=== PATIENT | female | born 1970 | race Caucasian/White ===

== ENCOUNTER 2016-11-13 19:21 | Emergency (ER) | payer BC ==
[~2016-11-13] VITALS: Ht 162.6 cm; Wt 108.9 kg
[~2016-11-13 19:21] MED LIST: ALPR0.25 PO; ALPR1TAB PO; AMIT10TA PO; DICY20TA30 PO; DULO20CA PO; DULO60CA6 PO; HYDR-2666 PO; HYDR-2678 PO; HYDR-971 PO; LANS15CA PO; LIDO30CR6 TP; MIRT15TA PO; NITR100C62 PO; OMEP20CA9 PO; ONDA4TAB10 SL; OXYC-323 PO; PANT40TA3 PO; PROM25TA10 PO; SIMV5TAB PO; TRAM50TA PO
[2016-11-13 21:56] LABS: BASO % 1 % (0-3); EOS % 3 % (0-3); HEMATOCRIT 33.9 % (36.0-47.0); HEMOGLOBIN 10.4 g/dL (12.0-15.5); LYMPH # 1.2 x10^3/uL (1.0-4.8); LYMPH % 19 % (24-48); MEAN CORPUSCULAR HEMOGLOBIN 25 pg (25-35); MEAN CORPUSCULAR HGB CONC 31 g/dL (31-37); MEAN CORPUSCULAR VOLUME 80 fL (79-100); MONO % 8 % (0-9); NEUT % 70 % (31-73); PLATELET COUNT 253 x10^3/uL (140-400); RED BLOOD COUNT 4.22 x10^6/uL (3.50-5.40); RED CELL DISTRIBUTION WIDTH 15.1 % (11.5-14.5); WHITE BLOOD COUNT 6.4 x10^3/uL (4.0-11.0)
[2016-11-13] MEDS ORDERED: HYDROMORPHONE 2 MG/ML VIAL. IV ONE (22:00)
[2016-11-13] MEDS ORDERED: IV NORMAL SALINE 1000ML BAG 1,000 ML IV ONE (22:00)
[2016-11-13] MEDS ORDERED: ONDANSETRON PF 4 MG/2 ML VIAL. IV ONE (22:00)
[2016-11-13 22:10] LABS: CALCIUM 9.2 mg/dL (8.5-10.1); CREATININE 0.8 mg/dL (0.6-1.0); GFR 76.9
[2016-11-13 22:12] LABS: ALBUMIN 3.8 g/dL (3.4-5.0); ALBUMIN/GLOBULIN RATIO 1.1 (1.0-1.7); TOTAL BILIRUBIN 0.2 mg/dL (0.2-1.0); TOTAL PROTEIN 7.3 g/dL (6.4-8.2)
--- NOTE | 2016-11-13 22:41 | PHYS DOC ---
Past Medical History Past Medical History: Anxiety, Constipation, Depression, GERD, High Cholesterol Additional Past Medical Histor: rectal ulcers endometrosis c.diff insomnia Past Surgical History: Appendectomy, Cholecystectomy, Hysterectomy Additional Past Surgical Histo: rectal sx Alcohol Use: Rarely Drug Use: None Adult General Chief Complaint Chief Complaint: RECTAL BLEED HPI HPI Patient is a 46 year old female who presents here today complaining of rectal pain and suprapubic discomfort as well as rectal bleeding that has been going on for approximately 1 day. Patient reports that she had similar symptoms in the past. Patient reports she has no history of hypertension diabetes liver longer kidney problems. Patient has had her appendix gallbladder and uterus removed in the past. Patient smokes about half a pack per day. Patient denied any alcohol or do any drugs. Patient is allergic to Keflex. Patient denies any fevers chills nausea vomiting. Patient reports she been having watery diarrhea approximately 2-3 bowel movement today. Patient has any constipation. Patient has a dysuria frequency or urgency. Patient reports that she had a colonoscopy approximately 6 months ago and was reported to have had a ulcer in her rectum. While in the ER, patient had a workup done with labs and a rectal exam. Patient' s labs are unremarkable. Patient's hemoglobin has remained stable. Patient was given medication to assist with the pain. Patient is currently clinically and hemodynamically stable for discharge to home. Patient likely has an exacerbation of her rectal ulcer versus lower GI bleed type symptoms. I discussed the patient that she will need to follow-up with her GI specialist for a repeat colonoscopy/sigmoidoscopy. Patient's vital signs remained stable. Patient denies any chest pain shortness of breath fevers shaking chills cough cold runny nose. Patient denies any dizziness syncope or presyncopal episodes. Review of Systems Review of Systems Constitutional: Denies fever or chills [] Eyes: Denies change in visual acuity, redness, or eye pain [] All other review systems are negative except as documented in the history of present illness portion Current Medications Current Medications Current Medications Medications (Trade) Dose Ordered Sig/Ga Start Time Stop Time Status Last Admin Dose Admin Hydromorphone HCl (Dilaudid) 1 mg 1X ONCE 11/13/16 22:00 11/13/16 22:01 DC Ondansetron HCl (Zofran) 4 mg 1X ONCE 11/13/16 22:00 11/13/16 22:01 DC Sodium Chloride (Iv Sodium Chloride 0.9% 1000ml Bag) 1,000 ml @ 999 mls/hr 1X ONCE 11/13/16 22:00 11/13/16 23:00 Allergies Allergies Allergies Coded Allergies Type Severity Reaction Last Updated Verified cephalexin Allergy Intermediate rash, red ears 08/14/16 No Physical Exam Physical Exam Constitutional: Well developed, well nourished, no acute distress, non-toxic appearance. [] HENT: Normocephalic, atraumatic, bilateral external ears normal, oropharynx moist, no oral exudates, nose normal. [] Eyes: PERRLA, EOMI, conjunctiva normal, no discharge. [] Neck: Normal range of motion, no tenderness, supple, no stridor. [] Cardiovascular:Heart rate regular rhythm, no murmur [] Lungs & Thorax: Bilateral breath sounds clear to auscultation [] Abdomen: Bowel sounds normal, soft, no tenderness, no masses, no pulsatile masses. [] Skin: Warm, dry, no erythema, no rash. [] Back: No tenderness, no CVA tenderness. [] Extremities: No tenderness, no cyanosis, no clubbing, ROM intact, no edema. [] Neurologic: Alert and oriented X 3, normal motor function, normal sensory function, no focal deficits noted. [] Psychologic: Affect normal, judgement normal, mood normal. [] Current Patient Data Vital Signs Vital Signs Date Time Temp Pulse Resp B/P Pulse Ox O2 Delivery O2 Flow Rate FiO2 11/13/16 20:20 98.2 92 14 151/102 98 Room Air 98.2 Lab Values Laboratory Tests Test 11/13/16 20:25 White Blood Count 6.4x10^3/uL (4.0-11.0) Red Blood Count 4.22x10^6/uL (3.50-5.40) Hemoglobin 10.4g/dL (12.0-15.5) L Hematocrit 33.9% (36.0-47.0) L Mean Corpuscular Volume 80fL (79-100) Mean Corpuscular Hemoglobin 25pg (25-35) Mean Corpuscular Hemoglobin Concent 31g/dL (31-37) Red Cell Distribution Width 15.1% (11.5-14.5) H Platelet Count 253x10^3/uL (140-400) Neutrophils (%) (Auto) 70% (31-73) Lymphocytes (%) (Auto) 19% (24-48) L Monocytes (%) (Auto) 8% (0-9) Eosinophils (%) (Auto) 3% (0-3) Basophils (%) (Auto) 1% (0-3) Neutrophils # (Auto) 4.5x10^3uL (1.8-7.7) Lymphocytes # (Auto) 1.2x10^3/uL (1.0-4.8) Monocytes # (Auto) 0.5x10^3/uL (0.0-1.1) Eosinophils # (Auto) 0.2x10^3/uL (0.0-0.7) Basophils # (Auto) 0.0x10^3/uL (0.0-0.2) Sodium Level 143mmol/L (136-145) Potassium Level 4.0mmol/L (3.5-5.1) Chloride Level 106mmol/L (98-107) Carbon Dioxide Level 26mmol/L (21-32) Anion Gap 11 (6-14) Blood Urea Nitrogen 16mg/dL (7-20) Creatinine 0.8mg/dL (0.6-1.0) Estimated GFR (Cockcroft-Gault) 76.9 BUN/Creatinine Ratio 20 (6-20) Glucose Level 108mg/dL (70-99) H Calcium Level 9.2mg/dL (8.5-10.1) Total Bilirubin 0.2mg/dL (0.2-1.0) Aspartate Amino Transferase (AST) 16U/L (15-37) Alanine Aminotransferase (ALT) 41U/L (14-59) Alkaline Phosphatase 113U/L (46-116) Total Protein 7.3g/dL (6.4-8.2) Albumin 3.8g/dL (3.4-5.0) Albumin/Globulin Ratio 1.1 (1.0-1.7) Laboratory Tests 11/13/16 20:25 Laboratory Tests 11/13/16 20:25 EKG EKG [] Radiology/Procedures Radiology/Procedures [] Impressions: A/P this is a 46-year-old female who presents here today with recurrence of her rectal bleeding. Patient reports she's had similar symptoms in the past has been diagnosed with a ulceration on the wall of her rectum. Patient presents here today secondary to discomfort in her rectal area and she reports some bloody stools. Patient denies any hemodynamic instability. Patient's workup here is unremarkable. Patient will be stable for discharge home with close outpatient follow-up. Patient was instructed to return to the ER if she has any dizziness or increasing rectal bleeding. Course & Med Decision Making Course & Med Decision Making Pertinent Labs and Imaging studies reviewed. (See chart for details) [] Dragon Disclaimer Dragon Disclaimer This electronic medical record was generated, in whole or in part, using a voice recognition dictation system. Departure Departure Impression: Primary Impression: Abdominal pain Additional Impressions: Nausea & vomiting Rectal pain, chronic Rectal bleeding Disposition: 01 HOME, SELF-CARE Condition: STABLE Referrals: NO PCP (PCP) Patient Instructions: Rectal Bleeding Additional Instructions: Please follow up with her primary care physician for referral to see her GI specialist for repeat colonoscopy. Problem Qualifiers HASMUKH REBOLLEDO MD Nov 13, 2016 22:41
[2016-11-13 23:49] VITALS: BP 138/81
== END 2016-11-13 23:55 | disposition home or self-care (01) ==
LOC: ER 19:21
DX: K62.5 Hemorrhage of anus and rectum (principal); R10.9 Unspecified abdominal pain; R19.7 Diarrhea, unspecified; R11.2 Nausea with vomiting, unspecified; G89.29 Other chronic pain; E78.00 Pure hypercholesterolemia, unspecified; F17.210 Nicotine dependence, cigarettes, uncomplicated; K21.9 Gastro-esophageal reflux disease without esophagitis; Z90.49 Acquired absence of other specified parts of digestive tract; Z90.710 Acquired absence of both cervix and uterus; Z98.890 Other specified postprocedural states; Z88.1 Allergy status to other antibiotic agents
CPT/HCPCS: 36415; 80053; 85027; 96361; 96374; 96375; 99284; J1170; J2405; J7030

== ENCOUNTER 2016-11-24 18:46 | Emergency (ER) | payer BC ==
[~2016-11-24] VITALS: Ht 162.6 cm; Wt 108.9 kg
--- NOTE | 2016-11-24 20:43 | PHYS DOC ---
Past Medical History Past Medical History: Anxiety, Constipation, Depression, GERD, High Cholesterol Additional Past Medical Histor: rectal ulcers endometrosis c.diff insomnia Past Surgical History: Appendectomy, Cholecystectomy, Hysterectomy Additional Past Surgical Histo: rectal sx Alcohol Use: Occasionally Drug Use: None Adult General Chief Complaint Chief Complaint: VAGINAL BLEEDING HPI HPI Patient is a 46 year old female well known to the emergency department who presents with pelvic pain. Patient reports she had sexual intercourse this afternoon. During intercourse and after, she has been having lower pelvic pain she describes a sharp pain without clear mitigating factors. She also reports small amount of vaginal bleeding, which is concerning to her as she has had a hysterectomy. She tried some ibuprofen at home with insufficient relief. No other acute complaints. Review of Systems Review of Systems Constitutional: Denies fever or chills Respiratory: Denies cough or shortness of breath Cardiovascular: Denies chest pain GI: Denies abdominal pain, nausea, vomiting, or diarrhea : Pelvic pain, vaginal bleeding Musculoskeletal: Denies back pain or joint pain Neurologic: Denies headache, focal weakness or sensory changes Current Medications Current Medications Current Medications Medications (Trade) Dose Ordered Sig/Ga Start Time Stop Time Status Last Admin Dose Admin Acetaminophen/ Hydrocodone Bitart (Lortab 5/325) 2 tab 1X ONCE 11/24/16 21:45 11/24/16 21:46 DC Tramadol HCl (Ultram) 50 mg 1X ONCE 11/24/16 20:45 11/24/16 21:01 DC 11/24/16 21:13 50 MG Allergies Allergies Allergies Coded Allergies Type Severity Reaction Last Updated Verified cephalexin Allergy Intermediate rash, red ears 08/14/16 No prochlorperazine Allergy Intermediate 11/24/16 Yes Physical Exam Physical Exam Constitutional: Well developed, well nourished, no acute distress, non-toxic appearance HENT: Normocephalic, atraumatic, bilateral external ears normal Eyes: EOMI, conjunctiva normal, no discharge Neck: Normal range of motion, no stridor Cardiovascular: Heart rate normal, regular rhythm, no murmur Lungs & Thorax: Bilateral breath sounds clear to auscultation Abdomen: Bowel sounds normal, soft, non-distended, suprapubic TTP Pelvic: Scant amount dark red blood in vault, no laceration or other source of bleeding identified, no CMT, R adnexal tenderness Skin: Warm, dry, no erythema, no rash Extremities: No obvious deformity, no edema Neurologic: Alert and oriented X 3, no gross deficits noted Current Patient Data Vital Signs Vital Signs Date Time Temp Pulse Resp B/P Pulse Ox O2 Delivery O2 Flow Rate FiO2 11/24/16 22:00 76 133/80 98 Room Air 11/24/16 21:13 18 11/24/16 19:22 99.3 99.3 Lab Values Laboratory Tests Test 11/24/16 20:58 Urine Collection Type Void Urine Color Yellow Urine Clarity Clear Urine pH 7.0 Urine Specific [place] 1.015 Urine Protein Negativemg/dL (NEG-TRACE) Urine Glucose (UA) Negativemg/dL (NEG) Urine Ketones (Stick) Negativemg/dL (NEG) Urine Blood Large (NEG) Urine Nitrite Negative (NEG) Urine Bilirubin Negative (NEG) Urine Urobilinogen Dipstick 0.2mg/dL (0.2 mg/dL) Urine Leukocyte Esterase Small (NEG) Urine RBC >40/HPF (0-2) Urine WBC 1-4/HPF (0-4) Urine Squamous Epithelial Cells Many/LPF Urine Bacteria Moderate/HPF (0-FEW) Microbiology 11/24/16 Wet Prep - Final, Complete Microbiology 11/24/16 Wet Prep - Final, Complete EKG EKG [] Radiology/Procedures Radiology/Procedures Pelvic US: Impression: Status post hysterectomy and bilateral oophorectomy. No abnormality is detected. Course & Med Decision Making Course & Med Decision Making Pertinent Labs and Imaging studies reviewed. (See chart for details) Patient is 46-year-old female who presents with pelvic pain and vaginal bleeding after intercourse this afternoon. No source of bleeding identified, only very small amount of blood in vault. Pelvic ultrasound ordered given right adnexal tenderness. Imaging results as above. Pelvic swabs notable for clue cells indicating bacterial vaginosis. Tramadol initially ordered for pain control; patient reports continued pain after this, so dose of [place] ordered. Patient then became argumentative asking for IV pain medication; I discussed with her that I did not believe this was an appropriate treatment for her pain, especially as she has been flagged for drug-seeking behavior in the past. I discussed results with patient. I instructed her to follow-up with [facility]. Patient discharged home with prescription for Flagyl and return precautions. Dragon Disclaimer Dragon Disclaimer This electronic medical record was generated, in whole or in part, using a voice recognition dictation system. Departure Departure Impression: Primary Impression: Painful sexual intercourse Additional Impressions: Vaginal bleeding Bacterial vaginosis Disposition: 01 HOME, SELF-CARE Condition: STABLE Referrals: UNKNOWN PCP NAME (PCP) Patient Instructions: Bacterial Vaginosis, Pelvic Pain, Female Additional Instructions: Thank you for allowing us to provide care today in the Emergency Department. Take the provided medication as directed. Schedule a follow up appointment with your ObGyn. Return promptly to the Emergency Department if you develop any new or concerning symptoms. Scripts Metronidazole (Flagyl)500 Mg Tablet1 Tab PO BID #14 TAB Prov:COREY BURNHAM MD 11/24/16 Problem Qualifiers COREY BURNHAM MD Nov 24, 2016 20:43
[2016-11-24] MEDS ORDERED: TRAMADOL 50 MG TABLET. PO ONE (20:45)
[2016-11-24 21:05] LABS: BILIRUBIN,URINE NEGATIVE (NEG); GLUCOSE,URINE NEGATIVE (NEG); NITRITE,URINE NEGATIVE (NEG); PROTEIN,URINE NEGATIVE (NEG-TRACE); UROBILINOGEN,URINE 0.2 mg/dL (0.2 mg/dL)
[2016-11-24 21:19] LABS: BACTERIA,URINE MODERATE /HPF (0-FEW); RBC,URINE >40 /HPF (0-2); SQUAMOUS EPITHELIAL CELL,UR MANY /LPF
[2016-11-24] MEDS ORDERED: HYDROCODONE/APAP 5/325MG TABLET. PO ONE (21:45)
[2016-11-24 22:00] VITALS: BP 133/80
--- NOTE | 2016-11-24 22:29 | RAD ---
Pelvis with transvaginal ultrasound Indication: Pelvic pain and vaginal bleeding. Patient has had prior complete hysterectomy in 2008. Transabdominal and transvaginal pelvic sonography was performed. The uterus is surgically absent. The right and left ovaries are surgically absent. The bladder is unremarkable. No pelvic mass or fluid collection is seen. Impression: Status post hysterectomy and bilateral oophorectomy. No abnormality is detected. Electronically signed by: Yo Fritz MD (Nov 24, 2016 22:28:22)
[2016-11-24] MEDS ORDERED: METR500T PO (22:56)
== END 2016-11-24 23:07 | disposition home or self-care (01) ==
LOC: ER 18:52
DX: N93.8 Other specified abnormal uterine and vaginal bleeding (principal); N76.0 Acute vaginitis; F41.9 Anxiety disorder, unspecified; F32.9 Major depressive disorder, single episode, unspecified; E78.00 Pure hypercholesterolemia, unspecified; G47.00 Insomnia, unspecified; Z90.710 Acquired absence of both cervix and uterus; Z90.49 Acquired absence of other specified parts of digestive tract; Z88.1 Allergy status to other antibiotic agents; Z88.8 Allergy status to other drugs, medicaments and biological substances
CPT/HCPCS: 76830; 76856; 81001; 99285; Q0111; 87086; 87491; 87591

== ENCOUNTER 2016-12-01 18:34 | Emergency (ER) | payer BC ==
[~2016-12-01] VITALS: Ht 162.6 cm; Wt 108.9 kg
[~2016-12-01 18:34] MED LIST changes: +METR500T PO
[2016-12-01 21:18] VITALS: BP 118/56
[2016-12-01] MEDS ORDERED: HYDROMORPHONE 2 MG/ML VIAL. IM ONE (21:30)
[2016-12-01] MEDS ORDERED: ONDANSETRON ODT 4 MG TAB.RAPDIS PO ONE (21:30)
[2016-12-01 21:39] LABS: BASO # 0.1 x10^3/uL (0.0-0.2); BASO % 1 % (0-3); EOS % 2 % (0-3); HEMATOCRIT 32.2 % (36.0-47.0); HEMOGLOBIN 10.3 g/dL (12.0-15.5); LYMPH # 1.1 x10^3/uL (1.0-4.8); LYMPH % 15 % (24-48); MEAN CORPUSCULAR HEMOGLOBIN 25 pg (25-35); MEAN CORPUSCULAR HGB CONC 32 g/dL (31-37); MEAN CORPUSCULAR VOLUME 79 fL (79-100); MONO % 6 % (0-9); NEUT % 76 % (31-73); PLATELET COUNT 269 x10^3/uL (140-400); RED BLOOD COUNT 4.06 x10^6/uL (3.50-5.40); WHITE BLOOD COUNT 7.3 x10^3/uL (4.0-11.0)
[2016-12-01 21:56] LABS: CREATININE 0.8 mg/dL (0.6-1.0); GFR 76.9; POTASSIUM 3.8 mmol/L (3.5-5.1)
[2016-12-01 21:57] LABS: MAGNESIUM 1.9 mg/dL (1.8-2.4)
--- NOTE | 2016-12-01 22:09 | PHYS DOC ---
Past Medical History Past Medical History: Anemia, Anxiety, Constipation, Depression, GERD, High Cholesterol Additional Past Medical Histor: rectal ulcers endometrosis c.diff insomnia Past Surgical History: Appendectomy, Cholecystectomy, Hysterectomy Additional Past Surgical Histo: rectal sx Alcohol Use: Occasionally Drug Use: None Adult General Chief Complaint Chief Complaint: RECTAL BLEED HPI HPI Patient is a 46 year old female who presents with complaint of lower abdominal pain and rectal bleeding. The patient states that her symptoms started within the last 2-3 hours. The patient has a well-documented history of recurrent rectal bleeding secondary to rectal ulcers. The patient has had multiple visits to the emergency department for recurrent symptoms. Patient states that she is currently taking sulfasalazine and hydrocortisone suppositories. Patient rates her pain currently as 9 out of 10. Patient follows Dr. Jauregui for primary care. Patient denies any fevers. The patient states that earlier she passed what appeared to be clots. Patient has not had any continued bleeding at this time. Review of Systems Review of Systems Constitutional: Denies fever or chills [] Eyes: Denies change in visual acuity, redness, or eye pain [] HENT: Denies nasal congestion or sore throat [] Respiratory: Denies cough or shortness of breath [] Cardiovascular: Denies chest pain or edema [] GI: Abdominal pain, rectal bleeding, denies nausea or vomiting [] : Denies dysuria or hematuria [] Musculoskeletal: Denies back pain or joint pain [] Integument: Denies rash or skin lesions [] Neurologic: Denies headache, focal weakness or sensory changes [] Current Medications Current Medications Current Medications Medications (Trade) Dose Ordered Sig/Ga Start Time Stop Time Status Last Admin Dose Admin Hydromorphone HCl (Dilaudid) 1 mg 1X ONCE 12/01/16 21:30 12/01/16 21:31 DC 12/01/16 21:27 1 MG Ondansetron HCl (Zofran Odt) 4 mg 1X ONCE 12/01/16 21:30 12/01/16 21:31 DC 12/01/16 21:27 4 MG Allergies Allergies Allergies Coded Allergies Type Severity Reaction Last Updated Verified cephalexin Allergy Intermediate rash, red ears 08/14/16 No prochlorperazine Allergy Intermediate 11/24/16 Yes Physical Exam Physical Exam Constitutional: Alert, afebrile, appears in [id number] discomfort. [] HENT: Normocephalic, atraumatic, bilateral external ears normal, oropharynx moist, no oral exudates, nose normal. [] Eyes: PERRLA, EOMI, conjunctiva normal, no discharge. [] Neck: Normal range of motion, no tenderness, supple, no stridor. [] Cardiovascular:Heart rate regular rhythm, no murmur [] Lungs & Thorax: Bilateral breath sounds clear to auscultation [] Abdomen: Bowel sounds normal, soft, suprapubic tenderness to palpation, no guarding or rebound tenderness, no masses, no pulsatile masses. Rectal: No external fissures, scant amount of bright red blood mixed with normal colored stool on rectal exam, nontender on exam [] Skin: Warm, dry, no erythema, no rash. [] Back: No tenderness, no CVA tenderness. [] Extremities: No tenderness, no cyanosis, no clubbing, ROM intact, no edema. [] Neurologic: Alert and oriented X 3, normal motor function, normal sensory function, no focal deficits noted. [] Current Patient Data Vital Signs Vital Signs Date Time Temp Pulse Resp B/P Pulse Ox O2 Delivery O2 Flow Rate FiO2 12/01/16 21:27 18 12/01/16 21:18 84 118/56 94 Room Air 12/01/16 19:26 98.4 98.4 Lab Values Laboratory Tests Test 12/01/16 21:20 White Blood Count 7.3x10^3/uL (4.0-11.0) Red Blood Count 4.06x10^6/uL (3.50-5.40) Hemoglobin 10.3g/dL (12.0-15.5) L Hematocrit 32.2% (36.0-47.0) L Mean Corpuscular Volume 79fL (79-100) Mean Corpuscular Hemoglobin 25pg (25-35) Mean Corpuscular Hemoglobin Concent 32g/dL (31-37) Red Cell Distribution Width 15.0% (11.5-14.5) H Platelet Count 269x10^3/uL (140-400) Neutrophils (%) (Auto) 76% (31-73) H Lymphocytes (%) (Auto) 15% (24-48) L Monocytes (%) (Auto) 6% (0-9) Eosinophils (%) (Auto) 2% (0-3) Basophils (%) (Auto) 1% (0-3) Neutrophils # (Auto) 5.5x10^3uL (1.8-7.7) Lymphocytes # (Auto) 1.1x10^3/uL (1.0-4.8) Monocytes # (Auto) 0.5x10^3/uL (0.0-1.1) Eosinophils # (Auto) 0.1x10^3/uL (0.0-0.7) Basophils # (Auto) 0.1x10^3/uL (0.0-0.2) Sodium Level 140mmol/L (136-145) Potassium Level 3.8mmol/L (3.5-5.1) Chloride Level 103mmol/L (98-107) Carbon Dioxide Level 27mmol/L (21-32) Anion Gap 10 (6-14) Blood Urea Nitrogen 12mg/dL (7-20) Creatinine 0.8mg/dL (0.6-1.0) Estimated GFR (Cockcroft-Gault) 76.9 Glucose Level 99mg/dL (70-99) Calcium Level 9.0mg/dL (8.5-10.1) Magnesium Level 1.9mg/dL (1.8-2.4) Laboratory Tests 12/01/16 21:20 Laboratory Tests 12/01/16 21:20 EKG EKG Not performed [] Radiology/Procedures Radiology/Procedures Not performed [] Course & Med Decision Making Course & Med Decision Making Pertinent Labs and Imaging studies reviewed. (See chart for details) The patient does not have continued signs of heavy rectal bleeding. The patient' s vital signs are stable and patient's hemoglobin is stable compared to previous results. The patient is likely experiencing intermittent bleeding from her rectal ulcers. Patient was provided with pain control in the emergency department. Advised to continue on home medications and follow up with Dr. Jauregui in the next 3 days. Advised return emergency department for any worsening symptoms. Patient was understanding and in agreement with treatment plan. Dragon Disclaimer Dragon Disclaimer This electronic medical record was generated, in whole or in part, using a voice recognition dictation system. Departure Departure Impression: Primary Impression: Abdominal pain Additional Impression: Rectal bleeding Disposition: HOME, SELF-CARE Condition: STABLE Referrals: UNKNOWN PCP NAME (PCP) Patient Instructions: Abdominal Pain (Nonspecific), Rectal Bleeding Additional Instructions: Follow-up with your primary doctor in the next 3 days. Return to the emergency department for any worsening symptoms. Problem Qualifiers Primary Impression: Abdominal pain Abdominal location: lower abdomen, unspecified Qualified Code: R10.30 - Lower abdominal pain, unspecified GALE CABALLERO MD Dec 01, 2016 22:09
== END 2016-12-01 22:17 | disposition home or self-care (01) ==
LOC: ER 18:34
DX: K62.5 Hemorrhage of anus and rectum (principal); R10.30 Lower abdominal pain, unspecified; E78.00 Pure hypercholesterolemia, unspecified; F32.9 Major depressive disorder, single episode, unspecified; K21.9 Gastro-esophageal reflux disease without esophagitis; Z90.49 Acquired absence of other specified parts of digestive tract; Z88.8 Allergy status to other drugs, medicaments and biological substances
CPT/HCPCS: 36415; 80048; 83735; 85027; 96372; 99284; J1170; Q0162

== ENCOUNTER 2016-12-12 11:40 | Emergency (ER) | payer BC ==
[~2016-12-12] VITALS: Ht 162.6 cm; Wt 108.9 kg
[2016-12-12] MEDS ORDERED: MORPHINE SULFATE 4 MG/ML DISP.SYRIN. IV ONE ×2 (12:15→13:45)
[2016-12-12] MEDS ORDERED: ONDANSETRON PF 4 MG/2 ML VIAL. IV ONE (12:15)
--- NOTE | 2016-12-12 12:40 | PHYS DOC ---
Past Medical History Past Medical History: Anemia, Anxiety, Constipation, Depression, GERD, High Cholesterol Additional Past Medical Histor: rectal ulcers endometrosis c.diff insomnia Past Surgical History: Appendectomy, Cholecystectomy, Hysterectomy Additional Past Surgical Histo: rectal sx Alcohol Use: Occasionally Drug Use: None Adult General Chief Complaint Chief Complaint: MULTIPLE TRAUMA/FALL HPI HPI 46-year-old female who had a fall from a 3-4 foot height off a ladder after she states she was trying to change a light bulb and the dog ran into a ladder and knocked the ladder and her onto the floor. She does not states she hit her head or had any loss of consciousness. She states she fell on her right and has significant left upper quadrant and left lateral abdominal pain. Patient was able to bear weight and ambulate with mild difficulty. She does also complain of some mild pain in her wrist and forearm but has full range of motion and has no swelling or bruising seen. Patient denies taking any blood thinning medications. She rates her pain a 8 out of 10 localized all to the left lateral abdominal wall and is made worse when she sits forward but has mild pain at rest. She denies any blood in her stool or urine. Review of Systems Review of Systems Constitutional: Denies fever or chills [] Eyes: Denies change in visual acuity, redness, or eye pain [] HENT: Denies nasal congestion or sore throat [] Respiratory: Denies cough or shortness of breath [] Cardiovascular: No additional information not addressed in HPI [] GI: Has abdominal pain, has nausea, denies vomiting, denies bloody stools or diarrhea [] : Denies dysuria or hematuria [] Musculoskeletal: Denies back pain or joint pain [] Integument: Denies rash or skin lesions [] Neurologic: Denies headache, focal weakness or sensory changes [] Endocrine: Denies polyuria or polydipsia [] Current Medications Current Medications Current Medications Medications (Trade) Dose Ordered Sig/Ga Start Time Stop Time Status Last Admin Dose Admin Iohexol (Omnipaque 300 Mg/ml) 75 ml 1X ONCE 12/12/16 12:45 12/12/16 12:49 DC 12/12/16 13:17 75 ML Morphine Sulfate 4 mg 1X ONCE 12/12/16 13:45 12/12/16 13:46 DC 12/12/16 13:50 4 MG Ondansetron HCl (Zofran) 4 mg 1X ONCE 12/12/16 12:15 12/12/16 12:16 DC 12/12/16 12:33 4 MG Allergies Allergies Allergies Coded Allergies Type Severity Reaction Last Updated Verified cephalexin Allergy Intermediate rash, red ears 08/14/16 No prochlorperazine Allergy Intermediate 11/24/16 Yes Physical Exam Physical Exam Constitutional: Well developed, well nourished, no acute distress, non-toxic appearance. [] HENT: Normocephalic, atraumatic, bilateral external ears normal, oropharynx moist, no oral exudates, nose normal. [] Eyes: PERRLA, EOMI, conjunctiva normal, no discharge. [] Neck: Normal range of motion, no tenderness, supple, no stridor. [] Cardiovascular:Heart rate regular rhythm, no murmur [] Lungs & Thorax: Bilateral breath sounds clear to auscultation [] Abdomen: Bowel sounds normal, soft, moderate LUQ and left lateral abdominal wall tenderness, no masses, no pulsatile masses. [] Skin: Warm, dry, no erythema, no rash. [] Back: No tenderness, no CVA tenderness. [] Extremities: No significant tenderness in any extremity, no cyanosis, no clubbing, ROM intact, no edema, there is no swelling or bruising. [] Neurologic: Alert and oriented X 3, normal motor function, normal sensory function, no focal deficits noted. [] Psychologic: Affect normal, judgement normal, mood normal. [] Current Patient Data Vital Signs Vital Signs Date Time Temp Pulse Resp B/P Pulse Ox O2 Delivery O2 Flow Rate FiO2 12/12/16 13:50 16 97 Room Air 12/12/16 12:03 98.2 112 151/90 98.2 Lab Values Laboratory Tests Test 12/12/16 12:30 12/12/16 12:40 White Blood Count 6.2x10^3/uL (4.0-11.0) Red Blood Count 4.01x10^6/uL (3.50-5.40) Hemoglobin 9.9g/dL (12.0-15.5) L Hematocrit 31.5% (36.0-47.0) L Mean Corpuscular Volume 79fL (79-100) Mean Corpuscular Hemoglobin 25pg (25-35) Mean Corpuscular Hemoglobin Concent 31g/dL (31-37) Red Cell Distribution Width 15.2% (11.5-14.5) H Platelet Count 254x10^3/uL (140-400) Neutrophils (%) (Auto) 79% (31-73) H Lymphocytes (%) (Auto) 13% (24-48) L Monocytes (%) (Auto) 5% (0-9) Eosinophils (%) (Auto) 3% (0-3) Basophils (%) (Auto) 1% (0-3) Neutrophils # (Auto) 4.9x10^3uL (1.8-7.7) Lymphocytes # (Auto) 0.8x10^3/uL (1.0-4.8) L Monocytes # (Auto) 0.3x10^3/uL (0.0-1.1) Eosinophils # (Auto) 0.2x10^3/uL (0.0-0.7) Basophils # (Auto) 0.0x10^3/uL (0.0-0.2) Sodium Level 142mmol/L (136-145) Potassium Level 3.8mmol/L (3.5-5.1) Chloride Level 103mmol/L (98-107) Carbon Dioxide Level 27mmol/L (21-32) Anion Gap 12 (6-14) Blood Urea Nitrogen 17mg/dL (7-20) Creatinine 0.9mg/dL (0.6-1.0) Estimated GFR (Cockcroft-Gault) 67.1 Glucose Level 155mg/dL (70-99) H Calcium Level 9.1mg/dL (8.5-10.1) Urine Collection Type Void Urine Color Yellow Urine Clarity Clear Urine pH 6.0 Urine Specific [place] 1.025 Urine Protein Negativemg/dL (NEG-TRACE) Urine Glucose (UA) Negativemg/dL (NEG) Urine Ketones (Stick) Negativemg/dL (NEG) Urine Blood Negative (NEG) Urine Nitrite Negative (NEG) Urine Bilirubin Negative (NEG) Urine Urobilinogen Dipstick 0.2mg/dL (0.2 mg/dL) Urine Leukocyte Esterase Negative (NEG) Urine RBC 0/HPF (0-2) Urine WBC 1-4/HPF (0-4) Urine Squamous Epithelial Cells Few/LPF Urine Bacteria 0/HPF (0-FEW) Urine Mucus Mod/LPF Laboratory Tests 12/12/16 12:30 Laboratory Tests 12/12/16 12:30 EKG EKG [] Radiology/Procedures Radiology/Procedures CT of the abdomen/pelvis with IV contrast demonstrates the following: Indication left-sided pain associated with a fall off a ladder today. Axial images through the chest were obtained. 75 cc of Omnipaque 300 was administered intravenously. No oral contrast was administered. Note is made of a previous examination 09/30/2016. A significant finding in the abdominal wall is not seen. There is a small periumbilical hernia which appears uncomplicated. The lung bases are clear. A definite bony abnormality is not seen. The liver and spleen appear unremarkable. Clips are seen in the gallbladder fossa. The adrenal glands and kidneys appear normal. No pancreatic abnormality is seen. Acute finding in the abdomen is not apparent. In the pelvis no mass or acute finding or significant finding is seen. Occasional diverticula are seen associated with the sigmoid colon. Course & Med Decision Making Course & Med Decision Making Pertinent Labs and Imaging studies reviewed. (See chart for details) This 46-year-old female who's having significant left upper quadrant pain after having a fall will have a CT of her abdomen and pelvis to rule out any acute organ injury. I will also obtain blood work and urinalysis. IV will be placed for pain and nausea control. Ultimately if her imaging is negative, she'll be discharged home with a short course of pain control. Upon my reassessment, the patient feels improved after several doses of morphine. Her laboratory work was unremarkable. A CT of her abdomen and pelvis was also negative for any acute abnormalities. I will be discharging her home with a short course of pain control and told her to avoid any strenuous activities and to follow closely with her primary care doctor in the next several days for symptom resolution. She is very agreeable with this plan and will be discharged without incident. Charbel Disclaimer Charbel Disclaimer This electronic medical record was generated, in whole or in part, using a voice recognition dictation system. Departure Departure Impression: Primary Impression: Abdominal pain Additional Impression: Fall Disposition: HOME, SELF-CARE Admitting Physician: Other Condition: IMPROVED Referrals: UNKNOWN PCP NAME (PCP) Patient Instructions: Abdominal Pain (Nonspecific) Additional Instructions: Please take your pain medications as needed and avoid any strenuous activities. Follow up closely with your primary doctor in the next 2-3 days. Return to the ER if you develop any worsening of your symptoms. Scripts Hydrocodone/Apap 5-325 ([place] 5-325 Tablet)1 Each Tablet1 Tab PO PRN Q6HRS PRN PAIN #10 TAB Prov:DAKSHA BURTON DO 12/12/16 Problem Qualifiers DAKSHA BURTON DO Dec 12, 2016 12:40
[2016-12-12] MEDS ORDERED: IOHEXOL 300 MG/ML 75 ML VIAL IV ONE (12:45)
[2016-12-12 12:54] LABS: BILIRUBIN,URINE NEGATIVE (NEG); GLUCOSE,URINE NEGATIVE (NEG); NITRITE,URINE NEGATIVE (NEG); PROTEIN,URINE NEGATIVE (NEG-TRACE); UROBILINOGEN,URINE 0.2 mg/dL (0.2 mg/dL)
[2016-12-12 12:54] LABS: BASO % 1 % (0-3); EOS % 3 % (0-3); HEMATOCRIT 31.5 % (36.0-47.0); HEMOGLOBIN 9.9 g/dL (12.0-15.5); LYMPH # 0.8 x10^3/uL (1.0-4.8); LYMPH % 13 % (24-48); MEAN CORPUSCULAR HEMOGLOBIN 25 pg (25-35); MEAN CORPUSCULAR HGB CONC 31 g/dL (31-37); MEAN CORPUSCULAR VOLUME 79 fL (79-100); MONO % 5 % (0-9); NEUT % 79 % (31-73); PLATELET COUNT 254 x10^3/uL (140-400); RED BLOOD COUNT 4.01 x10^6/uL (3.50-5.40); RED CELL DISTRIBUTION WIDTH 15.2 % (11.5-14.5); WHITE BLOOD COUNT 6.2 x10^3/uL (4.0-11.0)
[2016-12-12 13:01] LABS: CALCIUM 9.1 mg/dL (8.5-10.1); CREATININE 0.9 mg/dL (0.6-1.0); GFR 67.1; POTASSIUM 3.8 mmol/L (3.5-5.1)
[2016-12-12 13:12] LABS: BACTERIA,URINE 0 /HPF (0-FEW); RBC,URINE 0 /HPF (0-2); SQUAMOUS EPITHELIAL CELL,UR FEW /LPF
--- NOTE | 2016-12-12 13:53 | RAD ---
Indication left-sided pain associated with a fall off a ladder today. Axial images through the chest were obtained. 75 cc of Omnipaque 300 was administered intravenously. No oral contrast was administered. Note is made of a previous examination 09/30/2016. A significant finding in the abdominal wall is not seen. There is a small periumbilical hernia which appears uncomplicated. The lung bases are clear. A definite bony abnormality is not seen. The liver and spleen appear unremarkable. Clips are seen in the gallbladder fossa. The adrenal glands and kidneys appear normal. No pancreatic abnormality is seen. Acute finding in the abdomen is not apparent. In the pelvis no mass or acute finding or significant finding is seen. Occasional diverticula are seen associated with the sigmoid colon. IMPRESSION: No acute finding seen in the abdomen or pelvis
[2016-12-12] MEDS ORDERED: HYDR-971 PO (13:58)
[2016-12-12 14:00] VITALS: BP 129/74
== END 2016-12-12 14:10 | disposition home or self-care (01) ==
LOC: ER 11:40
DX: R10.12 Left upper quadrant pain (principal); M25.539 Pain in unspecified wrist; M79.639 Pain in unspecified forearm; E78.00 Pure hypercholesterolemia, unspecified; K21.9 Gastro-esophageal reflux disease without esophagitis; G47.00 Insomnia, unspecified; Z90.710 Acquired absence of both cervix and uterus; Z90.49 Acquired absence of other specified parts of digestive tract; Z88.1 Allergy status to other antibiotic agents; Z88.8 Allergy status to other drugs, medicaments and biological substances; W11.XXXA Fall on and from ladder, initial encounter; Y93.89 Activity, other specified; Y99.8 Other external cause status; Y92.89 Other specified places as the place of occurrence of the external cause
CPT/HCPCS: 36415; 74177; 80048; 81001; 85027; 96374; 96375; 96376; 99285; J2270; J2405; Q9967

== ENCOUNTER 2016-12-14 17:21 | Emergency (ER) | payer BC ==
[~2016-12-14] VITALS: Ht 162.6 cm; Wt 108.9 kg
[2016-12-14 19:15] VITALS: BP 138/90
[2016-12-14] MEDS ORDERED: ONDANSETRON PF 4 MG/2 ML VIAL. IV ONE (21:00)
[2016-12-14] MEDS ORDERED: HYDROMORPHONE 2 MG/ML VIAL. IV ONE (21:00)
[2016-12-14 21:43] LABS: BASO # 0.1 x10^3/uL (0.0-0.2); BASO % 1 % (0-3); EOS % 4 % (0-3); HEMOGLOBIN 9.3 g/dL (12.0-15.5); LYMPH # 0.8 x10^3/uL (1.0-4.8); LYMPH % 15 % (24-48); MEAN CORPUSCULAR HEMOGLOBIN 25 pg (25-35); MEAN CORPUSCULAR HGB CONC 32 g/dL (31-37); MEAN CORPUSCULAR VOLUME 79 fL (79-100); MONO % 8 % (0-9); NEUT % 73 % (31-73); PLATELET COUNT 253 x10^3/uL (140-400); RED BLOOD COUNT 3.69 x10^6/uL (3.50-5.40); RED CELL DISTRIBUTION WIDTH 15.2 % (11.5-14.5); WHITE BLOOD COUNT 5.6 x10^3/uL (4.0-11.0)
[2016-12-14 21:53] LABS: CALCIUM 9.1 mg/dL (8.5-10.1); CREATININE 0.8 mg/dL (0.6-1.0); GFR 76.9
[2016-12-14 21:59] LABS: ALBUMIN 3.5 g/dL (3.4-5.0); ALBUMIN/GLOBULIN RATIO 0.9 (1.0-1.7); TOTAL BILIRUBIN 0.2 mg/dL (0.2-1.0); TOTAL PROTEIN 7.3 g/dL (6.4-8.2)
[2016-12-14] MEDS ORDERED: TRAM-29 PO (22:07)
--- NOTE | 2016-12-14 22:07 | PHYS DOC ---
Past Medical History Past Medical History: Anemia, Anxiety, Constipation, Depression, GERD, High Cholesterol Additional Past Medical Histor: rectal ulcers endometrosis c.diff insomnia Past Surgical History: Appendectomy, Cholecystectomy, Hysterectomy Additional Past Surgical Histo: rectal sx Alcohol Use: Occasionally Drug Use: None Adult General Chief Complaint Chief Complaint: ABDOMINAL PAIN HPI HPI Patient is a 46 year old female who presents to the ER today complaining of abdominal pain in the left upper area. Patient reports that she was seen in the ER here on Wednesday after falling from a chair that she was standing on and injured her abdomen up against the corner of a table. Patient came to the ER and had a full workup done at that time including blood tests and a CT scan of her abdomen to rule out bleeding. Patient reports that everything was normal and she was sent home with pain medicines. Patient reports she was doing better however the pain started getting worse today so she came to the ER. Patient denies any hypertension diabetes liver lung or kidney problems. Patient reports she smokes. No alcohol or drugs. Patient is allergic to Keflex. Patient denies any fevers shaking chills diarrhea cough URI symptoms dysuria frequency urgency hematuria nausea or vomiting. Patient's physical exam the ER reveals a small bruise to her left upper abdomen. Patient's vital signs are otherwise normal. Patient has no rebound or guarding. Patient does not present with signs or symptoms of be consistent with acute surgical abdomen. Patient's ER workup consisted of normal labs. Her hemoglobin is not significantly changed. My suspicion for intra-abdominal bleeding is extremely low in this patient. She is not on any anticoagulants. I feel very comfortable sending this patient home at this time for further outpatient evaluation. Patient has had multiple ER visits for pain management issues. I do not feel comfortable giving this patient any further narcotics. I will give her a days worth of Ultram until she is able see her primary care physician to reassess her pain and her need for pain medicines. Review of Systems Review of Systems Constitutional: Denies fever or chills [] Eyes: Denies change in visual acuity, redness, or eye pain [] All other review systems are negative except as documented in the history of present illness portion. Current Medications Current Medications Current Medications Medications (Trade) Dose Ordered Sig/Ga Start Time Stop Time Status Last Admin Dose Admin Hydromorphone HCl (Dilaudid) 0.5 mg 1X ONCE 12/14/16 21:00 12/14/16 21:01 DC 12/14/16 21:46 0.5 MG Ondansetron HCl (Zofran) 4 mg 1X ONCE 12/14/16 21:00 12/14/16 21:01 DC 12/14/16 21:46 4 MG Allergies Allergies Allergies Coded Allergies Type Severity Reaction Last Updated Verified cephalexin Allergy Intermediate rash, red ears 08/14/16 No prochlorperazine Allergy Intermediate 11/24/16 Yes Physical Exam Physical Exam Constitutional: Well developed, well nourished, no acute distress, non-toxic appearance. [] HENT: Normocephalic, atraumatic, bilateral external ears normal, oropharynx moist, no oral exudates, nose normal. [] Eyes: PERRLA, EOMI, conjunctiva normal, no discharge. [] Neck: Normal range of motion, no tenderness, supple, no stridor. [] Cardiovascular:Heart rate regular rhythm, no murmur [] Lungs & Thorax: Bilateral breath sounds clear to auscultation [] Abdomen: See above. Skin: Warm, dry, no erythema, no rash. [] Back: No tenderness, no CVA tenderness. [] Extremities: No tenderness, no cyanosis, no clubbing, ROM intact, no edema. [] Neurologic: Alert and oriented X 3, normal motor function, normal sensory function, no focal deficits noted. [] Psychologic: Affect normal, judgement normal, mood normal. [] Current Patient Data Vital Signs Vital Signs Date Time Temp Pulse Resp B/P Pulse Ox O2 Delivery O2 Flow Rate FiO2 12/14/16 21:46 Room Air 12/14/16 19:15 98.4 96 18 138/90 97 98.4 Lab Values Laboratory Tests Test 12/14/16 21:30 White Blood Count 5.6x10^3/uL (4.0-11.0) Red Blood Count 3.69x10^6/uL (3.50-5.40) Hemoglobin 9.3g/dL (12.0-15.5) L Hematocrit 29.0% (36.0-47.0) L Mean Corpuscular Volume 79fL (79-100) Mean Corpuscular Hemoglobin 25pg (25-35) Mean Corpuscular Hemoglobin Concent 32g/dL (31-37) Red Cell Distribution Width 15.2% (11.5-14.5) H Platelet Count 253x10^3/uL (140-400) Neutrophils (%) (Auto) 73% (31-73) Lymphocytes (%) (Auto) 15% (24-48) L Monocytes (%) (Auto) 8% (0-9) Eosinophils (%) (Auto) 4% (0-3) H Basophils (%) (Auto) 1% (0-3) Neutrophils # (Auto) 4.1x10^3uL (1.8-7.7) Lymphocytes # (Auto) 0.8x10^3/uL (1.0-4.8) L Monocytes # (Auto) 0.4x10^3/uL (0.0-1.1) Eosinophils # (Auto) 0.2x10^3/uL (0.0-0.7) Basophils # (Auto) 0.1x10^3/uL (0.0-0.2) Sodium Level 140mmol/L (136-145) Potassium Level 4.0mmol/L (3.5-5.1) Chloride Level 104mmol/L (98-107) Carbon Dioxide Level 27mmol/L (21-32) Anion Gap 9 (6-14) Blood Urea Nitrogen 11mg/dL (7-20) Creatinine 0.8mg/dL (0.6-1.0) Estimated GFR (Cockcroft-Gault) 76.9 BUN/Creatinine Ratio 14 (6-20) Glucose Level 113mg/dL (70-99) H Calcium Level 9.1mg/dL (8.5-10.1) Total Bilirubin 0.2mg/dL (0.2-1.0) Aspartate Amino Transferase (AST) 19U/L (15-37) Alanine Aminotransferase (ALT) 33U/L (14-59) Alkaline Phosphatase 115U/L (46-116) Total Protein 7.3g/dL (6.4-8.2) Albumin 3.5g/dL (3.4-5.0) Albumin/Globulin Ratio 0.9 (1.0-1.7) L Lipase 214U/L (73-393) Laboratory Tests 12/14/16 21:30 Laboratory Tests 12/14/16 21:30 EKG EKG [] Radiology/Procedures Radiology/Procedures [] Course & Med Decision Making Course & Med Decision Making Pertinent Labs and Imaging studies reviewed. (See chart for details) [] Dragon Disclaimer Dragon Disclaimer This electronic medical record was generated, in whole or in part, using a voice recognition dictation system. Departure Departure Impression: Primary Impression: Abdominal pain Additional Impression: Abdominal wall contusion Disposition: HOME, SELF-CARE Condition: STABLE Referrals: UNKNOWN PCP NAME (PCP) Patient Instructions: Abdominal Pain (Nonspecific), Contusion Scripts Tramadol Hcl (Ultram)50 Mg Tablet1 Tab PO Q6HRS #8 TAB Prov:HASMUKH REBOLLEDO MD 12/14/16 Problem Qualifiers HASMUKH REBOLLEDO MD Dec 14, 2016 22:07
== END 2016-12-14 22:43 | disposition home or self-care (01) ==
LOC: ER 17:21
DX: S30.1XXD Contusion of abdominal wall, subsequent encounter (principal); F17.200 Nicotine dependence, unspecified, uncomplicated; F41.9 Anxiety disorder, unspecified; F32.9 Major depressive disorder, single episode, unspecified; K21.9 Gastro-esophageal reflux disease without esophagitis; E78.00 Pure hypercholesterolemia, unspecified; G47.00 Insomnia, unspecified; Z90.710 Acquired absence of both cervix and uterus; Z90.49 Acquired absence of other specified parts of digestive tract; Z88.8 Allergy status to other drugs, medicaments and biological substances; Z88.1 Allergy status to other antibiotic agents; W07.XXXD Fall from chair, subsequent encounter
CPT/HCPCS: 36415; 80053; 83690; 85027; 96374; 96375; 99284; J1170; J2405

== ENCOUNTER 2016-12-20 14:42 | Emergency (ER) | payer BC ==
[~2016-12-20] VITALS: Ht 162.6 cm; Wt 108.9 kg
[~2016-12-20 14:42] MED LIST changes: +TRAM-29 PO
[2016-12-20] MEDS ORDERED: IV NORMAL SALINE 1000ML BAG 1,000 ML IV ONE (15:30)
[2016-12-20] MEDS ORDERED: ONDANSETRON PF 4 MG/2 ML VIAL. IV ONE (15:30)
[2016-12-20 15:57] LABS: BASO % 1 % (0-3); EOS % 3 % (0-3); HEMATOCRIT 31.2 % (36.0-47.0); LYMPH # 0.8 x10^3/uL (1.0-4.8); LYMPH % 14 % (24-48); MEAN CORPUSCULAR HEMOGLOBIN 25 pg (25-35); MEAN CORPUSCULAR HGB CONC 32 g/dL (31-37); MEAN CORPUSCULAR VOLUME 76 fL (79-100); MONO % 6 % (0-9); NEUT % 76 % (31-73); PLATELET COUNT 293 x10^3/uL (140-400); RED BLOOD COUNT 4.08 x10^6/uL (3.50-5.40); RED CELL DISTRIBUTION WIDTH 15.2 % (11.5-14.5)
[2016-12-20 16:00] VITALS: BP 146/109
--- NOTE | 2016-12-20 16:07 | RAD ---
PQRS Compliance Statement: One or more of the following individualized dose reduction techniques were utilized for this examination: 1. Automated exposure control 2. Adjustment of the mA and/or kV according to patient size 3. Use of iterative reconstruction technique CT of the abdomen and pelvis without contrast, 12/20/2016: History: Left-sided pain, nausea and vomiting Multidetector CT imaging was performed without oral or IV contrast as requested. The gallbladder is surgically absent. The unopacified liver shows no abnormality. No pancreatic abnormality is detected. The spleen is of normal size. The kidneys show no evidence of obstruction or mass. No urinary tract calculi are identified. The partially filled urinary bladder is unremarkable. There is mild aortoiliac calcific plaquing. No abdominal or pelvic adenopathy is seen. The uterus is surgically absent. The bowel loops are not dilated. There are sutures along the base of the cecum suggesting a previous appendectomy. No free fluid or free air is evident in the abdomen or pelvis. IMPRESSION: No acute abdominal or pelvic abnormality is detected.
[2016-12-20 16:09] LABS: CALCIUM 9.3 mg/dL (8.5-10.1); CREATININE 0.8 mg/dL (0.6-1.0); GFR 76.9; POTASSIUM 3.8 mmol/L (3.5-5.1)
[2016-12-20 16:15] LABS: ALBUMIN 3.8 g/dL (3.4-5.0); TOTAL BILIRUBIN 0.3 mg/dL (0.2-1.0); TOTAL PROTEIN 7.8 g/dL (6.4-8.2)
[2016-12-20] MEDS ORDERED: ONDA4TAB7 PO (16:36)
--- NOTE | 2016-12-20 16:37 | PHYS DOC ---
Past Medical History Past Medical History: Anemia, Anxiety, Constipation, Depression, GERD, High Cholesterol Additional Past Medical Histor: rectal ulcers endometrosis c.diff insomnia Past Surgical History: Appendectomy, Cholecystectomy, Hysterectomy Additional Past Surgical Histo: rectal sx Alcohol Use: Occasionally Drug Use: None Adult General Chief Complaint Chief Complaint: ABDOMINAL PAIN HPI HPI 46-year-old female presents with 24 hour history of nausea vomiting and epigastric pain. She states she's been unable to keep anything down now for 24 hours. She denies any fever chills sweats or hemoptysis. [] Review of Systems Review of Systems Constitutional: Denies fever or chills [] Eyes: Denies change in visual acuity, redness, or eye pain [] HENT: Denies nasal congestion or sore throat [] Respiratory: Denies cough or shortness of breath [] Cardiovascular: No additional information not addressed in HPI [] GI: Per history of present illness [] : Denies dysuria or hematuria [] Musculoskeletal: Denies back pain or joint pain [] Integument: Denies rash or skin lesions [] Neurologic: Denies headache, focal weakness or sensory changes [] Endocrine: Denies polyuria or polydipsia [] Current Medications Current Medications Current Medications Medications (Trade) Dose Ordered Sig/Ga Start Time Stop Time Status Last Admin Dose Admin Ondansetron HCl (Zofran) 8 mg 1X ONCE 12/20/16 15:30 12/20/16 15:31 DC 12/20/16 15:49 8 MG Sodium Chloride (Iv Sodium Chloride 0.9% 1000ml Bag) 1,000 ml @ 1,000 mls/hr 1X ONCE 12/20/16 15:30 12/20/16 16:29 DC 12/20/16 15:47 1,000 MLS/HR Allergies Allergies Allergies Coded Allergies Type Severity Reaction Last Updated Verified cephalexin Allergy Intermediate rash, red ears 08/14/16 No prochlorperazine Allergy Intermediate 11/24/16 Yes Physical Exam Physical Exam Constitutional: Well developed, well nourished, no acute distress, non-toxic appearance. [] HENT: Normocephalic, atraumatic, bilateral external ears normal, oropharynx moist, no oral exudates, nose normal. [] Eyes: PERRLA, EOMI, conjunctiva normal, no discharge. [] Neck: Normal range of motion, no tenderness, supple, no stridor. [] Cardiovascular:Heart rate regular rhythm, no murmur [] Lungs & Thorax: Bilateral breath sounds clear to auscultation [] Abdomen: Bowel sounds normal, soft, no tenderness, no masses, no pulsatile masses. [] Skin: Warm, dry, no erythema, no rash. [] Back: No tenderness, no CVA tenderness. [] Extremities: No tenderness, no cyanosis, no clubbing, ROM intact, no edema. [] Neurologic: Alert and oriented X 3, normal motor function, normal sensory function, no focal deficits noted. [] Psychologic: Anxious. [] Current Patient Data Vital Signs Vital Signs Date Time Temp Pulse Resp B/P Pulse Ox O2 Delivery O2 Flow Rate FiO2 12/20/16 15:00 101 18 148/111 96 Room Air 12/20/16 14:51 98.1 98.1 Lab Values Laboratory Tests Test 12/20/16 15:40 White Blood Count 6.0x10^3/uL (4.0-11.0) Red Blood Count 4.08x10^6/uL (3.50-5.40) Hemoglobin 10.0g/dL (12.0-15.5) L Hematocrit 31.2% (36.0-47.0) L Mean Corpuscular Volume 76fL (79-100) L Mean Corpuscular Hemoglobin 25pg (25-35) Mean Corpuscular Hemoglobin Concent 32g/dL (31-37) Red Cell Distribution Width 15.2% (11.5-14.5) H Platelet Count 293x10^3/uL (140-400) Neutrophils (%) (Auto) 76% (31-73) H Lymphocytes (%) (Auto) 14% (24-48) L Monocytes (%) (Auto) 6% (0-9) Eosinophils (%) (Auto) 3% (0-3) Basophils (%) (Auto) 1% (0-3) Neutrophils # (Auto) 4.6x10^3uL (1.8-7.7) Lymphocytes # (Auto) 0.8x10^3/uL (1.0-4.8) L Monocytes # (Auto) 0.4x10^3/uL (0.0-1.1) Eosinophils # (Auto) 0.2x10^3/uL (0.0-0.7) Basophils # (Auto) 0.0x10^3/uL (0.0-0.2) Sodium Level 142mmol/L (136-145) Potassium Level 3.8mmol/L (3.5-5.1) Chloride Level 104mmol/L (98-107) Carbon Dioxide Level 26mmol/L (21-32) Anion Gap 12 (6-14) Blood Urea Nitrogen 9mg/dL (7-20) Creatinine 0.8mg/dL (0.6-1.0) Estimated GFR (Cockcroft-Gault) 76.9 BUN/Creatinine Ratio 11 (6-20) Glucose Level 103mg/dL (70-99) H Calcium Level 9.3mg/dL (8.5-10.1) Total Bilirubin 0.3mg/dL (0.2-1.0) Aspartate Amino Transferase (AST) 23U/L (15-37) Alanine Aminotransferase (ALT) 25U/L (14-59) Alkaline Phosphatase 133U/L (46-116) H Total Protein 7.8g/dL (6.4-8.2) Albumin 3.8g/dL (3.4-5.0) Albumin/Globulin Ratio 1.0 (1.0-1.7) Lipase 107U/L (73-393) Laboratory Tests 12/20/16 15:40 Laboratory Tests 12/20/16 15:40 EKG EKG [] Radiology/Procedures Radiology/Procedures [] Impressions: PROCEDURE: ABDOMEN PELVIS WO CONTRAST PQRS Compliance Statement: One or more of the following individualized dose reduction techniques were utilized for this examination: 1. Automated exposure control 2. Adjustment of the mA and/or kV according to patient size 3. Use of iterative reconstruction technique CT of the abdomen and pelvis without contrast, 12/20/2016: History: Left-sided pain, nausea and vomiting Multidetector CT imaging was performed without oral or IV contrast as requested. The gallbladder is surgically absent. The unopacified liver shows no abnormality. No pancreatic abnormality is detected. The spleen is of normal size. The kidneys show no evidence of obstruction or mass. No urinary tract calculi are identified. The partially filled urinary bladder is unremarkable. There is mild aortoiliac calcific plaquing. No abdominal or pelvic adenopathy is seen. The uterus is surgically absent. The bowel loops are not dilated. There are sutures along the base of the cecum suggesting a previous appendectomy. No free fluid or free air is evident in the abdomen or pelvis. IMPRESSION: No acute abdominal or pelvic abnormality is detected. Course & Med Decision Making Course & Med Decision Making Pertinent Labs and Imaging studies reviewed. (See chart for details) [ED course: Evaluation reveals a 46-year-old female who is well-known to our department. She initially complained only of nausea and vomiting however she is now telling the nurse that she is in a lot of pain and wants something for the pain. Only told her nothing was ordered for pain she said she was not playing these games and wanted to go home.] Dragon Disclaimer Dragon Disclaimer This electronic medical record was generated, in whole or in part, using a voice recognition dictation system. Departure Departure Impression: Primary Impression: Nausea & vomiting Disposition: 01 HOME, SELF-CARE Condition: STABLE Referrals: UNKNOWN PCP NAME (PCP) Patient Instructions: Nausea and Vomiting Additional Instructions: Follow-up family doctor this week for recheck. Return him or department with any new or concerning symptoms Scripts Ondansetron Hcl (Zofran)4 Mg Tablet1 Tab PO Q8HRS PRN NAUSEA #20 TAB Prov:FLORIDALMA DESAI DO 12/20/16 Problem Qualifiers Primary Impression: Nausea & vomiting Vomiting type: unspecified Vomiting Intractability: unspecified Qualified Code: R11.2 - Nausea with vomiting, unspecified FLORIDALMA DESAI DO Dec 20, 2016 16:37
== END 2016-12-20 16:50 | disposition home or self-care (01) ==
LOC: ER 14:42
DX: R11.2 Nausea with vomiting, unspecified (principal); K21.9 Gastro-esophageal reflux disease without esophagitis; E78.00 Pure hypercholesterolemia, unspecified; Z90.49 Acquired absence of other specified parts of digestive tract; Z90.710 Acquired absence of both cervix and uterus; Z88.1 Allergy status to other antibiotic agents; Z88.8 Allergy status to other drugs, medicaments and biological substances
CPT/HCPCS: 36415; 74176; 80053; 83690; 85027; 96361; 96374; 99285; J2405; J7030

== ENCOUNTER 2016-12-30 09:33 | Emergency (ER) | payer OTHER, BC ==
[~2016-12-30 09:33] MED LIST changes: +ONDA4TAB7 PO
[2016-12-30] MEDS ORDERED: IV NORMAL SALINE 1000ML BAG 1,000 ML IV SCH (10:06)
[2016-12-30] MEDS ORDERED: MORPHINE SULFATE 4 MG/ML DISP.SYRIN. IV ONE (10:15)
[2016-12-30] MEDS ORDERED: ONDANSETRON PF 4 MG/2 ML VIAL. IV ONE (10:15)
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
[2016-12-30] MEDS ORDERED: IOHEXOL 300 MG/ML 75 ML VIAL IV ONE ×2 (10:30)
[2016-12-30] MEDS ORDERED: CONTRAST GIVEN MC PRN (10:30)
[2016-12-30 10:44] LABS: BASO # 0.1 x10^3/uL (0.0-0.2); BASO % 1 % (0-3); EOS % 3 % (0-3); HEMATOCRIT 30.5 % (36.0-47.0); HEMOGLOBIN 9.7 g/dL (12.0-15.5); LYMPH # 0.8 x10^3/uL (1.0-4.8); LYMPH % 14 % (24-48); MEAN CORPUSCULAR HEMOGLOBIN 24 pg (25-35); MEAN CORPUSCULAR HGB CONC 32 g/dL (31-37); MEAN CORPUSCULAR VOLUME 76 fL (79-100); MONO % 6 % (0-9); NEUT % 76 % (31-73); PLATELET COUNT 313 x10^3/uL (140-400); RED BLOOD COUNT 3.99 x10^6/uL (3.50-5.40); RED CELL DISTRIBUTION WIDTH 15.2 % (11.5-14.5); WHITE BLOOD COUNT 5.9 x10^3/uL (4.0-11.0)
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
[2016-12-30 10:57] LABS: CALCIUM 9.1 mg/dL (8.5-10.1); CREATININE 0.8 mg/dL (0.6-1.0); GFR 76.9
[2016-12-30 11:03] LABS: ALBUMIN 3.7 g/dL (3.4-5.0); ALBUMIN/GLOBULIN RATIO 0.9 (1.0-1.7); TOTAL BILIRUBIN 0.3 mg/dL (0.2-1.0); TOTAL PROTEIN 7.8 g/dL (6.4-8.2)
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
[2016-12-30 11:58] LABS: % EOS 3 % (0-5); PLT ESTIMATE ADEQUATE (ADEQUATE)
[2016-12-30 11:59] LABS: ANISOCYTOSIS SLIGHT; OVALOCYTES FEW; POLYCHROMASIA SLIGHT; TEAR DROP CELLS FEW
[2016-12-30 12:00] VITALS: BP 133/81
[2016-12-30] MEDS ORDERED: NAPR375T3 PO (12:01)
[2016-12-30] MEDS ORDERED: CYCL10TA2 PO (12:01)
[2016-12-30] MEDS ORDERED: NAPROXEN 500 MG TABLET PO ONE (12:15)
--- NOTE | 2016-12-30 19:37 | EKG ---
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
== END 2016-12-30 12:11 | disposition home or self-care (01) ==
LOC: ER 09:43
DX: M25.512 Pain in left shoulder (principal); R10.32 Left lower quadrant pain; E78.00 Pure hypercholesterolemia, unspecified; Z86.2 Personal history of diseases of the blood and blood-forming organs and certain disorders involving the immune mechanism; Z88.1 Allergy status to other antibiotic agents; Z88.8 Allergy status to other drugs, medicaments and biological substances; V49.9XXA Car occupant (driver) (passenger) injured in unspecified traffic accident, initial encounter; Y93.89 Activity, other specified; Y99.8 Other external cause status; Y92.89 Other specified places as the place of occurrence of the external cause
CPT/HCPCS: 36415; 73030; 74177; 80053; 85007; 85027; 93005; 96361; 96374; 96375; 99285; J2270; J2405; J7030; Q9967

== ENCOUNTER 2017-01-04 09:53 | Emergency (ER) | payer BC, OTHER ==
[~2017-01-04] VITALS: Ht 162.6 cm; Wt 113.4 kg
[~2017-01-04 09:53] MED LIST changes: +CYCL10TA2 PO; +NAPR375T3 PO
[2017-01-04 10:07] VITALS: BP 158/74
--- NOTE | 2017-01-04 10:39 | PHYS DOC ---
Past Medical History Past Medical History: Anemia, Anxiety, Constipation, Depression, GERD, High Cholesterol Additional Past Medical Histor: rectal ulcers endometrosis c.diff insomnia Past Surgical History: Appendectomy, Cholecystectomy, Hysterectomy Additional Past Surgical Histo: rectal sx Alcohol Use: Occasionally Drug Use: None Adult General Chief Complaint Chief Complaint: EARACHE/EAR PAIN [facility] HPI Patient is a 46 year old female presents emergency department stating that she developed headache and nasal area of her right side on . She states that it's a pressure type feeling. She states that it comes up to the right side of her head. She does state that she is having pain in her right ear area. She has been taken Tylenol and ibuprofen without relief. Patient denies any upper respiratory congestion. She denies any inner ear pain or discomfort on the right. She denies any light sensitivity. She denies any difficulty turning her head or moving her head. She denies any visual difficulty. Patient states that she has had no nausea or vomiting. Review of Systems Review of Systems Constitutional: Denies fever or chills [] Eyes: Denies change in visual acuity, redness, or eye pain [] HENT: Denies nasal congestion or sore throat [] Respiratory: Denies cough or shortness of breath [] Cardiovascular: No additional information not addressed in HPI [] GI: Denies abdominal pain, nausea, vomiting, bloody stools or diarrhea [] : Denies dysuria or hematuria [] Musculoskeletal: Denies back pain or joint pain [] Integument: Denies rash or skin lesions [] Neurologic: headache, denies focal weakness or sensory changes [] Current Medications Current Medications Current Medications Medications (Trade) Dose Ordered Sig/Ga Start Time Stop Time Status Last Admin Dose Admin Acetaminophen (Tylenol) 650 mg 1X ONCE 01/04/17 10:45 01/04/17 10:46 DC Pseudoephedrine HCl (Sudafed 12-Hour) 120 mg 1X ONCE 01/04/17 10:45 01/04/17 10:46 DC Allergies Allergies Allergies Coded Allergies Type Severity Reaction Last Updated Verified cephalexin Allergy Intermediate rash, red ears 08/14/16 No prochlorperazine Allergy Intermediate 11/24/16 Yes Physical Exam Physical Exam Constitutional: Well developed, well nourished, no acute distress, non-toxic appearance. [] HENT: Normocephalic, atraumatic, bilateral external ears normal, oropharynx moist, no oral exudates, nose normal. Bilateral tympanic membranes appear to be normal. Patient does have redness noted on the outer ear as well as at the temporal area on the right. Patient has no nuchal rigidity and noted. Throat with no erythematous no drainage noted. Eyes: PERRLA, EOMI, conjunctiva normal, no discharge. [] Neck: Normal range of motion, no tenderness, supple, no stridor. [] Cardiovascular:Heart rate regular rhythm, no murmur [] Lungs & Thorax: Bilateral breath sounds clear to auscultation [] Skin: Warm, dry, no erythema, no rash. [] Back: No tenderness Extremities: No tenderness, no cyanosis, no clubbing, ROM intact, no edema. [] Neurologic: Alert and oriented X 3, normal motor function, normal sensory function, no focal deficits noted. [] Psychologic: Affect normal, judgement normal, mood normal. [] Current Patient Data Vital Signs Vital Signs Date Time Temp Pulse Resp B/P Pulse Ox O2 Delivery O2 Flow Rate FiO2 01/04/17 10:07 97.9 94 18 98 Room Air 97.9 EKG EKG [] Radiology/Procedures Radiology/Procedures [] Course & Med Decision Making Course & Med Decision Making Pertinent Labs and Imaging studies reviewed. (See chart for details) Patient was provided with treatment regimen at this time in which she would be provided with Tylenol and Sudafed with a CT scan pending. 1115 CT here to take patient had a CAT scan. Patient is nowhere in the department. Patient has eloped. [] Dragon Disclaimer Dragon Disclaimer This electronic medical record was generated, in whole or in part, using a voice recognition dictation system. Departure Departure Impression: Primary Impression: Headache Additional Impression: Left against medical advice Disposition: AGAINST MEDICAL ADVICE Condition: STABLE Referrals: UNKNOWN PCP NAME (PCP) Problem Qualifiers CARLI CONTRERAS NP Jan 04, 2017 10:39
[2017-01-04] MEDS ORDERED: ACETAMINOPHEN 325 MG TABLET. PO ONE (10:45)
[2017-01-04] MEDS ORDERED: PSEUDOEPHEDRINE ER 120 MG TABLET.ER. PO ONE (10:45)
== END 2017-01-04 11:15 | disposition left against medical advice (07) ==
LOC: ER 09:53
DX: R51 Headache (principal); F41.9 Anxiety disorder, unspecified; E78.00 Pure hypercholesterolemia, unspecified; F32.9 Major depressive disorder, single episode, unspecified; G47.00 Insomnia, unspecified; Z88.1 Allergy status to other antibiotic agents; Z88.8 Allergy status to other drugs, medicaments and biological substances
CPT/HCPCS: 99281

== ENCOUNTER 2017-01-09 10:13 | Emergency (ER) | payer BC ==
[~2017-01-09] VITALS: Ht 162.6 cm; Wt 113.4 kg
[2017-01-09 10:15] VITALS: BP 145/101
--- NOTE | 2017-01-09 11:17 | PHYS DOC ---
Past Medical History Past Medical History: Anemia, Anxiety, Constipation, Depression, GERD, High Cholesterol, Other Additional Past Medical Histor: rectal ulcers,endometrosis,c.diff,insomnia Past Surgical History: Appendectomy, Cholecystectomy, Hysterectomy Additional Past Surgical Histo: rectal sx Additional Information: 0.5 PPD Alcohol Use: Occasionally Drug Use: None Adult General Chief Complaint Chief Complaint: RECTAL BLEED HPI HPI Patient is a 46 year old female who presents with complaint of rectal bleeding and lower abdominal pain. The patient has had multiple visits to the emergency department for similar complaints. Patient confirms that her symptoms are consistent with previous episodes. Patient has history of rectal ulcers and recurrent rectal bleeding and pain. Patient states her symptoms started earlier this morning. Patient rates pain as 10 out of 10. Patient states that she has sulfasalazine and hydrocortisone suppositories at home which she uses for acute episodes but has not taken these today. Patient denies severe blood loss. Patient has not had any associated fevers, lightheadedness, dizziness, shortness of breath, or chest pain. Patient states that she came to the emergency department because she wanted to be treated with injection pain medication. Review of Systems Review of Systems Constitutional: Denies fever or chills [] Eyes: Denies change in visual acuity, redness, or eye pain [] HENT: Denies nasal congestion or sore throat [] Respiratory: Denies cough or shortness of breath [] Cardiovascular: Denies chest pain or edema [] GI: Abdominal pain, rectal bleeding, denies nausea or vomiting [] : Denies dysuria or hematuria [] Musculoskeletal: Denies back pain or joint pain [] Integument: Denies rash or skin lesions [] Neurologic: Denies headache, focal weakness or sensory changes [] Allergies Allergies Allergies Coded Allergies Type Severity Reaction Last Updated Verified cephalexin Allergy Intermediate rash, red ears 08/14/16 No prochlorperazine Allergy Intermediate 11/24/16 Yes Physical Exam Physical Exam Constitutional: Alert, afebrile, no acute distress. [] HENT: Normocephalic, atraumatic, bilateral external ears normal, oropharynx moist, no oral exudates, nose normal. [] Eyes: PERRLA, EOMI, conjunctiva normal, no discharge. [] Neck: Normal range of motion, no tenderness, supple, no stridor. [] Cardiovascular:Heart rate regular rhythm, no murmur [] Lungs & Thorax: Bilateral breath sounds clear to auscultation [] Abdomen: Bowel sounds normal, soft, no tenderness, no masses, no pulsatile masses, patient refused rectal exam. [] Skin: Warm, dry, no erythema, no rash. [] Back: No tenderness, no CVA tenderness. [] Extremities: No tenderness, no cyanosis, no clubbing, ROM intact, no edema. [] Neurologic: Alert and oriented X 3, normal motor function, normal sensory function, no focal deficits noted. [] Current Patient Data Vital Signs Vital Signs Date Time Temp Pulse Resp B/P Pulse Ox O2 Delivery O2 Flow Rate FiO2 01/09/17 10:15 98.2 106 18 145/101 98 98.2 EKG EKG Not performed [] Radiology/Procedures Radiology/Procedures Not performed [] Course & Med Decision Making Course & Med Decision Making Pertinent Labs and Imaging studies reviewed. (See chart for details) Patient's vital signs are stable and patient does not appear toxic. I explained to the patient that injection pain medication is not first-line treatment for recurrent abdominal pain and rectal bleeding. I did offer the patient oral pain medication, however the patient states that she refused stating that she had this at home. I offered to do a rectal exam to check the extent of bleeding, however the patient refused stating that she did not have any more bleeding "than usual." I also offered to draw blood work to ensure that patient's hemoglobin was stable compared to baseline however she refused. She stated that she did not want any further treatment in the emergency department if we were not going to give any IV or IM narcotic pain medication. Despite offers for other modes of treatment these were declined. The patient was deemed stable for discharge and her paperwork was finished, however the patient left her room before she could get her discharge paperwork. Dragon Disclaimer Dragon Disclaimer This electronic medical record was generated, in whole or in part, using a voice recognition dictation system. Departure Departure Impression: Primary Impression: Rectal bleeding Disposition: HOME, SELF-CARE Condition: STABLE Referrals: UNKNOWN PCP NAME (PCP) Patient Instructions: Rectal Bleeding Additional Instructions: Follow-up with your primary doctor in the next 2-3 days. Return to emergency department for any worsening symptoms. GALE CABALLERO MD Jan 09, 2017 11:17
== END 2017-01-09 11:24 | disposition home or self-care (01) ==
LOC: ER 10:13
DX: K62.5 Hemorrhage of anus and rectum (principal); K21.9 Gastro-esophageal reflux disease without esophagitis; E78.00 Pure hypercholesterolemia, unspecified; G47.00 Insomnia, unspecified; F17.200 Nicotine dependence, unspecified, uncomplicated; Z90.49 Acquired absence of other specified parts of digestive tract; Z90.710 Acquired absence of both cervix and uterus; Z88.1 Allergy status to other antibiotic agents; Z88.8 Allergy status to other drugs, medicaments and biological substances
CPT/HCPCS: 99281

== ENCOUNTER 2017-01-28 17:57 | Emergency (ER) | payer BC ==
[~2017-01-28] VITALS: Ht 162.6 cm; Wt 104.3 kg
[2017-01-28] MEDS ORDERED: ONDANSETRON PF 4 MG/2 ML VIAL. ONE (19:42)
[2017-01-28] MEDS ORDERED: ONDANSETRON PF 4 MG/2 ML VIAL. IV STA (19:43)
[2017-01-28] MEDS ORDERED: IV NORMAL SALINE 1000ML BAG 1,000 ML IV ONE (19:45)
--- NOTE | 2017-01-28 19:58 | PHYS DOC ---
Past Medical History Past Medical History: Anemia, Anxiety, Constipation, Depression, GERD, High Cholesterol, Other Additional Past Medical Histor: rectal ulcers,endometrosis,c.diff,insomnia Past Surgical History: Appendectomy, Cholecystectomy, Hysterectomy Additional Past Surgical Histo: rectal sx Alcohol Use: Occasionally Drug Use: None Adult General Chief Complaint Chief Complaint: ABDOMINAL PAIN HPI HPI 46 Y.O F with chronic abd pain and rectal ulcerations that presents to the ED with similiar symptoms today. She has LLQ abd pain and it is moderate nonradiating. She denies having large amounts of bloody stools. She has tried her pain meds at home without any relief. duration intermittent. She also has been having watery stools. 6 times today. onset 1000. Review of systems is negative for vomiting fevers chills chest pain or shortness of breath. All other review of systems is negative unless otherwise noted in history of present illness. Review of Systems Review of Systems SEE ABOVE. Current Medications Current Medications Current Medications Medications (Trade) Dose Ordered Sig/Ga Start Time Stop Time Status Last Admin Dose Admin Morphine Sulfate (Morphine Ir) 15 mg 1X ONCE 01/28/17 20:30 01/28/17 20:31 DC 01/28/17 20:22 15 MG Ondansetron HCl (Zofran) 4 mg STK-MED ONCE 01/28/17 19:42 01/28/17 19:43 DC Ondansetron HCl 4 mg 4 mg 1X STAT 01/28/17 19:43 01/28/17 19:45 DC 01/28/17 19:50 4 MG Sodium Chloride (Iv Sodium Chloride 0.9% 1000ml Bag) 1,000 ml @ 1,000 mls/hr 1X ONCE 01/28/17 19:45 01/28/17 20:44 DC 01/28/17 19:49 1,000 MLS/HR Allergies Allergies Allergies Coded Allergies Type Severity Reaction Last Updated Verified cephalexin Allergy Intermediate rash, red ears 08/14/16 No prochlorperazine Allergy Intermediate 11/24/16 Yes Physical Exam Physical Exam Constitutional: Well developed, well nourished, no acute distress, non-toxic appearance. HENT: Normocephalic, atraumatic, bilateral external ears normal, oropharynx moist, no oral exudates, nose normal. Eyes: PERRLA, EOMI, conjunctiva normal, no discharge. Neck: Normal range of motion, no tenderness, supple, no stridor. Cardiovascular:Heart rate regular rhythm, no murmur Lungs & Thorax: Bilateral breath sounds clear to auscultation [] Abdomen: Soft nontender abdomen without rebound tenderness or guarding present. Negative McBurneys point. Negative Pappas sign. No ecchymosis present. Skin: Warm, dry, no erythema, no rash. [] Back: No tenderness, no CVA tenderness. Extremities: No tenderness, no cyanosis, no clubbing, ROM intact, no edema. Neurologic: Alert and oriented X 3, normal motor function, normal sensory function, no focal deficits noted. Psychologic: Affect normal, judgement normal, mood normal. [] Current Patient Data Vital Signs Vital Signs Date Time Temp Pulse Resp B/P Pulse Ox O2 Delivery O2 Flow Rate FiO2 01/28/17 20:22 18 96 Room Air 01/28/17 19:52 94 124/73 Lab Values Laboratory Tests Test 01/28/17 19:35 White Blood Count 5.2x10^3/uL (4.0-11.0) Red Blood Count 4.20x10^6/uL (3.50-5.40) Hemoglobin 10.9g/dL (12.0-15.5) L Hematocrit 34.3% (36.0-47.0) L Mean Corpuscular Volume 82fL (79-100) Mean Corpuscular Hemoglobin 26pg (25-35) Mean Corpuscular Hemoglobin Concent 32g/dL (31-37) Red Cell Distribution Width 21.9% (11.5-14.5) H Platelet Count 250x10^3/uL (140-400) Neutrophils (%) (Auto) 69% (31-73) Lymphocytes (%) (Auto) 16% (24-48) L Monocytes (%) (Auto) 8% (0-9) Eosinophils (%) (Auto) 6% (0-3) H Basophils (%) (Auto) 1% (0-3) Neutrophils # (Auto) 3.6x10^3uL (1.8-7.7) Lymphocytes # (Auto) 0.8x10^3/uL (1.0-4.8) L Monocytes # (Auto) 0.4x10^3/uL (0.0-1.1) Eosinophils # (Auto) 0.3x10^3/uL (0.0-0.7) Basophils # (Auto) 0.0x10^3/uL (0.0-0.2) Platelet Estimate Adequate (ADEQUATE) Anisocytosis Mod Tear Drop Cells Few Ovalocytes Few Urine Collection Type Unknown Urine Color Yellow Urine Clarity Clear Urine pH 5.5 Urine Specific [place] >=1.030 Urine Protein Negativemg/dL (NEG-TRACE) Urine Glucose (UA) Negativemg/dL (NEG) Urine Ketones (Stick) Negativemg/dL (NEG) Urine Blood Negative (NEG) Urine Nitrite Negative (NEG) Urine Bilirubin Negative (NEG) Urine Urobilinogen Dipstick 0.2mg/dL (0.2 mg/dL) Urine Leukocyte Esterase Negative (NEG) Urine RBC 0/HPF (0-2) Urine WBC 1-4/HPF (0-4) Urine Squamous Epithelial Cells Few/LPF Urine Bacteria 0/HPF (0-FEW) Urine Mucus Slight/LPF Sodium Level 141mmol/L (136-145) Potassium Level 3.6mmol/L (3.5-5.1) Chloride Level 102mmol/L (98-107) Carbon Dioxide Level 30mmol/L (21-32) Anion Gap 9 (6-14) Blood Urea Nitrogen 8mg/dL (7-20) Creatinine 0.9mg/dL (0.6-1.0) Estimated GFR (Cockcroft-Gault) 67.1 Glucose Level 108mg/dL (70-99) H Calcium Level 9.2mg/dL (8.5-10.1) Total Bilirubin 0.3mg/dL (0.2-1.0) Direct Bilirubin 0.1mg/dL (0.0-0.2) Aspartate Amino Transferase (AST) 28U/L (15-37) Alanine Aminotransferase (ALT) 48U/L (14-59) Alkaline Phosphatase 126U/L (46-116) H Total Protein 7.9g/dL (6.4-8.2) Albumin 3.9g/dL (3.4-5.0) Lipase 90U/L (73-393) Laboratory Tests 01/28/17 19:35 Laboratory Tests 01/28/17 19:35 EKG EKG [] Radiology/Procedures Radiology/Procedures [] Course & Med Decision Making Course & Med Decision Making Pertinent Labs and Imaging studies reviewed. (See chart for details) [] 46-year-old female presenting to the emergency department today with left lower quadrant abdominal pain similar to her many previous episodes for which she is seen here approximately every 2 weeks. She has shown evidence of opioid abuse syndrome. Vital signs showed normal heart rate and were unremarkable. Pertinent physical exam findings showed a nontender abdomen. After the patient ondansetron and saline was administered in the emergency department she was feeling better. Blood work was ordered, unremarkable. She was in discharged home to follow up with her PCP over the next 2-3 days if her symptoms continued. Dragon Disclaimer Dragon Disclaimer This electronic medical record was generated, in whole or in part, using a voice recognition dictation system. Departure Departure Impression: Primary Impression: Abdominal pain Additional Impression: Drug-seeking behavior Disposition: HOME, SELF-CARE Condition: STABLE Referrals: NO PCP (PCP) SHUKRI PLASCENCIA MD Patient Instructions: Abdominal Pain Additional Instructions: Thank you for allowing us to participate in your care today. Followup with your primary care physician in 3 days if your symptoms do not improve. If you do not have a primary care provider you can ask for a list of our primary care providers. Return to the emergency department you have any new or concerning findings. This should be evaluated by the primary care physician and any necessary consulting services for continued management within a few days after discharge. Return to emergency room if you have any new or concerning symptoms including but not limited to fever, chills, nausea, vomiting, intractable pain, any new rashes, chest pain, shortness of air, uncontrolled bleeding, difficulty breathing, and/or vision loss. You may have been prescribed medication that can change in your level of thinking and ability to operate machinery. These medications include hydrocodone and Ativan. Also, Benadryl has been known to do this as well. Be sure to check with your pharmacist and ask if the medications you've prescribed can affect your level of consciousness. I recommend not operating heavy machinery or driving while on medication such as these. Scripts Morphine Sulfate 15 Mg Tablet1 Tab PO PRN Q6-8HRS PRN SEVERE PAIN #8 TAB Prov:KIARA PEREZ MD 01/28/17 Problem Qualifiers Primary Impression: Abdominal pain Abdominal location: left lower quadrant Qualified Code: R10.32 - Left lower quadrant pain KIRAA PEREZ MD Jan 28, 2017 19:58
[2017-01-28 20:08] LABS: BASO % 1 % (0-3); EOS % 6 % (0-3); HEMATOCRIT 34.3 % (36.0-47.0); HEMOGLOBIN 10.9 g/dL (12.0-15.5); LYMPH # 0.8 x10^3/uL (1.0-4.8); LYMPH % 16 % (24-48); MEAN CORPUSCULAR HEMOGLOBIN 26 pg (25-35); MEAN CORPUSCULAR HGB CONC 32 g/dL (31-37); MEAN CORPUSCULAR VOLUME 82 fL (79-100); MONO % 8 % (0-9); NEUT % 69 % (31-73); PLATELET COUNT 250 x10^3/uL (140-400); RED CELL DISTRIBUTION WIDTH 21.9 % (11.5-14.5); WHITE BLOOD COUNT 5.2 x10^3/uL (4.0-11.0)
[2017-01-28 20:12] LABS: BILIRUBIN,URINE NEGATIVE (NEG); GLUCOSE,URINE NEGATIVE (NEG); NITRITE,URINE NEGATIVE (NEG); PH,URINE 5.5; PROTEIN,URINE NEGATIVE (NEG-TRACE); UROBILINOGEN,URINE 0.2 mg/dL (0.2 mg/dL)
[2017-01-28 20:22] LABS: CALCIUM 9.2 mg/dL (8.5-10.1); CREATININE 0.9 mg/dL (0.6-1.0); GFR 67.1; POTASSIUM 3.6 mmol/L (3.5-5.1)
[2017-01-28 20:24] LABS: BACTERIA,URINE 0 /HPF (0-FEW); RBC,URINE 0 /HPF (0-2); SQUAMOUS EPITHELIAL CELL,UR FEW /LPF
[2017-01-28 20:27] LABS: ALBUMIN 3.9 g/dL (3.4-5.0); DIRECT BILIRUBIN 0.1 mg/dL (0.0-0.2); TOTAL BILIRUBIN 0.3 mg/dL (0.2-1.0); TOTAL PROTEIN 7.9 g/dL (6.4-8.2)
[2017-01-28] MEDS ORDERED: MORPHINE IR 15 MG TABLET PO ONE (20:30)
[2017-01-28 21:02] LABS: ANISOCYTOSIS MOD; OVALOCYTES FEW; PLT ESTIMATE ADEQUATE (ADEQUATE); TEAR DROP CELLS FEW
[2017-01-28] MEDS ORDERED: MORP15TA PO (21:14)
[2017-01-28 21:30] VITALS: BP 116/81
== END 2017-01-28 22:38 | disposition home or self-care (01) ==
LOC: ER 17:57
DX: R10.32 Left lower quadrant pain (principal); G89.29 Other chronic pain; F41.9 Anxiety disorder, unspecified; F32.9 Major depressive disorder, single episode, unspecified; K21.9 Gastro-esophageal reflux disease without esophagitis; E78.00 Pure hypercholesterolemia, unspecified; G47.00 Insomnia, unspecified; Z90.49 Acquired absence of other specified parts of digestive tract; Z90.710 Acquired absence of both cervix and uterus; Z88.8 Allergy status to other drugs, medicaments and biological substances; Z88.1 Allergy status to other antibiotic agents; Z76.5 Malingerer [conscious simulation]
CPT/HCPCS: 36415; 80048; 80076; 81001; 83690; 85007; 85027; 96361; 96374; 99284; J2405; J7030

== ENCOUNTER 2017-01-30 16:43 | Emergency (ER) | payer BC ==
[~2017-01-30] VITALS: Ht 162.6 cm; Wt 99.8 kg
[~2017-01-30 16:43] MED LIST changes: +MORP15TA PO
[2017-01-30 16:59] VITALS: BP 161/95
--- NOTE | 2017-01-30 18:00 | ED.ADGEN ---
Past Medical History Past Medical History: Anemia, Anxiety, Constipation, Depression, GERD, High Cholesterol, Other Additional Past Medical Histor: rectal ulcers,endometrosis,c.diff,insomnia Past Surgical History: Appendectomy, Cholecystectomy, Hysterectomy, Other Additional Past Surgical Histo: rectal sx Additional Information: 0.5 PPD OR LESS Alcohol Use: Occasionally Drug Use: None Adult General Chief Complaint Chief Complaint: PAIN CONTROL HPI HPI Patient is a 46 year old female presents emergency department complaining of left-sided abdominal pain. Patient is a long history of chronic abdominal pain and rectal bleeding. She reports that she has had some nausea with her pain today. Patient was seen here and evaluated for the exact same thing 2 days ago. She states is been no change. She was prescribed by mouth morphine at that time. She did not follow with her primary care doctor but tells me she has an appointment next week. She denies any fever or chills. Denies any diarrhea or dysuria along with any vaginal bleeding or discharge. Review of Systems Review of Systems Constitutional: Denies fever or chills. [] Eyes: Denies change in visual acuity. [] HENT: Denies nasal congestion or sore throat. [] Respiratory: Denies cough or shortness of breath. [] Cardiovascular: Denies chest pain or edema. [] GI: Denies abdominal pain, nausea, vomiting, bloody stools or diarrhea. [] : Denies dysuria. [] Musculoskeletal: Denies back pain or joint pain. [] Integument: Denies rash. [] Neurologic: Denies headache, focal weakness or sensory changes. [] Endocrine: Denies polyuria or polydipsia. [] Lymphatic: Denies swollen glands. [] Psychiatric: Denies depression or anxiety. [] Allergies Allergies Allergies Coded Allergies Type Severity Reaction Last Updated Verified cephalexin Allergy Intermediate rash, red ears 08/14/16 No prochlorperazine Allergy Intermediate 11/24/16 Yes Physical Exam Physical Exam Constitutional: Well developed, well nourished, no acute distress, non-toxic appearance. [] HENT: Normocephalic, atraumatic, bilateral external ears normal, oropharynx moist, no oral exudates, nose normal. [] Eyes: PERRLA, EOMI, conjunctiva normal, no discharge. [] Neck: Normal range of motion, no tenderness, supple, no stridor. [] Cardiovascular:Heart rate regular rhythm, no murmur [] Lungs & Thorax: Bilateral breath sounds clear to auscultation [] Abdomen: Bowel sounds normal, soft, no tenderness, no masses, no pulsatile masses. [] Skin: Warm, dry, no erythema, no rash. [] Back: No tenderness, no CVA tenderness. [] Extremities: No tenderness, no cyanosis, no clubbing, ROM intact, no edema. [] Neurologic: Alert and oriented X 3, normal motor function, normal sensory function, no focal deficits noted. [] Psychologic: Affect normal, judgement normal, mood normal. [] Current Patient Data Vital Signs Vital Signs Date Time Temp Pulse Resp B/P Pulse Ox O2 Delivery O2 Flow Rate FiO2 01/30/17 16:59 99.3 119 22 161/95 96 Room Air 99.3 EKG EKG [] Radiology/Procedures Radiology/Procedures [] Course & Med Decision Making Course & Med Decision Making Pertinent Labs and Imaging studies reviewed. (See chart for details) When I informed the patient that I would offer her some by mouth Zofran, x-ray, and lab work but would not be prescribing her any narcotic pain medications the patient became upset and demanded to leave AGAINST MEDICAL ADVICE. I did encourage her to come back to emergency department if she develops any new or worsening symptoms. [] Dragon Disclaimer Dragon Disclaimer This electronic medical record was generated, in whole or in part, using a voice recognition dictation system. MEHREEN PETERSON MD Jan 30, 2017 18:00
== END 2017-01-30 17:59 | disposition left against medical advice (07) ==
LOC: ER 16:43
DX: G89.29 Other chronic pain (principal); R10.9 Unspecified abdominal pain; K62.5 Hemorrhage of anus and rectum; E78.00 Pure hypercholesterolemia, unspecified; K21.9 Gastro-esophageal reflux disease without esophagitis; G47.00 Insomnia, unspecified; F17.200 Nicotine dependence, unspecified, uncomplicated; Z90.49 Acquired absence of other specified parts of digestive tract; Z90.710 Acquired absence of both cervix and uterus; Z88.1 Allergy status to other antibiotic agents; Z88.8 Allergy status to other drugs, medicaments and biological substances
CPT/HCPCS: 99281

== ENCOUNTER 2017-02-05 23:09 | Emergency (ER) | payer BC ==
[~2017-02-05] VITALS: Ht 162.6 cm; Wt 99.8 kg
[2017-02-06 01:01] LABS: BILIRUBIN,URINE NEGATIVE (NEG); GLUCOSE,URINE NEGATIVE (NEG); NITRITE,URINE NEGATIVE (NEG); PROTEIN,URINE NEGATIVE (NEG-TRACE); UROBILINOGEN,URINE 0.2 mg/dL (0.2 mg/dL)
[2017-02-06 01:06] LABS: BACTERIA,URINE 0 /HPF (0-FEW); RBC,URINE OCC /HPF (0-2); SQUAMOUS EPITHELIAL CELL,UR MOD /LPF
[2017-02-06] MEDS ORDERED: IV NORMAL SALINE 1000ML BAG 1,000 ML IV SCH (01:15)
[2017-02-06] MEDS ORDERED: ONDANSETRON PF 4 MG/2 ML VIAL. IV ONE (01:15)
[2017-02-06] MEDS ORDERED: PANTOPRAZOLE IV PUSH 40 MG VIAL. IVP ONE (01:15)
[2017-02-06] MEDS ORDERED: LIDO:MAALOX:DONNATAL 1:1:1 15 ML SINGLE DOSE SWSW ONE (01:15)
[2017-02-06] MEDS ORDERED: HYDROMORPHONE 2 MG/ML VIAL. IV ONE (01:15)
[2017-02-06 01:23] LABS: BASO % 1 % (0-3); EOS % 6 % (0-3); HEMATOCRIT 32.3 % (36.0-47.0); HEMOGLOBIN 10.3 g/dL (12.0-15.5); LYMPH # 0.7 x10^3/uL (1.0-4.8); LYMPH % 14 % (24-48); MEAN CORPUSCULAR HEMOGLOBIN 26 pg (25-35); MEAN CORPUSCULAR HGB CONC 32 g/dL (31-37); MEAN CORPUSCULAR VOLUME 82 fL (79-100); MONO % 8 % (0-9); NEUT % 72 % (31-73); PLATELET COUNT 240 x10^3/uL (140-400); RED BLOOD COUNT 3.95 x10^6/uL (3.50-5.40); RED CELL DISTRIBUTION WIDTH 21.2 % (11.5-14.5); WHITE BLOOD COUNT 4.9 x10^3/uL (4.0-11.0)
[2017-02-06 01:35] LABS: CALCIUM 8.6 mg/dL (8.5-10.1); CREATININE 0.7 mg/dL (0.6-1.0); GFR 89.7; POTASSIUM 3.7 mmol/L (3.5-5.1)
[2017-02-06 01:40] LABS: ALBUMIN 3.5 g/dL (3.4-5.0); ALBUMIN/GLOBULIN RATIO 1.1 (1.0-1.7); TOTAL BILIRUBIN 0.2 mg/dL (0.2-1.0); TOTAL PROTEIN 6.7 g/dL (6.4-8.2)
--- NOTE | 2017-02-06 01:59 | PHYS DOC ---
Past Medical History Past Medical History: Anemia, Anxiety, Constipation, Depression, GERD, High Cholesterol, Other Additional Past Medical Histor: rectal ulcers,endometrosis,c.diff,insomnia Past Surgical History: Appendectomy, Cholecystectomy, Hysterectomy, Other Additional Past Surgical Histo: rectal sx Alcohol Use: Occasionally Drug Use: None Adult General Chief Complaint Chief Complaint: ABDOMINAL PAIN HPI HPI Patient is a 46 year old female with history significant for chronic abdominal pain presents here today complaining of left upper quadrant pain that started this afternoon. Patient reports that she was with her daughter when the pain started. Patient denies any fevers shakes chills. Patient reports she been nauseous with no vomiting or diarrhea. Patient has any chest pain or shortness of breath. Patient has any melena or bright red blood per rectum. Patient has any dysuria frequency or urgency. Patient has hematemesis. Patient reports the pain is sharp in nature and waning to her left upper quadrant and back. Patient reports she's had her gallbladder taken out hysterectomy and appendectomy. Patient has any history of hypertension diabetes liver longer kidney problems. Patient portion to have an ulcer as a child. Patient is allergic to Keflex and Compazine. Patient's physical exam is relatively unremarkable except for some tenderness to palpation to her left upper quadrant. Patient is normal active bowel sounds. Patient no rebound or guarding. Patient has no psoas or obturator signs. Patient present with any signs or symptoms of be consistent with acute surgical abdomen. A/P #1 Calvin pain patient's hospital course without significant. Patient's workup is unremarkable. Patient has normal labs. Patient has a normal instructed series. Patient's abdominal exam is not consistent with an acute surgical abdomen and does not require any further inpatient or ER evaluation. Patient was instructed to follow-up with her primary care physician to follow- up with a GI specialist for further evaluation of her discomfort. Review of Systems Review of Systems Constitutional: Denies fever or chills [] Eyes: Denies change in visual acuity, redness, or eye pain [] HENT: Denies nasal congestion or sore throat [] All other review systems are negative except as documented in the history of present illness portion. Current Medications Current Medications Current Medications Medications (Trade) Dose Ordered Sig/Ga Start Time Stop Time Status Last Admin Dose Admin Hydromorphone HCl (Dilaudid) 0.5 mg 1X ONCE 02/06/17 01:15 02/06/17 01:16 DC 02/06/17 01:07 0.5 MG Multi-Ingredient Mouthwash/Gargle 15 ml 15 ml 1X ONCE 02/06/17 01:15 02/06/17 01:16 DC 02/06/17 01:09 15 ML Ondansetron HCl (Zofran) 4 mg 1X ONCE 02/06/17 01:15 02/06/17 01:16 DC 02/06/17 01:04 4 MG Pantoprazole Sodium (Protonix Vial) 40 mg 1X ONCE 02/06/17 01:15 02/06/17 01:16 DC 02/06/17 01:11 40 MG Sodium Chloride (Iv Sodium Chloride 0.9% 1000ml Bag) 1,000 ml @ 1,000 mls/hr Q1H 02/06/17 01:15 02/06/17 02:14 02/06/17 01:01 1,000 MLS/HR Allergies Allergies Allergies Coded Allergies Type Severity Reaction Last Updated Verified cephalexin Allergy Intermediate rash, red ears 08/14/16 No prochlorperazine Allergy Intermediate 11/24/16 Yes Physical Exam Physical Exam Constitutional: Well developed, well nourished, no acute distress, non-toxic appearance. [] HENT: Normocephalic, atraumatic, bilateral external ears normal, oropharynx moist, no oral exudates, nose normal. [] Eyes: PERRLA, EOMI, conjunctiva normal, no discharge. [] Neck: Normal range of motion, no tenderness, supple, no stridor. [] Cardiovascular:Heart rate regular rhythm, no murmur [] Lungs & Thorax: Bilateral breath sounds clear to auscultation [] Abdomen: Bowel sounds normal, soft, , no masses, no pulsatile masses. [] Skin: Warm, dry, no erythema, no rash. [] Back: No tenderness, no CVA tenderness. [] Extremities: No tenderness, no cyanosis, no clubbing, ROM intact, no edema. [] Neurologic: Alert and oriented X 3, normal motor function, normal sensory function, no focal deficits noted. [] Psychologic: Affect normal, judgement normal, mood normal. [] Current Patient Data Vital Signs Vital Signs Date Time Temp Pulse Resp B/P Pulse Ox O2 Delivery O2 Flow Rate FiO2 02/06/17 01:07 18 02/05/17 23:17 98.9 88 154/98 98 Room Air 98.9 Lab Values Laboratory Tests Test 02/05/17 22:59 02/06/17 00:01 02/06/17 01:10 POC Urine HCG, Qualitative Hcg negative (Negative) Urine Collection Type Unknown Urine Color Yellow Urine Clarity Clear Urine pH 6.0 Urine Specific [place] 1.020 Urine Protein Negativemg/dL (NEG-TRACE) Urine Glucose (UA) Negativemg/dL (NEG) Urine Ketones (Stick) Negativemg/dL (NEG) Urine Blood Negative (NEG) Urine Nitrite Negative (NEG) Urine Bilirubin Negative (NEG) Urine Urobilinogen Dipstick 0.2mg/dL (0.2 mg/dL) Urine Leukocyte Esterase Negative (NEG) Urine RBC Occ/HPF (0-2) Urine WBC 1-4/HPF (0-4) Urine Squamous Epithelial Cells Mod/LPF Urine Bacteria 0/HPF (0-FEW) Urine Mucus Mod/LPF White Blood Count 4.9x10^3/uL (4.0-11.0) Red Blood Count 3.95x10^6/uL (3.50-5.40) Hemoglobin 10.3g/dL (12.0-15.5) L Hematocrit 32.3% (36.0-47.0) L Mean Corpuscular Volume 82fL (79-100) Mean Corpuscular Hemoglobin 26pg (25-35) Mean Corpuscular Hemoglobin Concent 32g/dL (31-37) Red Cell Distribution Width 21.2% (11.5-14.5) H Platelet Count 240x10^3/uL (140-400) Neutrophils (%) (Auto) 72% (31-73) Lymphocytes (%) (Auto) 14% (24-48) L Monocytes (%) (Auto) 8% (0-9) Eosinophils (%) (Auto) 6% (0-3) H Basophils (%) (Auto) 1% (0-3) Neutrophils # (Auto) 3.5x10^3uL (1.8-7.7) Lymphocytes # (Auto) 0.7x10^3/uL (1.0-4.8) L Monocytes # (Auto) 0.4x10^3/uL (0.0-1.1) Eosinophils # (Auto) 0.3x10^3/uL (0.0-0.7) Basophils # (Auto) 0.0x10^3/uL (0.0-0.2) Platelet Estimate Pending Sodium Level 143mmol/L (136-145) Potassium Level 3.7mmol/L (3.5-5.1) Chloride Level 104mmol/L (98-107) Carbon Dioxide Level 28mmol/L (21-32) Anion Gap 11 (6-14) Blood Urea Nitrogen 14mg/dL (7-20) Creatinine 0.7mg/dL (0.6-1.0) Estimated GFR (Cockcroft-Gault) 89.7 BUN/Creatinine Ratio 20 (6-20) Glucose Level 108mg/dL (70-99) H Calcium Level 8.6mg/dL (8.5-10.1) Total Bilirubin 0.2mg/dL (0.2-1.0) Aspartate Amino Transferase (AST) 20U/L (15-37) Alanine Aminotransferase (ALT) 36U/L (14-59) Alkaline Phosphatase 105U/L (46-116) Troponin I Quantitative < 0.017ng/mL (0.000-0.055) Total Protein 6.7g/dL (6.4-8.2) Albumin 3.5g/dL (3.4-5.0) Albumin/Globulin Ratio 1.1 (1.0-1.7) Lipase 120U/L (73-393) Laboratory Tests 02/06/17 01:10 Laboratory Tests 02/06/17 01:10 EKG EKG [] Radiology/Procedures Radiology/Procedures [] Course & Med Decision Making Course & Med Decision Making Pertinent Labs and Imaging studies reviewed. (See chart for details) [] Dragon Disclaimer Dragon Disclaimer This electronic medical record was generated, in whole or in part, using a voice recognition dictation system. Departure Departure Impression: Primary Impression: Chronic abdominal pain Additional Impression: Abdominal pain Disposition: HOME, SELF-CARE Condition: IMPROVED Referrals: UNKNOWN PCP NAME (PCP) Patient Instructions: Abdominal Pain (Nonspecific) Problem Qualifiers HASMUKH REBOLLEDO MD Feb 06, 2017 01:59
[2017-02-06 02:11] VITALS: BP 155/99
--- NOTE | 2017-02-06 02:28 | EKG ---
[facility] [address] [place] [address] Test Date: 2017-02-06 Test Time: 01:03:53 Pat Name: HIPOLITO NELSON Department: Room: Gender: F Special Officer: : 1970 Requested By: HASMUKH REBOLLEDO Order Number: [id number] Reading MD: Measurements Intervals [place] Rate: 76 P: 40 [place]: 172 QRS: -9 QRSD: 94 T: 8 QT: 388 QTc: 441 Interpretive Statements SINUS RHYTHM LEFTWARD AXIS QRS(T) CONTOUR ABNORMALITY CONSIDER ANTEROSEPTAL MYOCARDIAL DAMAGE CONSISTENT WITH INFERIOR INFARCT AGE UNDETERMINED ABNORMAL ECG RI6.01 No previous ECG available for comparison
[2017-02-06 05:26] LABS: PLT ESTIMATE ADEQUATE (ADEQUATE)
[2017-02-06 05:27] LABS: ANISOCYTOSIS MOD; POLYCHROMASIA SLIGHT
--- NOTE | 2017-02-06 08:12 | RAD ---
ACUTE ABDOMEN SERIES Clinical Indication: abd pain Comparison: October 24, 2016 Technique: Upright and supine views of the abdomen and an upright frontal view of the chest is obtained. Findings: No focal consolidation, pleural effusion or pneumothorax is seen. Cardiomediastinal silhouette remains within normal limits of size. No intra-abdominal free air is seen on the upright view. A a few nonspecific air-fluid levels are present. No dilated bowel loops are seen to suggest obstruction. Formed fecal material is seen within the proximal colon. No significant small bowel gas is present. Postcholecystectomy clips redemonstrated. Visualized osseous structures and surrounding soft tissues demonstrate no acute finding. IMPRESSION: 1. No radiographic evidence of an acute cardiopulmonary process. 2. Nonobstructive appearing bowel gas pattern.
== END 2017-02-06 02:48 | disposition home or self-care (01) ==
LOC: ER 23:09
DX: R10.12 Left upper quadrant pain (principal); G89.29 Other chronic pain; R11.0 Nausea; K92.0 Hematemesis; E78.00 Pure hypercholesterolemia, unspecified; E11.9 Type 2 diabetes mellitus without complications; F32.9 Major depressive disorder, single episode, unspecified; F41.9 Anxiety disorder, unspecified; I10 Essential (primary) hypertension; K21.9 Gastro-esophageal reflux disease without esophagitis; Z90.49 Acquired absence of other specified parts of digestive tract; Z90.710 Acquired absence of both cervix and uterus; Z88.8 Allergy status to other drugs, medicaments and biological substances
CPT/HCPCS: 36415; 74022; 80053; 81001; 81025; 83690; 84484; 85007; 85027; 93005; 96361; 96374; 96375; 99285; C9113; J1170; J2405; J7030

== ENCOUNTER 2017-02-07 21:53 | Emergency (ER) | payer BC ==
[~2017-02-07] VITALS: Ht 162.6 cm; Wt 99.8 kg
--- NOTE | 2017-02-07 23:04 | PHYS DOC ---
Past Medical History Past Medical History: Anemia, Anxiety, Constipation, Depression, GERD, High Cholesterol, Other Additional Past Medical Histor: rectal ulcers,endometrosis,c.diff,insomnia Past Surgical History: Appendectomy, Cholecystectomy, Hysterectomy, Other Additional Past Surgical Histo: rectal sx Alcohol Use: Occasionally Drug Use: None Adult General Chief Complaint Chief Complaint: ABDOMINAL PAIN HPI HPI Patient is a 46 year old female who presents with complaint of left upper quadrant abdominal pain. The patient has history of chronic abdominal pain. Patient was seen 2 days ago in the emergency department. Patient was treated for symptoms and recommended follow-up. Patient states that she started having worsening symptoms again today and started having nausea and vomiting. Patient states she has not been able to keep any food down due to her symptoms. Patient denies any fevers. Patient states pain is located along her left upper quadrant. Patient states that she has pain that radiates towards left side of her back. Patient has not been able to take her home pain medications due to her nausea. Patient denies any rectal bleeding or bloody stools. Review of Systems Review of Systems Constitutional: Denies fever or chills [] Eyes: Denies change in visual acuity, redness, or eye pain [] HENT: Denies nasal congestion or sore throat [] Respiratory: Denies cough or shortness of breath [] Cardiovascular: Denies chest pain or edema [] GI: Abdominal pain, nausea, vomiting, denies bloody stools or diarrhea [] : Denies dysuria or hematuria [] Musculoskeletal: Denies back pain or joint pain [] Integument: Denies rash or skin lesions [] Neurologic: Denies headache, focal weakness or sensory changes [] Current Medications Current Medications Current Medications Medications (Trade) Dose Ordered Sig/Ga Start Time Stop Time Status Last Admin Dose Admin Acetaminophen/ Hydrocodone Bitart (Lortab 10/325) 1 tab 1X ONCE 02/08/17 01:15 02/08/17 01:16 DC 02/08/17 01:13 1 TAB Famotidine (Pepcid) 20 mg 1X ONCE 02/07/17 23:30 02/07/17 23:31 DC 02/07/17 23:19 20 MG Hydromorphone HCl (Dilaudid) 1 mg 1X ONCE 02/07/17 23:30 02/07/17 23:31 DC 02/07/17 23:18 1 MG Ondansetron HCl (Zofran) 4 mg 1X ONCE 02/07/17 23:30 02/07/17 23:31 DC 02/07/17 23:19 4 MG Sodium Chloride (Iv Sodium Chloride 0.9% 1000ml Bag) 1,000 ml @ 1,000 mls/hr Q1H 02/07/17 23:30 02/08/17 00:29 DC 02/07/17 23:15 1,000 MLS/HR Allergies Allergies Allergies Coded Allergies Type Severity Reaction Last Updated Verified cephalexin Allergy Intermediate rash, red ears 08/14/16 No prochlorperazine Allergy Intermediate 11/24/16 Yes Physical Exam Physical Exam Constitutional: Alert, afebrile, appears in moderate discomfort. [] HENT: Normocephalic, atraumatic, bilateral external ears normal, oropharynx moist, no oral exudates, nose normal. [] Eyes: PERRLA, EOMI, conjunctiva normal, no discharge. [] Neck: Normal range of motion, no tenderness, supple, no stridor. [] Cardiovascular:Heart rate regular rhythm, no murmur [] Lungs & Thorax: Bilateral breath sounds clear to auscultation [] Abdomen: Bowel sounds normal, soft, left upper quadrant tenderness to palpation , no guarding or rebound tenderness present, no masses, no pulsatile masses. [] Skin: Warm, dry, no erythema, no rash. [] Back: No tenderness, no CVA tenderness. [] Extremities: No tenderness, no cyanosis, no clubbing, ROM intact, no edema. [] Neurologic: Alert and oriented X 3, normal motor function, normal sensory function, no focal deficits noted. [] Current Patient Data Vital Signs Vital Signs Date Time Temp Pulse Resp B/P Pulse Ox O2 Delivery O2 Flow Rate FiO2 02/08/17 01:13 16 Room Air 02/08/17 00:26 82 127/69 96 02/07/17 22:36 98.7 98.7 Lab Values Laboratory Tests Test 02/07/17 22:30 White Blood Count 6.3x10^3/uL (4.0-11.0) Red Blood Count 3.90x10^6/uL (3.50-5.40) Hemoglobin 10.3g/dL (12.0-15.5) L Hematocrit 32.3% (36.0-47.0) L Mean Corpuscular Volume 83fL (79-100) Mean Corpuscular Hemoglobin 26pg (25-35) Mean Corpuscular Hemoglobin Concent 32g/dL (31-37) Red Cell Distribution Width 20.9% (11.5-14.5) H Platelet Count 248x10^3/uL (140-400) Neutrophils (%) (Auto) 73% (31-73) Lymphocytes (%) (Auto) 14% (24-48) L Monocytes (%) (Auto) 8% (0-9) Eosinophils (%) (Auto) 5% (0-3) H Basophils (%) (Auto) 0% (0-3) Neutrophils # (Auto) 4.6x10^3uL (1.8-7.7) Lymphocytes # (Auto) 0.9x10^3/uL (1.0-4.8) L Monocytes # (Auto) 0.5x10^3/uL (0.0-1.1) Eosinophils # (Auto) 0.3x10^3/uL (0.0-0.7) Basophils # (Auto) 0.0x10^3/uL (0.0-0.2) Platelet Estimate Adequate (ADEQUATE) Anisocytosis Mod Sodium Level 142mmol/L (136-145) Potassium Level 3.9mmol/L (3.5-5.1) Chloride Level 104mmol/L (98-107) Carbon Dioxide Level 29mmol/L (21-32) Anion Gap 9 (6-14) Blood Urea Nitrogen 12mg/dL (7-20) Creatinine 0.7mg/dL (0.6-1.0) Estimated GFR (Cockcroft-Gault) 89.7 BUN/Creatinine Ratio 17 (6-20) Glucose Level 133mg/dL (70-99) H Calcium Level 8.8mg/dL (8.5-10.1) Total Bilirubin 0.2mg/dL (0.2-1.0) Aspartate Amino Transferase (AST) 16U/L (15-37) Alanine Aminotransferase (ALT) 35U/L (14-59) Alkaline Phosphatase 107U/L (46-116) Total Protein 7.2g/dL (6.4-8.2) Albumin 3.5g/dL (3.4-5.0) Albumin/Globulin Ratio 0.9 (1.0-1.7) L Lipase 189U/L (73-393) Laboratory Tests 02/07/17 22:30 Laboratory Tests 02/07/17 22:30 EKG EKG Not performed [] Radiology/Procedures Radiology/Procedures Not performed [] Course & Med Decision Making Course & Med Decision Making Pertinent Labs and Imaging studies reviewed. (See chart for details) Patient was given IV Dilaudid and Zofran in the emergency department with improvement in symptoms. Patient's lab work appears stable. The patient was discharged with recommended follow-up with patient's primary doctor in the next 1-2 days for reevaluation and to discuss refill of patient's chronic pain medications. Advised return emergency department for any worsening symptoms. Patient voiced understanding and in agreement with treatment plan. Dragon Disclaimer Dragon Disclaimer This electronic medical record was generated, in whole or in part, using a voice recognition dictation system. Departure Departure Impression: Primary Impression: Chronic abdominal pain Disposition: HOME, SELF-CARE Condition: IMPROVED Referrals: UNKNOWN PCP NAME (PCP) Patient Instructions: Abdominal Pain (Nonspecific) Additional Instructions: Follow-up with your primary doctor tomorrow as scheduled. Return to the emergency department for any worsening symptoms. GALE CABALLERO MD Feb 07, 2017 23:04
[2017-02-07 23:10] LABS: BASO % 0 % (0-3); EOS % 5 % (0-3); HEMATOCRIT 32.3 % (36.0-47.0); HEMOGLOBIN 10.3 g/dL (12.0-15.5); LYMPH # 0.9 x10^3/uL (1.0-4.8); LYMPH % 14 % (24-48); MEAN CORPUSCULAR HEMOGLOBIN 26 pg (25-35); MEAN CORPUSCULAR HGB CONC 32 g/dL (31-37); MEAN CORPUSCULAR VOLUME 83 fL (79-100); MONO % 8 % (0-9); NEUT % 73 % (31-73); PLATELET COUNT 248 x10^3/uL (140-400); RED CELL DISTRIBUTION WIDTH 20.9 % (11.5-14.5); WHITE BLOOD COUNT 6.3 x10^3/uL (4.0-11.0)
[2017-02-07 23:22] LABS: CALCIUM 8.8 mg/dL (8.5-10.1); CREATININE 0.7 mg/dL (0.6-1.0); GFR 89.7; POTASSIUM 3.9 mmol/L (3.5-5.1)
[2017-02-07 23:27] LABS: ALBUMIN 3.5 g/dL (3.4-5.0); ALBUMIN/GLOBULIN RATIO 0.9 (1.0-1.7); TOTAL BILIRUBIN 0.2 mg/dL (0.2-1.0); TOTAL PROTEIN 7.2 g/dL (6.4-8.2)
[2017-02-07] MEDS ORDERED: IV NORMAL SALINE 1000ML BAG 1,000 ML IV SCH (23:30)
[2017-02-07] MEDS ORDERED: ONDANSETRON PF 4 MG/2 ML VIAL. IV ONE (23:30)
[2017-02-07] MEDS ORDERED: HYDROMORPHONE 2 MG/ML VIAL. IV ONE (23:30)
[2017-02-07] MEDS ORDERED: FAMOTIDINE 20 MG/2 ML VIAL IVP ONE (23:30)
[2017-02-08 00:26] VITALS: BP 127/69
[2017-02-08] MEDS ORDERED: HYDROCODONE/APAP 10/325 TABLET. PO ONE (01:15)
[2017-02-08 05:06] LABS: ANISOCYTOSIS MOD; PLT ESTIMATE ADEQUATE (ADEQUATE)
== END 2017-02-08 01:16 | disposition home or self-care (01) ==
LOC: ER 21:54
DX: G89.29 Other chronic pain (principal); R10.12 Left upper quadrant pain; F41.9 Anxiety disorder, unspecified; E78.00 Pure hypercholesterolemia, unspecified; K21.9 Gastro-esophageal reflux disease without esophagitis; G47.00 Insomnia, unspecified; Z90.49 Acquired absence of other specified parts of digestive tract; Z90.710 Acquired absence of both cervix and uterus; Z88.1 Allergy status to other antibiotic agents; Z88.8 Allergy status to other drugs, medicaments and biological substances
CPT/HCPCS: 36415; 80053; 83690; 85007; 85027; 96361; 96374; 96375; 99285; J1170; J2405; J7030; S0028

== ENCOUNTER 2017-02-18 11:24 | Emergency (ER) | payer BC ==
[~2017-02-18] VITALS: Ht 162.6 cm; Wt 113.4 kg
[2017-02-18 12:15] LABS: BASO % 1 % (0-3); EOS % 3 % (0-3); HEMOGLOBIN 11.4 g/dL (12.0-15.5); LYMPH # 0.9 x10^3/uL (1.0-4.8); LYMPH % 16 % (24-48); MEAN CORPUSCULAR HEMOGLOBIN 27 pg (25-35); MEAN CORPUSCULAR HGB CONC 33 g/dL (31-37); MEAN CORPUSCULAR VOLUME 83 fL (79-100); MONO % 7 % (0-9); NEUT % 72 % (31-73); PLATELET COUNT 260 x10^3/uL (140-400); RED BLOOD COUNT 4.22 x10^6/uL (3.50-5.40); RED CELL DISTRIBUTION WIDTH 20.3 % (11.5-14.5); WHITE BLOOD COUNT 5.4 x10^3/uL (4.0-11.0)
[2017-02-18] MEDS ORDERED: HYDROmorphone 2 MG/ML VIAL IV ONE (12:15)
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
[2017-02-18 12:57] VITALS: BP 133/95
[2017-02-18 13:41] LABS: ANISOCYTOSIS MOD; PLT ESTIMATE ADEQUATE (ADEQUATE)
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
== END 2017-02-18 13:22 | disposition home or self-care (01) ==
LOC: ER 11:24
DX: R10.9 Unspecified abdominal pain (principal); M25.561 Pain in right knee; F11.10 Opioid abuse, uncomplicated; F41.9 Anxiety disorder, unspecified; K21.9 Gastro-esophageal reflux disease without esophagitis; E78.00 Pure hypercholesterolemia, unspecified; F17.200 Nicotine dependence, unspecified, uncomplicated; F32.9 Major depressive disorder, single episode, unspecified; Z90.49 Acquired absence of other specified parts of digestive tract; Z90.710 Acquired absence of both cervix and uterus; Z88.8 Allergy status to other drugs, medicaments and biological substances; V98.8XXA Other specified transport accidents, initial encounter; Y93.89 Activity, other specified; Y92.481 Parking lot as the place of occurrence of the external cause; Y99.8 Other external cause status
CPT/HCPCS: 36415; 73562; 85007; 85027; 99285-25

== ENCOUNTER 2017-03-05 15:26 | Emergency (ER) | payer BC ==
[~2017-03-05] VITALS: Ht 162.6 cm; Wt 113.4 kg
[2017-03-05 16:34] VITALS: BP 130/84
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
== END 2017-03-05 17:18 | disposition left against medical advice (07) ==
LOC: ER 16:42
DX: R10.32 Left lower quadrant pain (principal); F41.9 Anxiety disorder, unspecified; F32.9 Major depressive disorder, single episode, unspecified; K21.9 Gastro-esophageal reflux disease without esophagitis; E78.00 Pure hypercholesterolemia, unspecified; G47.00 Insomnia, unspecified; Z90.49 Acquired absence of other specified parts of digestive tract; Z90.710 Acquired absence of both cervix and uterus; Z88.1 Allergy status to other antibiotic agents; Z88.8 Allergy status to other drugs, medicaments and biological substances
CPT/HCPCS: 99281

== ENCOUNTER 2017-03-12 20:16 | Emergency (ER) | payer BC ==
[~2017-03-12] VITALS: Ht 162.6 cm; Wt 113.4 kg
--- NOTE | 2017-03-12 20:58 | PHYS DOC ---
Past Medical History Past Medical History: Anemia, Anxiety, Constipation, Depression, GERD, High Cholesterol, Other Additional Past Medical Histor: rectal ulcers,endometrosis,c.diff,insomnia Past Surgical History: Appendectomy, Cholecystectomy, Hysterectomy, Other Additional Past Surgical Histo: rectal sx Alcohol Use: Occasionally Drug Use: None Adult General Chief Complaint Chief Complaint: ABDOMINAL PAIN HPI HPI Patient is a 46 year old female with chronic abdominal pain and bleeding rectal ulcers who presents with LLQ abdominal pain today associated with blood on toilet paper when wiping. Notes this after BM and urination. She thinks it is vaginal bleeding, but has had hysterectomy prior. She had a nonbloody bowel movement this a.m. with no straining or constipation. She denies f/c, n/v, dysuria, hematuria. Denies vaginal trauma or sexual activity or discharge otherwise. Review of Systems Review of Systems Constitutional: Denies fever or chills [] Eyes: Denies change in visual acuity, redness, or eye pain [] HENT: Denies nasal congestion or sore throat [] Respiratory: Denies cough or shortness of breath [] Cardiovascular: No additional information not addressed in HPI [] GI: Denies nausea, vomiting, bloody stools or diarrhea [] : Denies dysuria or hematuria [] Musculoskeletal: Denies back pain or joint pain [] Integument: Denies rash or skin lesions [] Neurologic: Denies headache, focal weakness or sensory changes [] Endocrine: Denies polyuria or polydipsia [] Allergies Allergies Allergies Coded Allergies Type Severity Reaction Last Updated Verified cephalexin Allergy Intermediate rash, red ears 08/14/16 No prochlorperazine Allergy Intermediate 11/24/16 Yes Physical Exam Physical Exam Constitutional: Well developed, well nourished, no acute distress, non-toxic appearance. [] HENT: Normocephalic, atraumatic, bilateral external ears normal, oropharynx moist, nose normal. [] Eyes: PERRLA, EOMI. [] Neck: Normal range of motion, supple. [] Cardiovascular:Heart rate regular rhythm [] Lungs & Thorax: Bilateral breath sounds clear to auscultation [] Abdomen: Bowel sounds normal, soft, no tenderness. No obvious external rectal source of bleeding. Digital rectal exam declined [] Genitourinary: Has small red ulcerations to R>L labia minora and clitoral area that roxanne and are nontender; has slight blood clotting locally; no obvious blood from vagina otherwise; speculum exam declined Skin: Warm, dry, no erythema, no rash. [] Back: Normal ROM. [] Extremities: ROM intact, no edema. [] Neurologic: Alert and oriented X 3, normal motor function, normal sensory function, no focal deficits noted. [] Psychologic: Affect normal, judgement normal, mood normal. [] Current Patient Data Vital Signs Vital Signs Date Time Temp Pulse Resp B/P (MAP) Pulse Ox O2 Delivery O2 Flow Rate FiO2 03/12/17 20:44 98.8 98 16 152/92 (112) 97 Room Air 98.8 Course & Med Decision Making Course & Med Decision Making Pertinent Labs and Imaging studies reviewed. (See chart for details) Discussed has abnormal external vaginal exam and needs to see DIRECTOR AND PROFESSOR. Also discussed bleeding source could be internal rectal with h/o rectal ulcerations. Return precautions given. She understands and agrees with plan. Dragon Disclaimer Dragon Disclaimer This electronic medical record was generated, in whole or in part, using a voice recognition dictation system. Departure Departure Impression: Primary Impression: Vaginal bleeding Disposition: HOME, SELF-CARE Condition: STABLE Referrals: UNKNOWN PCP NAME (PCP) Patient Instructions: Abdominal Pain, [id number] Additional Instructions: Follow up with your primary care doctor and [facility]. Return for any concerns. Desmond BECKFORD MD March 12, 2017 20:58
[2017-03-12 21:22] VITALS: BP 131/69
== END 2017-03-12 21:24 | disposition home or self-care (01) ==
LOC: ER 20:16
DX: N93.9 Abnormal uterine and vaginal bleeding, unspecified (principal); G89.29 Other chronic pain; K21.9 Gastro-esophageal reflux disease without esophagitis; E78.00 Pure hypercholesterolemia, unspecified; Z87.19 Personal history of other diseases of the digestive system; Z90.49 Acquired absence of other specified parts of digestive tract; Z90.710 Acquired absence of both cervix and uterus; Z98.890 Other specified postprocedural states; Z88.1 Allergy status to other antibiotic agents; Z88.8 Allergy status to other drugs, medicaments and biological substances
CPT/HCPCS: 99284

== ENCOUNTER 2017-03-21 20:53 | Emergency (ER) | payer BC ==
[~2017-03-21] VITALS: Ht 162.6 cm; Wt 113.4 kg
[2017-03-21 21:23] VITALS: BP 151/116
[2017-03-21 21:57] LABS: NEG OBC FOB NEG; POS OBC FOB POS
--- NOTE | 2017-03-21 22:21 | PHYS DOC ---
Past Medical History Past Medical History: Anemia, Anxiety, Constipation, Depression, GERD, High Cholesterol, Other Additional Past Medical Histor: rectal ulcers,endometrosis,c.diff,insomnia, CHRONIC RECTAL BLEEDING Past Surgical History: Appendectomy, Cholecystectomy, Hysterectomy, Other Additional Past Surgical Histo: rectal sx Alcohol Use: Occasionally Drug Use: None Adult General Chief Complaint Chief Complaint: RECTAL BLEED HPI HPI Patient is a 46 year old female who presents with complaint of rectal pain and bleeding. Patient states that she is having similar symptoms with previous episodes. Patient has history of chronic rectal ulcers and has had numerous episodes of aye-ptcc-vxjydbstylh bleeding associated with them. Patient states that her symptoms are similar to previous exacerbations. Patient states that these episodes are very painful and patient is on hydrocodone therapy at home for treatment of chronic pain. Patient also takes mesalamine and Anusol suppositories for treatment of her exacerbations. Patient came to the emergency department due to worsening pain and patient also wanted to make sure that she did not have any drop in her blood counts. Patient rates her pain currently as 8 out of 10. Patient states that the pain is localized to her rectum and denies radiation of pain. Review of Systems Review of Systems Constitutional: Denies fever or chills [] Eyes: Denies change in visual acuity, redness, or eye pain [] HENT: Denies nasal congestion or sore throat [] Respiratory: Denies cough or shortness of breath [] Cardiovascular: Denies chest pain or edema [] GI: Rectal pain, bloody stools [] : Denies dysuria or hematuria [] Musculoskeletal: Denies back pain or joint pain [] Integument: Denies rash or skin lesions [] Neurologic: Denies headache, focal weakness or sensory changes [] Current Medications Current Medications Current Medications Medications (Trade) Dose Ordered Sig/Ga Start Time Stop Time Status Last Admin Dose Admin Hydromorphone HCl (Dilaudid) 1 mg 1X ONCE 03/21/17 23:00 03/21/17 23:01 DC 03/21/17 22:51 1 MG Ondansetron HCl (Zofran Odt) 4 mg 1X ONCE 03/21/17 23:00 03/21/17 23:01 DC 03/21/17 22:50 4 MG Allergies Allergies Allergies Coded Allergies Type Severity Reaction Last Updated Verified cephalexin Allergy Intermediate rash, red ears 08/14/16 No prochlorperazine Allergy Intermediate 11/24/16 Yes Physical Exam Physical Exam Constitutional: Alert, afebrile, appears in moderate discomfort. [] HENT: Normocephalic, atraumatic, bilateral external ears normal, oropharynx moist, no oral exudates, nose normal. [] Eyes: PERRLA, EOMI, conjunctiva normal, no discharge. [] Neck: Normal range of motion, no tenderness, supple, no stridor. [] Cardiovascular: Tachycardia, regular rhythm, no murmur [] Lungs & Thorax: Bilateral breath sounds clear to auscultation [] Abdomen: Bowel sounds normal, soft, no tenderness, no masses, no pulsatile masses, mild to moderate gross blood on rectal exam. [] Skin: Warm, dry, no erythema, no rash. [] Back: No tenderness, no CVA tenderness. [] Extremities: No tenderness, no cyanosis, no clubbing, ROM intact, no edema. [] Neurologic: Alert and oriented X 3, normal motor function, normal sensory function, no focal deficits noted. [] Current Patient Data Vital Signs Vital Signs Date Time Temp Pulse Resp B/P (MAP) Pulse Ox O2 Delivery O2 Flow Rate FiO2 03/21/17 22:51 18 97 Room Air 03/21/17 21:23 99.0 113 151/116 (128) 99.0 Lab Values Laboratory Tests Test 03/21/17 21:42 03/21/17 22:38 Stool Occult Blood Positive (NEG) White Blood Count 4.3 x10^3/uL (4.0-11.0) Red Blood Count 4.07 x10^6/uL (3.50-5.40) Hemoglobin 11.3 g/dL (12.0-15.5) L Hematocrit 33.9 % (36.0-47.0) L Mean Corpuscular Volume 83 fL (79-100) Mean Corpuscular Hemoglobin 28 pg (25-35) Mean Corpuscular Hemoglobin Concent 33 g/dL (31-37) Red Cell Distribution Width 17.6 % (11.5-14.5) H Platelet Count 245 x10^3/uL (140-400) Neutrophils (%) (Auto) 71 % (31-73) Lymphocytes (%) (Auto) 18 % (24-48) L Monocytes (%) (Auto) 7 % (0-9) Eosinophils (%) (Auto) 4 % (0-3) H Basophils (%) (Auto) 1 % (0-3) Neutrophils # (Auto) 3.0 x10^3uL (1.8-7.7) Lymphocytes # (Auto) 0.8 x10^3/uL (1.0-4.8) L Monocytes # (Auto) 0.3 x10^3/uL (0.0-1.1) Eosinophils # (Auto) 0.2 x10^3/uL (0.0-0.7) Basophils # (Auto) 0.0 x10^3/uL (0.0-0.2) Sodium Level 142 mmol/L (136-145) Potassium Level 3.5 mmol/L (3.5-5.1) Chloride Level 103 mmol/L (98-107) Carbon Dioxide Level 24 mmol/L (21-32) Anion Gap 15 (6-14) H Blood Urea Nitrogen 10 mg/dL (7-20) Creatinine 0.9 mg/dL (0.6-1.0) Estimated GFR (Cockcroft-Gault) 67.1 BUN/Creatinine Ratio 11 (6-20) Glucose Level 172 mg/dL (70-99) H Calcium Level 9.3 mg/dL (8.5-10.1) Total Bilirubin 0.2 mg/dL (0.2-1.0) Aspartate Amino Transferase (AST) 19 U/L (15-37) Alanine Aminotransferase (ALT) 44 U/L (14-59) Alkaline Phosphatase 125 U/L (46-116) H Total Protein 7.5 g/dL (6.4-8.2) Albumin 3.7 g/dL (3.4-5.0) Albumin/Globulin Ratio 1.0 (1.0-1.7) Lipase 147 U/L (73-393) Laboratory Tests 03/21/17 22:38 Laboratory Tests 03/21/17 22:38 EKG EKG Not performed [] Radiology/Procedures Radiology/Procedures Not performed [] Course & Med Decision Making Course & Med Decision Making Pertinent Labs and Imaging studies reviewed. (See chart for details) Patient's blood work is stable. The patient has had multiple visits to the emergency department for Pain complaints related to her rectal ulcers. I spoke with the patient regarding need for further evaluation as the emergency department is unable to adequately control the patient's pain related to this chronic condition. We discussed need for colorectal surgeon evaluation to see if she is a candidate for colon resection for treatment of her ulcers. The patient also will be referred to Dr. Kan Suarez of the pain management clinic for further evaluation and assistance with pain control. The patient was given a dose of IM Dilaudid in the emergency department to help with acute treatment of her pain. The patient was instructed to continue on her home medications for further pain management at home. Advised return to emergency department for any worsening symptoms. Patient voiced understanding and in agreement with treatment plan. Dragon Disclaimer Dragon Disclaimer This electronic medical record was generated, in whole or in part, using a voice recognition dictation system. Departure Departure Impression: Primary Impression: Rectal pain, chronic Additional Impression: Rectal bleeding Disposition: HOME, SELF-CARE Condition: IMPROVED Referrals: UNKNOWN PCP NAME (PCP) KAN SUAREZ MD Patient Instructions: Chronic Pain Additional Instructions: Your lab work today showed stable findings compared to previous labs. There does not appear to be any evidence of life-threatening bleeding associated with your rectal ulcers at this time. 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 You were also being referred to Dr. Kan Suarez, painter helper, for further assistance with outpatient pain management. Return to the emergency department for any worsening symptoms. Problem Qualifiers GALE CABALLERO MD March 21, 2017 22:21
[2017-03-21 22:46] LABS: BASO % 1 % (0-3); EOS % 4 % (0-3); HEMATOCRIT 33.9 % (36.0-47.0); HEMOGLOBIN 11.3 g/dL (12.0-15.5); LYMPH # 0.8 x10^3/uL (1.0-4.8); LYMPH % 18 % (24-48); MEAN CORPUSCULAR HEMOGLOBIN 28 pg (25-35); MEAN CORPUSCULAR HGB CONC 33 g/dL (31-37); MEAN CORPUSCULAR VOLUME 83 fL (79-100); MONO % 7 % (0-9); NEUT % 71 % (31-73); PLATELET COUNT 245 x10^3/uL (140-400); RED BLOOD COUNT 4.07 x10^6/uL (3.50-5.40); RED CELL DISTRIBUTION WIDTH 17.6 % (11.5-14.5); WHITE BLOOD COUNT 4.3 x10^3/uL (4.0-11.0)
[2017-03-21 22:54] LABS: CALCIUM 9.3 mg/dL (8.5-10.1); CREATININE 0.9 mg/dL (0.6-1.0); GFR 67.1; POTASSIUM 3.5 mmol/L (3.5-5.1)
[2017-03-21 22:59] LABS: ALBUMIN 3.7 g/dL (3.4-5.0); TOTAL BILIRUBIN 0.2 mg/dL (0.2-1.0); TOTAL PROTEIN 7.5 g/dL (6.4-8.2)
[2017-03-21] MEDS ORDERED: HYDROmorphone 2 MG/ML VIAL IM ONE (23:00)
[2017-03-21] MEDS ORDERED: ONDANSETRON ODT 4 MG TAB.RAPDIS. PO ONE (23:00)
== END 2017-03-21 23:41 | disposition home or self-care (01) ==
LOC: ER 20:57
DX: G89.29 Other chronic pain (principal); K62.89 Other specified diseases of anus and rectum; K62.5 Hemorrhage of anus and rectum; F41.9 Anxiety disorder, unspecified; F32.9 Major depressive disorder, single episode, unspecified; K21.9 Gastro-esophageal reflux disease without esophagitis; E78.00 Pure hypercholesterolemia, unspecified; G47.00 Insomnia, unspecified; Z90.49 Acquired absence of other specified parts of digestive tract; Z90.710 Acquired absence of both cervix and uterus; Z88.1 Allergy status to other antibiotic agents; Z88.8 Allergy status to other drugs, medicaments and biological substances
CPT/HCPCS: 36415; 80053; 82274; 83690; 85027; 96372; 99284; J1170; Q0162

== ENCOUNTER 2017-04-03 14:07 | Emergency (ER) | payer BC ==
[~2017-04-03] VITALS: Ht 162.6 cm; Wt 113.4 kg
[~2017-04-03 14:07] MED LIST changes: -HYDR-2666 PO; +HYDR-2758 PO; -TRAM-29 PO; +TRAM-48 PO
[2017-04-03] MEDS ORDERED: IV NORMAL SALINE 1000ML BAG 1,000 ML IV ONE (14:30)
[2017-04-03 15:09] LABS: BASO % 1 % (0-3); EOS % 5 % (0-3); HEMATOCRIT 32.5 % (36.0-47.0); HEMOGLOBIN 10.7 g/dL (12.0-15.5); LYMPH # 0.8 x10^3/uL (1.0-4.8); LYMPH % 16 % (24-48); MEAN CORPUSCULAR HEMOGLOBIN 28 pg (25-35); MEAN CORPUSCULAR HGB CONC 33 g/dL (31-37); MEAN CORPUSCULAR VOLUME 84 fL (79-100); MONO % 7 % (0-9); NEUT % 71 % (31-73); PLATELET COUNT 244 x10^3/uL (140-400); RED BLOOD COUNT 3.86 x10^6/uL (3.50-5.40); RED CELL DISTRIBUTION WIDTH 16.2 % (11.5-14.5); WHITE BLOOD COUNT 4.8 x10^3/uL (4.0-11.0)
[2017-04-03 15:09] LABS: BILIRUBIN,URINE SMALL (NEG); GLUCOSE,URINE NEGATIVE (NEG); NITRITE,URINE NEGATIVE (NEG); PH,URINE 5.5; PROTEIN,URINE 30 mg/dL (NEG-TRACE); UROBILINOGEN,URINE 0.2 mg/dL (0.2 mg/dL)
[2017-04-03 15:14] LABS: BARBITURATES NEG (NEG); BENZODIAZEPINES POS (NEG); CANNABINOIDS NEG (NEG); COCAINE NEG (NEG); METHADONE NEG (NEG); OPIATES POS (NEG); PHENCYCLIDINE NEG (NEG)
[2017-04-03 15:18] LABS: BACTERIA,URINE MODERATE /HPF (0-FEW); RBC,URINE 0 /HPF (0-2); SQUAMOUS EPITHELIAL CELL,UR MOD /LPF
[2017-04-03 15:21] LABS: CALCIUM 9.1 mg/dL (8.5-10.1); CREATININE 0.9 mg/dL (0.6-1.0); GFR 67.1; POTASSIUM 3.7 mmol/L (3.5-5.1)
[2017-04-03 15:29] LABS: ALBUMIN 3.5 g/dL (3.4-5.0); ALBUMIN/GLOBULIN RATIO 0.9 (1.0-1.7); TOTAL BILIRUBIN 0.2 mg/dL (0.2-1.0); TOTAL PROTEIN 7.5 g/dL (6.4-8.2)
[2017-04-03] MEDS ORDERED: HALOPERIDOL LACTATE 5 MG/ML VIAL. IVP ONE (15:30)
[2017-04-03 15:52] VITALS: BP 115/78
[2017-04-03] MEDS ORDERED: ONDANSETRON PF 4 MG/2 ML VIAL. IV ONE (16:00)
--- NOTE | 2017-04-03 16:07 | ED.ADGEN ---
Past Medical History Past Medical History: Anemia, Anxiety, Constipation, Depression, GERD, High Cholesterol, Other Additional Past Medical Histor: rectal ulcers,endometrosis,c.diff, CHRONIC RECTAL BLEEDING, NARCOTIC ABUSE Past Surgical History: Appendectomy, Cholecystectomy, Hysterectomy, Other Additional Past Surgical Histo: rectal sx Alcohol Use: Occasionally Drug Use: None Adult General Chief Complaint Chief Complaint: ABDOMINAL PAIN HPI HPI Patient is a 46 year old male with history of chronic constipation, anemia, chronic abdominal pain, presents with sharp migratory abdominal pain for the past several hours. Patient denies nausea vomiting diarrhea. Last was yesterday. Reports flatus. No bloody stools or dark tarry stools. No urinary frequency urgency. Denies flank pain, fever chills or sweats. Prior abdominal surgeries including hysterectomy appendectomy and cholecystectomy. Of note, patient's been evaluated multiple times in this ED for this and other similar abdominal complaints. Review of Systems Review of Systems Review of symptoms as per history of present illness. All other review symptoms are negative. Current Medications Current Medications Current Medications Medications (Trade) Dose Ordered Sig/Ga Start Time Stop Time Status Last Admin Dose Admin Haloperidol Lactate (Haldol) 2.5 mg 1X ONCE 04/03/17 15:30 04/03/17 15:57 DC Ondansetron HCl (Zofran) 4 mg 1X ONCE 04/03/17 16:00 04/03/17 16:01 DC 04/03/17 16:01 4 MG Sodium Chloride 1,000 ml @ 1,000 mls/hr 1X ONCE 04/03/17 14:30 04/03/17 15:29 DC 04/03/17 15:17 1,000 MLS/HR Allergies Allergies Allergies Coded Allergies Type Severity Reaction Last Updated Verified cephalexin Allergy Intermediate rash, red ears 08/14/16 No prochlorperazine Allergy Intermediate 11/24/16 Yes Physical Exam Physical Exam Constitutional: Well developed, well nourished, no acute distress, non-toxic appearance. HENT: Normocephalic, atraumatic, bilateral external ears normal, oropharynx moist, no oral exudates, nose normal. Eyes: PERRLA, EOMI, conjunctiva normal, no discharge. Neck: Normal range of motion, no tenderness, supple, no stridor. Cardiovascular:Heart rate regular rhythm, no murmur. Lungs & Thorax: Bilateral breath sounds clear to auscultation. Abdomen: Bowel sounds normal, soft, nondistended, normal bowel sounds, nondescript tenderness, no rebound rigidity or guarding. Skin: Warm, dry, no erythema, no rash. Back: No tenderness, no CVA tenderness. Extremities: No tenderness, no cyanosis, no clubbing, ROM intact, no edema. Neurologic: Alert and oriented X 3, normal motor function, normal sensory function, no focal deficits noted. Psychologic: Affect normal, judgement normal, mood normal. Current Patient Data Vital Signs Vital Signs Date Time Temp Pulse Resp B/P (MAP) Pulse Ox O2 Delivery O2 Flow Rate FiO2 04/03/17 14:15 99.0 103 20 144/87 (106) 94 Room Air 99.0 Lab Values Laboratory Tests Test 04/03/17 14:30 04/03/17 14:35 Urine Collection Type Unknown Urine Color Yellow Urine Clarity Clear Urine pH 5.5 Urine Specific [place] 1.025 Urine Protein 30 mg/dL (NEG-TRACE) Urine Glucose (UA) Negative mg/dL (NEG) Urine Ketones (Stick) Negative mg/dL (NEG) Urine Blood Negative (NEG) Urine Nitrite Negative (NEG) Urine Bilirubin Small (NEG) Urine Urobilinogen Dipstick 0.2 mg/dL (0.2 mg/dL) Urine Leukocyte Esterase Negative (NEG) Urine RBC 0 /HPF (0-2) Urine WBC 5-10 /HPF (0-4) Urine Squamous Epithelial Cells Mod /LPF Urine Transitional Epithelial Cells Few /LPF Urine Bacteria Moderate /HPF (0-FEW) Urine Cellular Casts Occ /HPF Urine Hyaline Casts Few /HPF Urine Granular Casts Few /HPF Urine Mucus Mod /LPF Sodium Level 141 mmol/L (136-145) Potassium Level 3.7 mmol/L (3.5-5.1) Chloride Level 105 mmol/L (98-107) Carbon Dioxide Level 28 mmol/L (21-32) Anion Gap 8 (6-14) Blood Urea Nitrogen 12 mg/dL (7-20) Creatinine 0.9 mg/dL (0.6-1.0) Estimated GFR (Cockcroft-Gault) 67.1 BUN/Creatinine Ratio 13 (6-20) Glucose Level 135 mg/dL (70-99) H Calcium Level 9.1 mg/dL (8.5-10.1) Total Bilirubin 0.2 mg/dL (0.2-1.0) Aspartate Amino Transferase (AST) 26 U/L (15-37) Alanine Aminotransferase (ALT) 39 U/L (14-59) Alkaline Phosphatase 148 U/L (46-116) H Total Protein 7.5 g/dL (6.4-8.2) Albumin 3.5 g/dL (3.4-5.0) Albumin/Globulin Ratio 0.9 (1.0-1.7) L Lipase 108 U/L (73-393) Urine Opiates Screen Pos (NEG) Urine Methadone Screen Neg (NEG) Urine Barbiturates Neg (NEG) Urine Phencyclidine Screen Neg (NEG) Urine Amphetamine/Methamphetamine Neg (NEG) Urine Benzodiazepines Screen Pos (NEG) Urine Cocaine Screen Neg (NEG) Urine Cannabinoids Screen Neg (NEG) Urine Ethyl Alcohol Neg (NEG) White Blood Count 4.8 x10^3/uL (4.0-11.0) Red Blood Count 3.86 x10^6/uL (3.50-5.40) Hemoglobin 10.7 g/dL (12.0-15.5) L Hematocrit 32.5 % (36.0-47.0) L Mean Corpuscular Volume 84 fL (79-100) Mean Corpuscular Hemoglobin 28 pg (25-35) Mean Corpuscular Hemoglobin Concent 33 g/dL (31-37) Red Cell Distribution Width 16.2 % (11.5-14.5) H Platelet Count 244 x10^3/uL (140-400) Neutrophils (%) (Auto) 71 % (31-73) Lymphocytes (%) (Auto) 16 % (24-48) L Monocytes (%) (Auto) 7 % (0-9) Eosinophils (%) (Auto) 5 % (0-3) H Basophils (%) (Auto) 1 % (0-3) Neutrophils # (Auto) 3.5 x10^3uL (1.8-7.7) Lymphocytes # (Auto) 0.8 x10^3/uL (1.0-4.8) L Monocytes # (Auto) 0.4 x10^3/uL (0.0-1.1) Eosinophils # (Auto) 0.2 x10^3/uL (0.0-0.7) Basophils # (Auto) 0.0 x10^3/uL (0.0-0.2) Laboratory Tests 04/03/17 14:35 Laboratory Tests 04/03/17 14:30 EKG EKG [] Radiology/Procedures Radiology/Procedures [] Course & Med Decision Making Course & Med Decision Making Pertinent Labs and Imaging studies reviewed. (See chart for details) [Patient's abdomen remains soft nonsurgical. Lab work essentially unchanged from prior labs. Zofran given for nausea. Recommend continued supportive care with PCP and GI follow-up for management of chronic abdominal pain and constipation. Return precautions reviewed.] Dragon Disclaimer Dragon Disclaimer This electronic medical record was generated, in whole or in part, using a voice recognition dictation system. ENMA PARRY DO Apr 03, 2017 16:07
== END 2017-04-03 16:11 | disposition home or self-care (01) ==
LOC: ER 14:07
DX: K59.00 Constipation, unspecified (principal); G89.29 Other chronic pain; F41.9 Anxiety disorder, unspecified; F32.9 Major depressive disorder, single episode, unspecified; K21.9 Gastro-esophageal reflux disease without esophagitis; F11.10 Opioid abuse, uncomplicated; E78.00 Pure hypercholesterolemia, unspecified; Z90.49 Acquired absence of other specified parts of digestive tract; Z90.710 Acquired absence of both cervix and uterus; Z88.1 Allergy status to other antibiotic agents; Z88.8 Allergy status to other drugs, medicaments and biological substances
CPT/HCPCS: 36415; 80053; 80305; 80320; 81001; 83690; 85027; 87086; 96361; 96374; 99284; J2405; J7030; G0481

== ENCOUNTER 2017-04-11 18:58 | Emergency (ER) | payer BC ==
[~2017-04-11] VITALS: Ht 162.6 cm; Wt 113.4 kg
[2017-04-11 19:28] LABS: BASO % 1 % (0-3); EOS % 6 % (0-3); HEMATOCRIT 31.5 % (36.0-47.0); HEMOGLOBIN 10.4 g/dL (12.0-15.5); LYMPH # 0.9 x10^3/uL (1.0-4.8); LYMPH % 16 % (24-48); MEAN CORPUSCULAR HEMOGLOBIN 28 pg (25-35); MEAN CORPUSCULAR HGB CONC 33 g/dL (31-37); MEAN CORPUSCULAR VOLUME 85 fL (79-100); MONO % 7 % (0-9); NEUT % 70 % (31-73); PLATELET COUNT 262 x10^3/uL (140-400); RED BLOOD COUNT 3.71 x10^6/uL (3.50-5.40); RED CELL DISTRIBUTION WIDTH 15.1 % (11.5-14.5); WHITE BLOOD COUNT 5.4 x10^3/uL (4.0-11.0)
[2017-04-11] MEDS ORDERED: IV NORMAL SALINE 1000ML BAG 1,000 ML IV SCH (19:30)
--- NOTE | 2017-04-11 19:34 | PHYS DOC ---
Past Medical History Past Medical History: Anemia, Anxiety, Constipation, Depression, GERD, High Cholesterol, Other Additional Past Medical Histor: rectal ulcers,endometrosis,c.diff, CHRONIC RECTAL BLEEDING, NARCOTIC ABUSE Past Surgical History: Appendectomy, Cholecystectomy, Hysterectomy, Other Additional Past Surgical Histo: rectal sx Alcohol Use: Occasionally Drug Use: None Adult General Chief Complaint Chief Complaint: ABDOMINAL PAIN HPI HPI Patient is a 46 year old female who presents to the ED with the complaint of abdominal pain that began about 2:00 today. Patient states about 2:00 she developed a "sharp" pain around her umbilicus. It has been worsening since it began. She's had some nausea but no vomiting. She did have a bowel movement after the pain started that did not change her pain. The patient has been seen multiple times for abdominal pain but states that this pain is different. Her usual pain is in the left lower quadrant and she does have a history of a "rectal ulcer". She states she takes MiraLAX about 3 times a week and she takes stool softeners, she has been having normal bowel movements and does not believe that she is constipated. Patient has had cholecystectomy, appendectomy, complete hysterectomy. Review of Systems Review of Systems Constitutional: Denies fever or chills [] Eyes: Denies change in visual acuity, redness, or eye pain [] HENT: Denies nasal congestion or sore throat [] Respiratory: Denies cough or shortness of breath [] Cardiovascular: Denies chest pain GI: As in history of present illness : Denies dysuria or hematuria [] Musculoskeletal: Denies back pain or joint pain [] Integument: Denies rash or skin lesions [] Neurologic: Denies headache, focal weakness or sensory changes [] Current Medications Current Medications Current Medications Medications (Trade) Dose Ordered Sig/Ga Start Time Stop Time Status Last Admin Dose Admin Ondansetron HCl (Zofran) 4 mg 1X ONCE 04/11/17 19:45 04/11/17 19:46 DC 04/11/17 19:31 4 MG Sodium Chloride 1,000 ml @ 1,000 mls/hr Q1H 04/11/17 19:30 04/11/17 20:29 DC 04/11/17 19:31 1,000 MLS/HR Allergies Allergies Allergies Coded Allergies Type Severity Reaction Last Updated Verified cephalexin Allergy Intermediate rash, red ears 08/14/16 No prochlorperazine Allergy Intermediate 11/24/16 Yes Physical Exam Physical Exam Constitutional: Well developed, well nourished, alert, mentating normally, appears uncomfortable but no acute distress. HENT: Normocephalic, atraumatic, bilateral external ears normal, nose normal. [] Eyes: conjunctiva normal, no discharge. [] Neck: Normal range of motion, no stridor. [] Cardiovascular:Heart rate regular rhythm, no murmur [] Lungs & Thorax: Bilateral breath sounds clear to auscultation [] Abdomen: Bowel sounds normal, soft, nondistended, no masses, no pulsatile masses. Tenderness to palpation across the mid abdomen, not localized, no rebound or guarding. Skin: Warm, dry, no erythema, no rash. [] Extremities: No tenderness, no cyanosis, no clubbing, ROM intact, no edema. [] Neurologic: Alert and oriented X 3, normal motor function, normal sensory function, no focal deficits noted. [] Current Patient Data Vital Signs Vital Signs Date Time Temp Pulse Resp B/P (MAP) Pulse Ox O2 Delivery O2 Flow Rate FiO2 04/11/17 19:56 97 17 155/99 (117) 96 Room Air 04/11/17 19:05 99.1 99.1 Lab Values Laboratory Tests Test 04/11/17 19:15 White Blood Count 5.4 x10^3/uL (4.0-11.0) Red Blood Count 3.71 x10^6/uL (3.50-5.40) Hemoglobin 10.4 g/dL (12.0-15.5) L Hematocrit 31.5 % (36.0-47.0) L Mean Corpuscular Volume 85 fL (79-100) Mean Corpuscular Hemoglobin 28 pg (25-35) Mean Corpuscular Hemoglobin Concent 33 g/dL (31-37) Red Cell Distribution Width 15.1 % (11.5-14.5) H Platelet Count 262 x10^3/uL (140-400) Neutrophils (%) (Auto) 70 % (31-73) Lymphocytes (%) (Auto) 16 % (24-48) L Monocytes (%) (Auto) 7 % (0-9) Eosinophils (%) (Auto) 6 % (0-3) H Basophils (%) (Auto) 1 % (0-3) Neutrophils # (Auto) 3.8 x10^3uL (1.8-7.7) Lymphocytes # (Auto) 0.9 x10^3/uL (1.0-4.8) L Monocytes # (Auto) 0.4 x10^3/uL (0.0-1.1) Eosinophils # (Auto) 0.3 x10^3/uL (0.0-0.7) Basophils # (Auto) 0.0 x10^3/uL (0.0-0.2) Sodium Level 143 mmol/L (136-145) Potassium Level 3.7 mmol/L (3.5-5.1) Chloride Level 106 mmol/L (98-107) Carbon Dioxide Level 27 mmol/L (21-32) Anion Gap 10 (6-14) Blood Urea Nitrogen 9 mg/dL (7-20) Creatinine 0.8 mg/dL (0.6-1.0) Estimated GFR (Cockcroft-Gault) 76.9 BUN/Creatinine Ratio 11 (6-20) Glucose Level 150 mg/dL (70-99) H Calcium Level 8.8 mg/dL (8.5-10.1) Total Bilirubin 0.1 mg/dL (0.2-1.0) L Aspartate Amino Transferase (AST) 28 U/L (15-37) Alanine Aminotransferase (ALT) 38 U/L (14-59) Alkaline Phosphatase 126 U/L (46-116) H Total Protein 7.3 g/dL (6.4-8.2) Albumin 3.5 g/dL (3.4-5.0) Albumin/Globulin Ratio 0.9 (1.0-1.7) L Lipase 141 U/L (73-393) Laboratory Tests 04/11/17 19:15 Laboratory Tests 04/11/17 19:15 EKG EKG [] Radiology/Procedures Radiology/Procedures Abdomen flat and upright read by me. Nonspecific bowel gas pattern. No free air. There is a moderate amount of stool in the colon. [] Course & Med Decision Making Course & Med Decision Making Pertinent Labs and Imaging studies reviewed. (See chart for details) 46-year-old female with a history of frequent episodes of abdominal pain, presents with about 4-5 hours of sharp periumbilical abdominal pain. She also has a history of constipation. I discussed with the patient that I prefer to not perform CT scan since she has had quite a bit of radiation in the past and she understands that. We will start with plain films. She is mildly tachycardic , we will give her a dose of IV Zofran and IV fluids. I reviewed the patient's charts with prior visits with prior abdominal pain workups to help with history. Labs unremarkable. The patient is anemic but this is stable for her. Abdomen series does appear consistent with constipation. See instructions for plan. [] Dragon Disclaimer Dragon Disclaimer This electronic medical record was generated, in whole or in part, using a voice recognition dictation system. Departure Departure Impression: Primary Impression: Constipation Disposition: 01 HOME, SELF-CARE Condition: STABLE Referrals: UNKNOWN PCP NAME (PCP) Patient Instructions: Constipation, Adult, [id number] Additional Instructions: I believe your pain is caused by constipation and "gas pains". I recommend the following. Take one dose of MiraLAX every 1-2 hours until you have good "results ". This may be 2 or 3 doses or may be several doses. Be sure you're drinking plenty of fluids along with dosing MiraLAX. VENUS TEJADA MD Apr 11, 2017 19:34
[2017-04-11 19:41] LABS: CALCIUM 8.8 mg/dL (8.5-10.1); CREATININE 0.8 mg/dL (0.6-1.0); GFR 76.9; POTASSIUM 3.7 mmol/L (3.5-5.1)
[2017-04-11] MEDS ORDERED: ONDANSETRON PF 4 MG/2 ML VIAL. IV ONE (19:45)
[2017-04-11 19:47] LABS: ALBUMIN 3.5 g/dL (3.4-5.0); ALBUMIN/GLOBULIN RATIO 0.9 (1.0-1.7); TOTAL BILIRUBIN 0.1 mg/dL (0.2-1.0); TOTAL PROTEIN 7.3 g/dL (6.4-8.2)
[2017-04-11 20:35] VITALS: BP 159/94
--- NOTE | 2017-04-12 06:10 | EKG ---
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 RI6.01 Unconfirmed report Compared to ECG 02/06/2017 01:03:53 Left-axis deviation now present Electronically Signed On 04-12-2017 11:07:31 CDT by Doyle Noonan
--- NOTE | 2017-04-12 08:13 | RAD ---
Indication abdominal pain. Supine and upright films of the abdomen were obtained. Note is made of a previous examination 2 months earlier. The visualized lung bases appear clear. There are clips in the gallbladder fossa. The abdominal gas pattern is normal. No free air is seen. No organomegaly or abnormal calculi are seen. IMPRESSION: No acute or significant finding seen on plain films of the abdomen
== END 2017-04-11 21:03 | disposition home or self-care (01) ==
LOC: ER 18:58
DX: K59.00 Constipation, unspecified (principal); K21.9 Gastro-esophageal reflux disease without esophagitis; F41.9 Anxiety disorder, unspecified; F32.9 Major depressive disorder, single episode, unspecified; E78.00 Pure hypercholesterolemia, unspecified; F11.10 Opioid abuse, uncomplicated; Z90.49 Acquired absence of other specified parts of digestive tract; Z90.710 Acquired absence of both cervix and uterus; Z88.1 Allergy status to other antibiotic agents; Z88.8 Allergy status to other drugs, medicaments and biological substances
CPT/HCPCS: 36415; 74020; 80053; 83690; 85027; 93005; 96361; 96374; 99285; J2405; J7030

== ENCOUNTER 2017-04-15 19:52 | Emergency (ER) | payer BC ==
[~2017-04-15] VITALS: Ht 162.6 cm; Wt 113.4 kg
[2017-04-15] MEDS ORDERED: IV NORMAL SALINE 1000ML BAG 1,000 ML IV SCH (21:01)
[2017-04-15] MEDS ORDERED: fentaNYL PF VIAL 100 MCG/2 ML VIAL IV PRN (21:15)
[2017-04-15 22:23] LABS: BASO % 0 % (0-3); EOS % 5 % (0-3); HEMATOCRIT 31.7 % (36.0-47.0); HEMOGLOBIN 10.5 g/dL (12.0-15.5); LYMPH % 17 % (24-48); MEAN CORPUSCULAR HEMOGLOBIN 28 pg (25-35); MEAN CORPUSCULAR HGB CONC 33 g/dL (31-37); MEAN CORPUSCULAR VOLUME 84 fL (79-100); MONO % 8 % (0-9); NEUT % 70 % (31-73); PLATELET COUNT 260 x10^3/uL (140-400); RED BLOOD COUNT 3.76 x10^6/uL (3.50-5.40); RED CELL DISTRIBUTION WIDTH 14.6 % (11.5-14.5); WHITE BLOOD COUNT 5.9 x10^3/uL (4.0-11.0)
[2017-04-15 22:28] LABS: CALCIUM 8.7 mg/dL (8.5-10.1); CREATININE 1.1 mg/dL (0.6-1.0); GFR 53.2; POTASSIUM 3.7 mmol/L (3.5-5.1)
[2017-04-15 22:34] LABS: ALBUMIN 3.6 g/dL (3.4-5.0); TOTAL BILIRUBIN 0.1 mg/dL (0.2-1.0); TOTAL PROTEIN 7.3 g/dL (6.4-8.2)
[2017-04-15] MEDS ORDERED: IOHEXOL 300 MG/ML 75 ML VIAL IV ONE (22:45)
[2017-04-15] MEDS ORDERED: CONTRAST GIVEN MC PRN (22:45)
--- NOTE | 2017-04-15 22:46 | PHYS DOC ---
Past Medical History Past Medical History: Anemia, Anxiety, Constipation, Depression, GERD, High Cholesterol, Other Additional Past Medical Histor: rectal ulcers,endometrosis,c.diff, CHRONIC RECTAL BLEEDING, NARCOTIC ABUSE Past Surgical History: Appendectomy, Cholecystectomy, Hysterectomy, Other Additional Past Surgical Histo: rectal sx Alcohol Use: Occasionally Drug Use: None Adult General Chief Complaint Chief Complaint: ABDOMINAL PAIN HPI HPI Patient is a 46 year old female brought to the ED by her father with the complaint of abdominal pain. The patient has been seen multiple times for abdominal pain in the ED. She states that this pain is different, it is more in the middle of her abdomen and goes through to her back. She's had nausea but no vomiting, no diarrhea. I saw her about a week ago for this same pain, and because of her frequent visits for pain and several CT scans I at that time elected to not CT scan on that visit. I had diagnosed the patient with possible constipation, advised her to use MiraLAX. The patient told me that she took a lot of MiraLAX and had "lots of stool" but that did not change her pain at all. She's had nausea but no vomiting. Denies fever. PCP [facility] Review of Systems Review of Systems Constitutional: Denies fever or chills [] HENT: Denies nasal congestion or sore throat [] Respiratory: Denies cough or shortness of breath GI: As in history of present illness : Denies dysuria or hematuria [] Musculoskeletal: Denies back pain or joint pain [] Integument: Denies rash or skin lesions [] Neurologic: Denies headache, focal weakness or sensory changes [] Current Medications Current Medications Current Medications Medications (Trade) Dose Ordered Sig/Ga Start Time Stop Time Status Last Admin Dose Admin Fentanyl Citrate (Fentanyl 2ml Vial) 50 mcg PRN Q15MIN PRN 04/15/17 21:15 04/16/17 21:14 04/15/17 22:19 50 MCG Info (Do NOT chart on this entry -- for MONITORING) 1 each PRN DAILY PRN 04/15/17 22:45 04/17/17 22:44 Iohexol (Omnipaque 300 Mg/ml) 75 ml 1X ONCE 04/15/17 22:45 04/15/17 22:46 DC 04/15/17 22:44 75 ML Sodium Chloride 1,000 ml @ 1,000 mls/hr Q1H 04/15/17 21:01 04/15/17 22:00 DC 04/15/17 22:17 1,000 MLS/HR Allergies Allergies Allergies Coded Allergies Type Severity Reaction Last Updated Verified cephalexin Allergy Intermediate rash, red ears 08/14/16 No prochlorperazine Allergy Intermediate 11/24/16 Yes Physical Exam Physical Exam Constitutional: Obese female, appears uncomfortable, slightly tearful, alert and mentating normally HENT: Normocephalic, atraumatic, bilateral external ears normal, nose normal. [] Eyes: conjunctiva normal, no discharge. [] Neck: Normal range of motion, no stridor. [] Cardiovascular:Heart rate regular rhythm, no murmur [] Lungs & Thorax: Bilateral breath sounds clear to auscultation [] Abdomen: Mildly distended, bowel sounds quiet and not obstructive sounding, no significant increase in tympany, tenderness to palpation generalized, worse to the left and above the umbilicus, no rebound or guarding Skin: Warm, dry, no erythema, no rash. [] Extremities: No tenderness, no cyanosis, no clubbing, ROM intact, no edema. [] Neurologic: Alert and oriented X 3, normal motor function, normal sensory function, no focal deficits noted. [] Current Patient Data Vital Signs Vital Signs Date Time Temp Pulse Resp B/P (MAP) Pulse Ox O2 Delivery O2 Flow Rate FiO2 04/15/17 22:19 16 04/15/17 20:00 98.5 105 143/86 (105) 98 Room Air 98.5 Lab Values Laboratory Tests Test 04/15/17 22:13 04/15/17 22:50 White Blood Count 5.9 x10^3/uL (4.0-11.0) Red Blood Count 3.76 x10^6/uL (3.50-5.40) Hemoglobin 10.5 g/dL (12.0-15.5) L Hematocrit 31.7 % (36.0-47.0) L Mean Corpuscular Volume 84 fL (79-100) Mean Corpuscular Hemoglobin 28 pg (25-35) Mean Corpuscular Hemoglobin Concent 33 g/dL (31-37) Red Cell Distribution Width 14.6 % (11.5-14.5) H Platelet Count 260 x10^3/uL (140-400) Neutrophils (%) (Auto) 70 % (31-73) Lymphocytes (%) (Auto) 17 % (24-48) L Monocytes (%) (Auto) 8 % (0-9) Eosinophils (%) (Auto) 5 % (0-3) H Basophils (%) (Auto) 0 % (0-3) Neutrophils # (Auto) 4.1 x10^3uL (1.8-7.7) Lymphocytes # (Auto) 1.0 x10^3/uL (1.0-4.8) Monocytes # (Auto) 0.4 x10^3/uL (0.0-1.1) Eosinophils # (Auto) 0.3 x10^3/uL (0.0-0.7) Basophils # (Auto) 0.0 x10^3/uL (0.0-0.2) Sodium Level 143 mmol/L (136-145) Potassium Level 3.7 mmol/L (3.5-5.1) Chloride Level 105 mmol/L (98-107) Carbon Dioxide Level 26 mmol/L (21-32) Anion Gap 12 (6-14) Blood Urea Nitrogen 12 mg/dL (7-20) Creatinine 1.1 mg/dL (0.6-1.0) H Estimated GFR (Cockcroft-Gault) 53.2 BUN/Creatinine Ratio 11 (6-20) Glucose Level 146 mg/dL (70-99) H Calcium Level 8.7 mg/dL (8.5-10.1) Total Bilirubin 0.1 mg/dL (0.2-1.0) L Aspartate Amino Transferase (AST) 18 U/L (15-37) Alanine Aminotransferase (ALT) 34 U/L (14-59) Alkaline Phosphatase 131 U/L (46-116) H Total Protein 7.3 g/dL (6.4-8.2) Albumin 3.6 g/dL (3.4-5.0) Albumin/Globulin Ratio 1.0 (1.0-1.7) Lipase 127 U/L (73-393) Urine Collection Type Unknown Urine Color Yellow Urine Clarity Clear Urine pH 6.5 Urine Specific [place] >=1.030 Urine Protein 30 mg/dL (NEG-TRACE) Urine Glucose (UA) Negative mg/dL (NEG) Urine Ketones (Stick) Trace mg/dL (NEG) Urine Blood Negative (NEG) Urine Nitrite Negative (NEG) Urine Bilirubin Negative (NEG) Urine Urobilinogen Dipstick 0.2 mg/dL (0.2 mg/dL) Urine Leukocyte Esterase Small (NEG) Urine RBC Occ /HPF (0-2) Urine WBC 11-20 /HPF (0-4) Urine Squamous Epithelial Cells Occ /LPF Urine Bacteria Moderate /HPF (0-FEW) Urine Mucus Marked /LPF Laboratory Tests 04/15/17 22:13 Laboratory Tests 04/15/17 22:13 EKG EKG [] Radiology/Procedures Radiology/Procedures CT scan of the abdomen and pelvis read by the radiologist. No acute abnormality. [] Course & Med Decision Making Course & Med Decision Making Pertinent Labs and Imaging studies reviewed. (See chart for details) 46-year-old female presents to the ED with abdominal pain. She has had multiple abdominal pain visits. [employer] informed me that she has had 10 CT scans this year. I discussed with the patient that I'm concerned that she has had a lot of CT scans and that is a lot of radiation. The patient insists that this abdominal pain is different than her usual pains, usually it is left lower quadrant but this pain is more of a. Umbilical to left upper quadrant pain. She insists that the pain is different and more severe in that it goes through to her back. I did just see her for this a few days ago and gave my best guess of constipation with "gas pains" and had her take MiraLAX which she has this she did take without any relief of the pain but with a large amount of stool output. I feel there is really no choice today but to perform a CT scan with the patient complaining of severe pain. I did discuss the risks of radiation exposure with the patient. The patient was given pain and nausea medications and CT scan was obtained. CT showed no acute abnormality. I discussed with the patient my concerns that she has had 11 CT scans in the past year. I strongly recommended that she seek some type of pain management or other care and avoid continuing to return to the emergency department with the complaint of abdominal pain when she has been thoroughly evaluated multiple times. I discussed with her my concerns about frequent opiate use exacerbating abdominal pain and exacerbating related symptoms such as constipation. [] Dragon Disclaimer Dragon Disclaimer This electronic medical record was generated, in whole or in part, using a voice recognition dictation system. Departure Departure Impression: Primary Impression: Abdominal pain Disposition: HOME, SELF-CARE Condition: STABLE Referrals: UNKNOWN PCP NAME (PCP) Patient Instructions: Abdominal Pain (Nonspecific) Additional Instructions: As we discussed, labs and CT scan did not reveal a cause for your abdominal pain. I am concerned that you have had 11 CT scans this year. That is a lot of radiation to your abdominal organs. As we discussed, since we have not been able to demonstrate a cause for your abdominal pain, at this point, I recommend treating your pain as a chronic pain that may need to be managed rather than abdominal pain that needs to be treated. We have not been able to demonstrate any lab or CT abnormality that could be treated by a specialist. I recommend discussing with your doctor whether or not pain management referral might help. As we discussed, I don't believe that opiate medications are indicated in this case, and in fact, can make the situation worse. VENUS TEJADA MD Apr 15, 2017 22:46
[2017-04-15 22:50] VITALS: BP 138/80
[2017-04-15 22:58] LABS: BILIRUBIN,URINE NEGATIVE (NEG); GLUCOSE,URINE NEGATIVE (NEG); NITRITE,URINE NEGATIVE (NEG); PH,URINE 6.5; PROTEIN,URINE 30 mg/dL (NEG-TRACE); UROBILINOGEN,URINE 0.2 mg/dL (0.2 mg/dL)
--- NOTE | 2017-04-15 23:02 | RAD ---
CT ABD PELV W/ IV CONTRST ONLY dated 04/15/2017 9:01 PM Indication: Severe abdominal pain radiating to back Comparison: 12/30/2016 Technique: Contiguous axial imaging of the abdomen and pelvis performed after the administration of 60 cc Isovue-370. One or more of the following individualized dose reduction techniques were utilized for this examination: 1. Automated exposure control 2. Adjustment of the mA and/or kV according to patient size 3. Use of iterative reconstruction technique Findings: Limited images of lung bases are clear. Heart size within normal limits. No pleural or pericardial effusion. Liver is of diffuse low density compatible with fatty infiltration. No focal hepatic mass. Biliary tree normal in caliber. The gallbladder is surgically absent. Spleen, pancreas, adrenal glands and kidneys are unremarkable. No hydronephrosis. Unopacified GI tract normal in caliber and contour. No focal bowel wall thickening. No inflammatory stranding in the mesentery. The appendix is surgically absent. No free fluid or lymphadenopathy. Abdominal aorta normal in caliber. Small supraumbilical ventral hernia containing only fat. Images of pelvis a nondistended urinary bladder. Uterus is surgically absent. No free pelvic fluid or pelvic lymphadenopathy. Bone windows show no acute findings. Mild lower lumbar spondylosis. IMPRESSION: 1. No acute abnormality of abdomen or pelvis. 2. Mild hepatic steatosis. 3. Status post cholecystectomy, appendectomy and hysterectomy. Electronically signed by: South Thompson MD (04/15/2017 10:58 PM)
[2017-04-15 23:15] LABS: BACTERIA,URINE MODERATE /HPF (0-FEW); RBC,URINE OCC /HPF (0-2); SQUAMOUS EPITHELIAL CELL,UR OCC /LPF
== END 2017-04-15 23:19 | disposition home or self-care (01) ==
LOC: ER 19:52
DX: R10.84 Generalized abdominal pain (principal); R11.0 Nausea; F41.9 Anxiety disorder, unspecified; F32.9 Major depressive disorder, single episode, unspecified; K21.9 Gastro-esophageal reflux disease without esophagitis; E78.00 Pure hypercholesterolemia, unspecified; Z90.49 Acquired absence of other specified parts of digestive tract; Z90.710 Acquired absence of both cervix and uterus; Z88.1 Allergy status to other antibiotic agents; Z88.8 Allergy status to other drugs, medicaments and biological substances
CPT/HCPCS: 36415; 74177; 80053; 81001; 83690; 85027; 87086; 96361; 96374; 99285; J3010; J7030; Q9967

== ENCOUNTER 2017-04-29 19:29 | Emergency (ER) | payer BC ==
[~2017-04-29] VITALS: Ht 165.1 cm; Wt 113.4 kg
[2017-04-29 19:44] VITALS: BP 178/97
[2017-04-29] MEDS ORDERED: HYDROcodone/APAP 5/325MG 1 TAB TABLET PO ONE (21:00)
[2017-04-29] MEDS ORDERED: IV NORMAL SALINE 1000ML BAG 1,000 ML IV ONE (21:00)
--- NOTE | 2017-04-30 00:39 | PHYS DOC ---
Past Medical History Past Medical History: Anemia, Anxiety, Constipation, Depression, GERD, High Cholesterol, Other Additional Past Medical Histor: rectal ulcers,endometrosis,c.diff, CHRONIC RECTAL BLEEDING, NARCOTIC ABUSE Past Surgical History: Appendectomy, Cholecystectomy, Hysterectomy, Other Additional Past Surgical Histo: rectal sx Alcohol Use: Occasionally Drug Use: None Adult General Chief Complaint Chief Complaint: ABDOMINAL PAIN HPI HPI 46-year-old female well known to our emergency medicine service for frequent visits for chronic rectal pain now presents to the emergency department complaining of chronic rectal pain. She states she has ulcers in her rectum which sometimes cause some bleeding in her stool. Tonight she does not have any pain medicine and is requesting pain control. These symptoms are typical for her she is not having any active bleeding. She has no abdominal or pelvic pain. Patient denies fevers chills sweats or shaking chills. She has normal bowel and bladder habits except a small amount of blood in her stool. She states she takes ibuprofen at home but does not have any narcotics. Pain is not worse with movement Review of Systems Review of Systems Constitutional: Denies fever or chills [] Eyes: Denies change in visual acuity, redness, or eye pain [] HENT: Denies nasal congestion or sore throat [] Respiratory: Denies cough or shortness of breath [] Cardiovascular: No additional information not addressed in HPI [] GI: Denies abdominal pain, nausea, vomiting, bloody stools or diarrhea [] : Denies dysuria or hematuria [] Musculoskeletal: Denies back pain or joint pain [] Integument: Denies rash or skin lesions [] Neurologic: Denies headache, focal weakness or sensory changes [] Endocrine: Denies polyuria or polydipsia [] Current Medications Current Medications Current Medications Medications (Trade) Dose Ordered Sig/Ga Start Time Stop Time Status Last Admin Dose Admin Acetaminophen/ Hydrocodone Bitart (Lortab 5/325) 1 tab 1X ONCE 04/29/17 21:00 04/29/17 21:01 DC Sodium Chloride 1,000 ml @ 1,000 mls/hr 1X ONCE 04/29/17 21:00 04/29/17 21:59 DC 04/29/17 21:10 1,000 MLS/HR Allergies Allergies Allergies Coded Allergies Type Severity Reaction Last Updated Verified cephalexin Allergy Intermediate rash, red ears 08/14/16 No prochlorperazine Allergy Intermediate 11/24/16 Yes Physical Exam Physical Exam Well appearing female no acute distress nontender abdomen and pelvis. Benign exam. Constitutional: Well developed, well nourished, no acute distress, non-toxic appearance. [] HENT: Normocephalic, atraumatic, bilateral external ears normal, oropharynx moist, no oral exudates, nose normal. [] Eyes: PERRLA, EOMI, conjunctiva normal, no discharge. [] Neck: Normal range of motion, no tenderness, supple, no stridor. [] Cardiovascular:Heart rate regular rhythm, no murmur [] Lungs & Thorax: Bilateral breath sounds clear to auscultation [] Abdomen: Bowel sounds normal, soft, no tenderness, no masses, no pulsatile masses. [] Skin: Warm, dry, no erythema, no rash. [] Back: No tenderness, no CVA tenderness. [] Extremities: No tenderness, no cyanosis, no clubbing, ROM intact, no edema. [] Neurologic: Alert and oriented X 3, normal motor function, normal sensory function, no focal deficits noted. [] Psychologic: Affect normal, judgement normal, mood normal. [] Current Patient Data Vital Signs Vital Signs Date Time Temp Pulse Resp B/P (MAP) Pulse Ox O2 Delivery O2 Flow Rate FiO2 04/29/17 19:44 98.7 101 20 178/97 (124) 98 Room Air 98.7 EKG EKG [] Radiology/Procedures Radiology/Procedures [] Course & Med Decision Making Course & Med Decision Making Pertinent Labs and Imaging studies reviewed. (See chart for details) Patient with chronic rectal pain with no change in symptoms or presentation today by her description. Vital signs unremarkable. She is well-appearing. Offered patient [place] she refused eating she wanted Dilaudid. Patient then eloped from the emergency department [] Dragon Disclaimer Dragon Disclaimer This electronic medical record was generated, in whole or in part, using a voice recognition dictation system. Departure Departure Impression: Primary Impression: Rectal pain Additional Impression: Drug-seeking behavior Disposition: AGAINST MEDICAL ADVICE Condition: STABLE Problem Qualifiers MAGUE SANCHEZ MD Apr 30, 2017 00:39
== END 2017-04-29 22:15 | disposition left against medical advice (07) ==
LOC: ER 19:29
DX: G89.29 Other chronic pain (principal); K62.89 Other specified diseases of anus and rectum; K64.9 Unspecified hemorrhoids; K62.6 Ulcer of anus and rectum; K21.9 Gastro-esophageal reflux disease without esophagitis; E78.00 Pure hypercholesterolemia, unspecified; Z98.890 Other specified postprocedural states; Z90.49 Acquired absence of other specified parts of digestive tract; Z90.710 Acquired absence of both cervix and uterus; Z88.1 Allergy status to other antibiotic agents; Z88.8 Allergy status to other drugs, medicaments and biological substances
CPT/HCPCS: 96360; 99284; J7030

== ENCOUNTER 2017-05-17 19:10 | Emergency (ER) | payer BC ==
[~2017-05-17] VITALS: Ht 162.6 cm; Wt 113.4 kg
[2017-05-17 19:16] VITALS: BP 151/94
--- NOTE | 2017-05-17 23:32 | PHYS DOC ---
Past Medical History Past Medical History: Anemia, Anxiety, Constipation, Depression, GERD, High Cholesterol, Other Additional Past Medical Histor: rectal ulcers,endometrosis,c.diff, CHRONIC RECTAL BLEEDING, NARCOTIC ABUSE Past Surgical History: Appendectomy, Cholecystectomy, Hysterectomy, Other Additional Past Surgical Histo: rectal sx Alcohol Use: Occasionally Drug Use: None Adult General Chief Complaint Chief Complaint: ABDOMINAL PAIN HPI HPI Patient is a 46 year old female who presents with rectal pain. She has history of chronic rectal pain & bleeding with numerous ED visits this year. She states she started having rectal pains again yesterday with small amount of blood on toilet paper with wiping. She denies fevers/chills, abdominal pain, diarrhea, constipation, melena. She has not followed up with a physician since her last visit to the ED on 04/29. Denies use of blood thinners. Review of Systems Review of Systems Constitutional: Denies fever or chills HENT: Denies nasal congestion or sore throat Respiratory: Denies cough or shortness of breath Cardiovascular: Denies chest pain GI: Denies abdominal pain, nausea, vomiting, or diarrhea, reports rectal pain : Denies dysuria or hematuria Musculoskeletal: Denies back pain or joint pain Integument: Denies rash Neurologic: Denies headache Allergies Allergies Allergies Coded Allergies Type Severity Reaction Last Updated Verified cephalexin Allergy Intermediate rash, red ears 08/14/16 No prochlorperazine Allergy Intermediate 11/24/16 Yes Physical Exam Physical Exam Constitutional: obese, no acute distress, non-toxic appearance. HENT: Normocephalic, atraumatic, bilateral external ears normal, oropharynx moist, nose normal. Eyes: conjunctiva normal, no discharge. Cardiovascular: RRR, no murmurs, no edema. Lungs & Thorax: LCTAB, no wheezing, no respiratory distress. Abdomen: soft, nontender, nondistended. Skin: Warm, dry, no erythema, no rash. Back: No tenderness. Extremities: No tenderness, no edema. Neurologic: Alert and oriented X 3, no focal deficits noted. Psychologic: Affect normal, judgement normal, mood normal. Current Patient Data Vital Signs Vital Signs Date Time Temp Pulse Resp B/P (MAP) Pulse Ox O2 Delivery O2 Flow Rate FiO2 05/17/17 19:16 98.3 111 18 151/94 (113) 96 Room Air 98.3 EKG EKG [] Radiology/Procedures Radiology/Procedures [] Course & Med Decision Making Course & Med Decision Making Pertinent Labs and Imaging studies reviewed. (See chart for details) The patient presents with rectal pain. She denies active rectal bleeding. Discussed management of chronic pain; encouraged her to see a colorectal surgeon or primary care. Offered rectal lidocaine & anusol. She states she already takes stool softeners. She eloped from the department after I completed my exam. [] Dragon Disclaimer Dragon Disclaimer This electronic medical record was generated, in whole or in part, using a voice recognition dictation system. Departure Departure Impression: Primary Impression: Rectal pain Disposition: 07 AGAINST MEDICAL ADVICE Condition: STABLE LETA LIRA MD May 17, 2017 23:32
== END 2017-05-17 19:30 | disposition left against medical advice (07) ==
LOC: ER 19:10
DX: K62.89 Other specified diseases of anus and rectum (principal); E78.00 Pure hypercholesterolemia, unspecified; K21.9 Gastro-esophageal reflux disease without esophagitis; F11.10 Opioid abuse, uncomplicated; Z90.49 Acquired absence of other specified parts of digestive tract; Z90.710 Acquired absence of both cervix and uterus; Z88.8 Allergy status to other drugs, medicaments and biological substances; Z88.1 Allergy status to other antibiotic agents
CPT/HCPCS: 99281

== ENCOUNTER 2017-05-31 19:34 | Emergency (ER) | payer BC ==
[~2017-05-31] VITALS: Ht 162.6 cm; Wt 113.4 kg
[2017-05-31 20:30] VITALS: BP 151/89
--- NOTE | 2017-05-31 20:45 | PHYS DOC ---
Past Medical History Past Medical History: Anemia, Anxiety, Constipation, Depression, GERD, High Cholesterol, Other Additional Past Medical Histor: rectal ulcers,endometrosis,c.diff, CHRONIC RECTAL BLEEDING, NARCOTIC ABUSE Past Surgical History: Appendectomy, Cholecystectomy, Hysterectomy, Other Additional Past Surgical Histo: rectal sx Alcohol Use: Occasionally Drug Use: None Adult General Chief Complaint Chief Complaint: ABDOMINAL PAIN HPI HPI Patient is a 46 year old female who presents to the ED with the complaint of abdominal pain, brought to the ED by her son. Patient describes the pain on the left side of her abdomen as "twisting, stabbing, and shooting through to her back". It started at about 2:00 today. When it started it wasn't this bad. She' s had nausea but no vomiting. Since it started she did eat a peanut butter and jelly sandwich. She had a bowel movement about 4:00 which was normal, also had had a bowel movement this morning. She had no worsening or improvement of her pain after the bowel movement. She took some Tylenol without relief. The patient has been seen many, many times in the emergency department for abdominal pain. She states that this pain is "not really similar" to previous episodes of abdominal pain. She does take MiraLAX about 3 times a week for constipation. She doesn't like to take MiraLAX because sometimes it makes her stools too loose. [place] [facility] [place], she has also seen a GI doctor there but cannot remember the name. Review of Systems Review of Systems Constitutional: Denies fever or chills [] Respiratory: Denies cough or shortness of breath [] Cardiovascular: Denies chest pain GI: As in history of present illness : Denies dysuria Musculoskeletal: Denies back pain or joint pain [] Integument: Denies rash or skin lesions [] Allergies Allergies Allergies Coded Allergies Type Severity Reaction Last Updated Verified cephalexin Allergy Intermediate rash, red ears 08/14/16 No prochlorperazine Allergy Intermediate 11/24/16 Yes Physical Exam Physical Exam Constitutional: Obese female, alert, mentating normally, no acute distress HENT: Normocephalic, atraumatic, bilateral external ears normal, nose normal. [ ] Eyes: conjunctiva normal, no discharge. [] Neck: Normal range of motion, no stridor. [] Cardiovascular:Heart rate regular rhythm, no murmur [] Lungs & Thorax: Bilateral breath sounds clear to auscultation [] Abdomen: Obese, soft, no mass, no pulsatile mass. Bowel sounds normal. Tender to palpation over the left abdomen, no guarding or rebound. Skin: Warm, dry, no erythema, no rash. [] Extremities: No tenderness, no cyanosis, no clubbing, ROM intact, no edema. [] Neurologic: Alert and oriented X 3, normal motor function, normal sensory function, no focal deficits noted. [] Current Patient Data Vital Signs Vital Signs Date Time Temp Pulse Resp B/P (MAP) Pulse Ox O2 Delivery O2 Flow Rate FiO2 05/31/17 20:30 98 14 151/89 (109) 95 Room Air 05/31/17 19:44 99.3 99.3 EKG EKG [] Radiology/Procedures Radiology/Procedures [] Course & Med Decision Making Course & Med Decision Making Pertinent Labs and Imaging studies reviewed. (See chart for details) 46-year-old female presents to the ED for abdominal pain. I have seen the patient in the past and her description and location are identical to a previous evaluation, however the patient states that today's pain is different. I reviewed the patient's medical record. The patient has had 9 CT scans of the abdomen and pelvis in the past year here at [facility]. I talked with the patient about my concern for radiation. The patient understands and she doesn't really want another CT scan, she just wants IV opiates for pain. I discussed at length with the patient that IV opiates for abdominal pain are not indicated and also could do more harm than good. I explained the reasoning for this. The patient was unhappy and would like for her pain to be treated with an opiate. Again, I explained my reasoning and encouraged her to treat her abdominal pain with a laxative, see instructions for plan. [] Dragon Disclaimer Dragon Disclaimer This electronic medical record was generated, in whole or in part, using a voice recognition dictation system. Departure Departure Impression: Primary Impression: Chronic abdominal pain Additional Impression: Constipation Disposition: 01 HOME, SELF-CARE Condition: STABLE Referrals: UNKNOWN PCP NAME (PCP) Patient Instructions: Abdominal Pain, [id number], Constipation, Adult, Easy- to-Read Additional Instructions: As we discussed, you have had 9 CT scans of your abdomen and pelvis in the past year. I'm concerned that you have had a lot of radiation exposure and whenever possible we should avoid doing more x-rays or especially CT scans because this can damage your organs and cause cancer. I recommend that you take a dose of MiraLAX every 6 hours until you have good "results". The type of pain that you are experiencing can be caused by constipation and "gas pains". Problem Qualifiers VENUS TEJADA MD May 31, 2017 20:45
== END 2017-05-31 20:41 | disposition home or self-care (01) ==
LOC: ER 19:34
DX: G89.29 Other chronic pain (principal); R10.9 Unspecified abdominal pain; R11.0 Nausea; E78.00 Pure hypercholesterolemia, unspecified; K21.9 Gastro-esophageal reflux disease without esophagitis; Z90.49 Acquired absence of other specified parts of digestive tract; Z90.710 Acquired absence of both cervix and uterus; Z98.890 Other specified postprocedural states; Z87.19 Personal history of other diseases of the digestive system; F19.10 Other psychoactive substance abuse, uncomplicated; Z88.1 Allergy status to other antibiotic agents; Z88.8 Allergy status to other drugs, medicaments and biological substances
CPT/HCPCS: 99284

== ENCOUNTER 2017-06-03 21:00 | Emergency (ER) | payer BC ==
[~2017-06-03] VITALS: Ht 162.6 cm; Wt 113.4 kg
[2017-06-03 21:06] VITALS: BP 172/106
[2017-06-03] MEDS ORDERED: LIDO:MAALOX:DONNATAL 1:1:1 15 ML SINGLE DOSE SWSW ONE (21:45)
[2017-06-03 22:14] LABS: BILIRUBIN,URINE NEGATIVE (NEG); GLUCOSE,URINE NEGATIVE (NEG); NITRITE,URINE NEGATIVE (NEG); PH,URINE 6.5; PROTEIN,URINE NEGATIVE (NEG-TRACE); UROBILINOGEN,URINE 0.2 mg/dL (0.2 mg/dL)
[2017-06-03 22:19] LABS: BACTERIA,URINE FEW /HPF (0-FEW); RBC,URINE OCC /HPF (0-2); SQUAMOUS EPITHELIAL CELL,UR FEW /LPF
[2017-06-03] MEDS ORDERED: KETOROLAC TROMETHAMINE 30 MG/ML INJ. IV ONE (22:30)
[2017-06-03] MEDS ORDERED: ONDANSETRON PF 4 MG/2 ML VIAL. IV ONE (22:30)
[2017-06-03 22:44] LABS: BASO % 1 % (0-3); EOS % 3 % (0-3); HEMATOCRIT 34.8 % (36.0-47.0); HEMOGLOBIN 11.5 g/dL (12.0-15.5); LYMPH # 0.8 x10^3/uL (1.0-4.8); LYMPH % 14 % (24-48); MEAN CORPUSCULAR HEMOGLOBIN 30 pg (25-35); MEAN CORPUSCULAR HGB CONC 33 g/dL (31-37); MEAN CORPUSCULAR VOLUME 89 fL (79-100); MONO % 7 % (0-9); NEUT % 76 % (31-73); PLATELET COUNT 243 x10^3/uL (140-400); RED CELL DISTRIBUTION WIDTH 15.9 % (11.5-14.5); WHITE BLOOD COUNT 6.1 x10^3/uL (4.0-11.0)
[2017-06-03 22:58] LABS: CALCIUM 9.1 mg/dL (8.5-10.1); CREATININE 0.8 mg/dL (0.6-1.0); GFR 76.9; POTASSIUM 3.9 mmol/L (3.5-5.1)
[2017-06-03 23:05] LABS: ALBUMIN 3.7 g/dL (3.4-5.0); TOTAL BILIRUBIN 0.2 mg/dL (0.2-1.0); TOTAL PROTEIN 7.4 g/dL (6.4-8.2)
--- NOTE | 2017-06-04 01:59 | ED.ADGEN ---
Past Medical History Past Medical History: Anemia, Anxiety, Constipation, Depression, GERD, High Cholesterol, Other Additional Past Medical Histor: rectal ulcers,endometrosis,c.diff, CHRONIC RECTAL BLEEDING, NARCOTIC ABUSE Past Surgical History: Appendectomy, Cholecystectomy, Hysterectomy, Other Additional Past Surgical Histo: rectal sx Alcohol Use: Occasionally Drug Use: None Adult General Chief Complaint Chief Complaint: ABDOMINAL PAIN HPI HPI Patient is a 46 year old woman, history of chronic abdominal pain, C. difficile , narcotic abuse, anxiety, constipation, who presents the emergency department with a complaint of abdominal pain. Patient states that is located in her upper abdomen, a sharp and stabbing in nature, associated with nausea, no vomiting or diarrhea, states her last bowel was yesterday and was normal. No fevers or chills, no chest pain or shortness of breath. Patient was evaluated in the emergency department 4 days ago for the same complaint, at that time after IV was placed, patient left AGAINST MEDICAL ADVICE, without waiting for laboratory studies or imaging to be obtained. Patient denies any injuries, any recent travel or surgery, states she has not taken any medications for the symptoms prior to coming to the ED. Review of Systems Review of Systems Constitutional: Denies fever or chills. [] Eyes: Denies change in visual acuity. [] HENT: Denies nasal congestion or sore throat. [] Respiratory: Denies cough or shortness of breath. [] Cardiovascular: Denies chest pain or edema. [] GI: Sharp and cramping upper abdominal pain, nausea, no vomiting, bloody stools or diarrhea. : Denies dysuria. [] Musculoskeletal: Denies back pain or joint pain. [] Integument: Denies rash. [] Neurologic: Denies headache, focal weakness or sensory changes. [] Endocrine: Denies polyuria or polydipsia. [] Lymphatic: Denies swollen glands. [] Psychiatric: Denies depression or anxiety. [] Current Medications Current Medications Current Medications Medications (Trade) Dose Ordered Sig/Ga Start Time Stop Time Status Last Admin Dose Admin Ketorolac Tromethamine (Toradol) 10 mg 1X ONCE 06/03/17 22:30 06/03/17 22:31 DC Multi-Ingredient Mouthwash/Gargle (Gi Cocktail Single Dose) 15 ml 1X ONCE 06/03/17 21:45 06/03/17 21:46 DC 06/03/17 22:06 15 ML Ondansetron HCl (Zofran) 4 mg 1X ONCE 06/03/17 22:30 06/03/17 22:31 DC Allergies Allergies Allergies Coded Allergies Type Severity Reaction Last Updated Verified cephalexin Allergy Intermediate rash, red ears 08/14/16 No prochlorperazine Allergy Intermediate 11/24/16 Yes Physical Exam Physical Exam Constitutional: Well developed, well nourished, no acute distress, non-toxic appearance. [] HENT: Normocephalic, atraumatic, bilateral external ears normal, oropharynx moist, no oral exudates, nose normal. [] Eyes: PERRLA, EOMI, conjunctiva normal, no discharge. [] Neck: Normal range of motion, no tenderness, supple, no stridor. [] Cardiovascular:Heart rate regular rhythm, no murmur, S1, S2, no rubs or gallops. [] Lungs & Thorax: Bilateral breath sounds clear to auscultation [] Abdomen: Bowel sounds normal, soft, mild initial patient in the upper abdomen epigastric region and left upper quadrant, negative Pappas sign, no rebound, rigidity, no guarding, no masses, no pulsatile masses. [] Skin: Warm, dry, no erythema, no rash. [] Back: No tenderness, no CVA tenderness. [] Extremities: No tenderness, no cyanosis, no clubbing, ROM intact, no edema. [] Neurologic: Alert and oriented X 3, normal motor function, normal sensory function, no focal deficits noted. [] Psychologic: Affect normal, judgement normal, mood normal. [] Current Patient Data Vital Signs Vital Signs Date Time Temp Pulse Resp B/P (MAP) Pulse Ox O2 Delivery O2 Flow Rate FiO2 06/03/17 21:06 98.0 113 20 172/106 (128) 96 Room Air 98.0 Lab Values Laboratory Tests Test 06/03/17 22:04 06/03/17 22:35 Urine Collection Type Unknown Urine Color Yellow Urine Clarity Clear Urine pH 6.5 Urine Specific [place] 1.015 Urine Protein Negative mg/dL (NEG-TRACE) Urine Glucose (UA) Negative mg/dL (NEG) Urine Ketones (Stick) Negative mg/dL (NEG) Urine Blood Negative (NEG) Urine Nitrite Negative (NEG) Urine Bilirubin Negative (NEG) Urine Urobilinogen Dipstick 0.2 mg/dL (0.2 mg/dL) Urine Leukocyte Esterase Small (NEG) Urine RBC Occ /HPF (0-2) Urine WBC 1-4 /HPF (0-4) Urine Squamous Epithelial Cells Few /LPF Urine Bacteria Few /HPF (0-FEW) Urine Mucus Slight /LPF White Blood Count 6.1 x10^3/uL (4.0-11.0) Red Blood Count 3.90 x10^6/uL (3.50-5.40) Hemoglobin 11.5 g/dL (12.0-15.5) L Hematocrit 34.8 % (36.0-47.0) L Mean Corpuscular Volume 89 fL (79-100) Mean Corpuscular Hemoglobin 30 pg (25-35) Mean Corpuscular Hemoglobin Concent 33 g/dL (31-37) Red Cell Distribution Width 15.9 % (11.5-14.5) H Platelet Count 243 x10^3/uL (140-400) Neutrophils (%) (Auto) 76 % (31-73) H Lymphocytes (%) (Auto) 14 % (24-48) L Monocytes (%) (Auto) 7 % (0-9) Eosinophils (%) (Auto) 3 % (0-3) Basophils (%) (Auto) 1 % (0-3) Neutrophils # (Auto) 4.6 x10^3uL (1.8-7.7) Lymphocytes # (Auto) 0.8 x10^3/uL (1.0-4.8) L Monocytes # (Auto) 0.4 x10^3/uL (0.0-1.1) Eosinophils # (Auto) 0.2 x10^3/uL (0.0-0.7) Basophils # (Auto) 0.0 x10^3/uL (0.0-0.2) Sodium Level 142 mmol/L (136-145) Potassium Level 3.9 mmol/L (3.5-5.1) Chloride Level 105 mmol/L (98-107) Carbon Dioxide Level 27 mmol/L (21-32) Anion Gap 10 (6-14) Blood Urea Nitrogen 12 mg/dL (7-20) Creatinine 0.8 mg/dL (0.6-1.0) Estimated GFR (Cockcroft-Gault) 76.9 BUN/Creatinine Ratio 15 (6-20) Glucose Level 118 mg/dL (70-99) H Calcium Level 9.1 mg/dL (8.5-10.1) Total Bilirubin 0.2 mg/dL (0.2-1.0) Aspartate Amino Transferase (AST) 15 U/L (15-37) Alanine Aminotransferase (ALT) 33 U/L (14-59) Alkaline Phosphatase 125 U/L (46-116) H Total Protein 7.4 g/dL (6.4-8.2) Albumin 3.7 g/dL (3.4-5.0) Albumin/Globulin Ratio 1.0 (1.0-1.7) Lipase 121 U/L (73-393) Laboratory Tests 06/03/17 22:35 Laboratory Tests 06/03/17 22:35 EKG EKG Not indicated. [] Radiology/Procedures Radiology/Procedures Declined. [] Course & Med Decision Making Course & Med Decision Making Pertinent Labs and Imaging studies reviewed. (See chart for details) Patient received a GI cocktail in the ED, she states did not help. Vital signs within normal limits, patient with no emesis in the ED. Discussion at bedside with patient regarding evaluation, discuss appropriateness of obtaining laboratory studies, and acute abdominal series for evaluation with the patient describes "new pain", also discussed with patient that she may receive antiemetics and pain medication, but narcotic medications are not appropriate part of care at this point, patient does have history of narcotic abuse, and concern for drug-seeking behavior. During our discussion, patient voiced agreement with plan as stated, however after I left the room, and placed orders as discussed, patient did elope from the emergency department before any additional evaluation was obtained. Dragon Disclaimer Dragon Disclaimer This electronic medical record was generated, in whole or in part, using a voice recognition dictation system. Departure Impression: Primary Impression: Drug-seeking behavior Additional Impressions: Patient left before treatment completed Left against medical advice Disposition: 07 AGAINST MEDICAL ADVICE Condition: STABLE Problem Qualifiers NAI CORREIA DO Jun 04, 2017 01:59
== END 2017-06-03 22:56 | disposition left against medical advice (07) ==
LOC: ER 21:00
DX: Z76.5 Malingerer [conscious simulation] (principal); R11.0 Nausea; R10.12 Left upper quadrant pain; R10.13 Epigastric pain; F41.9 Anxiety disorder, unspecified; F32.9 Major depressive disorder, single episode, unspecified; K21.9 Gastro-esophageal reflux disease without esophagitis; E78.00 Pure hypercholesterolemia, unspecified; G89.29 Other chronic pain; F11.10 Opioid abuse, uncomplicated; Z90.49 Acquired absence of other specified parts of digestive tract; Z90.710 Acquired absence of both cervix and uterus; Z88.1 Allergy status to other antibiotic agents; Z88.8 Allergy status to other drugs, medicaments and biological substances
CPT/HCPCS: 36415; 80053; 81001; 83690; 85027; 99284-25

== ENCOUNTER 2017-07-17 19:52 | Emergency (ER) | payer BC ==
[~2017-07-17] VITALS: Ht 162.6 cm; Wt 113.4 kg
[~2017-07-17 19:52] MED LIST changes: +NAPR-695 PO; -NAPR375T3 PO
--- NOTE | 2017-07-17 20:56 | PHYS DOC ---
Past Medical History Past Medical History: Anemia, Anxiety, Depression, GERD, High Cholesterol Additional Past Medical Histor: rectal ulcers,endometrosis,c.diff, CHRONIC RECTAL BLEEDING, NARCOTIC ABUSE Past Surgical History: Appendectomy, Cholecystectomy, Hysterectomy Additional Past Surgical Histo: umbilical hernia repair Alcohol Use: Occasionally Drug Use: None Adult General Chief Complaint Chief Complaint: ABDOMINAL PAIN HPI HPI Patient is a 47 year old F who presents with left lower quadrant abdominal pain. Patient states about 4 PM she started developing left lower quadrant pain that was sharp in nature and radiates to her back. Patient is nauseous with no vomiting. Patient denies any diarrhea or dysuria. Patient has had multiple abdominal surgeries. Patient denies any fevers. Patient has no other complaints. Review of Systems Review of Systems GEN: Denies fevers, chills, sweats HEENT: Denies blurred vision, sore throat CV: Denies chest pain RESP: Denies shortness of air, cough GI: Left lower quadrant abdominal pain with nausea NEURO: Denies confusion, dizziness MSK: Denies weakness, joint pain/swelling Current Medications Current Medications Current Medications Medications (Trade) Dose Ordered Sig/Ga Start Time Stop Time Status Last Admin Dose Admin Fentanyl Citrate (Fentanyl 2ml Vial) 50 mcg 1X ONCE 07/17/17 21:00 07/17/17 21:01 DC 07/17/17 21:33 50 MCG Info (Do NOT chart on this entry -- for MONITORING) 1 each PRN DAILY PRN 07/17/17 21:15 07/19/17 21:14 Iohexol (Omnipaque 300 Mg/ml) 75 ml 1X ONCE 07/17/17 21:00 07/17/17 21:02 DC 07/17/17 21:45 75 ML Ondansetron HCl (Zofran) 4 mg 1X ONCE 07/17/17 21:00 07/17/17 21:01 DC 07/17/17 21:32 4 MG Sodium Chloride 1,000 ml @ 1,000 mls/hr 1X ONCE 07/17/17 21:00 07/17/17 21:59 DC 07/17/17 21:18 1,000 MLS/HR Allergies Allergies Allergies Coded Allergies Type Severity Reaction Last Updated Verified cephalexin Allergy Intermediate rash, red ears 08/14/16 No prochlorperazine Allergy Intermediate 11/24/16 Yes Physical Exam Physical Exam GEN.: No apparent distress. Alert and oriented. HEENT: Head is normocephalic, atraumatic NECK: Supple. LUNGS: CTAB. HEART: Tachycardia, S1, S2 present. Peripheral pulses intact ABDOMEN: Soft, tenderness to palpation left lower quadrant with rebound and guarding, no abdominal distention. Positive bowel sounds. EXTREMITIES: Without any cyanosis. NEUROLOGIC: Normal speech, normal tone PSYCHIATRIC: Normal affect, normal mood. SKIN: No ulcerations Current Patient Data Vital Signs Vital Signs Date Time Temp Pulse Resp B/P (MAP) Pulse Ox O2 Delivery O2 Flow Rate FiO2 07/17/17 21:42 15 134/91 (105) 93 Room Air 07/17/17 20:38 98 07/17/17 20:24 99.3 99.3 Lab Values Laboratory Tests Test 07/17/17 20:54 White Blood Count 6.7 x10^3/uL (4.0-11.0) Red Blood Count 3.88 x10^6/uL (3.50-5.40) Hemoglobin 11.6 g/dL (12.0-15.5) L Hematocrit 33.9 % (36.0-47.0) L Mean Corpuscular Volume 88 fL (79-100) Mean Corpuscular Hemoglobin 30 pg (25-35) Mean Corpuscular Hemoglobin Concent 34 g/dL (31-37) Red Cell Distribution Width 13.9 % (11.5-14.5) Platelet Count 284 x10^3/uL (140-400) Neutrophils (%) (Auto) 74 % (31-73) H Lymphocytes (%) (Auto) 16 % (24-48) L Monocytes (%) (Auto) 6 % (0-9) Eosinophils (%) (Auto) 3 % (0-3) Basophils (%) (Auto) 1 % (0-3) Neutrophils # (Auto) 4.9 x10^3uL (1.8-7.7) Lymphocytes # (Auto) 1.1 x10^3/uL (1.0-4.8) Monocytes # (Auto) 0.4 x10^3/uL (0.0-1.1) Eosinophils # (Auto) 0.2 x10^3/uL (0.0-0.7) Basophils # (Auto) 0.1 x10^3/uL (0.0-0.2) Urine Collection Type Unknown Urine Color Yellow Urine Clarity Clear Urine pH 6.0 Urine Specific [place] 1.020 Urine Protein Negative mg/dL (NEG-TRACE) Urine Glucose (UA) Negative mg/dL (NEG) Urine Ketones (Stick) Negative mg/dL (NEG) Urine Blood Negative (NEG) Urine Nitrite Negative (NEG) Urine Bilirubin Negative (NEG) Urine Urobilinogen Dipstick 0.2 mg/dL (0.2 mg/dL) Urine Leukocyte Esterase Negative (NEG) Urine RBC 0 /HPF (0-2) Urine WBC Occ /HPF (0-4) Urine Squamous Epithelial Cells Mod /LPF Urine Bacteria Few /HPF (0-FEW) Sodium Level 142 mmol/L (136-145) Potassium Level 3.5 mmol/L (3.5-5.1) Chloride Level 105 mmol/L (98-107) Carbon Dioxide Level 27 mmol/L (21-32) Anion Gap 10 (6-14) Blood Urea Nitrogen 11 mg/dL (7-20) Creatinine 0.7 mg/dL (0.6-1.0) Estimated GFR (Cockcroft-Gault) 89.3 BUN/Creatinine Ratio 16 (6-20) Glucose Level 121 mg/dL (70-99) H Calcium Level 9.1 mg/dL (8.5-10.1) Total Bilirubin 0.2 mg/dL (0.2-1.0) Aspartate Amino Transferase (AST) 22 U/L (15-37) Alanine Aminotransferase (ALT) 38 U/L (14-59) Alkaline Phosphatase 132 U/L (46-116) H Total Protein 7.2 g/dL (6.4-8.2) Albumin 3.5 g/dL (3.4-5.0) Albumin/Globulin Ratio 0.9 (1.0-1.7) L Lipase 188 U/L (73-393) Laboratory Tests 07/17/17 20:54 Laboratory Tests 07/17/17 20:54 EKG EKG [] Radiology/Procedures Radiology/Procedures CT scan abdomen and pelvis NAD[] Course & Med Decision Making Course & Med Decision Making Pertinent Labs and Imaging studies reviewed. (See chart for details) ED course: Patient was seen and examined emergency room abdominal workup was ordered on the CT scan abdomen pelvis 2244: Patient was updated on lab results and CT findings. Explained to the patient that radiologist had noted that she's had multiple CT scans for similar symptoms and talked about radiation exposure. I recommended patient follow-up with PCP to have a colonoscopy done to further evaluate her abdominal pain. MDM: After reviewing the chart, CC/HPI/PMH, physical exam, [lab results], [ radiological results], I do not believe the patient has emergent medical condition warranting further workup and/or admission at this time. Patient is stable for discharge. Recommended patient follow-up with PCP to have a colostomy done. Additional verbal discharge instructions were provided to the patient and that if symptoms get worse or any new symptoms arise that are worrisome to the patient she is to return to the emergency room immediately [] Dragon Disclaimer Dragon Disclaimer This electronic medical record was generated, in whole or in part, using a voice recognition dictation system. Departure Departure Impression: Primary Impression: Left lower quadrant abdominal pain of unknown etiology Disposition: 01 HOME, SELF-CARE Condition: IMPROVED Referrals: UNKNOWN PCP NAME (PCP) Patient Instructions: Abdominal Pain (Nonspecific) Additional Instructions: Please follow up with your family physician in the next one to 2 days and return if symptoms increase ESTEPHANIA FREDERICK DO Jul 17, 2017 20:56
[2017-07-17] MEDS ORDERED: IOHEXOL 300 MG/ML 75 ML VIAL IV ONE (21:00)
[2017-07-17] MEDS ORDERED: ONDANSETRON PF 4 MG/2 ML VIAL. IV ONE (21:00)
[2017-07-17] MEDS ORDERED: fentaNYL PF VIAL 100 MCG/2 ML VIAL IV ONE (21:00)
[2017-07-17] MEDS ORDERED: IV NORMAL SALINE 1000ML BAG 1,000 ML IV ONE (21:00)
[2017-07-17 21:05] LABS: BASO # 0.1 x10^3/uL (0.0-0.2); BASO % 1 % (0-3); EOS % 3 % (0-3); HEMATOCRIT 33.9 % (36.0-47.0); HEMOGLOBIN 11.6 g/dL (12.0-15.5); LYMPH # 1.1 x10^3/uL (1.0-4.8); LYMPH % 16 % (24-48); MEAN CORPUSCULAR HEMOGLOBIN 30 pg (25-35); MEAN CORPUSCULAR HGB CONC 34 g/dL (31-37); MEAN CORPUSCULAR VOLUME 88 fL (79-100); MONO % 6 % (0-9); NEUT % 74 % (31-73); PLATELET COUNT 284 x10^3/uL (140-400); RED BLOOD COUNT 3.88 x10^6/uL (3.50-5.40); RED CELL DISTRIBUTION WIDTH 13.9 % (11.5-14.5); WHITE BLOOD COUNT 6.7 x10^3/uL (4.0-11.0)
[2017-07-17 21:06] LABS: BILIRUBIN,URINE NEGATIVE (NEG); GLUCOSE,URINE NEGATIVE (NEG); NITRITE,URINE NEGATIVE (NEG); PROTEIN,URINE NEGATIVE (NEG-TRACE); UROBILINOGEN,URINE 0.2 mg/dL (0.2 mg/dL)
[2017-07-17 21:15] LABS: BACTERIA,URINE FEW /HPF (0-FEW); RBC,URINE 0 /HPF (0-2); SQUAMOUS EPITHELIAL CELL,UR MOD /LPF; WBC,URINE OCC /HPF (0-4)
[2017-07-17] MEDS ORDERED: CONTRAST GIVEN MC PRN (21:15)
[2017-07-17 21:19] LABS: CALCIUM 9.1 mg/dL (8.5-10.1); CREATININE 0.7 mg/dL (0.6-1.0); GFR 89.3; POTASSIUM 3.5 mmol/L (3.5-5.1)
[2017-07-17 21:25] LABS: ALBUMIN 3.5 g/dL (3.4-5.0); ALBUMIN/GLOBULIN RATIO 0.9 (1.0-1.7); TOTAL BILIRUBIN 0.2 mg/dL (0.2-1.0); TOTAL PROTEIN 7.2 g/dL (6.4-8.2)
[2017-07-17 21:42] VITALS: BP 134/91
--- NOTE | 2017-07-17 22:28 | RAD ---
CT Abdomen and Pelvis With Intravenous Contrast: History: Abdominal pain. Comparison: CT abdomen pelvis April 15, 2017. Technique: After administration of intravenous contrast administration, 75 mL Omnipaque-300, CT of the abdomen and pelvis was performed. Exposure: One or more of the following individualized dose reduction techniques were utilized for this examination: 1. Automated exposure control 2. Adjustment of the mA and/or kV according to patient size 3. Use of iterative reconstruction technique Findings: Fatty liver disease is seen. Spleen, pancreas, and bilateral adrenal glands unremarkable. Gallbladder is absent. Bilateral kidneys enhance symmetrically. Aortic atherosclerosis is seen. No bowel obstruction or inflammation is identified. The gallbladder is absent. The uterus is absent. 2 small fat-containing ventral hernias are seen. Urinary bladder is unremarkable. Impression: 1. No acute abnormality identified in the abdomen or pelvis. 2. Please note that patient has had numerous CTs of the abdomen and pelvis at many hospital facilities. Extreme care in the future should be taken regarding indications for CT imaging. Electronically signed by: South Angulo MD (07/17/2017 10:25 PM) [id number]
== END 2017-07-17 22:50 | disposition home or self-care (01) ==
LOC: ER 19:52
DX: R10.32 Left lower quadrant pain (principal); R11.0 Nausea; F41.9 Anxiety disorder, unspecified; F32.9 Major depressive disorder, single episode, unspecified; K21.9 Gastro-esophageal reflux disease without esophagitis; E78.00 Pure hypercholesterolemia, unspecified; Z90.49 Acquired absence of other specified parts of digestive tract; Z90.710 Acquired absence of both cervix and uterus; Z88.1 Allergy status to other antibiotic agents; Z88.8 Allergy status to other drugs, medicaments and biological substances
CPT/HCPCS: 36415; 74177; 80053; 81001; 83690; 85025; 96361; 96374; 96375; 99285; J2405; J3010; J7030; Q9967

== ENCOUNTER 2017-09-29 13:26 | Emergency (ER) | payer SELFPAY ==
[2017-09-29 13:35] VITALS: BP 144/95
--- NOTE | 2017-09-29 13:57 | PHYS DOC ---
Past Medical History Past Medical History: Anemia, Anxiety, Depression, GERD, High Cholesterol Additional Past Medical Histor: rectal ulcers,endometrosis,c.diff, CHRONIC RECTAL BLEEDING, NARCOTIC ABUSE Past Surgical History: Appendectomy, Cholecystectomy, Hysterectomy Additional Past Surgical Histo: umbilical hernia repair Alcohol Use: Rarely Drug Use: None Adult General Chief Complaint Chief Complaint: ABDOMINAL PAIN HPI HPI Patient is a 47 year old female who presents with left lower abdominal pain. Patient states the pain started within 2 hours upon arrival, she describes it as a twisting pain, she reports nausea and vomiting with loose stools. Patient reports she was shopping at the local [employer]. Patient states she has not had symptoms like this before. Patient's had multiple abdominal surgeries in the past. She states she has not attempted any symptom controlling medications. No known fevers and she was brought in by EMS. She reports her primary care doctor is at [facility]. Review of Systems Review of Systems Constitutional: Denies fever or chills Eyes: Denies eye pain or discharge HENT: Denies nasal congestion or sore throat Respiratory: Denies cough or shortness of breath [] Cardiovascular: Denies chest pain or edema GI: per hpi : Denies dysuria Musculoskeletal: Denies back pain Extremities: denies joint pain [] Integument: Denies rash Neurologic: Denies headache, denies focal weakness , denies sensory changes [] Allergies Allergies Allergies Coded Allergies Type Severity Reaction Last Updated Verified cephalexin Allergy Intermediate rash, red ears 08/14/16 No prochlorperazine Allergy Intermediate 11/24/16 Yes Physical Exam Physical Exam Constitutional: Well developed, well nourished, no acute distress, non-toxic appearance. Morbid obesity HENT: Normocephalic, atraumatic, bilateral external ears normal, oropharynx moist, no oral exudates, nose normal. [] Eyes: PERRLA, EOMI, conjunctiva normal, no discharge. [] Neck: Normal range of motion, no tenderness, supple, no stridor. [] Cardiovascular:Heart rate tachycardia with regular rhythm, no murmur [] Lungs & Thorax: Bilateral breath sounds clear to auscultation, no wheeze or crackles Abdomen: Bowel sounds normal, soft, nondistended, tender to palpation of the left lower quadrant with voluntary guarding, no peritoneal signs, negative McBurney's, negative Pappas's Skin: Warm, dry, no erythema, no rash. [] Back: No tenderness, no CVA tenderness. [] Extremities: No tenderness, no cyanosis, no clubbing, ROM intact, no edema. [] Neurologic: Alert and oriented X 3, normal motor function, normal sensory function, no focal deficits noted. [] Current Patient Data Vital Signs Vital Signs Date Time Temp Pulse Resp B/P (MAP) Pulse Ox O2 Delivery O2 Flow Rate FiO2 09/29/17 13:35 98.0 110 22 144/95 (111) 98 Room Air 98.0 EKG EKG [] Radiology/Procedures Radiology/Procedures [] Course & Med Decision Making Course & Med Decision Making Pertinent Labs and Imaging studies reviewed. (See chart for details) [] I am familiar with this patient has had treated her in previous ER visits at this and other hospitals. I explained to the patient we be happy to evaluate her for acute onset abdominal pain. She or he has a IV by EMS. I explained we would draw lab work, performing urinalysis, I would order her IV Toradol. As soon as I mentioned giving her Toradol, the patient yelled "you have my record that you aren't willing to help me?". Explained that I wasn't sure what she meant but that I was offering to help her by giving her pain medication while we evaluate her for any significant abnormalities or surgical abdomen. Patient then stated that Toradol does not work for her. I offered her Tylenol and patient then stated that she was "just can ago". I explained to patient at length that I could not tell that her symptoms were not serious and that she could have a serious complication in her abdomen that we should evaluate. This could be serious enough to injure or kill her. The patient still declared that she would not stay for the evaluation if we were not going to give her something stronger at this time. Patient then easily got herself out of bed and started to get herself ready to leave. Unfortunately this patient has exhibited serious drug-seeking behavior in the past, repeatedly leaving AGAINST MEDICAL ADVICE after she does not receive IV pain medications. She was seen late last month and had a CT scan that did not show any significant abnormalities. The patient voice understanding of these possible complications and she signed out. Pt was not willing to discuss other ways to cope with pain. Dragon Disclaimer Dragon Disclaimer This electronic medical record was generated, in whole or in part, using a voice recognition dictation system. Departure Departure Impression: Primary Impression: Left against medical advice Additional Impression: Abdominal pain Disposition: 07 AGAINST MEDICAL ADVICE Condition: STABLE Referrals: NO PCP (PCP) Problem Qualifiers DIANA RIVERA MD Sep 29, 2017 13:56
== END 2017-09-29 13:46 | disposition left against medical advice (07) ==
LOC: ER 13:26
DX: R10.32 Left lower quadrant pain (principal); R11.2 Nausea with vomiting, unspecified; R19.7 Diarrhea, unspecified; E78.00 Pure hypercholesterolemia, unspecified; K21.9 Gastro-esophageal reflux disease without esophagitis; F41.9 Anxiety disorder, unspecified; F32.9 Major depressive disorder, single episode, unspecified; Z86.2 Personal history of diseases of the blood and blood-forming organs and certain disorders involving the immune mechanism; Z90.49 Acquired absence of other specified parts of digestive tract; Z90.710 Acquired absence of both cervix and uterus; Z88.1 Allergy status to other antibiotic agents; Z88.8 Allergy status to other drugs, medicaments and biological substances
CPT/HCPCS: 99281; 99283

== ENCOUNTER 2017-10-18 19:19 | Emergency (ER) | payer SELFPAY ==
[2017-10-18 19:53] LABS: BILIRUBIN,URINE NEGATIVE (NEG); GLUCOSE,URINE NEGATIVE (NEG); NITRITE,URINE NEGATIVE (NEG); PH,URINE 5.5; PROTEIN,URINE NEGATIVE (NEG-TRACE); UROBILINOGEN,URINE 0.2 mg/dL (0.2 mg/dL)
[2017-10-18 19:59] LABS: ADD MAN DIFF? NO
[2017-10-18] MEDS: IV NORMAL SALINE 1000ML BAG 1,000 ML IV (20:00)
[2017-10-18 20:01] LABS: BASO % 1 % (0-3); EOS % 5 % (0-3); HEMATOCRIT 36.2 % (36.0-47.0); HEMOGLOBIN 11.9 g/dL (12.0-15.5); LYMPH # 0.9 x10^3/uL (1.0-4.8); LYMPH % 12 % (24-48); MEAN CORPUSCULAR HEMOGLOBIN 29 pg (25-35); MEAN CORPUSCULAR HGB CONC 33 g/dL (31-37); MEAN CORPUSCULAR VOLUME 87 fL (79-100); MONO % 6 % (0-9); NEUT % 76 % (31-73); PLATELET COUNT 260 x10^3/uL (140-400); RED BLOOD COUNT 4.19 x10^6/uL (3.50-5.40); RED CELL DISTRIBUTION WIDTH 12.9 % (11.5-14.5)
[2017-10-18] MEDS: ONDANSETRON PF 4 MG/2 ML VIAL. IV (20:01)
[2017-10-18] MEDS: KETOROLAC 30 MG/ML INJ. IV (20:01)
[2017-10-18 20:03] LABS: BACTERIA,URINE 0 /HPF (0-FEW); RBC,URINE 0 /HPF (0-2); SQUAMOUS EPITHELIAL CELL,UR FEW /LPF; WBC,URINE 0 /HPF (0-4)
[2017-10-18 20:09] LABS: ANION GAP 12 (6-14); BLOOD UREA NITROGEN 11 mg/dL (7-20); BUN/CREATININE RATIO 12 (6-20); CALCIUM 8.8 mg/dL (8.5-10.1); CARBON DIOXIDE 27 mmol/L (21-32); CHLORIDE 106 mmol/L (98-107); CREATININE 0.9 mg/dL (0.6-1.0); GFR 66.8; GLUCOSE 153 mg/dL (70-99); POTASSIUM 3.9 mmol/L (3.5-5.1); SODIUM 145 mmol/L (136-145)
[2017-10-18 20:15] LABS: ALBUMIN 3.7 g/dL (3.4-5.0); ALBUMIN/GLOBULIN RATIO 1.1 (1.0-1.7); ALK PHOS 133 U/L (46-116); ALT (SGPT) 27 U/L (14-59); AST (SGOT) 16 U/L (15-37); TOTAL BILIRUBIN 0.2 mg/dL (0.2-1.0)
[2017-10-18 20:17] LABS: TROPONINI < 0.017 ng/mL (0.000-0.055)
[2017-10-18] MEDS: HYDROcodone/APAP 5/325MG 1 TAB TABLET PO (22:07)
== END 2017-10-18 22:10 | disposition home or self-care (01) ==
LOC: ER 19:19
DX: R10.9 Unspecified abdominal pain (principal); R11.0 Nausea; F41.9 Anxiety disorder, unspecified; F32.9 Major depressive disorder, single episode, unspecified; K21.9 Gastro-esophageal reflux disease without esophagitis; E78.00 Pure hypercholesterolemia, unspecified; F11.10 Opioid abuse, uncomplicated; E66.9 Obesity, unspecified; Z88.1 Allergy status to other antibiotic agents; Z90.49 Acquired absence of other specified parts of digestive tract; Z90.710 Acquired absence of both cervix and uterus; Z88.8 Allergy status to other drugs, medicaments and biological substances; Z68.41 Body mass index [BMI] 40.0-44.9, adult
CPT/HCPCS: 36415; 74022; 80053; 81001; 83690; 84484; 85025; 93005; 96361; 96374; 96375; 99285-25; J1885; J2405; J7030

== ENCOUNTER 2017-11-04 16:16 | Emergency (ER) | payer SELFPAY ==
[2017-11-04] MEDS ORDERED: FAMOTIDINE 20 MG/2 ML VIAL IVP (17:00)
[2017-11-04] MEDS ORDERED: KETOROLAC 30 MG/ML INJ. IV (17:00)
[2017-11-04] MEDS ORDERED: IV NORMAL SALINE 1000ML BAG 1,000 ML IV (17:00)
[2017-11-04] MEDS ORDERED: ONDANSETRON PF 4 MG/2 ML VIAL. IV (17:00)
[2017-11-04] MEDS ORDERED: IOHEXOL 300 MG/ML 100ML VIAL. (17:41)
== END 2017-11-04 17:02 | disposition left against medical advice (07) ==
LOC: ER 17:02
DX: R10.32 Left lower quadrant pain (principal); R11.2 Nausea with vomiting, unspecified; R19.7 Diarrhea, unspecified; K92.1 Melena; F41.9 Anxiety disorder, unspecified; F32.9 Major depressive disorder, single episode, unspecified; K21.9 Gastro-esophageal reflux disease without esophagitis; E78.00 Pure hypercholesterolemia, unspecified; Z90.49 Acquired absence of other specified parts of digestive tract; Z90.710 Acquired absence of both cervix and uterus; Z88.1 Allergy status to other antibiotic agents; Z88.8 Allergy status to other drugs, medicaments and biological substances
CPT/HCPCS: 99281

== ENCOUNTER 2018-01-05 14:38 | Emergency (ER) | payer SELFPAY | END 2018-01-05 14:57 | disposition left against medical advice (07) | LOC: ER 14:57 | DX: R10.32 Left lower quadrant pain (principal); R11.0 Nausea; F41.9 Anxiety disorder, unspecified; F32.9 Major depressive disorder, single episode, unspecified; E78.00 Pure hypercholesterolemia, unspecified; K21.9 Gastro-esophageal reflux disease without esophagitis; F11.10 Opioid abuse, uncomplicated; Z90.49 Acquired absence of other specified parts of digestive tract; Z76.5 Malingerer [conscious simulation]; Z90.710 Acquired absence of both cervix and uterus; Z88.1 Allergy status to other antibiotic agents; Z88.8 Allergy status to other drugs, medicaments and biological substances | CPT/HCPCS: 93005; 99283-25 ==

== ENCOUNTER 2018-03-17 18:06 | Emergency (ER) | payer OTHER ==
[2018-03-17 18:46] LABS: BILIRUBIN,URINE NEGATIVE (NEG); CLARITY,URINE CLEAR; COLOR,URINE YELLOW; GLUCOSE,URINE NEGATIVE (NEG); NITRITE,URINE NEGATIVE (NEG); PROTEIN,URINE NEGATIVE (NEG-TRACE); UROBILINOGEN,URINE 0.2 mg/dL (0.2 mg/dL)
[2018-03-17 18:56] LABS: ADD MAN DIFF? NO
[2018-03-17 18:57] LABS: BASO # 0.1 x10^3/uL (0.0-0.2); BASO % 1 % (0-3); EOS # 0.2 x10^3/uL (0.0-0.7); EOS % 4 % (0-3); HEMATOCRIT 32.9 % (36.0-47.0); LYMPH # 0.8 x10^3/uL (1.0-4.8); LYMPH % 13 % (24-48); MEAN CORPUSCULAR HEMOGLOBIN 27 pg (25-35); MEAN CORPUSCULAR HGB CONC 33 g/dL (31-37); MEAN CORPUSCULAR VOLUME 80 fL (79-100); MONO # 0.4 x10^3/uL (0.0-1.1); MONO % 6 % (0-9); NEUT # 4.5 x10^3uL (1.8-7.7); NEUT % 76 % (31-73); PLATELET COUNT 281 x10^3/uL (140-400); RED BLOOD COUNT 4.09 x10^6/uL (3.50-5.40); RED CELL DISTRIBUTION WIDTH 17.6 % (11.5-14.5); WHITE BLOOD COUNT 5.9 x10^3/uL (4.0-11.0)
[2018-03-17 19:00] LABS: BACTERIA,URINE 0 /HPF (0-FEW); RBC,URINE 0 /HPF (0-2); SQUAMOUS EPITHELIAL CELL,UR OCC /LPF; WBC,URINE OCC /HPF (0-4)
[2018-03-17] MEDS: IV NORMAL SALINE 1000ML BAG 1,000 ML IV (19:02)
[2018-03-17 19:10] LABS: ANION GAP 11 (6-14); BLOOD UREA NITROGEN 16 mg/dL (7-20); BUN/CREATININE RATIO 23 (6-20); CALCIUM 9.2 mg/dL (8.5-10.1); CARBON DIOXIDE 25 mmol/L (21-32); CHLORIDE 104 mmol/L (98-107); CREATININE 0.7 mg/dL (0.6-1.0); GFR 89.3; GLUCOSE 126 mg/dL (70-99); SODIUM 140 mmol/L (136-145)
[2018-03-17 19:14] LABS: ALBUMIN 3.9 g/dL (3.4-5.0); ALBUMIN/GLOBULIN RATIO 1.1 (1.0-1.7); ALK PHOS 133 U/L (46-116); ALT (SGPT) 28 U/L (14-59); AST (SGOT) 15 U/L (15-37); LIPASE 155 U/L (73-393); TOTAL BILIRUBIN 0.2 mg/dL (0.2-1.0); TOTAL PROTEIN 7.6 g/dL (6.4-8.2)
[2018-03-17] MEDS ORDERED: CONTRAST GIVEN MC (19:30)
[2018-03-17] MEDS: IOHEXOL 300 MG/ML 100ML VIAL. IV (19:34)
[2018-03-17] MEDS ORDERED: IV NORMAL SALINE 1000ML BAG 1,000 ML IV (19:58)
[2018-03-17] MEDS: ONDANSETRON PF 4 MG/2 ML VIAL. IV (20:16)
[2018-03-17] MEDS: fentaNYL PF VIAL 100 MCG/2 ML VIAL IV (20:17)
== END 2018-03-17 21:33 | disposition home or self-care (01) ==
LOC: ER 18:06
DX: R10.32 Left lower quadrant pain (principal); R11.2 Nausea with vomiting, unspecified; Z88.1 Allergy status to other antibiotic agents; E78.00 Pure hypercholesterolemia, unspecified; F32.9 Major depressive disorder, single episode, unspecified; F41.9 Anxiety disorder, unspecified; K21.9 Gastro-esophageal reflux disease without esophagitis; Z88.8 Allergy status to other drugs, medicaments and biological substances; Z90.49 Acquired absence of other specified parts of digestive tract; Z90.710 Acquired absence of both cervix and uterus
CPT/HCPCS: 36415; 74177; 80053; 81001; 83690; 85025; 87086; 93005; 96361; 96374; 96375; 99285-25; J2405; J3010; J7030; Q9967

== ENCOUNTER 2018-04-12 19:37 | Emergency (ER) | payer OTHER | END 2018-04-12 20:30 | disposition home or self-care (01) | LOC: ER 20:30 | DX: G89.29 Other chronic pain (principal); R10.32 Left lower quadrant pain; K21.9 Gastro-esophageal reflux disease without esophagitis; E78.00 Pure hypercholesterolemia, unspecified; Z90.710 Acquired absence of both cervix and uterus; Z90.49 Acquired absence of other specified parts of digestive tract; Z88.8 Allergy status to other drugs, medicaments and biological substances | CPT/HCPCS: 99281 ==

== ENCOUNTER 2018-06-07 20:30 | Emergency (ER) | payer OTHER ==
[~2018-06-07] VITALS: Ht 162.6 cm; Wt 113.4 kg
[~2018-06-07 20:30] MED LIST changes: +FAMO40TA57 PO
[2018-06-07] MEDS ORDERED: MORPHINE SULFATE 10 MG/ML VIAL. IV ONE (22:00)
[2018-06-07] MEDS ORDERED: ONDANSETRON PF 4 MG/2 ML VIAL. IV ONE (22:00)
[2018-06-07 22:15] VITALS: BP 152/100
[2018-06-07 22:39] LABS: BASO % 0 % (0-3); EOS # 0.3 x10^3/uL (0.0-0.7); EOS % 5 % (0-3); HEMATOCRIT 25.5 % (36.0-47.0); HEMOGLOBIN 8.4 g/dL (12.0-15.5); LYMPH # 0.8 x10^3/uL (1.0-4.8); LYMPH % 13 % (24-48); MEAN CORPUSCULAR HEMOGLOBIN 25 pg (25-35); MEAN CORPUSCULAR HGB CONC 33 g/dL (31-37); MEAN CORPUSCULAR VOLUME 77 fL (79-100); MONO # 0.5 x10^3/uL (0.0-1.1); MONO % 9 % (0-9); NEUT # 4.2 x10^3uL (1.8-7.7); NEUT % 73 % (31-73); PLATELET COUNT 258 x10^3/uL (140-400); RED BLOOD COUNT 3.32 x10^6/uL (3.50-5.40); WHITE BLOOD COUNT 5.8 x10^3/uL (4.0-11.0)
[2018-06-07 22:42] LABS: FECAL OB PT POSITIVE (NEG)
--- NOTE | 2018-06-08 02:23 | PHYS DOC ---
Past Medical History Past Medical History: Anemia, Anxiety, GERD, High Cholesterol, Other Additional Past Medical Histor: COLITIS Past Surgical History: Appendectomy, Cholecystectomy, Hysterectomy, Other Additional Past Surgical Histo: HERNIA REPAIR, FISTUAL REPAIR, RECTAL PROLAPSE REPAIR Alcohol Use: Occasionally Drug Use: None Adult General Chief Complaint Chief Complaint: RECTAL BLEED [facility] HPI Patient is a 47 year old female who presents with abdominal pain and rectal bleeding. The patient states she has a history of ulcerative colitis. She was recently started on sulfasalazine by her primary care doctor one week earlier. This evening, she presents complaining of symptoms that are typical of her normal flare. She has pain of the lower portions of her abdomen that is worse on the left compared to the right. She also states she has had some bleeding today from her rectum both with stools and without. She estimates a fourth of a cup total of blood loss. She did not complain of dizziness or lightheadedness or palpitations. She has no vomiting but does complain of nausea. Review of Systems Review of Systems Constitutional: + chills HENT: Denies nasal congestion Respiratory: Denies cough or shortness of breath Cardiovascular: No additional information GI: as documented in HPI : Denies dysuria Musculoskeletal: Denies back pain Integument: Denies rash or skin lesions All other systems were reviewed and found to be within normal limits, except as documented in this note. Current Medications Current Medications Current Medications Medications (Trade) Dose Ordered Sig/[facility] Start Time Stop Time Status Last Admin Dose Admin Morphine Sulfate (Morphine Sulfate) 6 mg 1X ONCE 06/07/18 22:00 06/07/18 22:15 DC Ondansetron HCl (Zofran) 4 mg 1X ONCE 06/07/18 22:00 06/07/18 22:01 DC Allergies Allergies Allergies Coded Allergies Type Severity Reaction Last Updated Verified cephalexin Allergy Intermediate rash, red ears 08/14/16 No prochlorperazine Allergy Intermediate 11/24/16 Yes Physical Exam Physical Exam Constitutional: Well developed, well nourished, no acute distress, non-toxic appearance HENT: Normocephalic, atraumatic, oropharynx moist nose normal Eyes: EOMI Neck: Normal range of motion Cardiovascular:Heart rate regular rhythm, no murmur Lungs & Thorax: Bilateral breath sounds clear to auscultation Abdomen: Bowel sounds normal, soft, mild TTP over lower quadrants but no guarding or rebound Skin: no rash Extremities: No edema Neurologic: Alert and oriented X 3 Psychologic: Affect normal Current Patient Data Vital Signs Vital Signs Date Time Temp Pulse Resp B/P (MAP) Pulse Ox O2 Delivery O2 Flow Rate FiO2 06/07/18 22:15 90 16 152/100 (117) 95 Room Air 06/07/18 21:37 98.6 98.6 Lab Values Laboratory Tests Test 06/07/18 22:28 White Blood Count 5.8 x10^3/uL (4.0-11.0) Red Blood Count 3.32 x10^6/uL (3.50-5.40) L Hemoglobin 8.4 g/dL (12.0-15.5) L Hematocrit 25.5 % (36.0-47.0) L Mean Corpuscular Volume 77 fL (79-100) L Mean Corpuscular Hemoglobin 25 pg (25-35) Mean Corpuscular Hemoglobin Concent 33 g/dL (31-37) Red Cell Distribution Width 15.0 % (11.5-14.5) H Platelet Count 258 x10^3/uL (140-400) Neutrophils (%) (Auto) 73 % (31-73) Lymphocytes (%) (Auto) 13 % (24-48) L Monocytes (%) (Auto) 9 % (0-9) Eosinophils (%) (Auto) 5 % (0-3) H Basophils (%) (Auto) 0 % (0-3) Neutrophils # (Auto) 4.2 x10^3uL (1.8-7.7) Lymphocytes # (Auto) 0.8 x10^3/uL (1.0-4.8) L Monocytes # (Auto) 0.5 x10^3/uL (0.0-1.1) Eosinophils # (Auto) 0.3 x10^3/uL (0.0-0.7) Basophils # (Auto) 0.0 x10^3/uL (0.0-0.2) Stool Occult Blood Positive (NEG) Laboratory Tests 06/07/18 22:28 EKG EKG [] Radiology/Procedures Radiology/Procedures [] Course & Med Decision Making Course & Med Decision Making Pertinent Labs and Imaging studies reviewed. (See chart for details) Tony williamson is seen and evaluated shortly after arrival to her room. She complains primarily of lower abdominal pain with some bleeding today. The symptoms are typical for her colitis flare. Orders were initially placed for medication for pain and nausea. CT scan. I was notified by radiology department, however, the patient had had 14 CT scans in the last 12 months. Additionally, there was mention made by a interpreting radiologist that the patient had multiple CT scans from multiple facilities. I did check the patient's [facility]'s record and found her last opiate prescription to be from March from a hospital in [place]. I made contact with the provider at that hospital who confirmed that the patient had had negative CT scans of her abdomen both in March and April when she had presented with abdominal pain. I reviewed the CT scans in this facility which have all been normal. His stress the risk of so many CT scans and radiation exposure with the patient. Decision is made to check blood work prior to pursuing CT scan this visit. CBC is ordered and stool for guaiac. CBC did ultimately return with a hemoglobin that was lower when compared to the patient' s most recent. Her guaiac her stool was positive. I did not, however, give the chance to discuss these findings with the patient because she eloped from the department prior to completing evaluation. At last contact, the patient was awake and alert and oriented. She was clinically sober and had capacity to leave the department at her will. Charbel Disclaimer Charbel Disclaimer This electronic medical record was generated, in whole or in part, using a voice recognition dictation system. Departure Departure Referrals: UNKNOWN PCP NAME (PCP) KAN STEVENS DO Jun 08, 2018 02:23
== END 2018-06-07 22:57 | disposition home or self-care (01) ==
LOC: ER 20:30
DX: K62.5 Hemorrhage of anus and rectum (principal); R10.30 Lower abdominal pain, unspecified; R11.0 Nausea; F41.9 Anxiety disorder, unspecified; K21.9 Gastro-esophageal reflux disease without esophagitis; E78.00 Pure hypercholesterolemia, unspecified; Z90.49 Acquired absence of other specified parts of digestive tract; Z90.710 Acquired absence of both cervix and uterus; Z90.89 Acquired absence of other organs; Z88.1 Allergy status to other antibiotic agents; Z88.8 Allergy status to other drugs, medicaments and biological substances
CPT/HCPCS: 36415; 82274; 85025; 99284

== ENCOUNTER 2018-08-25 20:15 | Emergency (ER) | payer OTHER ==
[~2018-08-25] VITALS: Ht 162.6 cm; Wt 113.4 kg
[2018-08-25] MEDS ORDERED: IV NORMAL SALINE 1000ML BAG 1,000 ML IV ONE (20:45)
[2018-08-25] MEDS ORDERED: ONDANSETRON PF 4 MG/2 ML VIAL. IV ONE (20:45)
[2018-08-25] MEDS ORDERED: fentaNYL PF VIAL 100 MCG/2 ML VIAL IV ONE ×3 (20:45→22:55)
--- NOTE | 2018-08-25 20:54 | PHYS DOC ---
Past Medical History Past Medical History: Anemia, Anxiety, GERD, High Cholesterol, Other Additional Past Medical Histor: COLITIS Past Surgical History: Appendectomy, Cholecystectomy, Hysterectomy, Other Additional Past Surgical Histo: HERNIA REPAIR, FISTUAL REPAIR, RECTAL PROLAPSE REPAIR Alcohol Use: Occasionally Drug Use: None Adult General Chief Complaint Chief Complaint: ABDOMINAL PAIN HPI HPI Patient is a 48 year old female who presents with abdominal pain. Patient has an extensive history of colitis. She is followed by gastroenterology and does take multiple medications daily to limit her bowel inflammation. Today, she complains of left lower quadrant pain. The pain started earlier today and is described to be severe. Pain is over the left lower quadrant. She has not had a fever but has had some chills. No vomiting but she has had nausea. Past surgeries include surgical reduction of rectal prolapse, hysterectomy, appendectomy. Patient also is known to have diverticula. She did have 3 episodes of bloody diarrhea today. It was not amari blood but was stool streaked with red blood. Review of Systems Review of Systems Constitutional: Denies fever or chills Eyes: Denies change in visual acuity HENT: Denies nasal congestion Respiratory: Denies cough or shortness of breath Cardiovascular: No additional information not addressed in HPI GI: as documented above : Denies dysuria Musculoskeletal: Denies back pain Integument: Denies rash or skin lesions Neurologic: Denies headache All other systems were reviewed and found to be within normal limits, except as documented in this note. Current Medications Current Medications Current Medications Medications (Trade) Dose Ordered Sig/[facility] Start Time Stop Time Status Last Admin Dose Admin Fentanyl Citrate (Fentanyl 2ml Vial) 100 mcg 1X ONCE 08/25/18 22:55 08/25/18 22:56 DC 08/25/18 23:12 100 MCG Info (CONTRAST GIVEN -- Rx MONITORING) 1 each PRN DAILY PRN 08/25/18 21:15 08/25/18 23:40 DC Iohexol (Omnipaque 300 Mg/ml) 75 ml 1X ONCE 08/25/18 21:15 08/25/18 21:16 DC 08/25/18 21:29 75 ML Ondansetron HCl (Zofran) 4 mg 1X ONCE 08/25/18 20:45 08/25/18 20:48 DC 08/25/18 21:38 4 MG Sodium Chloride 1,000 ml @ 1,000 mls/hr 1X ONCE 08/25/18 20:45 08/25/18 21:44 DC 08/25/18 21:39 1,000 MLS/HR Allergies Allergies Allergies Coded Allergies Type Severity Reaction Last Updated Verified cephalexin Allergy Intermediate rash, red ears 08/14/16 No prochlorperazine Allergy Intermediate 11/24/16 Yes Physical Exam Physical Exam Constitutional: Well developed, well nourished, no acute distress, non-toxic appearance HENT: Normocephalic, atraumatic, bilateral external ears normal, oropharynx moist Eyes: PERRLA, EOMI, conjunctiva normal Neck: Normal range of motion, no tenderness Cardiovascular:Heart rate regular rhythm, no murmur Lungs & Thorax: Bilateral breath sounds clear to auscultation Abdomen: obese, soft, TTP over LLQ Skin: Warm, dry, no erythema, no rash Extremities: No edema Neurologic: Alert and oriented X 3 Psychologic: Affect normal Current Patient Data Vital Signs Vital Signs Date Time Temp Pulse Resp B/P (MAP) Pulse Ox O2 Delivery O2 Flow Rate FiO2 08/25/18 23:15 90 16 124/70 (88) 98 08/25/18 23:12 Room Air 08/25/18 20:29 98.3 98.3 Lab Values Laboratory Tests Test 08/25/18 20:33 08/25/18 20:38 Urine Collection Type Unknown Urine Color Yellow Urine Clarity Clear Urine pH 6.0 Urine Specific [place] 1.010 Urine Protein Negative mg/dL (NEG-TRACE) Urine Glucose (UA) Negative mg/dL (NEG) Urine Ketones (Stick) Negative mg/dL (NEG) Urine Blood Trace (NEG) Urine Nitrite Negative (NEG) Urine Bilirubin Negative (NEG) Urine Urobilinogen Dipstick 0.2 mg/dL (0.2 mg/dL) Urine Leukocyte Esterase Negative (NEG) Urine RBC Occ /HPF (0-2) Urine WBC Occ /HPF (0-4) Urine Squamous Epithelial Cells Occ /LPF Urine Bacteria Few /HPF (0-FEW) White Blood Count 6.3 x10^3/uL (4.0-11.0) Red Blood Count 4.04 x10^6/uL (3.50-5.40) Hemoglobin 10.6 g/dL (12.0-15.5) L Hematocrit 31.6 % (36.0-47.0) L Mean Corpuscular Volume 78 fL (79-100) L Mean Corpuscular Hemoglobin 26 pg (25-35) Mean Corpuscular Hemoglobin Concent 34 g/dL (31-37) Red Cell Distribution Width 18.0 % (11.5-14.5) H Platelet Count 270 x10^3/uL (140-400) Neutrophils (%) (Auto) 81 % (31-73) H Lymphocytes (%) (Auto) 13 % (24-48) L Monocytes (%) (Auto) 5 % (0-9) Eosinophils (%) (Auto) 1 % (0-3) Basophils (%) (Auto) 1 % (0-3) Neutrophils # (Auto) 5.1 x10^3uL (1.8-7.7) Lymphocytes # (Auto) 0.8 x10^3/uL (1.0-4.8) L Monocytes # (Auto) 0.3 x10^3/uL (0.0-1.1) Eosinophils # (Auto) 0.1 x10^3/uL (0.0-0.7) Basophils # (Auto) 0.1 x10^3/uL (0.0-0.2) Sodium Level 140 mmol/L (136-145) Potassium Level 3.6 mmol/L (3.5-5.1) Chloride Level 101 mmol/L (98-107) Carbon Dioxide Level 28 mmol/L (21-32) Anion Gap 11 (6-14) Blood Urea Nitrogen 14 mg/dL (7-20) Creatinine 0.7 mg/dL (0.6-1.0) Estimated GFR (Cockcroft-Gault) 88.9 Glucose Level 163 mg/dL (70-99) H Calcium Level 9.3 mg/dL (8.5-10.1) Total Bilirubin 0.2 mg/dL (0.2-1.0) Direct Bilirubin 0.1 mg/dL (0.0-0.2) Aspartate Amino Transferase (AST) 14 U/L (15-37) L Alanine Aminotransferase (ALT) 25 U/L (14-59) Alkaline Phosphatase 111 U/L (46-116) Total Protein 7.4 g/dL (6.4-8.2) Albumin 3.5 g/dL (3.4-5.0) Lipase 177 U/L (73-393) Laboratory Tests 08/25/18 20:38 Laboratory Tests 08/25/18 20:38 EKG EKG [] Radiology/Procedures Radiology/Procedures Findings: Axial images of the abdomen and pelvis were obtained following 75 cc Omnipaque 300 IV. Sagittal and coronal reformatted images were provided. Visualized lung bases are clear. Very minimal emphysematous involvement of the left lung base. Liver, spleen, pancreas, adrenal glands, and kidneys are normal. No ascites or pelvic free fluid. No enlarged abdominal or pelvic lymph nodes. Moderate quantity of stool in the colon is present. Cholecystectomy evident. There is no bowel obstruction. Submucosal fat is noted involving the colon. Suture material about the cecum noted. No appendix identified. Circumferential thickening of left upper quadrant jejunal loops of bowel may represent contraction or spasm. Supraumbilical ventral hernia defect measuring 0.9 cm transverse with minimal herniated omental fat evident. Impression: Minimal ventral hernia in the supraumbilical region containing omental fat. No suspicious acute inflammatory processes. Submucosal fat involving the colon. Correlate with previous history of colitis. Course & Med Decision Making Course & Med Decision Making Pertinent Labs and Imaging studies reviewed. (See chart for details) 20:50: Patient is seen and examined. IV orders are placed for pain medication. Standard abdominal pain workup. 22:30: Patient is improved after 2 doses of fentanyl in the ER. Her CT scan is suspicious for colitis but no additional acute findings. Her nausea is improved. She is not having emesis. No significant leukocytosis. No additional lab derangements. Hgb is stable. Plan is for discharge home. She is placed on Cipro and Flagyl. The patient already has a GI doctor but she is requesting a "second opinion." She is provided the information to the on-call GI physician today, Dr. Pena. She is agreeable to the plan of care including discharge home. Charbel Disclaimer Teresaon Disclaimer This electronic medical record was generated, in whole or in part, using a voice recognition dictation system. Departure Departure Referrals: UNKNOWN PCP NAME (PCP) Scripts Ondansetron (ONDANSETRON ODT) 4 Mg Tab.rapdis 4 MG PO TID PRN for NAUSEA/VOMITING, #20 TAB Prov: KAN STEVENS DO 08/25/18 Oxycodone Hcl (OXYCODONE HCL) 5 Mg Capsule 2 CAP PO TID PRN for severe pain, #20 CAP Prov: KAN STEVENS DO 08/25/18 Metronidazole (FLAGYL) 500 Mg Tablet 500 MG PO TID, #21 TAB Prov: KAN STEVENS DO 08/25/18 Ciprofloxacin Hcl (CIPROFLOXACIN HCL) 500 Mg Tablet 1 TAB PO BID, #14 TAB Prov: KAN STEVENS DO 08/25/18 KAN STEVENS DO Aug 25, 2018 20:54
[2018-08-25 20:57] LABS: BASO # 0.1 x10^3/uL (0.0-0.2); BASO % 1 % (0-3); EOS # 0.1 x10^3/uL (0.0-0.7); EOS % 1 % (0-3); HEMATOCRIT 31.6 % (36.0-47.0); HEMOGLOBIN 10.6 g/dL (12.0-15.5); LYMPH # 0.8 x10^3/uL (1.0-4.8); LYMPH % 13 % (24-48); MEAN CORPUSCULAR HEMOGLOBIN 26 pg (25-35); MEAN CORPUSCULAR HGB CONC 34 g/dL (31-37); MEAN CORPUSCULAR VOLUME 78 fL (79-100); MONO # 0.3 x10^3/uL (0.0-1.1); MONO % 5 % (0-9); NEUT # 5.1 x10^3uL (1.8-7.7); NEUT % 81 % (31-73); PLATELET COUNT 270 x10^3/uL (140-400); RED BLOOD COUNT 4.04 x10^6/uL (3.50-5.40); WHITE BLOOD COUNT 6.3 x10^3/uL (4.0-11.0)
[2018-08-25 20:59] LABS: BILIRUBIN,URINE NEGATIVE (NEG); CLARITY,URINE CLEAR; COLOR,URINE YELLOW; NITRITE,URINE NEGATIVE (NEG); PROTEIN,URINE NEGATIVE (NEG-TRACE); UROBILINOGEN,URINE 0.2 mg/dL (0.2 mg/dL)
[2018-08-25 21:05] LABS: CALCIUM 9.3 mg/dL (8.5-10.1); CREATININE 0.7 mg/dL (0.6-1.0); GFR 88.9; POTASSIUM 3.6 mmol/L (3.5-5.1)
[2018-08-25 21:11] LABS: ALBUMIN 3.5 g/dL (3.4-5.0); DIRECT BILIRUBIN 0.1 mg/dL (0.0-0.2); TOTAL BILIRUBIN 0.2 mg/dL (0.2-1.0); TOTAL PROTEIN 7.4 g/dL (6.4-8.2)
[2018-08-25 21:11] LABS: BACTERIA,URINE FEW /HPF (0-FEW); RBC,URINE OCC /HPF (0-2); SQUAMOUS EPITHELIAL CELL,UR OCC /LPF; WBC,URINE OCC /HPF (0-4)
[2018-08-25] MEDS ORDERED: IOHEXOL 300 MG/ML 100ML VIAL. IV ONE (21:15)
[2018-08-25] MEDS ORDERED: CONTRAST GIVEN. MC PRN (21:15)
--- NOTE | 2018-08-25 22:31 | RAD ---
Examination: CT ABD PELV W/ IV CONTRST ONLY History: LLQ PAIN; OMNI 300, 75ML Comparison/Correlation: 03/17/2018 CT abdomen and pelvis with IV contrast Findings: Axial images of the abdomen and pelvis were obtained following 75 cc Omnipaque 300 IV. Sagittal and coronal reformatted images were provided. Visualized lung bases are clear. Very minimal emphysematous involvement of the left lung base. Liver, spleen, pancreas, adrenal glands, and kidneys are normal. No ascites or pelvic free fluid. No enlarged abdominal or pelvic lymph nodes. Moderate quantity of stool in the colon is present. Cholecystectomy evident. There is no bowel obstruction. Submucosal fat is noted involving the colon. Suture material about the cecum noted. No appendix identified. Circumferential thickening of left upper quadrant jejunal loops of bowel may represent contraction or spasm. Supraumbilical ventral hernia defect measuring 0.9 cm transverse with minimal herniated omental fat evident. Impression: Minimal ventral hernia in the supraumbilical region containing omental fat. No suspicious acute inflammatory processes. Submucosal fat involving the colon. Correlate with previous history of colitis. Electronically signed by: Eduardo Miner MD (08/25/2018 10:28 PM) [facility]
[2018-08-25] MEDS ORDERED: CIPR500T PO (22:48)
[2018-08-25] MEDS ORDERED: METR500T PO (22:50)
[2018-08-25] MEDS ORDERED: ONDA4TAB12 PO (22:50)
[2018-08-25] MEDS ORDERED: OXYC5CAP PO (22:50)
[2018-08-25 23:15] VITALS: BP 124/70
[2018-08-27] MEDS ORDERED: ALPR1TAB PO (11:58)
== END 2018-08-25 23:39 | disposition home or self-care (01) ==
LOC: ER 20:15
DX: R10.32 Left lower quadrant pain (principal); R11.0 Nausea; R19.7 Diarrhea, unspecified; F41.9 Anxiety disorder, unspecified; K21.9 Gastro-esophageal reflux disease without esophagitis; E78.00 Pure hypercholesterolemia, unspecified; Z86.2 Personal history of diseases of the blood and blood-forming organs and certain disorders involving the immune mechanism; Z90.89 Acquired absence of other organs; Z90.49 Acquired absence of other specified parts of digestive tract; Z90.710 Acquired absence of both cervix and uterus; Z88.1 Allergy status to other antibiotic agents; Z88.8 Allergy status to other drugs, medicaments and biological substances
CPT/HCPCS: 36415; 74177; 80048; 80076; 81001; 83690; 85025; 96361; 96374; 96375; 96376; 99285; J2405; J3010; J7030; Q9967

== ENCOUNTER 2018-09-06 16:00 | Emergency (ER) | payer OTHER ==
[~2018-09-06] VITALS: Ht 162.6 cm; Wt 115.7 kg
[~2018-09-06 16:00] MED LIST changes: +CIPR500T PO; +ONDA4TAB12 PO; +OXYC5CAP PO
[2018-09-06] MEDS ORDERED: ONDANSETRON PF 4 MG/2 ML VIAL. IV ONE (16:45)
[2018-09-06] MEDS ORDERED: MORPHINE SULFATE 10 MG/ML VIAL. IV ONE (16:45)
--- NOTE | 2018-09-06 16:45 | PHYS DOC ---
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 Patient had a CT angiogram of her abdomen and pelvis which showed a mesenteric arteries. Patient was initially treated for possible colitis and completed brief course of antibiotics. Most recently she was discharged home with pain medication and steroids with instructions to follow-up with GI. However, the patient states her pain and bloody diarrhea return this afternoon. Denies fever chills, and sweats. Patient's, shortness of breath. Appears to be very anxious upon entering the room with status during history. Patient is not on blood thinners. No other acute symptoms or complaints.[] Review of Systems Review of Systems Review symptoms as per history of present illness. [] All other systems were reviewed and found to be within normal limits, except as documented in this note. Current Medications Current Medications Current Medications Medications (Trade) Dose Ordered Sig/Ga Start Time Stop Time Status Last Admin Dose Admin Morphine Sulfate (Morphine Sulfate) 5 mg 1X ONCE 09/06/18 16:45 09/06/18 16:46 DC 09/06/18 16:53 5 MG Ondansetron HCl (Zofran) 4 mg 1X ONCE 09/06/18 16:45 09/06/18 16:46 DC 09/06/18 16:52 4 MG Allergies Allergies Allergies Coded Allergies Type Severity Reaction Last Updated Verified cephalexin Allergy Intermediate rash, red ears 08/29/18 Yes prochlorperazine Allergy Intermediate 11/24/16 Yes Physical Exam Physical Exam Constitutional: Well developed, well nourished, anxious, tearful. [] HENT: Normocephalic, atraumatic, bilateral external ears normal, oropharynx moist, nose normal. [] Eyes: PERRL. [] Neck: Normal range of motion. [] Cardiovascular:Heart rate regular rhythm, no murmur. [] Lungs & Thorax: Bilateral breath sounds clear to auscultation [] Abdomen: Bowel sounds normal, soft, diffuse lower quadrant/suprapubic abdominal pain. [] Skin: Warm, dry, no erythema. [] Back: No tenderness. [] Extremities: No tenderness, no edema. [] Neurologic: Alert and oriented X 3, normal motor function, normal sensory function, no focal deficits noted. [] Psychologic: Affect normal, judgement normal, mood normal. [] Current Patient Data Vital Signs Vital Signs Date Time Temp Pulse Resp B/P (MAP) Pulse Ox O2 Delivery O2 Flow Rate FiO2 09/06/18 16:53 16 96 09/06/18 16:15 98.7 95 154/92 (112) Room Air 98.7 Lab Values Laboratory Tests Test 09/06/18 16:44 White Blood Count 4.3 x10^3/uL (4.0-11.0) Red Blood Count 3.56 x10^6/uL (3.50-5.40) Hemoglobin 9.0 g/dL (12.0-15.5) L Hematocrit 27.4 % (36.0-47.0) L Mean Corpuscular Volume 77 fL (79-100) L Mean Corpuscular Hemoglobin 25 pg (25-35) Mean Corpuscular Hemoglobin Concent 33 g/dL (31-37) Red Cell Distribution Width 17.5 % (11.5-14.5) H Platelet Count 228 x10^3/uL (140-400) Neutrophils (%) (Auto) 75 % (31-73) H Lymphocytes (%) (Auto) 16 % (24-48) L Monocytes (%) (Auto) 8 % (0-9) Eosinophils (%) (Auto) 2 % (0-3) Basophils (%) (Auto) 0 % (0-3) Neutrophils # (Auto) 3.2 x10^3uL (1.8-7.7) Lymphocytes # (Auto) 0.7 x10^3/uL (1.0-4.8) L Monocytes # (Auto) 0.3 x10^3/uL (0.0-1.1) Eosinophils # (Auto) 0.1 x10^3/uL (0.0-0.7) Basophils # (Auto) 0.0 x10^3/uL (0.0-0.2) Sodium Level 141 mmol/L (136-145) Potassium Level 3.2 mmol/L (3.5-5.1) L Chloride Level 103 mmol/L (98-107) Carbon Dioxide Level 28 mmol/L (21-32) Anion Gap 10 (6-14) Blood Urea Nitrogen 11 mg/dL (7-20) Creatinine 0.8 mg/dL (0.6-1.0) Estimated GFR (Cockcroft-Gault) 76.2 Glucose Level 224 mg/dL (70-99) H Lactic Acid Level 1.6 mmol/L (0.4-2.0) Calcium Level 8.5 mg/dL (8.5-10.1) Laboratory Tests 09/06/18 16:44 Laboratory Tests 09/06/18 16:44 EKG EKG [] Radiology/Procedures Radiology/Procedures [] Course & Med Decision Making Course & Med Decision Making Pertinent Labs and Imaging studies reviewed. (See chart for details) [Chronic rectal pain with intermittent rectal bleeding with history of rectal ulcers, inflammatory bowel disease with recent hospital admission and diagnosis of proctitis. Patient's white blood cell count normal hemoglobin stable. Lactic acid is negative. Case discussed and reviewed in detail with Dr. Arambula who recently saw the patient in the hospital. Recommendations are for outpatient prednisone 20 mg for the next 2 to weeks with office follow-up. Patient does have pain medication at home. Return precautions reviewed.] Dragon Disclaimer Dragon Disclaimer This electronic medical record was generated, in whole or in part, using a voice recognition dictation system. Departure Departure Impression: Primary Impression: Lower abdominal pain Additional Impression: Bloody diarrhea Disposition: 01 HOME, SELF-CARE Condition: GOOD Referrals: UNKNOWN PCP NAME (PCP) Patient Instructions: Proctitis Additional Instructions: Please continue home pain medication and mesalamine. Take prednisone 20 mg daily for the next [address] Arambula's office confirm outpatient appointment time. Return to the ED if new or worsening symptoms Problem Qualifiers ENMA PARRY DO Sep 06, 2018 16:45
[2018-09-06 16:53] LABS: BASO % 0 % (0-3); EOS # 0.1 x10^3/uL (0.0-0.7); EOS % 2 % (0-3); HEMATOCRIT 27.4 % (36.0-47.0); LYMPH # 0.7 x10^3/uL (1.0-4.8); LYMPH % 16 % (24-48); MEAN CORPUSCULAR HEMOGLOBIN 25 pg (25-35); MEAN CORPUSCULAR HGB CONC 33 g/dL (31-37); MEAN CORPUSCULAR VOLUME 77 fL (79-100); MONO # 0.3 x10^3/uL (0.0-1.1); MONO % 8 % (0-9); NEUT # 3.2 x10^3uL (1.8-7.7); NEUT % 75 % (31-73); PLATELET COUNT 228 x10^3/uL (140-400); RED BLOOD COUNT 3.56 x10^6/uL (3.50-5.40); RED CELL DISTRIBUTION WIDTH 17.5 % (11.5-14.5); WHITE BLOOD COUNT 4.3 x10^3/uL (4.0-11.0)
[2018-09-06 17:02] LABS: CALCIUM 8.5 mg/dL (8.5-10.1); CREATININE 0.8 mg/dL (0.6-1.0); GFR 76.2; POTASSIUM 3.2 mmol/L (3.5-5.1)
[2018-09-06 17:20] VITALS: BP 137/74
[2018-09-06] MEDS ORDERED: predniSONE 20 MG TABLET PO ONE (17:45)
[2018-09-06] MEDS ORDERED: oxyCODONE/APAP 10/325 1 TAB TABLET PO ONE (17:45)
== END 2018-09-06 18:00 | disposition home or self-care (01) ==
LOC: ER 16:00
DX: R10.30 Lower abdominal pain, unspecified (principal); R10.84 Generalized abdominal pain; R19.7 Diarrhea, unspecified; K92.1 Melena; K21.9 Gastro-esophageal reflux disease without esophagitis; E78.00 Pure hypercholesterolemia, unspecified; Z90.49 Acquired absence of other specified parts of digestive tract; Z90.89 Acquired absence of other organs; Z90.710 Acquired absence of both cervix and uterus; Z98.890 Other specified postprocedural states; Z86.010 Personal history of colon polyps; Z88.1 Allergy status to other antibiotic agents; Z88.8 Allergy status to other drugs, medicaments and biological substances
CPT/HCPCS: 36415; 80048; 83605; 85025; 96374; 96375; 99284; J2270; J2405; J7512

== ENCOUNTER 2018-09-13 15:52 | Emergency (ER) | payer OTHER ==
[~2018-09-13] VITALS: Ht 162.6 cm; Wt 115.7 kg
[~2018-09-13 15:52] MED LIST changes: +HYDR-3164 PO; -HYDR-971 PO
[2018-09-13] MEDS ORDERED: IV NORMAL SALINE 1000ML BAG 1,000 ML IV SCH (16:45)
[2018-09-13] MEDS ORDERED: MORPHINE SULFATE 4 MG/ML VIAL. IV ONE ×2 (16:45→19:00)
--- NOTE | 2018-09-13 16:56 | PHYS DOC ---
Past Medical History Past Medical History: Anemia, Anxiety, GERD, High Cholesterol, Other Additional Past Medical Histor: COLITIS; ulcer on rectal wall Past Surgical History: Appendectomy, Cholecystectomy, Hysterectomy, Other Additional Past Surgical Histo: HERNIA REPAIR, FISTUAL REPAIR, RECTAL PROLAPSE REPAIR Alcohol Use: Occasionally Drug Use: None Adult General Chief Complaint Chief Complaint: RECTAL BLEED [facility] HPI Patient is a 48-year-old female who presents to the emergency department for evaluation. She states that this morning she began having some loose stools and bloody stools. She has had similar symptoms several times in the past and was evaluated in this emergency department several times for this over the past few weeks. She was seen with elevated lactic acid on a prior visit, and there was some concern about the possibility of ischemic bowel, and a CT angiogram was then performed. The patient has been seen by gastroenterology and she has a history of inflammatory bowel disease, according to reports. She states she last had a colonoscopy done at [facility] a few months ago and was told there were ulcerative lesions which were bleeding in her rectum. She did finish a course of prednisone prescribed during her last hospitalization and has continued to take it. She does report some generalized lower abdominal pain similar pain that she has had when she has had prior flareups of her symptoms. She does take pain medication at home, hydrocodone, and does have some tablets at home. She is scheduled to see a colorectal surgeon for a "second opinion" on 10/03. There are no alleviating or exacerbating factors to the patient's symptoms. She does not take any blood thinners.Her recent hospital stays as well as recent imaging reports have been reviewed. Review of Systems Review of Systems Constitutional: Denies fever or chills [] Eyes: Denies change in visual acuity, redness, or eye pain [] HENT: Denies nasal congestion or sore throat [] Respiratory: Denies cough or shortness of breath [] Cardiovascular: The patient denies any shortness of breath, chest pain, palpitations, or orthopnea[] GI: No additional information not addressed in HPI [] : Denies dysuria or hematuria [] Musculoskeletal: Denies back pain or joint pain [] Integument: Denies rash or skin lesions [] Neurologic: Denies headache, focal weakness or sensory changes [] Endocrine: Denies polyuria or polydipsia [] All other systems were reviewed and found to be within normal limits, except as documented in this note. Current Medications Current Medications Current Medications Medications (Trade) Dose Ordered Sig/Ga Start Time Stop Time Status Last Admin Dose Admin Morphine Sulfate (Morphine Sulfate) 4 mg 1X ONCE 09/13/18 19:00 09/13/18 19:02 DC Sodium Chloride 1,000 ml @ 1,000 mls/hr Q1H 09/13/18 16:45 09/13/18 17:44 DC 09/13/18 17:03 1,000 MLS/HR Allergies Allergies Allergies Coded Allergies Type Severity Reaction Last Updated Verified cephalexin Allergy Intermediate rash, red ears 08/29/18 Yes prochlorperazine Allergy Intermediate 11/24/16 Yes Physical Exam Physical Exam PHYSICAL EXAM: CONSTITUTIONAL: Well developed, well nourished HEAD: normocephalic, atraumatic EENT: PERRL, EOMI. Conjunctivae normal color, sclerae non-icteric; moist mucous membranes. NECK: Supple, non-tender; no meningismus. LUNGS: Lungs CTA, breathing even and unlabored. Normal air movement. HEART: Regular rate and rhythm, no murmur CHEST: No deformity; non-tender ABDOMEN: The abdomen is soft, is diffuse tenderness to palpation of the lower abdomen, without rebound or guarding. no masses or bruits. EXTREM: Normal ROM; no deformity, no calf tenderness. Normal pulses palpable in all extremities. There is no pedal edema. SKIN: No rash; no diaphoresis NEURO: Alert; normal speech and cognition; CN's grossly intact; strength grossly intact without focal deficit. BACK: No CVA TTP. RECTAL EXAM: There are no perianal lesions noted. There is a small amount of brown mucus which was sent to lab for Hemoccult analysis. No palpable masses were noted. Exam was performed in the presence of the patient's nurse, [place] Current Patient Data Vital Signs Vital Signs Date Time Temp Pulse Resp B/P (MAP) Pulse Ox O2 Delivery O2 Flow Rate FiO2 09/13/18 16:18 99.4 110 16 147/100 (116) 99 Room Air 99.4 Lab Values Laboratory Tests Test 09/13/18 16:38 09/13/18 16:54 Stool Occult Blood Positive (NEG) White Blood Count 7.3 x10^3/uL (4.0-11.0) Red Blood Count 3.58 x10^6/uL (3.50-5.40) Hemoglobin 9.1 g/dL (12.0-15.5) L Hematocrit 27.8 % (36.0-47.0) L Mean Corpuscular Volume 78 fL (79-100) L Mean Corpuscular Hemoglobin 25 pg (25-35) Mean Corpuscular Hemoglobin Concent 33 g/dL (31-37) Red Cell Distribution Width 17.0 % (11.5-14.5) H Platelet Count 231 x10^3/uL (140-400) Neutrophils (%) (Auto) 83 % (31-73) H Lymphocytes (%) (Auto) 10 % (24-48) L Monocytes (%) (Auto) 6 % (0-9) Eosinophils (%) (Auto) 1 % (0-3) Basophils (%) (Auto) 1 % (0-3) Neutrophils # (Auto) 6.0 x10^3uL (1.8-7.7) Lymphocytes # (Auto) 0.7 x10^3/uL (1.0-4.8) L Monocytes # (Auto) 0.4 x10^3/uL (0.0-1.1) Eosinophils # (Auto) 0.0 x10^3/uL (0.0-0.7) Basophils # (Auto) 0.0 x10^3/uL (0.0-0.2) Segmented Neutrophils % 80 % (35-66) H Lymphocytes % 14 % (24-48) L Monocytes % 6 % (0-10) Platelet Estimate Adequate (ADEQUATE) Prothrombin Time 11.7 SEC (11.7-14.0) Prothrombin Time INR 0.9 (0.8-1.1) PTT 23 SEC (24-38) L Sodium Level 139 mmol/L (136-145) Potassium Level 3.3 mmol/L (3.5-5.1) L Chloride Level 101 mmol/L (98-107) Carbon Dioxide Level 29 mmol/L (21-32) Anion Gap 9 (6-14) Blood Urea Nitrogen 12 mg/dL (7-20) Creatinine 0.8 mg/dL (0.6-1.0) Estimated GFR (Cockcroft-Gault) 76.2 BUN/Creatinine Ratio 15 (6-20) Glucose Level 229 mg/dL (70-99) H Lactic Acid Level 2.5 mmol/L (0.4-2.0) H Calcium Level 8.7 mg/dL (8.5-10.1) Total Bilirubin 0.1 mg/dL (0.2-1.0) L Aspartate Amino Transferase (AST) 11 U/L (15-37) L Alanine Aminotransferase (ALT) 22 U/L (14-59) Alkaline Phosphatase 90 U/L (46-116) Total Protein 6.6 g/dL (6.4-8.2) Albumin 3.1 g/dL (3.4-5.0) L Albumin/Globulin Ratio 0.9 (1.0-1.7) L Lipase 251 U/L (73-393) Laboratory Tests 09/13/18 16:54 Laboratory Tests 09/13/18 16:54 EKG EKG [] Radiology/Procedures Radiology/Procedures [] Course & Med Decision Making Course & Med Decision Making 5:05 PM: I was able to obtain a colonoscopy report from [facility], dated 06/29/18, which did show 6 the patient had some scattered colon polyps removed, and a 5 cm ulcer, solitary, in the rectum with an exposed vessel which was thought to be the cause of the patient's bleeding at that time. Report has been reviewed and will be made part of the patient's medical record. 7:00 PM: The patient's condition remained stable, and her hemoglobin is a same as her baseline. I discussed the case with Dr. Talamantes, who is familiar with the patient. He states that despite the patient's long-standing history of multiple visits to the ER at this facility, the patient does not follow up in the office. He had no recommendations at this time, other than arranging outpatient follow-up. The patient's condition remained stable. She does seem to be focused on her pain, which is likely chronic, as it appears that this is been a recurrent problem with the patient with multiple visits to this facility for the same. I discussed test results with the patient, the importance of close follow-up, and return precautions in detail. Pertinent Labs and Imaging studies reviewed. (See chart for details) [] Dragon Disclaimer Dragon Disclaimer This electronic medical record was generated, in whole or in part, using a voice recognition dictation system. Departure Departure Impression: Primary Impression: Chronic abdominal pain Additional Impression: Rectal bleeding Disposition: 01 HOME, SELF-CARE Condition: STABLE Referrals: UNKNOWN PCP NAME (PCP) DAKSHA LEA MD Patient Instructions: Abdominal Pain, Chronic Pain, Rectal Bleeding Problem Qualifiers MEHREEN PECK MD Sep 13, 2018 16:56
[2018-09-13 17:01] LABS: FECAL OB PT POSITIVE (NEG)
[2018-09-13 17:11] LABS: BASO % 1 % (0-3); EOS % 1 % (0-3); HEMATOCRIT 27.8 % (36.0-47.0); HEMOGLOBIN 9.1 g/dL (12.0-15.5); LYMPH # 0.7 x10^3/uL (1.0-4.8); LYMPH % 10 % (24-48); MEAN CORPUSCULAR HEMOGLOBIN 25 pg (25-35); MEAN CORPUSCULAR HGB CONC 33 g/dL (31-37); MEAN CORPUSCULAR VOLUME 78 fL (79-100); MONO # 0.4 x10^3/uL (0.0-1.1); MONO % 6 % (0-9); NEUT % 83 % (31-73); PLATELET COUNT 231 x10^3/uL (140-400); RED BLOOD COUNT 3.58 x10^6/uL (3.50-5.40); WHITE BLOOD COUNT 7.3 x10^3/uL (4.0-11.0)
[2018-09-13 17:14] LABS: PROTHROMBIN TIME PATIENT 11.7 SEC (11.7-14.0)
[2018-09-13 17:32] LABS: CALCIUM 8.7 mg/dL (8.5-10.1); CREATININE 0.8 mg/dL (0.6-1.0); GFR 76.2; POTASSIUM 3.3 mmol/L (3.5-5.1)
[2018-09-13 17:38] LABS: ALBUMIN 3.1 g/dL (3.4-5.0); ALBUMIN/GLOBULIN RATIO 0.9 (1.0-1.7); TOTAL BILIRUBIN 0.1 mg/dL (0.2-1.0); TOTAL PROTEIN 6.6 g/dL (6.4-8.2)
[2018-09-13 17:41] LABS: % LYMPHS 14 % (24-48); % MONOS 6 % (0-10); % SEGS 80 % (35-66); PLT ESTIMATE ADEQUATE (ADEQUATE)
[2018-09-13 19:22] VITALS: BP 151/95
== END 2018-09-13 19:24 | disposition home or self-care (01) ==
LOC: ER 15:52
DX: K62.5 Hemorrhage of anus and rectum (principal); G89.29 Other chronic pain; R10.84 Generalized abdominal pain; R19.7 Diarrhea, unspecified; K21.9 Gastro-esophageal reflux disease without esophagitis; E78.00 Pure hypercholesterolemia, unspecified; Z90.89 Acquired absence of other organs; Z90.710 Acquired absence of both cervix and uterus; Z90.49 Acquired absence of other specified parts of digestive tract; Z98.890 Other specified postprocedural states; Z88.1 Allergy status to other antibiotic agents; Z88.8 Allergy status to other drugs, medicaments and biological substances
CPT/HCPCS: 36415; 80053; 82274; 83605; 83690; 85007; 85025; 85610; 85730; 86850; 86900; 86901; 96361; 96374; 96376; 99283; J2270; J7030

== ENCOUNTER 2018-09-16 14:58 | Emergency (ER) | payer OTHER ==
[~2018-09-16] VITALS: Ht 165.1 cm; Wt 115.7 kg
[2018-09-16 16:11] VITALS: BP 161/104
--- NOTE | 2018-09-17 15:49 | PHYS DOC ---
Past Medical History Past Medical History: Anemia, Anxiety, GERD, High Cholesterol, Other Additional Past Medical Histor: COLITIS; ulcer on rectal wall Past Surgical History: Appendectomy, Cholecystectomy, Hysterectomy, Other Additional Past Surgical Histo: HERNIA REPAIR, FISTUAL REPAIR, RECTAL PROLAPSE REPAIR Alcohol Use: Occasionally Drug Use: None Adult General Chief Complaint Chief Complaint: RECTAL BLEED HPI HPI Patient is a 48 year old female who presents with complaints of rectal bleeding. The patient is well-known to this facility has been here multiple times for the same complaint. Upon entering her room I did ask her she had followed up with a GI specialist. She was seen at this facility 3 days prior for the exact same complaint and told to follow-up with Dr. Talamantes. She got very defensive and stated that she tried to call the office today but they were closed for black Wednesday. She then immediately started talking about how much pain she was in. I did let her know while I was happy to treat her pain and would not be with narcotic pain medication. She immediately jumped out of the bed cursing and stated that she was not staying and she was not going to remain in this emergency department. I offered to draw labs and a workup. The patient refused. She was getting dressed the entire time and immediately left her room to department. No exam was performed as she left before we could start an exam. Review of Systems Review of Systems Unable to obtain. Allergies Allergies Allergies Coded Allergies Type Severity Reaction Last Updated Verified cephalexin Allergy Intermediate rash, red ears 08/29/18 Yes prochlorperazine Allergy Intermediate 11/24/16 Yes Physical Exam Physical Exam No exam performed. Current Patient Data Vital Signs Vital Signs Date Time Temp Pulse Resp B/P (MAP) Pulse Ox O2 Delivery O2 Flow Rate FiO2 09/16/18 16:11 98.5 94 16 161/104 (123) 98 Room Air 98.5 EKG EKG [] Radiology/Procedures Radiology/Procedures [] Course & Med Decision Making Course & Med Decision Making Pertinent Labs and Imaging studies reviewed. (See chart for details) [] Dragon Disclaimer Dragon Disclaimer This electronic medical record was generated, in whole or in part, using a voice recognition dictation system. Departure Departure Impression: Primary Impression: Left against medical advice Disposition: 07 AGAINST MEDICAL ADVICE Referrals: UNKNOWN PCP NAME (PCP) MIRIAM RESTREPO [employer] Sep 17, 2018 15:49
== END 2018-09-16 16:15 | disposition left against medical advice (07) ==
LOC: ER 14:58
DX: K62.5 Hemorrhage of anus and rectum (principal); K21.9 Gastro-esophageal reflux disease without esophagitis; E78.00 Pure hypercholesterolemia, unspecified; Z90.710 Acquired absence of both cervix and uterus; Z90.89 Acquired absence of other organs; Z90.49 Acquired absence of other specified parts of digestive tract; Z98.890 Other specified postprocedural states; Z88.1 Allergy status to other antibiotic agents; Z88.8 Allergy status to other drugs, medicaments and biological substances
CPT/HCPCS: 99283

== ENCOUNTER 2018-10-09 19:47 | Emergency (ER) | payer OTHER ==
[~2018-10-09] VITALS: Ht 165.1 cm; Wt 115.7 kg
[~2018-10-09 19:47] MED LIST changes: -HYDR-2758 PO; +HYDR-2761 PO; -OXYC-323 PO; +OXYC1TAB15 PO
[2018-10-09] MEDS ORDERED: IV NORMAL SALINE 1000ML BAG 1,000 ML IV ONE (20:15)
[2018-10-09 20:22] LABS: BILIRUBIN,URINE NEGATIVE (NEG); CLARITY,URINE CLEAR; COLOR,URINE YELLOW; NITRITE,URINE NEGATIVE (NEG); PROTEIN,URINE NEGATIVE (NEG-TRACE); UROBILINOGEN,URINE 0.2 mg/dL (0.2 mg/dL)
--- NOTE | 2018-10-09 20:25 | PHYS DOC ---
Past Medical History Past Medical History: Anemia, Anxiety, GERD, High Cholesterol, Other Additional Past Medical Histor: COLITIS; ulcer on rectal wall Past Surgical History: Appendectomy, Cholecystectomy, Hysterectomy, Other Additional Past Surgical Histo: HERNIA REPAIR, FISTUAL REPAIR, RECTAL PROLAPSE REPAIR Alcohol Use: Occasionally Drug Use: None Adult General Chief Complaint Chief Complaint: ABDOMINAL PAIN [facility] HPI Patient is a 48 year old female who presents with abdominal pain. Patient presents the ER complaining of acute on chronic lower abdominal pain. The patient has been having pain for years. She states the pain became worse today. She has some nausea but no vomiting. No fever or chills. Denies urinary symptoms. The patient is very well-known to this emergency department. She frequently presents with abdominal pain. She is documented not to follow-up with GI as directed. 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 She could not tell me the name of the physician. Her presentation this evening is no different from the many prior presentations documented. There haven't been no positive findings on her workups in the past. She does have some CT findings suspicious for proctitis but these have been stable over the last year and not worsening. Review of Systems Review of Systems Constitutional: Denies fever or chills Eyes: Denies change in visual acuity HENT: Denies nasal congestion Respiratory: Denies cough or shortness of breath Cardiovascular: No additional information not addressed in HPI GI: as documented above : Denies dysuria Musculoskeletal: Denies back pain Integument: Denies rash Neurologic: Denies headache Endocrine: Denies polyuria All other systems were reviewed and found to be within normal limits, except as documented in this note. Current Medications Current Medications Current Medications Medications (Trade) Dose Ordered Sig/Ga Start Time Stop Time Status Last Admin Dose Admin Ondansetron HCl (Zofran) 4 mg 1X ONCE 10/09/18 20:45 10/09/18 20:46 DC 10/09/18 20:44 4 MG Sodium Chloride 1,000 ml @ 1,000 mls/hr 1X ONCE 10/09/18 20:15 10/09/18 21:14 DC 10/09/18 20:20 1,000 MLS/HR Allergies Allergies Allergies Coded Allergies Type Severity Reaction Last Updated Verified cephalexin Allergy Intermediate rash, red ears 08/29/18 Yes prochlorperazine Allergy Intermediate 11/24/16 Yes Physical Exam Physical Exam Constitutional: Well developed, well nourished, no acute distress, non-toxic appearance HENT: Normocephalic, atraumatic, bilateral external ears normal, oropharynx moist Eyes: PERRLA, EOMI Neck: Normal range of motion Cardiovascular:Heart rate regular rhythm, no murmur Lungs & Thorax: Bilateral breath sounds clear to auscultation Abdomen: Bowel sounds normal, soft, no tenderness Skin: Warm, dry, no erythema, no rash Extremities: No edema Neurologic: Alert and oriented X 3 Psychologic: Affect normal Current Patient Data Vital Signs Vital Signs Date Time Temp Pulse Resp B/P (MAP) Pulse Ox O2 Delivery O2 Flow Rate FiO2 10/09/18 19:49 98.3 120 18 167/90 (115) 97 Room Air 98.3 Lab Values Laboratory Tests Test 10/09/18 19:55 10/09/18 20:03 10/09/18 20:20 10/09/18 20:35 Urine Collection Type Unknown Urine Color Yellow Urine Clarity Clear Urine pH 6.0 Urine Specific [place] 1.015 Urine Protein Negative mg/dL (NEG-TRACE) Urine Glucose (UA) Negative mg/dL (NEG) Urine Ketones (Stick) Negative mg/dL (NEG) Urine Blood Trace (NEG) Urine Nitrite Negative (NEG) Urine Bilirubin Negative (NEG) Urine Urobilinogen Dipstick 0.2 mg/dL (0.2 mg/dL) Urine Leukocyte Esterase Trace (NEG) Urine RBC 0 /HPF (0-2) Urine WBC 1-4 /HPF (0-4) Urine Squamous Epithelial Cells Few /LPF Urine Transitional Epithelial Cells Occ /LPF Urine Renal Epithelial Cells Occ /LPF Urine Bacteria Few /HPF (0-FEW) Urine Mucus Mod /LPF POC Urine HCG, Qualitative Hcg negative (Negative) White Blood Count 4.9 x10^3/uL (4.0-11.0) Red Blood Count 3.28 x10^6/uL (3.50-5.40) L Hemoglobin 8.2 g/dL (12.0-15.5) L Hematocrit 25.0 % (36.0-47.0) L Mean Corpuscular Volume 76 fL (79-100) L Mean Corpuscular Hemoglobin 25 pg (25-35) Mean Corpuscular Hemoglobin Concent 33 g/dL (31-37) Red Cell Distribution Width 16.2 % (11.5-14.5) H Platelet Count 320 x10^3/uL (140-400) Neutrophils (%) (Auto) 73 % (31-73) Lymphocytes (%) (Auto) 15 % (24-48) L Monocytes (%) (Auto) 9 % (0-9) Eosinophils (%) (Auto) 3 % (0-3) Basophils (%) (Auto) 1 % (0-3) Neutrophils # (Auto) 3.5 x10^3uL (1.8-7.7) Lymphocytes # (Auto) 0.8 x10^3/uL (1.0-4.8) L Monocytes # (Auto) 0.4 x10^3/uL (0.0-1.1) Eosinophils # (Auto) 0.1 x10^3/uL (0.0-0.7) Basophils # (Auto) 0.0 x10^3/uL (0.0-0.2) Sodium Level 140 mmol/L (136-145) Potassium Level 3.4 mmol/L (3.5-5.1) L Chloride Level 102 mmol/L (98-107) Carbon Dioxide Level 27 mmol/L (21-32) Anion Gap 11 (6-14) Blood Urea Nitrogen 10 mg/dL (7-20) Creatinine 0.7 mg/dL (0.6-1.0) Estimated GFR (Cockcroft-Gault) 88.9 Glucose Level 175 mg/dL (70-99) H Calcium Level 9.3 mg/dL (8.5-10.1) Total Bilirubin 0.2 mg/dL (0.2-1.0) Direct Bilirubin 0.1 mg/dL (0.0-0.2) Aspartate Amino Transferase (AST) 17 U/L (15-37) Alanine Aminotransferase (ALT) 36 U/L (14-59) Alkaline Phosphatase 134 U/L (46-116) H Total Protein 7.3 g/dL (6.4-8.2) Albumin 3.2 g/dL (3.4-5.0) L Lipase 179 U/L (73-393) Lactic Acid Level 1.7 mmol/L (0.4-2.0) Laboratory Tests 10/09/18 20:20 Laboratory Tests 18 20:20 EKG EKG [] Radiology/Procedures Radiology/Procedures [] Course & Med Decision Making Course & Med Decision Making Pertinent Labs and Imaging studies reviewed. (See chart for details) 20:10: Patient is seen and examined. Her abdominal exam is benign. She is noted to be mildly tachycardic. IV fluids are ordered along with abdominal pain workup. 21:20: All labs are reviewed. There are no acute findings. The patient's hemoglobin is 8.2 which is baseline for her. Her abdominal exam is benign. The patient did not receive opiate pain medications in the emergency department. She is requesting fentanyl prior to discharge. The patient is upset that she did not receive pain medication. She is tearful in the room and insistent that she should be given some medications. By my assessment this evening, the patient is at baseline. She has multiple workups for abdominal pain which are primarily all negative for any acute findings. Based on her physical examination this evening, imaging is not warranted. As a compromise, I offered her a few hydrocodone to take at home but she declined stating these would not help her. I recommended that the patient follow up with her GI doctor and her primary care doctor for her chronic pain control and that she not come to the emergency department for chronic pain related symptoms in the future. Rather, come back for any acute changes only. Dragon Disclaimer Dragon Disclaimer This electronic medical record was generated, in whole or in part, using a voice recognition dictation system. Departure Departure Disposition: HOME, SELF-CARE Condition: STABLE Referrals: UNKNOWN PCP NAME (PCP) KAN STEVENS DO Oct 09, 2018 20:25
[2018-10-09 20:29] LABS: BACTERIA,URINE FEW /HPF (0-FEW); RBC,URINE 0 /HPF (0-2); SQUAMOUS EPITHELIAL CELL,UR FEW /LPF
[2018-10-09 20:31] LABS: BASO % 1 % (0-3); EOS # 0.1 x10^3/uL (0.0-0.7); EOS % 3 % (0-3); HEMOGLOBIN 8.2 g/dL (12.0-15.5); LYMPH # 0.8 x10^3/uL (1.0-4.8); LYMPH % 15 % (24-48); MEAN CORPUSCULAR HEMOGLOBIN 25 pg (25-35); MEAN CORPUSCULAR HGB CONC 33 g/dL (31-37); MEAN CORPUSCULAR VOLUME 76 fL (79-100); MONO # 0.4 x10^3/uL (0.0-1.1); MONO % 9 % (0-9); NEUT # 3.5 x10^3uL (1.8-7.7); NEUT % 73 % (31-73); PLATELET COUNT 320 x10^3/uL (140-400); RED BLOOD COUNT 3.28 x10^6/uL (3.50-5.40); RED CELL DISTRIBUTION WIDTH 16.2 % (11.5-14.5); WHITE BLOOD COUNT 4.9 x10^3/uL (4.0-11.0)
[2018-10-09 20:36] LABS: CALCIUM 9.3 mg/dL (8.5-10.1); CREATININE 0.7 mg/dL (0.6-1.0); GFR 88.9; POTASSIUM 3.4 mmol/L (3.5-5.1)
[2018-10-09 20:42] LABS: ALBUMIN 3.2 g/dL (3.4-5.0); DIRECT BILIRUBIN 0.1 mg/dL (0.0-0.2); TOTAL BILIRUBIN 0.2 mg/dL (0.2-1.0); TOTAL PROTEIN 7.3 g/dL (6.4-8.2)
[2018-10-09] MEDS ORDERED: ONDANSETRON PF 4 MG/2 ML VIAL. IV ONE (20:45)
[2018-10-09 21:00] VITALS: BP 149/82
== END 2018-10-09 21:25 | disposition home or self-care (01) ==
LOC: ER 19:47
DX: G89.29 Other chronic pain (principal); R10.30 Lower abdominal pain, unspecified; K21.9 Gastro-esophageal reflux disease without esophagitis; E78.00 Pure hypercholesterolemia, unspecified; Z90.89 Acquired absence of other organs; Z90.710 Acquired absence of both cervix and uterus; Z90.49 Acquired absence of other specified parts of digestive tract; Z98.890 Other specified postprocedural states; Z88.1 Allergy status to other antibiotic agents; Z88.8 Allergy status to other drugs, medicaments and biological substances
CPT/HCPCS: 36415; 80048; 80076; 81001; 81025; 83605; 83690; 85025; 96374; 99284; J2405; J7030

== ENCOUNTER 2018-11-22 22:51 | Emergency (ER) | payer OTHER ==
[~2018-11-22] VITALS: Ht 162.6 cm; Wt 113.4 kg
[~2018-11-22 22:51] MED LIST changes: +OMEP20CA10 PO; -OMEP20CA9 PO; -PANT40TA3 PO; +PANT40TA77 PO
[2018-11-22] MEDS ORDERED: fentaNYL PF VIAL 100 MCG/2 ML VIAL IV PRN (23:00)
[2018-11-22] MEDS ORDERED: IV NORMAL SALINE 1000ML BAG 1,000 ML IV SCH (23:00)
[2018-11-22] MEDS ORDERED: ONDANSETRON PF 4 MG/2 ML VIAL. IV ONE (23:15)
[2018-11-22 23:18] LABS: BASO % 1 % (0-3); EOS # 0.4 x10^3/uL (0.0-0.7); EOS % 6 % (0-3); HEMATOCRIT 26.3 % (36.0-47.0); HEMOGLOBIN 8.3 g/dL (12.0-15.5); LYMPH # 0.9 x10^3/uL (1.0-4.8); LYMPH % 14 % (24-48); MEAN CORPUSCULAR HEMOGLOBIN 23 pg (25-35); MEAN CORPUSCULAR HGB CONC 31 g/dL (31-37); MEAN CORPUSCULAR VOLUME 73 fL (79-100); MONO # 0.5 x10^3/uL (0.0-1.1); MONO % 9 % (0-9); NEUT # 4.4 x10^3uL (1.8-7.7); NEUT % 71 % (31-73); PLATELET COUNT 320 x10^3/uL (140-400); RED BLOOD COUNT 3.63 x10^6/uL (3.50-5.40); RED CELL DISTRIBUTION WIDTH 16.9 % (11.5-14.5); WHITE BLOOD COUNT 6.2 x10^3/uL (4.0-11.0)
[2018-11-22 23:26] LABS: CALCIUM 9.5 mg/dL (8.5-10.1); CREATININE 0.9 mg/dL (0.6-1.0); GFR 66.5; POTASSIUM 3.6 mmol/L (3.5-5.1)
[2018-11-22 23:26] LABS: BILIRUBIN,URINE NEGATIVE (NEG); CLARITY,URINE CLEAR; COLOR,URINE YELLOW; NITRITE,URINE NEGATIVE (NEG); PROTEIN,URINE NEGATIVE (NEG-TRACE); UROBILINOGEN,URINE 0.2 mg/dL (0.2 mg/dL)
[2018-11-22 23:30] LABS: BACTERIA,URINE FEW /HPF (0-FEW); RBC,URINE 0 /HPF (0-2); SQUAMOUS EPITHELIAL CELL,UR FEW /LPF
[2018-11-22 23:31] LABS: ALBUMIN 3.4 g/dL (3.4-5.0); ALBUMIN/GLOBULIN RATIO 0.8 (1.0-1.7); TOTAL BILIRUBIN 0.2 mg/dL (0.2-1.0); TOTAL PROTEIN 7.5 g/dL (6.4-8.2)
[2018-11-22 23:32] LABS: BARBITURATES NEG (NEG); BENZODIAZEPINES POS (NEG); CANNABINOIDS NEG (NEG); COCAINE NEG (NEG); METHADONE NEG (NEG); OPIATES NEG (NEG); PHENCYCLIDINE NEG (NEG)
[2018-11-22 23:36] LABS: PLT ESTIMATE ADEQUATE (ADEQUATE)
[2018-11-22 23:36] LABS: AMPHETAMINE/METHAMPHETAMINE NEG (NEG)
[2018-11-22 23:39] LABS: ANISOCYTOSIS SLIGHT; HYPOCHROMIA MOD; MICROCYTOSIS SLIGHT; POIKILOCYTOSIS SLIGHT
[2018-11-22 23:40] LABS: OVALOCYTES FEW
[2018-11-22 23:57] VITALS: BP 133/82
--- NOTE | 2018-11-23 00:21 | PHYS DOC ---
Past Medical History Past Medical History: Anemia, Anxiety, GERD, High Cholesterol, Other Additional Past Medical Histor: COLITIS; ulcer on rectal wall Past Surgical History: Appendectomy, Cholecystectomy, Hysterectomy, Other Additional Past Surgical Histo: HERNIA REPAIR, FISTUAL REPAIR, RECTAL PROLAPSE REPAIR Alcohol Use: Occasionally Drug Use: None Adult General Chief Complaint Chief Complaint: ABDOMINAL PAIN [facility] HPI is a 48-year-old female who presents with complaint of left lower quadrant abdominal pain that started this morning. She rates pain at an 8 out of 10. She states that she has been nauseated but has had no vomiting. She states that her last bowel movement was this morning and states that was normal. She denies any fever. She states the pain is worsened with movement and with palpation. Patient does have a long history of chronic abdominal pain. Review of Systems Review of Systems Constitutional: Denies fever or chills [] Respiratory: Denies cough or shortness of breath [] Cardiovascular: No additional information not addressed in HPI [] GI: Complains of left lower abdominal pain with nausea. Denies vomiting or diarrhea [] : Denies dysuria or hematuria [] Neurologic: Denies headache, focal weakness or sensory changes [] All other systems were reviewed and found to be within normal limits, except as documented in this note. Current Medications Current Medications Current Medications Medications (Trade) Dose Ordered Sig/[facility] Start Time Stop Time Status Last Admin Dose Admin Fentanyl Citrate (Fentanyl 2ml Vial) 50 mcg PRN Q15MIN PRN 11/22/18 23:00 11/23/18 00:52 DC 11/22/18 23:18 50 MCG Ondansetron HCl (Zofran) 4 mg 1X ONCE 11/22/18 23:15 11/22/18 23:16 DC 11/22/18 23:18 4 MG Sodium Chloride 1,000 ml @ 100 mls/hr Q10H 11/22/18 23:00 11/23/18 00:52 DC 11/22/18 23:19 100 MLS/HR Allergies Allergies Allergies Coded Allergies Type Severity Reaction Last Updated Verified cephalexin Allergy Intermediate rash, red ears 08/29/18 Yes ketorolac Allergy Intermediate HIVES 11/22/18 Yes prochlorperazine Allergy Intermediate 11/24/16 Yes Physical Exam Physical Exam Constitutional: Well developed, well nourished, no acute distress, non-toxic appearance. [] HENT: Normocephalic, atraumatic, bilateral external ears normal, oropharynx moist, no oral exudates, nose normal. [] Eyes: PERRLA, EOMI, conjunctiva normal, no discharge. [] Neck: Normal range of motion, no tenderness, supple, no stridor. [] Cardiovascular:Heart rate regular rhythm, no murmur [] Lungs & Thorax: Bilateral breath sounds clear to auscultation [] Abdomen: Bowel sounds normal, soft, with moderate reported tenderness in left lower abdomen. [] Skin: Warm, dry, no erythema, no rash. [] Extremities: No tenderness, no cyanosis, no clubbing, ROM intact, with 1+ pedal edema. [] Neurologic: Alert and oriented X 3, no focal deficits noted. [] Current Patient Data Vital Signs Vital Signs Date Time Temp Pulse Resp B/P (MAP) Pulse Ox O2 Delivery O2 Flow Rate FiO2 11/22/18 23:57 94 18 133/82 (99) 98 Room Air 11/22/18 22:52 98.6 98.6 Lab Values Laboratory Tests Test 11/22/18 23:07 11/22/18 23:15 White Blood Count 6.2 x10^3/uL (4.0-11.0) Red Blood Count 3.63 x10^6/uL (3.50-5.40) Hemoglobin 8.3 g/dL (12.0-15.5) L Hematocrit 26.3 % (36.0-47.0) L Mean Corpuscular Volume 73 fL (79-100) L Mean Corpuscular Hemoglobin 23 pg (25-35) L Mean Corpuscular Hemoglobin Concent 31 g/dL (31-37) Red Cell Distribution Width 16.9 % (11.5-14.5) H Platelet Count 320 x10^3/uL (140-400) Neutrophils (%) (Auto) 71 % (31-73) Lymphocytes (%) (Auto) 14 % (24-48) L Monocytes (%) (Auto) 9 % (0-9) Eosinophils (%) (Auto) 6 % (0-3) H Basophils (%) (Auto) 1 % (0-3) Neutrophils # (Auto) 4.4 x10^3uL (1.8-7.7) Lymphocytes # (Auto) 0.9 x10^3/uL (1.0-4.8) L Monocytes # (Auto) 0.5 x10^3/uL (0.0-1.1) Eosinophils # (Auto) 0.4 x10^3/uL (0.0-0.7) Basophils # (Auto) 0.0 x10^3/uL (0.0-0.2) Platelet Estimate Adequate (ADEQUATE) Hypochromasia Mod Poikilocytosis Slight Anisocytosis Slight Microcytosis Slight Ovalocytes Few Sodium Level 141 mmol/L (136-145) Potassium Level 3.6 mmol/L (3.5-5.1) Chloride Level 103 mmol/L (98-107) Carbon Dioxide Level 28 mmol/L (21-32) Anion Gap 10 (6-14) Blood Urea Nitrogen 16 mg/dL (7-20) Creatinine 0.9 mg/dL (0.6-1.0) Estimated GFR (Cockcroft-Gault) 66.5 BUN/Creatinine Ratio 18 (6-20) Glucose Level 132 mg/dL (70-99) H Calcium Level 9.5 mg/dL (8.5-10.1) Total Bilirubin 0.2 mg/dL (0.2-1.0) Aspartate Amino Transferase (AST) 14 U/L (15-37) L Alanine Aminotransferase (ALT) 22 U/L (14-59) Alkaline Phosphatase 121 U/L (46-116) H Total Protein 7.5 g/dL (6.4-8.2) Albumin 3.4 g/dL (3.4-5.0) Albumin/Globulin Ratio 0.8 (1.0-1.7) L Lipase 159 U/L (73-393) Urine Color Yellow Urine Clarity Clear Urine pH 6.0 Urine Specific [place] 1.025 Urine Protein Negative mg/dL (NEG-TRACE) Urine Glucose (UA) Negative mg/dL (NEG) Urine Ketones (Stick) Negative mg/dL (NEG) Urine Blood Negative (NEG) Urine Nitrite Negative (NEG) Urine Bilirubin Negative (NEG) Urine Urobilinogen Dipstick 0.2 mg/dL (0.2 mg/dL) Urine Leukocyte Esterase Small (NEG) Urine RBC 0 /HPF (0-2) Urine WBC 5-10 /HPF (0-4) Urine Squamous Epithelial Cells Few /LPF Urine Bacteria Few /HPF (0-FEW) Urine Mucus Slight /LPF Urine Opiates Screen Neg (NEG) Urine Methadone Screen Neg (NEG) Urine Barbiturates Neg (NEG) Urine Phencyclidine Screen Neg (NEG) Urine Amphetamine/Methamphetamine Neg (NEG) Urine Benzodiazepines Screen Pos (NEG) Urine Cocaine Screen Neg (NEG) Urine Cannabinoids Screen Neg (NEG) Urine Ethyl Alcohol Neg (NEG) Laboratory Tests 11/22/18 23:07 Laboratory Tests 11/22/18 23:07 EKG EKG [] Radiology/Procedures Radiology/Procedures [] Impressions: Patient moved to room upon arrival was evaluated by your medical staff after which an IV was established and blood work drawn. A CT of the abdomen and pelvis had originally been ordered however radiology contacted me and informed me that patient has had a total of 23 CTs in the past 2 years. Patient's blood work has returned unremarkable and findings reviewed with patient. I have confronted patient regarding her numerous CTs and she agrees to not having further CT this evening. Patient informed that she needs to schedule appointment with her primary care doctor to manage her ongoing chronic pain. Prior to providing instructions, patient eloped from department. Course & Med Decision Making Course & Med Decision Making Pertinent Labs and Imaging studies reviewed. (See chart for details) [] Dragon Disclaimer Dragon Disclaimer This electronic medical record was generated, in whole or in part, using a voice recognition dictation system. Departure Departure Impression: Primary Impression: Chronic abdominal pain Disposition: HOME, SELF-CARE Condition: STABLE Referrals: UNKNOWN PCP NAME (PCP) ZAKIYA CHUNG Jr. DO Nov 23, 2018 00:21
== END 2018-11-23 00:10 | disposition home or self-care (01) ==
LOC: ER 22:51
DX: G89.29 Other chronic pain (principal); R10.32 Left lower quadrant pain; R11.0 Nausea; E78.00 Pure hypercholesterolemia, unspecified; K21.9 Gastro-esophageal reflux disease without esophagitis; F41.9 Anxiety disorder, unspecified; Z90.89 Acquired absence of other organs; Z90.49 Acquired absence of other specified parts of digestive tract; Z98.890 Other specified postprocedural states; Z90.710 Acquired absence of both cervix and uterus; Z88.1 Allergy status to other antibiotic agents; Z88.6 Allergy status to analgesic agent; Z88.8 Allergy status to other drugs, medicaments and biological substances
CPT/HCPCS: 36415; 80053; 80307; 81001; 83690; 85025; 87086; 96374; 96375; 99283; J2405; J3010; J7030; 99284-25

== ENCOUNTER 2019-01-09 15:42 | Inpatient (IN) | payer OTHER ==
[~2019-01-09] VITALS: Ht 162.6 cm; Wt 117.7 kg
[~2019-01-09 15:42] MED LIST changes: +PANT40TA3 PO; -PANT40TA77 PO
[2019-01-09] MEDS ORDERED: IV NORMAL SALINE 1000ML BAG 1,000 ML IV ONE (17:45)
[2019-01-09] MEDS ORDERED: MORPHINE SULFATE 4 MG/ML VIAL. IV ONE ×2 (17:45→20:45)
--- NOTE | 2019-01-09 17:52 | PHYS DOC ---
Past Medical History Past Medical History: Anemia, Anxiety, Diverticulosis, GERD, High Cholesterol, Other Additional Past Medical Histor: COLITIS; ulcer on rectal wall Past Surgical History: Appendectomy, Cholecystectomy, Hysterectomy, Other Additional Past Surgical Histo: HERNIA REPAIR, FISTUAL REPAIR, RECTAL PROLAPSE REPAIR Alcohol Use: Occasionally Drug Use: None Adult General Chief Complaint Chief Complaint: NAUSEA/VOMITING/DIARRHA HPI HPI Patient is a 48 year old female who presents to the ER with complaints of nausea, bloody diarrhea x10 today, and lower left abdominal pain that started today. Pt denies any fever, vomiting, shortness of breath, cough, dysuria, hematuria, or back pain. She reports a history of having anemia with similar episodes of rectal bleeding. Currently, her pain is 8/10 on the pain scale, there are no alleviating factors. She reports that she has been unable to be seen by her PCP due to a lapse in insurance but states that she has continued to take all of her medications as prescribed. Review of Systems Review of Systems Constitutional: Denies fever or chills [] Eyes: Denies changes HENT: Denies nasal congestion or sore throat [] Respiratory: Denies cough or shortness of breath [] Cardiovascular: No additional information not addressed in HPI [] GI: See HPI : Denies dysuria or hematuria [] Musculoskeletal: Denies back pain Integument: Denies rash or skin lesions [] Neurologic: Denies headache Complete systems were reviewed and found to be within normal limits, except as documented in this note. Current Medications Current Medications Current Medications Medications (Trade) Dose Ordered Sig/Ga Start Time Stop Time Status Last Admin Dose Admin Acetaminophen (Tylenol) 650 mg PRN Q6HRS PRN 01/09/19 21:45 Info (CONTRAST GIVEN -- Rx MONITORING) 1 each PRN DAILY PRN 01/09/19 19:45 01/11/19 19:44 Info (Non-Icu Electrolyte Protocol) 1 ea PRN DAILY PRN 01/09/19 21:45 Iohexol (Omnipaque 300 Mg/ml) 75 ml 1X ONCE 01/09/19 19:30 01/09/19 19:33 DC 01/09/19 20:00 75 ML Lactulose (Lactulose) 20 gm PRN Q12HR PRN 01/09/19 21:45 Morphine Sulfate (Morphine Sulfate) 2 mg PRN Q1HR PRN 01/09/19 21:45 Ondansetron HCl (Zofran) 4 mg PRN Q6HRS PRN 01/09/19 21:45 Oxycodone/ Acetaminophen (Percocet 5/325) 1 tab PRN Q4HRS PRN 01/09/19 21:45 Sodium Chloride 1,000 ml @ 1,000 mls/hr 1X ONCE 01/09/19 17:45 01/09/19 18:44 DC 01/09/19 19:05 1,000 MLS/HR Zolpidem Tartrate (Ambien) 5 mg PRN QHS PRN 01/09/19 21:45 Allergies Allergies Allergies Coded Allergies Type Severity Reaction Last Updated Verified cephalexin Allergy Intermediate rash, red ears 08/29/18 Yes ketorolac Allergy Intermediate HIVES 11/22/18 Yes prochlorperazine Allergy Intermediate 11/24/16 Yes Physical Exam Physical Exam Constitutional: Well developed, well nourished, no acute distress, non-toxic appearance, obese. [] HENT: Normocephalic, atraumatic, bilateral external ears normal, oropharynx moist, nose normal. [] Eyes: PERRLA, EOMI, conjunctiva normal, no discharge. [] Neck: Normal range of motion, no stridor. [] Cardiovascular:Heart rate regular rhythm, no murmur [] Lungs & Thorax: Bilateral breath sounds clear to auscultation [] Abdomen: Bowel sounds normal, soft, LLQ tenderness, no guarding, no masses, no pulsatile masses. Rectal Exam: Normal tone, No mass, Positive control Stool: bloody liquid Guaiac: Positive Skin: Warm, dry, no erythema, no rash, pallor of lips noted [] Extremities: No cyanosis, ROM intact Neurologic: Alert and oriented X 3, no focal deficits noted. [] Psychologic: Affect normal, judgement normal, mood normal. [] Current Patient Data Vital Signs Vital Signs Date Time Temp Pulse Resp B/P (MAP) Pulse Ox O2 Delivery O2 Flow Rate FiO2 01/09/19 21:03 16 98 Room Air 01/09/19 19:30 155/105 (122) 01/09/19 17:15 98.7 94 98.7 Lab Values Laboratory Tests Test 01/09/19 17:40 01/09/19 19:05 Stool Occult Blood Positive (NEG) White Blood Count 5.7 x10^3/uL (4.0-11.0) Red Blood Count 3.54 x10^6/uL (3.50-5.40) Hemoglobin 7.2 g/dL (12.0-15.5) L Hematocrit 23.9 % (36.0-47.0) L Mean Corpuscular Volume 68 fL (79-100) L Mean Corpuscular Hemoglobin 20 pg (25-35) L Mean Corpuscular Hemoglobin Concent 30 g/dL (31-37) L Red Cell Distribution Width 17.1 % (11.5-14.5) H Platelet Count 278 x10^3/uL (140-400) Neutrophils (%) (Auto) 79 % (31-73) H Lymphocytes (%) (Auto) 12 % (24-48) L Monocytes (%) (Auto) 6 % (0-9) Eosinophils (%) (Auto) 2 % (0-3) Basophils (%) (Auto) 1 % (0-3) Neutrophils # (Auto) 4.5 x10^3uL (1.8-7.7) Lymphocytes # (Auto) 0.7 x10^3/uL (1.0-4.8) L Monocytes # (Auto) 0.4 x10^3/uL (0.0-1.1) Eosinophils # (Auto) 0.1 x10^3/uL (0.0-0.7) Basophils # (Auto) 0.0 x10^3/uL (0.0-0.2) Platelet Estimate Pending Sodium Level 139 mmol/L (136-145) Potassium Level 4.0 mmol/L (3.5-5.1) Chloride Level 102 mmol/L (98-107) Carbon Dioxide Level 27 mmol/L (21-32) Anion Gap 10 (6-14) Blood Urea Nitrogen 9 mg/dL (7-20) Creatinine 0.7 mg/dL (0.6-1.0) Estimated GFR (Cockcroft-Gault) 88.9 BUN/Creatinine Ratio 13 (6-20) Glucose Level 117 mg/dL (70-99) H Calcium Level 8.7 mg/dL (8.5-10.1) Magnesium Level 1.9 mg/dL (1.8-2.4) Total Bilirubin 0.2 mg/dL (0.2-1.0) Aspartate Amino Transferase (AST) 11 U/L (15-37) L Alanine Aminotransferase (ALT) 21 U/L (14-59) Alkaline Phosphatase 131 U/L (46-116) H Total Protein 7.4 g/dL (6.4-8.2) Albumin 3.4 g/dL (3.4-5.0) Albumin/Globulin Ratio 0.9 (1.0-1.7) L Lipase 168 U/L (73-393) Laboratory Tests 01/09/19 19:05 Laboratory Tests 01/09/19 19:05 EKG EKG [] Radiology/Procedures Radiology/Procedures PROCEDURE: CT ABD PELV W/ IV CONTRST ONLY CT ABD PELV W/ IV CONTRST ONLY Indication: Left lower abdominal pain, bloody diarrhea Technique: Postcontrast CT imaging was performed of the abdomen and pelvis, multiplanar reconstruction images submitted. No oral contrast was given. One or more of the following individualized dose reduction techniques were utilized for this examination: 1. Automated exposure control 2. Adjustment of the mA and/or kV according to patient size 3. Use of iterative reconstruction technique. Comparison: August 27, 2018 Findings: 0.2 cm noncalcified right lower lobe lung nodule is stable. There is probable hepatic steatosis. There has been cholecystectomy. No adrenal nodularity is identified. Both kidneys enhance, no hydronephrosis. There is no new abnormality identified of the pancreas or spleen. Evaluation of bowel is somewhat limited without oral contrast, no bowel dilatation, free air, free fluid. There has likely been appendectomy. There could be some wall thickening of the left aspect of the rectum, no significant inflammatory type change identified of the fat. There is scattered mild plaque of the abdominal aorta and iliac arteries. There is again small right paracentral ventral fat-containing abdominal hernia axial image 52, neck about 0.7 cm, no bowel. IMPRESSION: 1. There could be some wall thickening of the left aspect of the rectum as can be seen with proctitis although mass not excluded by imaging, no significant inflammatory type change otherwise identified. 2. There is likely hepatic steatosis. 3. There is a small ventral fat-containing hernia.[] Course & Med Decision Making Course & Med Decision Making Pertinent Labs and Imaging studies reviewed. (See chart for details) Dx: Proctitis, rectal bleeding, anemia VSS Pt was given 2 doses of 4 mg of morphine for pain control and 1L of NS in the ER. Rectal exam positive for blood. CT revealed proctitis. 2103- Spoke with Dr. Hill who will admit patient for proctitis, rectal bleeding, and anemia. Will order transfusion of 1u PRBCs per his request and consult GI. Charbel Disclaimer Dragsandy Disclaimer This electronic medical record was generated, in whole or in part, using a voice recognition dictation system. Departure Departure Impression: Primary Impression: Proctitis Additional Impressions: Rectal bleeding Anemia Disposition: ADMITTED INPATIENT Admitting Physician: Other (ELVI) Condition: STABLE Referrals: UNKNOWN PCP NAME (PCP) Problem Qualifiers Additional Impressions: Anemia Anemia type: unspecified type Qualified Codes: D64.9 - Anemia, unspecified MARLY BANUELOS APRN Jan 09, 2019 17:52
[2019-01-09 18:29] LABS: FECAL OB PT POSITIVE (NEG)
[2019-01-09 19:09] LABS: BASO % 1 % (0-3); EOS # 0.1 x10^3/uL (0.0-0.7); EOS % 2 % (0-3); HEMATOCRIT 23.9 % (36.0-47.0); HEMOGLOBIN 7.2 g/dL (12.0-15.5); LYMPH # 0.7 x10^3/uL (1.0-4.8); LYMPH % 12 % (24-48); MEAN CORPUSCULAR HEMOGLOBIN 20 pg (25-35); MEAN CORPUSCULAR HGB CONC 30 g/dL (31-37); MEAN CORPUSCULAR VOLUME 68 fL (79-100); MONO # 0.4 x10^3/uL (0.0-1.1); MONO % 6 % (0-9); NEUT # 4.5 x10^3uL (1.8-7.7); NEUT % 79 % (31-73); PLATELET COUNT 278 x10^3/uL (140-400); RED BLOOD COUNT 3.54 x10^6/uL (3.50-5.40); RED CELL DISTRIBUTION WIDTH 17.1 % (11.5-14.5); WHITE BLOOD COUNT 5.7 x10^3/uL (4.0-11.0)
[2019-01-09 19:16] LABS: CALCIUM 8.7 mg/dL (8.5-10.1); CREATININE 0.7 mg/dL (0.6-1.0); GFR 88.9
[2019-01-09 19:24] LABS: ALBUMIN 3.4 g/dL (3.4-5.0); ALBUMIN/GLOBULIN RATIO 0.9 (1.0-1.7); MAGNESIUM 1.9 mg/dL (1.8-2.4); TOTAL BILIRUBIN 0.2 mg/dL (0.2-1.0); TOTAL PROTEIN 7.4 g/dL (6.4-8.2)
[2019-01-09] MEDS ORDERED: IOHEXOL 300 MG/ML 100ML VIAL. IV ONE (19:30)
[2019-01-09] MEDS ORDERED: CONTRAST GIVEN. MC PRN (19:45)
--- NOTE | 2019-01-09 20:24 | RAD ---
CT ABD PELV W/ IV CONTRST ONLY Indication: Left lower abdominal pain, bloody diarrhea Technique: Postcontrast CT imaging was performed of the abdomen and pelvis, multiplanar reconstruction images submitted. No oral contrast was given. One or more of the following individualized dose reduction techniques were utilized for this examination: 1. Automated exposure control 2. Adjustment of the mA and/or kV according to patient size 3. Use of iterative reconstruction technique. Comparison: August 27, 2018 Findings: 0.2 cm noncalcified right lower lobe lung nodule is stable. There is probable hepatic steatosis. There has been cholecystectomy. No adrenal nodularity is identified. Both kidneys enhance, no hydronephrosis. There is no new abnormality identified of the pancreas or spleen. Evaluation of bowel is somewhat limited without oral contrast, no bowel dilatation, free air, free fluid. There has likely been appendectomy. There could be some wall thickening of the left aspect of the rectum, no significant inflammatory type change identified of the fat. There is scattered mild plaque of the abdominal aorta and iliac arteries. There is again small right paracentral ventral fat-containing abdominal hernia axial image 52, neck about 0.7 cm, no bowel. IMPRESSION: 1. There could be some wall thickening of the left aspect of the rectum as can be seen with proctitis although mass not excluded by imaging, no significant inflammatory type change otherwise identified. 2. There is likely hepatic steatosis. 3. There is a small ventral fat-containing hernia. Electronically signed by: Jose Alberto Miller MD (01/09/2019 8:21 PM) [facility]
[2019-01-09] MEDS ORDERED: MORPHINE SULFATE 2 MG/ML VIAL. IV PRN (21:45)
[2019-01-09] MEDS ORDERED: ZOLPIDEM 5 MG TABLET. PO PRN (21:45)
[2019-01-09] MEDS ORDERED: oxyCODONE/APAP 5/325 1 TAB TABLET PO PRN (21:45)
[2019-01-09] MEDS ORDERED: ACETAMINOPHEN 325 MG TABLET. PO PRN (21:45)
[2019-01-09] MEDS ORDERED: LACTULOSE 20 GM/30 ML SOLUTION. PO PRN (21:45)
[2019-01-09] MEDS ORDERED: ELECTROLYTE (NON-ICU) PROTOCOL MC PRN (21:45)
--- NOTE | 2019-01-09 21:57 | PDOC1 ---
History and Physical Date of Admission Date of Admission 01/09/19 Identification/Chief Complaint Problems: (1) Rectal bleeding (2) Rectal pain, chronic (3) Hematochezia History of Present Illness History of Present Illness Patient is a 48-year-old female with past medical history of hematochezia who has been in her usual state of health until today when she presented at least 13 episodes of bowel movements with blood. The patient denies copious amounts on every bowel movement some of them were streaked with blood but certainly concerning for the patient since she also had left lower quadrant pain and rectal pain associated. The patient develop as well nausea with this pain that she describes as sharp sensation 9 out of 10 intensity which brought her to the emergency department. No alleviating factors were reported by the patient she has not self medicated. Patient has been seen by GI in the outpatient in the past but due to her losing her insurance was unable to continue following in the outpatient setting. She has regained insurance and she was in the process of establishing care with a GI doctor but this episode happened and she decided to come to the emergency department for further evaluation of this intractable pain. The time my evaluation patient seems to be much more comparable but nevertheless she still experiencing discomfort. CAT scan of the abdomen was performed no significant findings except in the rectal vault there seems to be thickening and a mass cannot be ruled out. Certainly concerning findings which will require further investigation. The patient does not percent a surgical abdomen she does not have guarding or rebound tenderness. The patient denies headache no blurred vision no chest pain palpitations or shortness of breath has been associated she does have an anemia which is quite significant at the present time given that she is actively bleeding she will require a blood transfusion. Plan of care has been explained detail to the patient and I have addressed all her concerns to the best of my abilities. She is being admitted for further elevation and treatment Past Medical History Cardiovascular: No pertinent hx Pulmonary: No pertinent hx GI: GERD, Hemorrhoids, Irritable bowel disease Heme/Onc: No pertinent hx Hepatobiliary: No pertinent hx Psych: Anxiety Rheumatologic: No pertinent hx Infectious disease: No pertinent hx Renal/: No pertinent hx Endocrine: No pertinent hx Past Surgical History Past Surgical History: Appendectomy, Cholecystectomy, , Hysterectomy, Other Family History Family History: Depression, High Cholestrol Family History: Parent Current Medications Current Medications Current Medications Medications (Trade) Dose Ordered Sig/Ga Start Time Stop Time Status Last Admin Dose Admin Info (CONTRAST GIVEN -- Rx MONITORING) 1 each PRN DAILY PRN 01/09/19 19:45 01/11/19 19:44 Info (Non-Icu Electrolyte Protocol) 1 ea PRN DAILY PRN 01/09/19 21:45 UNV Iohexol (Omnipaque 300 Mg/ml) 75 ml 1X ONCE 01/09/19 19:30 01/09/19 19:33 DC 01/09/19 20:00 75 ML Morphine Sulfate (Morphine Sulfate) 4 mg 1X ONCE 01/09/19 20:45 01/09/19 20:46 DC 01/09/19 21:03 4 MG Ondansetron HCl (Zofran) 4 mg PRN Q6HRS PRN 01/09/19 21:45 UNV Sodium Chloride 1,000 ml @ 1,000 mls/hr 1X ONCE 01/09/19 17:45 01/09/19 18:44 DC 01/09/19 19:05 1,000 MLS/HR Zolpidem Tartrate (Ambien) 5 mg PRN QHS PRN 01/09/19 21:45 UNV Allergies Allergies Allergies Coded Allergies Type Severity Reaction Last Updated Verified cephalexin Allergy Intermediate rash, red ears 08/29/18 Yes ketorolac Allergy Intermediate HIVES 11/22/18 Yes prochlorperazine Allergy Intermediate 11/24/16 Yes ROS Review of System CONSTITUTIONAL: No fever or chills EYES: No recent changes SKIN: No rash or itching CARDIOVASCULAR: No chest pain, syncope, palpitations, or edema RESPIRATORY: No SOB or cough GASTROINTESTINAL: Pertinent as per history of present illness NEUROLOGICAL: No headaches or weakness ENDOCRINE: No cold or heat intolerance GENITOURINARY: No urgency or frequency of urination MUSCULOSKELETAL: No back pain or joint pain LYMPHATICS: No enlarged lymph nodes PSYCHIATRIC: No anxiety or depression Physical Exam Physical Exam Gen.: Morbidly obese in no apparent distress Head: Normal shape atraumatic Eyes: Pupils equal reactive to light and accommodation, normal conjunctivae and lids Ears: Normal shape Nose: Normal shape no trauma Mouth: No exudates of the back of throat no thrush no lesions Neck: Supple no JVD no carotid bruit or lymphadenopathy no thyromegaly Chest: Lungs clear to auscultation with good inspiratory effort no crackles rales or rhonchi Cardiovascular: S1-S2 regular rhythm no murmurs gallops or rubs Abdomen: Bowel sounds present soft nontender no hepatosplenomegaly appreciated sign Extremities: No clubbing no cyanosis no edema peripheral pulses palpated bilaterally Neurological: Alert awake oriented in person time place and situation, cranial nerves II through XII intact, no motor or sensory deficits appreciated Psych: Flat affect, cooperative Vitals Vitals Vital Signs Date Time Temp Pulse Resp B/P (MAP) Pulse Ox O2 Delivery O2 Flow Rate FiO2 01/09/19 21:03 16 98 Room Air 01/09/19 19:30 155/105 (122) 01/09/19 17:15 98.7 94 98.7 Labs Labs Laboratory Tests Test 01/09/19 17:40 01/09/19 19:05 Stool Occult Blood Positive (NEG) White Blood Count 5.7 x10^3/uL (4.0-11.0) Red Blood Count 3.54 x10^6/uL (3.50-5.40) Hemoglobin 7.2 g/dL (12.0-15.5) Hematocrit 23.9 % (36.0-47.0) Mean Corpuscular Volume 68 fL (79-100) Mean Corpuscular Hemoglobin 20 pg (25-35) Mean Corpuscular Hemoglobin Concent 30 g/dL (31-37) Red Cell Distribution Width 17.1 % (11.5-14.5) Platelet Count 278 x10^3/uL (140-400) Neutrophils (%) (Auto) 79 % (31-73) Lymphocytes (%) (Auto) 12 % (24-48) Monocytes (%) (Auto) 6 % (0-9) Eosinophils (%) (Auto) 2 % (0-3) Basophils (%) (Auto) 1 % (0-3) Neutrophils # (Auto) 4.5 x10^3uL (1.8-7.7) Lymphocytes # (Auto) 0.7 x10^3/uL (1.0-4.8) Monocytes # (Auto) 0.4 x10^3/uL (0.0-1.1) Eosinophils # (Auto) 0.1 x10^3/uL (0.0-0.7) Basophils # (Auto) 0.0 x10^3/uL (0.0-0.2) Sodium Level 139 mmol/L (136-145) Potassium Level 4.0 mmol/L (3.5-5.1) Chloride Level 102 mmol/L (98-107) Carbon Dioxide Level 27 mmol/L (21-32) Anion Gap 10 (6-14) Blood Urea Nitrogen 9 mg/dL (7-20) Creatinine 0.7 mg/dL (0.6-1.0) Estimated GFR (Cockcroft-Gault) 88.9 BUN/Creatinine Ratio 13 (6-20) Glucose Level 117 mg/dL (70-99) Calcium Level 8.7 mg/dL (8.5-10.1) Magnesium Level 1.9 mg/dL (1.8-2.4) Total Bilirubin 0.2 mg/dL (0.2-1.0) Aspartate Amino Transf (AST/SGOT) 11 U/L (15-37) Alanine Aminotransferase (ALT/SGPT) 21 U/L (14-59) Alkaline Phosphatase 131 U/L (46-116) Total Protein 7.4 g/dL (6.4-8.2) Albumin 3.4 g/dL (3.4-5.0) Albumin/Globulin Ratio 0.9 (1.0-1.7) Lipase 168 U/L (73-393) Laboratory Tests Test 01/09/19 17:40 01/09/19 19:05 Stool Occult Blood Positive (NEG) White Blood Count 5.7 x10^3/uL (4.0-11.0) Red Blood Count 3.54 x10^6/uL (3.50-5.40) Hemoglobin 7.2 g/dL (12.0-15.5) Hematocrit 23.9 % (36.0-47.0) Mean Corpuscular Volume 68 fL (79-100) Mean Corpuscular Hemoglobin 20 pg (25-35) Mean Corpuscular Hemoglobin Concent 30 g/dL (31-37) Red Cell Distribution Width 17.1 % (11.5-14.5) Platelet Count 278 x10^3/uL (140-400) Neutrophils (%) (Auto) 79 % (31-73) Lymphocytes (%) (Auto) 12 % (24-48) Monocytes (%) (Auto) 6 % (0-9) Eosinophils (%) (Auto) 2 % (0-3) Basophils (%) (Auto) 1 % (0-3) Neutrophils # (Auto) 4.5 x10^3uL (1.8-7.7) Lymphocytes # (Auto) 0.7 x10^3/uL (1.0-4.8) Monocytes # (Auto) 0.4 x10^3/uL (0.0-1.1) Eosinophils # (Auto) 0.1 x10^3/uL (0.0-0.7) Basophils # (Auto) 0.0 x10^3/uL (0.0-0.2) Sodium Level 139 mmol/L (136-145) Potassium Level 4.0 mmol/L (3.5-5.1) Chloride Level 102 mmol/L (98-107) Carbon Dioxide Level 27 mmol/L (21-32) Anion Gap 10 (6-14) Blood Urea Nitrogen 9 mg/dL (7-20) Creatinine 0.7 mg/dL (0.6-1.0) Estimated GFR (Cockcroft-Gault) 88.9 BUN/Creatinine Ratio 13 (6-20) Glucose Level 117 mg/dL (70-99) Calcium Level 8.7 mg/dL (8.5-10.1) Magnesium Level 1.9 mg/dL (1.8-2.4) Total Bilirubin 0.2 mg/dL (0.2-1.0) Aspartate Amino Transf (AST/SGOT) 11 U/L (15-37) Alanine Aminotransferase (ALT/SGPT) 21 U/L (14-59) Alkaline Phosphatase 131 U/L (46-116) Total Protein 7.4 g/dL (6.4-8.2) Albumin 3.4 g/dL (3.4-5.0) Albumin/Globulin Ratio 0.9 (1.0-1.7) Lipase 168 U/L (73-393) VTE Prophylaxis Ordered VTE Prophylaxis Devices: Yes VTE Pharmacological Prophylaxi: No Assessment/Plan Assessment/Plan Hematochezia Acute blood loss anemia wall thickening of the left aspect of the rectum as can be seen with proctitis although mass not excluded by imaging History of GERD Dyslipidemia Morbid obesity with bmi of 44 history of generalized anxiety disorder and depression Hepato steatosis secondary to morbid obesity Plan; transfuse 1 unit of PRBCs follow hemodynamics supportive measures pain management. consult GI since the imaging study is concerning for a possible rectal mass no evidence of mass on rectal exam as related by ED amari blood upon exam furhter recommendations based on clinical course. DIPESH BOLES MD Jan 09, 2019 21:57
[2019-01-09 22:02] LABS: BILIRUBIN,URINE NEGATIVE (NEG); CLARITY,URINE CLEAR; COLOR,URINE YELLOW; NITRITE,URINE NEGATIVE (NEG); PH,URINE 5.5; PROTEIN,URINE NEGATIVE (NEG-TRACE); UROBILINOGEN,URINE 0.2 mg/dL (0.2 mg/dL)
[2019-01-09 22:18] LABS: BACTERIA,URINE 0 /HPF (0-FEW); RBC,URINE 0 /HPF (0-2); SQUAMOUS EPITHELIAL CELL,UR OCC /LPF; WBC,URINE OCC /HPF (0-4)
[2019-01-09 22:48] VITALS: BP 141/92
[2019-01-09] MEDS: ONDANSETRON PF 4 MG/2 ML VIAL. IV PRN (23:00)
[2019-01-09 23:13] LABS: PLT ESTIMATE INCREASED (ADEQUATE)
[2019-01-09 23:14] LABS: HYPOCHROMIA SLIGHT; OVALOCYTES OCC; POLYCHROMASIA SLIGHT; SCHISTOCYTES OCC
[2019-01-09 23:18] VITALS: BP 141/92
[2019-01-09 23:42] VITALS: BP 142/84
[2019-01-10] VITALS (8 sets, daily range): BP systolic 126–156; BP diastolic 73–94
[2019-01-10] MEDS: MORPHINE SULFATE 4 MG/ML VIAL. IV PRN ×7 (00:23→17:00)
[2019-01-10] MEDS ORDERED: OPIUM/BELLADONNA 30/16.2MG SUPP.RECT. PR PRN (02:00)
--- NOTE | 2019-01-10 02:18 | NUR ---
The patient, HIPOLITO NELSON, 48 y/o, F was admitted by DIPESH BOLES MD. Pt. arrived on unit at 2248 via wheelchair. VSS. Pt. requests Dilaudid for pain. Explained to pt. she only has morphine and nodded. Pt. refused to wear SCDs. Explained to pt. the purpose of SCDs. Pt. was given written information regarding hospital policies, unit procedures and contact persons. Belongings were left with pt. in room.
--- NOTE | 2019-01-10 02:35 | NUR ---
Pt. got angry this morning because MD will not give her dilaudid. This nurse explained to pt. why dilaudid is not automatically "given." Pt.'s pain level is not being alleviated with morphine. Will continue to monitor.
--- NOTE | 2019-01-10 02:50 | NUR ---
Spoke to Dr. Hill this morning about pt.'s pain. He did not want to give patient any more pain medication for tonight.
[2019-01-10 04:04] LABS: BASO % 1 % (0-3); EOS # 0.2 x10^3/uL (0.0-0.7); EOS % 3 % (0-3); HEMATOCRIT 26.4 % (36.0-47.0); HEMOGLOBIN 8.1 g/dL (12.0-15.5); LYMPH # 0.8 x10^3/uL (1.0-4.8); LYMPH % 13 % (24-48); MEAN CORPUSCULAR HEMOGLOBIN 21 pg (25-35); MEAN CORPUSCULAR HGB CONC 31 g/dL (31-37); MEAN CORPUSCULAR VOLUME 69 fL (79-100); MONO # 0.4 x10^3/uL (0.0-1.1); MONO % 6 % (0-9); NEUT # 4.5 x10^3uL (1.8-7.7); NEUT % 77 % (31-73); PLATELET COUNT 272 x10^3/uL (140-400); RED BLOOD COUNT 3.81 x10^6/uL (3.50-5.40); RED CELL DISTRIBUTION WIDTH 17.8 % (11.5-14.5); WHITE BLOOD COUNT 5.8 x10^3/uL (4.0-11.0)
--- NOTE | 2019-01-10 06:19 | NUR ---
Dr. Pena consulted this morning.
[2019-01-10 07:34] LABS: CALCIUM 8.7 mg/dL (8.5-10.1); CREATININE 0.6 mg/dL (0.6-1.0); GFR 106.3; POTASSIUM 3.9 mmol/L (3.5-5.1)
[2019-01-10] MEDS: ONDANSETRON PF 4 MG/2 ML VIAL. IV PRN ×2 (08:32→13:52)
--- NOTE | 2019-01-10 10:11 | PDOC ---
PROGRESS NOTES Chief Complaint Chief Complaint Hematochezia Anemia- 1 transfusion Rectal pain Proctitis vs ?Rectal mass Hx Hemorrhoids Hx IBS Hx GERD HLD Morbid obesity Hepatic steatosis 2/2 morbid obesity Hx ADELFO, MDD History of Present Illness History of Present Illness Pt was seen and examined She was resting in bed with mild distress Expressed excessive pain and repeatedly asked for Dilaudid Pt currently has morphine, states that this medication does not work, only Dilaudid works Discussed pain management at length and concluded to continue morphine only No new complaints besides continued report of pain Vitals Vitals Vital Signs Date Time Temp Pulse Resp B/P (MAP) Pulse Ox O2 Delivery O2 Flow Rate FiO2 01/10/19 08:34 95 Room Air 01/10/19 07:00 98.1 87 16 133/92 (106) 98.1 Physical Exam General: Alert, Oriented X3, mild distress Heart: Normal S1, Normal S2, No murmurs, Other (tachycardic) Lungs: Clear Abdomen: Normal bowel sounds, Soft Extremities: No clubbing, No cyanosis Skin: No rashes, No breakdown Labs LABS Laboratory Tests Test 01/09/19 17:40 01/09/19 19:05 01/09/19 21:40 01/10/19 03:00 Stool Occult Blood Positive (NEG) White Blood Count 5.7 x10^3/uL (4.0-11.0) 5.8 x10^3/uL (4.0-11.0) Red Blood Count 3.54 x10^6/uL (3.50-5.40) 3.81 x10^6/uL (3.50-5.40) Hemoglobin 7.2 g/dL (12.0-15.5) 8.1 g/dL (12.0-15.5) Hematocrit 23.9 % (36.0-47.0) 26.4 % (36.0-47.0) Mean Corpuscular Volume 68 fL (79-100) 69 fL (79-100) Mean Corpuscular Hemoglobin 20 pg (25-35) 21 pg (25-35) Mean Corpuscular Hemoglobin Concent 30 g/dL (31-37) 31 g/dL (31-37) Red Cell Distribution Width 17.1 % (11.5-14.5) 17.8 % (11.5-14.5) Platelet Count 278 x10^3/uL (140-400) 272 x10^3/uL (140-400) Neutrophils (%) (Auto) 79 % (31-73) 77 % (31-73) Lymphocytes (%) (Auto) 12 % (24-48) 13 % (24-48) Monocytes (%) (Auto) 6 % (0-9) 6 % (0-9) Eosinophils (%) (Auto) 2 % (0-3) 3 % (0-3) Basophils (%) (Auto) 1 % (0-3) 1 % (0-3) Neutrophils # (Auto) 4.5 x10^3uL (1.8-7.7) 4.5 x10^3uL (1.8-7.7) Lymphocytes # (Auto) 0.7 x10^3/uL (1.0-4.8) 0.8 x10^3/uL (1.0-4.8) Monocytes # (Auto) 0.4 x10^3/uL (0.0-1.1) 0.4 x10^3/uL (0.0-1.1) Eosinophils # (Auto) 0.1 x10^3/uL (0.0-0.7) 0.2 x10^3/uL (0.0-0.7) Basophils # (Auto) 0.0 x10^3/uL (0.0-0.2) 0.0 x10^3/uL (0.0-0.2) Platelet Estimate Increased (ADEQUATE) Polychromasia Slight Hypochromasia Slight Ovalocytes Occ Schistocytes Occ Sodium Level 139 mmol/L (136-145) 142 mmol/L (136-145) Potassium Level 4.0 mmol/L (3.5-5.1) 3.9 mmol/L (3.5-5.1) Chloride Level 102 mmol/L (98-107) 103 mmol/L (98-107) Carbon Dioxide Level 27 mmol/L (21-32) 28 mmol/L (21-32) Anion Gap 10 (6-14) 11 (6-14) Blood Urea Nitrogen 9 mg/dL (7-20) 10 mg/dL (7-20) Creatinine 0.7 mg/dL (0.6-1.0) 0.6 mg/dL (0.6-1.0) Estimated GFR (Cockcroft-Gault) 88.9 106.3 BUN/Creatinine Ratio 13 (6-20) Glucose Level 117 mg/dL (70-99) 110 mg/dL (70-99) Calcium Level 8.7 mg/dL (8.5-10.1) 8.7 mg/dL (8.5-10.1) Magnesium Level 1.9 mg/dL (1.8-2.4) Total Bilirubin 0.2 mg/dL (0.2-1.0) Aspartate Amino Transf (AST/SGOT) 11 U/L (15-37) Alanine Aminotransferase (ALT/SGPT) 21 U/L (14-59) Alkaline Phosphatase 131 U/L (46-116) Total Protein 7.4 g/dL (6.4-8.2) Albumin 3.4 g/dL (3.4-5.0) Albumin/Globulin Ratio 0.9 (1.0-1.7) Lipase 168 U/L (73-393) Urine Color Yellow Urine Clarity Clear Urine pH 5.5 Urine Specific [place] >=1.030 Urine Protein Negative mg/dL (NEG-TRACE) Urine Glucose (UA) Negative mg/dL (NEG) Urine Ketones (Stick) Negative mg/dL (NEG) Urine Blood Negative (NEG) Urine Nitrite Negative (NEG) Urine Bilirubin Negative (NEG) Urine Urobilinogen Dipstick 0.2 mg/dL (0.2 mg/dL) Urine Leukocyte Esterase Negative (NEG) Urine RBC 0 /HPF (0-2) Urine WBC Occ /HPF (0-4) Urine Squamous Epithelial Cells Occ /LPF Urine Bacteria 0 /HPF (0-FEW) Prothrombin Time 13.0 SEC (11.7-14.0) Prothromb Time International Ratio 1.0 (0.8-1.1) Review of Systems Review of Systems Pt reports rectal pain Pt denies CP, SOB, PRATHER Assessment and Plan Assessmemt and Plan Problems Medical Problems: (1) Anemia Status: Acute (2) Proctitis Status: Acute (3) Rectal bleeding Status: Acute Assessment Hematochezia Anemia- 1 transfusion Rectal pain Proctitis vs ?Rectal mass Hx Hemorrhoids Hx IBS Hx GERD HLD Morbid obesity Hepatic steatosis 2/2 morbid obesity Hx ADELFO, MDD Plan Continue to monitor CBC to assess anemia No blood transfusion today (Hbg 8.1) GI has been consulted, await recs (CT pelvis showing proctitis vs rectal mass) Continue morphine for pain management PT/OT Home meds Frequent labs DVT prophylaxis Appreciate GI recs Comment Review of Relevant I have reviewed the following items agnieszka (where applicable) has been applied. Labs Laboratory Tests Test 01/09/19 17:40 01/09/19 19:05 01/09/19 21:40 01/10/19 03:00 Stool Occult Blood Positive (NEG) White Blood Count 5.7 x10^3/uL (4.0-11.0) 5.8 x10^3/uL (4.0-11.0) Red Blood Count 3.54 x10^6/uL (3.50-5.40) 3.81 x10^6/uL (3.50-5.40) Hemoglobin 7.2 g/dL (12.0-15.5) 8.1 g/dL (12.0-15.5) Hematocrit 23.9 % (36.0-47.0) 26.4 % (36.0-47.0) Mean Corpuscular Volume 68 fL (79-100) 69 fL (79-100) Mean Corpuscular Hemoglobin 20 pg (25-35) 21 pg (25-35) Mean Corpuscular Hemoglobin Concent 30 g/dL (31-37) 31 g/dL (31-37) Red Cell Distribution Width 17.1 % (11.5-14.5) 17.8 % (11.5-14.5) Platelet Count 278 x10^3/uL (140-400) 272 x10^3/uL (140-400) Neutrophils (%) (Auto) 79 % (31-73) 77 % (31-73) Lymphocytes (%) (Auto) 12 % (24-48) 13 % (24-48) Monocytes (%) (Auto) 6 % (0-9) 6 % (0-9) Eosinophils (%) (Auto) 2 % (0-3) 3 % (0-3) Basophils (%) (Auto) 1 % (0-3) 1 % (0-3) Neutrophils # (Auto) 4.5 x10^3uL (1.8-7.7) 4.5 x10^3uL (1.8-7.7) Lymphocytes # (Auto) 0.7 x10^3/uL (1.0-4.8) 0.8 x10^3/uL (1.0-4.8) Monocytes # (Auto) 0.4 x10^3/uL (0.0-1.1) 0.4 x10^3/uL (0.0-1.1) Eosinophils # (Auto) 0.1 x10^3/uL (0.0-0.7) 0.2 x10^3/uL (0.0-0.7) Basophils # (Auto) 0.0 x10^3/uL (0.0-0.2) 0.0 x10^3/uL (0.0-0.2) Platelet Estimate Increased (ADEQUATE) Polychromasia Slight Hypochromasia Slight Ovalocytes Occ Schistocytes Occ Sodium Level 139 mmol/L (136-145) 142 mmol/L (136-145) Potassium Level 4.0 mmol/L (3.5-5.1) 3.9 mmol/L (3.5-5.1) Chloride Level 102 mmol/L (98-107) 103 mmol/L (98-107) Carbon Dioxide Level 27 mmol/L (21-32) 28 mmol/L (21-32) Anion Gap 10 (6-14) 11 (6-14) Blood Urea Nitrogen 9 mg/dL (7-20) 10 mg/dL (7-20) Creatinine 0.7 mg/dL (0.6-1.0) 0.6 mg/dL (0.6-1.0) Estimated GFR (Cockcroft-Gault) 88.9 106.3 BUN/Creatinine Ratio 13 (6-20) Glucose Level 117 mg/dL (70-99) 110 mg/dL (70-99) Calcium Level 8.7 mg/dL (8.5-10.1) 8.7 mg/dL (8.5-10.1) Magnesium Level 1.9 mg/dL (1.8-2.4) Total Bilirubin 0.2 mg/dL (0.2-1.0) Aspartate Amino Transf (AST/SGOT) 11 U/L (15-37) Alanine Aminotransferase (ALT/SGPT) 21 U/L (14-59) Alkaline Phosphatase 131 U/L (46-116) Total Protein 7.4 g/dL (6.4-8.2) Albumin 3.4 g/dL (3.4-5.0) Albumin/Globulin Ratio 0.9 (1.0-1.7) Lipase 168 U/L (73-393) Urine Color Yellow Urine Clarity Clear Urine pH 5.5 Urine Specific [place] >=1.030 Urine Protein Negative mg/dL (NEG-TRACE) Urine Glucose (UA) Negative mg/dL (NEG) Urine Ketones (Stick) Negative mg/dL (NEG) Urine Blood Negative (NEG) Urine Nitrite Negative (NEG) Urine Bilirubin Negative (NEG) Urine Urobilinogen Dipstick 0.2 mg/dL (0.2 mg/dL) Urine Leukocyte Esterase Negative (NEG) Urine RBC 0 /HPF (0-2) Urine WBC Occ /HPF (0-4) Urine Squamous Epithelial Cells Occ /LPF Urine Bacteria 0 /HPF (0-FEW) Prothrombin Time 13.0 SEC (11.7-14.0) Prothromb Time International Ratio 1.0 (0.8-1.1) Laboratory Tests Test 01/09/19 17:40 01/09/19 19:05 01/09/19 21:40 01/10/19 03:00 Stool Occult Blood Positive (NEG) White Blood Count 5.7 x10^3/uL (4.0-11.0) 5.8 x10^3/uL (4.0-11.0) Red Blood Count 3.54 x10^6/uL (3.50-5.40) 3.81 x10^6/uL (3.50-5.40) Hemoglobin 7.2 g/dL (12.0-15.5) 8.1 g/dL (12.0-15.5) Hematocrit 23.9 % (36.0-47.0) 26.4 % (36.0-47.0) Mean Corpuscular Volume 68 fL (79-100) 69 fL (79-100) Mean Corpuscular Hemoglobin 20 pg (25-35) 21 pg (25-35) Mean Corpuscular Hemoglobin Concent 30 g/dL (31-37) 31 g/dL (31-37) Red Cell Distribution Width 17.1 % (11.5-14.5) 17.8 % (11.5-14.5) Platelet Count 278 x10^3/uL (140-400) 272 x10^3/uL (140-400) Neutrophils (%) (Auto) 79 % (31-73) 77 % (31-73) Lymphocytes (%) (Auto) 12 % (24-48) 13 % (24-48) Monocytes (%) (Auto) 6 % (0-9) 6 % (0-9) Eosinophils (%) (Auto) 2 % (0-3) 3 % (0-3) Basophils (%) (Auto) 1 % (0-3) 1 % (0-3) Neutrophils # (Auto) 4.5 x10^3uL (1.8-7.7) 4.5 x10^3uL (1.8-7.7) Lymphocytes # (Auto) 0.7 x10^3/uL (1.0-4.8) 0.8 x10^3/uL (1.0-4.8) Monocytes # (Auto) 0.4 x10^3/uL (0.0-1.1) 0.4 x10^3/uL (0.0-1.1) Eosinophils # (Auto) 0.1 x10^3/uL (0.0-0.7) 0.2 x10^3/uL (0.0-0.7) Basophils # (Auto) 0.0 x10^3/uL (0.0-0.2) 0.0 x10^3/uL (0.0-0.2) Platelet Estimate Increased (ADEQUATE) Polychromasia Slight Hypochromasia Slight Ovalocytes Occ Schistocytes Occ Sodium Level 139 mmol/L (136-145) 142 mmol/L (136-145) Potassium Level 4.0 mmol/L (3.5-5.1) 3.9 mmol/L (3.5-5.1) Chloride Level 102 mmol/L (98-107) 103 mmol/L (98-107) Carbon Dioxide Level 27 mmol/L (21-32) 28 mmol/L (21-32) Anion Gap 10 (6-14) 11 (6-14) Blood Urea Nitrogen 9 mg/dL (7-20) 10 mg/dL (7-20) Creatinine 0.7 mg/dL (0.6-1.0) 0.6 mg/dL (0.6-1.0) Estimated GFR (Cockcroft-Gault) 88.9 106.3 BUN/Creatinine Ratio 13 (6-20) Glucose Level 117 mg/dL (70-99) 110 mg/dL (70-99) Calcium Level 8.7 mg/dL (8.5-10.1) 8.7 mg/dL (8.5-10.1) Magnesium Level 1.9 mg/dL (1.8-2.4) Total Bilirubin 0.2 mg/dL (0.2-1.0) Aspartate Amino Transf (AST/SGOT) 11 U/L (15-37) Alanine Aminotransferase (ALT/SGPT) 21 U/L (14-59) Alkaline Phosphatase 131 U/L (46-116) Total Protein 7.4 g/dL (6.4-8.2) Albumin 3.4 g/dL (3.4-5.0) Albumin/Globulin Ratio 0.9 (1.0-1.7) Lipase 168 U/L (73-393) Urine Color Yellow Urine Clarity Clear Urine pH 5.5 Urine Specific [place] >=1.030 Urine Protein Negative mg/dL (NEG-TRACE) Urine Glucose (UA) Negative mg/dL (NEG) Urine Ketones (Stick) Negative mg/dL (NEG) Urine Blood Negative (NEG) Urine Nitrite Negative (NEG) Urine Bilirubin Negative (NEG) Urine Urobilinogen Dipstick 0.2 mg/dL (0.2 mg/dL) Urine Leukocyte Esterase Negative (NEG) Urine RBC 0 /HPF (0-2) Urine WBC Occ /HPF (0-4) Urine Squamous Epithelial Cells Occ /LPF Urine Bacteria 0 /HPF (0-FEW) Prothrombin Time 13.0 SEC (11.7-14.0) Prothromb Time International Ratio 1.0 (0.8-1.1) Medications Current Medications Morphine Sulfate (Morphine Sulfate) 4 mg 1X ONCE IV Last administered on at 19:08; Start 01/09/19 at 17:45; Stop 01/09/19 at 17:46; Status DC Sodium Chloride 1,000 ml @ 1,000 mls/hr 1X ONCE IV Last administered on at 19:05; Start 01/09/19 at 17:45; Stop 01/09/19 at 18:44; Status DC Iohexol (Omnipaque 300 Mg/ml) 75 ml 1X ONCE IV Last administered on 01/09/19at 20:00; Start 01/09/19 at 19:30; Stop 01/09/19 at 19:33; Status DC Info (CONTRAST GIVEN -- Rx MONITORING) 1 each PRN DAILY PRN MC SEE COMMENTS; Start 01/09/19 at 19:45; Stop 01/11/19 at 19:44 Morphine Sulfate (Morphine Sulfate) 4 mg 1X ONCE IV Last administered on at 21:03; Start 01/09/19 at 20:45; Stop 01/09/19 at 20:46; Status DC Ondansetron HCl (Zofran) 4 mg PRN Q6HRS PRN IV NAUSEA/VOMITING 1ST CHOICE Last administered on 01/10/19at 08:32; Start 01/09/19 at 21:45 Zolpidem Tartrate (Ambien) 5 mg PRN QHS PRN PO INSOMNIA, MAY REPEAT IN 1HR; Start 01/09/19 at 21:45 Info (Non-Icu Electrolyte Protocol) 1 ea PRN DAILY PRN MC SEE COMMENTS; Start 01/09/19 at 21:45 Morphine Sulfate (Morphine Sulfate) 2 mg PRN Q1HR PRN IV SEVERE PAIN Last administered on 01/09/19at 23:01; Start 01/09/19 at 21:45; Stop 01/10/19 at 00:08 ; Status DC Oxycodone/ Acetaminophen (Percocet 5/325) 1 tab PRN Q4HRS PRN PO MILD PAIN, 2ND CHOICE; Start 01/09/19 at 21:45 Acetaminophen (Tylenol) 650 mg PRN Q6HRS PRN PO Headaches, Temp > 101.5F; Start 01/09/19 at 21:45 Lactulose (Lactulose) 20 gm PRN Q12HR PRN PO CONSTIPATION 1ST CHOICE; Start at 21:45 Morphine Sulfate (Morphine Sulfate) 4 mg PRN Q2HR PRN IV SEVERE PAIN Last administered on 01/10/19at 08:34; Start 01/10/19 at 00:15 Belladonna Alkaloids/Opium (B & O) 1 supp PRN Q12HR PRN ND rectal pain Last administered on 01/10/19at 02:08; Start 01/10/19 at 02:00 Active Scripts Active Zofran (Ondansetron Hcl) 4 Mg Tablet 1 Tab PO Q8HRS PRN Reported Xanax Xr (Alprazolam) 1 Mg Tab.er.24h 2 Mg PO DAILY Cymbalta (Duloxetine Hcl) 60 Mg Capsule.dr 120 Mg PO DAILY Remeron (Mirtazapine) 15 Mg Tablet 1 Tab PO QHS Zocor (Simvastatin) 5 Mg Tablet 40 Mg PO DAILY Prevacid 24HR (Lansoprazole) 15 Mg Capsule.dr 30 Mg PO DAILY Vitals/I & O Vital Sign - Last 24 Hours 01/09/19 01/09/19 01/09/19 01/09/19 17:15 19:00 19:08 19:30 Temp 98.7 98.7 Pulse 94 Resp 20 20 B/P (MAP) 137/98 (111) 150/90 (110) 155/105 (122) Pulse Ox 95 98 O2 Delivery Room Air Room Air 01/09/19 01/09/19 01/09/19 01/09/19 20:52 21:03 21:52 22:22 Pulse 78 81 83 Resp 20 16 20 20 B/P (MAP) 148/72 (97) 133/90 (104) 150/77 (101) Pulse Ox 95 98 96 95 O2 Delivery Room Air Room Air Room Air Room Air 01/09/19 01/09/19 01/09/19 01/09/19 22:48 22:48 23:01 23:18 Temp 98.8 98.8 98.8 98.8 Pulse 78 78 Resp 18 18 18 B/P (MAP) 141/92 (108) 141/92 Pulse Ox 97 O2 Delivery Room Air Room Air Room Air 01/09/19 01/09/19 01/10/19 01/10/19 23:42 23:45 00:23 00:40 Temp 98.5 98.5 98.5 98.5 Pulse 96 95 Resp 20 20 20 20 B/P (MAP) 142/84 139/85 O2 Delivery Room Air Room Air 01/10/19 01/10/19 01/10/19 01/10/19 01:40 02:08 02:25 03:00 Temp 98.6 97.8 97.8 98.6 97.8 97.8 Pulse 85 80 78 Resp 18 B/P (MAP) 156/94 133/89 126/73 (90) Pulse Ox 96 O2 Delivery Room Air Room Air 01/10/19 01/10/19 01/10/19 01/10/19 03:08 03:16 05:45 06:15 Resp Pulse Ox 95 O2 Delivery Room Air Room Air Room Air Room Air 01/10/19 01/10/19 07:00 08:34 Temp 98.1 98.1 Pulse 87 Resp 16 B/P (MAP) 133/92 (106) Pulse Ox 90 95 O2 Delivery Room Air Room Air Intake and Output 01/09/19 01/09/19 01/10/19 14:59 22:59 06:59 Intake Total 700 ml Balance 700 ml CIERRA QUINTERO III DO Jan 10, 2019 10:11
--- NOTE | 2019-01-10 11:12 | NUR ---
SW following for discharge planning. Discussed with RN, ot is from home - has children. RN advised no SW needs at this time. SW will continue to follow.
[2019-01-10] MEDS ORDERED: HYDROmorphone 2 MG/ML VIAL IV ONE (12:30)
[2019-01-10] MEDS ORDERED: HYDROmorphone 2 MG/ML VIAL IV PRN (18:45)
--- NOTE | 2019-01-10 19:30 | PDOC2 ---
GI CONSULT Reason For Consult: Proctitis HPI: HPI: Lela Olivares is a 48 years old female patient with past medical history of obesity,gastroesophageal reflux disease, chronic rectal ulcers, anemia, anxiety and report of narcotic abuses in the past. She is currently admitted to the hospital after she presented with abdominal pain and rectal bleeding. Patient reports she has recurrent rectal bleeding in the past that required multiple hospitalizations and colonoscopic exams. Colonoscopic exam done for hematochezia in 05/2014 was notable for superficial rectal ulcers ranging from 5 -20mm in size. Patient reports she had multiple colonoscopic exams since then at [facility]. The latest upper and lower endoscopic exam was done in 05/2018 at [facility]. Patient reports she was told to have solitary rectal ulcer and was started with 5-ASA derivatives and hydrocortisone suppositories. She reports she had continued to take the enema for couple of months with some improvement of her symptoms. Patient currently complains of sharp stabbing pain in the left lower abdomen. The pain is as severe as 8/10. She reports she has not had rectal bleeding since her admission. She indicates that she has regular bowel movement with no diarrhea or constipation. She has nausea but denies vomiting. She reports she is taking 30mg Prevacid twice daily with well controlled reflux symptoms. She denies dysphagia or odynophagia.She denies fever, chills or sweating. No loss of appetite or weight loss.No chest pain, sob or PND. FH: Family History: No pertinent hx, Other Social History: Drugs: Other (She denies using illicit drugs.) ROS: GEN: Denies fevers, chills, sweats HEENT: Denies blurred vision, sore throat CV: Denies chest pain RESP: Denies shortness of air, cough GI: Per HPI : Denies hematuria, dysuria ENDO: Denies weight changes NEURO: Denies confusion, dizziness MSK: Denies weakness, joint pain/swelling SKIN: Denies jaundice, pruritus Vitals: Vitals: Vital Signs Date Time Temp Pulse Resp B/P (MAP) Pulse Ox O2 Delivery O2 Flow Rate FiO2 01/10/19 17:00 95 Room Air 01/10/19 15:00 98.1 78 16 126/87 (100) 98.1 Labs: Labs: Laboratory Tests Test 01/09/19 19:05 01/09/19 21:40 01/10/19 03:00 White Blood Count 5.7 x10^3/uL (4.0-11.0) 5.8 x10^3/uL (4.0-11.0) Red Blood Count 3.54 x10^6/uL (3.50-5.40) 3.81 x10^6/uL (3.50-5.40) Hemoglobin 7.2 g/dL (12.0-15.5) 8.1 g/dL (12.0-15.5) Hematocrit 23.9 % (36.0-47.0) 26.4 % (36.0-47.0) Mean Corpuscular Volume 68 fL (79-100) 69 fL (79-100) Mean Corpuscular Hemoglobin 20 pg (25-35) 21 pg (25-35) Mean Corpuscular Hemoglobin Concent 30 g/dL (31-37) 31 g/dL (31-37) Red Cell Distribution Width 17.1 % (11.5-14.5) 17.8 % (11.5-14.5) Platelet Count 278 x10^3/uL (140-400) 272 x10^3/uL (140-400) Neutrophils (%) (Auto) 79 % (31-73) 77 % (31-73) Lymphocytes (%) (Auto) 12 % (24-48) 13 % (24-48) Monocytes (%) (Auto) 6 % (0-9) 6 % (0-9) Eosinophils (%) (Auto) 2 % (0-3) 3 % (0-3) Basophils (%) (Auto) 1 % (0-3) 1 % (0-3) Neutrophils # (Auto) 4.5 x10^3uL (1.8-7.7) 4.5 x10^3uL (1.8-7.7) Lymphocytes # (Auto) 0.7 x10^3/uL (1.0-4.8) 0.8 x10^3/uL (1.0-4.8) Monocytes # (Auto) 0.4 x10^3/uL (0.0-1.1) 0.4 x10^3/uL (0.0-1.1) Eosinophils # (Auto) 0.1 x10^3/uL (0.0-0.7) 0.2 x10^3/uL (0.0-0.7) Basophils # (Auto) 0.0 x10^3/uL (0.0-0.2) 0.0 x10^3/uL (0.0-0.2) Platelet Estimate Increased (ADEQUATE) Polychromasia Slight Hypochromasia Slight Ovalocytes Occ Schistocytes Occ Sodium Level 139 mmol/L (136-145) 142 mmol/L (136-145) Potassium Level 4.0 mmol/L (3.5-5.1) 3.9 mmol/L (3.5-5.1) Chloride Level 102 mmol/L (98-107) 103 mmol/L (98-107) Carbon Dioxide Level 27 mmol/L (21-32) 28 mmol/L (21-32) Anion Gap 10 (6-14) 11 (6-14) Blood Urea Nitrogen 9 mg/dL (7-20) 10 mg/dL (7-20) Creatinine 0.7 mg/dL (0.6-1.0) 0.6 mg/dL (0.6-1.0) Estimated GFR (Cockcroft-Gault) 88.9 106.3 BUN/Creatinine Ratio 13 (6-20) Glucose Level 117 mg/dL (70-99) 110 mg/dL (70-99) Calcium Level 8.7 mg/dL (8.5-10.1) 8.7 mg/dL (8.5-10.1) Magnesium Level 1.9 mg/dL (1.8-2.4) Total Bilirubin 0.2 mg/dL (0.2-1.0) Aspartate Amino Transf (AST/SGOT) 11 U/L (15-37) Alanine Aminotransferase (ALT/SGPT) 21 U/L (14-59) Alkaline Phosphatase 131 U/L (46-116) Total Protein 7.4 g/dL (6.4-8.2) Albumin 3.4 g/dL (3.4-5.0) Albumin/Globulin Ratio 0.9 (1.0-1.7) Lipase 168 U/L (73-393) Urine Color Yellow Urine Clarity Clear Urine pH 5.5 Urine Specific [place] >=1.030 Urine Protein Negative mg/dL (NEG-TRACE) Urine Glucose (UA) Negative mg/dL (NEG) Urine Ketones (Stick) Negative mg/dL (NEG) Urine Blood Negative (NEG) Urine Nitrite Negative (NEG) Urine Bilirubin Negative (NEG) Urine Urobilinogen Dipstick 0.2 mg/dL (0.2 mg/dL) Urine Leukocyte Esterase Negative (NEG) Urine RBC 0 /HPF (0-2) Urine WBC Occ /HPF (0-4) Urine Squamous Epithelial Cells Occ /LPF Urine Bacteria 0 /HPF (0-FEW) Prothrombin Time 13.0 SEC (11.7-14.0) Prothromb Time International Ratio 1.0 (0.8-1.1) Allergies: Coded Allergies: cephalexin (Verified Allergy, Intermediate, rash, red ears, 08/29/18) ketorolac (Verified Allergy, Intermediate, HIVES, 11/22/18) prochlorperazine (Verified Allergy, Intermediate, 11/24/16) Medications: Current Medications Medications (Trade) Dose Ordered Sig/Ga Route PRN Reason Start Time Stop Time Status Last Admin Dose Admin Iohexol (Omnipaque 300 Mg/ml) 75 ml 1X ONCE IV 01/09/19 19:30 01/09/19 19:33 DC 01/09/19 20:00 Morphine Sulfate (Morphine Sulfate) 4 mg 1X ONCE IV 01/09/19 20:45 01/09/19 20:46 DC 01/09/19 21:03 Ondansetron HCl (Zofran) 4 mg PRN Q6HRS PRN IV NAUSEA/VOMITING 1ST CHOICE 01/09/19 21:45 01/10/19 13:52 Morphine Sulfate (Morphine Sulfate) 2 mg PRN Q1HR PRN IV SEVERE PAIN 01/09/19 21:45 01/10/19 00:08 DC 01/09/19 23:01 Morphine Sulfate (Morphine Sulfate) 4 mg PRN Q2HR PRN IV SEVERE PAIN 01/10/19 00:15 01/10/19 16:15 Belladonna Alkaloids/Opium (B & O) 1 supp PRN Q12HR PRN [place] rectal pain 01/10/19 02:00 01/10/19 02:08 Hydromorphone HCl (Dilaudid) 1 mg 1X ONCE IV 01/10/19 12:30 01/10/19 12:34 DC 01/10/19 13:53 Imaging: Imaging: [facility] [address] [place], [place] [id number] IMAGING REPORT Signed PATIENT: LELA OLIVARES ACCOUNT: [id number] : 1970 LOCATION: ER AGE: 48 SEX: F EXAM STATUS: REG ER ORD. PHYSICIAN: MARLY BANUELOS APRN REASON: lower left abd pain, bloody diarrhea PROCEDURE: CT ABD PELV W/ IV CONTRST ONLY CT ABD PELV W/ IV CONTRST ONLY Indication: Left lower abdominal pain, bloody diarrhea Technique: Postcontrast CT imaging was performed of the abdomen and pelvis, multiplanar reconstruction images submitted. No oral contrast was given. One or more of the following individualized dose reduction techniques were utilized for this examination: 1. Automated exposure control 2. Adjustment of the mA and/or kV according to patient size 3. Use of iterative reconstruction technique. Comparison: August 27, 2018 Findings: 0.2 cm noncalcified right lower lobe lung nodule is stable. There is probable hepatic steatosis. There has been cholecystectomy. No adrenal nodularity is identified. Both kidneys enhance, no hydronephrosis. There is no new abnormality identified of the pancreas or spleen. Evaluation of bowel is somewhat limited without oral contrast, no bowel dilatation, free air, free fluid. There has likely been appendectomy. There could be some wall thickening of the left aspect of the rectum, no significant inflammatory type change identified of the fat. There is scattered mild plaque of the abdominal aorta and iliac arteries. There is again small right paracentral ventral fat-containing abdominal hernia axial image 52, neck about 0.7 cm, no bowel. IMPRESSION: 1. There could be some wall thickening of the left aspect of the rectum as can be seen with proctitis although mass not excluded by imaging, no significant inflammatory type change otherwise identified. 2. There is likely hepatic steatosis. 3. There is a small ventral fat-containing hernia. Electronically signed by: Jonathan Olivas MD (01/09/2019 8:21 PM) [facility] DICTATED and SIGNED BY: JONATHAN OLIVAS MD DATE: 01/09/192020 PE: GEN: NAD HEENT: Atraumatic, PERRLA LUNGS: CTAB HEART: RRR, no murmurs ABD: NABS, S/ND/NT, no masses. Rectal exam notable for normal perianal area. The rectal vault was empty. There was normal colored stool on examining finger. EXTREMITY: No edema SKIN: No rashes, no jaundice NEURO/PSYCH: A & O 3 A/P: A/P: Lela Olivares is a 48 years old female patient with past medical history of obesity,gastroesophageal reflux disease, chronic rectal ulcers, anemia, anxiety and report of narcotic abuses in the past. She is currently admitted to the hospital after she presented with abdominal pain and rectal bleeding. Patient reports she has recurrent rectal bleeding in the past that required multiple hospitalizations and colonoscopic exams. Colonoscopic exam done for hematochezia in 05/2014 was notable for superficial rectal ulcers ranging from 5 -20mm in size. Patient reports she had multiple colonoscopic exams since then at [facility]. The latest upper and lower endoscopic exam was done in 05/2018 at [facility]. The exam was notable for solitary rectal ulcer and was started with mesalamine and hydrocortisone suppositories. Patient was examined at bed side. She was hemodynamically stable. The abdomen was soft with no guarding or rebound tenderness. Rectal exam ruled out active overt GI bleeding with no melena or hematochezia. Labs notable for microcytic anemia with Hgb 7.2 at presentation. Hgb improved to 8.1 this morning after one unit of packed red blood cell transfusion. Electrolytes stable with normal renal and hepatic function. BUN not elevated. Imaging of the abdomen and pelvis with CT notable for wall thickening of the rectum. * Chronic rectal ulcers. * Microcytic anemia ( rectal exam with no evidence of melena or hematochezia). * Gastroesophageal reflux disease. Recommendations * Advance diet as tolerated. * Iron studies. * Monitor CBC and transfuse to keep Hgb above 7. * PPI BID. * Bowel regimen: Miralax 17 gram daily as needed. * Please obtain medical records from [facility] and [facility] to review colonoscopic and pathologic reports. * No urgent indication for endoscopic intervention at this time. * GI available for any Q's. Thank you for involving us in the care of this interesting patient. CINDY LEWIS MD Jan 10, 2019 19:30
--- NOTE | 2019-01-10 20:00 | NUR ---
1999-- This nurse saw pt. walk fast across [address] with civilian clothing on. Pt. grabbed tele pack and threw it on the ground. this nurse caught up to pt. and told her she still had her tele lines on then i asked why she was leaving and pt. stated "because i can't get what i asked for." (Pt. had asked for a sandwich before day shift left and floor had ran out so JONAHTAN Cadena had paged nursing supervisor pre wave for more.) Pt. proceeded to walk off. Per CM Sood, she (FIGURE MODEL) ran up to the elevators and told pt. she still had her IV on her so pt. grabbed IV and pulled it off then applied pressure and stated "not anymore" and left. Security was called while this nurse had run after patient.
== END 2019-01-10 19:30 | disposition left against medical advice (07) | DRG 378 ==
LOC: ER 15:42 → 4 NORTH 21:04
PROVIDERS: ADMIT Internal Medicine; ATTEND Internal Medicine
PROC: 30233N1 Transfusion of Nonautologous Red Blood Cells into Peripheral Vein, Percutaneous Approach (ICD-10-PCS; principal; 2019-01-09)
DX: K62.5 Hemorrhage of anus and rectum (principal); K62.6 Ulcer of anus and rectum; D62 Acute posthemorrhagic anemia; Z68.41 Body mass index [BMI] 40.0-44.9, adult; E78.00 Pure hypercholesterolemia, unspecified; K57.90 Diverticulosis of intestine, part unspecified, without perforation or abscess without bleeding; K21.9 Gastro-esophageal reflux disease without esophagitis; K58.9 Irritable bowel syndrome, unspecified; E66.01 Morbid (severe) obesity due to excess calories; E78.5 Hyperlipidemia, unspecified; F41.1 Generalized anxiety disorder; K76.0 Fatty (change of) liver, not elsewhere classified; F32.9 Major depressive disorder, single episode, unspecified; Z90.710 Acquired absence of both cervix and uterus; Z90.49 Acquired absence of other specified parts of digestive tract; Z88.6 Allergy status to analgesic agent; Z88.1 Allergy status to other antibiotic agents; Z88.8 Allergy status to other drugs, medicaments and biological substances; Z81.8 Family history of other mental and behavioral disorders; K46.9 Unspecified abdominal hernia without obstruction or gangrene
CPT/HCPCS: 36415; 74177; 80048; 80053; 81001; 82274; 83690; 83735; 85025; 85610; 86850; 86900; 86901; 86920; J1170; J2270; J2405; J7030; P9016; Q9967; 99285-25

== ENCOUNTER 2019-01-26 19:02 | Emergency (ER) | payer OTHER ==
[~2019-01-26] VITALS: Ht 165.1 cm; Wt 117.5 kg
[2019-01-26 19:20] VITALS: BP 160/89
== END 2019-01-26 20:16 | disposition left against medical advice (07) ==
LOC: ER 19:02
DX: G89.29 Other chronic pain (principal); R10.9 Unspecified abdominal pain; Z53.21 Procedure and treatment not carried out due to patient leaving prior to being seen by health care provider

== ENCOUNTER 2019-02-16 11:58 | Emergency (ER) | payer OTHER ==
[~2019-02-16] VITALS: Ht 162.6 cm; Wt 117.5 kg
[2019-02-16 12:05] VITALS: BP 206/110
[2019-02-16] MEDS ORDERED: HYDROcodone/APAP 7.5/325MG 1 TAB TABLET PO ONE (12:30)
[2019-02-16] MEDS ORDERED: ONDANSETRON ODT 4 MG TAB.RAPDIS. PO ONE (12:30)
--- NOTE | 2019-02-16 12:32 | PHYS DOC ---
Past Medical History Past Medical History: Anemia, Anxiety, Diverticulosis, GERD, High Cholesterol, Other Additional Past Medical Histor: COLITIS; ulcer on rectal wall Past Surgical History: Appendectomy, Cholecystectomy, Hysterectomy, Other Additional Past Surgical Histo: HERNIA REPAIR, FISTUAL REPAIR, RECTAL PROLAPSE REPAIR Alcohol Use: Occasionally Drug Use: None Adult General Chief Complaint Chief Complaint: FLANK PAIN [facility] HPI Patient is a 48 year old female who presents with complaining of right flank pain. Patient complaining of sudden onset of right flank sharp pain with radiation to right lower quadrant for the last 3 hours t as an intermittent pain that getting constant. Patient complaining of nausea without vomiting. Patient rated her pain 9/10 and denies history of the same pain. Patient denies urinary symptoms, fever and chills, vomiting and diarrhea. Patient has had history of frequent emergency room visits and chronic abdominal pain. Review of Systems Review of Systems Constitutional: Denies fever or chills [] Eyes: Denies change in visual acuity, redness, or eye pain [] HENT: Denies nasal congestion or sore throat [] Respiratory: Denies cough or shortness of breath [] Cardiovascular: No additional information not addressed in HPI [] GI: Reports abdominal pain, nausea, denies vomiting, bloody stools or diarrhea [] : Denies dysuria or hematuria, reports flank pain [] Musculoskeletal: Denies back pain or joint pain [] Integument: Denies rash or skin lesions [] Neurologic: Denies headache, focal weakness or sensory changes [] Endocrine: Denies polyuria or polydipsia [] All other systems were reviewed and found to be within normal limits, except as documented in this note. Current Medications Current Medications Current Medications Medications (Trade) Dose Ordered Sig/Ga Start Time Stop Time Status Last Admin Dose Admin Acetaminophen/ Hydrocodone Bitart (Lortab 7.5/325) 1 tab 1X ONCE 02/16/19 12:30 02/16/19 12:31 DC Ondansetron HCl (Zofran Odt) 4 mg 1X ONCE 02/16/19 12:30 02/16/19 12:31 DC Allergies Allergies Allergies Coded Allergies Type Severity Reaction Last Updated Verified cephalexin Allergy Intermediate rash, red ears 08/29/18 Yes ketorolac Allergy Intermediate HIVES 11/22/18 Yes prochlorperazine Allergy Intermediate 11/24/16 Yes Physical Exam Physical Exam Constitutional: Well nourished, mild distress, non-toxic appearance, morbidly obese. [] HENT: Normocephalic, atraumatic, oropharynx moist. Eyes: PERRLA, EOMI, conjunctiva normal, no discharge. [] Neck: Normal range of motion, no tenderness, supple, no stridor. [] Cardiovascular:Heart rate regular rhythm, no murmur [] Lungs & Thorax: Bilateral breath sounds clear to auscultation [] Abdomen: Bowel sounds normal, soft, no tenderness, no masses, no pulsatile masses. [] Skin: Warm, dry, no erythema, no rash. [] Back: No tenderness, no CVA tenderness, right lower quadrant guarding. [] Extremities: No tenderness, no cyanosis, no clubbing, ROM intact, no edema. [] Neurologic: Alert and oriented X 3, normal motor function, normal sensory function, no focal deficits noted. [] Psychologic: Affect anxious, judgement normal, mood normal. [] Current Patient Data Vital Signs Vital Signs Date Time Temp Pulse Resp B/P (MAP) Pulse Ox O2 Delivery O2 Flow Rate FiO2 02/16/19 12:05 98.9 98 16 206/110 (142) 99 Room Air 98.9 EKG EKG [] Radiology/Procedures Radiology/Procedures [facility] [address] [place] [address] IMAGING REPORT Signed PATIENT: HIPOLITO NELSON ACCOUNT: [id number] : 1970 LOCATION: ER AGE: 48 SEX: F EXAM STATUS: REG ER ORD. PHYSICIAN: CHELLE BERGERON MD REASON: right flank pain PROCEDURE: CT ABDOMEN PELVIS WO CONTRAST PQRS Compliance Statement: One or more of the following individualized dose reduction techniques were utilized for this examination: 1. Automated exposure control 2. Adjustment of the mA and/or kV according to patient size 3. Use of iterative reconstruction technique CT ABDOMEN PELVIS WO CONTRAST Clinical Indication: R FLANK PAIN Comparison: CT abdomen and pelvis with contrast, January 09, 2019. Technique: Helical CT imaging of the abdomen and pelvis is performed without IV or oral contrast. Findings: Evaluation of solid organs and bowel is limited without oral and IV contrast, decreasing sensitivity for detection of pathology. There is 4 mm nodule in the left lower lobe, image 10. Nodule is stable compared to December 2016, therefore considered benign. There is minimal groundglass opacity in the anterior lateral left lower lobe. No lung consolidation. The cardiac size is normal. Cholecystectomy. Small fat-containing supraumbilical hernia. There is minimal fatty infiltration of the liver. Spleen, pancreas, adrenal glands, and abdominal aorta caliber are normal. The common bile duct is prominent but unchanged. The kidneys are normal. No ureteral calculus. Stomach unremarkable. There is no dilated small bowel. Appendectomy. Similar to prior study, there is wall thickening of the distal rectosigmoid colon. Wall thickening is greater on the left. There is no surrounding inflammation. No abdominal adenopathy or free fluid. Urinary bladder is normal. Hysterectomy. No pelvic free fluid. Bilateral inguinal lymph nodes may be reactive. No acute bone abnormality. IMPRESSION: 1. Similar to prior study there is wall thickening of the rectum, most apparent of the left wall. Considerations include infectious or inflammatory proctitis versus malignancy. Recommend correlation with sigmoidoscopy if not recently performed. 2. Minimal fatty infiltration of the liver. Electronically signed by: Brett Brown MD (02/16/2019 12:54 PM) [id number] DICTATED and SIGNED BY: BRETT BROWN MD DATE: 02/16/19 1254 Course & Med Decision Making Course & Med Decision Making Pertinent Labs and Imaging studies reviewed. (See chart for details) Patient refuses to take hydrocodone for her pain and left AMA. Dragon Disclaimer Dragon Disclaimer This electronic medical record was generated, in whole or in part, using a voice recognition dictation system. Departure Departure Impression: Primary Impression: Acute right flank pain Additional Impression: Eloped from emergency department Disposition: 07 AGAINST MEDICAL ADVICE (at 1246) Condition: STABLE Referrals: UNKNOWN PCP NAME (PCP) Problem Qualifiers CHELLE BERGERON MD Feb 16, 2019 12:31
--- NOTE | 2019-02-16 12:57 | RAD ---
PQRS Compliance Statement: One or more of the following individualized dose reduction techniques were utilized for this examination: 1. Automated exposure control 2. Adjustment of the mA and/or kV according to patient size 3. Use of iterative reconstruction technique CT ABDOMEN PELVIS WO CONTRAST Clinical Indication: R FLANK PAIN Comparison: CT abdomen and pelvis with contrast, January 09, 2019. Technique: Helical CT imaging of the abdomen and pelvis is performed without IV or oral contrast. Findings: Evaluation of solid organs and bowel is limited without oral and IV contrast, decreasing sensitivity for detection of pathology. There is 4 mm nodule in the left lower lobe, image 10. Nodule is stable compared to December 2016, therefore considered benign. There is minimal groundglass opacity in the anterior lateral left lower lobe. No lung consolidation. The cardiac size is normal. Cholecystectomy. Small fat-containing supraumbilical hernia. There is minimal fatty infiltration of the liver. Spleen, pancreas, adrenal glands, and abdominal aorta caliber are normal. The common bile duct is prominent but unchanged. The kidneys are normal. No ureteral calculus. Stomach unremarkable. There is no dilated small bowel. Appendectomy. Similar to prior study, there is wall thickening of the distal rectosigmoid colon. Wall thickening is greater on the left. There is no surrounding inflammation. No abdominal adenopathy or free fluid. Urinary bladder is normal. Hysterectomy. No pelvic free fluid. Bilateral inguinal lymph nodes may be reactive. No acute bone abnormality. IMPRESSION: 1. Similar to prior study there is wall thickening of the rectum, most apparent of the left wall. Considerations include infectious or inflammatory proctitis versus malignancy. Recommend correlation with sigmoidoscopy if not recently performed. 2. Minimal fatty infiltration of the liver. Electronically signed by: Brett Brown MD (02/16/2019 12:54 PM) [id number]
== END 2019-02-16 12:40 | disposition left against medical advice (07) ==
LOC: ER 11:58
DX: R10.31 Right lower quadrant pain (principal); G89.29 Other chronic pain; R11.0 Nausea; K21.9 Gastro-esophageal reflux disease without esophagitis; E78.00 Pure hypercholesterolemia, unspecified; Z90.89 Acquired absence of other organs; Z90.49 Acquired absence of other specified parts of digestive tract; Z90.710 Acquired absence of both cervix and uterus; Z98.890 Other specified postprocedural states; Z88.1 Allergy status to other antibiotic agents; Z88.6 Allergy status to analgesic agent; Z88.8 Allergy status to other drugs, medicaments and biological substances
CPT/HCPCS: 74176; 99284-25

== ENCOUNTER 2019-02-23 05:03 | Emergency (ER) | payer OTHER ==
[~2019-02-23] VITALS: Ht 162.6 cm; Wt 117.9 kg
[2019-02-23 06:05] LABS: BARBITURATES NEG (NEG); BENZODIAZEPINES POS (NEG); CANNABINOIDS POS (NEG); COCAINE NEG (NEG); METHADONE NEG (NEG); OPIATES POS (NEG); PHENCYCLIDINE NEG (NEG)
[2019-02-23 06:06] LABS: BILIRUBIN,URINE NEGATIVE (NEG); CLARITY,URINE CLEAR; COLOR,URINE YELLOW; NITRITE,URINE NEGATIVE (NEG); PH,URINE 5.5; PROTEIN,URINE NEGATIVE (NEG-TRACE); UROBILINOGEN,URINE 0.2 mg/dL (0.2 mg/dL)
[2019-02-23 06:08] LABS: AMPHETAMINE/METHAMPHETAMINE NEG (NEG)
[2019-02-23 06:12] VITALS: BP 156/76
[2019-02-23 06:20] LABS: BACTERIA,URINE 0 /HPF (0-FEW); RBC,URINE >40 /HPF (0-2); SQUAMOUS EPITHELIAL CELL,UR FEW /LPF; WBC,URINE OCC /HPF (0-4)
--- NOTE | 2019-02-23 06:24 | PHYS DOC ---
Past Medical History Past Medical History: Anemia, Anxiety, Depression, Diverticulosis, GERD, High Cholesterol, Other Additional Past Medical Histor: COLITIS; ulcer on rectal wall Past Surgical History: Appendectomy, Cholecystectomy, Hysterectomy, Other Additional Past Surgical Histo: HERNIA REPAIR, FISTUAL REPAIR, RECTAL PROLAPSE REPAIR Alcohol Use: Occasionally Drug Use: None Adult General Chief Complaint Chief Complaint: RECTAL BLEED HPI HPI Patient is a 48-year-old female who presents to the emergency department for evaluation. She is familiar to me from prior ER visits. She states that overnight, she developed some lower abdominal discomfort, as well as some rectal bleeding, primarily when wiping, but also she states had some blood leaking out of her perineal area. She has had similar symptoms in the past. She states she is under the care of a boring machine operator from [facility], near [facility]. She states she was last seen about a month ago, and is currently on mesalamine. She has not been on steroids in quite a while. She denies any fevers or chills. She has not had any nausea or vomiting. She has not had any urinary symptoms. There are no alleviating or exacerbating factors to the patient's symptoms. She was seen in the emergency department here a week ago, and did have a CT scan of her abdomen and pelvis, report of which has been reviewed. Review of Systems Review of Systems Constitutional: Denies fever or chills [] Eyes: Denies change in visual acuity, redness, or eye pain [] HENT: Denies nasal congestion or sore throat [] Respiratory: Denies cough or shortness of breath [] Cardiovascular: The patient denies any shortness of breath, chest pain, palpitations, or orthopnea [] GI: Denies nausea, vomiting, diarrhea [] : Denies dysuria or hematuria [] Musculoskeletal: Denies back pain or joint pain [] Integument: Denies rash. Patient has several scabbed Skin lesions , on face, as well as on her hands, which she states is from picking her skin.[] Neurologic: Denies headache, focal weakness or sensory changes [] Endocrine: Denies polyuria or polydipsia [] All other systems were reviewed and found to be within normal limits, except as documented in this note. Current Medications Current Medications Current Medications Medications (Trade) Dose Ordered Sig/Ga Start Time Stop Time Status Last Admin Dose Admin Acetaminophen (Tylenol) 1,000 mg 1X ONCE 02/23/19 07:00 02/23/19 07:01 DC Allergies Allergies Allergies Coded Allergies Type Severity Reaction Last Updated Verified cephalexin Allergy Intermediate rash, red ears 08/29/18 Yes ketorolac Allergy Intermediate HIVES 11/22/18 Yes prochlorperazine Allergy Intermediate 11/24/16 Yes Physical Exam Physical Exam PHYSICAL EXAM: CONSTITUTIONAL: Well developed, well nourished HEAD: normocephalic, atraumatic EENT: PERRL, EOMI. Conjunctivae normal color, sclerae non-icteric; moist mucous membranes. NECK: Supple, non-tender; no meningismus. LUNGS: Lungs CTA, breathing even and unlabored. Normal air movement. HEART: Regular rate and rhythm, no murmur CHEST: No deformity; non-tender ABDOMEN: The abdomen is soft, there is mild diffuse tenderness to palpation of the abdomen, without significant focal tenderness, rebound, or guarding, normal bowel sounds are present, no masses or bruits. EXTREM: Normal ROM; no deformity, no calf tenderness. Normal pulses palpable in all extremities. There is no pedal edema. SKIN: No rash; no diaphoresis and scattered scabbed lesions on the face and hands, without evidence of secondary infection. NEURO: Alert; normal speech and cognition; CN's grossly intact; strength grossly intact without focal deficit. BACK: No CVA TTP. RECTAL EXAM: Perianal inspection is normal, there are no fissures, small amount of brown stool is obtained and sent for Hemoccult testing. Exam was performed in the presence of the patient's nurse. Current Patient Data Vital Signs Vital Signs Date Time Temp Pulse Resp B/P (MAP) Pulse Ox O2 Delivery O2 Flow Rate FiO2 02/23/19 06:12 88 20 156/76 (102) 97 Room Air 02/23/19 05:05 97.5 97.5 Lab Values Laboratory Tests Test 02/23/19 05:10 02/23/19 06:15 02/23/19 06:24 Urine Collection Type Unknown Urine Color Yellow Urine Clarity Clear Urine pH 5.5 Urine Specific [place] 1.015 Urine Protein Negative mg/dL (NEG-TRACE) Urine Glucose (UA) Negative mg/dL (NEG) Urine Ketones (Stick) Negative mg/dL (NEG) Urine Blood Large (NEG) Urine Nitrite Negative (NEG) Urine Bilirubin Negative (NEG) Urine Urobilinogen Dipstick 0.2 mg/dL (0.2 mg/dL) Urine Leukocyte Esterase Negative (NEG) Urine RBC >40 /HPF (0-2) Urine WBC Occ /HPF (0-4) Urine Squamous Epithelial Cells Few /LPF Urine Bacteria 0 /HPF (0-FEW) Urine Opiates Screen Pos (NEG) Urine Methadone Screen Neg (NEG) Urine Barbiturates Neg (NEG) Urine Phencyclidine Screen Neg (NEG) Urine Amphetamine/Methamphetamine Neg (NEG) Urine Benzodiazepines Screen Pos (NEG) Urine Cocaine Screen Neg (NEG) Urine Cannabinoids Screen Pos (NEG) Urine Ethyl Alcohol Neg (NEG) Stool Occult Blood Positive (NEG) White Blood Count 4.8 x10^3/uL (4.0-11.0) Red Blood Count 3.50 x10^6/uL (3.50-5.40) Hemoglobin 7.6 g/dL (12.0-15.5) L Hematocrit 24.4 % (36.0-47.0) L Mean Corpuscular Volume 70 fL (79-100) L Mean Corpuscular Hemoglobin 22 pg (25-35) L Mean Corpuscular Hemoglobin Concent 31 g/dL (31-37) Red Cell Distribution Width 18.5 % (11.5-14.5) H Platelet Count 266 x10^3/uL (140-400) Neutrophils (%) (Auto) 76 % (31-73) H Lymphocytes (%) (Auto) 11 % (24-48) L Monocytes (%) (Auto) 10 % (0-9) H Eosinophils (%) (Auto) 3 % (0-3) Basophils (%) (Auto) 1 % (0-3) Neutrophils # (Auto) 3.6 x10^3uL (1.8-7.7) Lymphocytes # (Auto) 0.5 x10^3/uL (1.0-4.8) L Monocytes # (Auto) 0.5 x10^3/uL (0.0-1.1) Eosinophils # (Auto) 0.1 x10^3/uL (0.0-0.7) Basophils # (Auto) 0.0 x10^3/uL (0.0-0.2) Platelet Estimate Adequate (ADEQUATE) Large Platelets Occ Poikilocytosis Mod Anisocytosis Present Microcytosis Mod Prothrombin Time 12.9 SEC (11.7-14.0) Prothrombin Time INR 1.0 (0.8-1.1) Sodium Level 139 mmol/L (136-145) Potassium Level 3.8 mmol/L (3.5-5.1) Chloride Level 104 mmol/L (98-107) Carbon Dioxide Level 28 mmol/L (21-32) Anion Gap 7 (6-14) Blood Urea Nitrogen 10 mg/dL (7-20) Creatinine 0.7 mg/dL (0.6-1.0) Estimated GFR (Cockcroft-Gault) 88.9 BUN/Creatinine Ratio 14 (6-20) Glucose Level 125 mg/dL (70-99) H Calcium Level 8.6 mg/dL (8.5-10.1) Total Bilirubin 0.2 mg/dL (0.2-1.0) Aspartate Amino Transferase (AST) 18 U/L (15-37) Alanine Aminotransferase (ALT) 24 U/L (14-59) Alkaline Phosphatase 129 U/L (46-116) H Total Protein 7.0 g/dL (6.4-8.2) Albumin 3.2 g/dL (3.4-5.0) L Albumin/Globulin Ratio 0.8 (1.0-1.7) L Lipase 115 U/L (73-393) Laboratory Tests 02/23/19 06:24 Laboratory Tests 02/23/19 06:24 EKG EKG [] Radiology/Procedures Radiology/Procedures [] Course & Med Decision Making Course & Med Decision Making Pertinent Labs and recent Imaging studies reviewed. (See chart for details) []8:00 AM: The patient's condition remained stable in the emergency department. I had an extensive discussion with the patient about her condition. Her hemoglobin is similar to her recent values at this facility, although slightly lower. One of the nurses in the emergency department recognized the patient, having seen her 3 days ago at [facility], in [place]. The patient states she was there, and went because she was having blood in her urine. She does have microscopic hematuria at this time. I had an extensive discussion with the patient we discussed possible hospitalization, for further evaluation both of her abdominal pain, rectal bleeding, anemia, and hematuria. I discussed and recommended hospitalization for medical evaluation but the patient remained hesitant to hospitalization, because she was focused on pain management and felt that her pain is not adequately managed during her hospitalizations. I discussed that while physicians do, in general, want to manage pain effectively, we have to be judicious about the use of potent and potentially addicting pain medication, and I also discussed that the fragmented nature of the patient's care, having care at numerous facilities around the city, creates both a delay and difficulty in obtaining appropriate care for her, as well as the optical impression that she is seeking something other than medical care and treatment for her condition. The patient stated that she would like to think about what she would like to do, either come in the hospital or follow-up as an outpatient, and soon after I left the room, nursing staff informed me that the patient eloped from the emergency department. I would have liked to give the patient a course of steroids for her bleeding and history of proctitis, but she left the emergency department. She does have a [facility] from she sees, and discussions I did discuss the importance of follow-up if she decided not to be hospitalized at this time. Dragon Disclaimer Dragon Disclaimer This electronic medical record was generated, in whole or in part, using a voice recognition dictation system. Departure Departure Impression: Primary Impression: Chronic abdominal pain Additional Impressions: Proctitis Anemia Rectal pain, chronic Rectal bleeding Microscopic hematuria Disposition: 07 AGAINST MEDICAL ADVICE Condition: STABLE Referrals: UNKNOWN PCP NAME (PCP) Problem Qualifiers MEHREEN PECK MD February 23, 2019 06:24
[2019-02-23 06:32] LABS: BASO % 1 % (0-3); EOS # 0.1 x10^3/uL (0.0-0.7); EOS % 3 % (0-3); HEMATOCRIT 24.4 % (36.0-47.0); HEMOGLOBIN 7.6 g/dL (12.0-15.5); LYMPH # 0.5 x10^3/uL (1.0-4.8); LYMPH % 11 % (24-48); MEAN CORPUSCULAR HEMOGLOBIN 22 pg (25-35); MEAN CORPUSCULAR HGB CONC 31 g/dL (31-37); MEAN CORPUSCULAR VOLUME 70 fL (79-100); MONO # 0.5 x10^3/uL (0.0-1.1); MONO % 10 % (0-9); NEUT # 3.6 x10^3uL (1.8-7.7); NEUT % 76 % (31-73); PLATELET COUNT 266 x10^3/uL (140-400); RED CELL DISTRIBUTION WIDTH 18.5 % (11.5-14.5); WHITE BLOOD COUNT 4.8 x10^3/uL (4.0-11.0)
[2019-02-23 06:35] LABS: FECAL OB PT POSITIVE (NEG)
[2019-02-23 06:40] LABS: CALCIUM 8.6 mg/dL (8.5-10.1); CREATININE 0.7 mg/dL (0.6-1.0); GFR 88.9; POTASSIUM 3.8 mmol/L (3.5-5.1)
[2019-02-23 06:46] LABS: ALBUMIN 3.2 g/dL (3.4-5.0); ALBUMIN/GLOBULIN RATIO 0.8 (1.0-1.7); PROTHROMBIN TIME PATIENT 12.9 SEC (11.7-14.0); TOTAL BILIRUBIN 0.2 mg/dL (0.2-1.0)
[2019-02-23] MEDS ORDERED: ACETAMINOPHEN 500 MG TABLET PO ONE (07:00)
[2019-02-23 07:37] LABS: PLT ESTIMATE ADEQUATE (ADEQUATE)
[2019-02-23 07:38] LABS: ANISOCYTOSIS PRESENT; MICROCYTOSIS MOD; POIKILOCYTOSIS MOD
== END 2019-02-23 08:11 | disposition left against medical advice (07) ==
LOC: ER 05:03
DX: K62.5 Hemorrhage of anus and rectum (principal); G89.29 Other chronic pain; R31.29 Other microscopic hematuria; D64.89 Other specified anemias; R10.84 Generalized abdominal pain; K62.89 Other specified diseases of anus and rectum; F41.9 Anxiety disorder, unspecified; F32.9 Major depressive disorder, single episode, unspecified; K21.9 Gastro-esophageal reflux disease without esophagitis; E78.00 Pure hypercholesterolemia, unspecified; Z90.89 Acquired absence of other organs; Z90.49 Acquired absence of other specified parts of digestive tract; Z90.710 Acquired absence of both cervix and uterus; Z88.1 Allergy status to other antibiotic agents; Z88.8 Allergy status to other drugs, medicaments and biological substances
CPT/HCPCS: 36415; 80053; 80307; 81001; 82274; 83690; 85025; 85610; 99284

== ENCOUNTER 2019-02-24 18:17 | Emergency (ER) | payer OTHER ==
[~2019-02-24] VITALS: Ht 162.6 cm; Wt 117.9 kg
[2019-02-24] MEDS ORDERED: HYDROcodone/APAP 5/325MG 1 TAB TABLET PO ONE (19:00)
[2019-02-24 19:11] LABS: BASO # 0.1 x10^3/uL (0.0-0.2); BASO % 1 % (0-3); EOS # 0.1 x10^3/uL (0.0-0.7); EOS % 2 % (0-3); HEMOGLOBIN 8.1 g/dL (12.0-15.5); LYMPH # 0.6 x10^3/uL (1.0-4.8); LYMPH % 10 % (24-48); MEAN CORPUSCULAR HEMOGLOBIN 22 pg (25-35); MEAN CORPUSCULAR HGB CONC 31 g/dL (31-37); MEAN CORPUSCULAR VOLUME 70 fL (79-100); MONO # 0.4 x10^3/uL (0.0-1.1); MONO % 8 % (0-9); NEUT # 4.2 x10^3uL (1.8-7.7); NEUT % 78 % (31-73); PLATELET COUNT 283 x10^3/uL (140-400); RED BLOOD COUNT 3.75 x10^6/uL (3.50-5.40); RED CELL DISTRIBUTION WIDTH 18.4 % (11.5-14.5); WHITE BLOOD COUNT 5.4 x10^3/uL (4.0-11.0)
[2019-02-24 19:22] LABS: CREATININE 0.7 mg/dL (0.6-1.0); GFR 88.9; POTASSIUM 3.6 mmol/L (3.5-5.1); PROTHROMBIN TIME PATIENT 12.1 SEC (11.7-14.0)
[2019-02-24 19:28] LABS: ALBUMIN 3.3 g/dL (3.4-5.0); ALBUMIN/GLOBULIN RATIO 0.8 (1.0-1.7); TOTAL BILIRUBIN 0.2 mg/dL (0.2-1.0); TOTAL PROTEIN 7.3 g/dL (6.4-8.2)
[2019-02-24 19:48] VITALS: BP 156/89
[2019-02-24 20:07] LABS: HYPOCHROMIA SLIGHT; MICROCYTOSIS MOD; PLT ESTIMATE ADEQUATE (ADEQUATE); POIKILOCYTOSIS SLIGHT; POLYCHROMASIA SLIGHT
--- NOTE | 2019-02-25 02:41 | PHYS DOC ---
Past Medical History Past Medical History: Anemia, Anxiety, Depression, Diverticulosis, GERD, High Cholesterol, Other Additional Past Medical Histor: COLITIS;ulcer on rectal wall,RECTAL BLEEDING Past Surgical History: Appendectomy, Cholecystectomy, Hysterectomy, Other Additional Past Surgical Histo: HERNIA REPAIR, FISTUAL REPAIR, RECTAL PROLAPSE REPAIR Alcohol Use: Occasionally Drug Use: None Adult General Chief Complaint Chief Complaint: RECTAL BLEED HPI HPI Patient is a 48 year old female who is presenting with rectal bleeding and rectal pain. Apparently she says she's had several episodes of large red stool. She says it is all over her underwear. Nursing staff does note to me that it is, just brown-colored material in her's underwear when she Dressed She was here yesterday she had labs it was discussed that she had been in a recent hospital a few days earlier and was not very forthcoming about that. She does have issues in the past with significant narcotic overuse according to extensive chart review by me on this visit. Patient says that she's having a lot of rectal pain it's constant it's been getting worse over the last week she says she feels weak she's using tramadol with minimal relief she plans to see her GI doctors next week Review of Systems Review of Systems Constitutional: Denies fever or chills [] Eyes: Denies change in visual acuity, redness, or eye pain [] Musculoskeletal: Denies back pain or joint pain [] Integument: Denies rash or skin lesions [] Neurologic: Denies headache, focal weakness or sensory changes [] All other systems were reviewed and found to be within normal limits, except as documented in this note. Current Medications Current Medications Current Medications Medications (Trade) Dose Ordered Sig/Ga Start Time Stop Time Status Last Admin Dose Admin Acetaminophen/ Hydrocodone Bitart (Lortab 5/325) 2 tab 1X ONCE 02/24/19 19:00 02/24/19 19:01 DC 02/24/19 19:25 2 TAB Allergies Allergies Allergies Coded Allergies Type Severity Reaction Last Updated Verified cephalexin Allergy Intermediate rash, red ears 08/29/18 Yes ketorolac Allergy Intermediate HIVES 11/22/18 Yes prochlorperazine Allergy Intermediate 11/24/16 Yes Physical Exam Physical Exam Constitutional: Well developed, well nourished, no acute distress, non-toxic appearance. [] HENT: Normocephalic, atraumatic, bilateral external ears normal, oropharynx moist, no oral exudates, nose normal. [] Eyes: PERRLA, EOMI, conjunctiva normal, no discharge. [] Neck: Normal range of motion, no tenderness, supple, no stridor. [] Cardiovascular:Heart rate regular rhythm, no murmur [] Lungs & Thorax: Bilateral breath sounds clear to auscultation [] Abdomen: Bowel sounds normal, soft, no tenderness, no masses, no pulsatile masses. [] Rectal exam there is trace brown stool no signs of active bleeding, tenderness noted on rectal palpation performed with nurse Karen in the room Skin: Warm, dry, no erythema, no rash. [] Extremities: No tenderness, no cyanosis, no clubbing, ROM intact, no edema. [] Neurologic: Alert and oriented X 3, normal motor function, normal sensory function, no focal deficits noted. [] Psychologic: Affect normal, judgement normal, mood normal. [] Current Patient Data Vital Signs Vital Signs Date Time Temp Pulse Resp B/P (MAP) Pulse Ox O2 Delivery O2 Flow Rate FiO2 02/24/19 19:48 92 15 156/89 (111) 97 Room Air 02/24/19 18:34 98.4 98.4 Lab Values Laboratory Tests Test 02/24/19 19:00 White Blood Count 5.4 x10^3/uL (4.0-11.0) Red Blood Count 3.75 x10^6/uL (3.50-5.40) Hemoglobin 8.1 g/dL (12.0-15.5) L Hematocrit 26.0 % (36.0-47.0) L Mean Corpuscular Volume 70 fL (79-100) L Mean Corpuscular Hemoglobin 22 pg (25-35) L Mean Corpuscular Hemoglobin Concent 31 g/dL (31-37) Red Cell Distribution Width 18.4 % (11.5-14.5) H Platelet Count 283 x10^3/uL (140-400) Neutrophils (%) (Auto) 78 % (31-73) H Lymphocytes (%) (Auto) 10 % (24-48) L Monocytes (%) (Auto) 8 % (0-9) Eosinophils (%) (Auto) 2 % (0-3) Basophils (%) (Auto) 1 % (0-3) Neutrophils # (Auto) 4.2 x10^3uL (1.8-7.7) Lymphocytes # (Auto) 0.6 x10^3/uL (1.0-4.8) L Monocytes # (Auto) 0.4 x10^3/uL (0.0-1.1) Eosinophils # (Auto) 0.1 x10^3/uL (0.0-0.7) Basophils # (Auto) 0.1 x10^3/uL (0.0-0.2) Platelet Estimate Adequate (ADEQUATE) Polychromasia Slight Hypochromasia Slight Poikilocytosis Slight Microcytosis Mod Macrocytosis Slight Prothrombin Time 12.1 SEC (11.7-14.0) Prothrombin Time INR 0.9 (0.8-1.1) Sodium Level 141 mmol/L (136-145) Potassium Level 3.6 mmol/L (3.5-5.1) Chloride Level 102 mmol/L (98-107) Carbon Dioxide Level 28 mmol/L (21-32) Anion Gap 11 (6-14) Blood Urea Nitrogen 10 mg/dL (7-20) Creatinine 0.7 mg/dL (0.6-1.0) Estimated GFR (Cockcroft-Gault) 88.9 BUN/Creatinine Ratio 14 (6-20) Glucose Level 151 mg/dL (70-99) H Calcium Level 9.0 mg/dL (8.5-10.1) Total Bilirubin 0.2 mg/dL (0.2-1.0) Aspartate Amino Transferase (AST) 17 U/L (15-37) Alanine Aminotransferase (ALT) 26 U/L (14-59) Alkaline Phosphatase 134 U/L (46-116) H Total Protein 7.3 g/dL (6.4-8.2) Albumin 3.3 g/dL (3.4-5.0) L Albumin/Globulin Ratio 0.8 (1.0-1.7) L Laboratory Tests 02/24/19 19:00 Laboratory Tests 02/24/19 19:00 EKG EKG [] Radiology/Procedures Radiology/Procedures [] Course & Med Decision Making Course & Med Decision Making Pertinent Labs and Imaging studies reviewed. (See chart for details) []48-year-old female with history of chronic pain as well as narcotic overuse and known proctitis known rectal ulcers who is presenting with continued rectal bleeding and pain. Hemoglobin is actually better there is no evidence of acute active GI bleeding in the emergency room. Patient is on multiple medications including mesalamine and hydrocortisone suppositories etc. I recommended that she continue her current regimen and follow up with her GI doctors next week for further evaluation. She did express significant concern about her pain control I offered [place] in the emergency room she was frustrated by that. At this point time I do not think that she requires admission to the hospital I did review this with her in detail I reviewed specifically the rising hemoglobin and the lack of obvious signs of acute bleeding in addition we did talk about the fact that she just recently had a CAT scan last week as well so we will defer any further acute intervention or diagnostics at this time recommended continue cur rent regimen and follow up with specialist that no her very well Charbel Disclaimer Charbel Disclaimer This electronic medical record was generated, in whole or in part, using a voice recognition dictation system. Departure Departure Impression: Primary Impression: Rectal pain, chronic Disposition: 01 HOME, SELF-CARE Condition: STABLE Referrals: UNKNOWN PCP NAME (PCP) Patient Instructions: Proctitis JAY ROSE MD February 25, 2019 02:41
== END 2019-02-24 20:00 | disposition home or self-care (01) ==
LOC: ER 18:17
DX: K62.89 Other specified diseases of anus and rectum (principal); G89.29 Other chronic pain; K92.1 Melena; K21.9 Gastro-esophageal reflux disease without esophagitis; E78.00 Pure hypercholesterolemia, unspecified; Z90.89 Acquired absence of other organs; Z90.49 Acquired absence of other specified parts of digestive tract; Z90.710 Acquired absence of both cervix and uterus; Z98.890 Other specified postprocedural states; Z88.1 Allergy status to other antibiotic agents; Z88.6 Allergy status to analgesic agent; Z88.8 Allergy status to other drugs, medicaments and biological substances
CPT/HCPCS: 36415; 80053; 85025; 85610; 86850; 86900; 86901; 99284

== ENCOUNTER 2019-03-08 20:58 | Emergency (ER) | payer OTHER ==
[~2019-03-08] VITALS: Ht 162.6 cm; Wt 117.9 kg
[2019-03-08 21:00] VITALS: BP 167/113
--- NOTE | 2019-03-08 21:59 | PHYS DOC ---
Past Medical History Past Medical History: Anemia, Anxiety, Depression, Diverticulosis, GERD, High Cholesterol, Other Additional Past Medical Histor: COLITIS;ulcer on rectal wall,RECTAL BLEEDING Past Surgical History: Appendectomy, Cholecystectomy, Hysterectomy, Other Additional Past Surgical Histo: HERNIA REPAIR, FISTUAL REPAIR, RECTAL PROLAPSE REPAIR Alcohol Use: Occasionally Drug Use: None Adult General Chief Complaint Chief Complaint: ABDOMINAL PAIN [facility] HPI 48-year-old female presents to ER for complaints of ongoing chronic rectal ble eding and pain. Patient states she has had several episodes of large bloody stools. Patient was evaluated in the ER on 02/25/19 and she reports symptoms are the same as that ER visit. Reports she came to the ER for pain relief. Patient denies fever, nausea or vomiting, or urinary symptoms. Patient reports she did her hydrocortisone suppository and prescribed medications earlier and states she is due for her night medications and suppository stating she did not take or uses medications prior to coming to the ER. Patient denies scheduling a follow- up appointment since her last ER visit. Patient provides multiple reasons why she hasn't been able to schedule a follow-up appointment and why she didn't take her night doses of prescribed medications. Review of Systems Review of Systems Constitutional: Denies fever or chills [] Eyes: Denies change in visual acuity, redness, or eye pain [] HENT: Denies nasal congestion or sore throat [] Respiratory: Denies cough or shortness of breath [] Cardiovascular: No additional information not addressed in HPI [] GI: Denies abdominal pain, nausea, vomiting, or diarrhea. Pt reports rectal bleeding/rectal pain : Denies dysuria or hematuria [] Musculoskeletal: Denies back pain or joint pain [] Integument: Denies rash or skin lesions [] Neurologic: Denies headache, focal weakness or sensory changes. Denies dizziness Endocrine: Denies polyuria or polydipsia [] All other systems were reviewed and found to be within normal limits, except as documented in this note. Allergies Allergies Allergies Coded Allergies Type Severity Reaction Last Updated Verified cephalexin Allergy Intermediate rash, red ears 08/29/18 Yes ketorolac Allergy Intermediate HIVES 11/22/18 Yes prochlorperazine Allergy Intermediate 11/24/16 Yes Physical Exam Physical Exam Constitutional: Well developed, well nourished, no acute distress, non-toxic appearance. [] HENT: Normocephalic, atraumatic, oropharynx moist, no oral exudates, nose normal. [] Eyes: Pupils equal, conjunctiva normal, no discharge. [] Neck: Normal range of motion, no tenderness, supple, no stridor. [] Cardiovascular: Heart rate regular rhythm, no murmur [] Lungs & Thorax: Bilateral breath sounds clear to auscultation- resp. equal/nonlabored Abdomen: Bowel sounds normal, soft/obese- no distention/rigidity, no tenderness, no masses, no pulsatile masses. [] Skin: Warm, dry, no erythema, no rash. [] Back: No tenderness, no CVA tenderness. [] Extremities: No tenderness, no cyanosis, no clubbing, ROM intact, no edema. [] Neurologic: Alert and oriented X 3, normal motor function, normal sensory function, no focal deficits noted. [] Psychologic: Affect normal, judgement normal, mood normal. [] Current Patient Data Vital Signs Vital Signs Date Time Temp Pulse Resp B/P (MAP) Pulse Ox O2 Delivery O2 Flow Rate FiO2 03/08/19 21:00 98.6 95 17 167/113 (131) 97 Room Air 98.6 EKG EKG [] Radiology/Procedures Radiology/Procedures [] Course & Med Decision Making Course & Med Decision Making During initial discussion patient stated symptoms were similar to prior ER visits with the last ER visit on 02/25/19. During initial discussion and exam to discuss plan of care with plans for and patient offered dose of tramadol she hadn't taken her night dose. When offered tramadol patient sat up in bed asking if that's all she would be given as she had come to ER for pain relief. Discussed chronic ongoing sxs. Pt became louder and questioned why she wouldn't be provided with pain medication- again offered dose of Tramadol for pain. Pt took rest of monitor leads off and said she could take that home. Plan of care was discussed further with needs for lab to check her H&H with her c/o rectal bleeding. Pt interrupted this provider during discussion and said she didn't want tests and she was leaving- pt was getting dressed and attempts to discuss tests were again interrupted with pt telling this provider to get out of her room. RN was at bedside during conversation. Pt eloped was department without tests/further discussion. Dragon Disclaimer Dragon Disclaimer This electronic medical record was generated, in whole or in part, using a voice recognition dictation system. Departure Departure Impression: Primary Impression: Rectal bleeding Additional Impression: Drug-seeking behavior Disposition: 07 AGAINST MEDICAL ADVICE Referrals: UNKNOWN PCP NAME (PCP) Problem Qualifiers LISSET ZAPATA APRN March 08, 2019 21:59
== END 2019-03-08 21:25 | disposition left against medical advice (07) ==
LOC: ER 20:58
DX: K62.5 Hemorrhage of anus and rectum (principal); Z76.5 Malingerer [conscious simulation]; K21.9 Gastro-esophageal reflux disease without esophagitis; E78.00 Pure hypercholesterolemia, unspecified; Z90.89 Acquired absence of other organs; Z90.49 Acquired absence of other specified parts of digestive tract; Z90.710 Acquired absence of both cervix and uterus; Z98.890 Other specified postprocedural states; Z88.1 Allergy status to other antibiotic agents; Z88.6 Allergy status to analgesic agent; Z88.8 Allergy status to other drugs, medicaments and biological substances
CPT/HCPCS: 99283

== ENCOUNTER 2019-06-18 17:52 | Emergency (ER) | payer OTHER ==
[~2019-06-18] VITALS: Ht 162.6 cm; Wt 117.9 kg
[~2019-06-18 17:52] MED LIST changes: -PANT40TA3 PO; +PANT40TA77 PO
[2019-06-18] MEDS ORDERED: IV NORMAL SALINE 1000ML BAG 1,000 ML IV ONE (19:15)
[2019-06-18] MEDS ORDERED: ONDANSETRON PF 4 MG/2 ML VIAL. IV ONE (19:15)
[2019-06-18] MEDS ORDERED: fentaNYL PF VIAL 100 MCG/2 ML VIAL IV ONE ×2 (19:15→22:00)
[2019-06-18 19:18] LABS: BILIRUBIN,URINE NEGATIVE (NEG); CLARITY,URINE CLEAR; COLOR,URINE YELLOW; NITRITE,URINE NEGATIVE (NEG); PROTEIN,URINE NEGATIVE (NEG-TRACE); UROBILINOGEN,URINE 0.2 mg/dL (0.2 mg/dL)
[2019-06-18 19:23] LABS: BACTERIA,URINE 0 /HPF (0-FEW); RBC,URINE >40 /HPF (0-2); SQUAMOUS EPITHELIAL CELL,UR FEW /LPF
[2019-06-18 19:44] LABS: BASO % 1 % (0-3); EOS # 0.1 x10^3/uL (0.0-0.7); EOS % 2 % (0-3); HEMATOCRIT 26.8 % (36.0-47.0); HEMOGLOBIN 8.7 g/dL (12.0-15.5); LYMPH # 0.6 x10^3/uL (1.0-4.8); LYMPH % 9 % (24-48); MEAN CORPUSCULAR HEMOGLOBIN 24 pg (25-35); MEAN CORPUSCULAR HGB CONC 33 g/dL (31-37); MEAN CORPUSCULAR VOLUME 72 fL (79-100); MONO # 0.4 x10^3/uL (0.0-1.1); MONO % 7 % (0-9); NEUT # 5.3 x10^3/uL (1.8-7.7); NEUT % 82 % (31-73); PLATELET COUNT 255 x10^3/uL (140-400); RED BLOOD COUNT 3.72 x10^6/uL (3.50-5.40); RED CELL DISTRIBUTION WIDTH 21.2 % (11.5-14.5); WHITE BLOOD COUNT 6.5 x10^3/uL (4.0-11.0)
--- NOTE | 2019-06-18 19:45 | PHYS DOC ---
Past Medical History Past Medical History: Anemia, Anxiety, Depression, Diverticulosis, GERD, High Cholesterol, Other Additional Past Medical Histor: COLITIS;ulcer on rectal wall,RECTAL BLEEDING Past Surgical History: Appendectomy, Cholecystectomy, Hysterectomy, Other Additional Past Surgical Histo: HERNIA REPAIR, FISTUAL REPAIR, RECTAL PROLAPSE REPAIR Smoking: Quit Greater Than 1 Year Alcohol Use: Occasionally Drug Use: None Adult General Chief Complaint Chief Complaint: ABDOMINAL PAIN HPI HPI 48-year-old female presents with report of right sided flank pain with radiation to abdomen which is been ongoing since 1600 today. Patient does report some associated nausea without vomiting. Denies fever or chills. Denies hematuria or dysuria. Patient does have a mode history of kidney stones. Patient does report pain waxes and wanes in intensity. Denies known trauma. Denies rash. Patient does also have a history of chronic colitis/proctitis with rectal bleeding. Patient reports symptoms aren't not similar to these episodes and has not had any flares since she started new medications. Review of Systems Review of Systems Constitutional: Denies fever or chills Eyes: Denies redness or eye pain HENT: Denies nasal congestion or sore throat Respiratory: Denies cough or shortness of breath Cardiovascular: Denies chest pain or palpitations GI: Reports abdominal pain and nausea; denies diarrhea, melena, hematochezia, or vomiting : Denies dysuria or hematuria Musculoskeletal: Denies joint pain; reports right flank pain Integument: Denies rash or skin lesions Neurologic: Denies headache, focal weakness or sensory changes Complete systems were reviewed and found to be within normal limits, except as documented in this note. Current Medications Current Medications Current Medications Medications (Trade) Dose Ordered Sig/Ga Start Time Stop Time Status Last Admin Dose Admin Fentanyl Citrate (Fentanyl 2ml Vial) 50 mcg 1X ONCE 06/18/19 19:15 06/18/19 19:16 DC 06/18/19 19:44 50 MCG Magnesium Chloride (Mag Delay) 64 mg 1X ONCE 06/18/19 21:45 06/18/19 21:46 UNV Ondansetron HCl (Zofran) 4 mg 1X ONCE 06/18/19 19:15 06/18/19 19:16 DC 06/18/19 19:44 4 MG Sodium Chloride 1,000 ml @ 1,000 mls/hr 1X ONCE 06/18/19 19:15 06/18/19 20:14 DC 06/18/19 19:44 1,000 MLS/HR Allergies Allergies Allergies Coded Allergies Type Severity Reaction Last Updated Verified cephalexin Allergy Intermediate rash, red ears 08/29/18 Yes ketorolac Allergy Intermediate HIVES 11/22/18 Yes prochlorperazine Allergy Intermediate 11/24/16 Yes Physical Exam Physical Exam Constitutional: Well developed, well nourished, uncomfortable, non-toxic appearance HENT: Normocephalic, atraumatic, oropharynx moist Eyes: Conjunctiva normal, no discharge Neck: Normal range of motion, no tenderness, supple Cardiovascular: Heart rate normal, regular rhythm Lungs & Thorax: Bilateral breath sounds clear to auscultation, no wheezing Abdomen: Soft, RLQ pain on palpation Skin: Warm, dry, no erythema, no rash Back: No tenderness, right CVA tenderness Extremities: No tenderness, ROM intact, no edema Neurologic: Alert and oriented X 3, no focal deficits noted Psychologic: Affect normal, judgement normal Current Patient Data Vital Signs Vital Signs Date Time Temp Pulse Resp B/P (MAP) Pulse Ox O2 Delivery O2 Flow Rate FiO2 06/18/19 20:00 106 165/97 (119) 99 Room Air 06/18/19 19:44 18 06/18/19 19:10 98.8 98.8 Lab Values Laboratory Tests Test 06/18/19 18:55 06/18/19 19:40 06/18/19 20:48 Urine Collection Type Unknown Urine Color Yellow Urine Clarity Clear Urine pH 6.0 Urine Specific [place] 1.010 Urine Protein Negative mg/dL (NEG-TRACE) Urine Glucose (UA) 100 mg/dL (NEG) Urine Ketones (Stick) Negative mg/dL (NEG) Urine Blood Large (NEG) Urine Nitrite Negative (NEG) Urine Bilirubin Negative (NEG) Urine Urobilinogen Dipstick 0.2 mg/dL (0.2 mg/dL) Urine Leukocyte Esterase Negative (NEG) Urine RBC >40 /HPF (0-2) Urine WBC 1-4 /HPF (0-4) Urine Squamous Epithelial Cells Few /LPF Urine Bacteria 0 /HPF (0-FEW) Urine Mucus Slight /LPF White Blood Count 6.5 x10^3/uL (4.0-11.0) Red Blood Count 3.72 x10^6/uL (3.50-5.40) Hemoglobin 8.7 g/dL (12.0-15.5) L Hematocrit 26.8 % (36.0-47.0) L Mean Corpuscular Volume 72 fL (79-100) L Mean Corpuscular Hemoglobin 24 pg (25-35) L Mean Corpuscular Hemoglobin Concent 33 g/dL (31-37) Red Cell Distribution Width 21.2 % (11.5-14.5) H Platelet Count 255 x10^3/uL (140-400) Neutrophils (%) (Auto) 82 % (31-73) H Lymphocytes (%) (Auto) 9 % (24-48) L Monocytes (%) (Auto) 7 % (0-9) Eosinophils (%) (Auto) 2 % (0-3) Basophils (%) (Auto) 1 % (0-3) Neutrophils # (Auto) 5.3 x10^3/uL (1.8-7.7) Lymphocytes # (Auto) 0.6 x10^3/uL (1.0-4.8) L Monocytes # (Auto) 0.4 x10^3/uL (0.0-1.1) Eosinophils # (Auto) 0.1 x10^3/uL (0.0-0.7) Basophils # (Auto) 0.0 x10^3/uL (0.0-0.2) Platelet Estimate Adequate (ADEQUATE) Polychromasia Slight Hypochromasia Slight Anisocytosis Mod Microcytosis Slight Sodium Level 143 mmol/L (136-145) Potassium Level 3.7 mmol/L (3.5-5.1) Chloride Level 106 mmol/L (98-107) Carbon Dioxide Level 27 mmol/L (21-32) Anion Gap 10 (6-14) Blood Urea Nitrogen 8 mg/dL (7-20) Creatinine 1.1 mg/dL (0.6-1.0) H Estimated GFR (Cockcroft-Gault) 52.8 BUN/Creatinine Ratio 7 (6-20) Glucose Level 127 mg/dL (70-99) H Calcium Level 8.2 mg/dL (8.5-10.1) L Magnesium Level 1.6 mg/dL (1.8-2.4) L Total Bilirubin 0.1 mg/dL (0.2-1.0) L Aspartate Amino Transferase (AST) 6 U/L (15-37) L Alanine Aminotransferase (ALT) 20 U/L (14-59) Alkaline Phosphatase 113 U/L (46-116) Total Protein 6.6 g/dL (6.4-8.2) Albumin 3.1 g/dL (3.4-5.0) L Albumin/Globulin Ratio 0.9 (1.0-1.7) L Lipase 155 U/L (73-393) Laboratory Tests 06/18/19 19:40 Laboratory Tests 06/18/19 20:48 EKG EKG [] Radiology/Procedures Radiology/Procedures PROCEDURE: CT ABDOMEN PELVIS WO CONTRAST Exam: CT abdomen and pelvis without contrast INDICATION: Right flank pain TECHNIQUE: Sequential axial images through the abdomen and pelvis obtained without contrast IV contrast. Sagittal and coronal reformatted images were reconstructed from the axial data and reviewed. Comparisons: 02/16/2019 FINDINGS: Heart size is normal. No pericardial effusion. Visualized lung bases are clear. No pleural effusion. Evaluation of solid organs is limited secondary to noncontrast technique. Liver, spleen, pancreas and adrenals are unremarkable. Gallbladder surgically absent. No perinephric inflammation or hydronephrosis. No renal or ureteral calculi are identified. Bladder is distended and appears thin walled. Prostate is not enlarged. Some mucosal fat deposition noted within the colon, likely sequela of prior inflammation. Large and small bowel are unremarkable. Appendix is not identified. No obstruction. No free intra-abdominal air or fluid. Abdominal aorta has a normal course and caliber. Abdominal vasculature is patent. No enlarged intra-abdominal lymph nodes are identified. No suspicious osseous lesions or acute fractures. IMPRESSION: 1. No renal or ureteral calculi. No evidence for obstructive uropathy. 2. No acute process identified within the abdomen or pelvis. Exposure: One or more of the following in the visualized dose reduction techniques were utilized for this examination: 1. Automated exposure control 2. Adjustment of the MA and/or KV according to patient size 3. Use of iterative of reconstructive technique Electronically signed by: Laura Maloney MD (06/18/2019 7:50 PM) [facility] Course & Med Decision Making Course & Med Decision Making Pertinent Labs and Imaging studies reviewed. (See chart for details) Patient presents with right-sided abdominal/flank pain which started suddenly today. Reports some associated nausea. Patient does have remote history of kidney stones. Labs obtained and posted to chart. Anemia at baseline per [employer] review. UA with microscopic hematuria. BUN/Creat stable. Hypomagnesemia addressed. CT abdomen/pelvis without acute process. Possible that patient passed a kidney stone. Symptomatic treatment provided with interval improvement of symptoms. IV fluid hydration given. Patient stable for discharge with outpatient follow-up with PCP. Discussed findings and plan with patient, who acknowledges understanding and agreement. Dragon Disclaimer Dragon Disclaimer This electronic medical record was generated, in whole or in part, using a voice recognition dictation system. Departure Departure Impression: Primary Impression: Flank pain Additional Impressions: Hematuria Hypomagnesemia Disposition: HOME, SELF-CARE Condition: STABLE Referrals: MAGUE PARRY (PCP) CAM CARTER MD Patient Instructions: Flank Pain, [id number], Hematuria, Adult, Hypomagnesemia Scripts Hydrocodone/Apap 5-325 (NORCO 5-325 TABLET) 1 Each Tablet 0.5-1 TAB PO PRN Q6HRS PRN for PAIN, #10 TAB 0 Refills Prov: MAGUE HICKS DO 06/18/19 Ondansetron (ONDANSETRON ODT) 4 Mg Tab.rapdis 1 TAB PO PRN Q6-8HRS PRN for NAUSEA, #16 TAB Prov: MAGUE HICKS DO 06/18/19 Problem Qualifiers Additional Impressions: Hematuria Hematuria type: other microscopic Qualified Codes: R31.29 - Other microscopic hematuria MAGUE HICKS DO Jun 18, 2019 19:45
--- NOTE | 2019-06-18 19:54 | RAD ---
Exam: CT abdomen and pelvis without contrast INDICATION: Right flank pain TECHNIQUE: Sequential axial images through the abdomen and pelvis obtained without contrast IV contrast. Sagittal and coronal reformatted images were reconstructed from the axial data and reviewed. Comparisons: 02/16/2019 FINDINGS: Heart size is normal. No pericardial effusion. Visualized lung bases are clear. No pleural effusion. Evaluation of solid organs is limited secondary to noncontrast technique. Liver, spleen, pancreas and adrenals are unremarkable. Gallbladder surgically absent. No perinephric inflammation or hydronephrosis. No renal or ureteral calculi are identified. Bladder is distended and appears thin walled. Prostate is not enlarged. Some mucosal fat deposition noted within the colon, likely sequela of prior inflammation. Large and small bowel are unremarkable. Appendix is not identified. No obstruction. No free intra-abdominal air or fluid. Abdominal aorta has a normal course and caliber. Abdominal vasculature is patent. No enlarged intra-abdominal lymph nodes are identified. No suspicious osseous lesions or acute fractures. IMPRESSION: 1. No renal or ureteral calculi. No evidence for obstructive uropathy. 2. No acute process identified within the abdomen or pelvis. Exposure: One or more of the following in the visualized dose reduction techniques were utilized for this examination: 1. Automated exposure control 2. Adjustment of the MA and/or KV according to patient size 3. Use of iterative of reconstructive technique Electronically signed by: Laura Maloney MD (06/18/2019 7:50 PM) [facility]
[2019-06-18] MEDS ORDERED: ONDA4TAB12 PO (20:09)
[2019-06-18] MEDS ORDERED: HYDR-3164 PO (20:09)
[2019-06-18 20:33] LABS: ANISOCYTOSIS MOD; HYPOCHROMIA SLIGHT; MICROCYTOSIS SLIGHT; PLT ESTIMATE ADEQUATE (ADEQUATE); POLYCHROMASIA SLIGHT
[2019-06-18 21:16] LABS: CALCIUM 8.2 mg/dL (8.5-10.1); CREATININE 1.1 mg/dL (0.6-1.0); GFR 52.8; POTASSIUM 3.7 mmol/L (3.5-5.1)
[2019-06-18 21:20] LABS: ALBUMIN 3.1 g/dL (3.4-5.0); ALBUMIN/GLOBULIN RATIO 0.9 (1.0-1.7); MAGNESIUM 1.6 mg/dL (1.8-2.4); TOTAL BILIRUBIN 0.1 mg/dL (0.2-1.0); TOTAL PROTEIN 6.6 g/dL (6.4-8.2)
[2019-06-18 22:00] VITALS: BP 148/97
[2019-06-18] MEDS ORDERED: MAGNESIUM CHLORIDE ER 64 MG TABLET.ER PO ONE (22:00)
== END 2019-06-18 22:13 | disposition home or self-care (01) ==
LOC: ER 17:52
DX: R31.29 Other microscopic hematuria (principal); R10.31 Right lower quadrant pain; E83.42 Hypomagnesemia; K21.9 Gastro-esophageal reflux disease without esophagitis; E78.00 Pure hypercholesterolemia, unspecified; Z98.890 Other specified postprocedural states; Z90.710 Acquired absence of both cervix and uterus; Z90.49 Acquired absence of other specified parts of digestive tract; Z90.89 Acquired absence of other organs; Z87.19 Personal history of other diseases of the digestive system; Z87.891 Personal history of nicotine dependence; Z88.1 Allergy status to other antibiotic agents; Z88.6 Allergy status to analgesic agent; Z88.8 Allergy status to other drugs, medicaments and biological substances
CPT/HCPCS: 36415; 74176; 80053; 81001; 83690; 83735; 85025; 96374; 96375; 96376; 99285; J2405; J3010; J7030

== ENCOUNTER 2019-07-30 17:09 | Emergency (ER) | payer OTHER ==
[~2019-07-30] VITALS: Ht 162.6 cm; Wt 113.4 kg
[2019-07-30] MEDS ORDERED: fentaNYL PF VIAL 100 MCG/2 ML VIAL IV ONE ×2 (18:30→20:45)
[2019-07-30] MEDS ORDERED: DEXAMETHASONE SOD PHOS 4 MG/ML VIAL IVP ONE (18:30)
[2019-07-30] MEDS ORDERED: ONDANSETRON PF 4 MG/2 ML VIAL. IV ONE (18:30)
[2019-07-30] MEDS ORDERED: IV NORMAL SALINE 1000ML BAG 1,000 ML IV ONE (18:30)
[2019-07-30] MEDS ORDERED: FAMOTIDINE 20 MG/2 ML VIAL IVP ONE (18:30)
[2019-07-30 18:43] LABS: BILIRUBIN,URINE NEGATIVE (NEG); CLARITY,URINE CLEAR; COLOR,URINE YELLOW; NITRITE,URINE NEGATIVE (NEG); PROTEIN,URINE NEGATIVE (NEG-TRACE); UROBILINOGEN,URINE 0.2 mg/dL (0.2 mg/dL)
[2019-07-30] MEDS ORDERED: PRED20TA PO (18:44)
[2019-07-30] MEDS ORDERED: ONDA4TAB12 PO (18:44)
--- NOTE | 2019-07-30 18:44 | PHYS DOC ---
Past Medical History Past Medical History: Anxiety, GERD, High Cholesterol Additional Past Medical Histor: COLITIS;ulcer on rectal wall,RECTAL BLEEDING Past Surgical History: Appendectomy, Cholecystectomy, Hysterectomy, Other Additional Past Surgical Histo: HERNIA REPAIR, FISTUAL REPAIR, RECTAL PROLAPSE REPAIR Smoking: Quit Greater Than 1 Year Alcohol Use: None Drug Use: None Adult General Chief Complaint Chief Complaint: ABDOMINAL PAIN HPI HPI 49-year-old female presents with report of right sided abdominal pain with radiation to back which is been ongoing since 2200 today. Patient does report some associated nausea without vomiting. Denies hematuria or dysuria. Denies rash. Patient does also have a history of chronic colitis/proctitis with rectal bleeding. Patient reports symptoms are similar to prior episodes of colitis. Denies recent travel. Denies trauma. Denies fever/chills. Review of Systems Review of Systems Constitutional: Denies fever or chills Eyes: Denies redness or eye pain HENT: Denies nasal congestion or sore throat Respiratory: Denies cough or shortness of breath Cardiovascular: Denies chest pain or palpitations GI: Reports left lower abdominal pain and nausea; denies vomiting : Denies dysuria or hematuria Musculoskeletal: Reports radiation to back; denies joint pain Integument: Denies rash or skin lesions Neurologic: Denies headache, focal weakness or sensory changes Complete systems were reviewed and found to be within normal limits, except as documented in this note. Current Medications Current Medications Current Medications Medications (Trade) Dose Ordered Sig/[facility] Start Time Stop Time Status Last Admin Dose Admin Dexamethasone Sodium Phosphate (Decadron) 10 mg 1X ONCE 07/30/19 18:30 07/30/19 18:56 DC 07/30/19 19:02 10 MG Famotidine (Pepcid Vial) 20 mg 1X ONCE 07/30/19 18:30 07/30/19 18:56 DC 07/30/19 19:02 20 MG Fentanyl Citrate (Fentanyl 2ml Vial) 50 mcg 1X ONCE 07/30/19 18:30 07/30/19 18:56 DC 07/30/19 19:03 50 MCG Ondansetron HCl (Zofran) 4 mg 1X ONCE 07/30/19 18:30 07/30/19 18:56 DC 07/30/19 19:02 4 MG Sodium Chloride 1,000 ml @ 1,000 mls/hr 1X ONCE 07/30/19 18:30 07/30/19 19:29 DC 07/30/19 19:04 1,000 MLS/HR Allergies Allergies Allergies Coded Allergies Type Severity Reaction Last Updated Verified cephalexin Allergy Intermediate rash, red ears 08/29/18 Yes ketorolac Allergy Intermediate HIVES 11/22/18 Yes prochlorperazine Allergy Intermediate 11/24/16 Yes Physical Exam Physical Exam Constitutional: Well developed, well nourished, no acute distress, non-toxic appearance HENT: Normocephalic, atraumatic, oropharynx moist Eyes: Conjunctiva normal, no discharge Neck: Normal range of motion, no tenderness, supple Cardiovascular: Heart rate normal, regular rhythm Lungs & Thorax: Bilateral breath sounds clear to auscultation, no wheezing Abdomen: Soft, left lower quadrant tenderness, no rebound tenderness, no distention Skin: Warm, dry, no erythema, no rash Back: No tenderness, no CVA tenderness Extremities: No tenderness, ROM intact, no edema Neurologic: Alert and oriented X 3, no focal deficits noted Psychologic: Affect normal, judgement normal Current Patient Data Vital Signs Vital Signs Date Time Temp Pulse Resp B/P (MAP) Pulse Ox O2 Delivery O2 Flow Rate FiO2 07/30/19 19:03 16 97 Room Air 07/30/19 18:30 98.7 113 167/103 (124) 98.7 Lab Values Laboratory Tests Test 07/30/19 18:14 07/30/19 19:55 Urine Collection Type Unknown Urine Color Yellow Urine Clarity Clear Urine pH 8.0 Urine Specific [place] 1.015 Urine Protein Negative mg/dL (NEG-TRACE) Urine Glucose (UA) Negative mg/dL (NEG) Urine Ketones (Stick) Negative mg/dL (NEG) Urine Blood Negative (NEG) Urine Nitrite Negative (NEG) Urine Bilirubin Negative (NEG) Urine Urobilinogen Dipstick 0.2 mg/dL (0.2 mg/dL) Urine Leukocyte Esterase Negative (NEG) Urine RBC 0 /HPF (0-2) Urine WBC Occ /HPF (0-4) Urine Squamous Epithelial Cells Few /LPF Urine Bacteria Few /HPF (0-FEW) Urine Mucus Slight /LPF White Blood Count 4.3 x10^3/uL (4.0-11.0) Red Blood Count 3.47 x10^6/uL (3.50-5.40) L Hemoglobin 7.8 g/dL (12.0-15.5) L Hematocrit 24.6 % (36.0-47.0) L Mean Corpuscular Volume 71 fL (79-100) L Mean Corpuscular Hemoglobin 22 pg (25-35) L Mean Corpuscular Hemoglobin Concent 32 g/dL (31-37) Red Cell Distribution Width 17.5 % (11.5-14.5) H Platelet Count 250 x10^3/uL (140-400) Neutrophils (%) (Auto) 74 % (31-73) H Lymphocytes (%) (Auto) 13 % (24-48) L Monocytes (%) (Auto) 8 % (0-9) Eosinophils (%) (Auto) 4 % (0-3) H Basophils (%) (Auto) 1 % (0-3) Neutrophils # (Auto) 3.2 x10^3/uL (1.8-7.7) Lymphocytes # (Auto) 0.6 x10^3/uL (1.0-4.8) L Monocytes # (Auto) 0.4 x10^3/uL (0.0-1.1) Eosinophils # (Auto) 0.2 x10^3/uL (0.0-0.7) Basophils # (Auto) 0.0 x10^3/uL (0.0-0.2) Platelet Estimate Adequate (ADEQUATE) Giant Platelets Occ Polychromasia Slight Hypochromasia Mod Anisocytosis Slight Microcytosis Mod Sodium Level 143 mmol/L (136-145) Potassium Level 3.7 mmol/L (3.5-5.1) Chloride Level 105 mmol/L (98-107) Carbon Dioxide Level 29 mmol/L (21-32) Anion Gap 9 (6-14) Blood Urea Nitrogen 12 mg/dL (7-20) Creatinine 0.7 mg/dL (0.6-1.0) Estimated GFR (Cockcroft-Gault) 88.6 BUN/Creatinine Ratio 17 (6-20) Glucose Level 123 mg/dL (70-99) H Calcium Level 8.8 mg/dL (8.5-10.1) Magnesium Level 1.8 mg/dL (1.8-2.4) Total Bilirubin 0.2 mg/dL (0.2-1.0) Aspartate Amino Transferase (AST) 9 U/L (15-37) L Alanine Aminotransferase (ALT) 22 U/L (14-59) Alkaline Phosphatase 100 U/L (46-116) Creatine Kinase 31 U/L (26-192) Creatine Kinase MB (Mass) < 0.5 ng/mL (0.0-3.6) Creatine Kinase MB Relative Index % (0-4) Total Protein 6.4 g/dL (6.4-8.2) Albumin 3.1 g/dL (3.4-5.0) L Albumin/Globulin Ratio 0.9 (1.0-1.7) L Lipase 194 U/L (73-393) Laboratory Tests 07/30/19 19:55 Laboratory Tests 07/30/19 19:55 EKG EKG [] Radiology/Procedures Radiology/Procedures [] Course & Med Decision Making Course & Med Decision Making Pertinent Labs studies reviewed. (See chart for details) Patient with past medical history of chronic colitis/proctitis presents with left lower quadrant abdominal pain that started at 2200. Reports associated nausea. Pain addressed. IV fluid hydration provided. Labs obtained and posted to chart. Chronic anemia noted. [employer] review notes patient with recent CT imaging on 06/18/2019 without acute finding. Given chronicity of complaints and lack of peritoneal signs will hold CT imaging at this time. Patient stable for discharge with outpatient follow-up with PCP/GI. Discussed findings and plan with patient, who acknowledges understanding and agreement. Dragon Disclaimer Dragon Disclaimer This electronic medical record was generated, in whole or in part, using a voice recognition dictation system. Departure Departure Impression: Primary Impression: Abdominal pain Additional Impression: Anemia Disposition: 01 HOME, SELF-CARE Condition: STABLE Referrals: MAGUE PARRY (PCP) DAKSHA LEA MD Patient Instructions: Abdominal Pain (Nonspecific), Anemia, FAQs, Colitis Scripts Prednisone (PREDNISONE) 20 Mg Tablet 2 TAB PO DAILY, #10 TAB Prov: MAGUE HICKS DO 07/30/19 Ondansetron (ONDANSETRON ODT) 4 Mg Tab.rapdis 1 TAB PO PRN Q6-8HRS for VOMITING, #16 TAB Prov: MAGUE HICKS DO 07/30/19 Problem Qualifiers Primary Impression: Abdominal pain Abdominal location: left lower quadrant Qualified Codes: R10.32 - Left lower quadrant pain Additional Impression: Anemia Anemia type: unspecified type Qualified Codes: D64.9 - Anemia, unspecified MAGUE HICKS DO Jul 30, 2019 18:44
[2019-07-30 18:46] LABS: BACTERIA,URINE FEW /HPF (0-FEW); RBC,URINE 0 /HPF (0-2); WBC,URINE OCC /HPF (0-4)
[2019-07-30 18:47] LABS: SQUAMOUS EPITHELIAL CELL,UR FEW /LPF
[2019-07-30 20:01] LABS: BASO % 1 % (0-3); EOS # 0.2 x10^3/uL (0.0-0.7); EOS % 4 % (0-3); HEMATOCRIT 24.6 % (36.0-47.0); HEMOGLOBIN 7.8 g/dL (12.0-15.5); LYMPH # 0.6 x10^3/uL (1.0-4.8); LYMPH % 13 % (24-48); MEAN CORPUSCULAR HEMOGLOBIN 22 pg (25-35); MEAN CORPUSCULAR HGB CONC 32 g/dL (31-37); MEAN CORPUSCULAR VOLUME 71 fL (79-100); MONO # 0.4 x10^3/uL (0.0-1.1); MONO % 8 % (0-9); NEUT # 3.2 x10^3/uL (1.8-7.7); NEUT % 74 % (31-73); PLATELET COUNT 250 x10^3/uL (140-400); RED BLOOD COUNT 3.47 x10^6/uL (3.50-5.40); RED CELL DISTRIBUTION WIDTH 17.5 % (11.5-14.5); WHITE BLOOD COUNT 4.3 x10^3/uL (4.0-11.0)
[2019-07-30 20:15] LABS: CALCIUM 8.8 mg/dL (8.5-10.1); CREATININE 0.7 mg/dL (0.6-1.0); GFR 88.6; POTASSIUM 3.7 mmol/L (3.5-5.1)
[2019-07-30 20:21] LABS: ALBUMIN 3.1 g/dL (3.4-5.0); ALBUMIN/GLOBULIN RATIO 0.9 (1.0-1.7); MAGNESIUM 1.8 mg/dL (1.8-2.4); TOTAL BILIRUBIN 0.2 mg/dL (0.2-1.0); TOTAL PROTEIN 6.4 g/dL (6.4-8.2)
[2019-07-30 20:25] LABS: ANISOCYTOSIS SLIGHT; HYPOCHROMIA MOD; MICROCYTOSIS MOD; PLT ESTIMATE ADEQUATE (ADEQUATE); POLYCHROMASIA SLIGHT
[2019-07-30 20:29] LABS: CREATINE KINASE 31 U/L (26-192)
[2019-07-30 20:30] VITALS: BP 161/93
== END 2019-07-30 20:56 | disposition home or self-care (01) ==
LOC: ER 17:09
DX: R10.32 Left lower quadrant pain (principal); D64.9 Anemia, unspecified; R11.0 Nausea; F41.9 Anxiety disorder, unspecified; K21.9 Gastro-esophageal reflux disease without esophagitis; E78.00 Pure hypercholesterolemia, unspecified; Z90.89 Acquired absence of other organs; Z90.49 Acquired absence of other specified parts of digestive tract; Z90.710 Acquired absence of both cervix and uterus; Z87.891 Personal history of nicotine dependence; Z88.1 Allergy status to other antibiotic agents; Z88.8 Allergy status to other drugs, medicaments and biological substances
CPT/HCPCS: 36415; 80053; 81001; 82553; 83690; 83735; 85025; 96374; 96375; 96376; 99284; J1100; J2405; J3010; J3490; J7030

== ENCOUNTER 2019-09-10 20:24 | Emergency (ER) | payer OTHER ==
[~2019-09-10] VITALS: Ht 162.6 cm; Wt 115.7 kg
[~2019-09-10 20:24] MED LIST changes: +PRED20TA PO
[2019-09-10 20:31] VITALS: BP 140/101
[2019-09-10] MEDS ORDERED: IV NORMAL SALINE 1000ML BAG 1,000 ML IV ONE (20:45)
[2019-09-10] MEDS ORDERED: HALOPERIDOL LACTATE 5 MG/ML VIAL. IVP ONE (20:45)
[2019-09-10] MEDS ORDERED: diphenhydrAMINE 50 MG/ML VIAL IVP ONE (20:45)
[2019-09-10 20:50] LABS: BILIRUBIN,URINE NEGATIVE (NEG); CLARITY,URINE CLEAR; COLOR,URINE YELLOW; NITRITE,URINE NEGATIVE (NEG); PH,URINE 7.5; PROTEIN,URINE NEGATIVE (NEG-TRACE); UROBILINOGEN,URINE 0.2 mg/dL (0.2 mg/dL)
[2019-09-10 20:55] LABS: BACTERIA,URINE 0 /HPF (0-FEW); RBC,URINE 0 /HPF (0-2); WBC,URINE 0 /HPF (0-4)
[2019-09-10 20:56] LABS: SQUAMOUS EPITHELIAL CELL,UR FEW /LPF
[2019-09-10 20:57] LABS: BARBITURATES NEG (NEG); BENZODIAZEPINES NEG (NEG); CANNABINOIDS POS (NEG); COCAINE NEG (NEG); METHADONE NEG (NEG); OPIATES NEG (NEG); PHENCYCLIDINE NEG (NEG)
[2019-09-10 20:59] LABS: AMPHETAMINE/METHAMPHETAMINE NEG (NEG)
--- NOTE | 2019-09-10 21:22 | PHYS DOC ---
Past Medical History Past Medical History: Anxiety, GERD, High Cholesterol Additional Past Medical Histor: COLITIS;ulcer on rectal wall,RECTAL BLEEDING Past Surgical History: Appendectomy, Cholecystectomy, Hysterectomy, Other Additional Past Surgical Histo: HERNIA REPAIR, FISTUAL REPAIR, RECTAL PROLAPSE REPAIR Alcohol Use: None Drug Use: None Adult General Chief Complaint Chief Complaint: ABDOMINAL PAIN HPI HPI Patient is a 49 year old female with history of chronic abdominal pain, colitis and proctitis resents with left lower quadrant pain, and mucousy stools with this morning. Abdominal pain is described as sharp. Is not associated with flank pain, nausea vomiting, or bloody stools. No fever chills or sweats. Patient's been evaluated multiple times in this ED for the same. 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 No other acute symptoms or complaints. [] Review of Systems Review of Systems ROS as per hpi All other systems were reviewed and found to be within normal limits, except as documented in this note. Current Medications Current Medications Current Medications Medications (Trade) Dose Ordered Sig/Ga Start Time Stop Time Status Last Admin Dose Admin Diphenhydramine HCl (Benadryl) 25 mg 1X ONCE 09/10/19 20:45 09/10/19 20:47 DC Haloperidol Lactate (Haldol Inj) 2.5 mg 1X ONCE 09/10/19 20:45 09/10/19 20:47 DC Sodium Chloride 1,000 ml @ 1,000 mls/hr 1X ONCE 09/10/19 20:45 09/10/19 21:44 Allergies Allergies Allergies Coded Allergies Type Severity Reaction Last Updated Verified cephalexin Allergy Intermediate rash, red ears 08/29/18 Yes ketorolac Allergy Intermediate HIVES 11/22/18 Yes prochlorperazine Allergy Intermediate 11/24/16 Yes Physical Exam Physical Exam Constitutional: Well developed, well nourished, no acute distress. [] HENT: Normocephalic, atraumatic, bilateral external ears normal, oropharynx moist, nose normal. [] Eyes: PERRLA, EOMI, conjunctiva normal, no discharge. [] Neck: Normal range of motion, no tenderness. [] Cardiovascular:Heart rate regular rhythm, no murmur [] Lungs & Thorax: Bilateral breath sounds clear to auscultation [] Abdomen: Bowel sounds normal, soft, left lower quadrant pain, mild tenderness. [] Skin: Warm, dry, no erythema, no rash. [] Back: No tenderness, no CVA tenderness. [] Extremities: No tenderness, no edema. [] Neurologic: Alert and oriented X 3, normal motor function, normal sensory function, no focal deficits noted. [] Psychologic: Affect normal, judgement normal, mood normal. [] Current Patient Data Vital Signs Vital Signs Date Time Temp Pulse Resp B/P (MAP) Pulse Ox O2 Delivery O2 Flow Rate FiO2 09/10/19 20:31 98.1 106 16 140/101 (114) 99 Room Air 98.1 Lab Values Laboratory Tests Test 09/10/19 20:40 Urine Collection Type Unknown Urine Color Yellow Urine Clarity Clear Urine pH 7.5 Urine Specific [place] <=1.005 Urine Protein Negative mg/dL (NEG-TRACE) Urine Glucose (UA) Negative mg/dL (NEG) Urine Ketones (Stick) Negative mg/dL (NEG) Urine Blood Negative (NEG) Urine Nitrite Negative (NEG) Urine Bilirubin Negative (NEG) Urine Urobilinogen Dipstick 0.2 mg/dL (0.2 mg/dL) Urine Leukocyte Esterase Negative (NEG) Urine RBC 0 /HPF (0-2) Urine WBC 0 /HPF (0-4) Urine Squamous Epithelial Cells Few /LPF Urine Bacteria 0 /HPF (0-FEW) Urine Opiates Screen Neg (NEG) Urine Methadone Screen Neg (NEG) Urine Barbiturates Neg (NEG) Urine Phencyclidine Screen Neg (NEG) Urine Amphetamine/Methamphetamine Neg (NEG) Urine Benzodiazepines Screen Neg (NEG) Urine Cocaine Screen Neg (NEG) Urine Cannabinoids Screen Pos (NEG) Urine Ethyl Alcohol Neg (NEG) EKG EKG [] Radiology/Procedures Radiology/Procedures [] Course & Med Decision Making Course & Med Decision Making Pertinent Labs and Imaging studies reviewed. (See chart for details) [Lab work pending, medications declined by patient. Patient abruptly left AGAINST MEDICAL ADVICE prior ] Dragon Disclaimer Dragon Disclaimer This electronic medical record was generated, in whole or in part, using a voice recognition dictation system. Departure Departure Impression: Primary Impression: Abdominal pain Disposition: 07 AGAINST MEDICAL ADVICE Condition: GUARDED Referrals: MAGUE PARRY (PCP) ENMA PARRY DO Sep 10, 2019 21:22
== END 2019-09-10 21:06 | disposition left against medical advice (07) ==
LOC: ER 20:24
DX: G89.29 Other chronic pain (principal); R10.32 Left lower quadrant pain; K21.9 Gastro-esophageal reflux disease without esophagitis; E78.00 Pure hypercholesterolemia, unspecified; Z90.89 Acquired absence of other organs; Z90.49 Acquired absence of other specified parts of digestive tract; Z90.710 Acquired absence of both cervix and uterus; Z88.1 Allergy status to other antibiotic agents; Z88.8 Allergy status to other drugs, medicaments and biological substances
CPT/HCPCS: 80307; 81001; 99284

== ENCOUNTER 2020-05-02 20:02 | Emergency (ER) | payer OTHER ==
[~2020-05-02] VITALS: Ht 162.6 cm; Wt 109.1 kg
[~2020-05-02 20:02] MED LIST changes: -OMEP20CA10 PO; +OMEP20CA16 PO
--- NOTE | 2020-05-02 20:53 | PHYS DOC ---
Past Medical History Past Medical History: Anemia, Anxiety, Depression, GERD, High Cholesterol Additional Past Medical Histor: COLITIS;ulcer on rectal wall,RECTAL BLEEDING Past Surgical History: Appendectomy, Cholecystectomy, Hysterectomy, Other Additional Past Surgical Histo: HERNIA REPAIR, FISTUAL REPAIR, RECTAL PROLAPSE REPAIR Smoking Status: Former Smoker Alcohol Use: None Drug Use: None General Adult EDM: Chief Complaint: ABDOMINAL PAIN HPI: HPI: Patient is a 49 year [id number] female past medical history ulcerative colitis presents with a chief complaint of abdominal pain rectal pain diarrhea vomiting and bloody stools. Patient states symptoms are consistent with a flareup of her ulcerative colitis. Symptoms ongoing for 1 day progressively becoming worse. Review of Systems: Review of Systems: Constitutional: Denies fever or chills. [] Eyes: Denies change in visual acuity. [] HENT: Denies nasal congestion or sore throat. [] Respiratory: Denies cough or shortness of breath. [] Cardiovascular: Denies chest pain or edema. [] GI: Has abdominal pain positive nausea positive diarrhea positive bloody stools : Denies dysuria. [] Musculoskeletal: Denies back pain or joint pain. [] Integument: Denies rash. [] Neurologic: Denies headache, focal weakness or sensory changes. [] Endocrine: Denies polyuria or polydipsia. [] Lymphatic: Denies swollen glands. [] Psychiatric: Denies depression or anxiety. [] Heart Score: Risk Factors: Risk Factors: DM, Current or recent (<one month) smoker, HTN, HLP, family history of CAD, obesity. Risk Scores: Score 0 - 3: 2.5% MACE over next 6 weeks - Discharge Home Score 4 - 6: 20.3% MACE over next 6 weeks - Admit for Clinical Observation Score 7 - 10: 72.7% MACE over next 6 weeks - Early Invasive Strategies Allergies: Allergies: Allergies Coded Allergies Type Severity Reaction Last Updated Verified cephalexin Allergy Intermediate rash, red ears 08/29/18 Yes ketorolac Allergy Intermediate HIVES 11/22/18 Yes prochlorperazine Allergy Intermediate 11/24/16 Yes Physical Exam: PE: Constitutional: Well developed, well nourished, no acute distress, non-toxic appearance. [] HENT: Normocephalic, atraumatic, bilateral external ears normal, oropharynx moist, no oral exudates, nose normal. [] Eyes: EOMI, conjunctiva normal, no discharge. [] Neck: Normal range of motion, no tenderness, supple, no stridor. [] Cardiovascular:Heart rate regular rhythm, no murmur [] Lungs & Thorax: No respiratory distress Abdomen: Tenderness to palpation diffuse no rebound no guarding Skin: Warm, dry, no erythema, no rash. [] Back: No tenderness, no CVA tenderness. [] Extremities: No tenderness, no cyanosis, no clubbing, ROM intact, no edema. [] Neurologic: Alert and oriented X 3, normal motor function, normal sensory function, no focal deficits noted. [] Psychologic: Affect normal, judgement normal, mood normal. [] Current Patient Data: Vital Signs: Vital Signs Date Time Temp Pulse Resp B/P (MAP) Pulse Ox O2 Delivery O2 Flow Rate FiO2 05/02/20 20:44 98.8 100 20 180/112 (134) Room Air 98.8 EKG: EKG: [] Radiology/Procedures: Radiology/Procedures: [] Course & Med Decision Making: Course & Med Decision Making Pertinent Labs and Imaging studies reviewed. (See chart for details) [] Patient evaluated for chief complaint. Work-up consisted of laboratory analysis. Results reviewed and discussed with patient. Patient requesting pain medications. She was treated with 4 mg of morphine. Patient was also treated with Solu-Medrol 125 mg. Patient discharged home with instructions to follow-up with her primary care physician. Patient was given a prescription of prednisone taper as well as [place]. Charbel Disclaimer: Charbel Disclaimer: This electronic medical record was generated, in whole or in part, using a voice recognition dictation system. Departure Departure Impression: Primary Impression: Abdominal pain Referrals: MAGUE PARRY (PCP) Patient Instructions: Abdominal Pain, Ulcerative Colitis Scripts Prednisone (PREDNISONE) 20 Mg Tablet 1 TAB PO UD for 12 Days, #15 TAB Take 2 tabs days 1,2,3 1.5 tabs days 3,4,5 1 tab days 6,7,8 0.5 tab days 9,10,11 Prov: BARB ROSALES DO 05/02/20 Hydrocodone/Apap 5-325 (NORCO 5-325 TABLET) 1 Each Tablet 1 TAB PO PRN Q6HRS PRN for PAIN for 10 Days, #14 TAB 0 Refills Prov: BARB ROSALES DO 05/02/20 Justicifation of Admission Dx: Justifications for Admission: Justification of Admission Dx: N/A BARB ROSALES I DO May 02, 2020 20:53
[2020-05-02] MEDS ORDERED: MORPHINE SULFATE 2 MG/ML VIAL. IV ONE (21:00)
[2020-05-02] MEDS ORDERED: methylPREDNISolone SOD SUCC PF 125 MG/2 ML VIAL. IV ONE (21:00)
[2020-05-02] MEDS ORDERED: ONDANSETRON PF 4 MG/2 ML VIAL. IVP ONE (21:00)
[2020-05-02 21:04] LABS: BASO # 0.1 x10^3/uL (0.0-0.2); BASO % 1 % (0-3); EOS % 1 % (0-3); HEMATOCRIT 28.5 % (36.0-47.0); HEMOGLOBIN 9.4 g/dL (12.0-15.5); LYMPH # 0.7 x10^3/uL (1.0-4.8); LYMPH % 8 % (24-48); MEAN CORPUSCULAR HEMOGLOBIN 25 pg (25-35); MEAN CORPUSCULAR HGB CONC 33 g/dL (31-37); MEAN CORPUSCULAR VOLUME 76 fL (79-100); MONO # 0.4 x10^3/uL (0.0-1.1); MONO % 5 % (0-9); NEUT % 85 % (31-73); PLATELET COUNT 270 x10^3/uL (140-400); RED BLOOD COUNT 3.73 x10^6/uL (3.50-5.40); WHITE BLOOD COUNT 8.2 x10^3/uL (4.0-11.0)
[2020-05-02 21:11] LABS: CALCIUM 8.8 mg/dL (8.5-10.1); GFR 58.7; POTASSIUM 3.3 mmol/L (3.5-5.1)
[2020-05-02 21:17] LABS: ALBUMIN 3.5 g/dL (3.4-5.0); ALBUMIN/GLOBULIN RATIO 1.1 (1.0-1.7); TOTAL BILIRUBIN 0.2 mg/dL (0.2-1.0); TOTAL PROTEIN 6.8 g/dL (6.4-8.2)
[2020-05-02] MEDS ORDERED: HYDR-3164 PO (21:45)
[2020-05-02] MEDS ORDERED: PRED20TA PO (21:45)
[2020-05-02] MEDS ORDERED: HYDROcodone/APAP 5/325MG 1 TAB TABLET PO ONE (22:00)
[2020-05-02 22:30] VITALS: BP 175/115
== END 2020-05-02 22:42 | disposition home or self-care (01) ==
LOC: ER 20:02
DX: R10.84 Generalized abdominal pain (principal); R19.7 Diarrhea, unspecified; K62.89 Other specified diseases of anus and rectum; R11.2 Nausea with vomiting, unspecified; K21.9 Gastro-esophageal reflux disease without esophagitis; E78.00 Pure hypercholesterolemia, unspecified; Z87.891 Personal history of nicotine dependence; Z90.49 Acquired absence of other specified parts of digestive tract; Z90.89 Acquired absence of other organs; Z90.710 Acquired absence of both cervix and uterus; Z88.1 Allergy status to other antibiotic agents; Z88.6 Allergy status to analgesic agent; Z88.8 Allergy status to other drugs, medicaments and biological substances
CPT/HCPCS: 36415; 80053; 83690; 85025; 96374; 96375; 99285; J2270; J2405; J2930

== ENCOUNTER 2020-05-18 09:34 | Emergency (ER) | payer OTHER ==
[~2020-05-18] VITALS: Ht 162.6 cm; Wt 111.4 kg
[2020-05-18] MEDS ORDERED: IV NORMAL SALINE 1000ML BAG 1,000 ML IV SCH (09:54)
--- NOTE | 2020-05-18 09:59 | PHYS DOC ---
Past Medical History Past Medical History: Anemia, Anxiety, Depression, GERD, High Cholesterol Additional Past Medical Histor: COLITIS;ulcer on rectal wall,RECTAL BLEEDING Past Surgical History: Appendectomy, Cholecystectomy, Hysterectomy, Other Additional Past Surgical Histo: HERNIA REPAIR, FISTUAL REPAIR, RECTAL PROLAPSE REPAIR Smoking Status: Former Smoker Alcohol Use: Occasionally Drug Use: None General Adult EDM: Chief Complaint: ABDOMINAL PAIN HPI: HPI: 49-year-old female with history of ulcerative colitis presents with 1 day of left lower quadrant pain. Onset was yesterday evening without any inciting events. Nothing known makes better or worse. Pain described as sharp, focal to left lower quadrant, and 9/10 severity. Timing of symptoms has been constant since onset. Patient has tried taking previously prescribed [place] use at home x2 5 mg without relief prompting her to seek care at [facility]. Associated symptoms include nausea, x3 episodes of nonbilious nonbloody vomit, and bloody diarrhea. She fears this feels like a previous ulcerative colitis flare Review of Systems: Review of Systems: Constitutional: Denies fever or chills. [] Eyes: Denies change in visual acuity. [] HENT: Denies nasal congestion or sore throat. [] Respiratory: Denies cough or shortness of breath. [] Cardiovascular: Denies chest pain or edema. [] GI: Denies bloody stools. Abdominal pain as reported in HPI [] : Denies dysuria. No vaginal discharge [] Musculoskeletal: Denies back pain or joint pain. [] Integument: Denies rash. [] Neurologic: Denies headache, focal weakness or sensory changes. [] Endocrine: Denies polyuria or polydipsia. [] Lymphatic: Denies swollen glands. [] Psychiatric: Admits history of anxiety and depression [] Heart Score: HEART Score for Chest Pain: HEART Score for Chest Pain Response (Comments) Value History Slighlty/Non-Suspicious 0 ECG Normal 0 Age >45 - < 65 1 Risk Factors >3 Risk Factors or Hx CAD 2 Total 3 Risk Factors: Risk Factors: DM, Current or recent (<one month) smoker, HTN, HLP, family history of CAD, obesity. Risk Scores: Score 0 - 3: 2.5% MACE over next 6 weeks - Discharge Home Score 4 - 6: 20.3% MACE over next 6 weeks - Admit for Clinical Observation Score 7 - 10: 72.7% MACE over next 6 weeks - Early Invasive Strategies Allergies: Allergies: Allergies Coded Allergies Type Severity Reaction Last Updated Verified cephalexin Allergy Intermediate rash, red ears 08/29/18 Yes ketorolac Allergy Intermediate HIVES 11/22/18 Yes prochlorperazine Allergy Intermediate 11/24/16 Yes Physical Exam: PE: Constitutional: Well developed, well nourished, mild distress, non-toxic appeara nce. Appears in pain [] HENT: Normocephalic, atraumatic, bilateral external ears normal, oropharynx moist, no oral exudates, nose normal. [] Eyes: PERRLA, EOMI, conjunctiva normal, no discharge. [] Neck: Normal range of motion, no tenderness, supple, no stridor. [] Cardiovascular:Heart rate regular rhythm, no murmur [] Lungs & Thorax: Bilateral breath sounds clear to auscultation [] Abdomen: Bowel sounds normal, soft, generalized tenderness, voluntary guarding, no rebound, no masses, no pulsatile masses. No peritoneal signs, nonsurgical abdomen [] Skin: Warm, dry, no erythema, no rash. [] Back: No tenderness, no CVA tenderness. [] Extremities: No tenderness, no cyanosis, no clubbing, ROM intact, no edema. [] Neurologic: Alert and oriented X 3, normal motor function, normal sensory function, no focal deficits noted. [] Psychologic: Judgement normal, mood normal. Tearful [] Current Patient Data: Labs: Laboratory Tests Test 05/18/20 10:18 05/18/20 12:48 White Blood Count 6.0 x10^3/uL Red Blood Count 4.00 x10^6/uL Hemoglobin 9.8 g/dL Hematocrit 30.1 % Mean Corpuscular Volume 75 fL Mean Corpuscular Hemoglobin 25 pg Mean Corpuscular Hemoglobin Concent 33 g/dL Red Cell Distribution Width 16.5 % Platelet Count 249 x10^3/uL Neutrophils (%) (Auto) 86 % Lymphocytes (%) (Auto) 7 % Monocytes (%) (Auto) 6 % Eosinophils (%) (Auto) 1 % Basophils (%) (Auto) 1 % Neutrophils # (Auto) 5.2 x10^3/uL Lymphocytes # (Auto) 0.4 x10^3/uL Monocytes # (Auto) 0.3 x10^3/uL Eosinophils # (Auto) 0.1 x10^3/uL Basophils # (Auto) 0.0 x10^3/uL Segmented Neutrophils % 87 % Band Neutrophils % 5 % Lymphocytes % 5 % Monocytes % 3 % Platelet Estimate Adequate Hypochromasia Slight Poikilocytosis Slight Anisocytosis Slight Sodium Level 140 mmol/L Potassium Level 3.8 mmol/L Chloride Level 104 mmol/L Carbon Dioxide Level 25 mmol/L Anion Gap 11 Blood Urea Nitrogen 12 mg/dL Creatinine 1.0 mg/dL Estimated GFR (Cockcroft-Gault) 58.7 BUN/Creatinine Ratio 12 Glucose Level 174 mg/dL Calcium Level 9.0 mg/dL Total Bilirubin 0.3 mg/dL Aspartate Amino Transf (AST/SGOT) 13 U/L Alanine Aminotransferase (ALT/SGPT) 31 U/L Alkaline Phosphatase 87 U/L Troponin I Quantitative < 0.017 ng/mL Total Protein 6.6 g/dL Albumin 3.3 g/dL Albumin/Globulin Ratio 1.0 Lipase 102 U/L Urine Collection Type Unknown Urine Color Yellow Urine Clarity Clear Urine pH 6.0 Urine Specific [place] >=1.030 Urine Protein Negative mg/dL Urine Glucose (UA) 100 mg/dL Urine Ketones (Stick) Negative mg/dL Urine Blood Negative Urine Nitrite Negative Urine Bilirubin Negative Urine Urobilinogen Dipstick 0.2 mg/dL Urine Leukocyte Esterase Negative Urine RBC 0 /HPF Urine WBC 1-4 /HPF Urine Squamous Epithelial Cells Few /LPF Urine Bacteria Few /HPF Urine Mucus Mod /LPF Current Medications Medications (Trade) Dose Ordered Sig/Ga Route PRN Reason Start Time Stop Time Status Last Admin Dose Admin Hydromorphone HCl (Dilaudid) 0.5 mg PRN Q15MIN PRN IV/SQ PAIN GREATER THAN 3/10 05/18/20 10:00 05/18/20 15:03 DC 05/18/20 14:54 Sodium Chloride 1,000 ml @ 1,000 mls/hr Q1H IV 05/18/20 09:54 05/18/20 10:53 DC 05/18/20 10:58 Methylprednisolone Sodium Succinate (SOLU-Medrol 125MG VIAL) 125 mg 1X ONCE IV 05/18/20 10:00 05/18/20 10:08 DC 05/18/20 10:58 Iohexol (Omnipaque 300 Mg/ml) 75 ml 1X ONCE IV 05/18/20 10:45 05/18/20 10:46 DC 05/18/20 11:10 Info (CONTRAST GIVEN -- Rx MONITORING) 1 each PRN DAILY PRN MC SEE COMMENTS 05/18/20 10:45 05/18/20 15:03 DC Sodium Chloride 1,000 ml @ 0 mls/hr 1X ONCE IV 05/18/20 13:15 05/18/20 13:16 DC 05/18/20 13:09 Hydromorphone HCl (Dilaudid) 1 mg 1X ONCE IV 05/18/20 13:15 05/18/20 13:16 DC 05/18/20 13:10 Hydromorphone HCl (Dilaudid) 1 mg 1X ONCE IV 05/18/20 14:45 05/18/20 14:46 DC 05/18/20 15:02 Vital Signs: Vital Signs Date Time Temp Pulse Resp B/P (MAP) Pulse Ox O2 Delivery O2 Flow Rate FiO2 05/18/20 09:51 98.4 140 24 179/109 (132) 100 Room Air 98.4 EKG: EKG: EKG obtained and interpreted by myself at 1006 hrs. as sinus tachycardia at 125 bpm, intervals within normal limits, left axis deviation, no ischemic findings, no STEMI Radiology/Procedures: Radiology/Procedures: PROCEDURE: PORTABLE CHEST 1V EXAM: CHEST 1 VIEW History: Shortness of breath COMPARISON: 10/20/2017 TECHNIQUE: Single portable radiograph of the chest FINDINGS: The cardiac silhouette is unremarkable. The lungs are clear bilaterally. The costophrenic sulci are clear and well demarcated. IMPRESSION: No radiographic evidence of an acute cardiopulmonary process. Electronically signed by: Yogesh Kaur MD (05/18/2020 10:39 AM) [id number] PROCEDURE: CT ABD PELV W/ IV CONTRST ONLY EXAM: Abdomen and pelvis CT with intravenous contrast. HISTORY: Left lower quadrant pain. TECHNIQUE: Computed tomographic images of the abdomen and pelvis were obtained following the administration of intravenous contrast. Multiplanar reformatting was performed. *One or more of the following individualized dose reduction techniques were utilized for this examination: 1. Automated exposure control. 2. Adjustment of the mA and/or kV according to patient size. 3. Use of iterative reconstruction technique. COMPARISON: 06/18/2019. FINDINGS: Evaluation of the lower thorax demonstrates slight atelectasis. There is no infiltrate or suspicious pulmonary nodule. There is no pleural effusion. There is no suspicious hepatic lesion. The gallbladder is surgically absent. The pancreas, spleen, adrenal glands and kidneys are unremarkable. The appendix is surgically absent. There is slight increased colonic wall fat, a finding which can be seen as a sequela of prior inflammation. There is no acute colitis. There are few distal colonic diverticula. There is no diverticulitis. There is no bowel obstruction. There is no lymphadenopathy. The aorta is normal in caliber. There is a tiny fat-containing umbilical hernia and small fat-containing supraumbilical hernia to the right of midline. The supraumbilical hernia sac measures approximately 2.3 cm and there is slight stranding within the herniated fat and ventral peritoneal fat at the level of the hernia, not clearly within limits to suggest fat incarceration. There is no suspicious osseous lesion. IMPRESSION: 1. Few distal colonic diverticula. There is no evidence of diverticulitis or acute colitis. 2. Tiny fat-containing umbilical hernia and small fat-containing supraumbilical hernia. These are fairly stable in appearance. Electronically signed by: Tara Pierce MD (05/18/2020 11:21 AM) [id number] Course & Med Decision Making: Course & Med Decision Making Patient seen and evaluated by myself on ED arrival Patient tachycardic on arrival, comprehensive history and physical exam non- concerning for any emergent need for surgical intervention Pertinent labs and imaging ordered and reviewed IV fluids, steroids and pain medication administered with improvement in patient's symptomology Patient reexamined several times throughout ED stay, remained nonsurgical in nature ED Case reviewed at length with patient. Reviewed findings. Discussed need for continued pain control with previously prescribed outpatient regiment and bowel rest Discussed need to follow-up with PCP and GI specialist in upcoming 2 to 7 days Joint decision to treat current episode as UC flare with 5-day prednisone burst Strict return precautions discussed at length with good understanding demonstrated by patient. Given patient was ambulatory, tolerating p.o., and hemodynamically stable, patient was discharged home Charbel Disclaimer: Charbel Disclaimer: This electronic medical record was generated, in whole or in part, using a voice recognition dictation system. Departure Departure Impression: Primary Impression: Abdominal pain Additional Impressions: Anxiety Sinus tachycardia Disposition: HOME, SELF-CARE Condition: STABLE Referrals: MAGUE PARRY (PCP) Patient Instructions: Abdominal Pain (Nonspecific) Additional Instructions: You have been evaluated in the Emergency Department today for abdominal pain. Your evaluation was not suggestive of any emergent condition requiring medical intervention at this time. However, some abdominal problems make take more time to appear. Therefore, it is important for you to watch for any new symptoms or worsening of your current condition. Please follow up with your primary care physician in upcoming 2 to 7 days. A repeat EKG and consideration for monitoring device should be discussed with primary care physician given your sinus tachycardia noted in the ED. I would also schedule a visit with your GI specialist for continuity of care. Return to the Emergency Department if you experience worsening pain, persistent fevers greater than 100.4, recurrent vomiting, blood in vomit, blood in stool, dark tarry stool, chest pain, difficulty breathing, or any other concerning symptoms. Scripts Prednisone (PREDNISONE) 50 Mg Tablet 1 TAB PO DAILY, #5 TAB Prov: CHETAN ARNOLD DO 05/18/20 Justicifation of Admission Dx: Justifications for Admission: Justification of Admission Dx: N/A CHETAN ARNOLD DO May 18, 2020 09:59
[2020-05-18] MEDS ORDERED: methylPREDNISolone SOD SUCC PF 125 MG/2 ML VIAL. IV ONE (10:00)
[2020-05-18 10:26] LABS: BASO % 1 % (0-3); EOS # 0.1 x10^3/uL (0.0-0.7); EOS % 1 % (0-3); HEMATOCRIT 30.1 % (36.0-47.0); HEMOGLOBIN 9.8 g/dL (12.0-15.5); LYMPH # 0.4 x10^3/uL (1.0-4.8); LYMPH % 7 % (24-48); MEAN CORPUSCULAR HEMOGLOBIN 25 pg (25-35); MEAN CORPUSCULAR HGB CONC 33 g/dL (31-37); MEAN CORPUSCULAR VOLUME 75 fL (79-100); MONO # 0.3 x10^3/uL (0.0-1.1); MONO % 6 % (0-9); NEUT # 5.2 x10^3/uL (1.8-7.7); NEUT % 86 % (31-73); PLATELET COUNT 249 x10^3/uL (140-400); RED CELL DISTRIBUTION WIDTH 16.5 % (11.5-14.5)
[2020-05-18 10:36] LABS: GFR 58.7; POTASSIUM 3.8 mmol/L (3.5-5.1)
[2020-05-18 10:41] LABS: ALBUMIN 3.3 g/dL (3.4-5.0); TOTAL BILIRUBIN 0.3 mg/dL (0.2-1.0); TOTAL PROTEIN 6.6 g/dL (6.4-8.2)
--- NOTE | 2020-05-18 10:42 | RAD ---
EXAM: CHEST 1 VIEW History: Shortness of breath COMPARISON: 10/20/2017 TECHNIQUE: Single portable radiograph of the chest FINDINGS: The cardiac silhouette is unremarkable. The lungs are clear bilaterally. The costophrenic sulci are clear and well demarcated. IMPRESSION: No radiographic evidence of an acute cardiopulmonary process. Electronically signed by: Yogesh Kaur MD (05/18/2020 10:39 AM) [id number]
[2020-05-18] MEDS ORDERED: CONTRAST GIVEN. MC PRN (10:45)
[2020-05-18] MEDS ORDERED: IOHEXOL 300 MG/ML 100ML VIAL. IV ONE (10:45)
[2020-05-18] MEDS: HYDROmorphone 2 MG/ML VIAL IV/SQ PRN ×3 (10:59→14:54)
--- NOTE | 2020-05-18 11:24 | RAD ---
EXAM: Abdomen and pelvis CT with intravenous contrast. HISTORY: Left lower quadrant pain. TECHNIQUE: Computed tomographic images of the abdomen and pelvis were obtained following the administration of intravenous contrast. Multiplanar reformatting was performed. *One or more of the following individualized dose reduction techniques were utilized for this examination: 1. Automated exposure control. 2. Adjustment of the mA and/or kV according to patient size. 3. Use of iterative reconstruction technique. COMPARISON: 06/18/2019. FINDINGS: Evaluation of the lower thorax demonstrates slight atelectasis. There is no infiltrate or suspicious pulmonary nodule. There is no pleural effusion. There is no suspicious hepatic lesion. The gallbladder is surgically absent. The pancreas, spleen, adrenal glands and kidneys are unremarkable. The appendix is surgically absent. There is slight increased colonic wall fat, a finding which can be seen as a sequela of prior inflammation. There is no acute colitis. There are few distal colonic diverticula. There is no diverticulitis. There is no bowel obstruction. There is no lymphadenopathy. The aorta is normal in caliber. There is a tiny fat-containing umbilical hernia and small fat-containing supraumbilical hernia to the right of midline. The supraumbilical hernia sac measures approximately 2.3 cm and there is slight stranding within the herniated fat and ventral peritoneal fat at the level of the hernia, not clearly within limits to suggest fat incarceration. There is no suspicious osseous lesion. IMPRESSION: 1. Few distal colonic diverticula. There is no evidence of diverticulitis or acute colitis. 2. Tiny fat-containing umbilical hernia and small fat-containing supraumbilical hernia. These are fairly stable in appearance. Electronically signed by: Tara Pierce MD (05/18/2020 11:21 AM) [id number]
[2020-05-18 11:53] LABS: % BANDS 5 % (0-9); % LYMPHS 5 % (24-48); % MONOS 3 % (0-10); % SEGS 87 % (35-66)
[2020-05-18 11:54] LABS: PLT ESTIMATE ADEQUATE (ADEQUATE)
[2020-05-18 11:56] LABS: HYPOCHROMIA SLIGHT
[2020-05-18 11:57] LABS: ANISOCYTOSIS SLIGHT; POIKILOCYTOSIS SLIGHT
[2020-05-18 13:04] LABS: BILIRUBIN,URINE NEGATIVE (NEG); CLARITY,URINE CLEAR; COLOR,URINE YELLOW; NITRITE,URINE NEGATIVE (NEG); PROTEIN,URINE NEGATIVE (NEG-TRACE); UROBILINOGEN,URINE 0.2 mg/dL (0.2 mg/dL)
[2020-05-18 13:11] LABS: SQUAMOUS EPITHELIAL CELL,UR FEW /LPF
[2020-05-18 13:13] LABS: BACTERIA,URINE FEW /HPF (0-FEW); RBC,URINE 0 /HPF (0-2)
[2020-05-18] MEDS ORDERED: IV NORMAL SALINE 1000ML BAG 1,000 ML IV ONE (13:15)
[2020-05-18] MEDS ORDERED: HYDROmorphone 2 MG/ML VIAL IV ONE ×2 (13:15→14:45)
[2020-05-18] MEDS ORDERED: PRED50TA PO (14:43)
[2020-05-18 14:44] VITALS: BP 158/87
--- NOTE | 2020-05-21 08:38 | EKG ---
[facility] [address] [place] [address] Test Date: 2020-05-18 Test Time: 09:54:19 Pat Name: HIPOLITO NELSON Department: Room: Gender: F Slinger Sequins: : 1970 Requested By: CHETAN ARNOLD Order Number: [id number] Reading MD: Measurements Intervals [place] Rate: 125 P: 41 TX: 162 QRS: -28 QRSD: 86 T: 26 QT: 296 QTc: 429 Interpretive Statements SINUS TACHYCARDIA LEFTWARD AXIS S1,S2,S3 PATTERN QRS(T) CONTOUR ABNORMALITY CONSIDER ANTEROSEPTAL MYOCARDIAL DAMAGE POSSIBLY ABNORMAL ECG RI6.01 No previous ECG available for comparison
== END 2020-05-18 15:03 | disposition home or self-care (01) ==
LOC: ER 09:34
DX: R10.32 Left lower quadrant pain (principal); F41.9 Anxiety disorder, unspecified; R00.0 Tachycardia, unspecified; R11.2 Nausea with vomiting, unspecified; R19.7 Diarrhea, unspecified; R06.02 Shortness of breath; K57.30 Diverticulosis of large intestine without perforation or abscess without bleeding; K42.9 Umbilical hernia without obstruction or gangrene; K21.9 Gastro-esophageal reflux disease without esophagitis; E78.00 Pure hypercholesterolemia, unspecified; F32.9 Major depressive disorder, single episode, unspecified; Z90.710 Acquired absence of both cervix and uterus; Z90.89 Acquired absence of other organs; Z90.49 Acquired absence of other specified parts of digestive tract; Z87.891 Personal history of nicotine dependence; Z88.1 Allergy status to other antibiotic agents; Z88.6 Allergy status to analgesic agent; Z88.8 Allergy status to other drugs, medicaments and biological substances
CPT/HCPCS: 36415; 71045; 74177; 80053; 81001; 83690; 84484; 85007; 85025; 93005; 96361; 96374; 96375; 96376; 99285; J1170; J2930; J7030; Q9967

== ENCOUNTER 2020-05-19 18:22 | Emergency (ER) | payer OTHER ==
[~2020-05-19] VITALS: Ht 167.6 cm; Wt 90.9 kg
[~2020-05-19 18:22] MED LIST changes: +PRED50TA PO
[2020-05-19 18:37] VITALS: BP 184/88
--- NOTE | 2020-05-19 18:46 | PHYS DOC ---
Past Medical History Past Medical History: Anemia, Anxiety, Depression, GERD, High Cholesterol Additional Past Medical Histor: COLITIS;ulcer on rectal wall,RECTAL BLEEDING Past Surgical History: Appendectomy, Cholecystectomy, Hysterectomy, Other Additional Past Surgical Histo: HERNIA REPAIR, FISTUAL REPAIR, RECTAL PROLAPSE REPAIR Smoking Status: Former Smoker Alcohol Use: Occasionally Drug Use: None General Adult EDM: Chief Complaint: ABDOMINAL PAIN HPI: HPI: Patient is a 49 year old who presents emergency department with abdominal pain diarrhea and vomiting. Patient states she had been seen here yesterday. She had a CT scan and labs and her work-up was negative. She was diagnosed with a possible ulcerative colitis flare and prescribed prednisone. She states is been taking the prednisone but her symptoms have persisted. She states she has been vomiting and having diarrhea today and has not been able to eat. She states she has severe pain in her left lower quadrant. She is well-known to this emergency department and has been seen multiple times in the past for pain medicine she states she had a low-grade fever of 100.0. Review of Systems: Review of Systems: Constitutional: Denies fever or chills. [] Eyes: Denies change in visual acuity. [] HENT: Denies nasal congestion or sore throat. [] Respiratory: Denies cough or shortness of breath. [] Cardiovascular: Denies chest pain or edema. [] GI: Denies abdominal pain, nausea, vomiting, bloody stools or diarrhea. [] : Denies dysuria. [] Musculoskeletal: Denies back pain or joint pain. [] Integument: Denies rash. [] Neurologic: Denies headache, focal weakness or sensory changes. [] Endocrine: Denies polyuria or polydipsia. [] Lymphatic: Denies swollen glands. [] Psychiatric: Denies depression or anxiety. [] Heart Score: Risk Factors: Risk Factors: DM, Current or recent (<one month) smoker, HTN, HLP, family history of CAD, obesity. Risk Scores: Score 0 - 3: 2.5% MACE over next 6 weeks - Discharge Home Score 4 - 6: 20.3% MACE over next 6 weeks - Admit for Clinical Observation Score 7 - 10: 72.7% MACE over next 6 weeks - Early Invasive Strategies Allergies: Allergies: Allergies Coded Allergies Type Severity Reaction Last Updated Verified cephalexin Allergy Intermediate rash, red ears 08/29/18 Yes ketorolac Allergy Intermediate HIVES 11/22/18 Yes prochlorperazine Allergy Intermediate 11/24/16 Yes Physical Exam: PE: Constitutional: Well developed, well nourished, no acute distress, non-toxic appearance. [] HENT: Normocephalic, atraumatic, bilateral external ears normal, oropharynx moist, no oral exudates, nose normal. [] Eyes: PERRLA, EOMI, conjunctiva normal, no discharge. [] Neck: Normal range of motion, no tenderness, supple, no stridor. [] Cardiovascular: Sinus tachycardia. Lungs & Thorax: Bilateral breath sounds clear to auscultation [] Abdomen: Diffuse abdominal tenderness in the abdomen. No rebound or guarding. Skin: Warm, dry, no erythema, no rash. [] Back: No tenderness, no CVA tenderness. [] Extremities: No tenderness, no cyanosis, no clubbing, ROM intact, no edema. [] Neurologic: Alert and oriented X 3, normal motor function, normal sensory function, no focal deficits noted. [] Psychologic: Affect normal, judgement normal, mood normal. [] EKG: EKG: [] Radiology/Procedures: Radiology/Procedures: [] Course & Med Decision Making: Course & Med Decision Making Pertinent Labs and Imaging studies reviewed. (See chart for details) Patient with a history of narcotic dependence so I will hold on any narcotics currently. However she is tachycardic and despite having full work-up yesterday we will need to recheck her labs based on her chief complaint of diarrhea and vomiting. I also would like to give her IV fluids. I offered her IM bentyl for the pain. 1842 I was alerted by the nurse that the patient got dressed and left the ER prior to being able to be worked up were discharged. Charbel Disclaimer: Charbel Disclaimer: This electronic medical record was generated, in whole or in part, using a voice recognition dictation system. Departure Departure Disposition: AGAINST MEDICAL ADVICE Condition: STABLE Referrals: MAGUE PARRY (PCP) Justicifation of Admission Dx: Justifications for Admission: Justification of Admission Dx: N/A CHETAN CONRAD DO May 19, 2020 18:46
== END 2020-05-19 18:52 | disposition left against medical advice (07) ==
LOC: ER 18:22
DX: R10.32 Left lower quadrant pain (principal); R11.2 Nausea with vomiting, unspecified; R19.7 Diarrhea, unspecified; F41.9 Anxiety disorder, unspecified; F32.9 Major depressive disorder, single episode, unspecified; K21.9 Gastro-esophageal reflux disease without esophagitis; E78.00 Pure hypercholesterolemia, unspecified; Z90.49 Acquired absence of other specified parts of digestive tract; Z90.710 Acquired absence of both cervix and uterus; Z90.89 Acquired absence of other organs; Z87.891 Personal history of nicotine dependence; Z88.1 Allergy status to other antibiotic agents; Z88.6 Allergy status to analgesic agent; Z88.8 Allergy status to other drugs, medicaments and biological substances
CPT/HCPCS: 99281

== ENCOUNTER 2020-06-05 19:12 | Emergency (ER) | payer OTHER ==
[~2020-06-05] VITALS: Ht 162.6 cm; Wt 120.0 kg
[2020-06-05] MEDS ORDERED: CIPR500T94 PO (20:52)
[2020-06-05] MEDS ORDERED: ONDA4TAB12 PO (20:52)
[2020-06-05] MEDS ORDERED: METR500T PO (20:52)
--- NOTE | 2020-06-05 20:52 | PHYS DOC ---
Past Medical History Past Medical History: Anemia, Anxiety, Depression, Diverticulitis, GERD, High Cholesterol Additional Past Medical Histor: COLITIS;ulcer on rectal wall,RECTAL BLEEDING Past Surgical History: Appendectomy, Cholecystectomy, Hysterectomy, Other Additional Past Surgical Histo: HERNIA REPAIR, FISTUAL REPAIR, RECTAL PROLAPSE REPAIR Smoking Status: Current Some Day Smoker Alcohol Use: Occasionally Drug Use: None General Adult EDM: Chief Complaint: ABDOMINAL PAIN HPI: HPI: 49-year-old female with past medical history of chronic abdominal pain presents with report of worsening left lower quadrant abdominal pain with associated naus ea, vomiting, and diarrhea since 0600 this morning. Patient denies any fever or chills. Denies known sick contact. Patient was recently seen in the emergency department on 05/18/[address] imaging that noted diverticulosis without signs of diverticulitis. Patient has had multiple CT images and has been seen multiple times for abdominal pain in the recent past. Patient reports she has a endoscopy set up for 06/13/2020 with her GI specialist. Patient reports she took hydrocodone at home without improvement. Also reports she took some Levsin prior to arrival. Review of Systems: Review of Systems: Constitutional: Denies fever or chills Eyes: Denies redness or eye pain HENT: Denies nasal congestion or sore throat Respiratory: Denies cough or shortness of breath Cardiovascular: Denies chest pain or palpitations GI: Reports abdominal pain, nausea, vomiting, and diarrhea : Denies dysuria or hematuria Musculoskeletal: Denies back pain or joint pain Integument: Denies rash or skin lesions Neurologic: Denies headache, focal weakness or sensory changes Complete systems were reviewed and found to be within normal limits, except as documented in this note. Allergies: Allergies: Allergies Coded Allergies Type Severity Reaction Last Updated Verified cephalexin Allergy Intermediate rash, red ears 08/29/18 Yes ketorolac Allergy Intermediate HIVES 11/22/18 Yes prochlorperazine Allergy Intermediate 11/24/16 Yes Physical Exam: PE: Constitutional: Well developed, well nourished, no acute distress, non-toxic appearance HENT: Normocephalic, atraumatic Eyes: Conjunctiva normal, no discharge Neck: Normal range of motion, supple Lungs & Thorax: No respiratory distress, equal chest rise and fall Abdomen: Soft, left lower quadrant tenderness, no guarding/rebound tenderness Skin: Warm, dry, no erythema, no rash Back: No tenderness, no CVA tenderness Extremities: No tenderness, ROM intact, no edema Neurologic: Alert and oriented X 3, no focal deficits noted Psychologic: Affect normal, judgment normal Current Patient Data: Vital Signs: Vital Signs Date Time Temp Pulse Resp B/P (MAP) Pulse Ox O2 Delivery O2 Flow Rate FiO2 06/05/20 20:07 98.5 104 17 132/101 (111) 100 Room Air 98.5 EKG: EKG: [] Radiology/Procedures: Radiology/Procedures: [] Course & Med Decision Making: Course & Med Decision Making Patient presents with acute on chronic left lower quadrant abdominal pain with associated nausea and vomiting. History of multiple work-ups in the past. Most recent evaluation was on 05/18/2020 at which time she underwent laboratory and radiological studies. Labs without acute process at that time. CT imaging noted diverticulosis without signs of diverticulitis. Patient without peritoneal signs however left lower quadrant tender to palpation. Discussed chronicity with patient who reports she has upcoming endoscopy. Decision to treat empirically for possible diverticulitis. Pain and nausea addressed. Empiric antibiotics initiated. Patient stable for discharge with outpatient follow-up with PCP/GI. Discussed findings and plan with patient, who acknowledges understanding and agreement. Charbel Disclaimer: Charbel Disclaimer: This electronic medical record was generated, in whole or in part, using a voice recognition dictation system. Departure Departure Impression: Primary Impression: Chronic abdominal pain Additional Impression: Hx of diverticulitis of colon Disposition: HOME, SELF-CARE Condition: STABLE Referrals: NO PCP (PCP) DAKSHA LEA MD Patient Instructions: Abdominal Pain (Nonspecific), Chronic Pain, Diverticulitis, [id number] Scripts Metronidazole (FLAGYL) 500 Mg Tablet 500 MG PO TID for 7 Days, #21 TAB Prov: MAUGE HICKS DO 06/05/20 Ciprofloxacin Hcl (CIPRO) 500 Mg Tablet 1 TAB PO BID for 7 Days, #14 TAB 0 Refills Prov: MAGUE HICKS DO 06/05/20 Ondansetron (ONDANSETRON ODT) 4 Mg Tab.rapdis 1 TAB PO PRN Q6-8HRS PRN for NAUSEA, #16 TAB Prov: MAGUE HICKS DO 06/05/20 Justicifation of Admission Dx: Justifications for Admission: Justification of Admission Dx: N/A MAGUE HICKS DO Jun 05, 2020 20:52
[2020-06-05 21:05] VITALS: BP 137/96
[2020-06-05] MEDS ORDERED: fentaNYL PF VIAL 100 MCG/2 ML VIAL IM ONE (21:30)
[2020-06-05] MEDS ORDERED: CIPROFLOXACIN HCL 250 MG TABLET. PO ONE (21:30)
[2020-06-05] MEDS ORDERED: metroNIDAZOLE 500 MG TABLET PO ONE (21:30)
[2020-06-05] MEDS ORDERED: ONDANSETRON ODT 4 MG TAB.RAPDIS. PO ONE (21:30)
== END 2020-06-05 21:10 | disposition home or self-care (01) ==
LOC: ER 19:12
DX: G89.29 Other chronic pain (principal); R10.32 Left lower quadrant pain; R11.2 Nausea with vomiting, unspecified; R19.7 Diarrhea, unspecified; K21.9 Gastro-esophageal reflux disease without esophagitis; E78.00 Pure hypercholesterolemia, unspecified; F32.9 Major depressive disorder, single episode, unspecified; F41.9 Anxiety disorder, unspecified; F17.200 Nicotine dependence, unspecified, uncomplicated; Z90.49 Acquired absence of other specified parts of digestive tract; Z90.89 Acquired absence of other organs; Z90.710 Acquired absence of both cervix and uterus; Z87.19 Personal history of other diseases of the digestive system; Z98.890 Other specified postprocedural states; Z88.1 Allergy status to other antibiotic agents; Z88.6 Allergy status to analgesic agent; Z88.8 Allergy status to other drugs, medicaments and biological substances
CPT/HCPCS: 96372; 99284; J3010

== ENCOUNTER 2020-06-13 19:11 | Emergency (ER) | payer OTHER ==
[~2020-06-13] VITALS: Ht 162.6 cm; Wt 111.3 kg
[~2020-06-13 19:11] MED LIST changes: +CIPR500T94 PO
[2020-06-13] MEDS ORDERED: IV NORMAL SALINE 1000ML BAG 1,000 ML IV ONE (20:30)
[2020-06-13] MEDS ORDERED: ONDANSETRON PF 4 MG/2 ML VIAL. IV ONE (21:00)
[2020-06-13] MEDS ORDERED: fentaNYL PF VIAL 100 MCG/2 ML VIAL IV ONE (21:15)
--- NOTE | 2020-06-13 21:43 | PHYS DOC ---
Past Medical History Past Medical History: Anemia, Anxiety, Depression, Diverticulitis, GERD, High Cholesterol Additional Past Medical Histor: COLITIS;ulcer on rectal wall,RECTAL BLEEDING Past Surgical History: Appendectomy, Cholecystectomy, Hysterectomy, Other Additional Past Surgical Histo: HERNIA REPAIR, FISTUAL REPAIR, RECTAL PROLAPSE REPAIR Smoking Status: Current Some Day Smoker Alcohol Use: Occasionally Drug Use: None General Adult EDM: Chief Complaint: NAUSEA/VOMITING/DIARRHA HPI: HPI: Patient is a 49 year old female who presents to the emergency department with complaints of lower left quadrant abdominal pain, nausea, vomiting, and diarrhea that began at 4:00 this morning. She states that her abdominal pain began 3 days ago. She has a colonoscopy scheduled for next Wednesday. Patient states she has had at least 13 or 14 episodes of diarrhea today and 5 or 6 episodes of vomiting. She denies any blood in her stool or vomit. Patient reports that started taking metformin for her diabetes 2 weeks ago. She denies any dysuria, hematuria, back pain, increased urinary frequency, fever, cough, shortness of breath, chest pain, or palpitations. She denies any excessive thirst or polyuria. She currently rates the discomfort in the lower left quadrant a 10 out of 10 on the pain scale, she denies any alleviating or exacerbating factors, the pain does not radiate. Patient reports history of colitis and diverticulitis. Review of Systems: Review of Systems: Constitutional: Denies fever or chills. [] HENT: Denies nasal congestion or sore throat. [] Respiratory: Denies cough or shortness of breath. [] Cardiovascular: Denies chest pain or edema. [] GI: See HPI : Denies dysuria. [] Musculoskeletal: Denies back pain or joint pain. [] Integument: Denies rash. [] Neurologic: Denies headache, focal weakness or sensory changes. [] Endocrine: Denies polyuria or polydipsia. [] Lymphatic: Denies swollen glands. [] Psychiatric: Denies depression or anxiety. [] Heart Score: Risk Factors: Risk Factors: DM, Current or recent (<one month) smoker, HTN, HLP, family history of CAD, obesity. Risk Scores: Score 0 - 3: 2.5% MACE over next 6 weeks - Discharge Home Score 4 - 6: 20.3% MACE over next 6 weeks - Admit for Clinical Observation Score 7 - 10: 72.7% MACE over next 6 weeks - Early Invasive Strategies Current Medications: Current Medications Medications (Trade) Dose Ordered Sig/[facility] Start Time Stop Time Status Last Admin Dose Admin Fentanyl Citrate (Fentanyl 2ml Vial) 50 mcg 1X ONCE 06/13/20 21:15 06/13/20 21:16 DC Ondansetron HCl (Zofran) 4 mg 1X ONCE 06/13/20 21:00 06/13/20 21:01 DC Sodium Chloride 1,000 ml @ 1,000 mls/hr 1X ONCE 06/13/20 20:30 06/13/20 21:29 DC Allergies: Allergies: Allergies Coded Allergies Type Severity Reaction Last Updated Verified cephalexin Allergy Intermediate rash, red ears 08/29/18 Yes ketorolac Allergy Intermediate HIVES 11/22/18 Yes prochlorperazine Allergy Intermediate 11/24/16 Yes Physical Exam: PE: Constitutional: Well developed, well nourished, no acute distress, non-toxic appearance. [] HENT: Normocephalic, atraumatic, bilateral external ears normal, dry mucous membranes noted, dry lips,, nose normal. [] Eyes: PERRLA, EOMI, conjunctiva normal, no discharge. [] Neck: Normal range of motion, no stridor. [] Cardiovascular:Heart rate regular tachycardic rhythm, no murmur [] Lungs & Thorax: Bilateral breath sounds clear to auscultation, Respirations even and unlabored, no retractions, no respiratory distress [] Abdomen: Bowel sounds normal, soft, lower left quadrant tenderness to palpation, no rebound tenderness, no guarding, no masses, no pulsatile masses. [] Skin: Warm, dry, no erythema, no rash. [] Back: No tenderness Extremities: No cyanosis, ROM intact, no edema. [] Neurologic: Alert and oriented X 3, no focal deficits noted. [] Psychologic: Affect normal, judgement normal, mood normal. [] EKG: EKG: [] Radiology/Procedures: Radiology/Procedures: PROCEDURE: CT ABD PELV W/ IV CONTRST ONLY CT scan of the abdomen and pelvis with contrast 06/13/2020 CLINICAL HISTORY: Left lower quadrant abdominal pain. Diarrhea. TECHNIQUE: After the intravenous administration of 75 cc of Omnipaque 300, contiguous, 5 mm axial sections were obtained through the abdomen and pelvis. One or more of the following individualized dose reduction techniques were utilized for this study: 1. Automated exposure control. 2. Adjustment of the mA and/or kV according to patient size. 3. Use of iterative reconstruction technique. FINDINGS: Comparison study is dated 05/18/2020 . Images through the lung bases demonstrate minimal dependent subsegmental atelectasis bilaterally. The liver parenchyma has a decreased attenuation consistent with fatty infiltration. The spleen, pancreas, adrenal glands and kidneys are within normal limits. Atherosclerotic calcification of the abdominal aorta is seen. The abdominal aorta tapers normally. Surgical clips are seen within the gallbladder fossa consistent with a cholecystectomy. Air and stool are seen throughout the colon. The patient appears to be post appendectomy. Images through the pelvis demonstrate the urinary bladder distended with urine. Scattered diverticula are seen involving the sigmoid colon. No inflammatory changes are seen in the adjacent fat. No free fluid is noted. The osseous structures are unchanged. IMPRESSION: No acute abnormality is seen.[] Course & Med Decision Making: Course & Med Decision Making Pertinent Labs and Imaging studies reviewed. (See chart for details) 49-year-old female well-known to the emergency department presents with lower left quadrant abdominal pain, nausea, vomiting, and diarrhea. CBC revealed a hemoglobin of 8.8, patient historically has problems with anemia, no other acute findings; CMP reveals elevated BUN/creatinine ratio 23, glucose 161, magnesium of 1.7 otherwise unremarkable; UA reveals 20-40 white blood cells however patient denies any urinary symptoms, [address] abdomen pelvis with IV contrast is negative for any acute findings. Patient was given 1 L of normal saline, 4 mg of Zofran, and 50 mcg of fentanyl in the emergency department. She reported feeling better after these medications however upon discharge when I advised the patient in no acute findings she requested 1 more dose of fentanyl. Advised patient that 1 more dose of fentanyl would be given in the emergency department she needs to continue taking her hydrocodone as prescribed for pain and follow-up with her primary care doctor. Prescription sent to her pharmacy for Zofran to take as needed for nausea. Recommended clear liquid diet for 24 hours then advance as tolerated starting with bland foods. Patient verbalized an understanding of home care, medications, follow-up, and return to ED instructions and was in agreement with the plan of care. [] Dragon Disclaimer: Dragon Disclaimer: This electronic medical record was generated, in whole or in part, using a voice recognition dictation system. Departure Departure Impression: Primary Impression: Abdominal pain Qualified Codes: R10.32 - Left lower quadrant pain Additional Impressions: Nausea & vomiting Qualified Codes: R11.2 - Nausea with vomiting, unspecified Diarrhea Qualified Codes: R19.7 - Diarrhea, unspecified Disposition: 01 HOME, SELF-CARE Condition: STABLE Referrals: UNKNOWN PCP NAME (PCP) Patient Instructions: Abdominal Pain (Nonspecific), Diarrhea, [id number], Nausea and Vomiting, [id number] Additional Instructions: Fill prescriptions and use them as directed. Recommend clear fluids for the next 24 hours. Then you may advance to bland foods such as bananas, rice, applesauce, and dry toast. Follow-up with your primary care doctor in the next 1-2 days. Return to the emergency room if your symptoms worsen. Scripts Ondansetron Hcl (ONDANSETRON HCL) 4 Mg Tablet 1 TAB PO PRN Q6HRS PRN for NAUSEA/VOMITING for 3 Days, #10 TAB 0 Refills Prov: MARLY BANUELOS APRN 06/13/20 Justicifation of Admission Dx: Justifications for Admission: Justification of Admission Dx: N/A MARLY BANUELOS APRN Jun 13, 2020 21:43
[2020-06-13 21:47] LABS: BASO # 0.1 x10^3/uL (0.0-0.2); BASO % 1 % (0-3); EOS % 0 % (0-3); HEMATOCRIT 27.7 % (36.0-47.0); HEMOGLOBIN 8.8 g/dL (12.0-15.5); LYMPH # 0.5 x10^3/uL (1.0-4.8); LYMPH % 7 % (24-48); MEAN CORPUSCULAR HEMOGLOBIN 24 pg (25-35); MEAN CORPUSCULAR HGB CONC 32 g/dL (31-37); MEAN CORPUSCULAR VOLUME 76 fL (79-100); MONO # 0.5 x10^3/uL (0.0-1.1); MONO % 6 % (0-9); NEUT # 6.7 x10^3/uL (1.8-7.7); NEUT % 86 % (31-73); PLATELET COUNT 316 x10^3/uL (140-400); RED BLOOD COUNT 3.64 x10^6/uL (3.50-5.40); RED CELL DISTRIBUTION WIDTH 18.4 % (11.5-14.5); WHITE BLOOD COUNT 7.8 x10^3/uL (4.0-11.0)
[2020-06-13 21:55] LABS: CALCIUM 9.5 mg/dL (8.5-10.1); CREATININE 0.8 mg/dL (0.6-1.0); GFR 75.9; POTASSIUM 3.7 mmol/L (3.5-5.1)
[2020-06-13 22:01] LABS: ALBUMIN 3.1 g/dL (3.4-5.0); ALBUMIN/GLOBULIN RATIO 0.9 (1.0-1.7); MAGNESIUM 1.7 mg/dL (1.8-2.4); TOTAL BILIRUBIN 0.2 mg/dL (0.2-1.0); TOTAL PROTEIN 6.7 g/dL (6.4-8.2)
[2020-06-13 22:10] LABS: BILIRUBIN,URINE NEGATIVE (NEG); CLARITY,URINE CLEAR; COLOR,URINE YELLOW; NITRITE,URINE NEGATIVE (NEG); PROTEIN,URINE NEGATIVE (NEG-TRACE); UROBILINOGEN,URINE 0.2 mg/dL (0.2 mg/dL)
[2020-06-13 22:11] LABS: % BANDS 2 % (0-9); % LYMPHS 6 % (24-48); % MONOS 2 % (0-10); % SEGS 90 % (35-66)
[2020-06-13 22:13] LABS: ANISOCYTOSIS SLIGHT; HYPOCHROMIA MOD; MICROCYTOSIS SLIGHT; OVALOCYTES FEW; PLT ESTIMATE ADEQUATE (ADEQUATE); POLYCHROMASIA SLIGHT; TEAR DROP CELLS FEW
[2020-06-13 22:24] LABS: HYALINE CASTS, URINE FEW /HPF; SQUAMOUS EPITHELIAL CELL,UR FEW /LPF
[2020-06-13 22:25] LABS: BACTERIA,URINE 0 /HPF (0-FEW); RBC,URINE OCC /HPF (0-2); WBC,URINE 20-40 /HPF (0-4)
[2020-06-13] MEDS ORDERED: CONTRAST GIVEN. MC PRN (22:30)
[2020-06-13] MEDS ORDERED: IOHEXOL 300 MG/ML 100ML VIAL. IV ONE (22:30)
--- NOTE | 2020-06-13 22:59 | RAD ---
CT scan of the abdomen and pelvis with contrast 06/13/2020 CLINICAL HISTORY: Left lower quadrant abdominal pain. Diarrhea. TECHNIQUE: After the intravenous administration of 75 cc of Omnipaque 300, contiguous, 5 mm axial sections were obtained through the abdomen and pelvis. One or more of the following individualized dose reduction techniques were utilized for this study: 1. Automated exposure control. 2. Adjustment of the mA and/or kV according to patient size. 3. Use of iterative reconstruction technique. FINDINGS: Comparison study is dated 05/18/2020 . Images through the lung bases demonstrate minimal dependent subsegmental atelectasis bilaterally. The liver parenchyma has a decreased attenuation consistent with fatty infiltration. The spleen, pancreas, adrenal glands and kidneys are within normal limits. Atherosclerotic calcification of the abdominal aorta is seen. The abdominal aorta tapers normally. Surgical clips are seen within the gallbladder fossa consistent with a cholecystectomy. Air and stool are seen throughout the colon. The patient appears to be post appendectomy. Images through the pelvis demonstrate the urinary bladder distended with urine. Scattered diverticula are seen involving the sigmoid colon. No inflammatory changes are seen in the adjacent fat. No free fluid is noted. The osseous structures are unchanged. IMPRESSION: No acute abnormality is seen. Electronically signed by: Mik Robert MD (06/13/2020 10:56 PM) [id number]
[2020-06-13] MEDS ORDERED: ONDA-84 PO (23:06)
[2020-06-14 00:12] VITALS: BP 195/100
[2020-06-14] MEDS ORDERED: fentaNYL PF VIAL 100 MCG/2 ML VIAL IV ONE (00:15)
== END 2020-06-14 00:15 | disposition home or self-care (01) ==
LOC: ER 19:11
DX: R10.32 Left lower quadrant pain (principal); R11.2 Nausea with vomiting, unspecified; R19.7 Diarrhea, unspecified; F41.9 Anxiety disorder, unspecified; F32.9 Major depressive disorder, single episode, unspecified; K21.9 Gastro-esophageal reflux disease without esophagitis; E78.00 Pure hypercholesterolemia, unspecified; Z90.49 Acquired absence of other specified parts of digestive tract; Z90.89 Acquired absence of other organs; Z90.710 Acquired absence of both cervix and uterus; Z87.891 Personal history of nicotine dependence; Z88.6 Allergy status to analgesic agent; Z88.8 Allergy status to other drugs, medicaments and biological substances
CPT/HCPCS: 36415; 74177; 80053; 81001; 83690; 83735; 85007; 85025; 87086; 96361; 96374; 96375; 96376; 99285; J2405; J3010; J7030; Q9967

== ENCOUNTER 2020-06-21 19:15 | Emergency (ER) | payer OTHER ==
[~2020-06-21] VITALS: Ht 162.6 cm; Wt 110.5 kg
[~2020-06-21 19:15] MED LIST changes: +ONDA-84 PO
[2020-06-21 20:36] VITALS: BP 169/110
--- NOTE | 2020-06-21 21:37 | PHYS DOC ---
Past Medical History Past Medical History: Anxiety, Diabetes-Type II Additional Past Medical Histor: ULCERATIVE COLITIS Past Surgical History: Hysterectomy Additional Past Surgical Histo: HERNIA REPAIR, FISTUAL REPAIR, RECTAL PROLAPSE REPAIR Smoking Status: Former Smoker Additional Information: quit December 2017 Alcohol Use: Rarely Drug Use: None General Adult EDM: Chief Complaint: ABDOMINAL PAIN HPI: HPI: The history was obtained from the patient. Patient is a 49-year-old female with PMH cholecystectomy, appendectomy, hysterectomy who presents with a chief complaint of left lower quadrant abdominal discomfort. Patient states she has had pain for the past several days. States was gradual in onset. States it is sharp and nonradiating. She states she has had loose stool with blood streaks in the stool. She states she is had this multiple times. She states she did have a colonoscopy scheduled this month but had to move it back until June 27. She is unsure of if she has had diverticulitis in the past. Denies urinary symptoms. Notes multiple episodes of nonbloody nonbilious emesis. Denies fevers. Denies syncope. Denies vaginal bleeding or discharge. States she has tried Zofran at home with minimal relief. No other complaints. Review of Systems: Review of Systems: Constitutional: Denies fever or chills. [] Eyes: Denies change in visual acuity. [] HENT: Denies nasal congestion or sore throat. [] Respiratory: Denies cough or shortness of breath. [] Cardiovascular: Denies chest pain or edema. [] GI: Positive for abdominal pain and nausea. : Denies dysuria. [] Musculoskeletal: Denies back pain or joint pain. [] Integument: Denies rash. [] Neurologic: Denies headache, focal weakness or sensory changes. [] Endocrine: Denies polyuria or polydipsia. [] Lymphatic: Denies swollen glands. [] Psychiatric: Denies depression or anxiety. [] Heart Score: Risk Factors: Risk Factors: DM, Current or recent (<one month) smoker, HTN, HLP, family history of CAD, obesity. Risk Scores: Score 0 - 3: 2.5% MACE over next 6 weeks - Discharge Home Score 4 - 6: 20.3% MACE over next 6 weeks - Admit for Clinical Observation Score 7 - 10: 72.7% MACE over next 6 weeks - Early Invasive Strategies Current Medications: Current Medications Medications (Trade) Dose Ordered Sig/Ga Start Time Stop Time Status Last Admin Dose Admin Metoclopramide HCl (Reglan Vial) 10 mg 1X ONCE 06/21/20 22:00 06/21/20 22:01 Ringer's Solution 1,000 ml @ 1,000 mls/hr 1X ONCE 06/21/20 22:00 06/21/20 22:59 Allergies: Allergies: Allergies Coded Allergies Type Severity Reaction Last Updated Verified cephalexin Allergy Intermediate rash, red ears 08/29/18 Yes ketorolac Allergy Intermediate HIVES 11/22/18 Yes prochlorperazine Allergy Intermediate 11/24/16 Yes Physical Exam: PE: Constitutional: Well developed, well nourished, no acute distress, non-toxic appearance. [] HENT: Normocephalic, atraumatic, bilateral external ears normal, oropharynx moist, no oral exudates, nose normal. [] Eyes: PERRLA, EOMI, conjunctiva normal, no discharge. [] Neck: Normal range of motion, no tenderness, supple, no stridor. [] Cardiovascular:Heart rate regular rhythm, no murmur [] Lungs & Thorax: Bilateral breath sounds clear to auscultation [] Abdomen: Soft, nontender, nonacute abdomen. No involuntary guarding or rigidity noted. No acute peritonitis. Skin: Warm, dry, no erythema, no rash. [] Back: No tenderness, no CVA tenderness. [] Extremities: No tenderness, no cyanosis, no clubbing, ROM intact, no edema. [] Neurologic: Alert and oriented X 3, normal motor function, normal sensory function, no focal deficits noted. [] Psychologic: Affect normal, judgement normal, mood normal. [] Current Patient Data: Vital Signs: Vital Signs Date Time Temp Pulse Resp B/P (MAP) Pulse Ox O2 Delivery O2 Flow Rate FiO2 06/21/20 20:36 98.5 95 18 169/110 (129) 98 Room Air 98.5 EKG: EKG: [] Radiology/Procedures: Radiology/Procedures: [] Course & Med Decision Making: Course & Med Decision Making Pertinent Labs and Imaging studies reviewed. (See chart for details) Patient is a well-appearing 49-year-old female presents with chief complaint of acute on chronic left lower quadrant abdominal pain. Initial vital signs unremarkable. Exam reassuring and noted above. Extensive chart review was performed. Patient has been seen multiple times for similar complaints. In fact patient was seen at outside ER 1 hour prior to arrival where she did receive medication. Labs at that time are reassuring. Given she has had mul tiple CAT scans recently I did feel it is reasonable to defer CAT scan imaging today. Her abdominal exam is benign. Prior to laboratory analysis returning the patient did elope from the emergency department. Dragon Disclaimer: Dragsandy Disclaimer: This electronic medical record was generated, in whole or in part, using a voice recognition dictation system. Departure Departure Impression: Primary Impression: Left lower quadrant pain Additional Impression: Nausea & vomiting Qualified Codes: R11.2 - Nausea with vomiting, unspecified Disposition: 07 AGAINST MEDICAL ADVICE Condition: STABLE Referrals: UNKNOWN PCP NAME (PCP) Justicifation of Admission Dx: Justifications for Admission: Justification of Admission Dx: N/A MARYBEL MARQUEZ DO Jun 21, 2020 21:37
[2020-06-21] MEDS ORDERED: METOCLOPRAMIDE HCL 10 MG/2 ML VIAL. IVP ONE (22:00)
[2020-06-21] MEDS ORDERED: IV RINGERS,LACTATED 1000ML 1,000 ML IV ONE (22:00)
== END 2020-06-21 21:57 ==
LOC: ER 19:15
DX: R10.32 Left lower quadrant pain (principal); R11.2 Nausea with vomiting, unspecified; R19.7 Diarrhea, unspecified; F41.9 Anxiety disorder, unspecified; E11.9 Type 2 diabetes mellitus without complications; Z90.710 Acquired absence of both cervix and uterus; Z98.890 Other specified postprocedural states; Z87.891 Personal history of nicotine dependence; Z88.6 Allergy status to analgesic agent; Z88.8 Allergy status to other drugs, medicaments and biological substances
CPT/HCPCS: 99281

== ENCOUNTER 2020-07-03 17:07 | Inpatient (IN) | payer OTHER ==
[~2020-07-03] VITALS: Ht 162.6 cm; Wt 118.9 kg
[2020-07-03] MEDS ORDERED: IV NORMAL SALINE 1000ML BAG 1,000 ML IV SCH (17:12)
[2020-07-03] MEDS ORDERED: ONDANSETRON PF 4 MG/2 ML VIAL. IVP ONE (17:15)
[2020-07-03] MEDS ORDERED: fentaNYL PF VIAL 100 MCG/2 ML VIAL IVP ONE ×2 (17:30→19:00)
[2020-07-03 17:37] LABS: FECAL OB PT NEGATIVE (NEG)
--- NOTE | 2020-07-03 17:38 | PHYS DOC ---
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 She states that this sharp cramping abdominal pain with diarrhea and vomiting started this morning at 02:00. She states that last week she saw her GI doctor who increased her sulfasalazine medication to 4000 mg a day. She states that she has not seen blood in her vomit but she has seen some blood in her diarrhea today once. She states she also gets iron infusions every 3 months. She has bruising all over her arms and on her abdomen. She rates her pain a 10 out of 10. Upon arrival to the emergency room she did have a diarrhea stool that is sent off for fecal occult stool. Patient denies chest pain, shortness of breath, cough, fever, dysuria symptoms, dizziness, headache, vision changes, numbness or tingling or focal weakness. Patient is here often for the same symptoms. She has been here 6 or 7 times since May 02 with the last time being June 21. Patient has a history of drug-seeking behavior, ulcerative colitis, hysterectomy, diverticulosis, colitis, rectal bleeding, UTI, bacterial vaginosis, diabetes. (CARLI HARTLEY SHIP ENGINES OPERATING ENGINEER) Review of Systems: Review of Systems: Constitutional: Denies fever or chills. [] Eyes: Denies change in visual acuity. [] HENT: Denies nasal congestion or sore throat. [] Respiratory: Denies cough or shortness of breath. [] Cardiovascular: Denies chest pain or edema. [] GI: Positive for abdominal pain, nausea, vomiting, bloody stools or diarrhea. [] : Denies dysuria. [] Musculoskeletal: Denies back pain or joint pain. [] Integument: Denies rash. [] Neurologic: Denies headache, focal weakness or sensory changes. [] Endocrine: Denies polyuria or polydipsia. [] Lymphatic: Denies swollen glands. [] Psychiatric: Denies depression or anxiety. [] (CARLI HARTLEY APRN) Heart Score: Risk Factors: Risk Factors: DM, Current or recent (<one month) smoker, HTN, HLP, family history of CAD, obesity. Risk Scores: Score 0 - 3: 2.5% MACE over next 6 weeks - Discharge Home Score 4 - 6: 20.3% MACE over next 6 weeks - Admit for Clinical Observation Score 7 - 10: 72.7% MACE over next 6 weeks - Early Invasive Strategies (CARLI HARTLEY APRN) Current Medications: Current Medications Medications (Trade) Dose Ordered Sig/Ga Start Time Stop Time Status Last Admin Dose Admin Fentanyl Citrate (Fentanyl 2ml Vial) 50 mcg 1X ONCE 07/03/20 17:30 07/03/20 17:31 Ondansetron HCl (Zofran) 4 mg 1X ONCE 07/03/20 17:15 07/03/20 17:17 DC Sodium Chloride 1,000 ml @ 1,000 mls/hr Q1H 07/03/20 17:12 07/03/20 18:11 (CARLI HARTLEY APRN) Allergies: Allergies: Allergies Coded Allergies Type Severity Reaction Last Updated Verified cephalexin Allergy Intermediate rash, red ears 08/29/18 Yes ketorolac Allergy Intermediate HIVES 11/22/18 Yes prochlorperazine Allergy Intermediate 11/24/16 Yes (CARLI HARTLEY APRN) Physical Exam: PE: Constitutional: Well developed, well nourished, no acute distress, non-toxic appearance. [] HENT: Normocephalic, atraumatic, bilateral external ears normal, oropharynx moist, no oral exudates, nose normal. [] Eyes: PERRLA, EOMI, conjunctiva normal, no discharge. [] Neck: Normal range of motion, no tenderness, supple, no stridor. [] Cardiovascular:Heart rate regular rhythm, no murmur [] Lungs & Thorax: Bilateral breath sounds clear to auscultation [] Abdomen: Bowel sounds normal, soft, generalized tenderness, no masses, no pulsatile masses. [] Skin: Warm, dry, no erythema, no rash. Bruising on her arms and on her abdomen. [] Back: No tenderness, no CVA tenderness. [] Extremities: No tenderness, no cyanosis, no clubbing, ROM intact, lower 2+ nonpitting edema. [] Neurologic: Alert and oriented X 3, normal motor function, normal sensory function, no focal deficits noted. [] Psychologic: Affect normal, judgement normal, mood normal. [] (CARLI HARTLEY APRN) EKG: EK and read by Dr. Pond as sinus rhythm and no STEMI. [] (CARLI HARTLEY APRN) Radiology/Procedures: Radiology/Procedures: [] Impression: [facility] [address] [place] [address] IMAGING REPORT Signed PATIENT: HIPOLITO NELSON ACCOUNT: [id number] : 1970 LOCATION: ER AGE: 50 SEX: F EXAM STATUS: REG ER ORD. PHYSICIAN: CARLI HARTLEY APRN REASON: RECTAL BLEEDING, DIARRHEA PROCEDURE: CT ABD PELV W/ IV CONTRST ONLY EXAM: CT Abdomen and Pelvis with IV contrast CLINICAL HISTORY: RECTAL BLEEDING, DIARRHEA COMPARISON: none TECHNIQUE: Helical CT of the abdomen and pelvis was performed following the administration of IV contrast. Axial, coronal and sagittal reformatted images were generated. ---PQRS compliance statement - One or more of the following individualized dose reduction techniques were utilized for this study: 1. Automated exposure control 2. Adjustment of the mA and/or kV according to patient size 3. Use of iterative reconstruction technique--- FINDINGS: Lower chest: Linear opacities lower lobes and lingula likely scarring/atelectasis. Groundglass opacities dependently represent atypical infectious/odontoid process or atelectasis. Aortic root calcifications are seen. Abdomen and pelvis: Liver and biliary system: Hepatic hypoattenuation likely fatty liver. Cholecystectomy clips are seen. No biliary duct dilatation. Spleen: Unremarkable Pancreas: Unremarkable Adrenal glands: Unremarkable Kidneys: Symmetric nephrograms. No focal renal lesion. No hydronephrosis. No hydroureter. Bladder is unremarkable. Lymph nodes/retroperitoneum: No abdominal or pelvic lymphadenopathy. Vessels: Aortic calcifications are seen. Bowel/Peritoneal cavity: Moderate colonic stool content is seen. Appendectomy changes are seen. No small or large bowel dilatation. No bowel obstruction. A few colonic diverticula are seen. Mild eccentric thickening of the rectum, less than clinical significance. No abdominal or pelvic ascites. Abdominal wall: Trace fat-containing periumbilical hernia. Bladder: Unremarkable Bones: Marked sclerosis and callus formation in the region of the right ischial tuberosity. IMPRESSION: 1. Mild thickening of the rectum can be correlated with clinical examination and colonoscopy for possible underlying infectious/inflammatory process or malignancy. 2. A few colonic diverticula are seen. No evidence for acute diverticulitis. No bowel obstruction. 3. Marked sclerosis and callus formation in the region of the right ischial tuberosity. This may represent healing insufficiency fracture although primary osseous lesion is not excluded. This can be correlated with patient's symptoms and if further imaging is clinically indicated, MRI may provide additional details. 4. Groundglass opacities dependently represent atypical infectious/odontoid process or atelectasis 5. Hepatic hypoattenuation, likely fatty liver. Electronically signed by: Damion Mendoza MD (07/03/2020 7:06 PM) SALLY DICTATED and SIGNED BY: DAMION MENDOZA MD DATE: 07/03/20 190 [facility] [address] [place] [address] IMAGING REPORT Signed PATIENT: HIPOLITO NELSON ACCOUNT: [id number] : 1970 LOCATION: ER AGE: 50 SEX: F EXAM STATUS: REG ER ORD. PHYSICIAN: CARLI HARTLEY APRN REASON: ground glass opacities on CT. PROCEDURE: PORTABLE CHEST 1V EXAM: AP View of the chest DATE: 07/03/2020 7:34 PM INDICATION: Reason: ground glass opacities on CT. COMPARISON: CT abdomen 07/03/2020 FINDINGS: The heart is not enlarged. Mediastinal and hilar contours are normal. Minimal patchy opacities right greater than left lung base. No pleural effusion or pneumothorax. IMPRESSION: Minimal patchy opacities right greater than left lung base, nonspecific but may represent atypical infectious or inflammatory process, better assessed on prior CT. Electronically signed by: Damion Mendoza MD (07/03/2020 8:11 PM) SALLY DICTATED and SIGNED BY: DAMION MENDOZA MD DATE: 07/03/202010 (CARLI HARTLEY APRN) Course & Med Decision Making: Course & Med Decision Making Pertinent Labs and Imaging studies reviewed. (See chart for details) COVID-19 CRITERIA: The patient was evaluated during the global COVID-19 pandemic, and that diagnosis was suspected/considered upon their initial presentation. Their evaluation, treatment and testing was consistent with current guidelines for patients who present with complaints or symptoms that may be related to COVID-19. Alert and oriented x4. Ambulatory with a steady gait. Skin pink warm and dry. Abdomen is soft but tender throughout. 2+ lower extremity edema bilaterally. She is hypertensive but she is also in pain and is asymptomatic. Patient is managed for intractable abdominal pain. CT findings also show groundglass opacity. I will go ahead and test her for COVID and do a stat COVID in case they wanted do a colonoscopy on her. I have spoken to Dr Neely about this patient for admission. I have spoken to Dr Montaño concerning this patient and the care plan and he states the patient does not need antibiotics at this time. [] (CARLI HARTLEY APRN) Course & Med Decision Making I have reviewed the PA/HARNESS INSPECTOR's note and Plan of Care. I was available for consultation as needed during the patient's visit in the emergency department. I agree with the clinical impression, plans and disposition. (DAKSHA POND MD) Charbel Disclaimer: Charbel Disclaimer: This electronic medical record was generated, in whole or in part, using a voice recognition dictation system. (CARLI HARTLEY APRN) COVID-19 Patient Risks: Age 65 or older: No Sign of co-morbidity: Yes Exp to person + for COVID: No Exp to PUI: No Travel from affected area: No Lower respiratory symptoms: No Fever: No Other: Yes (DIARRHEA) (CARLI HARTLEY APRN) Departure Departure Impression: Primary Impression: Person under investigation for COVID-19 Additional Impression: Intractable abdominal pain Disposition: ADMITTED INPATIENT Admitting Physician: DAVID (CARLI HARTLEY APRN) Condition: STABLE Referrals: UNKNOWN PCP NAME (PCP) Justicifation of Admission Dx: Justifications for Admission: Justification of Admission Dx: Yes Comments: INTRACTABLE ABDOMINAL PAIN (CARLI HARTLEY APRN) CARLI HARTLEY APRN Jul 03, 2020 17:38 DAKSHA POND MD Jul 04, 2020 06:36
[2020-07-03 18:08] LABS: BASO % 1 % (0-3); EOS # 0.1 x10^3/uL (0.0-0.7); EOS % 2 % (0-3); HEMATOCRIT 30.8 % (36.0-47.0); LYMPH # 0.5 x10^3/uL (1.0-4.8); LYMPH % 10 % (24-48); MEAN CORPUSCULAR HEMOGLOBIN 27 pg (25-35); MEAN CORPUSCULAR HGB CONC 33 g/dL (31-37); MEAN CORPUSCULAR VOLUME 82 fL (79-100); MONO # 0.4 x10^3/uL (0.0-1.1); MONO % 9 % (0-9); NEUT # 3.5 x10^3/uL (1.8-7.7); NEUT % 78 % (31-73); PLATELET COUNT 244 x10^3/uL (140-400); RED BLOOD COUNT 3.75 x10^6/uL (3.50-5.40); RED CELL DISTRIBUTION WIDTH 22.8 % (11.5-14.5); WHITE BLOOD COUNT 4.5 x10^3/uL (4.0-11.0)
[2020-07-03 18:15] LABS: PROTHROMBIN TIME PATIENT 12.1 SEC (11.7-14.0)
[2020-07-03 18:17] LABS: CALCIUM 8.9 mg/dL (8.5-10.1); CREATININE 0.6 mg/dL (0.6-1.0); GFR 105.4; POTASSIUM 3.4 mmol/L (3.5-5.1)
[2020-07-03 18:23] LABS: ALBUMIN 3.4 g/dL (3.4-5.0); ALBUMIN/GLOBULIN RATIO 1.1 (1.0-1.7); TOTAL BILIRUBIN 0.2 mg/dL (0.2-1.0); TOTAL PROTEIN 6.6 g/dL (6.4-8.2)
[2020-07-03] MEDS ORDERED: IOHEXOL 300 MG/ML 100ML VIAL. IV ONE (18:30)
[2020-07-03] MEDS ORDERED: CONTRAST GIVEN. MC PRN (18:45)
[2020-07-03 18:58] LABS: BILIRUBIN,URINE NEGATIVE (NEG); CLARITY,URINE CLEAR; COLOR,URINE YELLOW; NITRITE,URINE NEGATIVE (NEG); PH,URINE 6.5 (<5.0-8.0); PROTEIN,URINE NEGATIVE (NEG-TRACE); UROBILINOGEN,URINE 0.2 mg/dL (0.2 mg/dL)
[2020-07-03 19:03] LABS: BARBITURATES NEG (NEG); BENZODIAZEPINES POS (NEG); CANNABINOIDS POS (NEG); COCAINE NEG (NEG); METHADONE NEG (NEG); OPIATES NEG (NEG); PHENCYCLIDINE NEG (NEG)
[2020-07-03 19:05] LABS: AMPHETAMINE/METHAMPHETAMINE NEG (NEG)
[2020-07-03 19:09] LABS: BACTERIA,URINE FEW /HPF (0-FEW); RBC,URINE 0 /HPF (0-2); SQUAMOUS EPITHELIAL CELL,UR FEW /LPF; WBC,URINE RARE /HPF (0-4)
--- NOTE | 2020-07-03 19:09 | RAD ---
EXAM: CT Abdomen and Pelvis with IV contrast CLINICAL HISTORY: RECTAL BLEEDING, DIARRHEA COMPARISON: none TECHNIQUE: Helical CT of the abdomen and pelvis was performed following the administration of IV contrast. Axial, coronal and sagittal reformatted images were generated. ---PQRS compliance statement - One or more of the following individualized dose reduction techniques were utilized for this study: 1. Automated exposure control 2. Adjustment of the mA and/or kV according to patient size 3. Use of iterative reconstruction technique--- FINDINGS: Lower chest: Linear opacities lower lobes and lingula likely scarring/atelectasis. Groundglass opacities dependently represent atypical infectious/odontoid process or atelectasis. Aortic root calcifications are seen. Abdomen and pelvis: Liver and biliary system: Hepatic hypoattenuation likely fatty liver. Cholecystectomy clips are seen. No biliary duct dilatation. Spleen: Unremarkable Pancreas: Unremarkable Adrenal glands: Unremarkable Kidneys: Symmetric nephrograms. No focal renal lesion. No hydronephrosis. No hydroureter. Bladder is unremarkable. Lymph nodes/retroperitoneum: No abdominal or pelvic lymphadenopathy. Vessels: Aortic calcifications are seen. Bowel/Peritoneal cavity: Moderate colonic stool content is seen. Appendectomy changes are seen. No small or large bowel dilatation. No bowel obstruction. A few colonic diverticula are seen. Mild eccentric thickening of the rectum, less than clinical significance. No abdominal or pelvic ascites. Abdominal wall: Trace fat-containing periumbilical hernia. Bladder: Unremarkable Bones: Marked sclerosis and callus formation in the region of the right ischial tuberosity. IMPRESSION: 1. Mild thickening of the rectum can be correlated with clinical examination and colonoscopy for possible underlying infectious/inflammatory process or malignancy. 2. A few colonic diverticula are seen. No evidence for acute diverticulitis. No bowel obstruction. 3. Marked sclerosis and callus formation in the region of the right ischial tuberosity. This may represent healing insufficiency fracture although primary osseous lesion is not excluded. This can be correlated with patient's symptoms and if further imaging is clinically indicated, MRI may provide additional details. 4. Groundglass opacities dependently represent atypical infectious/odontoid process or atelectasis 5. Hepatic hypoattenuation, likely fatty liver. Electronically signed by: Damion Nowak MD (07/03/2020 7:06 PM) [facility]
[2020-07-03 19:18] LABS: PLT ESTIMATE ADEQUATE (ADEQUATE)
[2020-07-03 19:19] LABS: ANISOCYTOSIS MOD; POLYCHROMASIA SLIGHT
[2020-07-03] MEDS ORDERED: ONDANSETRON PF 4 MG/2 ML VIAL. IV PRN (19:45)
--- NOTE | 2020-07-03 20:14 | RAD ---
EXAM: AP View of the chest DATE: 07/03/2020 7:34 PM INDICATION: Reason: ground glass opacities on CT. COMPARISON: CT abdomen 07/03/2020 FINDINGS: The heart is not enlarged. Mediastinal and hilar contours are normal. Minimal patchy opacities right greater than left lung base. No pleural effusion or pneumothorax. IMPRESSION: Minimal patchy opacities right greater than left lung base, nonspecific but may represent atypical infectious or inflammatory process, better assessed on prior CT. Electronically signed by: Damion Nowak MD (07/03/2020 8:11 PM) SALLY
[2020-07-03] MEDS: IV NORMAL SALINE 1000ML BAG 1,000 ML IV SCH (20:22)
[2020-07-03] MEDS: fentaNYL PF VIAL 100 MCG/2 ML VIAL IV PRN ×2 (20:23→23:54)
[2020-07-03 22:45] VITALS: BP 187/117
--- NOTE | 2020-07-03 23:45 | NUR ---
Admit to [facility] room [address] [facility]. A/O x 4. Ambulate from rlaurys station to bed in room with steady gait. C/O abd pain rated 7/10 described as sharp on arrival. Orientated to room and call light. Reviewed POC to include isolation for pending covid testing, NPO for abd pain and possible pending procedures such as colonoscopy and pain management. Verbalized understanding. Resting in bed with call light at hand.
[2020-07-04] VITALS (7 sets, daily range): BP systolic 145–196; BP diastolic 88–119
[2020-07-04] MEDS ORDERED: HYDROcodone/APAP 5/325MG 1 TAB TABLET PO PRN (00:15)
[2020-07-04] MEDS ORDERED: TRAZ-123 PO (00:17)
[2020-07-04] MEDS ORDERED: ONDANSETRON ODT 4 MG TAB.RAPDIS. PO PRN (00:30)
--- NOTE | 2020-07-04 00:30 | NUR ---
Reviewed home medication list with patient. Informed patient Fentanyl was ordered PRN for abd pain. Patient explains "fentanyl never helps my pain, I need Dilaudid". Obtained orders from Dr Neely for home medications and Dilaudid PRN.
[2020-07-04] MEDS: HYDROmorphone 2 MG/ML VIAL IVP PRN ×6 (00:58→23:52)
[2020-07-04] MEDS: IV NORMAL SALINE 1000ML BAG 1,000 ML IV SCH ×2 (04:16→16:18)
[2020-07-04] MEDS: hydrALAZINE 20 MG/ML VIAL. IVP PRN ×3 (04:38→20:34)
--- NOTE | 2020-07-04 06:20 | NUR ---
BP was 187/107 with HR 80. Gave Hydralazine 10mg IVP as ordered prn for hypertension. BP now 145/88 with HR 107. Patient in bed sleeping. Call light at hand.
--- NOTE | 2020-07-04 07:19 | PDOC1 ---
History and Physical Date of Admission Date of Admission DATE: 07/04/20 TIME: 07:19 Identification/Chief Complaint Chief Complaint SEEN IN ER WITH Suspected acute colitis 50 year old female who presented with chronic abdominal pain. //sharp cramping abdominal pain with diarrhea and vomiting started at 02:00. llq abd pain , blood in stool last week saw her GI doctor who increased her sulfasalazine medication to 4000 mg a day. she has seen some blood in her diarrhea today once. notes bruising all over her arms and on her abdomen. In ER, diarrhea stool that is sent off for fecal occult stool. denies chest pain, shortness of breath, cough, fever, dysuria symptoms, dizzi ness, headache, vision changes, numbness or tingling or focal weakness. NEEDS dpoa covid neg 07/04 vo Past Medical History Past Medical History Past Medical History: Anxiety, Diabetes-Type II Additional Past Medical Histor: ULCERATIVE COLITIS Past Surgical History: Hysterectomy Additional Past Surgical Histo: HERNIA REPAIR, FISTUAL REPAIR, RECTAL PROLAPSE REPAIR Smoking Status: Former Smoker Alcohol Use: Rarely Drug Use: None past medical history of obesity,gastroesophageal reflux disease, chronic rectal ulcers, anemia, anxiety and report of narcotic abuses in the past. fhx obesity Cardiovascular: No pertinent hx Pulmonary: No pertinent hx GI: GERD, Hemorrhoids, Irritable bowel disease Heme/Onc: No pertinent hx Hepatobiliary: No pertinent hx Psych: Anxiety Rheumatologic: No pertinent hx Infectious disease: No pertinent hx Renal/: No pertinent hx Endocrine: No pertinent hx Past Surgical History Past Surgical History: Appendectomy, Cholecystectomy, , Hysterectomy, Other Family History Family History: Depression, High Cholestrol Family History: Parent Social History Smoke: No ALCOHOL: none Drugs: None, Other Current Problem List Problem List Problems Medical Problems: (1) Intractable abdominal pain Status: Acute (2) Person under investigation for COVID-19 Status: Acute Current Medications Current Medications Current Medications Sodium Chloride 1,000 ml @ 1,000 mls/hr Q1H IV Last administered on 07/03/20at 17:52; Start 07/03/20 at 17:12; Stop 07/03/20 at 18:11; Status DC Ondansetron HCl (Zofran) 4 mg 1X ONCE IVP Last administered on 07/03/20at 17:53; Start 07/03/20 at 17:15; Stop 07/03/20 at 17:17; Status DC Fentanyl Citrate (Fentanyl 2ml Vial) 50 mcg 1X ONCE IVP Last administered on 07/03/20at 17:53; Start 07/03/20 at 17:30; Stop 07/03/20 at 17:31; Status DC Iohexol (Omnipaque 300 Mg/ml) 75 ml 1X ONCE IV Last administered on 07/03/20at 18:34; Start 07/03/20 at 18:30; Stop 07/03/20 at 18:31; Status DC Info (CONTRAST GIVEN -- Rx MONITORING) 1 each PRN DAILY PRN MC SEE COMMENTS; Start 07/03/20 at 18:45; Stop 07/05/20 at 18:44 Fentanyl Citrate (Fentanyl 2ml Vial) 50 mcg 1X ONCE IVP Last administered on 07/03/20at 19:15; Start 07/03/20 at 19:00; Stop 07/03/20 at 19:01; Status DC Ondansetron HCl (Zofran) 4 mg PRN Q8HRS PRN IV NAUSEA/VOMITING; Start 07/03/20 at 19:45; Stop 07/04/20 at 19:44 Fentanyl Citrate (Fentanyl 2ml Vial) 50 mcg PRN Q1HR PRN IV PAIN Last administered on 07/03/20at 23:54; Start 07/03/20 at 19:45; Stop 07/04/20 at 19:44 Sodium Chloride 1,000 ml @ 100 mls/hr Q10H IV Last administered on 07/04/20at 04:16; Start 07/03/20 at 19:35; Stop 07/04/20 at 19:34 Acetaminophen/ Hydrocodone Bitart (Lortab 5/325) 1 tab PRN Q6HRS PRN PO MODERATE PAIN 4-6; Start 07/04/20 at 00:15 Simvastatin (Zocor) 40 mg QHS PO ; Start 07/04/20 at 21:00 Trazodone HCl (Desyrel) 100 mg HS PO ; Start 07/04/20 at 21:00 Duloxetine HCl (Cymbalta) 120 mg DAILY PO ; Start 07/04/20 at 09:00 Pantoprazole Sodium (Protonix) 40 mg DAILYAC PO ; Start 07/04/20 at 07:30 Ondansetron HCl (Zofran Odt) 4 mg PRN Q8HRS PRN PO NAUSEA/VOMITING 1ST CHOICE; Start 07/04/20 at 00:30 Alprazolam (Xanax) 0.25 mg PRN Q8HRS PRN PO ANXIETY / AGITATION; Start 07/04/20 at 00:30 Hydromorphone HCl (Dilaudid) 0.5 mg PRN Q3HRS PRN IVP SEVERE PAIN 7-10 Last administered on 07/04/20at 04:15; Start 07/04/20 at 00:30 Hydralazine HCl (Apresoline Inj) 10 mg PRN Q4HRS PRN IVP ELEVATED BP, SEE COMMENTS Last administered on 07/04/20at 04:38; Start 07/04/20 at 00:30 Active Scripts Active [place] 5-325 Tablet (Acetaminophen/Hydrocodone Bitart) 1 Each Tablet 1 Tab PO PRN Q6HRS PRN 10 Days Zofran (Ondansetron Hcl) 4 Mg Tablet 1 Tab PO Q8HRS PRN Reported Trazodone Hcl 100 Mg Tablet 100 Mg PO HS Xanax Xr (Alprazolam) 1 Mg Tab.er.24h 2 Mg PO DAILY Cymbalta (Duloxetine Hcl) 60 Mg Capsule.dr 120 Mg PO DAILY Zocor (Simvastatin) 5 Mg Tablet 40 Mg PO DAILY Prevacid 24HR (Lansoprazole) 15 Mg Capsule.dr 30 Mg PO DAILY Allergies Allergies: Coded Allergies: cephalexin (Verified Allergy, Intermediate, rash, red ears, 08/29/18) ketorolac (Verified Allergy, Intermediate, HIVES, 11/22/18) prochlorperazine (Verified Allergy, Intermediate, 11/24/16) ROS Review of System Review of Systems: Review of Systems: Constitutional: Denies fever or chills. [] Eyes: Denies change in visual acuity. [] HENT: Denies nasal congestion or sore throat. [] Respiratory: Denies cough or shortness of breath. [] Cardiovascular: Denies chest pain or edema. [] GI: Positive for abdominal pain, nausea, vomiting, bloody stools , diarrhea. [] : Denies dysuria. [] Musculoskeletal: Denies back pain or joint pain. [] Integument: Denies rash. [] Neurologic: Denies headache, focal weakness or sensory changes. [] Endocrine: Denies polyuria or polydipsia. [] Lymphatic: Denies swollen glands. [] Psychiatric: Denies depression or anxiety. [] 14 PT ROS OTHERWISE NEG Gastrointestinal: Yes Abdominal Pain, Yes Diarrhea Physical Exam Physical Exam Constitutional: Well developed, well nourished, no acute distress, non-toxic appearance. [] HENT: Normocephalic, atraumatic, bilateral external ears normal, oropharynx moist, no oral exudates, nose normal. [] Eyes: PERRLA, EOMI, conjunctiva normal, no discharge. [] Neck: Normal range of motion, no tenderness, supple, no stridor. [] Cardiovascular:Heart rate regular rhythm, no murmur [] Lungs & Thorax: Bilateral breath sounds clear to auscultation [] Abdomen: Bowel sounds normal, soft, generalized tenderness, no masses, no pulsatile masses. [] Skin: Warm, dry, no erythema, no rash. Bruising on her arms and on her abdomen. [] Back: No tenderness, no CVA tenderness. [] Extremities: No tenderness, no cyanosis, no clubbing, ROM intact, lower 2+ nonpitting edema. [] Neurologic: Alert and oriented X 3, normal motor function, normal sensory function, no focal deficits noted. [] Psychologic: Affect normal, judgement normal, mood normal. [] General: Alert, Oriented X3, Cooperative HEENT: Atraumatic, EOMI, Mucous membr. moist/pink Lungs: Clear to auscultation, Normal air movement Heart: RRR Breasts: Not examined Rectal Exam: not examined PELVIC: Examination not indicated Extremities: No cyanosis Neuro: Normal speech, Cranial nerves 3-12 NL Psych/Mental Status: Mental status NL, Mood NL Vitals Vitals Vital Signs Date Time Temp Pulse Resp B/P (MAP) Pulse Ox O2 Delivery O2 Flow Rate FiO2 07/04/20 06:19 107 18 145/88 (107) 96 Room Air 07/04/20 03:00 98.7 98.7 Labs Labs Laboratory Tests Test 07/03/20 17:20 07/03/20 17:45 07/03/20 18:40 07/03/20 20:17 Stool Occult Blood Negative (NEG) White Blood Count 4.5 x10^3/uL (4.0-11.0) Red Blood Count 3.75 x10^6/uL (3.50-5.40) Hemoglobin 10.0 g/dL (12.0-15.5) Hematocrit 30.8 % (36.0-47.0) Mean Corpuscular Volume 82 fL (79-100) Mean Corpuscular Hemoglobin 27 pg (25-35) Mean Corpuscular Hemoglobin Concent 33 g/dL (31-37) Red Cell Distribution Width 22.8 % (11.5-14.5) Platelet Count 244 x10^3/uL (140-400) Neutrophils (%) (Auto) 78 % (31-73) Lymphocytes (%) (Auto) 10 % (24-48) Monocytes (%) (Auto) 9 % (0-9) Eosinophils (%) (Auto) 2 % (0-3) Basophils (%) (Auto) 1 % (0-3) Neutrophils # (Auto) 3.5 x10^3/uL (1.8-7.7) Lymphocytes # (Auto) 0.5 x10^3/uL (1.0-4.8) Monocytes # (Auto) 0.4 x10^3/uL (0.0-1.1) Eosinophils # (Auto) 0.1 x10^3/uL (0.0-0.7) Basophils # (Auto) 0.0 x10^3/uL (0.0-0.2) Platelet Estimate Adequate (ADEQUATE) Polychromasia Slight Anisocytosis Mod Prothrombin Time 12.1 SEC (11.7-14.0) Prothromb Time International Ratio 0.9 (0.8-1.1) Sodium Level 143 mmol/L (136-145) Potassium Level 3.4 mmol/L (3.5-5.1) Chloride Level 105 mmol/L (98-107) Carbon Dioxide Level 29 mmol/L (21-32) Anion Gap 9 (6-14) Blood Urea Nitrogen 8 mg/dL (7-20) Creatinine 0.6 mg/dL (0.6-1.0) Estimated GFR (Cockcroft-Gault) 105.4 BUN/Creatinine Ratio 13 (6-20) Glucose Level 135 mg/dL (70-99) Calcium Level 8.9 mg/dL (8.5-10.1) Total Bilirubin 0.2 mg/dL (0.2-1.0) Aspartate Amino Transf (AST/SGOT) 14 U/L (15-37) Alanine Aminotransferase (ALT/SGPT) 31 U/L (14-59) Alkaline Phosphatase 90 U/L (46-116) Troponin I Quantitative < 0.017 ng/mL (0.000-0.055) Total Protein 6.6 g/dL (6.4-8.2) Albumin 3.4 g/dL (3.4-5.0) Albumin/Globulin Ratio 1.1 (1.0-1.7) Lipase 149 U/L (73-393) Urine Collection Type Void Urine Color Yellow Urine Clarity Clear Urine pH 6.5 (<5.0-8.0) Urine Specific Collison 1.020 (1.000-1.030) Urine Protein Negative mg/dL (NEG-TRACE) Urine Glucose (UA) Negative mg/dL (NEG) Urine Ketones (Stick) Negative mg/dL (NEG) Urine Blood Negative (NEG) Urine Nitrite Negative (NEG) Urine Bilirubin Negative (NEG) Urine Urobilinogen Dipstick 0.2 mg/dL (0.2 mg/dL) Urine Leukocyte Esterase Negative (NEG) Urine RBC 0 /HPF (0-2) Urine WBC Rare /HPF (0-4) Urine Squamous Epithelial Cells Few /LPF Urine Bacteria Few /HPF (0-FEW) Urine Opiates Screen Neg (NEG) Urine Methadone Screen Neg (NEG) Urine Barbiturates Neg (NEG) Urine Phencyclidine Screen Neg (NEG) Urine Amphetamine/Methamphetamine Neg (NEG) Urine Benzodiazepines Screen Pos (NEG) Urine Cocaine Screen Neg (NEG) Urine Cannabinoids Screen Pos (NEG) Urine Ethyl Alcohol Neg (NEG) SARS-CoV-2 Antigen (Rapid) Negative (NEGATIVE) Laboratory Tests Test 07/03/20 17:20 07/03/20 17:45 07/03/20 18:40 07/03/20 20:17 Stool Occult Blood Negative (NEG) White Blood Count 4.5 x10^3/uL (4.0-11.0) Red Blood Count 3.75 x10^6/uL (3.50-5.40) Hemoglobin 10.0 g/dL (12.0-15.5) Hematocrit 30.8 % (36.0-47.0) Mean Corpuscular Volume 82 fL (79-100) Mean Corpuscular Hemoglobin 27 pg (25-35) Mean Corpuscular Hemoglobin Concent 33 g/dL (31-37) Red Cell Distribution Width 22.8 % (11.5-14.5) Platelet Count 244 x10^3/uL (140-400) Neutrophils (%) (Auto) 78 % (31-73) Lymphocytes (%) (Auto) 10 % (24-48) Monocytes (%) (Auto) 9 % (0-9) Eosinophils (%) (Auto) 2 % (0-3) Basophils (%) (Auto) 1 % (0-3) Neutrophils # (Auto) 3.5 x10^3/uL (1.8-7.7) Lymphocytes # (Auto) 0.5 x10^3/uL (1.0-4.8) Monocytes # (Auto) 0.4 x10^3/uL (0.0-1.1) Eosinophils # (Auto) 0.1 x10^3/uL (0.0-0.7) Basophils # (Auto) 0.0 x10^3/uL (0.0-0.2) Platelet Estimate Adequate (ADEQUATE) Polychromasia Slight Anisocytosis Mod Prothrombin Time 12.1 SEC (11.7-14.0) Prothromb Time International Ratio 0.9 (0.8-1.1) Sodium Level 143 mmol/L (136-145) Potassium Level 3.4 mmol/L (3.5-5.1) Chloride Level 105 mmol/L (98-107) Carbon Dioxide Level 29 mmol/L (21-32) Anion Gap 9 (6-14) Blood Urea Nitrogen 8 mg/dL (7-20) Creatinine 0.6 mg/dL (0.6-1.0) Estimated GFR (Cockcroft-Gault) 105.4 BUN/Creatinine Ratio 13 (6-20) Glucose Level 135 mg/dL (70-99) Calcium Level 8.9 mg/dL (8.5-10.1) Total Bilirubin 0.2 mg/dL (0.2-1.0) Aspartate Amino Transf (AST/SGOT) 14 U/L (15-37) Alanine Aminotransferase (ALT/SGPT) 31 U/L (14-59) Alkaline Phosphatase 90 U/L (46-116) Troponin I Quantitative < 0.017 ng/mL (0.000-0.055) Total Protein 6.6 g/dL (6.4-8.2) Albumin 3.4 g/dL (3.4-5.0) Albumin/Globulin Ratio 1.1 (1.0-1.7) Lipase 149 U/L (73-393) Urine Collection Type Void Urine Color Yellow Urine Clarity Clear Urine pH 6.5 (<5.0-8.0) Urine Specific Collison 1.020 (1.000-1.030) Urine Protein Negative mg/dL (NEG-TRACE) Urine Glucose (UA) Negative mg/dL (NEG) Urine Ketones (Stick) Negative mg/dL (NEG) Urine Blood Negative (NEG) Urine Nitrite Negative (NEG) Urine Bilirubin Negative (NEG) Urine Urobilinogen Dipstick 0.2 mg/dL (0.2 mg/dL) Urine Leukocyte Esterase Negative (NEG) Urine RBC 0 /HPF (0-2) Urine WBC Rare /HPF (0-4) Urine Squamous Epithelial Cells Few /LPF Urine Bacteria Few /HPF (0-FEW) Urine Opiates Screen Neg (NEG) Urine Methadone Screen Neg (NEG) Urine Barbiturates Neg (NEG) Urine Phencyclidine Screen Neg (NEG) Urine Amphetamine/Methamphetamine Neg (NEG) Urine Benzodiazepines Screen Pos (NEG) Urine Cocaine Screen Neg (NEG) Urine Cannabinoids Screen Pos (NEG) Urine Ethyl Alcohol Neg (NEG) SARS-CoV-2 Antigen (Rapid) Negative (NEGATIVE) Images Images ---PQRS compliance statement - One or more of the following individualized dose reduction techniques were utilized for this study: 1. Automated exposure control 2. Adjustment of the mA and/or kV according to patient size 3. Use of iterative reconstruction technique--- FINDINGS: Lower chest: Linear opacities lower lobes and lingula likely scarring/atelectasis. Groundglass opacities dependently represent atypical infectious/odontoid process or atelectasis. Aortic root calcifications are seen. Abdomen and pelvis: Liver and biliary system: Hepatic hypoattenuation likely fatty liver. Cholecystectomy clips are seen. No biliary duct dilatation. Spleen: Unremarkable Pancreas: Unremarkable Adrenal glands: Unremarkable Kidneys: Symmetric nephrograms. No focal renal lesion. No hydronephrosis. No hydroureter. Bladder is unremarkable. Lymph nodes/retroperitoneum: No abdominal or pelvic lymphadenopathy. Vessels: Aortic calcifications are seen. Bowel/Peritoneal cavity: Moderate colonic stool content is seen. Appendectomy changes are seen. No small or large bowel dilatation. No bowel obstruction. A few colonic diverticula are seen. Mild eccentric thickening of the rectum, less than clinical significance. No abdominal or pelvic ascites. Abdominal wall: Trace fat-containing periumbilical hernia. Bladder: Unremarkable Bones: Marked sclerosis and callus formation in the region of the right ischial tuberosity. IMPRESSION: 1. Mild thickening of the rectum can be correlated with clinical examination and colonoscopy for possible underlying infectious/inflammatory process or malignancy. 2. A few colonic diverticula are seen. No evidence for acute diverticulitis. No bowel obstruction. 3. Marked sclerosis and callus formation in the region of the right ischial tuberosity. This may represent healing insufficiency fracture although primary osseous lesion is not excluded. This can be correlated with patient's symptoms and if further imaging is clinically indicated, MRI may provide additional details. 4. Groundglass opacities dependently represent atypical infectious/odontoid process or atelectasis 5. Hepatic hypoattenuation, likely fatty liver. Electronically signed by: Damion Mendoaz MD (07/03/2020 7:06 PM) [facility] DICTATED and SIGNED BY: DAMION MENDOZA MD DATE: 07/03/201905 VTE Prophylaxis Ordered VTE Prophylaxis Devices: No VTE Pharmacological Prophylaxi: No Assessment/Plan Assessment/Plan IMPRESSION: 1. Mild thickening of the rectum can be correlated with clinical examination and colonoscopy for possible underlying infectious/inflammatory process or malignancy. 2. few colonic diverticula are seen. No evidence for acute diverticulitis. 3. Marked sclerosis and callus formation in the region of the right ischial tuberosity. This may represent healing insufficiency fracture although primary osseous lesion is not excluded. if further imaging is clinically indicated, MRI may provide additional details. 4. Groundglass opacities dependently represent atypical infectious/ or atelectasis of lung 5. fatty liver. 6. morbid obesity 7. gastroesophageal reflux disease, 8. chronic rectal ulcers, 9. anemia, anxiety 10.report of narcotic abuse REMOTE 11. Hx ADELFO, MDD 12. normocytic anemia 13. diarrhea 14 PUI plan ADMIT GI Consult NPO IV FLUID SUPPORT ORTHO CONSULT covid neg screen 07/04 NEEDS DPOA DPOA DISCUSSION AND REVIEW, 17 MIN What Is a Power of Colon Therapist? A power of ip attorney (POA) is a legal document giving one person (the agent or [id number]) the power to act for another person (the principal). The agent can have broad legal authority or limited authority to make legal decisions about the principal's property, finances or medical care. The power of ip attorney is frequently used in the event of a principal's illness or disability, or when the principal can't be present to sign necessary legal documents for financial transactions. A power of ip attorney can end for a number of reasons, such as when the principal dies, the principal revokes it, a court invalidates it, the principal divorces their spouse, who happens to be the agent, or the agent can no longer carry out the outlined responsibilities. Conventional POAs lapse when the creator becomes incapacitated, but a durable POA remains in force to enable the agent to manage the creators affairs, and a springing POA comes into effect only if and when the creator of the POA becomes incapacitated. A medical or healthcare POA enables an agent to make medical decisions on behalf of an incapacitated person. [employer]ell Takeaways A power of ip attorney (POA) is a legal document giving one person, the agent or [id number] the power to act for another person, the principal. The agent can have broad legal authority or limited authority to make decisions about the principal's property, finances or medical care. The power of ip attorney is often used when a principal becomes ill or disabled, or when they can't be present to sign necessary legal documents for financial transactions. Understanding Power of Colon Therapist A power of ip attorney should be considered when planning for long-term care. There are different types of POAs that fall under either a general power of ip attorney or limited power of ip attorney. A general power of ip attorney acts on behalf of the principal in any and all matters, as allowed by the state. The agent under a general POA agreement may be authorized to take care of issues such as handling bank accounts, signing ch ecks, selling property and assets like stocks, f A limited power of ip attorney gives the agent the power to act on behalf of the principal in specific matters or events. For example, the limited POA may explicitly state that the agent is only allowed to manage the principal's assisted accounts. A limited POA may also be limited to a specific period of time (e.g., if the principal will be out of the country for, say, two years). Most bearden of ip attorney documents allow an agent to represent the principal in all property and financial matters as long as the principals mental state of mind is good. If a situation occurs where the principal becomes incapable of making decisions for him or herself, the POA agreement would automatically end. However, someone who wants the POA to remain in effect after the persons health deteriorates would need to sign a durable power of ip attorney (DPOA). Important:A person appointed as power of ip attorney is not necessarily an ip attorney. The person could just be a trusted family member, friend, or acquaintance. Understanding the Durable Power of Colon Therapist (DPOA) The durable power of ip attorney (DPOA) remains in control of certain legal, property or financial matters specifically spelled out in the agreement, even after the principal becomes mentally incapacitated. While a DPOA can pay medical bills on behalf of the principal, the durable agent cannot make decisions related to the principal's health (e.g., taking the principal off life support is not up to a DPOA). The principal can sign a durable power of ip attorney for health care, or healthcare power of ip attorney (HCPA), if he wants an agent to have the power to make health-related decisions. This document also called a healthcare proxy, outlines the principals consent to give the agent POA privileges in the event of an unfortunate medical condition. The durable POA for healthcare is legally bound to oversee medical care decisions on behalf of the principal. Another type of DPOA is the durable power of ip attorney for finances, or simply a financial power of ip attorney. This document allows an agent to manage the business and financial affairs of the principal, such as signing checks, filing tax returns, mailing and depositing Social Security checks and managing investment accounts, in the event, the latter becomes unable to understand or make decisions. To the extent of what the agreement spells out as the agents responsibility, the agent has to carry out the principals wishes to the best of his ability. When the agent acts on behalf of the principal by making investment decisions through the procedural nurse or medical decisions through the healthcare professional, both institutions would ask to see the DPOA. Although the DPOA for both medical and financial matters can be one document, it is good to have separate DPOA for healthcare and finances. Since the DPOA for healthcare will have the principal's personal medical information, it would be inappropriate for the procedural nurse to have it, and the medical receptionist biller dont need to know the financial status of the patient either. conditions for which a durable POA may become active are set up in a document called the springing power of ip attorney. The springing POA defines the kind of event or level of incapacitation that should occur before the DPOA springs into effect. A power of ip attorney can remain dormant until a negative health occurrence activates it to a DPOA. How Power of Colon Therapist Works You can buy or download a power of ip attorney template. If you do, be sure it is for your state, as requirements differ. However, this document may be too important to leave to the chance that you got the correct form and handled it properly. Justifications for Admission Other Justification DEISY VUONG MD Jul 04, 2020 07:19
--- NOTE | 2020-07-04 08:08 | EKG ---
[facility] [address] [place] [address] Test Date: 2020-07-03 Test Time: 17:25:21 Pat Name: HIPOLITO NELSON Department: Room: Gender: F Time Motion Analyst: : 1970 Requested By: CARLI HARTLEY Order Number: [id number] Reading MD: Measurements Intervals [place] Rate: P: NM: QRS: QRSD: T: QT: QTc: Interpretive Statements
[2020-07-04] MEDS: PANTOPRAZOLE 40 MG TABLET.DR. PO SCH (08:48)
[2020-07-04] MEDS: DULoxetine HCL 30 MG CAPSULE.DR PO SCH (08:48)
[2020-07-04] MEDS ORDERED: ONDANSETRON PF 4 MG/2 ML VIAL. IVP PRN (09:30)
--- NOTE | 2020-07-04 10:39 | PDOC2 ---
GI CONSULT Date of Service: DATE: 07/04/20 TIME: 10:39 Reason For Consult: rectal inflammation, intractable abd pain HPI: HPI: 50 y/o female who reports LLQ pain, diarrhea (watery - once with a little red blood), and vomiting that began without precipitating events yesterday - awoke from sleeping. Doesn't feel well right now - history limited - nauseated, also just got Dilaudid. H/o GERD on Prevacid QD. H/o rectal ulcer and rectal inflammation on past CTs on mesalamine suppository QD. EGD and colonoscopy in 06/[address] Waldron for GI bleeding showed gastritis, 5cm distal rectal ulcer w/ visible vessel (path w/ epithelial hyperplastic changes, underlying granulation tissue and associated mild acute/chronic inflammation), diverticulosis, two hyperplastic polyps, and one tubular adenoma. Has had 22 abd/pelv CTs here since 2013 including CTA in 2018 w/ patent celiac, SMA, and LETICIA. Rectal thickening/proctitis noted on 3 of these. Note from radiologist in 06/2017 - "Please note that patient has had numerous CTs of the abdomen and pelvis at many hospital facilities. Extreme care in the future should be taken regarding indications for CT imaging." Seen in ER here many many times for abd pain, sometimes leave AMA or without being seen. SBS negative in 2018. Hepatic steatosis on past imaging. Chronic pain on hydrocodone PRN at home. PMH: PMH: HTN, HLD, anxiety/depression/panic appendectomy, cholecystectomy, umbilical hernia repair, rectal prolapse repair, hysterectomy, BSO Social History: Smoke: Quit ALCOHOL: occassional Drugs: Marijuana ROS: GEN: Denies fevers, chills, sweats HEENT: Denies blurred vision, sore throat CV: Denies chest pain RESP: Denies shortness of air, cough GI: Per HPI : Denies hematuria, dysuria ENDO: Denies weight changes NEURO: Denies confusion, dizziness MSK: Denies weakness, joint pain/swelling SKIN: Denies jaundice, pruritus Vitals: Vitals: Vital Signs Date Time Temp Pulse Resp B/P (MAP) Pulse Ox O2 Delivery O2 Flow Rate FiO2 07/04/20 09:34 18 90 Room Air 07/04/20 09:03 112 165/102 07/04/20 07:30 98.4 98.4 Labs: Labs: Laboratory Tests Test 07/03/20 17:20 07/03/20 17:45 07/03/20 18:40 07/03/20 20:17 Stool Occult Blood Negative (NEG) White Blood Count 4.5 x10^3/uL (4.0-11.0) Red Blood Count 3.75 x10^6/uL (3.50-5.40) Hemoglobin 10.0 g/dL (12.0-15.5) Hematocrit 30.8 % (36.0-47.0) Mean Corpuscular Volume 82 fL (79-100) Mean Corpuscular Hemoglobin 27 pg (25-35) Mean Corpuscular Hemoglobin Concent 33 g/dL (31-37) Red Cell Distribution Width 22.8 % (11.5-14.5) Platelet Count 244 x10^3/uL (140-400) Neutrophils (%) (Auto) 78 % (31-73) Lymphocytes (%) (Auto) 10 % (24-48) Monocytes (%) (Auto) 9 % (0-9) Eosinophils (%) (Auto) 2 % (0-3) Basophils (%) (Auto) 1 % (0-3) Neutrophils # (Auto) 3.5 x10^3/uL (1.8-7.7) Lymphocytes # (Auto) 0.5 x10^3/uL (1.0-4.8) Monocytes # (Auto) 0.4 x10^3/uL (0.0-1.1) Eosinophils # (Auto) 0.1 x10^3/uL (0.0-0.7) Basophils # (Auto) 0.0 x10^3/uL (0.0-0.2) Platelet Estimate Adequate (ADEQUATE) Polychromasia Slight Anisocytosis Mod Prothrombin Time 12.1 SEC (11.7-14.0) Prothromb Time International Ratio 0.9 (0.8-1.1) Sodium Level 143 mmol/L (136-145) Potassium Level 3.4 mmol/L (3.5-5.1) Chloride Level 105 mmol/L (98-107) Carbon Dioxide Level 29 mmol/L (21-32) Anion Gap 9 (6-14) Blood Urea Nitrogen 8 mg/dL (7-20) Creatinine 0.6 mg/dL (0.6-1.0) Estimated GFR (Cockcroft-Gault) 105.4 BUN/Creatinine Ratio 13 (6-20) Glucose Level 135 mg/dL (70-99) Calcium Level 8.9 mg/dL (8.5-10.1) Total Bilirubin 0.2 mg/dL (0.2-1.0) Aspartate Amino Transf (AST/SGOT) 14 U/L (15-37) Alanine Aminotransferase (ALT/SGPT) 31 U/L (14-59) Alkaline Phosphatase 90 U/L (46-116) Troponin I Quantitative < 0.017 ng/mL (0.000-0.055) Total Protein 6.6 g/dL (6.4-8.2) Albumin 3.4 g/dL (3.4-5.0) Albumin/Globulin Ratio 1.1 (1.0-1.7) Lipase 149 U/L (73-393) Urine Collection Type Void Urine Color Yellow Urine Clarity Clear Urine pH 6.5 (<5.0-8.0) Urine Specific [place] 1.020 (1.000-1.030) Urine Protein Negative mg/dL (NEG-TRACE) Urine Glucose (UA) Negative mg/dL (NEG) Urine Ketones (Stick) Negative mg/dL (NEG) Urine Blood Negative (NEG) Urine Nitrite Negative (NEG) Urine Bilirubin Negative (NEG) Urine Urobilinogen Dipstick 0.2 mg/dL (0.2 mg/dL) Urine Leukocyte Esterase Negative (NEG) Urine RBC 0 /HPF (0-2) Urine WBC Rare /HPF (0-4) Urine Squamous Epithelial Cells Few /LPF Urine Bacteria Few /HPF (0-FEW) Urine Opiates Screen Neg (NEG) Urine Methadone Screen Neg (NEG) Urine Barbiturates Neg (NEG) Urine Phencyclidine Screen Neg (NEG) Urine Amphetamine/Methamphetamine Neg (NEG) Urine Benzodiazepines Screen Pos (NEG) Urine Cocaine Screen Neg (NEG) Urine Cannabinoids Screen Pos (NEG) Urine Ethyl Alcohol Neg (NEG) SARS-CoV-2 Antigen (Rapid) Negative (NEGATIVE) Allergies: Coded Allergies: cephalexin (Verified Allergy, Intermediate, rash, red ears, 08/29/18) ketorolac (Verified Allergy, Intermediate, HIVES, 11/22/18) prochlorperazine (Verified Allergy, Intermediate, 11/24/16) Medications: Current Medications Medications (Trade) Dose Ordered Sig/Ga Route PRN Reason Start Time Stop Time Status Last Admin Dose Admin Sodium Chloride 1,000 ml @ 1,000 mls/hr Q1H IV 07/03/20 17:12 07/03/20 18:11 DC 07/03/20 17:52 Ondansetron HCl (Zofran) 4 mg 1X ONCE IVP 07/03/20 17:15 07/03/20 17:17 DC 07/03/20 17:53 Fentanyl Citrate (Fentanyl 2ml Vial) 50 mcg 1X ONCE IVP 07/03/20 17:30 07/03/20 17:31 DC 07/03/20 17:53 Iohexol (Omnipaque 300 Mg/ml) 75 ml 1X ONCE IV 07/03/20 18:30 07/03/20 18:31 DC 07/03/20 18:34 Fentanyl Citrate (Fentanyl 2ml Vial) 50 mcg 1X ONCE IVP 07/03/20 19:00 07/03/20 19:01 DC 07/03/20 19:15 Fentanyl Citrate (Fentanyl 2ml Vial) 50 mcg PRN Q1HR PRN IV PAIN 07/03/20 19:45 07/04/20 19:44 07/03/20 23:54 Sodium Chloride 1,000 ml @ 100 mls/hr Q10H IV 07/03/20 19:35 07/04/20 19:34 07/04/20 04:16 Duloxetine HCl (Cymbalta) 120 mg DAILY PO 07/04/20 09:00 07/04/20 08:48 Pantoprazole Sodium (Protonix) 40 mg DAILYAC PO 07/04/20 07:30 07/04/20 08:48 Hydromorphone HCl (Dilaudid) 0.5 mg PRN Q3HRS PRN IVP SEVERE PAIN 7-10 07/04/20 00:30 07/04/20 09:04 Hydralazine HCl (Apresoline Inj) 10 mg PRN Q4HRS PRN IVP ELEVATED BP, SEE COMMENTS 07/04/20 00:30 07/04/20 09:03 Ondansetron HCl (Zofran) 4 mg PRN Q6HRS PRN IVP NAUSEA/VOMITING 07/04/20 09:30 07/04/20 09:40 Imaging: Imaging: CXR IMPRESSION: Minimal patchy opacities right greater than left lung base, nonspecific but may represent atypical infectious or inflammatory process, better assessed on prior CT. CT A/P IMPRESSION: 1. Mild thickening of the rectum can be correlated with clinical examination and colonoscopy for possible underlying infectious/inflammatory process or malignancy. 2. A few colonic diverticula are seen. No evidence for acute diverticulitis. No bowel obstruction. 3. Marked sclerosis and callus formation in the region of the right ischial tuberosity. This may represent healing insufficiency fracture although primary osseous lesion is not excluded. This can be correlated with patient's symptoms and if further imaging is clinically indicated, MRI may provide additional d etails. 4. Groundglass opacities dependently represent atypical infectious/odontoid process or atelectasis 5. Hepatic hypoattenuation, likely fatty liver. PE: GEN: appears uncomfortable HEENT: Atraumatic, PERRL LUNGS: diminished anteriorly HEART: tachycardic ABD: quiet BS, diffuse discomfort to light touch EXTREMITY: No edema SKIN: No rashes, no jaundice NEURO/PSYCH: A & O 3 A/P: A/P: Vomiting, diarrhea, abd pain Chronic anemia, Hemoccult negative GERD - on PPI CRC screen, h/o adenomatous colon polyps - UTD H/o rectal ulcer Diverticulosis S/p cholecystectomy Hepatic steatosis +cannabinoids Chronic pain - concern for drug-seeking in the past Rapid COVID test negative -- Seems chronic/recurrent/long history of similar issues. Clears, ADAT. Gave okay for Zofran. Agree w/ PPI - can change to IV if ongoing vomiting. Check stool tests and anemia parameters. ?on [place] at home - will review need for this w/ Dr. Pena Staff asking about discharge - would try diet and observe for diarrhea first. ILYA CONNOLLY Jul 04, 2020 10:39
--- NOTE | 2020-07-04 15:54 | PDOC2 ---
CONSULT Date of Consult Date of Consult DATE: 07/04/20 TIME: 15:50 Reason for Consult Reason for Consult: Abnormality noted on pelvis CT Referring Physician Referring Physician: Florinda Identification/Chief Complaint Chief Complaint Abdominal complaints Source Source: Chart review, Patient History of Present Illness Reason for Visit: Patient is a 50-year-old female who was admitted for suspected colitis, she has a longstanding history of of abdominal complaints and bowel issues. I was asked to see her in consultation as an abnormality was noted on a pelvis CT. She tells me that in addition her abdominal complaints, she has some buttock and groin pain from time to time. It is not regular. The pain does not radiate down her leg. She has not tried any treatments or seen any providers for this to the best of her memory. She cannot recall any accidents or injuries that triggered this pain. Past Medical History Cardiovascular: No pertinent hx Pulmonary: No pertinent hx GI: GERD, Hemorrhoids, Irritable bowel disease Heme/Onc: No pertinent hx Hepatobiliary: No pertinent hx Psych: Anxiety Rheumatologic: No pertinent hx Infectious disease: No pertinent hx Renal/: No pertinent hx Endocrine: No pertinent hx Past Surgical History Past Surgical History: Appendectomy, Cholecystectomy, , Hysterectomy, Other Family History Family History: Depression, High Cholestrol Social History Social History: Parent Quit ALCOHOL: occassional Drugs: Marijuana Current Problem List Problem List Problems Medical Problems: (1) Intractable abdominal pain Status: Acute (2) Person under investigation for COVID-19 Status: Acute Current Medications Current Medications Current Medications Sodium Chloride 1,000 ml @ 1,000 mls/hr Q1H IV Last administered on 07/03/20at 17:52; Start 07/03/20 at 17:12; Stop 07/03/20 at 18:11; Status DC Ondansetron HCl (Zofran) 4 mg 1X ONCE IVP Last administered on 07/03/20at 17:53; Start 07/03/20 at 17:15; Stop 07/03/20 at 17:17; Status DC Fentanyl Citrate (Fentanyl 2ml Vial) 50 mcg 1X ONCE IVP Last administered on 07/03/20at 17:53; Start 07/03/20 at 17:30; Stop 07/03/20 at 17:31; Status DC Iohexol (Omnipaque 300 Mg/ml) 75 ml 1X ONCE IV Last administered on 07/03/20at 18:34; Start 07/03/20 at 18:30; Stop 07/03/20 at 18:31; Status DC Info (CONTRAST GIVEN -- Rx MONITORING) 1 each PRN DAILY PRN MC SEE COMMENTS; Start 07/03/20 at 18:45; Stop 07/05/20 at 18:44 Fentanyl Citrate (Fentanyl 2ml Vial) 50 mcg 1X ONCE IVP Last administered on 07/03/20at 19:15; Start 07/03/20 at 19:00; Stop 07/03/20 at 19:01; Status DC Ondansetron HCl (Zofran) 4 mg PRN Q8HRS PRN IV NAUSEA/VOMITING; Start 07/03/20 at 19:45; Stop 07/04/20 at 19:44 Fentanyl Citrate (Fentanyl 2ml Vial) 50 mcg PRN Q1HR PRN IV PAIN Last administered on 07/03/20at 23:54; Start 07/03/20 at 19:45; Stop 07/04/20 at 19:44 Sodium Chloride 1,000 ml @ 100 mls/hr Q10H IV Last administered on 07/04/20at 04:16; Start 07/03/20 at 19:35; Stop 07/04/20 at 19:34 Acetaminophen/ Hydrocodone Bitart (Lortab 5/325) 1 tab PRN Q6HRS PRN PO MODERATE PAIN 4-6; Start 07/04/20 at 00:15 Simvastatin (Zocor) 40 mg QHS PO ; Start 07/04/20 at 21:00 Trazodone HCl (Desyrel) 100 mg HS PO ; Start 07/04/20 at 21:00 Duloxetine HCl (Cymbalta) 120 mg DAILY PO Last administered on 07/04/20at 08:48; Start 07/04/20 at 09:00 Pantoprazole Sodium (Protonix) 40 mg DAILYAC PO Last administered on 07/04/20at 08:48; Start 07/04/20 at 07:30 Ondansetron HCl (Zofran Odt) 4 mg PRN Q8HRS PRN PO NAUSEA/VOMITING 1ST CHOICE; Start 07/04/20 at 00:30 Alprazolam (Xanax) 0.25 mg PRN Q8HRS PRN PO ANXIETY / AGITATION; Start 07/04/20 at 00:30 Hydromorphone HCl (Dilaudid) 0.5 mg PRN Q3HRS PRN IVP SEVERE PAIN 7-10 Last administered on 07/04/20at 13:02; Start 07/04/20 at 00:30 Hydralazine HCl (Apresoline Inj) 10 mg PRN Q4HRS PRN IVP ELEVATED BP, SEE COMMENTS Last administered on 07/04/20at 09:03; Start 07/04/20 at 00:30 Ondansetron HCl (Zofran) 4 mg PRN Q6HRS PRN IVP NAUSEA/VOMITING Last administered on 07/04/20at 09:40; Start 07/04/20 at 09:30 Ciprofloxacin/ Dextrose 100 ml @ 100 mls/hr Q12HR IV ; Start 07/04/20 at 15:00 Metronidazole 100 ml @ 100 mls/hr Q12HR IV ; Start 07/04/20 at 15:00 Active Scripts Active [place] 5-325 Tablet (Acetaminophen/Hydrocodone Bitart) 1 Each Tablet 1 Tab PO PRN Q6HRS PRN 10 Days Zofran (Ondansetron Hcl) 4 Mg Tablet 1 Tab PO Q8HRS PRN Reported Trazodone Hcl 100 Mg Tablet 100 Mg PO HS Xanax Xr (Alprazolam) 1 Mg Tab.er.24h 2 Mg PO DAILY Cymbalta (Duloxetine Hcl) 60 Mg Capsule.dr 120 Mg PO DAILY Zocor (Simvastatin) 5 Mg Tablet 40 Mg PO DAILY Prevacid 24HR (Lansoprazole) 15 Mg Capsule.dr 30 Mg PO DAILY Allergies Allergies: Coded Allergies: cephalexin (Verified Allergy, Intermediate, rash, red ears, 08/29/18) ketorolac (Verified Allergy, Intermediate, HIVES, 11/22/18) prochlorperazine (Verified Allergy, Intermediate, 11/24/16) ROS General: No: Chills, Night Sweats, Fatigue, Malaise, Appetite, Other PSYCHOLOGICAL ROS: No: Anxiety, Behavioral Disorder, Concentration difficultie, Decreased libido, Depression, Disorientation, Hallucinations, Hostility, Irrita blity, Memory difficulties, Mood Swings, Obsessive thoughts, Physical abuse, Sexual abuse, Sleep disturbances, Suicidal ideation, Other Eyes: No Blurry vision, No Decreased vision, No Double vision, No Dry eyes, No Excessive tearing, No Eye Pain, No Itchy Eyes, No Loss of vision, No Photophobia, No Scotomata, No Uses contacts, No Uses glasses, No Other HEENT: No: Heacaches, Visual Changes, Hearing change, Nasal congestion, Nasal discharge, Oral lesions, Sinus pain, Sore Throat, Epistaxis, Sneezing, Snoring, Tinnitus, Vertigo, Vocal changes, Other ALLERGY AND IMMUNOLOGY: No: Hives, Insect Bite Sensitivity, Itchy/Watery Eyes, Nasal Congestion, Post Nasal Drip, Seasonal Allergies, Other Hematological and Lymphatic: No: Bleeding Problems, Blood Clots, Blood Transfusions, Brusing, Night Sweats, Pallor, Swollen Lymph Nodes, Other ENDOCRINE: No: Breast Changes, Galactorrhea, Hair Pattern Changes, Hot Flashes, Malaise/lethargy, Mood Swings, Palpitations, Polydipsia/polyuria, Skin Changes, Temperature Intolerance, Unexpected Weight Changes, Other Respiratory: No: Cough, Hemoptysis, Orthopnea, Pleuritic Pain, Shortness of breath, SOB with excertion, Sputum Changes, Stridor, Tachypnea, Wheezing, Other Cardiovascular: No Chest Pain, No Palpitations, No Orthopnea, No Paroxysmal Noc. Dyspnea, No Edema, No Lt Headedness, No Other Gastrointestinal: Yes Nausea, Yes Abdominal Pain, Yes Diarrhea Genitourinary: No Dysuria, No Frequency, No Incontinence, No Hematuria, No Retention, No Discharge, No Urgency, No Pain, No Flank Pain, No Other, No , No , No , No , No , No , No Musculoskeletal: Yes Joint Pain Neurological: No Behavorial Changes, No Bowel/Bladder ControlChng, No Confusion, No Dizziness, No Gait Disturbance, No Headaches, No Impaired Coord/balance, No Memory Loss, No Numbness/Tingling, No Seizures, No Speech Problems, No Tremors, No Visual Changes, No Weakness, No Other Skin: No Dry Skin, No Eczema, No Hair Changes, No Lumps, No Mole Changes, No Mottling, No Nail Changes, No Pruritus, No Rash, No Skin Lesion Changes, No Other, No Acne Physical Exam General: Alert, Oriented X3 HEENT: Atraumatic, EOMI Lungs: Other (Respirations are unlabored with symmetric chest rise) Heart: Regular rate Abdomen: Soft, No tenderness Extremities: Normal pulses, Other (Mild edema at her ankles.) Neuro: Normal speech, Strength at 5/5 X4 ext, Sensation intact Psych/Mental Status: Mental status NL, Mood NL MUSCULOSKELETAL: Other (Examination of her bilateral lower extremities reveals no gross deformity. She can wiggle her toes. She has symmetric range of motion in her hips. No pain with passive range of motion at her hips. No tenderness laterally) Vitals VITALS Vital Signs Date Time Temp Pulse Resp B/P (MAP) Pulse Ox O2 Delivery O2 Flow Rate FiO2 07/04/20 13:02 18 93 Room Air 07/04/20 11:34 98.2 74 163/92 (115) 98.2 Labs Labs Laboratory Tests Test 07/03/20 17:20 07/03/20 17:45 07/03/20 18:40 07/03/20 20:17 Stool Occult Blood Negative (NEG) White Blood Count 4.5 x10^3/uL (4.0-11.0) Red Blood Count 3.75 x10^6/uL (3.50-5.40) Hemoglobin 10.0 g/dL (12.0-15.5) Hematocrit 30.8 % (36.0-47.0) Mean Corpuscular Volume 82 fL (79-100) Mean Corpuscular Hemoglobin 27 pg (25-35) Mean Corpuscular Hemoglobin Concent 33 g/dL (31-37) Red Cell Distribution Width 22.8 % (11.5-14.5) Platelet Count 244 x10^3/uL (140-400) Neutrophils (%) (Auto) 78 % (31-73) Lymphocytes (%) (Auto) 10 % (24-48) Monocytes (%) (Auto) 9 % (0-9) Eosinophils (%) (Auto) 2 % (0-3) Basophils (%) (Auto) 1 % (0-3) Neutrophils # (Auto) 3.5 x10^3/uL (1.8-7.7) Lymphocytes # (Auto) 0.5 x10^3/uL (1.0-4.8) Monocytes # (Auto) 0.4 x10^3/uL (0.0-1.1) Eosinophils # (Auto) 0.1 x10^3/uL (0.0-0.7) Basophils # (Auto) 0.0 x10^3/uL (0.0-0.2) Platelet Estimate Adequate (ADEQUATE) Polychromasia Slight Anisocytosis Mod Prothrombin Time 12.1 SEC (11.7-14.0) Prothromb Time International Ratio 0.9 (0.8-1.1) Sodium Level 143 mmol/L (136-145) Potassium Level 3.4 mmol/L (3.5-5.1) Chloride Level 105 mmol/L (98-107) Carbon Dioxide Level 29 mmol/L (21-32) Anion Gap 9 (6-14) Blood Urea Nitrogen 8 mg/dL (7-20) Creatinine 0.6 mg/dL (0.6-1.0) Estimated GFR (Cockcroft-Gault) 105.4 BUN/Creatinine Ratio 13 (6-20) Glucose Level 135 mg/dL (70-99) Calcium Level 8.9 mg/dL (8.5-10.1) Total Bilirubin 0.2 mg/dL (0.2-1.0) Aspartate Amino Transf (AST/SGOT) 14 U/L (15-37) Alanine Aminotransferase (ALT/SGPT) 31 U/L (14-59) Alkaline Phosphatase 90 U/L (46-116) Troponin I Quantitative < 0.017 ng/mL (0.000-0.055) Total Protein 6.6 g/dL (6.4-8.2) Albumin 3.4 g/dL (3.4-5.0) Albumin/Globulin Ratio 1.1 (1.0-1.7) Lipase 149 U/L (73-393) Urine Collection Type Void Urine Color Yellow Urine Clarity Clear Urine pH 6.5 (<5.0-8.0) Urine Specific [place] 1.020 (1.000-1.030) Urine Protein Negative mg/dL (NEG-TRACE) Urine Glucose (UA) Negative mg/dL (NEG) Urine Ketones (Stick) Negative mg/dL (NEG) Urine Blood Negative (NEG) Urine Nitrite Negative (NEG) Urine Bilirubin Negative (NEG) Urine Urobilinogen Dipstick 0.2 mg/dL (0.2 mg/dL) Urine Leukocyte Esterase Negative (NEG) Urine RBC 0 /HPF (0-2) Urine WBC Rare /HPF (0-4) Urine Squamous Epithelial Cells Few /LPF Urine Bacteria Few /HPF (0-FEW) Urine Opiates Screen Neg (NEG) Urine Methadone Screen Neg (NEG) Urine Barbiturates Neg (NEG) Urine Phencyclidine Screen Neg (NEG) Urine Amphetamine/Methamphetamine Neg (NEG) Urine Benzodiazepines Screen Pos (NEG) Urine Cocaine Screen Neg (NEG) Urine Cannabinoids Screen Pos (NEG) Urine Ethyl Alcohol Neg (NEG) SARS-CoV-2 Antigen (Rapid) Negative (NEGATIVE) Test 07/04/20 12:00 Iron Level 32 ug/dL (50-170) Total Iron Binding Capacity 334 ug/dL (250-450) Iron Saturation 10 % (15-34) Vitamin B12 Level 391 pg/mL (247-911) Laboratory Tests Test 07/03/20 17:20 07/03/20 17:45 07/03/20 18:40 07/03/20 20:17 Stool Occult Blood Negative (NEG) White Blood Count 4.5 x10^3/uL (4.0-11.0) Red Blood Count 3.75 x10^6/uL (3.50-5.40) Hemoglobin 10.0 g/dL (12.0-15.5) Hematocrit 30.8 % (36.0-47.0) Mean Corpuscular Volume 82 fL (79-100) Mean Corpuscular Hemoglobin 27 pg (25-35) Mean Corpuscular Hemoglobin Concent 33 g/dL (31-37) Red Cell Distribution Width 22.8 % (11.5-14.5) Platelet Count 244 x10^3/uL (140-400) Neutrophils (%) (Auto) 78 % (31-73) Lymphocytes (%) (Auto) 10 % (24-48) Monocytes (%) (Auto) 9 % (0-9) Eosinophils (%) (Auto) 2 % (0-3) Basophils (%) (Auto) 1 % (0-3) Neutrophils # (Auto) 3.5 x10^3/uL (1.8-7.7) Lymphocytes # (Auto) 0.5 x10^3/uL (1.0-4.8) Monocytes # (Auto) 0.4 x10^3/uL (0.0-1.1) Eosinophils # (Auto) 0.1 x10^3/uL (0.0-0.7) Basophils # (Auto) 0.0 x10^3/uL (0.0-0.2) Platelet Estimate Adequate (ADEQUATE) Polychromasia Slight Anisocytosis Mod Prothrombin Time 12.1 SEC (11.7-14.0) Prothromb Time International Ratio 0.9 (0.8-1.1) Sodium Level 143 mmol/L (136-145) Potassium Level 3.4 mmol/L (3.5-5.1) Chloride Level 105 mmol/L (98-107) Carbon Dioxide Level 29 mmol/L (21-32) Anion Gap 9 (6-14) Blood Urea Nitrogen 8 mg/dL (7-20) Creatinine 0.6 mg/dL (0.6-1.0) Estimated GFR (Cockcroft-Gault) 105.4 BUN/Creatinine Ratio 13 (6-20) Glucose Level 135 mg/dL (70-99) Calcium Level 8.9 mg/dL (8.5-10.1) Total Bilirubin 0.2 mg/dL (0.2-1.0) Aspartate Amino Transf (AST/SGOT) 14 U/L (15-37) Alanine Aminotransferase (ALT/SGPT) 31 U/L (14-59) Alkaline Phosphatase 90 U/L (46-116) Troponin I Quantitative < 0.017 ng/mL (0.000-0.055) Total Protein 6.6 g/dL (6.4-8.2) Albumin 3.4 g/dL (3.4-5.0) Albumin/Globulin Ratio 1.1 (1.0-1.7) Lipase 149 U/L (73-393) Urine Collection Type Void Urine Color Yellow Urine Clarity Clear Urine pH 6.5 (<5.0-8.0) Urine Specific [place] 1.020 (1.000-1.030) Urine Protein Negative mg/dL (NEG-TRACE) Urine Glucose (UA) Negative mg/dL (NEG) Urine Ketones (Stick) Negative mg/dL (NEG) Urine Blood Negative (NEG) Urine Nitrite Negative (NEG) Urine Bilirubin Negative (NEG) Urine Urobilinogen Dipstick 0.2 mg/dL (0.2 mg/dL) Urine Leukocyte Esterase Negative (NEG) Urine RBC 0 /HPF (0-2) Urine WBC Rare /HPF (0-4) Urine Squamous Epithelial Cells Few /LPF Urine Bacteria Few /HPF (0-FEW) Urine Opiates Screen Neg (NEG) Urine Methadone Screen Neg (NEG) Urine Barbiturates Neg (NEG) Urine Phencyclidine Screen Neg (NEG) Urine Amphetamine/Methamphetamine Neg (NEG) Urine Benzodiazepines Screen Pos (NEG) Urine Cocaine Screen Neg (NEG) Urine Cannabinoids Screen Pos (NEG) Urine Ethyl Alcohol Neg (NEG) SARS-CoV-2 Antigen (Rapid) Negative (NEGATIVE) Test 07/04/20 12:00 Iron Level 32 ug/dL (50-170) Total Iron Binding Capacity 334 ug/dL (250-450) Iron Saturation 10 % (15-34) Vitamin B12 Level 391 pg/mL (247-911) Images Images She has had multiple abdominal and pelvis CAT scans. I reviewed these. It does look like this if she will fracture developed around March or April of this year. I do think there is new bone formation. Assessment/Plan Assessment/Plan Regarding her ischial fracture, I do think it is healing. She has had it for couple of months but cannot recall any accident or injury which triggered this. From my standpoint, she can weight-bear as tolerated, probably best if she uses a walker when up. No plans for any surgical intervention. She can follow-up in orthopedics in 4 to 6 weeks. MADDY JOHNSON II, MD Jul 04, 2020 15:54
[2020-07-04] MEDS: CIPROFLOXACIN 200MG PREMIX 100 ML IV SCH ×2 (16:17→23:52)
--- NOTE | 2020-07-04 16:57 | NUR ---
SW following. SW consulted for discharge planning. Spoke with RN and reviewed chart. Pt from home, room air, COVID pending. Pt has [employer] insurance. Consults to ortho and GI. Pt will not have surgery and will follow up with ortho out-patient per chart review. Pt NPO and working toward advancing diet. PT/OT to evaluate. SW to follow but there are no anticipated SW needs at discharge.
[2020-07-04] MEDS: traZODone 100 MG TABLET. PO SCH (20:48)
[2020-07-04] MEDS ORDERED: SIMVASTATIN 40 MG TABLET. PO SCH (21:00)
[2020-07-05 03:20] VITALS: BP 175/118
[2020-07-05] MEDS: HYDROmorphone 2 MG/ML VIAL IVP PRN ×6 (04:14→21:36)
--- NOTE | 2020-07-05 04:38 | NUR ---
Patient denies any nausea, vomiting, or loose stools this shift. Patient complains of right quadrant pain and when palpating left side of abdomen and not the right she complained of pain 8/10. No grimacing or guarding noted. While walking into patients room to administered patients requested diluadid patient sleeping and snoring. Patient currently resting and easily to arouse.
[2020-07-05 07:30] VITALS: BP 172/110
--- NOTE | 2020-07-05 08:22 | PDOC ---
PROGRESS NOTES Date of Service: DATE: 07/05/20 TIME: 08:22 Chief Complaint Chief Complaint VTE Prophylaxis Ordered VTE Prophylaxis Devices: No VTE Pharmacological Prophylaxi: No Assessment/Plan Assessment/Plan IMPRESSION: 1. Mild thickening of the rectum can be correlated with clinical examination and colonoscopy for possible underlying infectious/inflammatory process or malignancy., ACUTE DIVERTICULITIS 2. few colonic diverticula are seen. No evidence for acute diverticulitis. 3. Marked sclerosis and callus formation in the region of the right ischial tuberosity. This may represent healing insufficiency fracture although primary osseous lesion is not excluded. if further imaging is clinically indicated, MRI may provide additional details. 4. Groundglass opacities dependently represent atypical infectious/ or atelectasis of lung 5. fatty liver. 6. morbid obesity 7. gastroesophageal reflux disease, 8. chronic rectal ulcers, 9. anemia, anxiety 10.report of narcotic abuse REMOTE 11. Hx ADELFO, MDD 12. normocytic anemia 13. diarrhea 14 PUI 15. THC abuse 16. ischeal fracture 17. HYPERTENSION, [id number]. 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 //sharp cramping abdominal pain with diarrhea and vomiting started at 02:00. llq abd pain , blood in stool last week saw her GI doctor who increased her sulfasalazine medication to 4000 mg a day. she has seen some blood in her diarrhea today once. notes bruising all over her arms and on her abdomen. In ER, diarrhea stool that is sent off for fecal occult stool. denies chest pain, shortness of breath, cough, fever, dysuria symptoms, dizzi ness, headache, vision changes, numbness or tingling or focal weakness. NEEDS dpoa covid neg 07/04 vo Past Medical History Past Medical History Past Medical History: Anxiety, Diabetes-Type II Additional Past Medical Histor: ULCERATIVE COLITIS Past Surgical History: Hysterectomy Additional Past Surgical Histo: HERNIA REPAIR, FISTUAL REPAIR, RECTAL PROLAPSE REPAIR Smoking Status: Former Smoker Alcohol Use: Rarely Drug Use: None past medical history of obesity,gastroesophageal reflux disease, chronic rectal ulcers, anemia, anxiety and report of narcotic abuses in the past. fhx obesity Cardiovascular: No pertinent hx Pulmonary: No pertinent hx GI: GERD, Hemorrhoids, Irritable bowel disease Heme/Onc: No pertinent hx Hepatobiliary: No pertinent hx Psych: Anxiety Rheumatologic: No pertinent hx Infectious disease: No pertinent hx Renal/: No pertinent hx Endocrine: No pertinent hx Past Surgical History Past Surgical History: Appendectomy, Cholecystectomy, , Hysterectomy, Other Family History Family History: Depression, High Cholestrol Family History: Parent Social History Smoke: No ALCOHOL: none Drugs: None, Other Current Problem List Problem List Problems Vitals Vitals Vital Signs Date Time Temp Pulse Resp B/P (MAP) Pulse Ox O2 Delivery O2 Flow Rate FiO2 07/05/20 04:44 Room Air 07/05/20 03:20 98.6 93 16 175/118 (137) 95 98.6 Physical Exam General: Alert, Oriented X3, Cooperative, No acute distress Heart: Regular rate, Normal S1 Lungs: Clear Abdomen: Normal bowel sounds, Soft, No tenderness Extremities: No cyanosis, No edema, Normal pulses, Other (Mild edema at her ankles.) Labs LABS Laboratory Tests Test 07/04/20 12:00 Iron Level 32 ug/dL (50-170) Total Iron Binding Capacity 334 ug/dL (250-450) Iron Saturation 10 % (15-34) Vitamin B12 Level 391 pg/mL (247-911) Assessment and Plan Assessmemt and Plan Problems Medical Problems: (1) Intractable abdominal pain Status: Acute (2) Person under investigation for COVID-19 Status: Acute Comment Review of Relevant I have reviewed the following items [email or web address] (where applicable) has been applied. Labs Laboratory Tests Test 07/03/20 17:20 07/03/20 17:45 07/03/20 18:40 07/03/20 20:17 Stool Occult Blood Negative (NEG) White Blood Count 4.5 x10^3/uL (4.0-11.0) Red Blood Count 3.75 x10^6/uL (3.50-5.40) Hemoglobin 10.0 g/dL (12.0-15.5) Hematocrit 30.8 % (36.0-47.0) Mean Corpuscular Volume 82 fL (79-100) Mean Corpuscular Hemoglobin 27 pg (25-35) Mean Corpuscular Hemoglobin Concent 33 g/dL (31-37) Red Cell Distribution Width 22.8 % (11.5-14.5) Platelet Count 244 x10^3/uL (140-400) Neutrophils (%) (Auto) 78 % (31-73) Lymphocytes (%) (Auto) 10 % (24-48) Monocytes (%) (Auto) 9 % (0-9) Eosinophils (%) (Auto) 2 % (0-3) Basophils (%) (Auto) 1 % (0-3) Neutrophils # (Auto) 3.5 x10^3/uL (1.8-7.7) Lymphocytes # (Auto) 0.5 x10^3/uL (1.0-4.8) Monocytes # (Auto) 0.4 x10^3/uL (0.0-1.1) Eosinophils # (Auto) 0.1 x10^3/uL (0.0-0.7) Basophils # (Auto) 0.0 x10^3/uL (0.0-0.2) Platelet Estimate Adequate (ADEQUATE) Polychromasia Slight Anisocytosis Mod Prothrombin Time 12.1 SEC (11.7-14.0) Prothromb Time International Ratio 0.9 (0.8-1.1) Sodium Level 143 mmol/L (136-145) Potassium Level 3.4 mmol/L (3.5-5.1) Chloride Level 105 mmol/L (98-107) Carbon Dioxide Level 29 mmol/L (21-32) Anion Gap 9 (6-14) Blood Urea Nitrogen 8 mg/dL (7-20) Creatinine 0.6 mg/dL (0.6-1.0) Estimated GFR (Cockcroft-Gault) 105.4 BUN/Creatinine Ratio 13 (6-20) Glucose Level 135 mg/dL (70-99) Calcium Level 8.9 mg/dL (8.5-10.1) Total Bilirubin 0.2 mg/dL (0.2-1.0) Aspartate Amino Transf (AST/SGOT) 14 U/L (15-37) Alanine Aminotransferase (ALT/SGPT) 31 U/L (14-59) Alkaline Phosphatase 90 U/L (46-116) Troponin I Quantitative < 0.017 ng/mL (0.000-0.055) Total Protein 6.6 g/dL (6.4-8.2) Albumin 3.4 g/dL (3.4-5.0) Albumin/Globulin Ratio 1.1 (1.0-1.7) Lipase 149 U/L (73-393) Urine Collection Type Void Urine Color Yellow Urine Clarity Clear Urine pH 6.5 (<5.0-8.0) Urine Specific [place] 1.020 (1.000-1.030) Urine Protein Negative mg/dL (NEG-TRACE) Urine Glucose (UA) Negative mg/dL (NEG) Urine Ketones (Stick) Negative mg/dL (NEG) Urine Blood Negative (NEG) Urine Nitrite Negative (NEG) Urine Bilirubin Negative (NEG) Urine Urobilinogen Dipstick 0.2 mg/dL (0.2 mg/dL) Urine Leukocyte Esterase Negative (NEG) Urine RBC 0 /HPF (0-2) Urine WBC Rare /HPF (0-4) Urine Squamous Epithelial Cells Few /LPF Urine Bacteria Few /HPF (0-FEW) Urine Opiates Screen Neg (NEG) Urine Methadone Screen Neg (NEG) Urine Barbiturates Neg (NEG) Urine Phencyclidine Screen Neg (NEG) Urine Amphetamine/Methamphetamine Neg (NEG) Urine Benzodiazepines Screen Pos (NEG) Urine Cocaine Screen Neg (NEG) Urine Cannabinoids Screen Pos (NEG) Urine Ethyl Alcohol Neg (NEG) Coronavirus (PCR) Not detected (Not Detected) SARS-CoV-2 Antigen (Rapid) Negative (NEGATIVE) Test 07/04/20 12:00 Iron Level 32 ug/dL (50-170) Total Iron Binding Capacity 334 ug/dL (250-450) Iron Saturation 10 % (15-34) Vitamin B12 Level 391 pg/mL (247-911) Laboratory Tests Test 07/04/20 12:00 Iron Level 32 ug/dL (50-170) Total Iron Binding Capacity 334 ug/dL (250-450) Iron Saturation 10 % (15-34) Vitamin B12 Level 391 pg/mL (247-911) Medications Current Medications Sodium Chloride 1,000 ml @ 1,000 mls/hr Q1H IV Last administered on 07/03/20at 17:52; Start 07/03/20 at 17:12; Stop 07/03/20 at 18:11; Status DC Ondansetron HCl (Zofran) 4 mg 1X ONCE IVP Last administered on 07/03/20at 17:53; Start 07/03/20 at 17:15; Stop 07/03/20 at 17:17; Status DC Fentanyl Citrate (Fentanyl 2ml Vial) 50 mcg 1X ONCE IVP Last administered on 07/03/20at 17:53; Start 07/03/20 at 17:30; Stop 07/03/20 at 17:31; Status DC Iohexol (Omnipaque 300 Mg/ml) 75 ml 1X ONCE IV Last administered on 07/03/20at 18:34; Start 07/03/20 at 18:30; Stop 07/03/20 at 18:31; Status DC Info (CONTRAST GIVEN -- Rx MONITORING) 1 each PRN DAILY PRN MC SEE COMMENTS; Start 07/03/20 at 18:45; Stop 07/05/20 at 18:44 Fentanyl Citrate (Fentanyl 2ml Vial) 50 mcg 1X ONCE IVP Last administered on 07/03/20at 19:15; Start 07/03/20 at 19:00; Stop 07/03/20 at 19:01; Status DC Ondansetron HCl (Zofran) 4 mg PRN Q8HRS PRN IV NAUSEA/VOMITING; Start 07/03/20 at 19:45; Stop 07/04/20 at 16:52; Status DC Fentanyl Citrate (Fentanyl 2ml Vial) 50 mcg PRN Q1HR PRN IV PAIN Last administered on 07/03/20at 23:54; Start 07/03/20 at 19:45; Stop 07/04/20 at 19:44; Status DC Sodium Chloride 1,000 ml @ 100 mls/hr Q10H IV Last administered on 07/04/20at 16:18; Start 07/03/20 at 19:35; Stop 07/04/20 at 19:34; Status DC Acetaminophen/ Hydrocodone Bitart (Lortab 5/325) 1 tab PRN Q6HRS PRN PO MODERATE PAIN 4-6; Start 07/04/20 at 00:15 Simvastatin (Zocor) 40 mg QHS PO ; Start 07/04/20 at 21:00 Trazodone HCl (Desyrel) 100 mg HS PO ; Start 07/04/20 at 21:00 Duloxetine HCl (Cymbalta) 120 mg DAILY PO Last administered on 07/04/20at 08:48; Start 07/04/20 at 09:00 Pantoprazole Sodium (Protonix) 40 mg DAILYAC PO Last administered on 07/04/20at 08:48; Start 07/04/20 at 07:30 Ondansetron HCl (Zofran Odt) 4 mg PRN Q8HRS PRN PO NAUSEA/VOMITING 1ST CHOICE; Start 07/04/20 at 00:30 Alprazolam (Xanax) 0.25 mg PRN Q8HRS PRN PO ANXIETY / AGITATION; Start 07/04/20 at 00:30 Hydromorphone HCl (Dilaudid) 0.5 mg PRN Q3HRS PRN IVP SEVERE PAIN 7-10 Last administered on 07/05/20at 04:14; Start 07/04/20 at 00:30 Hydralazine HCl (Apresoline Inj) 10 mg PRN Q4HRS PRN IVP ELEVATED BP, SEE COMMENTS Last administered on 07/04/20at 20:34; Start 07/04/20 at 00:30 Ondansetron HCl (Zofran) 4 mg PRN Q6HRS PRN IVP NAUSEA/VOMITING Last administered on 07/04/20at 09:40; Start 07/04/20 at 09:30 Ciprofloxacin/ Dextrose 100 ml @ 100 mls/hr Q12HR IV Last administered on 07/04/20at 23:52; Start 07/04/20 at 15:00 Metronidazole 100 ml @ 100 mls/hr Q12HR IV Last administered on 07/04/20at 22:43; Start 07/04/20 at 15:00 Active Scripts Active Gilliam 5-325 Tablet (Acetaminophen/Hydrocodone Bitart) 1 Each Tablet 1 Tab PO PRN Q6HRS PRN 10 Days Zofran (Ondansetron Hcl) 4 Mg Tablet 1 Tab PO Q8HRS PRN Reported Trazodone Hcl 100 Mg Tablet 100 Mg PO HS Xanax Xr (Alprazolam) 1 Mg Tab.er.24h 2 Mg PO DAILY Cymbalta (Duloxetine Hcl) 60 Mg Capsule.dr 120 Mg PO DAILY Zocor (Simvastatin) 5 Mg Tablet 40 Mg PO DAILY Prevacid 24HR (Lansoprazole) 15 Mg Capsule.dr 30 Mg PO DAILY Vitals/I & O Vital Sign - Last 24 Hours 07/04/20 07/04/20 07/04/20 07/04/20 09:03 09:04 09:34 11:34 Temp 98.2 98.2 Pulse 112 74 Resp 18 18 18 B/P (MAP) 165/102 163/92 (115) Pulse Ox 90 90 93 O2 Delivery Room Air Room Air Room Air 07/04/20 07/04/20 07/04/20 07/04/20 13:02 13:32 15:00 19:50 Temp 97.6 97.6 Pulse 80 Resp 18 18 B/P (MAP) 196/113 (140) Pulse Ox 93 93 95 O2 Delivery Room Air Room Air Room Air Room Air 07/04/20 07/04/20 07/04/20 07/04/20 19:50 20:34 20:35 21:06 Temp 98.4 98.4 Pulse 84 84 Resp 16 B/P (MAP) 187/119 (141) 187/119 Pulse Ox 96 96 O2 Delivery Room Air Room Air Room Air 07/04/20 07/04/20 07/05/20 07/05/20 22:58 23:52 00:22 03:20 Temp 97.7 98.6 97.7 98.6 Pulse 86 93 Resp 18 16 B/P (MAP) 164/97 (119) 175/118 (137) Pulse Ox 94 94 94 95 O2 Delivery Room Air Room Air Room Air Room Air 07/05/20 07/05/20 04:14 04:44 O2 Delivery Room Air Room Air Intake and Output 07/04/20 07/04/20 07/05/20 15:00 23:00 07:00 Intake Total 1800 ml 200 ml Output Total 1200 ml 100 ml Balance 600 ml 100 ml Justicifation of Admission Dx: Justifications for Admission: Justification of Admission Dx: Yes DEISY VUONG MD Jul 05, 2020 08:22
[2020-07-05] MEDS: DULoxetine HCL 30 MG CAPSULE.DR PO SCH (08:23)
[2020-07-05] MEDS: PANTOPRAZOLE 40 MG TABLET.DR. PO SCH (08:23)
[2020-07-05] MEDS ORDERED: POTASSIUM CHLORIDE 10MEQ 100 ML IV SCH ×2 (08:45)
[2020-07-05] MEDS ORDERED: POTASSIUM BICARB 20 MEQ EFFERVESCENT TABLET. PO SCH (08:45)
[2020-07-05] MEDS ORDERED: MAGNESIUM SULFATE 2GM 50 ML IV SCH (08:45)
[2020-07-05] MEDS ORDERED: POTASSIUM BICARB 20 MEQ EFFERVESCENT TABLET. FT ONE (08:45)
[2020-07-05] MEDS ORDERED: ELECTROLYTE (NON-ICU) PROTOCOL MC PRN (08:45)
[2020-07-05] MEDS ORDERED: MAGNESIUM OXIDE 400 MG TABLET PO SCH (09:00)
[2020-07-05] MEDS ORDERED: POTASSIUM & SODIUM PHOSPHATES PACKET. PO SCH (09:00)
[2020-07-05] MEDS: amLODIPine BESYLATE 5 MG TABLET PO SCH ×2 (10:22→21:35)
[2020-07-05] MEDS: CIPROFLOXACIN 200MG PREMIX 100 ML IV SCH (10:23)
[2020-07-05] MEDS: ALPRAZolam 0.25 MG TABLET PO PRN (10:27)
[2020-07-05 10:49] VITALS: BP 153/102
[2020-07-05 10:58] LABS: BASO % 0 % (0-3); EOS % 1 % (0-3); HEMATOCRIT 32.3 % (36.0-47.0); HEMOGLOBIN 10.5 g/dL (12.0-15.5); LYMPH # 0.3 x10^3/uL (1.0-4.8); LYMPH % 5 % (24-48); MEAN CORPUSCULAR HEMOGLOBIN 27 pg (25-35); MEAN CORPUSCULAR HGB CONC 33 g/dL (31-37); MEAN CORPUSCULAR VOLUME 82 fL (79-100); MONO # 0.4 x10^3/uL (0.0-1.1); MONO % 6 % (0-9); NEUT # 5.6 x10^3/uL (1.8-7.7); NEUT % 88 % (31-73); PLATELET COUNT 266 x10^3/uL (140-400); RED BLOOD COUNT 3.95 x10^6/uL (3.50-5.40); RED CELL DISTRIBUTION WIDTH 22.5 % (11.5-14.5); WHITE BLOOD COUNT 6.4 x10^3/uL (4.0-11.0)
[2020-07-05 11:15] LABS: ALBUMIN 3.3 g/dL (3.4-5.0); CALCIUM 9.1 mg/dL (8.5-10.1); CREATININE 0.7 mg/dL (0.6-1.0); GFR 88.2; POTASSIUM 3.5 mmol/L (3.5-5.1); TOTAL BILIRUBIN 0.3 mg/dL (0.2-1.0); TOTAL PROTEIN 6.6 g/dL (6.4-8.2)
--- NOTE | 2020-07-05 11:30 | PDOC2 ---
OMAR MCCARTHY PATTERN PAINTER 07/05/20 1130: CARDIAC CONSULT DATE OF CONSULT Date of Consult DATE: 07/05/20 TIME: 11:13 REASON FOR CONSULT Reason for Consult: Uncontrolled HTN REFERRING PHYSICIAN Referring Physician: Fullbright SOURCE Source: Chart review, Patient HISTORY OF PRESENT ILLNESS HISTORY OF PRESENT ILLNESS This is a pleasant 50 yo female admitted for abdominal pain which appears to be chronic for her. Also complains of nausea/vomiting and diarrhea. She does have hx of UC. She does known that she has HTN and has not been on medications before. She has never been told that she has DM. SHe does take zocor for her HLP. She had a sleep study 2 yrs ago and was told no DARWIN. Also she stayed the same wt in the last yr. Denies any chest pain, SOA. She has quit smoking in 2018 and uses marijuana as her boss told her that it may help her abd discomfort. No routine NSAID use but she does take anxiety meds and opioids. No cardiac hx. PAST MEDICAL HISTORY Cardiovascular: Hyperlipidemia Pulmonary: No pertinent hx CENTRAL NERVOUS SYSTEM: Other (No pertinent history) GI: GERD, Inflam bowel disease (UC), Other (rectal ulcer) Heme/Onc: Anemia NOS Hepatobiliary: Cholelithiasis Psych: Anxiety, Depression Musculoskeletal: Osteoarthritis, Other (chronic opioid use) ENT: No pertinent hx Renal/: UTI Endocrine: No pertinent hx Dermatology: No pertinent hx PAST SURGICAL HISTORY Past Surgical History: Appendectomy, Cholecystectomy, Hernia Repair, Hysterectomy, Other (rectal surgery; colon vaginal fistula repair) SOCIAL HISTORY Smoke: Quit (12/2017 40pk yr) ALCOHOL: occassional Drugs: Marijuana CURRENT MEDICATIONS CURRENT MEDICATIONS Current Medications Medications (Trade) Dose Ordered Sig/Ga Route PRN Reason Start Time Stop Time Status Last Admin Dose Admin Ciprofloxacin/ Dextrose 100 ml @ 100 mls/hr Q12HR IV 07/04/20 15:00 07/05/20 10:23 Metronidazole 100 ml @ 100 mls/hr Q12HR IV 07/04/20 15:00 07/04/20 22:43 Amlodipine Besylate (Norvasc) 5 mg BID PO 07/05/20 09:00 07/05/20 10:22 ALLERGIES ALLERGIES: Coded Allergies: cephalexin (Verified Allergy, Intermediate, rash, red ears, 08/29/18) ketorolac (Verified Allergy, Intermediate, HIVES, 11/22/18) prochlorperazine (Verified Allergy, Intermediate, 11/24/16) ROS Review of System 14 point ROS evaluated with pertinent positives noted per HPI PHYSICAL EXAM General: Alert, Oriented X3, Cooperative, No acute distress HEENT: Atraumatic, Mucous membr. moist/pink Lungs: Clear to auscultation, Normal air movement Heart: Regular rate (no tele), Normal S1, Normal S2, No murmurs Abdomen: Soft, No tenderness, Other (truncal obesity) Extremities: No cyanosis, No edema Skin: No breakdown, No significant lesion Neuro: Normal speech, Sensation intact Psych/Mental Status: Mental status NL, Mood NL MUSCULOSKELETAL: Osteoarthritic changes both hands VITALS/I&O VITALS/I&O: Vital Signs Date Time Temp Pulse Resp B/P (MAP) Pulse Ox O2 Delivery O2 Flow Rate FiO2 07/05/20 10:49 99.2 99 16 153/102 (119) 96 Room Air 99.2 I & O 07/04/20 07/04/20 07/05/20 15:00 23:00 07:00 Intake Total 1800 ml 200 ml Output Total 1200 ml 100 ml Balance 600 ml 100 ml LABS Lab: Laboratory Tests Test 07/04/20 12:00 07/05/20 10:50 Iron Level 32 ug/dL (50-170) L Total Iron Binding Capacity 334 ug/dL (250-450) Iron Saturation 10 % (15-34) L Vitamin B12 Level 391 pg/mL (247-911) White Blood Count 6.4 x10^3/uL (4.0-11.0) Red Blood Count 3.95 x10^6/uL (3.50-5.40) Hemoglobin 10.5 g/dL (12.0-15.5) L Hematocrit 32.3 % (36.0-47.0) L Mean Corpuscular Volume 82 fL (79-100) Mean Corpuscular Hemoglobin 27 pg (25-35) Mean Corpuscular Hemoglobin Concent 33 g/dL (31-37) Red Cell Distribution Width 22.5 % (11.5-14.5) H Platelet Count 266 x10^3/uL (140-400) Neutrophils (%) (Auto) 88 % (31-73) H Lymphocytes (%) (Auto) 5 % (24-48) L Monocytes (%) (Auto) 6 % (0-9) Eosinophils (%) (Auto) 1 % (0-3) Basophils (%) (Auto) 0 % (0-3) Neutrophils # (Auto) 5.6 x10^3/uL (1.8-7.7) Lymphocytes # (Auto) 0.3 x10^3/uL (1.0-4.8) L Monocytes # (Auto) 0.4 x10^3/uL (0.0-1.1) Eosinophils # (Auto) 0.0 x10^3/uL (0.0-0.7) Basophils # (Auto) 0.0 x10^3/uL (0.0-0.2) Platelet Estimate Pending Laboratory Tests 07/05/20 10:50 ASSESSMENT/PLAN ASSESSMENT/PLAN 1. Abdominal pain with n/v/d: Possible colitis with hx of fistula and UC. GI following 2. HTN urgency: no home BP meds. Still labile 3. DM2 vs metabolic syndrome: defer to PCP 4. Morbid obesity 5. Substance abuse: marijuana 6. HLP Recommendations 1. Follow GI recommendation 2. TSH, lipids and A1C. TTE pending today. Currently on norvasc. Start on ACEi/HCTZ combo. DC zocor and change to lipitor 3. Lifestyle modification, wt loss, manager cost consult, DASH diet. HBPM 4. Secondary prevention measures. ECASA 81 mg if OK with GI for primary prevention. 5. Follow up with Dr. Villeda on August 15 at 1030 AM GERHARD VILLEDA MD 07/06/20 1415: CARDIAC CONSULT ASSESSMENT/PLAN ASSESSMENT/PLAN Patient seen and examined 07/05/20. Agree with CLUB CAR ATTENDANT's assessment and plan. BP elevated. Start lisinopril and HCTZ for better control 2D echo showed normal LVF Continue management of abd pain and possible colitis per GI team Follow up with our office as scheduled Thank you for your consultation OMAR MCCARTHY APRN Jul 05, 2020 11:30 GERHARD VILLEDA MD Jul 06, 2020 14:15
--- NOTE | 2020-07-05 11:42 | CARD ---
MR#: [id number] Date of Study: 07/05/2020 Ordering Physician: DEISY VUONG, Referring Physician: DEISY VUONG, Tech: Giselle Carr RDCS APPROVED REPORT EXAM: Two-dimensional and M-mode echocardiogram with Doppler and color Doppler. Other Information Quality : Good INDICATION Hypertension/HCVD 2D DIMENSIONS Left Atrium(2D)3.1 (1.6-4.0cm)IVSd1.2 (0.7-1.1cm) Aortic Root(2D)2.7 (2.0-3.7cm)LVDd4.5 (3.9-5.9cm) LVOT Diameter2.0 (1.8-2.4cm)PWd1.2 (0.7-1.1cm) LVDs3.2 (2.5-4.0cm)FS (%) 29.3 % SV50.8 mlLVEF(%)56.3 (>50%) Aortic Valve AoV Peak Mayank.147.5cm/sAoV VTI27.1cm AO Peak GR.8.7mmHgLVOT Peak Mayank.144.4cm/s AO Mean GR.5mmHgAVA (VMAX)3.10cm2 SAVANNAH (VTI)3.20cm2 Mitral Valve MV E Ighcsltn82.7cm/sMV DECEL [id number] MV A Fzmzgpln919.3cm/sE/A Ratio0.7 Pulmonary Vein S1 Luoufcub59.3cm/sD2 Lxhuhajs28.9cm/s LEFT VENTRICLE The left ventricle is normal size. There is mild concentric left ventricular hypertrophy. The left ve ntricular systolic function is normal and the ejection fraction is within normal range. The Ejection Fraction is 55-60%. There is normal LV segmental wall motion. Transmitral Doppler flow pattern is Gra de I-abnormal relaxation pattern. RIGHT VENTRICLE The right ventricle is normal size. The right ventricular systolic function is normal. ATRIA The left atrium size is normal. The right atrium size is normal. The interatrial septum is intact wit h no evidence for an atrial septal defect or patent foramen ovale as noted on 2-D or Doppler imaging. AORTIC VALVE The aortic valve is calcified but opens well. Doppler and Color Flow revealed no significant aortic r egurgitation. There is no significant aortic valvular stenosis. MITRAL VALVE The mitral valve is calcified but opens well. There is no evidence of mitral valve prolapse. There is no mitral valve stenosis. Doppler and Color Flow revealed no mitral valve regurgitation noted. TRICUSPID VALVE The tricuspid valve is normal in structure and function. Doppler and Color Flow revealed no tricuspid valve regurgitation noted. There is no tricuspid valve stenosis. PULMONIC VALVE The pulmonic valve is not well visualized. Doppler and Color Flow revealed no pulmonic valvular regur gitation. There is no pulmonic valvular stenosis. GREAT VESSELS The aortic root is normal in size. The ascending aorta is moderately dilated at 3.8 cm. The IVC was n ot visualized. PERICARDIAL EFFUSION There is no evidence of significant pericardial effusion. Critical Notification Critical Value: No <Conclusion> There is mild concentric left ventricular hypertrophy. The left ventricular systolic function is normal and the ejection fraction is within normal range. Th e Ejection Fraction is 55-60%. There is normal LV segmental wall motion. The ascending aorta is moderately dilated at 3.8 cm. Signed by : Trevon Armijo, Electronically Approved : 07/05/2020 11:41:56
[2020-07-05 11:59] LABS: CHOLESTEROL/HDL RATIO 6.9
--- NOTE | 2020-07-05 12:16 | PDOC ---
Date of Service: DATE: 07/05/20 TIME: 12:13 Subjective: Subjective: No vomiting or diarrhea, pain improved. Objective: Vital Signs: Vital Signs Date Time Temp Pulse Resp B/P (MAP) Pulse Ox O2 Delivery O2 Flow Rate FiO2 07/05/20 11:39 Room Air 07/05/20 10:49 99.2 99 16 153/102 (119) 96 99.2 Labs: Laboratory Tests Test 07/05/20 10:50 07/05/20 11:15 White Blood Count 6.4 x10^3/uL Red Blood Count 3.95 x10^6/uL Hemoglobin 10.5 g/dL Hematocrit 32.3 % Mean Corpuscular Volume 82 fL Mean Corpuscular Hemoglobin 27 pg Mean Corpuscular Hemoglobin Concent 33 g/dL Red Cell Distribution Width 22.5 % Platelet Count 266 x10^3/uL Neutrophils (%) (Auto) 88 % Lymphocytes (%) (Auto) 5 % Monocytes (%) (Auto) 6 % Eosinophils (%) (Auto) 1 % Basophils (%) (Auto) 0 % Neutrophils # (Auto) 5.6 x10^3/uL Lymphocytes # (Auto) 0.3 x10^3/uL Monocytes # (Auto) 0.4 x10^3/uL Eosinophils # (Auto) 0.0 x10^3/uL Basophils # (Auto) 0.0 x10^3/uL Platelet Estimate Pending Sodium Level 138 mmol/L Potassium Level 3.5 mmol/L Chloride Level 102 mmol/L Carbon Dioxide Level 26 mmol/L Anion Gap 10 Blood Urea Nitrogen 5 mg/dL Creatinine 0.7 mg/dL Estimated GFR (Cockcroft-Gault) 88.2 BUN/Creatinine Ratio 7 Glucose Level 133 mg/dL Calcium Level 9.1 mg/dL Total Bilirubin 0.3 mg/dL Aspartate Amino Transf (AST/SGOT) 18 U/L Alanine Aminotransferase (ALT/SGPT) 35 U/L Alkaline Phosphatase 104 U/L Total Protein 6.6 g/dL Albumin 3.3 g/dL Albumin/Globulin Ratio 1.0 Triglycerides Level 170 mg/dL Cholesterol Level 276 mg/dL LDL Cholesterol, Calculated 202 mg/dL VLDL Cholesterol, Calculated 34 mg/dL Non-HDL Cholesterol Calculated 236 mg/dL HDL Cholesterol 40 mg/dL Cholesterol/HDL Ratio 6.9 Magnesium Level 2.0 mg/dL Thyroid Stimulating Hormone (TSH) 1.020 uIU/mL PE: GEN: NAD LUNGS: CTAB HEART: RRR ABD: NABS, S/ND/NT NEURO/PSYCH: A & O 3 A/P: Vomiting, diarrhea, abd pain - improved Chronic anemia, iron deficiency - 'scopes UTD GERD - on PPI H/o rectal ulcer, diverticulosis - mild rectal thickening noted on current/past CT +cannabinoids Chronic pain -- Improved w/ empiric antibiotics for possible diverticulitis. ADAT, transition to PO atbx, consider addition of PO iron, DC per primary. Justicifation of Admission Dx: Justifications for Admission: Justification of Admission Dx: Yes ILYA CONNOLLY Jul 05, 2020 12:16
[2020-07-05 13:07] LABS: % ATYL 1 % (0-0); % BANDS 1 % (0-9); % EOS 3 % (0-5); % LYMPHS 3 % (24-48); % MONOS 3 % (0-10); % SEGS 89 % (35-66)
[2020-07-05 13:08] LABS: ANISOCYTOSIS MOD; POLYCHROMASIA SLIGHT
[2020-07-05 13:09] LABS: OVALOCYTES MOD; PLT ESTIMATE ADEQUATE (ADEQUATE); TEAR DROP CELLS FEW
[2020-07-05] MEDS ORDERED: POTASSIUM CHLORIDE 20 MEQ TABLET.ER. PO ONE (13:30)
[2020-07-05] MEDS ORDERED: hydroCHLOROthiazide 12.5 MG CAPSULE PO ONE (13:30)
[2020-07-05 15:00] VITALS: BP 142/106
--- NOTE | 2020-07-05 15:02 | NUR ---
SW following. Spoke with RN and reviewed chart. Pt from home, room air. CM informed this SW that pt is [id number]. Spoke with pt who declined hospital to hospital transfer stating she would discharge home tomorrow, 07/06. Pt informed by this SW that she may have a bill for this hospitalization if insurance denies her stay and pt still declined to transfer to in-network hospital. Pt declined SW needs at discharge. SW did add pt to weekend discharge list but there should be no SW needs. RN notified. Dr. Neely notified. Rotor Coil Taper Carlton notified. No further SW needs.
[2020-07-05] MEDS: LISINOPRIL 20 MG TABLET PO SCH (15:13)
[2020-07-05 19:00] VITALS: BP 132/101
[2020-07-05] MEDS ORDERED: ATORVASTATIN CALCIUM 40 MG TABLET. PO SCH (21:00)
[2020-07-05] MEDS: CIPROFLOXACIN HCL 250 MG TABLET. PO SCH (21:35)
[2020-07-05] MEDS: metroNIDAZOLE 500 MG TABLET PO SCH (21:35)
[2020-07-05] MEDS: traZODone 100 MG TABLET. PO SCH (21:36)
[2020-07-05 23:00] VITALS: BP 136/99
[2020-07-06 00:08] LABS: HEMOGLOBIN A1C 6.1 % (4.8-5.6)
[2020-07-06 03:00] VITALS: BP 117/74
[2020-07-06] MEDS: HYDROmorphone 2 MG/ML VIAL IVP PRN ×3 (03:08→11:04)
[2020-07-06 04:46] LABS: CALCIUM 9.2 mg/dL (8.5-10.1); CREATININE 0.7 mg/dL (0.6-1.0); GFR 88.2; PHOSPHORUS 4.2 mg/dL (2.6-4.7); POTASSIUM 3.2 mmol/L (3.5-5.1)
[2020-07-06] MEDS: PANTOPRAZOLE 40 MG TABLET.DR. PO SCH (07:36)
[2020-07-06 07:59] VITALS: BP 103/71
[2020-07-06] MEDS: DULoxetine HCL 30 MG CAPSULE.DR PO SCH (08:33)
[2020-07-06] MEDS: CIPROFLOXACIN HCL 250 MG TABLET. PO SCH (08:33)
[2020-07-06] MEDS: metroNIDAZOLE 500 MG TABLET PO SCH (08:33)
[2020-07-06] MEDS: amLODIPine BESYLATE 5 MG TABLET PO SCH (08:36)
[2020-07-06] MEDS: LISINOPRIL 20 MG TABLET PO SCH (08:37)
[2020-07-06] MEDS: ALPRAZolam 0.25 MG TABLET PO PRN (08:41)
[2020-07-06] MEDS ORDERED: hydroCHLOROthiazide 12.5 MG CAPSULE PO SCH (09:00)
[2020-07-06 11:59] VITALS: BP 132/93
[2020-07-06] MEDS ORDERED: POTASSIUM CHLORIDE 20 MEQ TABLET.ER. PO ONE (12:00)
[2020-07-06] MEDS ORDERED: CIPR250T30 PO (12:07)
[2020-07-06] MEDS ORDERED: METR500T PO (12:07)
--- NOTE | 2020-07-06 12:08 | DISCH ---
DISCHARGE INSTRUCTIONS Condition on Discharge Condition on Discharge: Stable Activity After Discharge Activity Instructions for Disc: Activity as tolerated Lifting Instructions after Dis: No heavy lifting Driving Instructions after Dis: Do not drive today Diet after Discharge Diet after Discharge: Regular Wound Incision Care Wound/Incision Care: No wound care needed Checks after Discharge DC Comment: Will need to complete 3 days of ciprofloxacin and Flagyl Follow-Up Follow up with: PCP within 1 week of discharge Follow Up With: Gastroenterology regarding your diverticulitis Treatment/Equipment after DC Adaptive Equipment Issued: None ADAM LOWERY MD Jul 06, 2020 12:08
--- NOTE | 2020-07-06 15:34 | NUR ---
RN in room to review discharge instructions. pt inquired about new BP meds which had not been ordered but had been mentioned in a note from Yasemin Anglin. RN pg'd cardiology. Dr. Dowd returned call and ordered no new BP meds until she follows up in their office and started her on 20mg Lipitor with instructions to stop taking Zocor. When RN returned to room to tell pt this info, she had already left and her room was being cleaned. RN called Lela w/ no answer. RN spoke w/ her father, emergency contact, Thomas, and relayed information to him regarding follow up and medication changes. Lipitor called to pt pharmacy
[2020-07-06] MEDS ORDERED: LACTOBACILLUS RHAMNOSUS GG 1 CAPSULE. PO SCH (21:00)
--- NOTE | 2020-07-09 08:39 | PDOC3 ---
[facility]-Discharge Summary Date of Admission: Date of Admission: Jul 04, 2020 Date of Discharge: Date of Discharge: Jul 06, 2020 Admission Diagnosis: Admitting Diagnosis: 1. Mild thickening of the rectum can be correlated with clinical examination and colonoscopy for possible underlying infectious/inflammatory process or malignancy. 2. few colonic diverticula are seen. No evidence for acute diverticulitis. 3. Marked sclerosis and callus formation in the region of the right ischial tuberosity. This may represent healing insufficiency fracture although primary osseous lesion is not excluded. if further imaging is clinically indicated, MRI may provide additional details. 4. Groundglass opacities dependently represent atypical infectious/ or atelectasis of lung 5. fatty liver. 6. morbid obesity 7. gastroesophageal reflux disease, 8. chronic rectal ulcers, 9. anemia, anxiety 10.report of narcotic abuse REMOTE 11. Hx ADELFO, MDD 12. normocytic anemia 13. diarrhea 14 PUI Discharge Diagnosis: Discharge Diagnosis: 1. Mild thickening of the rectum can be correlated with clinical examination and colonoscopy for possible underlying infectious/inflammatory process or malignancy. 2. few colonic diverticula are seen. No evidence for acute diverticulitis. 3. Marked sclerosis and callus formation in the region of the right ischial tuberosity. This may represent healing insufficiency fracture although primary osseous lesion is not excluded. if further imaging is clinically indicated, MRI may provide additional details. 4. Groundglass opacities dependently represent atypical infectious/ or atelectasis of lung 5. fatty liver. 6. morbid obesity 7. gastroesophageal reflux disease, 8. chronic rectal ulcers, 9. anemia, anxiety 10.report of narcotic abuse REMOTE 11. Hx ADELFO, MDD 12. normocytic anemia 13. diarrhea 14 PUI Consults: Consults: GI Orthopedic Surgery Cardiology Hospital Course: Hospital Course: Suspected acute colitis 50 year old female who presented with chronic abdominal pain. //sharp cramping abdominal pain with diarrhea and vomiting started at 02:00. llq abd pain , blood in stool last week saw her GI doctor who increased her sulfasalazine medication to 4000 mg a day. she has seen some blood in her diarrhea today once. notes bruising all over her arms and on her abdomen. In ER, diarrhea stool that is sent off for fecal occult stool. Admitted for further care and evaluation. She was cleared by cardiology and to be continued with HIMANSHU/HCTZ. Ortho recommended no surgery. GI recommended to continue PO Abx. She will be given 3 more days of ciprofloxacin and FLagyl. Patient's ABD pain improved and she was tolerated diet by day time of discharge. The rest of her hospital course was uneventful Disposition: Disposition/Orders: D/C to Home Activity: Activity: Resume previous activity Diet: Diet: Regular Medications: Home Meds Active Scripts Metronidazole (FLAGYL) 500 Mg Tablet, 500 MG PO Q12HR for Diverticulitis for 3 Days, #6 TAB Prov:ADAM LOWERY MD 07/06/20 Ciprofloxacin Hcl (CIPRO) 250 Mg Tablet, 250 MG PO BID for Diverticulitis for 3 Days, #6 TAB Prov:ADAM LOWERY MD 07/06/20 Ondansetron Hcl (ZOFRAN) 4 Mg Tablet, 1 TAB PO Q8HRS PRN for NAUSEA, #20 TAB Prov:FLORIDALMA DESAI DO 12/20/16 Reported Medications Trazodone Hcl (TRAZODONE HCL) 100 Mg Tablet, 100 MG PO HS for insomnia, TAB 07/04/20 Alprazolam (XANAX XR) 1 Mg Tab.er.24h, 2 MG PO DAILY for anxiety/panic attacks, TAB 0 Refills 08/27/18 Duloxetine Hcl (CYMBALTA) 60 Mg Capsule.dr, 120 MG PO DAILY, CAP 06/28/16 Simvastatin (ZOCOR) 5 Mg Tablet, 40 MG PO DAILY for FOR CHOLESTEROL, #30 TAB 0 Refills 05/12/14 Lansoprazole (PREVACID 24HR) 15 Mg Capsule.dr, 30 MG PO DAILY, CAP 05/12/14 Discontinued Scripts Hydrocodone/Apap 5-325 (NORCO 5-325 TABLET) 1 Each Tablet, 1 TAB PO PRN Q6HRS PRN for PAIN for 10 Days, #14 TAB 0 Refills Prov:BARB ROSALES I DO 05/02/20 Scheduled Alprazolam (Xanax Xr), 2 MG PO DAILY, (Reported) Ciprofloxacin Hcl (Cipro), 250 MG PO BID Duloxetine Hcl (Cymbalta), 120 MG PO DAILY, (Reported) Lansoprazole (Prevacid 24HR), 30 MG PO DAILY, (Reported) Metronidazole (Flagyl), 500 MG PO Q12HR Simvastatin (Zocor), 40 MG PO DAILY, (Reported) Trazodone Hcl (Trazodone Hcl), 100 MG PO HS, (Reported) Scheduled PRN Ondansetron Hcl (Zofran), 1 TAB PO Q8HRS PRN for NAUSEA Discontinued Medications Hydrocodone/Apap 5-325 ([place] 5-325 Tablet), 1 TAB PO PRN Q6HRS PRN for PAIN Total Time: Total Time: Total time spent was 28 minutes in preparing scripts, discharge planning with SW and RN, and preparing this discharge summary. Justicifation of Admission Dx: Justifications for Admission: Justification of Admission Dx: Yes ADAM LOWERY MD Jul 09, 2020 08:39
== END 2020-07-06 15:00 | disposition home or self-care (01) | DRG 392 ==
LOC: ER 17:07 → ED HOLD 19:35 → 6 SOUTH 22:05 → 5 NORTH 07-05 07:51
PROVIDERS: ADMIT Family Medicine; ATTEND Family Medicine
DX: K52.9 Noninfective gastroenteritis and colitis, unspecified (principal); J98.11 Atelectasis; K62.6 Ulcer of anus and rectum; Z68.42 Body mass index [BMI] 45.0-49.9, adult; Z20.828 Contact with and (suspected) exposure to other viral communicable diseases; D50.9 Iron deficiency anemia, unspecified; E11.9 Type 2 diabetes mellitus without complications; E66.01 Morbid (severe) obesity due to excess calories; E78.5 Hyperlipidemia, unspecified; E87.6 Hypokalemia; F11.10 Opioid abuse, uncomplicated; F12.10 Cannabis abuse, uncomplicated; F32.9 Major depressive disorder, single episode, unspecified; G89.29 Other chronic pain; I10 Essential (primary) hypertension; I16.0 Hypertensive urgency; K21.9 Gastro-esophageal reflux disease without esophagitis; M19.90 Unspecified osteoarthritis, unspecified site; F41.1 Generalized anxiety disorder; K76.0 Fatty (change of) liver, not elsewhere classified; Z79.891 Long term (current) use of opiate analgesic; Z79.899 Other long term (current) drug therapy; Z81.8 Family history of other mental and behavioral disorders; Z87.891 Personal history of nicotine dependence; Z90.710 Acquired absence of both cervix and uterus; Z90.49 Acquired absence of other specified parts of digestive tract; Z88.8 Allergy status to other drugs, medicaments and biological substances; K57.30 Diverticulosis of large intestine without perforation or abscess without bleeding
CPT/HCPCS: 36415; 71045; 74177; 80048; 80053; 80061; 80307; 81001; 82274; 82607; 83036; 83540; 83550; 83690; 83735; 84100; 84443; 84484; 85007; 85025; 85610; 87426; 93005; 93306; 96361; 96374; 96375; 96376; J0360; J0744; J1170; J2405; J3010; J3490; J7030; Q9967; 99291-25; G0378; U0003-CS

== ENCOUNTER 2020-07-14 17:12 | Emergency (ER) | payer OTHER ==
[~2020-07-14] VITALS: Ht 162.6 cm; Wt 109.0 kg
[~2020-07-14 17:12] MED LIST changes: +CIPR250T30 PO; +TRAZ-123 PO
[2020-07-14 17:42] LABS: BILIRUBIN,URINE NEGATIVE (NEG); CLARITY,URINE CLEAR; COLOR,URINE YELLOW; NITRITE,URINE NEGATIVE (NEG); PH,URINE 6.5 (<5.0-8.0); PROTEIN,URINE NEGATIVE (NEG-TRACE); UROBILINOGEN,URINE 0.2 mg/dL (0.2 mg/dL)
[2020-07-14 17:47] LABS: BACTERIA,URINE FEW /HPF (0-FEW); SQUAMOUS EPITHELIAL CELL,UR FEW /LPF
[2020-07-14 17:48] LABS: RBC,URINE 0 /HPF (0-2)
[2020-07-14 17:49] LABS: WBC,URINE RARE /HPF (0-4)
[2020-07-14] MEDS ORDERED: IV NORMAL SALINE 1000ML BAG 1,000 ML IV ONE (18:00)
[2020-07-14 18:11] LABS: BASO # 0.1 x10^3/uL (0.0-0.2); BASO % 1 % (0-3); EOS # 0.1 x10^3/uL (0.0-0.7); EOS % 1 % (0-3); HEMOGLOBIN 10.2 g/dL (12.0-15.5); LYMPH # 0.4 x10^3/uL (1.0-4.8); LYMPH % 6 % (24-48); MEAN CORPUSCULAR HEMOGLOBIN 27 pg (25-35); MEAN CORPUSCULAR HGB CONC 33 g/dL (31-37); MEAN CORPUSCULAR VOLUME 84 fL (79-100); MONO # 0.2 x10^3/uL (0.0-1.1); MONO % 3 % (0-9); NEUT # 5.5 x10^3/uL (1.8-7.7); NEUT % 89 % (31-73); PLATELET COUNT 225 x10^3/uL (140-400); RED BLOOD COUNT 3.71 x10^6/uL (3.50-5.40); RED CELL DISTRIBUTION WIDTH 21.1 % (11.5-14.5); WHITE BLOOD COUNT 6.2 x10^3/uL (4.0-11.0)
[2020-07-14] MEDS ORDERED: HYDROmorphone 2 MG/ML VIAL IVP ONE ×2 (18:30→19:30)
[2020-07-14] MEDS ORDERED: ONDANSETRON PF 4 MG/2 ML VIAL. IV ONE (18:30)
[2020-07-14 18:32] LABS: % BANDS 1 % (0-9); % LYMPHS 6 % (24-48); % MONOS 3 % (0-10); % SEGS 90 % (35-66); CALCIUM 8.5 mg/dL (8.5-10.1); CREATININE 0.8 mg/dL (0.6-1.0); GFR 75.6; POTASSIUM 3.6 mmol/L (3.5-5.1)
[2020-07-14 18:35] LABS: ANISOCYTOSIS MOD; PLT ESTIMATE ADEQUATE (ADEQUATE); TOXIC GRANULATION SLIGHT
[2020-07-14 18:36] LABS: ALBUMIN 3.5 g/dL (3.4-5.0); ALBUMIN/GLOBULIN RATIO 1.1 (1.0-1.7); MAGNESIUM 1.6 mg/dL (1.8-2.4); TOTAL BILIRUBIN 0.2 mg/dL (0.2-1.0); TOTAL PROTEIN 6.6 g/dL (6.4-8.2)
--- NOTE | 2020-07-14 19:24 | PHYS DOC ---
Past Medical History Past Medical History: Anxiety, Diabetes-Type II, Hypertension Additional Past Medical Histor: ULCERATIVE COLITIS Past Surgical History: Hysterectomy Additional Past Surgical Histo: HERNIA REPAIR, FISTULA REPAIR, RECTAL PROLAPSE REPAIR Smoking Status: Former Smoker Alcohol Use: Rarely Drug Use: None General Adult EDM: Chief Complaint: ABDOMINAL PAIN HPI: HPI: Patient is a 50 year old female, who is well-known to the emergency department, who presents to the emergency department with complaints of lower left quadrant abdominal pain, nausea, vomiting, and diarrhea since 3:00 this morning. The patient states she has had at least 10 episodes of vomiting and at least 3 episodes of diarrhea today. She denies any blood in her vomit or her stools. Patient denies any fever, dysuria, hematuria, increased urinary frequency, back pain, cough, shortness of breath, or constipation. She reports that this is an exacerbation of her chronic pain. Patient states she has a appointment this coming up week with a colorectal surgeon for further evaluation of her chronic abdominal pain. She states she is here today for pain medication, her home pain medication is not working. She currently rates her pain a 10 out of 10 on the pain scale she denies any radiation of the pain, the pain is worse with palpation and there are no alleviating factors. Review of Systems: Review of Systems: Constitutional: Denies fever or chills. [] HENT: Denies nasal congestion or sore throat. [] Respiratory: Denies cough or shortness of breath. [] Cardiovascular: Denies chest pain or edema. [] GI: See HPI : Denies dysuria; see HPI [] Musculoskeletal: Denies back pain or joint pain. [] Integument: Denies rash. [] Neurologic: Denies headache Psychiatric: Denies depression or anxiety. [] Complete ROS is negative unless otherwise stated in the HPI. Heart Score: Risk Factors: Risk Factors: DM, Current or recent (<one month) smoker, HTN, HLP, family h istory of CAD, obesity. Risk Scores: Score 0 - 3: 2.5% MACE over next 6 weeks - Discharge Home Score 4 - 6: 20.3% MACE over next 6 weeks - Admit for Clinical Observation Score 7 - 10: 72.7% MACE over next 6 weeks - Early Invasive Strategies Current Medications: Current Medications Medications (Trade) Dose Ordered Sig/Ga Start Time Stop Time Status Last Admin Dose Admin Hydromorphone HCl (Dilaudid) 1 mg 1X ONCE 07/14/20 18:30 07/14/20 18:31 DC 07/14/20 18:27 1 MG Magnesium Oxide (Magnesium Oxide) 400 mg 1X 07/14/20 19:15 UNV Ondansetron HCl (Zofran) 4 mg 1X ONCE 07/14/20 18:30 07/14/20 18:31 DC 07/14/20 18:27 4 MG Sodium Chloride 1,000 ml @ 1,000 mls/hr 1X ONCE 07/14/20 18:00 07/14/20 18:59 DC 07/14/20 18:27 1,000 MLS/HR Allergies: Allergies: Allergies Coded Allergies Type Severity Reaction Last Updated Verified cephalexin Allergy Intermediate rash, red ears 08/29/18 Yes ketorolac Allergy Intermediate HIVES 11/22/18 Yes prochlorperazine Allergy Intermediate 11/24/16 Yes Physical Exam: PE: Constitutional: Well developed, well nourished, mild distress, non-toxic appearance, obese, appears uncomfortable. [] HENT: Normocephalic, atraumatic, bilateral external ears normal, nose normal. [] Eyes: PERRLA, EOMI, conjunctiva normal, no discharge. [] Neck: Normal range of motion, no stridor. [] Cardiovascular:Heart rate regular rhythm Lungs & Thorax: Respirations even and unlabored, no retractions, no respiratory distress Abdomen: soft, lower left quadrant tenderness to palpation, no guarding, no rebound tenderness Skin: Warm, dry, no erythema, no rash. [] Extremities: No cyanosis, ROM intact, no edema. [] Neurologic: Alert and oriented X 3, no focal deficits noted. [] Psychologic: Affect normal, judgement normal, mood normal. [] Current Patient Data: Labs: Laboratory Tests Test 07/14/20 17:30 07/14/20 18:00 Urine Collection Type Void Urine Color Yellow Urine Clarity Clear Urine pH 6.5 (<5.0-8.0) Urine Specific House 1.010 (1.000-1.030) Urine Protein Negative mg/dL (NEG-TRACE) Urine Glucose (UA) Negative mg/dL (NEG) Urine Ketones (Stick) Negative mg/dL (NEG) Urine Blood Negative (NEG) Urine Nitrite Negative (NEG) Urine Bilirubin Negative (NEG) Urine Urobilinogen Dipstick 0.2 mg/dL (0.2 mg/dL) Urine Leukocyte Esterase Negative (NEG) Urine RBC 0 /HPF (0-2) Urine WBC Rare /HPF (0-4) Urine Squamous Epithelial Cells Few /LPF Urine Bacteria Few /HPF (0-FEW) White Blood Count 6.2 x10^3/uL (4.0-11.0) Red Blood Count 3.71 x10^6/uL (3.50-5.40) Hemoglobin 10.2 g/dL (12.0-15.5) L Hematocrit 31.0 % (36.0-47.0) L Mean Corpuscular Volume 84 fL (79-100) Mean Corpuscular Hemoglobin 27 pg (25-35) Mean Corpuscular Hemoglobin Concent 33 g/dL (31-37) Red Cell Distribution Width 21.1 % (11.5-14.5) H Platelet Count 225 x10^3/uL (140-400) Neutrophils (%) (Auto) 89 % (31-73) H Lymphocytes (%) (Auto) 6 % (24-48) L Monocytes (%) (Auto) 3 % (0-9) Eosinophils (%) (Auto) 1 % (0-3) Basophils (%) (Auto) 1 % (0-3) Neutrophils # (Auto) 5.5 x10^3/uL (1.8-7.7) Lymphocytes # (Auto) 0.4 x10^3/uL (1.0-4.8) L Monocytes # (Auto) 0.2 x10^3/uL (0.0-1.1) Eosinophils # (Auto) 0.1 x10^3/uL (0.0-0.7) Basophils # (Auto) 0.1 x10^3/uL (0.0-0.2) Segmented Neutrophils % 90 % (35-66) H Band Neutrophils % 1 % (0-9) Lymphocytes % 6 % (24-48) L Monocytes % 3 % (0-10) Toxic Granulation Slight Platelet Estimate Adequate (ADEQUATE) Anisocytosis Mod Sodium Level 141 mmol/L (136-145) Potassium Level 3.6 mmol/L (3.5-5.1) Chloride Level 105 mmol/L (98-107) Carbon Dioxide Level 32 mmol/L (21-32) Anion Gap 4 (6-14) L Blood Urea Nitrogen 8 mg/dL (7-20) Creatinine 0.8 mg/dL (0.6-1.0) Estimated GFR (Cockcroft-Gault) 75.6 BUN/Creatinine Ratio 10 (6-20) Glucose Level 162 mg/dL (70-99) H Calcium Level 8.5 mg/dL (8.5-10.1) Magnesium Level 1.6 mg/dL (1.8-2.4) L Total Bilirubin 0.2 mg/dL (0.2-1.0) Aspartate Amino Transferase (AST) 21 U/L (15-37) Alanine Aminotransferase (ALT) 45 U/L (14-59) Alkaline Phosphatase 80 U/L (46-116) Total Protein 6.6 g/dL (6.4-8.2) Albumin 3.5 g/dL (3.4-5.0) Albumin/Globulin Ratio 1.1 (1.0-1.7) Lipase 153 U/L (73-393) Laboratory Tests 07/14/20 18:00 Laboratory Tests 07/14/20 18:00 Vital Signs: Vital Signs Date Time Temp Pulse Resp B/P (MAP) Pulse Ox O2 Delivery O2 Flow Rate FiO2 07/14/20 17:30 98.8 92 18 170/105 (126) 98 Room Air 98.8 EKG: EKG: [] Radiology/Procedures: Radiology/Procedures: [] Course & Med Decision Making: Course & Med Decision Making Pertinent Labs and Imaging studies reviewed. (See chart for details) 50-year-old female that presents to the emergency department with an exacerbation of her chronic abdominal pain. Work-up included labs, urine, and IV pain medication. CBC revealed hemoglobin of 10.2, hematocrit of 31.0, patient denied any active bleeding has a history of anemia; CMP revealed a glucose of 162, magnesium of 1.6, the patient was given 400 mg of magnesium in the emergency department; UA was unremarkable. I reviewed the patient's history and due history of multiple CT scans and her reports of this being a flareup of her chronic pain imaging was not warranted. The patient was given a total of 2 mg of Dilaudid in the emergency department for relief of her pain, 4 mg of Zofran, and a liter of normal saline. She reported feeling better after these medications. I encouraged the patient to follow-up with her surgeon as planned this Wednesday. Return to the emergency room if her symptoms worsen or she develops a fever. Patient verbalized an understanding of home care, medications, follow-up, and return to ED instructions and was in agreement with the plan of care. [] Dragon Disclaimer: Dragon Disclaimer: This electronic medical record was generated, in whole or in part, using a voice recognition dictation system. Departure Departure Impression: Primary Impression: Chronic abdominal pain Disposition: HOME, SELF-CARE Condition: STABLE Referrals: UNKNOWN PCP NAME (PCP) Patient Instructions: Abdominal Pain (Nonspecific) Additional Instructions: Take your home pain medication as prescribed. Follow up with your surgeon on Wednesday this week as planned. Return to the ER if symptoms worsen or fever develops. Justicifation of Admission Dx: Justifications for Admission: Justification of Admission Dx: N/A MARLY BANUELOS APRN Jul 14, 2020 19:24
[2020-07-14 19:30] VITALS: BP 173/91
[2020-07-14] MEDS ORDERED: MAGNESIUM OXIDE 400 MG TABLET PO ONE (19:30)
== END 2020-07-14 20:15 | disposition home or self-care (01) ==
LOC: ER 17:12
DX: G89.29 Other chronic pain (principal); R10.32 Left lower quadrant pain; R11.2 Nausea with vomiting, unspecified; R19.7 Diarrhea, unspecified; F41.9 Anxiety disorder, unspecified; E11.9 Type 2 diabetes mellitus without complications; I10 Essential (primary) hypertension; Z90.710 Acquired absence of both cervix and uterus; Z98.890 Other specified postprocedural states; Z87.891 Personal history of nicotine dependence
CPT/HCPCS: 36415; 80053; 81001; 83690; 83735; 85007; 85025; 96361; 96374; 96375; 96376; 99284; J1170; J2405; J7030

== ENCOUNTER 2020-07-30 15:06 | Emergency (ER) | payer OTHER ==
[~2020-07-30] VITALS: Ht 162.6 cm; Wt 115.0 kg
[2020-07-30 17:05] VITALS: BP 176/94
[2020-07-30 18:05] LABS: BASO # 0.1 x10^3/uL (0.0-0.2); BASO % 1 % (0-3); EOS # 0.1 x10^3/uL (0.0-0.7); EOS % 1 % (0-3); HEMATOCRIT 30.7 % (36.0-47.0); HEMOGLOBIN 10.3 g/dL (12.0-15.5); LYMPH # 0.4 x10^3/uL (1.0-4.8); LYMPH % 6 % (24-48); MEAN CORPUSCULAR HEMOGLOBIN 28 pg (25-35); MEAN CORPUSCULAR HGB CONC 33 g/dL (31-37); MEAN CORPUSCULAR VOLUME 83 fL (79-100); MONO # 0.7 x10^3/uL (0.0-1.1); MONO % 10 % (0-9); NEUT % 83 % (31-73); PLATELET COUNT 216 x10^3/uL (140-400); RED BLOOD COUNT 3.68 x10^6/uL (3.50-5.40); RED CELL DISTRIBUTION WIDTH 19.4 % (11.5-14.5); WHITE BLOOD COUNT 7.3 x10^3/uL (4.0-11.0)
[2020-07-30 18:09] LABS: BILIRUBIN,URINE NEGATIVE (NEG); CLARITY,URINE CLEAR; COLOR,URINE YELLOW; NITRITE,URINE NEGATIVE (NEG); PROTEIN,URINE NEGATIVE (NEG-TRACE); UROBILINOGEN,URINE 0.2 mg/dL (0.2 mg/dL)
[2020-07-30 18:15] LABS: CALCIUM 8.4 mg/dL (8.5-10.1); CREATININE 0.6 mg/dL (0.6-1.0); GFR 105.4; POTASSIUM 3.3 mmol/L (3.5-5.1)
[2020-07-30 18:17] LABS: BACTERIA,URINE 0 /HPF (0-FEW); WBC,URINE 0 /HPF (0-4)
[2020-07-30 18:20] LABS: ALBUMIN/GLOBULIN RATIO 0.9 (1.0-1.7); TOTAL BILIRUBIN 0.3 mg/dL (0.2-1.0); TOTAL PROTEIN 6.5 g/dL (6.4-8.2)
[2020-07-30] MEDS ORDERED: IV NORMAL SALINE 1000ML BAG 1,000 ML IV ONE (18:45)
[2020-07-30] MEDS ORDERED: AMOX1TAB11 PO (19:15)
[2020-07-30] MEDS ORDERED: ONDA-84 PO (19:15)
[2020-07-30] MEDS ORDERED: ONDANSETRON PF 4 MG/2 ML VIAL. IV ONE (19:15)
--- NOTE | 2020-07-30 19:15 | PHYS DOC ---
Past Medical History Past Medical History: Anxiety, Diabetes-Type II, Hypertension Additional Past Medical Histor: ULCERATIVE COLITIS Past Surgical History: Hysterectomy Additional Past Surgical Histo: HERNIA REPAIR, FISTULA REPAIR, RECTAL PROLAPSE REPAIR Smoking Status: Former Smoker Alcohol Use: None Drug Use: None General Adult EDM: Chief Complaint: ABDOMINAL PAIN HPI: HPI: Patient is a 50 year old [f__sex] who presents with [] Review of Systems: Review of Systems: Constitutional: Denies fever or chills. [] Eyes: Denies change in visual acuity. [] HENT: Denies nasal congestion or sore throat. [] Respiratory: Denies cough or shortness of breath. [] Cardiovascular: Denies chest pain or edema. [] GI: Denies abdominal pain, nausea, vomiting, bloody stools or diarrhea. [] : Denies dysuria. [] Musculoskeletal: Denies back pain or joint pain. [] Integument: Denies rash. [] Neurologic: Denies headache, focal weakness or sensory changes. [] Endocrine: Denies polyuria or polydipsia. [] Lymphatic: Denies swollen glands. [] Psychiatric: Denies depression or anxiety. [] Heart Score: Risk Factors: Risk Factors: DM, Current or recent (<one month) smoker, HTN, HLP, family history of CAD, obesity. Risk Scores: Score 0 - 3: 2.5% MACE over next 6 weeks - Discharge Home Score 4 - 6: 20.3% MACE over next 6 weeks - Admit for Clinical Observation Score 7 - 10: 72.7% MACE over next 6 weeks - Early Invasive Strategies Current Medications: Current Medications Medications (Trade) Dose Ordered Sig/Ga Start Time Stop Time Status Last Admin Dose Admin Ondansetron HCl (Zofran) 4 mg 1X ONCE 07/30/20 19:15 07/30/20 19:16 07/30/20 18:59 4 MG Sodium Chloride 1,000 ml @ 1,000 mls/hr 1X ONCE 07/30/20 18:45 07/30/20 19:44 07/30/20 18:58 1,000 MLS/HR Allergies: Allergies: Allergies Coded Allergies Type Severity Reaction Last Updated Verified cephalexin Allergy Intermediate rash, red ears 08/29/18 Yes ketorolac Allergy Intermediate HIVES 11/22/18 Yes prochlorperazine Allergy Intermediate 11/24/16 Yes Physical Exam: PE: Constitutional: Well developed, well nourished, no acute distress, non-toxic appearance. [] HENT: Normocephalic, atraumatic, bilateral external ears normal, oropharynx moist, no oral exudates, nose normal. [] Eyes: PERRLA, EOMI, conjunctiva normal, no discharge. [] Neck: Normal range of motion, no tenderness, supple, no stridor. [] Cardiovascular:Heart rate regular rhythm, no murmur [] Lungs & Thorax: Bilateral breath sounds clear to auscultation [] Abdomen: Bowel sounds normal, soft, no tenderness, no masses, no pulsatile masses. [] Skin: Warm, dry, no erythema, no rash. [] Back: No tenderness, no CVA tenderness. [] Extremities: No tenderness, no cyanosis, no clubbing, ROM intact, no edema. [] Neurologic: Alert and oriented X 3, normal motor function, normal sensory function, no focal deficits noted. [] Psychologic: Affect normal, judgement normal, mood normal. [] Current Patient Data: Labs: Laboratory Tests Test 07/30/20 17:30 White Blood Count 7.3 x10^3/uL (4.0-11.0) Red Blood Count 3.68 x10^6/uL (3.50-5.40) Hemoglobin 10.3 g/dL (12.0-15.5) L Hematocrit 30.7 % (36.0-47.0) L Mean Corpuscular Volume 83 fL (79-100) Mean Corpuscular Hemoglobin 28 pg (25-35) Mean Corpuscular Hemoglobin Concent 33 g/dL (31-37) Red Cell Distribution Width 19.4 % (11.5-14.5) H Platelet Count 216 x10^3/uL (140-400) Neutrophils (%) (Auto) 83 % (31-73) H Lymphocytes (%) (Auto) 6 % (24-48) L Monocytes (%) (Auto) 10 % (0-9) H Eosinophils (%) (Auto) 1 % (0-3) Basophils (%) (Auto) 1 % (0-3) Neutrophils # (Auto) 6.0 x10^3/uL (1.8-7.7) Lymphocytes # (Auto) 0.4 x10^3/uL (1.0-4.8) L Monocytes # (Auto) 0.7 x10^3/uL (0.0-1.1) Eosinophils # (Auto) 0.1 x10^3/uL (0.0-0.7) Basophils # (Auto) 0.1 x10^3/uL (0.0-0.2) Urine Collection Type Unknown Urine Color Yellow Urine Clarity Clear Urine pH 7.0 (<5.0-8.0) Urine Specific [place] 1.015 (1.000-1.030) Urine Protein Negative mg/dL (NEG-TRACE) Urine Glucose (UA) Negative mg/dL (NEG) Urine Ketones (Stick) Negative mg/dL (NEG) Urine Blood Negative (NEG) Urine Nitrite Negative (NEG) Urine Bilirubin Negative (NEG) Urine Urobilinogen Dipstick 0.2 mg/dL (0.2 mg/dL) Urine Leukocyte Esterase Negative (NEG) Urine RBC 6-10 /HPF (0-2) Urine WBC 0 /HPF (0-4) Urine Bacteria 0 /HPF (0-FEW) Urine Mucus Mod /LPF Sodium Level 139 mmol/L (136-145) Potassium Level 3.3 mmol/L (3.5-5.1) L Chloride Level 101 mmol/L (98-107) Carbon Dioxide Level 28 mmol/L (21-32) Anion Gap 10 (6-14) Blood Urea Nitrogen 6 mg/dL (7-20) L Creatinine 0.6 mg/dL (0.6-1.0) Estimated GFR (Cockcroft-Gault) 105.4 BUN/Creatinine Ratio 10 (6-20) Glucose Level 144 mg/dL (70-99) H Calcium Level 8.4 mg/dL (8.5-10.1) L Total Bilirubin 0.3 mg/dL (0.2-1.0) Aspartate Amino Transferase (AST) 11 U/L (15-37) L Alanine Aminotransferase (ALT) 21 U/L (14-59) Alkaline Phosphatase 90 U/L (46-116) Total Protein 6.5 g/dL (6.4-8.2) Albumin 3.0 g/dL (3.4-5.0) L Albumin/Globulin Ratio 0.9 (1.0-1.7) L Laboratory Tests 10/6/20 17:30 Laboratory Tests 07/30/20 17:30 Vital Signs: Vital Signs Date Time Temp Pulse Resp B/P (MAP) Pulse Ox O2 Delivery O2 Flow Rate FiO2 07/30/20 17:05 99.5 114 20 176/94 (121) 97 Room Air 99.5 EKG: EKG: [] Radiology/Procedures: Radiology/Procedures: [] Course & Med Decision Making: Course & Med Decision Making Pertinent Labs and Imaging studies reviewed. (See chart for details) [] Dragon Disclaimer: Dragon Disclaimer: This electronic medical record was generated, in whole or in part, using a voice recognition dictation system. Departure Departure Impression: Primary Impression: Diarrhea Qualified Codes: R19.7 - Diarrhea, unspecified Disposition: HOME, SELF-CARE Condition: STABLE Referrals: NON,STAFF (PCP) Patient Instructions: Diarrhea, [id number], Diet for Diarrhea, Adult Additional Instructions: Fill prescriptions and use them as directed. Take your home medications as prescribed. Recommend clear fluids for the next 24 hours. Then you may advance to bland foods such as bananas, rice, applesauce, and dry toast. Follow-up with your primary care doctor in the next 1-2 days. Return to the emergency room if your symptoms worsen. Scripts Amoxicillin/Potassium Clav (AMOX TR-K CLV 875-125 MG TAB) 1 Each Tablet 1 TAB PO BID for 7 Days, #14 TAB 0 Refills Prov: MARLY BANUELOS EMPLOYMENT MANAGER 07/30/20 Ondansetron Hcl (ONDANSETRON HCL) 4 Mg Tablet 1 TAB PO PRN Q6HRS PRN for NAUSEA/VOMITING for 3 Days, #10 TAB 0 Refills Prov: MARLY BANUELOS EMPLOYMENT MANAGER 07/30/20 MARLY BANUELOS EMPLOYMENT MANAGER Jul 30, 2020 19:15
== END 2020-07-30 20:00 | disposition home or self-care (01) ==
LOC: ER 15:06
DX: R19.7 Diarrhea, unspecified (principal); R11.2 Nausea with vomiting, unspecified; R10.9 Unspecified abdominal pain; E11.9 Type 2 diabetes mellitus without complications; I10 Essential (primary) hypertension; Z87.891 Personal history of nicotine dependence; Z90.710 Acquired absence of both cervix and uterus; Z88.1 Allergy status to other antibiotic agents; Z88.6 Allergy status to analgesic agent
CPT/HCPCS: 36415; 80053; 81001; 85025; 96361; 96374; 99283; J2405; J7030

== ENCOUNTER 2020-10-07 17:54 | Emergency (ER) | payer OTHER ==
[~2020-10-07] VITALS: Ht 162.6 cm; Wt 102.2 kg
[~2020-10-07 17:54] MED LIST changes: +AMOX1TAB11 PO; +MIRT-36 PO; -MIRT15TA PO
--- NOTE | 2020-10-07 18:53 | ED.ADGEN ---
Past Medical History Past Medical History: Anxiety, Diabetes-Type II, Hypertension Additional Past Medical Histor: ULCERATIVE COLITIS Past Surgical History: Hysterectomy Additional Past Surgical Histo: HERNIA REPAIR, FISTULA REPAIR, RECTAL PROLAPSE REPAIR Smoking Status: Former Smoker Alcohol Use: None Drug Use: None General Adult EDM: Chief Complaint: ABDOMINAL PAIN HPI: HPI: Patient is a 50 year old female coming in for exacerbation of colitis. Patient states his back trying to take her home medications including her Bentyl and suppositories. Says she had 2-3 episodes of nonbloody nonbilious emesis about 3 AM. Patient states that she is going to see a colorectal surgeon in about 2 weeks. Patient states that symptoms are no different than her previous flareups that are usually treated with a Medrol Dosepak antibiotics. Patient states she has a history of colitis, proctitis, and was told she possibly has ulcerative colitis. Denies any fevers, cough. No urinary problems. Review of Systems: Review of Systems: Constitutional: Denies fever or chills. [] Eyes: Denies change in visual acuity. [] HENT: Denies nasal congestion or sore throat. [] Respiratory: Denies cough or shortness of breath. [] Cardiovascular: Denies chest pain or edema. [] GI: Left abdominal pain, nausea, vomiting, bloody diarrhea : Denies dysuria. [] Musculoskeletal: Denies back pain or joint pain. [] Integument: Denies rash. [] Neurologic: Denies headache, focal weakness or sensory changes. [] Endocrine: Denies polyuria or polydipsia. [] Lymphatic: Denies swollen glands. [] Psychiatric: Denies depression or anxiety. [] Current Medications: Current Medications Medications (Trade) Dose Ordered Sig/Ga Start Time Stop Time Status Last Admin Dose Admin Hydromorphone HCl (Dilaudid) 1 mg 1X ONCE 10/07/20 19:00 10/07/20 19:01 DC 10/07/20 19:16 1 MG Methylprednisolone Sodium Succinate (SOLU-Medrol 125MG VIAL) 125 mg 1X ONCE 10/07/20 19:00 10/07/20 19:01 DC 10/07/20 19:15 125 MG Allergies: Allergies: Allergies Coded Allergies Type Severity Reaction Last Updated Verified cephalexin Allergy Intermediate rash, red ears 08/29/18 Yes ketorolac Allergy Intermediate HIVES 11/22/18 Yes prochlorperazine Allergy Intermediate 11/24/16 Yes Physical Exam: PE: Constitutional: Well developed, well nourished, no acute distress, non-toxic appearance. [] HENT: Normocephalic, atraumatic, bilateral external ears normal, oropharynx moist, no oral exudates, nose normal. [] Eyes: PERRLA, EOMI, conjunctiva normal, no discharge. [] Neck: Normal range of motion, no tenderness, supple, no stridor. [] Cardiovascular:Heart rate regular rhythm, no murmur [] Lungs & Thorax: Bilateral breath sounds clear to auscultation [] Abdomen: Left-sided abdominal pain with guarding in left upper and left lower quadrants Skin: Warm, dry, no erythema, no rash. [] Back: No tenderness, no CVA tenderness. [] Extremities: No tenderness, no cyanosis, no clubbing, ROM intact, no edema. [] Neurologic: Alert and oriented X 3, normal motor function, normal sensory function, no focal deficits noted. [] Psychologic: Affect normal, judgement normal, mood normal. [] Current Patient Data: Labs: Laboratory Tests Test 10/07/20 19:05 White Blood Count 6.2 x10^3/uL (4.0-11.0) Red Blood Count 4.06 x10^6/uL (3.50-5.40) Hemoglobin 10.7 g/dL (12.0-15.5) L Hematocrit 33.0 % (36.0-47.0) L Mean Corpuscular Volume 81 fL (79-100) Mean Corpuscular Hemoglobin 26 pg (25-35) Mean Corpuscular Hemoglobin Concent 33 g/dL (31-37) Red Cell Distribution Width 14.7 % (11.5-14.5) H Platelet Count 258 x10^3/uL (140-400) Neutrophils (%) (Auto) 82 % (31-73) H Lymphocytes (%) (Auto) 9 % (24-48) L Monocytes (%) (Auto) 8 % (0-9) Eosinophils (%) (Auto) 1 % (0-3) Basophils (%) (Auto) 1 % (0-3) Neutrophils # (Auto) 5.1 x10^3/uL (1.8-7.7) Lymphocytes # (Auto) 0.6 x10^3/uL (1.0-4.8) L Monocytes # (Auto) 0.5 x10^3/uL (0.0-1.1) Eosinophils # (Auto) 0.1 x10^3/uL (0.0-0.7) Basophils # (Auto) 0.0 x10^3/uL (0.0-0.2) Sodium Level 141 mmol/L (136-145) Potassium Level 3.6 mmol/L (3.5-5.1) Chloride Level 103 mmol/L (98-107) Carbon Dioxide Level 25 mmol/L (21-32) Anion Gap 13 (6-14) Blood Urea Nitrogen 8 mg/dL (7-20) Creatinine 1.0 mg/dL (0.6-1.0) Estimated GFR (Cockcroft-Gault) 58.5 BUN/Creatinine Ratio 8 (6-20) Glucose Level 173 mg/dL (70-99) H Calcium Level 8.7 mg/dL (8.5-10.1) Total Bilirubin 0.3 mg/dL (0.2-1.0) Aspartate Amino Transferase (AST) 10 U/L (15-37) L Alanine Aminotransferase (ALT) 23 U/L (14-59) Alkaline Phosphatase 108 U/L (46-116) Total Protein 6.6 g/dL (6.4-8.2) Albumin 3.3 g/dL (3.4-5.0) L Albumin/Globulin Ratio 1.0 (1.0-1.7) Laboratory Tests 10/07/20 19:05 Laboratory Tests 10/07/20 19:05 Vital Signs: Vital Signs Date Time Temp Pulse Resp B/P (MAP) Pulse Ox O2 Delivery O2 Flow Rate FiO2 10/07/20 19:16 16 96 Room Air 10/07/20 18:48 97.6 126 156/124 (135) 97.6 EKG: EKG: [] Heart Score: Risk Factors: Risk Factors: DM, Current or recent (<one month) smoker, HTN, HLP, family history of CAD, obesity. Risk Scores: Score 0 - 3: 2.5% MACE over next 6 weeks - Discharge Home Score 4 - 6: 20.3% MACE over next 6 weeks - Admit for Clinical Observation Score 7 - 10: 72.7% MACE over next 6 weeks - Early Invasive Strategies Radiology/Procedures: Radiology/Procedures: [] Course & Med Decision Making: Course & Med Decision Making Discussed with patient's we will check some labs to make sure no other complications discussed with patient risks and benefits of CT, she states that she was told by her primary care to avoid CTs for flareups that are different than her normal. Labs at baseline. Treat none follow with primary care [] Charbel Disclaimer: Charbel Disclaimer: This electronic medical record was generated, in whole or in part, using a voice recognition dictation system. Departure Departure Impression: Primary Impression: Colitis Disposition: DC HOME SELF CARE/HOMELESS Condition: STABLE Referrals: UNKNOWN PCP NAME (PCP) Patient Instructions: Colitis Scripts Methylprednisolone (MEDROL) 4 Mg Tab.ds.pk 1 PKG PO UD for inflammation, #1 PKG Prov: MITCHELL BELLAMY MD 10/07/20 Oxycodone Hcl (OXYCODONE HCL) 5 Mg Capsule 5 MG PO PRN Q6HRS PRN for PAIN for 3 Days, #8 TAB 0 Refills Prov: MITCHELL BELLAMY MD 10/07/20 Amoxicillin/Potassium Clav (AUGMENTIN 875-125 TABLET) 1 Each Tablet 1 TAB PO Q12HR for 7 Days, #14 TAB Prov: MITCHELL BELLAMY MD 10/07/20 MITCHELL BELLAMY MD Oct 07, 2020 18:53
[2020-10-07] MEDS ORDERED: methylPREDNISolone SOD SUCC PF 125 MG/2 ML VIAL. IV ONE (19:00)
[2020-10-07] MEDS ORDERED: HYDROmorphone 2 MG/ML VIAL IVP ONE (19:00)
[2020-10-07 19:16] LABS: BASO % 1 % (0-3); EOS # 0.1 x10^3/uL (0.0-0.7); EOS % 1 % (0-3); HEMOGLOBIN 10.7 g/dL (12.0-15.5); LYMPH # 0.6 x10^3/uL (1.0-4.8); LYMPH % 9 % (24-48); MEAN CORPUSCULAR HEMOGLOBIN 26 pg (25-35); MEAN CORPUSCULAR HGB CONC 33 g/dL (31-37); MEAN CORPUSCULAR VOLUME 81 fL (79-100); MONO # 0.5 x10^3/uL (0.0-1.1); MONO % 8 % (0-9); NEUT # 5.1 x10^3/uL (1.8-7.7); NEUT % 82 % (31-73); PLATELET COUNT 258 x10^3/uL (140-400); RED BLOOD COUNT 4.06 x10^6/uL (3.50-5.40); RED CELL DISTRIBUTION WIDTH 14.7 % (11.5-14.5); WHITE BLOOD COUNT 6.2 x10^3/uL (4.0-11.0)
[2020-10-07 19:26] LABS: CALCIUM 8.7 mg/dL (8.5-10.1); GFR 58.5; POTASSIUM 3.6 mmol/L (3.5-5.1)
[2020-10-07 19:32] LABS: ALBUMIN 3.3 g/dL (3.4-5.0); TOTAL BILIRUBIN 0.3 mg/dL (0.2-1.0); TOTAL PROTEIN 6.6 g/dL (6.4-8.2)
[2020-10-07 19:39] VITALS: BP 146/108
[2020-10-07] MEDS ORDERED: AMOX1TAB61 PO (20:04)
[2020-10-07] MEDS ORDERED: METH4TAB2 PO (20:04)
[2020-10-07] MEDS ORDERED: OXYC5CAP PO (20:04)
== END 2020-10-07 20:12 | disposition home or self-care (01) ==
LOC: ER 17:54
DX: K52.9 Noninfective gastroenteritis and colitis, unspecified (principal); E11.9 Type 2 diabetes mellitus without complications; I10 Essential (primary) hypertension; Z90.710 Acquired absence of both cervix and uterus; Z98.890 Other specified postprocedural states; Z87.891 Personal history of nicotine dependence; Z88.1 Allergy status to other antibiotic agents; Z88.6 Allergy status to analgesic agent; Z88.8 Allergy status to other drugs, medicaments and biological substances
CPT/HCPCS: 36415; 80053; 85025; 96374; 96375; 99284; J1170; J2930

== ENCOUNTER 2020-10-18 13:39 | Emergency (ER) | payer OTHER ==
[~2020-10-18] VITALS: Ht 162.6 cm; Wt 109.0 kg
[~2020-10-18 13:39] MED LIST changes: +AMOX1TAB61 PO; +METH4TAB2 PO
[2020-10-18 14:04] VITALS: BP 160/113
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
== END 2020-10-18 14:10 | disposition left against medical advice (07) ==
LOC: ER 13:39
DX: S20.212A Contusion of left front wall of thorax, initial encounter (principal); E11.9 Type 2 diabetes mellitus without complications; I10 Essential (primary) hypertension; G89.29 Other chronic pain; Z87.891 Personal history of nicotine dependence; Z88.1 Allergy status to other antibiotic agents; Z88.6 Allergy status to analgesic agent; Z88.8 Allergy status to other drugs, medicaments and biological substances; V49.49XA Driver injured in collision with other motor vehicles in traffic accident, initial encounter; Y92.488 Other paved roadways as the place of occurrence of the external cause; Y93.89 Activity, other specified; Y99.8 Other external cause status
CPT/HCPCS: 99281

== ENCOUNTER 2020-11-14 22:08 | Emergency (ER) | payer OTHER, BC ==
[~2020-11-14] VITALS: Ht 162.6 cm; Wt 104.0 kg
[2020-11-14] MEDS ORDERED: ONDANSETRON ODT 4 MG TAB.RAPDIS. PO ONE (22:45)
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
[2020-11-14 22:51] VITALS: BP 123/83
[2020-11-14] MEDS ORDERED: ACETAMINOPHEN 500 MG TABLET PO ONE (23:15)
--- NOTE | 2020-11-18 10:16 | EKG ---
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
== END 2020-11-14 23:00 | disposition left against medical advice (07) ==
LOC: ER 22:08
DX: R07.89 Other chest pain (principal); R11.10 Vomiting, unspecified; M54.9 Dorsalgia, unspecified; F41.9 Anxiety disorder, unspecified; E11.9 Type 2 diabetes mellitus without complications; K21.9 Gastro-esophageal reflux disease without esophagitis; E78.00 Pure hypercholesterolemia, unspecified; I10 Essential (primary) hypertension; Z90.710 Acquired absence of both cervix and uterus; Z98.890 Other specified postprocedural states; Z87.891 Personal history of nicotine dependence; Z88.8 Allergy status to other drugs, medicaments and biological substances; Z88.1 Allergy status to other antibiotic agents
CPT/HCPCS: 93005; 99281; 99283

== ENCOUNTER 2020-11-27 18:38 | Emergency (ER) | payer BC, OTHER ==
[~2020-11-27] VITALS: Ht 162.6 cm; Wt 82.0 kg
[~2020-11-27 18:38] MED LIST changes: -CIPR500T PO; +CIPR500T2 PO
[2020-11-27] MEDS ORDERED: IV NORMAL SALINE 1000ML BAG 1,000 ML IV ONE (20:00)
[2020-11-27] MEDS ORDERED: ONDANSETRON PF 4 MG/2 ML VIAL. IV ONE (20:30)
[2020-11-27] MEDS ORDERED: HYDROmorphone 2 MG/ML VIAL IVP ONE (20:30)
[2020-11-27 20:46] LABS: BASO % 0 % (0-3); EOS # 0.2 x10^3/uL (0.0-0.7); EOS % 4 % (0-3); HEMATOCRIT 27.9 % (36.0-47.0); HEMOGLOBIN 8.8 g/dL (12.0-15.5); LYMPH # 0.5 x10^3/uL (1.0-4.8); LYMPH % 10 % (24-48); MEAN CORPUSCULAR HEMOGLOBIN 25 pg (25-35); MEAN CORPUSCULAR HGB CONC 32 g/dL (31-37); MEAN CORPUSCULAR VOLUME 78 fL (79-100); MONO # 0.5 x10^3/uL (0.0-1.1); MONO % 9 % (0-9); NEUT # 4.1 x10^3/uL (1.8-7.7); NEUT % 77 % (31-73); PLATELET COUNT 319 x10^3/uL (140-400); RED BLOOD COUNT 3.56 x10^6/uL (3.50-5.40); RED CELL DISTRIBUTION WIDTH 15.3 % (11.5-14.5); WHITE BLOOD COUNT 5.3 x10^3/uL (4.0-11.0)
[2020-11-27 20:48] LABS: BILIRUBIN,URINE NEGATIVE (NEG); CLARITY,URINE CLEAR; COLOR,URINE AMBER; NITRITE,URINE NEGATIVE (NEG); PROTEIN,URINE NEGATIVE (NEG-TRACE); UROBILINOGEN,URINE 0.2 mg/dL (0.2 mg/dL)
[2020-11-27 20:54] LABS: CALCIUM 9.1 mg/dL (8.5-10.1); CREATININE 0.7 mg/dL (0.6-1.0); GFR 88.2; POTASSIUM 3.4 mmol/L (3.5-5.1)
[2020-11-27 20:55] LABS: BACTERIA,URINE FEW /HPF (0-FEW); RBC,URINE 0 /HPF (0-2)
[2020-11-27 20:59] LABS: ALBUMIN 2.9 g/dL (3.4-5.0); ALBUMIN/GLOBULIN RATIO 0.7 (1.0-1.7); MAGNESIUM 1.8 mg/dL (1.8-2.4); TOTAL BILIRUBIN 0.2 mg/dL (0.2-1.0)
[2020-11-27] MEDS ORDERED: IOHEXOL 300 MG/ML 100ML VIAL. IV ONE (21:00)
[2020-11-27] MEDS ORDERED: CONTRAST GIVEN. MC PRN (21:00)
--- NOTE | 2020-11-27 21:55 | RAD ---
Exam: CT of abdomen and pelvis with contrast INDICATION: Left lower quadrant abdominal pain TECHNIQUE: Sequential axial images through the abdomen and pelvis obtained following the administrati on of 75 mL of Omni 300 IV contrast. Sagittal and coronal reformatted images were reconstructed from the axial data and reviewed. Comparisons: 07/03/2020 FINDINGS: Heart size is normal. No pericardial. There is patchy areas of tree-in-bud nodularity noted at the ri ght lower lobe. No pleural effusion. Liver, spleen, pancreas and adrenals are unremarkable. Gallbladder is absent. No perinephric inflammation or hydronephrosis. No renal or ureteral calculi are identified. Bladder is decompressed not well evaluated. Uterus is absent. No abnormal adnexal mass. Large and small bowel are unremarkable. Appendix is not identified. No free intra-abdominal air or fl uid. No obstruction. Abdominal aorta has a normal course and caliber. Abdominal vasculature is patent. No enlarged abdominal lymph nodes are identified. No suspicious osseous lesions or acute fractures. IMPRESSION: 1. No acute process identified within the abdomen or pelvis. 2. Tree-in-bud nodularity at the right lower lobe favored to be Infectious or inflammatory in etiolo gy. Exposure: One or more of the following in the visualized dose reduction techniques were utilized for this examination: 1. Automated exposure control 2. Adjustment of the MA and/or KV according to patient size 3. Use of iterative of reconstructive technique Electronically signed by: Laura Maloney MD (11/27/2020 9:52 PM) [facility]
[2020-11-27 21:57] VITALS: BP 155/93
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
== END 2020-11-27 23:17 | disposition home or self-care (01) ==
LOC: ER 18:38
DX: R10.32 Left lower quadrant pain (principal); R11.2 Nausea with vomiting, unspecified; R19.7 Diarrhea, unspecified; F11.10 Opioid abuse, uncomplicated; F41.9 Anxiety disorder, unspecified; E11.9 Type 2 diabetes mellitus without complications; K21.9 Gastro-esophageal reflux disease without esophagitis; E78.00 Pure hypercholesterolemia, unspecified; I10 Essential (primary) hypertension; Z90.710 Acquired absence of both cervix and uterus; Z98.890 Other specified postprocedural states; Z87.891 Personal history of nicotine dependence; Z88.1 Allergy status to other antibiotic agents; Z88.8 Allergy status to other drugs, medicaments and biological substances
CPT/HCPCS: 36415; 74177; 80053; 81001; 81025; 83690; 83735; 85025; 96361; 96374; 96375; 99285; J1170; J2405; J7030; Q9967

== ENCOUNTER 2020-12-23 18:14 | Emergency (ER) | payer BC ==
[~2020-12-23] VITALS: Ht 162.6 cm; Wt 104.5 kg
[2020-12-23 19:58] LABS: BILIRUBIN,URINE NEGATIVE (NEG); CLARITY,URINE CLEAR; COLOR,URINE YELLOW; NITRITE,URINE NEGATIVE (NEG); PROTEIN,URINE NEGATIVE (NEG-TRACE); UROBILINOGEN,URINE 0.2 mg/dL (0.2 mg/dL)
--- NOTE | 2020-12-23 20:04 | PHYS DOC ---
Past Medical History Past Medical History: Anxiety, Diabetes-Type II, GERD, High Cholesterol, Hypertension Additional Past Medical Histor: ULCERATIVE COLITIS Past Surgical History: Hysterectomy Additional Past Surgical Histo: HERNIA REPAIR, FISTULA REPAIR, RECTAL PROLAPSE REPAIR Smoking Status: Former Smoker Alcohol Use: Occasionally Drug Use: None General Adult EDM: Chief Complaint: FLANK PAIN HPI: HPI: Patient is a 50 year old female past medical history hypertension hyperlipidemia anxiety depression and ulcerative colitis presents with a chief complaint of right flank pain right lower quadrant. Onset of symptoms 1 day ago progressively coming worse. Patient has associated nausea and vomiting. Patient also complains of hematuria but denies any dysuria Past surgical history include cholecystectomy and an appendectomy. Patient denies any previous history of kidney stones. States she was last seen at [facility] approximately 1 week ago for an ulcerative colitis flare--- but those symptoms have resolved. Denies recent ER visit for current symptoms. Review of Systems: Review of Systems: Review of systems: Constitutional symptoms- No fever, no chills. Eyes- No Discharge, No Visual Loss Respiratory symptoms- No shortness of breath, No wheezing, No Dyspnea on Exertion Cardiovascular Systems; No chest pain, No Palpitations, No syncope Gastrointestinal symptoms: NO abdominal pain, Positive nausea, Positive vomiting or diarrhea. Genitourinary symptoms: No dysuria. Positive flank pain positive hematuria Musculoskeletal symptoms: No back pain No extremity pain. NEUROLOGICAL Symptoms: No headache, no generalized weakness; No focal Weakness Heart Score: Risk Factors: Risk Factors: DM, Current or recent (<one month) smoker, HTN, HLP, family history of CAD, obesity. Risk Scores: Score 0 - 3: 2.5% MACE over next 6 weeks - Discharge Home Score 4 - 6: 20.3% MACE over next 6 weeks - Admit for Clinical Observation Score 7 - 10: 72.7% MACE over next 6 weeks - Early Invasive Strategies Allergies: Allergies: Allergies Coded Allergies Type Severity Reaction Last Updated Verified cephalexin Allergy Intermediate rash, red ears 08/29/18 Yes ketorolac Allergy Intermediate HIVES 11/22/18 Yes prochlorperazine Allergy Intermediate 11/24/16 Yes Physical Exam: PE: General: alert, no acute distress. Skin: warm, dry and intact. Head:: Normocephalic, atraumatic. Neck: Trachea midline. Eyes: EOMI, Normal conjunctiva, No drainage CARDIOVASCULAR: Regular rate and rhythm RESPIRATORY: No respiratory distress Back: Full range of motion. Positive flank pain on the right tender to palpation MUSCULOSKELETAL: Full range of motion of bilateral upper and lower extremities. GASTROINTESTINAL: Abdomen soft without rebound or guarding. Tenderness to palpation suprapubic no rebound or guarding NEUROLOGICAL: Alert and noted to person, place and time. No neurological deficits observed Psychiatric: Cooperative. Normal judgment Current Patient Data: Vital Signs: Vital Signs Date Time Temp Pulse Resp B/P (MAP) Pulse Ox O2 Delivery O2 Flow Rate FiO2 12/23/20 18:34 98.4 95 19 137/101 (113) 99 Room Air 98.4 EKG: EKG: [] Radiology/Procedures: Radiology/Procedures: [] Course & Med Decision Making: Course & Med Decision Making Pertinent Labs and Imaging studies reviewed. (See chart for details) []Patient urine with rbc and and blood. CT abdomen/pel ordered for stone protocal. Patient signed out AMA prior to study. Charbel Disclaimer: Charbel Disclaimer: This electronic medical record was generated, in whole or in part, using a voice recognition dictation system. Departure Departure Impression: Primary Impression: Flank pain Additional Impression: Nausea & vomiting Disposition: 07 AMA/ELOPED/LWBS Condition: STABLE Referrals: NO PCP (PCP) Patient Instructions: Flank Pain, Hematuria, Adult BARB ROSALES I DO Dec 23, 2020 20:04
[2020-12-23 20:06] LABS: BACTERIA,URINE 0 /HPF (0-FEW); RBC,URINE TNTC /HPF (0-2); WBC,URINE OCC /HPF (0-4)
[2020-12-23] MEDS ORDERED: ACETAMINOPHEN 325 MG TABLET. PO ONE (20:15)
[2020-12-23 20:20] VITALS: BP 145/89
== END 2020-12-23 20:29 | disposition left against medical advice (07) ==
LOC: ER 18:14
DX: R10.31 Right lower quadrant pain (principal); R11.2 Nausea with vomiting, unspecified; R31.9 Hematuria, unspecified; F41.9 Anxiety disorder, unspecified; E11.9 Type 2 diabetes mellitus without complications; K21.9 Gastro-esophageal reflux disease without esophagitis; E78.00 Pure hypercholesterolemia, unspecified; I10 Essential (primary) hypertension; Z90.710 Acquired absence of both cervix and uterus; Z87.891 Personal history of nicotine dependence; Z98.890 Other specified postprocedural states; Z88.1 Allergy status to other antibiotic agents; Z88.8 Allergy status to other drugs, medicaments and biological substances
CPT/HCPCS: 81001; 99283

== ENCOUNTER 2021-01-17 11:29 | Emergency (ER) | payer OTHER, BC ==
[~2021-01-17] VITALS: Ht 162.6 cm; Wt 98.7 kg
[2021-01-17] MEDS ORDERED: ONDANSETRON PF 4 MG/2 ML VIAL. IVP ONE (11:45)
[2021-01-17] MEDS ORDERED: ORPHENADRINE CITRATE 60 MG/2 ML VIAL. IV ONE (11:45)
[2021-01-17] MEDS ORDERED: IV NORMAL SALINE 1000ML BAG 1,000 ML IV ONE (11:45)
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
[2021-01-17 12:09] LABS: BILIRUBIN,URINE SMALL (NEG); CLARITY,URINE CLEAR; COLOR,URINE AMBER; NITRITE,URINE NEGATIVE (NEG); PH,URINE 5.5 (<5.0-8.0); PROTEIN,URINE NEGATIVE (NEG-TRACE); UROBILINOGEN,URINE 0.2 mg/dL (0.2 mg/dL)
[2021-01-17 12:40] LABS: RBC,URINE TNTC /HPF (0-2)
[2021-01-17 12:40] LABS: BASO % 1 % (0-3); EOS # 0.1 x10^3/uL (0.0-0.7); EOS % 4 % (0-3); HEMATOCRIT 31.7 % (36.0-47.0); HEMOGLOBIN 10.3 g/dL (12.0-15.5); LYMPH # 0.3 x10^3/uL (1.0-4.8); LYMPH % 8 % (24-48); MEAN CORPUSCULAR HEMOGLOBIN 26 pg (25-35); MEAN CORPUSCULAR HGB CONC 32 g/dL (31-37); MEAN CORPUSCULAR VOLUME 81 fL (79-100); MONO # 0.2 x10^3/uL (0.0-1.1); MONO % 8 % (0-9); NEUT # 2.7 x10^3/uL (1.8-7.7); NEUT % 81 % (31-73); PLATELET COUNT 254 x10^3/uL (140-400); RED BLOOD COUNT 3.93 x10^6/uL (3.50-5.40); RED CELL DISTRIBUTION WIDTH 19.9 % (11.5-14.5); WHITE BLOOD COUNT 3.3 x10^3/uL (4.0-11.0)
[2021-01-17 12:41] LABS: BACTERIA,URINE FEW /HPF (0-FEW)
[2021-01-17 12:55] LABS: CALCIUM 8.6 mg/dL (8.5-10.1); CREATININE 0.6 mg/dL (0.6-1.0); GFR 105.4; POTASSIUM 3.9 mmol/L (3.5-5.1)
[2021-01-17 12:58] LABS: ALBUMIN 3.3 g/dL (3.4-5.0); ALBUMIN/GLOBULIN RATIO 0.9 (1.0-1.7); TOTAL BILIRUBIN 0.3 mg/dL (0.2-1.0); TOTAL PROTEIN 6.8 g/dL (6.4-8.2)
[2021-01-17] MEDS ORDERED: IOHEXOL 300 MG/ML 100ML VIAL. IV ONE (13:15)
[2021-01-17 13:21] LABS: % BANDS 1 % (0-9); % EOS 1 % (0-5); % LYMPHS 10 % (24-48); % MONOS 3 % (0-10); % SEGS 85 % (35-66)
[2021-01-17 13:22] LABS: ANISOCYTOSIS SLIGHT; PLT ESTIMATE ADEQUATE (ADEQUATE)
[2021-01-17] MEDS ORDERED: CONTRAST GIVEN. MC PRN (13:30)
[2021-01-17] MEDS ORDERED: fentaNYL PF VIAL 100 MCG/2 ML VIAL IV ONE (14:15)
[2021-01-17 14:46] LABS: BILIRUBIN,URINE NEGATIVE (NEG); CLARITY,URINE CLEAR; COLOR,URINE YELLOW; NITRITE,URINE NEGATIVE (NEG); PH,URINE 6.5 (<5.0-8.0); PROTEIN,URINE NEGATIVE (NEG-TRACE); UROBILINOGEN,URINE 0.2 mg/dL (0.2 mg/dL)
[2021-01-17 14:55] LABS: AMORPHOUS SEDIMENT,UR PRESENT /HPF
[2021-01-17 14:56] LABS: RBC,URINE RARE /HPF (0-2); WBC,URINE OCC /HPF (0-4)
[2021-01-17 14:58] LABS: BACTERIA,URINE FEW /HPF (0-FEW)
[2021-01-17 15:14] VITALS: BP 177/97
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
[2021-01-17] MEDS ORDERED: ORPH100T PO (15:26)
[2021-01-17] MEDS ORDERED: LIDO1ADH63 TP (15:28)
== END 2021-01-17 15:40 | disposition home or self-care (01) ==
LOC: ER 11:29
DX: R10.9 Unspecified abdominal pain (principal); R11.2 Nausea with vomiting, unspecified; G89.11 Acute pain due to trauma; E11.9 Type 2 diabetes mellitus without complications; M54.5 Low back pain; R10.2 Pelvic and perineal pain; E78.00 Pure hypercholesterolemia, unspecified; K21.9 Gastro-esophageal reflux disease without esophagitis; I10 Essential (primary) hypertension; Z90.710 Acquired absence of both cervix and uterus; Z87.891 Personal history of nicotine dependence; Z88.1 Allergy status to other antibiotic agents; Z88.6 Allergy status to analgesic agent; Z88.8 Allergy status to other drugs, medicaments and biological substances; V49.49XA Driver injured in collision with other motor vehicles in traffic accident, initial encounter; Y92.488 Other paved roadways as the place of occurrence of the external cause; Y93.89 Activity, other specified; Y99.8 Other external cause status
CPT/HCPCS: 36415; 76770; 80053; 81001; 83690; 83735; 85007; 85025; 87086; 96361; 96374; 96375; 99285; J2360; J2405; J3010; J7030

== ENCOUNTER 2021-03-01 16:41 | Emergency (ER) | payer BC, OTHER ==
[~2021-03-01] VITALS: Ht 162.6 cm; Wt 95.5 kg
[~2021-03-01 16:41] MED LIST changes: +LIDO1ADH63 TP; +ORPH100T PO
--- NOTE | 2021-03-01 18:09 | PHYS DOC ---
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 Patient states the diarrhea is chronic though. She is also complaining of chest congestion, she states her father was diagnosed with COVID-19 a couple days ago. (COURTNEY RAYMOND USABILITY STRATEGIST) Review of Systems: Review of Systems: Constitutional: Denies fever or chills. [] Eyes: Denies change in visual acuity. [] HENT: Denies nasal congestion or sore throat. [] Respiratory: Reports chest congestion. Denies cough or shortness of breath. [] Cardiovascular: Denies chest pain or edema. [] GI: Reports abdominal pain with nausea, denies vomiting, bloody stools or diarrhea. [] : Denies dysuria. [] Musculoskeletal: Denies back pain or joint pain. [] Integument: Denies rash. [] Neurologic: Denies headache, focal weakness or sensory changes. [] Psychiatric: Denies depression or anxiety. [] (COURTNEY RAYMOND USABILITY STRATEGIST) Heart Score: C/O Chest Pain: N/A Risk Factors: Risk Factors: DM, Current or recent (<one month) smoker, HTN, HLP, family history of CAD, obesity. Risk Scores: Score 0 - 3: 2.5% MACE over next 6 weeks - Discharge Home Score 4 - 6: 20.3% MACE over next 6 weeks - Admit for Clinical Observation Score 7 - 10: 72.7% MACE over next 6 weeks - Early Invasive Strategies (COURTNEY RAYMOND USABILITY STRATEGIST) Allergies: Allergies: Allergies Coded Allergies Type Severity Reaction Last Updated Verified cephalexin Allergy Intermediate rash, red ears 08/29/18 Yes ketorolac Allergy Intermediate HIVES 11/22/18 Yes prochlorperazine Allergy Intermediate 11/24/16 Yes (COURTNEY RAYMOND USABILITY STRATEGIST) Physical Exam: PE: Constitutional: Well developed, well nourished, no acute distress, non-toxic appearance. [] HENT: Normocephalic, atraumatic, bilateral external ears normal, oropharynx moist, no oral exudates, nose normal. [] Eyes: PERRLA, EOMI, conjunctiva normal, no discharge. [] Neck: Normal range of motion, no tenderness, supple, no stridor. [] Cardiovascular:Heart rate regular rhythm, no murmur [] Lungs & Thorax: Bilateral breath sounds clear to auscultation [] Abdomen: Bowel sounds normal, soft, no tenderness, no masses, no pulsatile masses. [] Skin: Warm, dry, no erythema, no rash. [] Back: No tenderness, no CVA tenderness. [] Extremities: No tenderness, no cyanosis, no clubbing, ROM intact, no edema. [] Neurologic: Alert and oriented X 3, normal motor function, normal sensory function, no focal deficits noted. [] Psychologic: Affect normal, judgement normal, mood normal. [] (COURTNEY RAYMOND USABILITY STRATEGIST) Current Patient Data: Vital Signs: Vital Signs Date Time Temp Pulse Resp B/P (MAP) Pulse Ox O2 Delivery O2 Flow Rate FiO2 03/01/21 16:47 98.3 97 19 125/84 (98) 99 Room Air 98.3 (COURTNEY RAYMOND USABILITY STRATEGIST) EKG: EKG: [] (COURTNEY RAYMOND USABILITY STRATEGIST) Radiology/Procedures: Radiology/Procedures: [] (COURTNEY RAYMOND USABILITY STRATEGIST) Course & Med Decision Making: Course & Med Decision Making Pertinent Labs and Imaging studies reviewed. (See chart for details) This is a 50-year-old female patient well-known to this ED presenting today complaining of abdominal pain with nausea as well as diarrhea, chest congestion. Informed patient we will get lab work and give her some fluids and nausea medicine and nonnarcotic pain medicine. She requested the nurse to stop getting her IV in so she can leave. She states there is no point of being in the ED if we cannot give her something stronger for pain. Off note she removed her own pulse oximetry monitor and got out of bed with no difficulties. (COURTNEY RAYMOND USABILITY STRATEGIST) Dragon Disclaimer: Dragon Disclaimer: This electronic medical record was generated, in whole or in part, using a voice recognition dictation system. (COURTNEY RAYMOND USABILITY STRATEGIST) Departure Departure Impression: Primary Impression: Abdominal pain Qualified Codes: R10.84 - Generalized abdominal pain Additional Impression: Nausea & vomiting Qualified Codes: R11.2 - Nausea with vomiting, unspecified Disposition: LEFT AGAINST MEDICAL ADVICE Condition: STABLE Referrals: NO PCP (PCP) Attending Signature Attending Signature I have participated in the care of this patient and I have reviewed and agree with all pertinent clinical information above including history, exam, and recommendations. (PACHECO VENTURA DO) COURTNEY RAYMOND APRN March 01, 2021 18:09 PACHECO VENTURA DO March 02, 2021 17:42
== END 2021-03-01 16:57 | disposition left against medical advice (07) ==
LOC: ER 16:41
DX: R10.84 Generalized abdominal pain (principal); R11.2 Nausea with vomiting, unspecified; R19.7 Diarrhea, unspecified; F41.9 Anxiety disorder, unspecified; E11.9 Type 2 diabetes mellitus without complications; K21.9 Gastro-esophageal reflux disease without esophagitis; E78.00 Pure hypercholesterolemia, unspecified; I10 Essential (primary) hypertension; Z90.710 Acquired absence of both cervix and uterus; Z88.1 Allergy status to other antibiotic agents; Z88.8 Allergy status to other drugs, medicaments and biological substances
CPT/HCPCS: 99281

== ENCOUNTER 2021-04-10 13:47 | Emergency (ER) | payer BC ==
[~2021-04-10] VITALS: Ht 162.6 cm; Wt 98.2 kg
[2021-04-10 14:30] VITALS: BP 154/92
--- NOTE | 2021-04-10 15:02 | PHYS DOC ---
Past Medical History Past Medical History: Anxiety, Diabetes-Type II, GERD, High Cholesterol, Hypertension Additional Past Medical Histor: ULCERATIVE COLITIS Past Surgical History: Hysterectomy Additional Past Surgical Histo: HERNIA REPAIR, FISTULA REPAIR, RECTAL PROLAPSE, PLATE & SCREWS IN CHEST Smoking Status: Former Smoker Additional Information: quit December 2017 Alcohol Use: Occasionally Drug Use: None General Adult EDM: Chief Complaint: FLANK PAIN HPI: HPI: Patient is a 50 year old female with a history of high cholesterol, hypertension, diabetes type 2, who presents the ED today complaining of 9 out of 10 sharp and constant right flank pain, symptoms began at 1030 this morning. Patient denies any nausea vomiting. Denies anything exacerbating or relieving her pain. Review of Systems: Review of Systems: Constitutional: Denies fever or chills. [] Eyes: Denies change in visual acuity. [] HENT: Denies nasal congestion or sore throat. [] Respiratory: Denies cough or shortness of breath. [] Cardiovascular: Denies chest pain or edema. [] GI: Denies abdominal pain, nausea, vomiting, bloody stools or diarrhea. [] : Reports right flank pain. Denies dysuria. [] Musculoskeletal: Denies back pain or joint pain. [] Integument: Denies rash. [] Neurologic: Denies headache, focal weakness or sensory changes. [] Psychiatric: Denies depression or anxiety. [] Heart Score: C/O Chest Pain: N/A Risk Factors: Risk Factors: DM, Current or recent (<one month) smoker, HTN, HLP, family history of CAD, obesity. Risk Scores: Score 0 - 3: 2.5% MACE over next 6 weeks - Discharge Home Score 4 - 6: 20.3% MACE over next 6 weeks - Admit for Clinical Observation Score 7 - 10: 72.7% MACE over next 6 weeks - Early Invasive Strategies Allergies: Allergies: Allergies Coded Allergies Type Severity Reaction Last Updated Verified cephalexin Allergy Intermediate rash, red ears 08/29/18 Yes ketorolac Allergy Intermediate HIVES 11/22/18 Yes prochlorperazine Allergy Intermediate 11/24/16 Yes Physical Exam: PE: Constitutional: Well developed, well nourished, no acute distress, non-toxic appearance. [] HENT: Normocephalic, atraumatic, bilateral external ears normal, oropharynx moist, no oral exudates, nose normal. [] Eyes: PERRLA, EOMI, conjunctiva normal, no discharge. [] Neck: Normal range of motion, no tenderness, supple, no stridor. [] Cardiovascular:Heart rate regular rhythm, no murmur [] Lungs & Thorax: Bilateral breath sounds clear to auscultation [] Abdomen: Bowel sounds normal, soft, no tenderness, no masses, no pulsatile masses. [] Skin: Warm, dry, no erythema, no rash. [] Back: No tenderness, no CVA tenderness. [] Extremities: No tenderness, no cyanosis, no clubbing, ROM intact, no edema. [] Neurologic: Alert and oriented X 3, normal motor function, normal sensory function, no focal deficits noted. [] Psychologic: Patient is tearful Current Patient Data: Vital Signs: Vital Signs Date Time Temp Pulse Resp B/P (MAP) Pulse Ox O2 Delivery O2 Flow Rate FiO2 04/10/21 14:30 98.9 77 20 154/92 (112) 97 Room Air 98.9 EKG: EKG: [] Radiology/Procedures: Radiology/Procedures: [] Course & Med Decision Making: Course & Med Decision Making Pertinent Labs and Imaging studies reviewed. (See chart for details) This is a 50-year-old female patient well-known to this ED for pain related complaints coming today complaining of flank pain since 1030 today. Patient's urine analysis was noted for large amount of blood, no infection. I requested a straight cath on this patient. Patient refused and walked away. Off note patient was seen in the ED on January 17, 2021, she had urine positive for blood, a straight cath was done and her urine was negative for blood. Dragon Disclaimer: Dragon Disclaimer: This electronic medical record was generated, in whole or in part, using a voice recognition dictation system. Departure Departure Impression: Primary Impression: Flank pain Disposition: LEFT AGAINST MEDICAL ADVICE Condition: STABLE Referrals: NO PCP (PCP) COURTNEY RAYMOND MARINE CONSULTANT Apr 10, 2021 15:02
[2021-04-10 15:14] LABS: BILIRUBIN,URINE NEGATIVE (NEG); CLARITY,URINE CLEAR; COLOR,URINE YELLOW; NITRITE,URINE NEGATIVE (NEG); PH,URINE 5.5 (<5.0-8.0); PROTEIN,URINE NEGATIVE (NEG-TRACE); UROBILINOGEN,URINE 0.2 mg/dL (0.2 mg/dL)
[2021-04-10 15:27] LABS: HYALINE CASTS, URINE FEW /HPF
[2021-04-10 15:28] LABS: BACTERIA,URINE 0 /HPF (0-FEW); RBC,URINE >40 /HPF (0-2)
== END 2021-04-10 15:55 | disposition left against medical advice (07) ==
LOC: ER 13:47
DX: R10.9 Unspecified abdominal pain (principal); K21.9 Gastro-esophageal reflux disease without esophagitis; E78.00 Pure hypercholesterolemia, unspecified; E11.9 Type 2 diabetes mellitus without complications; I10 Essential (primary) hypertension; Z90.710 Acquired absence of both cervix and uterus; Z87.891 Personal history of nicotine dependence; Z88.1 Allergy status to other antibiotic agents; Z88.6 Allergy status to analgesic agent; Z88.8 Allergy status to other drugs, medicaments and biological substances
CPT/HCPCS: 81001; 99283

== ENCOUNTER → 2021-04-30 | Emergency (ER) | payer BC ==
[2021-04-10 14:30] VITALS: BP 154/92
== END | disposition left against medical advice (07) ==
LOC: ER 12:05
DX: R10.32 Left lower quadrant pain (principal); R11.2 Nausea with vomiting, unspecified; Z53.21 Procedure and treatment not carried out due to patient leaving prior to being seen by health care provider

== ENCOUNTER 2021-08-04 15:40 | Emergency (ER) | payer BC ==
[~2021-08-04 15:40] MED LIST changes: -DULO60CA6 PO; +DULO60CA7 PO
== END 2021-08-04 16:40 | disposition left against medical advice (07) ==
LOC: ER 15:40
DX: R10.9 Unspecified abdominal pain (principal); R11.10 Vomiting, unspecified; R19.7 Diarrhea, unspecified; Z53.21 Procedure and treatment not carried out due to patient leaving prior to being seen by health care provider

== ENCOUNTER 2021-09-05 20:57 | Observation (INO) | payer BC ==
[~2021-09-05] VITALS: Ht 162.6 cm; Wt 97.3 kg
[~2021-09-05 20:57] MED LIST changes: +CYCL10TA19 PO; -CYCL10TA2 PO
[2021-09-05 21:43] LABS: BILIRUBIN,URINE NEGATIVE (NEG); CLARITY,URINE CLEAR; COLOR,URINE YELLOW; NITRITE,URINE NEGATIVE (NEG); PROTEIN,URINE NEGATIVE (NEG-TRACE); UROBILINOGEN,URINE 0.2 mg/dL (0.2 mg/dL)
[2021-09-05] MEDS ORDERED: MORPHINE SULFATE 4 MG/ML INJ. IVP ONE (21:45)
[2021-09-05] MEDS ORDERED: ONDANSETRON PF 4 MG/2 ML VIAL. IVP ONE (21:45)
[2021-09-05 21:51] LABS: BACTERIA,URINE 0 /HPF (0-FEW); RBC,URINE 20-40 /HPF (0-2)
[2021-09-05] MEDS ORDERED: HYDROmorphone 2 MG/ML VIAL IVP ONE (22:30)
[2021-09-06 00:07] LABS: BASO % 1 % (0-3); EOS % 0 % (0-3); HEMATOCRIT 29.2 % (36.0-47.0); HEMOGLOBIN 9.9 g/dL (12.0-15.5); LYMPH # 0.6 x10^3/uL (1.0-4.8); LYMPH % 9 % (24-48); MEAN CORPUSCULAR HEMOGLOBIN 28 pg (25-35); MEAN CORPUSCULAR HGB CONC 34 g/dL (31-37); MEAN CORPUSCULAR VOLUME 82 fL (79-100); MONO # 0.6 x10^3/uL (0.0-1.1); MONO % 9 % (0-9); NEUT # 5.5 x10^3/uL (1.8-7.7); NEUT % 82 % (31-73); PLATELET COUNT 258 x10^3/uL (140-400); RED BLOOD COUNT 3.59 x10^6/uL (3.50-5.40); RED CELL DISTRIBUTION WIDTH 14.4 % (11.5-14.5); WHITE BLOOD COUNT 6.7 x10^3/uL (4.0-11.0)
[2021-09-06 00:16] LABS: CALCIUM 9.2 mg/dL (8.5-10.1); CREATININE 0.7 mg/dL (0.6-1.0); GFR 87.9
[2021-09-06 00:22] LABS: ALBUMIN 3.6 g/dL (3.4-5.0); TOTAL BILIRUBIN 0.2 mg/dL (0.2-1.0); TOTAL PROTEIN 7.3 g/dL (6.4-8.2)
[2021-09-06] MEDS ORDERED: CONTRAST GIVEN. MC PRN (00:30)
[2021-09-06] MEDS ORDERED: IOHEXOL 300 MG/ML 100ML VIAL. IV ONE (00:30)
--- NOTE | 2021-09-06 01:28 | RAD ---
PQRS Compliance Statement: One or more of the following individualized dose reduction techniques were utilized for this examinat ion: 1. Automated exposure control 2. Adjustment of the mA and/or kV according to patient size 3. Use of iterative reconstruction technique CT ABDOMEN+PELVIS W Clinical Indication: Reason: llq pain, hx UC or diverticulitis, Comparison: CT abdomen and pelvis with contrast, 5 days ago, [facility]. CT abdomen and pelvis with contrast, 11/27/2020. Technique: Helical CT imaging of the abdomen and pelvis is performed after 75 cc of Omnipaque 300 IV contrast. Oral contrast not administered. Findings: There is an unchanged 3 mm nodule in the left lower lobe, image 13. Lung bases otherwise clear. Cardi ac size normal. Cholecystectomy. Liver, spleen, pancreas, adrenal glands, abdominal aorta, and kidneys are normal. The stomach is unremarkable. There is a small fat-containing periumbilical hernia. There is no small bowel obstruction. Appendectomy. There is no colon wall thickening. There is mild distal colon divert iculosis. No abdominal adenopathy or free fluid. The urinary bladder is normal. Hysterectomy. No pelvic free fluid. There is old compression fracture treated with vertebroplasty of the L1 vertebral body. There is mild old compression fracture superior endplate of T12. Old fracture of the right ischium. Stable probabl e findings of osteonecrosis of the femoral heads. No deformity. IMPRESSION: 1. No acute abdominal or pelvic abnormality. 2. Mild distal colon diverticulosis. Electronically signed by: Brett Brown MD (09/06/2021 1:26 AM) [facility]
--- NOTE | 2021-09-06 01:38 | PHYS DOC ---
Past Medical History Past Medical History: Anxiety, Diabetes-Type II, GERD, High Cholesterol, Hypertension Additional Past Medical Histor: ULCERATIVE COLITIS Past Surgical History: Appendectomy, Cholecystectomy, Hysterectomy Additional Past Surgical Histo: HERNIA REPAIR, FISTULA REPAIR, RECTAL PROLAPSE, PLATE & SCREWS IN CHEST Smoking Status: Former Smoker Alcohol Use: None Drug Use: None General Adult EDM: Chief Complaint: ABDOMINAL PAIN HPI: HPI: Patient is a 51 year old female with history of ulcerative colitis, diverticulitis who presents with left lower quadrant pain, nausea/vomiting, and diarrhea. Has noted bright red blood in her stool as well. Pain started at 5 AM on 1112 (earlier in the day) and persisted throughout. She takes sul fasalazine for her ulcerative colitis, and is instructed to double her dose for flare which she is done throughout the day. Has had no improvement in her pain. Denies fever/chills. No dysuria, urgency, frequency. No flank pain. Denies vaginal bleeding or discharge. States that she has not had a flare like this in approximately 4 to 5 months. Often gets care at [facility]. W as last admitted here in 2019. Is in the process of getting a new GI doctor Sulfasalazine is reportedly currently managed by primary care doctor Review of Systems: Review of Systems: Constitutional: Denies fever or chills. [] Eyes: Denies change in visual acuity. [] HENT: Denies nasal congestion or sore throat. [] Respiratory: Denies cough or shortness of breath. [] Cardiovascular: Denies chest pain or edema. [] GI\ reports abdominal pain, nausea, vomiting, bloody stools, and diarrhea. : Denies dysuria. [] Musculoskeletal: Denies back pain or joint pain. [] Integument: Denies rash. [] Neurologic: Denies headache, focal weakness or sensory changes. [] Endocrine: Denies polyuria or polydipsia. [] Lymphatic: Denies swollen glands. [] Psychiatric: Denies depression or anxiety. [] Heart Score: C/O Chest Pain: No Risk Factors: Risk Factors: DM, Current or recent (<one month) smoker, HTN, HLP, family history of CAD, obesity. Risk Scores: Score 0 - 3: 2.5% MACE over next 6 weeks - Discharge Home Score 4 - 6: 20.3% MACE over next 6 weeks - Admit for Clinical Observation Score 7 - 10: 72.7% MACE over next 6 weeks - Early Invasive Strategies Current Medications: Current Medications Medications (Trade) Dose Ordered Sig/[facility] Start Time Stop Time Status Last Admin Dose Admin Hydromorphone HCl (Dilaudid) 1 mg 1X ONCE 09/05/21 22:30 09/05/21 22:31 DC 09/06/21 00:12 1 MG Info (CONTRAST GIVEN -- Rx MONITORING) 1 each PRN DAILY PRN 09/06/21 00:30 09/08/21 00:29 Iohexol (Omnipaque 300 Mg/ml) 75 ml 1X ONCE 09/06/21 00:30 09/06/21 00:31 DC 09/06/21 00:59 75 ML Morphine Sulfate (Morphine Sulfate) 4 mg 1X ONCE 09/05/21 21:45 09/05/21 22:24 DC Ondansetron HCl (Zofran) 4 mg 1X ONCE 09/05/21 21:45 09/05/21 21:51 DC 09/06/21 00:11 4 MG Allergies: Allergies: Allergies Coded Allergies Type Severity Reaction Last Updated Verified cephalexin Allergy Intermediate rash, red ears 08/29/18 Yes ketorolac Allergy Intermediate HIVES 11/22/18 Yes prochlorperazine Allergy Intermediate 11/24/16 Yes droperidol Adverse Reaction Mild anxiety 09/06/21 Yes Physical Exam: PE: Constitutional: Appears uncomfortable, clutching lower abdomen HENT: Normocephalic, atraumatic, bilateral external ears normal, oropharynx moist, no oral exudates, nose normal. [] Eyes: PERRLA, EOMI, conjunctiva normal, no discharge. [] Neck: Normal range of motion, no tenderness, supple, no stridor. [] Cardiovascular: Tachycardic, regular. Lungs & Thorax: Bilateral breath sounds clear to auscultation [] Abdomen: Left upper and left lower tenderness to palpation with involuntary guarding. No right-sided tenderness. No rigidity or rebound. Skin: Warm, dry, no erythema, no rash. [] Extremities: No tenderness, no cyanosis, no clubbing, ROM intact, no edema. [] Neurologic: Alert and oriented X 3, normal motor function, normal sensory function, no focal deficits noted. [] Psychologic: Affect normal, judgement normal, mood normal. [] Current Patient Data: Labs: Laboratory Tests Test 09/05/21 21:02 09/05/21 23:59 Urine Color Yellow Urine Clarity Clear Urine pH 6.0 (<5.0-8.0) Urine Specific [place] <=1.005 (1.000-1.030) Urine Protein Negative mg/dL (NEG-TRACE) Urine Glucose (UA) Negative mg/dL (NEG) Urine Ketones (Stick) Negative mg/dL (NEG) Urine Blood Large (NEG) Urine Nitrite Negative (NEG) Urine Bilirubin Negative (NEG) Urine Urobilinogen Dipstick 0.2 mg/dL (0.2 mg/dL) Urine Leukocyte Esterase Small (NEG) Urine RBC 20-40 /HPF (0-2) Urine WBC 1-4 /HPF (0-4) Urine Squamous Epithelial Cells Occ /LPF Urine Bacteria 0 /HPF (0-FEW) White Blood Count 6.7 x10^3/uL (4.0-11.0) Red Blood Count 3.59 x10^6/uL (3.50-5.40) Hemoglobin 9.9 g/dL (12.0-15.5) L Hematocrit 29.2 % (36.0-47.0) L Mean Corpuscular Volume 82 fL (79-100) Mean Corpuscular Hemoglobin 28 pg (25-35) Mean Corpuscular Hemoglobin Concent 34 g/dL (31-37) Red Cell Distribution Width 14.4 % (11.5-14.5) Platelet Count 258 x10^3/uL (140-400) Neutrophils (%) (Auto) 82 % (31-73) H Lymphocytes (%) (Auto) 9 % (24-48) L Monocytes (%) (Auto) 9 % (0-9) Eosinophils (%) (Auto) 0 % (0-3) Basophils (%) (Auto) 1 % (0-3) Neutrophils # (Auto) 5.5 x10^3/uL (1.8-7.7) Lymphocytes # (Auto) 0.6 x10^3/uL (1.0-4.8) L Monocytes # (Auto) 0.6 x10^3/uL (0.0-1.1) Eosinophils # (Auto) 0.0 x10^3/uL (0.0-0.7) Basophils # (Auto) 0.0 x10^3/uL (0.0-0.2) Sodium Level 137 mmol/L (136-145) Potassium Level 4.0 mmol/L (3.5-5.1) Chloride Level 103 mmol/L (98-107) Carbon Dioxide Level 29 mmol/L (21-32) Anion Gap 5 (6-14) L Blood Urea Nitrogen 8 mg/dL (7-20) Creatinine 0.7 mg/dL (0.6-1.0) Estimated GFR (Cockcroft-Gault) 87.9 BUN/Creatinine Ratio 11 (6-20) Glucose Level 116 mg/dL (70-99) H Calcium Level 9.2 mg/dL (8.5-10.1) Total Bilirubin 0.2 mg/dL (0.2-1.0) Aspartate Amino Transferase (AST) 9 U/L (15-37) L Alanine Aminotransferase (ALT) 19 U/L (14-59) Alkaline Phosphatase 104 U/L (46-116) Total Protein 7.3 g/dL (6.4-8.2) Albumin 3.6 g/dL (3.4-5.0) Albumin/Globulin Ratio 1.0 (1.0-1.7) Laboratory Tests 09/05/21 23:59 Laboratory Tests 09/05/21 23:59 Vital Signs: Vital Signs Date Time Temp Pulse Resp B/P (MAP) Pulse Ox O2 Delivery O2 Flow Rate FiO2 09/06/21 00:12 18 97 Room Air 09/05/21 21:45 112 177/89 (118) 09/05/21 21:07 99.4 99.4 EKG: EKG: [] Radiology/Procedures: Radiology/Procedures: [] Impression: [facility] [id number] [place] [address] IMAGING REPORT Signed PATIENT: HIPOLITO NELSON ACCOUNT: [id number] : 1970 LOCATION: ER AGE: 51 SEX: F EXAM STATUS: REG ER ORD. PHYSICIAN: BINTA MARROQUIN MD REASON: llq pain, hx UC or diverticulitis, OMNI 300 75 ML IV PROCEDURE: CT ABD PELV W/ IV CONTRST ONLY PQRS Compliance Statement: One or more of the following individualized dose reduction techniques were utilized for this examination: 1. Automated exposure control 2. Adjustment of the mA and/or kV according to patient size 3. Use of iterative reconstruction technique CT ABDOMEN+PELVIS W Clinical Indication: Reason: llq pain, hx UC or diverticulitis, Comparison: CT abdomen and pelvis with contrast, 5 days ago, [facility]. CT abdomen and pelvis with contrast, 11/27/2020. Technique: Helical CT imaging of the abdomen and pelvis is performed after 75 cc of Omnipaque 300 IV contrast. Oral contrast not administered. Findings: There is an unchanged 3 mm nodule in the left lower lobe, image 13. Lung bases otherwise clear. Cardiac size normal. Cholecystectomy. Liver, spleen, pancreas, adrenal glands, abdominal aorta, and kidneys are normal. The stomach is unremarkable. There is a small fat-containing periumbilical hernia. There is no small bowel obstruction. Appendectomy. There is no colon wall thickening. There is mild distal colon diverticulosis. No abdominal adenopathy or free fluid. The urinary bladder is normal. Hysterectomy. No pelvic free fluid. There is old compression fracture treated with vertebroplasty of the L1 vertebral body. There is mild old compression fracture superior endplate of T12. Old fracture of the right ischium. 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 No deformity. IMPRESSION: 1. No acute abdominal or pelvic abnormality. 2. Mild distal colon diverticulosis. Electronically signed by: Brett Brown MD (09/06/2021 1:26 AM) [facility] DICTATED and SIGNED BY: BRETT BROWN MD DATE: 09/06/21 [id number] 0 Course & Med Decision Making: Course & Med Decision Making Pertinent Labs and Imaging studies reviewed. (See chart for details) Patient 51-year-old female with history of diverticulitis and ulcerative colitis on sulfasalazine who presents with left lower quadrant pain, nausea/vomiting, hematochezia that she states is consistent with an ulcerative colitis flare. On arrival is afebrile, tachycardic to 110s, but hemodynamically stable. She appears acutely uncomfortable on examination and has focal left sided abdominal tenderness to palpation. CBC and CMP were unremarkable. UA showed RBCs, without pyuria or proteinuria. CT abdomen/pelvis did not show any acute pathology including colonic thickening, renal stone, or hydronephrosis. Most likely early ulcerative colitis flare. Is required multiple doses of IV narcotics in the emergency department and will require admission for pain control. Dragon Disclaimer: Dragon Disclaimer: This electronic medical record was generated, in whole or in part, using a voice recognition dictation system. Departure Departure Impression: Primary Impression: Left sided abdominal pain Additional Impressions: Hematochezia Nausea & vomiting Diarrhea Disposition: ADMITTED INPATIENT Admitting Physician: DAVID Bo) Condition: STABLE Referrals: NO PCP (PCP) BINTA MARROQUIN MD Sep 06, 2021 01:37
[2021-09-06] MEDS ORDERED: ONDANSETRON PF 4 MG/2 ML VIAL. IVP PRN (02:00)
[2021-09-06] MEDS ORDERED: HYDROmorphone 2 MG/ML VIAL IVP ONE (02:00)
[2021-09-06] MEDS ORDERED: IV NORMAL SALINE 1000ML BAG 1,000 ML IV ONE (02:00)
[2021-09-06] MEDS ORDERED: SIMV20TA18 PO (04:26)
[2021-09-06] MEDS ORDERED: OXYC1TAB15 PO (04:30)
[2021-09-06] MEDS: MORPHINE SULFATE 4 MG/ML INJ. IVP PRN ×3 (04:49→09:58)
[2021-09-06 07:00] VITALS: BP 124/92
--- NOTE | 2021-09-06 08:54 | PDOC1 ---
History and Physical Date of Service: DOS: DATE: 09/06/21 TIME: 08:48 Chief Complaint: Chief Complain: Abdominal pain History of Present Illness: HPI: History obtained from discussion with the ED physician and chart review 51 year old female with history of ulcerative colitis, diverticulitis who presents with left lower quadrant pain, nausea/vomiting, and diarrhea. Has noted bright red blood in her stool as well. Pain started at 5 AM on 09/05 (earlier in the day) and persisted throughout. She takes sulfasalazine for her ulcerative colitis, and is instructed to double her dose for flare which she is done throughout the day. Has had no improvement in her pain. Denies fever/chills. No dysuria, urgency, frequency. No flank pain. Denies vaginal bleeding or discharge. States that she has not had a flare like this in approximately 4 to 5 months. Often gets care at [facility]. Was last admitted here in 2019. Is in the process of getting a new GI doctor Sulfasalazine is reportedly currently managed by primary care doctor Past Medical/Surgical History: PMH/PSH: Past Medical History: Anxiety, Diabetes-Type II, GERD, High Cholesterol, Hypertension, ULCERATIVE COLITIS Past Surgical History: Appendectomy, Cholecystectomy, Hysterectomy, HERNIA REPAIR, FISTULA REPAIR, RECTAL PROLAPSE, PLATE & SCREWS IN CHEST Allergies: Allergies: Coded Allergies: cephalexin (Verified Allergy, Intermediate, rash, red ears, 08/29/18) ketorolac (Verified Allergy, Intermediate, HIVES, 11/22/18) prochlorperazine (Verified Allergy, Intermediate, 11/24/16) droperidol (Verified Adverse Reaction, Mild, anxiety, 09/06/21) Family History: Family History: Reviewed with no relevant findings Social History: Social History: Smoking Status: Former Smoker Alcohol Use: None Drug Use: None Current Medications: Current Medications Current Medications Morphine Sulfate (Morphine Sulfate) 4 mg 1X ONCE IVP ; Start 09/05/21 at 21:45; Stop 09/05/21 at 22:24; Status DC Ondansetron HCl (Zofran) 4 mg 1X ONCE IVP Last administered on 09/06/21at 00:11; Start 09/05/21 at 21:45; Stop 09/05/21 at 21:51; Status DC Hydromorphone HCl (Dilaudid) 1 mg 1X ONCE IVP Last administered on 09/06/21at 00:12; Start 09/05/21 at 22:30; Stop 09/05/21 at 22:31; Status DC Iohexol (Omnipaque 300 Mg/ml) 75 ml 1X ONCE IV Last administered on 09/06/21at 00:59; Start 09/06/21 at 00:30; Stop 09/06/21 at 00:31; Status DC Info (CONTRAST GIVEN -- Rx MONITORING) 1 each PRN DAILY PRN [facility] SEE COMMENTS; Start 09/06/21 at 00:30; Stop 09/08/21 at 00:29 Hydromorphone HCl (Dilaudid) 1.5 mg 1X ONCE IVP Last administered on 09/06/21at 01:58; Start 09/06/21 at 02:00; Stop 09/06/21 at 02:01; Status DC Sodium Chloride 1,000 ml @ 1,000 mls/hr 1X ONCE IV Last administered on 09/06/21at 01:58; Start 09/06/21 at 02:00; Stop 09/06/21 at 02:59; Status DC Ondansetron HCl (Zofran) 4 mg PRN Q8HRS PRN IVP NAUSEA/VOMITING; Start 09/06/21 at 02:00; Stop 09/07/21 at 01:59 Morphine Sulfate (Morphine Sulfate) 4 mg PRN Q2HR PRN IVP PAIN Last administered on 09/06/21at 07:32; Start 09/06/21 at 02:00; Stop 09/07/21 at 01:59 Active Scripts Active Lidocaine 1 Each Adh..patch 1 Each TP Q12HR PRN Keep patch in place of discomfort for 12 hours. Remove and leave patch off for next 12 hours before placement of new patch. Ondansetron Hcl 4 Mg Tablet 1 Tab PO PRN Q6HRS PRN 3 Days Zofran (Ondansetron Hcl) 4 Mg Tablet 1 Tab PO Q8HRS PRN Reported Percocet 5-325 Mg Tablet (Oxycodone/Acetaminophen) 1 Each Tablet 1 Tab PO PRN Q6HRS PRN Simvastatin 20 Mg Tablet 1 Tab PO QHS Trazodone Hcl 100 Mg Tablet 100 Mg PO HS Xanax Xr (Alprazolam) 1 Mg Tab.er.24h 2 Mg PO DAILY Cymbalta (Duloxetine Hcl) 60 Mg Capsule.dr 120 Mg PO DAILY Prevacid 24HR (Lansoprazole) 15 Mg Capsule.dr 30 Mg PO DAILY ROS: Review of Systems Review of System REVIEW OF SYSTEMS: GENERAL: Denies weakness SKIN: No bruising, hair changes or rashes. EYES: No blurred, double or loss of vision. NOSE AND THROAT: No history of nosebleeds, hoarseness or sore throat. HEART: No history of palpitations, chest pain or shortness of breath on exertion. LUNGS: Denies cough, hemoptysis, wheezing or shortness of breath. GASTROINTESTINAL: Denies changes in appetite, nausea, vomiting, diarrhea or constipation. GENITOURINARY: No history of frequency, urgency, hesitancy or nocturia. NEUROLOGIC: Denies history of numbness, tingling, or tremor. PSYCHIATRIC: No history of panic, anxiety or depression. ENDOCRINE: No history of heat or cold intolerance, polyuria or polydipsia. EXTREMITIES: Denies joint pain, pain on walking or stiffness. Physical Exam: Vital Signs: Vital Signs Date Time Temp Pulse Resp B/P (MAP) Pulse Ox O2 Delivery O2 Flow Rate FiO2 09/06/21 08:11 14 09/06/21 07:32 Room Air 09/06/21 07:00 98.4 55 124/92 (103) 94 98.4 Physcial Exam: GEN: No apparent distress. Alert and oriented HEENT: Normal cephalic, atraumatic, external auditory canals are patent EYES: Extraocular muscles are intact, pupil are equally round and reactive to light and accommodation MUSCULOSKELETAL: Well developed , well nourished, good range of motion ENDOCRINE: No thyromegaly was palpated LYMPHATICS: No cervical chain or axillary nodes were noted HEMATOPOIETIC: No bruising NECK: Supple, no JVD, no thyromegaly was noted LUNGS: Clear to auscultation in all lung whitman without rhonchi or wheezing HEART: RRR, S!, S2 present. Peripheral pulses intact, no obvious murmurs noted ABDOMEN: Soft, nontender. Positive bowel sounds, no organomegaly, normal bowel sounds EXTREMITIES: Without clubbing, cyanosis, or edema. Pedal pulses intact. Negative Homans sign NEUROLOGIC: Normal speech and tone. A&O x 3, moves all extremities, no obvious focal deficits PSYCHIATRIC: Normal affect, normal mood. Stable SKIN: No ulcerations or rashes, good skin turgor, no jaundice VASCULAR: Good capillary refill, neurovascular bundle appears to be intact Labs: Labs: Laboratory Tests Test 09/05/21 21:02 09/05/21 23:59 09/06/21 02:42 Urine Color Yellow Urine Clarity Clear Urine pH 6.0 (<5.0-8.0) Urine Specific [place] <=1.005 (1.000-1.030) Urine Protein Negative mg/dL (NEG-TRACE) Urine Glucose (UA) Negative mg/dL (NEG) Urine Ketones (Stick) Negative mg/dL (NEG) Urine Blood Large (NEG) Urine Nitrite Negative (NEG) Urine Bilirubin Negative (NEG) Urine Urobilinogen Dipstick 0.2 mg/dL (0.2 mg/dL) Urine Leukocyte Esterase Small (NEG) Urine RBC 20-40 /HPF (0-2) Urine WBC 1-4 /HPF (0-4) Urine Squamous Epithelial Cells Occ /LPF Urine Bacteria 0 /HPF (0-FEW) White Blood Count 6.7 x10^3/uL (4.0-11.0) Red Blood Count 3.59 x10^6/uL (3.50-5.40) Hemoglobin 9.9 g/dL (12.0-15.5) Hematocrit 29.2 % (36.0-47.0) Mean Corpuscular Volume 82 fL (79-100) Mean Corpuscular Hemoglobin 28 pg (25-35) Mean Corpuscular Hemoglobin Concent 34 g/dL (31-37) Red Cell Distribution Width 14.4 % (11.5-14.5) Platelet Count 258 x10^3/uL (140-400) Neutrophils (%) (Auto) 82 % (31-73) Lymphocytes (%) (Auto) 9 % (24-48) Monocytes (%) (Auto) 9 % (0-9) Eosinophils (%) (Auto) 0 % (0-3) Basophils (%) (Auto) 1 % (0-3) Neutrophils # (Auto) 5.5 x10^3/uL (1.8-7.7) Lymphocytes # (Auto) 0.6 x10^3/uL (1.0-4.8) Monocytes # (Auto) 0.6 x10^3/uL (0.0-1.1) Eosinophils # (Auto) 0.0 x10^3/uL (0.0-0.7) Basophils # (Auto) 0.0 x10^3/uL (0.0-0.2) Sodium Level 137 mmol/L (136-145) Potassium Level 4.0 mmol/L (3.5-5.1) Chloride Level 103 mmol/L (98-107) Carbon Dioxide Level 29 mmol/L (21-32) Anion Gap 5 (6-14) Blood Urea Nitrogen 8 mg/dL (7-20) Creatinine 0.7 mg/dL (0.6-1.0) Estimated GFR (Cockcroft-Gault) 87.9 BUN/Creatinine Ratio 11 (6-20) Glucose Level 116 mg/dL (70-99) Calcium Level 9.2 mg/dL (8.5-10.1) Total Bilirubin 0.2 mg/dL (0.2-1.0) Aspartate Amino Transf (AST/SGOT) 9 U/L (15-37) Alanine Aminotransferase (ALT/SGPT) 19 U/L (14-59) Alkaline Phosphatase 104 U/L (46-116) Total Protein 7.3 g/dL (6.4-8.2) Albumin 3.6 g/dL (3.4-5.0) Albumin/Globulin Ratio 1.0 (1.0-1.7) SARS-CoV-2 Antigen (Rapid) Negative (NEGATIVE) Laboratory Tests Test 09/05/21 21:02 09/05/21 23:59 09/06/21 02:42 Urine Color Yellow Urine Clarity Clear Urine pH 6.0 (<5.0-8.0) Urine Specific [place] <=1.005 (1.000-1.030) Urine Protein Negative mg/dL (NEG-TRACE) Urine Glucose (UA) Negative mg/dL (NEG) Urine Ketones (Stick) Negative mg/dL (NEG) Urine Blood Large (NEG) Urine Nitrite Negative (NEG) Urine Bilirubin Negative (NEG) Urine Urobilinogen Dipstick 0.2 mg/dL (0.2 mg/dL) Urine Leukocyte Esterase Small (NEG) Urine RBC 20-40 /HPF (0-2) Urine WBC 1-4 /HPF (0-4) Urine Squamous Epithelial Cells Occ /LPF Urine Bacteria 0 /HPF (0-FEW) White Blood Count 6.7 x10^3/uL (4.0-11.0) Red Blood Count 3.59 x10^6/uL (3.50-5.40) Hemoglobin 9.9 g/dL (12.0-15.5) Hematocrit 29.2 % (36.0-47.0) Mean Corpuscular Volume 82 fL (79-100) Mean Corpuscular Hemoglobin 28 pg (25-35) Mean Corpuscular Hemoglobin Concent 34 g/dL (31-37) Red Cell Distribution Width 14.4 % (11.5-14.5) Platelet Count 258 x10^3/uL (140-400) Neutrophils (%) (Auto) 82 % (31-73) Lymphocytes (%) (Auto) 9 % (24-48) Monocytes (%) (Auto) 9 % (0-9) Eosinophils (%) (Auto) 0 % (0-3) Basophils (%) (Auto) 1 % (0-3) Neutrophils # (Auto) 5.5 x10^3/uL (1.8-7.7) Lymphocytes # (Auto) 0.6 x10^3/uL (1.0-4.8) Monocytes # (Auto) 0.6 x10^3/uL (0.0-1.1) Eosinophils # (Auto) 0.0 x10^3/uL (0.0-0.7) Basophils # (Auto) 0.0 x10^3/uL (0.0-0.2) Sodium Level 137 mmol/L (136-145) Potassium Level 4.0 mmol/L (3.5-5.1) Chloride Level 103 mmol/L (98-107) Carbon Dioxide Level 29 mmol/L (21-32) Anion Gap 5 (6-14) Blood Urea Nitrogen 8 mg/dL (7-20) Creatinine 0.7 mg/dL (0.6-1.0) Estimated GFR (Cockcroft-Gault) 87.9 BUN/Creatinine Ratio 11 (6-20) Glucose Level 116 mg/dL (70-99) Calcium Level 9.2 mg/dL (8.5-10.1) Total Bilirubin 0.2 mg/dL (0.2-1.0) Aspartate Amino Transf (AST/SGOT) 9 U/L (15-37) Alanine Aminotransferase (ALT/SGPT) 19 U/L (14-59) Alkaline Phosphatase 104 U/L (46-116) Total Protein 7.3 g/dL (6.4-8.2) Albumin 3.6 g/dL (3.4-5.0) Albumin/Globulin Ratio 1.0 (1.0-1.7) SARS-CoV-2 Antigen (Rapid) Negative (NEGATIVE) Images: Images PROCEDURE: CT ABD PELV W/ IV CONTRST ONLY PQRS Compliance Statement: One or more of the following individualized dose reduction techniques were utilized for this examination: 1. Automated exposure control 2. Adjustment of the mA and/or kV according to patient size 3. Use of iterative reconstruction technique CT ABDOMEN+PELVIS W Clinical Indication: Reason: llq pain, hx UC or diverticulitis, Comparison: CT abdomen and pelvis with contrast, 5 days ago, [facility]. CT abdomen and pelvis with contrast, 11/27/2020. Technique: Helical CT imaging of the abdomen and pelvis is performed after 75 cc of Omnipaque 300 IV contrast. Oral contrast not administered. Findings: There is an unchanged 3 mm nodule in the left lower lobe, image 13. Lung bases otherwise clear. Cardiac size normal. Cholecystectomy. Liver, spleen, pancreas, adrenal glands, abdominal aorta, and kidneys are normal. The stomach is unremarkable. There is a small fat-containing periumbilical hernia. There is no small bowel obstruction. Appendectomy. There is no colon wall thickening. There is mild distal colon diverticulosis. No abdominal adenopathy or free fluid. The urinary bladder is normal. Hysterectomy. No pelvic free fluid. There is old compression fracture treated with vertebroplasty of the L1 vertebral body. There is mild old compression fracture superior endplate of T12. Old fracture of the right ischium. 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 No deformity. IMPRESSION: 1. No acute abdominal or pelvic abnormality. 2. Mild distal colon diverticulosis. Assessment/Plan Assessment/Plan Acute abdominal pain, concerning for ulcerative colitis flare versus diverticulitis Anemia, possible acute rectal GIB History of diabetes mellitus type 2 History of GERD History of anxiety History of ulcerative colitis on sulfasalazine Admit to hospitalist service for further management GI consult Continue Martínez IV antibiotics Pending stool studies pending ESR/CRP Continue IV fluids Lovenox for DVT prophylaxis Protonix GI prophylaxis ADA diet CODE STATUS full Discussed with RN and SW Disposition inpatient management as above DPOA: Father, Thomas Marks Justifications for Admission Other Justification ADAM LOWERY MD Sep 06, 2021 08:54
--- NOTE | 2021-09-06 09:47 | PDOC2 ---
CONSULT Date of Consult Date of Consult DATE: 09/06/21 TIME: 09:46 Reason for Consult Reason for Consult: LLQ abd pain/Hx UC/diverticulosis Past Medical History Cardiovascular: Hyperlipidemia Pulmonary: No pertinent hx CENTRAL NERVOUS SYSTEM: Other GI: GERD, Inflam bowel disease, Other Heme/Onc: Anemia NOS Hepatobiliary: Cholelithiasis Psych: Anxiety, Depression Musculoskeletal: Osteoarthritis, Other Rheumatologic: No pertinent hx Infectious disease: No pertinent hx Renal/: UTI Endocrine: No pertinent hx Past Surgical History Past Surgical History: Appendectomy, Cholecystectomy, Hernia Repair, Hysterectomy, Other Family History Family History: Depression, High Cholestrol Social History Social History: Parent ALCOHOL: occassional Drugs: Marijuana Current Problem List Problem List Problems Medical Problems: (1) Diarrhea Status: Acute (2) Hematochezia Status: Acute (3) Left sided abdominal pain Status: Acute (4) Nausea & vomiting Status: Acute Current Medications Current Medications Current Medications Morphine Sulfate (Morphine Sulfate) 4 mg 1X ONCE IVP ; Start 09/05/21 at 21:45; Stop 09/05/21 at 22:24; Status DC Ondansetron HCl (Zofran) 4 mg 1X ONCE IVP Last administered on 09/06/21at 00:11; Start 09/05/21 at 21:45; Stop 09/05/21 at 21:51; Status DC Hydromorphone HCl (Dilaudid) 1 mg 1X ONCE IVP Last administered on 09/06/21at 00:12; Start 09/05/21 at 22:30; Stop 09/05/21 at 22:31; Status DC Iohexol (Omnipaque 300 Mg/ml) 75 ml 1X ONCE IV Last administered on 09/06/21at 00:59; Start 09/06/21 at 00:30; Stop 09/06/21 at 00:31; Status DC Info (CONTRAST GIVEN -- Rx MONITORING) 1 each PRN DAILY PRN [facility] SEE COMMENTS; Start 09/06/21 at 00:30; Stop 09/08/21 at 00:29 Hydromorphone HCl (Dilaudid) 1.5 mg 1X ONCE IVP Last administered on 09/06/21at 01:58; Start 09/06/21 at 02:00; Stop 09/06/21 at 02:01; Status DC Sodium Chloride 1,000 ml @ 1,000 mls/hr 1X ONCE IV Last administered on 09/06/21at 01:58; Start 09/06/21 at 02:00; Stop 09/06/21 at 02:59; Status DC Ondansetron HCl (Zofran) 4 mg PRN Q8HRS PRN IVP NAUSEA/VOMITING; Start 09/06/21 at 02:00; Stop 09/07/21 at 01:59 Morphine Sulfate (Morphine Sulfate) 4 mg PRN Q2HR PRN IVP PAIN Last administered on 09/06/21at 07:32; Start 09/06/21 at 02:00; Stop 09/07/21 at 01 :59 Ciprofloxacin/ Dextrose 200 ml @ 200 mls/hr Q12HR IV ; Start 09/06/21 at 21:00; Status UNV Active Scripts Active Lidocaine 1 Each Adh..patch 1 Each TP Q12HR PRN Keep patch in place of discomfort for 12 hours. Remove and leave patch off for next 12 hours before placement of new patch. Ondansetron Hcl 4 Mg Tablet 1 Tab PO PRN Q6HRS PRN 3 Days Zofran (Ondansetron Hcl) 4 Mg Tablet 1 Tab PO Q8HRS PRN Reported Percocet 5-325 Mg Tablet (Oxycodone/Acetaminophen) 1 Each Tablet 1 Tab PO PRN Q6HRS PRN Simvastatin 20 Mg Tablet 1 Tab PO QHS Trazodone Hcl 100 Mg Tablet 100 Mg PO HS Xanax Xr (Alprazolam) 1 Mg Tab.er.24h 2 Mg PO DAILY Cymbalta (Duloxetine Hcl) 60 Mg Capsule.dr 120 Mg PO DAILY Prevacid 24HR (Lansoprazole) 15 Mg Capsule.dr 30 Mg PO DAILY Allergies Allergies: Coded Allergies: cephalexin (Verified Allergy, Intermediate, rash, red ears, 08/29/18) ketorolac (Verified Allergy, Intermediate, HIVES, 11/22/18) prochlorperazine (Verified Allergy, Intermediate, 11/24/16) droperidol (Verified Adverse Reaction, Mild, anxiety, 09/06/21) Vitals VITALS Vital Signs Date Time Temp Pulse Resp B/P (MAP) Pulse Ox O2 Delivery O2 Flow Rate FiO2 09/06/21 08:11 14 09/06/21 07:32 Room Air 09/06/21 07:00 98.4 55 124/92 (103 94 98.4 Labs Labs Laboratory Tests Test 09/05/21 21:02 09/05/21 23:59 09/06/21 02:42 Urine Color Yellow Urine Clarity Clear Urine pH 6.0 (<5.0-8.0) Urine Specific [place] <=1.005 (1.000-1.030) Urine Protein Negative mg/dL (NEG-TRACE) Urine Glucose (UA) Negative mg/dL (NEG) Urine Ketones (Stick) Negative mg/dL (NEG) Urine Blood Large (NEG) Urine Nitrite Negative (NEG) Urine Bilirubin Negative (NEG) Urine Urobilinogen Dipstick 0.2 mg/dL (0.2 mg/dL) Urine Leukocyte Esterase Small (NEG) Urine RBC 20-40 /HPF (0-2) Urine WBC 1-4 /HPF (0-4) Urine Squamous Epithelial Cells Occ /LPF Urine Bacteria 0 /HPF (0-FEW) White Blood Count 6.7 x10^3/uL (4.0-11.0) Red Blood Count 3.59 x10^6/uL (3.50-5.40) Hemoglobin 9.9 g/dL (12.0-15.5) Hematocrit 29.2 % (36.0-47.0) Mean Corpuscular Volume 82 fL (79-100) Mean Corpuscular Hemoglobin 28 pg (25-35) Mean Corpuscular Hemoglobin Concent 34 g/dL (31-37) Red Cell Distribution Width 14.4 % (11.5-14.5) Platelet Count 258 x10^3/uL (140-400) Neutrophils (%) (Auto) 82 % (31-73) Lymphocytes (%) (Auto) 9 % (24-48) Monocytes (%) (Auto) 9 % (0-9) Eosinophils (%) (Auto) 0 % (0-3) Basophils (%) (Auto) 1 % (0-3) Neutrophils # (Auto) 5.5 x10^3/uL (1.8-7.7) Lymphocytes # (Auto) 0.6 x10^3/uL (1.0-4.8) Monocytes # (Auto) 0.6 x10^3/uL (0.0-1.1) Eosinophils # (Auto) 0.0 x10^3/uL (0.0-0.7) Basophils # (Auto) 0.0 x10^3/uL (0.0-0.2) Sodium Level 137 mmol/L (136-145) Potassium Level 4.0 mmol/L (3.5-5.1) Chloride Level 103 mmol/L (98-107) Carbon Dioxide Level 29 mmol/L (21-32) Anion Gap 5 (6-14) Blood Urea Nitrogen 8 mg/dL (7-20) Creatinine 0.7 mg/dL (0.6-1.0) Estimated GFR (Cockcroft-Gault) 87.9 BUN/Creatinine Ratio 11 (6-20) Glucose Level 116 mg/dL (70-99) Calcium Level 9.2 mg/dL (8.5-10.1) Total Bilirubin 0.2 mg/dL (0.2-1.0) Aspartate Amino Transf (AST/SGOT) 9 U/L (15-37) Alanine Aminotransferase (ALT/SGPT) 19 U/L (14-59) Alkaline Phosphatase 104 U/L (46-116) Total Protein 7.3 g/dL (6.4-8.2) Albumin 3.6 g/dL (3.4-5.0) Albumin/Globulin Ratio 1.0 (1.0-1.7) SARS-CoV-2 Antigen (Rapid) Negative (NEGATIVE) Laboratory Tests Test 09/05/21 21:02 09/05/21 23:59 09/06/21 02:42 Urine Color Yellow Urine Clarity Clear Urine pH 6.0 (<5.0-8.0) Urine Specific [place] <=1.005 (1.000-1.030) Urine Protein Negative mg/dL (NEG-TRACE) Urine Glucose (UA) Negative mg/dL (NEG) Urine Ketones (Stick) Negative mg/dL (NEG) Urine Blood Large (NEG) Urine Nitrite Negative (NEG) Urine Bilirubin Negative (NEG) Urine Urobilinogen Dipstick 0.2 mg/dL (0.2 mg/dL) Urine Leukocyte Esterase Small (NEG) Urine RBC 20-40 /HPF (0-2) Urine WBC 1-4 /HPF (0-4) Urine Squamous Epithelial Cells Occ /LPF Urine Bacteria 0 /HPF (0-FEW) White Blood Count 6.7 x10^3/uL (4.0-11.0) Red Blood Count 3.59 x10^6/uL (3.50-5.40) Hemoglobin 9.9 g/dL (12.0-15.5) Hematocrit 29.2 % (36.0-47.0) Mean Corpuscular Volume 82 fL (79-100) Mean Corpuscular Hemoglobin 28 pg (25-35) Mean Corpuscular Hemoglobin Concent 34 g/dL (31-37) Red Cell Distribution Width 14.4 % (11.5-14.5) Platelet Count 258 x10^3/uL (140-400) Neutrophils (%) (Auto) 82 % (31-73) Lymphocytes (%) (Auto) 9 % (24-48) Monocytes (%) (Auto) 9 % (0-9) Eosinophils (%) (Auto) 0 % (0-3) Basophils (%) (Auto) 1 % (0-3) Neutrophils # (Auto) 5.5 x10^3/uL (1.8-7.7) Lymphocytes # (Auto) 0.6 x10^3/uL (1.0-4.8) Monocytes # (Auto) 0.6 x10^3/uL (0.0-1.1) Eosinophils # (Auto) 0.0 x10^3/uL (0.0-0.7) Basophils # (Auto) 0.0 x10^3/uL (0.0-0.2) Sodium Level 137 mmol/L (136-145) Potassium Level 4.0 mmol/L (3.5-5.1) Chloride Level 103 mmol/L (98-107) Carbon Dioxide Level 29 mmol/L (21-32) Anion Gap 5 (6-14) Blood Urea Nitrogen 8 mg/dL (7-20) Creatinine 0.7 mg/dL (0.6-1.0) Estimated GFR (Cockcroft-Gault) 87.9 BUN/Creatinine Ratio 11 (6-20) Glucose Level 116 mg/dL (70-99) Calcium Level 9.2 mg/dL (8.5-10.1) Total Bilirubin 0.2 mg/dL (0.2-1.0) Aspartate Amino Transf (AST/SGOT) 9 U/L (15-37) Alanine Aminotransferase (ALT/SGPT) 19 U/L (14-59) Alkaline Phosphatase 104 U/L (46-116) Total Protein 7.3 g/dL (6.4-8.2) Albumin 3.6 g/dL (3.4-5.0) Albumin/Globulin Ratio 1.0 (1.0-1.7) SARS-CoV-2 Antigen (Rapid) Negative (NEGATIVE) Assessment/Plan Assessment/Plan LLQ abd pain- most lkikely secondary to acute diverticulitis/ UC flare and/or infectious colitis possible as well Plan stool studies IV fluids IV antibiotics pending above cosnider steriods if no response to above Full ntoe dictated DAKSHA LEA MD Sep 06, 2021 09:47
[2021-09-06] MEDS: CIPROFLOXACIN 400MG PREMIX 200 ML IV SCH ×2 (10:16→20:51)
[2021-09-06] MEDS: metroNIDAZOLE 500 MG TABLET PO SCH ×3 (10:45→22:14)
[2021-09-06] MEDS: HYDROcodone/APAP 5/325MG 1 TAB TABLET PO PRN ×2 (10:45→15:37)
[2021-09-06 11:00] VITALS: BP 134/96
[2021-09-06] MEDS ORDERED: DOCUSATE SODIUM 100 MG CAPSULE. PO PRN (11:45)
[2021-09-06] MEDS ORDERED: PROCHLORPERAZINE 10 MG/2 ML VIAL. IV PRN (11:45)
[2021-09-06] MEDS ORDERED: SENNOSIDES 8.6 MG TABLET PO PRN (11:45)
[2021-09-06] MEDS ORDERED: ZOLPIDEM 5 MG TABLET. PO PRN (11:45)
[2021-09-06] MEDS ORDERED: ACETAMINOPHEN 325 MG TABLET. PO PRN (11:45)
[2021-09-06] MEDS ORDERED: DEXTROSE 50% 25 GM / 50ML DISP.SYRIN. IV PRN (11:45)
[2021-09-06] MEDS: HYDROmorphone 2 MG/ML VIAL IVP PRN ×5 (12:26→23:52)
[2021-09-06] MEDS: IV NORMAL SALINE 1000ML BAG 1,000 ML IV SCH ×2 (12:27→23:57)
[2021-09-06] MEDS: LORazepam 0.5 MG TABLET PO PRN ×2 (12:27→18:30)
[2021-09-06] MEDS: ENOXAPARIN 40 MG/0.4 ML SYRINGE. SQ SCH (12:27)
[2021-09-06 15:00] VITALS: BP 116/112
[2021-09-06] MEDS: PANTOPRAZOLE 40 MG TABLET.DR. PO SCH (15:37)
[2021-09-06] MEDS: ONDANSETRON PF 4 MG/2 ML VIAL. IVP PRN (18:34)
[2021-09-06 19:00] VITALS: BP 151/102
[2021-09-06 23:00] VITALS: BP 152/104
[2021-09-07] MEDS: HYDROcodone/APAP 5/325MG 1 TAB TABLET PO PRN (02:26)
[2021-09-07 03:00] VITALS: BP 138/87
--- NOTE | 2021-09-07 03:20 | CONS ---
DATE OF CONSULTATION: 09/06/2021 GASTROENTEROLOGY CONSULTATION REASON FOR CONSULTATION: Left lower quadrant abdominal pain, diarrhea, history of ulcerative colitis. HISTORY OF PRESENT ILLNESS: A 51-year-old female with past medical history significant for diabetes, GERD, hyperlipidemia, hypertension, who is status post appendectomy, cholecystectomy, hysterectomy, hernia repair, is admitted with acute onset of left lower quadrant abdominal pain, which has been present for the past 24 hours. She has been on maintenance sulfasalazine for ulcerative colitis. Denies any exotic travel, recent antibiotics or additional exposures. Due to continued pain, was brought to the hospital for further evaluation and care. PAST MEDICAL HISTORY: Diabetes, GERD, hyperlipidemia, hypertension, ulcerative colitis. PAST SURGICAL HISTORY: Status post appendectomy, cholecystectomy, hysterectomy, and hernia repair. ALLERGIES: CEPHALEXIN, DROPERIDOL, KETOROLAC, PROCHLORPERAZINE. MEDICATIONS: Include warfarin, ondansetron, Cipro and Flagyl. SOCIAL HISTORY: Nondrinker, nonsmoker at this time. FAMILY HISTORY: Noncontributory. REVIEW OF SYSTEMS: Per records. PHYSICAL EXAMINATION: VITAL SIGNS: Temperature is 98.4, pulse 55, respiratory rate 18, blood pressure is 124/92. LUNGS: Clear. CARDIOVASCULAR: Reveals an S1, S2, without S3, S4 or appreciable murmur. ABDOMEN: Soft abdomen with hypoactive bowel sounds with left lower quadrant tenderness to palpation. EXTREMITIES: Reveals no cyanosis, clubbing or edema. LABORATORY STUDIES: CT scan of the abdomen and pelvis reveals mild distal colonic diverticulosis, status post appendectomy, hysterectomy as well as a small fat-containing umbilical hernia. In addition, hemoglobin is 9.9, hematocrit 29.2, white count 6.7, platelet count is 256,000. Sodium 137, potassium 4.0, chloride 103, bicarbonate ____, creatinine 0.8, glucose 116, calcium is 9.2, AST of 9, ALT of 19, alkaline phosphatase of 104, total protein 7.3. IMPRESSION: Left lower quadrant abdominal pain, history of ulcerative colitis and diverticulosis, most likely secondary to acute diverticulitis. Therefore, recommend fluids, antibiotics, analgesics for pain control, pending stool studies. If there is no improvement with medical therapy with antibiotics, then further consideration to steroid therapy will then be pursued with remote history of ulcerative colitis. I would like to thank Dr. Krause for allowing Dr. Canales and myself to participate in the patient's care. COLEMAN/LEELA DR: Carlos TID: [id number] CC: ADAM KRAUSE MD, MAGUE CANALES MD
[2021-09-07] MEDS: HYDROmorphone 2 MG/ML VIAL IVP PRN ×7 (04:38→21:36)
[2021-09-07] MEDS: metroNIDAZOLE 500 MG TABLET PO SCH ×3 (06:16→22:59)
[2021-09-07 07:00] VITALS: BP 150/94
[2021-09-07 07:16] LABS: BASO % 1 % (0-3); EOS # 0.1 x10^3/uL (0.0-0.7); EOS % 3 % (0-3); HEMATOCRIT 27.9 % (36.0-47.0); HEMOGLOBIN 9.1 g/dL (12.0-15.5); LYMPH # 0.4 x10^3/uL (1.0-4.8); LYMPH % 15 % (24-48); MEAN CORPUSCULAR HEMOGLOBIN 27 pg (25-35); MEAN CORPUSCULAR HGB CONC 33 g/dL (31-37); MEAN CORPUSCULAR VOLUME 82 fL (79-100); MONO # 0.3 x10^3/uL (0.0-1.1); MONO % 11 % (0-9); NEUT # 2.2 x10^3/uL (1.8-7.7); NEUT % 70 % (31-73); PLATELET COUNT 218 x10^3/uL (140-400); RED BLOOD COUNT 3.41 x10^6/uL (3.50-5.40); RED CELL DISTRIBUTION WIDTH 14.2 % (11.5-14.5); WHITE BLOOD COUNT 3.1 x10^3/uL (4.0-11.0)
[2021-09-07 07:54] LABS: CALCIUM 8.5 mg/dL (8.5-10.1); CREATININE 0.6 mg/dL (0.6-1.0); MAGNESIUM 1.9 mg/dL (1.8-2.4); PHOSPHORUS 5.4 mg/dL (2.6-4.7); POTASSIUM 3.6 mmol/L (3.5-5.1)
[2021-09-07] MEDS: IV NORMAL SALINE 1000ML BAG 1,000 ML IV SCH ×2 (08:02→16:19)
[2021-09-07] MEDS: PANTOPRAZOLE 40 MG TABLET.DR. PO SCH (08:02)
[2021-09-07] MEDS: LORazepam 0.5 MG TABLET PO PRN ×2 (08:02→13:55)
[2021-09-07] MEDS: CIPROFLOXACIN 400MG PREMIX 200 ML IV SCH ×2 (08:03→21:36)
[2021-09-07 11:00] VITALS: BP 166/106
[2021-09-07] MEDS: ENOXAPARIN 40 MG/0.4 ML SYRINGE. SQ SCH (11:02)
--- NOTE | 2021-09-07 11:43 | PDOC ---
[facility] PROGRESS NOTE Date of Service DOS: DATE: 09/07/21 TIME: 11:40 Chief Complaint Chief Complaint Acute abdominal pain, concerning for ulcerative colitis flare versus d iverticulitis Anemia, possible acute rectal GIB History of diabetes mellitus type 2 History of GERD History of anxiety History of ulcerative colitis on sulfasalazine Admit to hospitalist service for further management GI consult Continue Martínez IV antibiotics Pending stool studies pending ESR/CRP Continue IV fluids Lovenox for DVT prophylaxis Protonix GI prophylaxis ADA diet CODE STATUS full Discussed with RN and SW Disposition inpatient management as above DPOA: Father, Thomas Marks History of Present Illness History of Present Illness 51 year old female with history of ulcerative colitis, diverticulitis who presents with left lower quadrant pain, nausea/vomiting, and diarrhea. Has noted bright red blood in her stool as well. Pain started at 5 AM on 09/05 (earlier in the day) and persisted throughout. She takes sulfasalazine for her ulcerative colitis, and is instructed to double her dose for flare which she is done throughout the day. Has had no improvement in her pain. Denies fever/chills. No dysuria, urgency, frequency. No flank pain. Denies vaginal bleeding or discharge. States that she has not had a flare like this in approximately 4 to 5 months. Often gets care at . Was last admitted here in 2019. Is in the process of getting a new GI doctor Sulfasalazine is reportedly currently managed by primary care doctor 09/07/2021 No acute events overnight. Patient seen and examined bedside. Patient's pain is mildly improved however she is seen for 1 mg Dilaudid IV status which she got at [place]. I suspect there is some drug-seeking behavior as most of her labs have returned essentially normal. Her ESR and CRP are within normal limits. I do not believe that this is a ulcerative colitis flare. I believe there is some anxiety component which she was restarted on her Cymbalta and there is as needed Ativan. I have increased her [place] to 10/325 mg. She has not had a bowel movement but does endorse passing flatus. We are still waiting for stool studies before determining whether to stop her antibiotics. Patient's chart, labs, images were reviewed and discussed with RN Vitals/I&O Vitals/I&O: Vital Signs Date Time Temp Pulse Resp B/P (MAP) Pulse Ox O2 Delivery O2 Flow Rate FiO2 09/07/21 11:32 12 09/07/21 08:00 Room Air 09/07/21 07:00 98.3 75 150/94 (112) 91 98.3 I & O 09/06/21 09/06/21 09/07/21 15:00 23:00 07:00 Intake Total 300 ml 500 ml 400 ml Balance 300 ml 500 ml 400 ml Physical Exam General: Alert, Oriented X3, Cooperative Heart: Regular rate Lungs: Clear Abdomen: Normal bowel sounds, Other (Mild periumbilical tenderness) Labs Labs: Laboratory Tests Test 09/07/21 06:45 White Blood Count 3.1 x10^3/uL (4.0-11.0) Red Blood Count 3.41 x10^6/uL (3.50-5.40) Hemoglobin 9.1 g/dL (12.0-15.5) Hematocrit 27.9 % (36.0-47.0) Mean Corpuscular Volume 82 fL (79-100) Mean Corpuscular Hemoglobin 27 pg (25-35) Mean Corpuscular Hemoglobin Concent 33 g/dL (31-37) Red Cell Distribution Width 14.2 % (11.5-14.5) Platelet Count 218 x10^3/uL (140-400) Neutrophils (%) (Auto) 70 % (31-73) Lymphocytes (%) (Auto) 15 % (24-48) Monocytes (%) (Auto) 11 % (0-9) Eosinophils (%) (Auto) 3 % (0-3) Basophils (%) (Auto) 1 % (0-3) Neutrophils # (Auto) 2.2 x10^3/uL (1.8-7.7) Lymphocytes # (Auto) 0.4 x10^3/uL (1.0-4.8) Monocytes # (Auto) 0.3 x10^3/uL (0.0-1.1) Eosinophils # (Auto) 0.1 x10^3/uL (0.0-0.7) Basophils # (Auto) 0.0 x10^3/uL (0.0-0.2) Sodium Level 143 mmol/L (136-145) Potassium Level 3.6 mmol/L (3.5-5.1) Chloride Level 106 mmol/L (98-107) Carbon Dioxide Level 30 mmol/L (21-32) Anion Gap 7 (6-14) Blood Urea Nitrogen 6 mg/dL (7-20) Creatinine 0.6 mg/dL (0.6-1.0) Estimated GFR (Cockcroft-Gault) 105.0 Glucose Level 93 mg/dL (70-99) Calcium Level 8.5 mg/dL (8.5-10.1) Phosphorus Level 5.4 mg/dL (2.6-4.7) Magnesium Level 1.9 mg/dL (1.8-2.4) Assessment and Plan Assessmemt and Plan Problems Medical Problems: (1) Diarrhea Status: Acute (2) Hematochezia Status: Acute (3) Left sided abdominal pain Status: Acute (4) Nausea & vomiting Status: Acute Comment Review of Relevant I have reviewed the following items [email or web address] (where applicable) has been applied. Medications: Current Medications Medications (Trade) Dose Ordered Sig/Ga Route PRN Reason Start Time Stop Time Status Last Admin Dose Admin Ondansetron HCl (Zofran) 4 mg PRN Q6HRS PRN IVP NAUSEA/VOMITING (1st Choice) 09/06/21 11:45 09/06/21 18:34 Sodium Chloride 1,000 ml @ 100 mls/hr Q10H IV 09/06/21 11:45 09/07/21 08:02 Lorazepam (Ativan) 0.5 mg PRN Q6HRS PRN PO ANXIETY / AGITATION 09/06/21 11:45 09/07/21 08:02 Enoxaparin Sodium (Lovenox 40mg Syringe) 40 mg Q24H SQ 09/06/21 12:00 09/07/21 11:02 Pantoprazole Sodium (Protonix) 40 mg DAILYAC PO 09/06/21 16:30 09/07/21 08:02 Zolpidem Tartrate (Ambien) 2.5 mg PRN QHS PRN PO INSOMNIA 09/06/21 11:45 09/06/21 23:44 Justifications for Admission Other Justification Ulcerative colitis flare ADAM LOWERY MD Sep 07, 2021 11:43
[2021-09-07] MEDS: HYDROcodone/APAP 10/325 1 TAB TABLET PO PRN (11:44)
--- NOTE | 2021-09-07 12:37 | PDOC ---
[facility] PROGRESS NOTE Reason for Follow-up LLQ abd pain/HX U colitis Subjective pain /diarrhea persist Physical Exam Lungs clear CV S1 S2 ABD +BS< soft, + LLQ tenderness to palpation Review of Relevant I have reviewed the following items [email or web address] (where applicable) has been applied. Labs Laboratory Tests Test 09/05/21 21:02 09/05/21 23:59 09/06/21 02:42 09/06/21 09:55 Urine Color Yellow Urine Clarity Clear Urine pH 6.0 (<5.0-8.0) Urine Specific Centre <=1.005 (1.000-1.030) Urine Protein Negative mg/dL (NEG-TRACE) Urine Glucose (UA) Negative mg/dL (NEG) Urine Ketones (Stick) Negative mg/dL (NEG) Urine Blood Large (NEG) Urine Nitrite Negative (NEG) Urine Bilirubin Negative (NEG) Urine Urobilinogen Dipstick 0.2 mg/dL (0.2 mg/dL) Urine Leukocyte Esterase Small (NEG) Urine RBC 20-40 /HPF (0-2) Urine WBC 1-4 /HPF (0-4) Urine Squamous Epithelial Cells Occ /LPF Urine Bacteria 0 /HPF (0-FEW) White Blood Count 6.7 x10^3/uL (4.0-11.0) Red Blood Count 3.59 x10^6/uL (3.50-5.40) Hemoglobin 9.9 g/dL (12.0-15.5) Hematocrit 29.2 % (36.0-47.0) Mean Corpuscular Volume 82 fL (79-100) Mean Corpuscular Hemoglobin 28 pg (25-35) Mean Corpuscular Hemoglobin Concent 34 g/dL (31-37) Red Cell Distribution Width 14.4 % (11.5-14.5) Platelet Count 258 x10^3/uL (140-400) Neutrophils (%) (Auto) 82 % (31-73) Lymphocytes (%) (Auto) 9 % (24-48) Monocytes (%) (Auto) 9 % (0-9) Eosinophils (%) (Auto) 0 % (0-3) Basophils (%) (Auto) 1 % (0-3) Neutrophils # (Auto) 5.5 x10^3/uL (1.8-7.7) Lymphocytes # (Auto) 0.6 x10^3/uL (1.0-4.8) Monocytes # (Auto) 0.6 x10^3/uL (0.0-1.1) Eosinophils # (Auto) 0.0 x10^3/uL (0.0-0.7) Basophils # (Auto) 0.0 x10^3/uL (0.0-0.2) Sodium Level 137 mmol/L (136-145) Potassium Level 4.0 mmol/L (3.5-5.1) Chloride Level 103 mmol/L (98-107) Carbon Dioxide Level 29 mmol/L (21-32) Anion Gap 5 (6-14) Blood Urea Nitrogen 8 mg/dL (7-20) Creatinine 0.7 mg/dL (0.6-1.0) Estimated GFR (Cockcroft-Gault) 87.9 BUN/Creatinine Ratio 11 (6-20) Glucose Level 116 mg/dL (70-99) Calcium Level 9.2 mg/dL (8.5-10.1) Total Bilirubin 0.2 mg/dL (0.2-1.0) Aspartate Amino Transf (AST/SGOT) 9 U/L (15-37) Alanine Aminotransferase (ALT/SGPT) 19 U/L (14-59) Alkaline Phosphatase 104 U/L (46-116) Total Protein 7.3 g/dL (6.4-8.2) Albumin 3.6 g/dL (3.4-5.0) Albumin/Globulin Ratio 1.0 (1.0-1.7) SARS-CoV-2 RNA (JAYASHREE) Negative (Negative) SARS-CoV-2 Antigen (Rapid) Negative (NEGATIVE) Erythrocyte Sedimentation Rate 35 (0-25) C-Reactive Protein, Quantitative < 0.5 mg/L (0-3.3) Test 09/07/21 06:45 White Blood Count 3.1 x10^3/uL (4.0-11.0) Red Blood Count 3.41 x10^6/uL (3.50-5.40) Hemoglobin 9.1 g/dL (12.0-15.5) Hematocrit 27.9 % (36.0-47.0) Mean Corpuscular Volume 82 fL (79-100) Mean Corpuscular Hemoglobin 27 pg (25-35) Mean Corpuscular Hemoglobin Concent 33 g/dL (31-37) Red Cell Distribution Width 14.2 % (11.5-14.5) Platelet Count 218 x10^3/uL (140-400) Neutrophils (%) (Auto) 70 % (31-73) Lymphocytes (%) (Auto) 15 % (24-48) Monocytes (%) (Auto) 11 % (0-9) Eosinophils (%) (Auto) 3 % (0-3) Basophils (%) (Auto) 1 % (0-3) Neutrophils # (Auto) 2.2 x10^3/uL (1.8-7.7) Lymphocytes # (Auto) 0.4 x10^3/uL (1.0-4.8) Monocytes # (Auto) 0.3 x10^3/uL (0.0-1.1) Eosinophils # (Auto) 0.1 x10^3/uL (0.0-0.7) Basophils # (Auto) 0.0 x10^3/uL (0.0-0.2) Sodium Level 143 mmol/L (136-145) Potassium Level 3.6 mmol/L (3.5-5.1) Chloride Level 106 mmol/L (98-107) Carbon Dioxide Level 30 mmol/L (21-32) Anion Gap 7 (6-14) Blood Urea Nitrogen 6 mg/dL (7-20) Creatinine 0.6 mg/dL (0.6-1.0) Estimated GFR (Cockcroft-Gault) 105.0 Glucose Level 93 mg/dL (70-99) Calcium Level 8.5 mg/dL (8.5-10.1) Phosphorus Level 5.4 mg/dL (2.6-4.7) Magnesium Level 1.9 mg/dL (1.8-2.4) Laboratory Tests Test 09/07/21 06:45 White Blood Count 3.1 x10^3/uL (4.0-11.0) Red Blood Count 3.41 x10^6/uL (3.50-5.40) Hemoglobin 9.1 g/dL (12.0-15.5) Hematocrit 27.9 % (36.0-47.0) Mean Corpuscular Volume 82 fL (79-100) Mean Corpuscular Hemoglobin 27 pg (25-35) Mean Corpuscular Hemoglobin Concent 33 g/dL (31-37) Red Cell Distribution Width 14.2 % (11.5-14.5) Platelet Count 218 x10^3/uL (140-400) Neutrophils (%) (Auto) 70 % (31-73) Lymphocytes (%) (Auto) 15 % (24-48) Monocytes (%) (Auto) 11 % (0-9) Eosinophils (%) (Auto) 3 % (0-3) Basophils (%) (Auto) 1 % (0-3) Neutrophils # (Auto) 2.2 x10^3/uL (1.8-7.7) Lymphocytes # (Auto) 0.4 x10^3/uL (1.0-4.8) Monocytes # (Auto) 0.3 x10^3/uL (0.0-1.1) Eosinophils # (Auto) 0.1 x10^3/uL (0.0-0.7) Basophils # (Auto) 0.0 x10^3/uL (0.0-0.2) Sodium Level 143 mmol/L (136-145) Potassium Level 3.6 mmol/L (3.5-5.1) Chloride Level 106 mmol/L (98-107) Carbon Dioxide Level 30 mmol/L (21-32) Anion Gap 7 (6-14) Blood Urea Nitrogen 6 mg/dL (7-20) Creatinine 0.6 mg/dL (0.6-1.0) Estimated GFR (Cockcroft-Gault) 105.0 Glucose Level 93 mg/dL (70-99) Calcium Level 8.5 mg/dL (8.5-10.1) Phosphorus Level 5.4 mg/dL (2.6-4.7) Magnesium Level 1.9 mg/dL (1.8-2.4) Microbiology 09/05/21 Urine Culture - Final, Complete Medications Current Medications Morphine Sulfate (Morphine Sulfate) 4 mg 1X ONCE IVP ; Start 09/05/21 at 21:45; Stop 09/05/21 at 22:24; Status DC Ondansetron HCl (Zofran) 4 mg 1X ONCE IVP Last administered on 09/06/21at 00:11; Start 09/05/21 at 21:45; Stop 09/05/21 at 21:51; Status DC Hydromorphone HCl (Dilaudid) 1 mg 1X ONCE IVP Last administered on 09/06/21at 00:12; Start 09/05/21 at 22:30; Stop 09/05/21 at 22:31; Status DC Iohexol (Omnipaque 300 Mg/ml) 75 ml 1X ONCE IV Last administered on 09/06/21at 00:59; Start 09/06/21 at 00:30; Stop 09/06/21 at 00:31; Status DC Info (CONTRAST GIVEN -- Rx MONITORING) 1 each PRN DAILY PRN MC SEE COMMENTS; Start 09/06/21 at 00:30; Stop 09/08/21 at 00:29 Hydromorphone HCl (Dilaudid) 1.5 mg 1X ONCE IVP Last administered on 09/06/21at 01:58; Start 09/06/21 at 02:00; Stop 09/06/21 at 02:01; Status DC Sodium Chloride 1,000 ml @ 1,000 mls/hr 1X ONCE IV Last administered on 09/06/21at 01:58; Start 09/06/21 at 02:00; Stop 09/06/21 at 02:59; Status DC Ondansetron HCl (Zofran) 4 mg PRN Q8HRS PRN IVP NAUSEA/VOMITING; Start 09/06/21 at 02:00; Stop 09/06/21 at 15:12; Status DC Morphine Sulfate (Morphine Sulfate) 4 mg PRN Q2HR PRN IVP PAIN Last administered on 09/06/21at 09:58; Start 09/06/21 at 02:00; Stop 09/07/21 at 01:59; Status DC Ciprofloxacin/ Dextrose 200 ml @ 200 mls/hr Q12HR IV Last administered on 09/07/21at 08:03; Start 09/06/21 at 10:00 Metronidazole 100 ml @ 100 mls/hr Q8HRS IV ; Start 09/06/21 at 10:00; Status Cancel Metronidazole (Flagyl) 500 mg Q8HRS PO Last administered on 09/07/21at 06:16; Start 09/06/21 at 10:30 Acetaminophen/ Hydrocodone Bitart (Lortab 5/325) 1 tab PRN Q4HRS PRN PO PAIN Last administered on 09/07/21at 02:26; Start 09/06/21 at 10:30; Stop 09/07/21 at 10:18; Status DC Hydromorphone HCl (Dilaudid) 0.4 mg PRN Q2HR PRN IVP PAIN Last administered on 09/07/21at 11:02; Start 09/06/21 at 10:30 Sennosides (Senna) 17.2 mg PRN BID PRN PO CONSTIPATION; Start 09/06/21 at 11:45 Docusate Sodium (Colace) 100 mg PRN DAILY PRN PO HARD STOOLS; Start 09/06/21 at 11:45 Ondansetron HCl (Zofran) 4 mg PRN Q6HRS PRN IVP NAUSEA/VOMITING (1st Choice) Last administered on 09/06/21at 18:34; Start 09/06/21 at 11:45 Dextrose (Dextrose 50%-Water Syringe) 12.5 gm PRN Q15MIN PRN IV SEE COMMENTS; Start 09/06/21 at 11:45 Sodium Chloride 1,000 ml @ 100 mls/hr Q10H IV Last administered on 09/07/21at 08:02; Start 09/06/21 at 11:45 Acetaminophen (Tylenol) 650 mg PRN Q4HRS PRN PO TEMP OVER 100.4F OR MILD PAIN; Start 09/06/21 at 11:45 Lorazepam (Ativan) 0.5 mg PRN Q6HRS PRN PO ANXIETY / AGITATION Last administered on 09/07/21at 08:02; Start 09/06/21 at 11:45 Lorazepam (Ativan Inj) 0.25 mg PRN Q4HRS PRN IV ANXIETY / AGITATION; Start 09/06/21 at 11:45 Enoxaparin Sodium (Lovenox 40mg Syringe) 40 mg Q24H SQ Last administered on 09/07/21at 11:02; Start 09/06/21 at 12:00 Pantoprazole Sodium (Protonix) 40 mg DAILYAC PO Last administered on 09/07/21at 08:02; Start 09/06/21 at 16:30 Prochlorperazine Edisylate (Compazine) 10 mg PRN Q6HRS PRN IV NAUSEA/VOMITING (2nd Choice); Start 09/06/21 at 11:45; Status Cancel Zolpidem Tartrate (Ambien) 2.5 mg PRN QHS PRN PO INSOMNIA Last administered on 09/06/21at 23:44; Start 09/06/21 at 11:45 Acetaminophen/ Hydrocodone Bitart (Lortab 10/325) 1 tab PRN Q6HRS PRN PO PAIN Last administered on 09/07/21at 11:44; Start 09/07/21 at 10:30 Active Scripts Active Lidocaine 1 Each Adh..patch 1 Each TP Q12HR PRN Keep patch in place of discomfort for 12 hours. Remove and leave patch off for next 12 hours before placement of new patch. Ondansetron Hcl 4 Mg Tablet 1 Tab PO PRN Q6HRS PRN 3 Days Zofran (Ondansetron Hcl) 4 Mg Tablet 1 Tab PO Q8HRS PRN Reported Percocet 5-325 Mg Tablet (Oxycodone/Acetaminophen) 1 Each Tablet 1 Tab PO PRN Q6HRS PRN Simvastatin 20 Mg Tablet 1 Tab PO QHS Trazodone Hcl 100 Mg Tablet 100 Mg PO HS Xanax Xr (Alprazolam) 1 Mg Tab.er.24h 2 Mg PO DAILY Cymbalta (Duloxetine Hcl) 60 Mg Capsule.dr 120 Mg PO DAILY Prevacid 24HR (Lansoprazole) 15 Mg Capsule.dr 30 Mg PO DAILY Vitals/I & O Vital Sign - Last 24 Hours 09/06/21 09/06/21 09/06/21 09/06/21 13:10 14:46 15:00 15:37 Temp 98.0 98.0 Pulse 91 Resp 14 14 12 B/P (MAP) 116/112 (113) O2 Delivery Room Air Room Air 09/06/21 09/06/21 09/06/21 09/06/21 15:38 16:15 17:42 18:30 Resp 14 14 14 14 O2 Delivery Room Air 09/06/21 09/06/21 09/06/21 09/06/21 19:00 19:45 20:51 21:21 Temp 97.9 97.9 Pulse 69 Resp 16 20 20 B/P (MAP) 151/102 (118) Pulse Ox 98 O2 Delivery Room Air Room Air Room Air Room Air 09/06/21 09/06/21 09/07/21 09/07/21 23:00 23:52 00:22 02:26 Pulse 79 Resp 16 20 20 20 B/P (MAP) 152/104 (120) Pulse Ox 98 O2 Delivery Room Air Room Air Room Air Room Air 09/07/21 09/07/21 09/07/21 09/07/21 02:56 03:00 04:38 05:08 Temp 98.5 98.5 Pulse 81 Resp 20 16 20 20 B/P (MAP) 138/87 (104) Pulse Ox 96 O2 Delivery Room Air Room Air Room Air Room Air 09/07/21 09/07/21 09/07/21 09/07/21 07:00 08:00 08:02 09:02 Temp 98.3 98.3 Pulse 75 Resp 18 12 16 B/P (MAP) 150/94 (112) Pulse Ox 91 O2 Delivery Room Air Room Air 09/07/21 09/07/21 09/07/21 09/07/21 11:00 11:02 11:32 11:44 Temp 98.3 98.3 Pulse 84 Resp 16 12 12 16 B/P (MAP) 166/106 (126) Pulse Ox 94 O2 Delivery Room Air Intake and Output 09/06/21 09/06/21 09/07/21 15:00 23:00 07:00 Intake Total 300 ml 500 ml 400 ml Balance 300 ml 500 ml 400 ml Problem List Problems Medical Problems: (1) Diarrhea Status: Acute (2) Hematochezia Status: Acute (3) Left sided abdominal pain Status: Acute (4) Nausea & vomiting Status: Acute Assessment LLQ abd pain- continue with antibiotics for diverticulitis, steriods may be needed if no improvement with sivan and diarrhea Justicifation of Admission Dx: Justifications for Admission: Justification of Admission Dx: N/A DAKSHA LEA MD Sep 07, 2021 12:37
[2021-09-07] MEDS: ONDANSETRON PF 4 MG/2 ML VIAL. IVP PRN ×2 (13:17→18:31)
[2021-09-07] MEDS ORDERED: HYDROmorphone 2 MG/ML VIAL IVP PRN (13:45)
[2021-09-07 15:00] VITALS: BP 167/113
[2021-09-07 19:00] VITALS: BP 167/100
[2021-09-07] MEDS ORDERED: LACTOBACILLUS RHAMNOSUS GG 1 CAPSULE. PO SCH (21:00)
[2021-09-07 23:00] VITALS: BP 165/103
[2021-09-08] MEDS: HYDROcodone/APAP 10/325 1 TAB TABLET PO PRN (00:43)
[2021-09-08 03:00] VITALS: BP 163/92
[2021-09-08] MEDS: IV NORMAL SALINE 1000ML BAG 1,000 ML IV SCH (03:45)
[2021-09-08] MEDS: PANTOPRAZOLE 40 MG TABLET.DR. PO SCH (06:07)
[2021-09-08] MEDS: metroNIDAZOLE 500 MG TABLET PO SCH (06:07)
[2021-09-08 07:00] VITALS: BP 158/111
[2021-09-08 08:12] LABS: BASO % 0 % (0-3); EOS # 0.1 x10^3/uL (0.0-0.7); EOS % 2 % (0-3); HEMATOCRIT 29.5 % (36.0-47.0); HEMOGLOBIN 9.7 g/dL (12.0-15.5); LYMPH # 0.4 x10^3/uL (1.0-4.8); LYMPH % 11 % (24-48); MEAN CORPUSCULAR HEMOGLOBIN 27 pg (25-35); MEAN CORPUSCULAR HGB CONC 33 g/dL (31-37); MEAN CORPUSCULAR VOLUME 81 fL (79-100); MONO # 0.4 x10^3/uL (0.0-1.1); MONO % 12 % (0-9); NEUT # 2.8 x10^3/uL (1.8-7.7); NEUT % 75 % (31-73); PLATELET COUNT 228 x10^3/uL (140-400); RED BLOOD COUNT 3.65 x10^6/uL (3.50-5.40); RED CELL DISTRIBUTION WIDTH 14.2 % (11.5-14.5); WHITE BLOOD COUNT 3.7 x10^3/uL (4.0-11.0)
[2021-09-08 08:25] LABS: CALCIUM 8.9 mg/dL (8.5-10.1); CREATININE 0.5 mg/dL (0.6-1.0); GFR 129.6; POTASSIUM 3.5 mmol/L (3.5-5.1)
--- NOTE | 2021-09-08 08:25 | NUR ---
Pt. not found in room. Armband found on table, no belongings in room and gown on bedside table. Pt. did not have an IV in this am.
--- NOTE | 2021-09-09 18:15 | PDOC3 ---
[facility]-Discharge Summary Date of Admission: Date of Admission: Sep 06, 2021 Date of Discharge: Date of Discharge: Sep 08, 2021 Discharge Diagnosis: Discharge Diagnosis: Acute abdominal pain, concerning for ulcerative colitis flare versus diverticulitis Anemia, possible acute rectal GIB History of diabetes mellitus type 2 History of GERD History of anxiety History of ulcerative colitis on sulfasalazine Hospital Course: Hospital Course: 51 year old female with history of ulcerative colitis, diverticulitis who presents with left lower quadrant pain, nausea/vomiting, and diarrhea. Has noted bright red blood in her stool as well. Pain started at 5 AM on 09/05 (earlier in the day) and persisted throughout. She takes sulfasalazine for her ulcerative colitis, and is instructed to double her dose for flare which she is done throughout the day. Has had no improvement in her pain. Denies fever/chills. No dysuria, urgency, frequency. No flank pain. Denies vaginal bleeding or discharge. States that she has not had a flare like this in approximately 4 to 5 months. Often gets care at [facility]. Was last admitted here in 2019. Is in the process of getting a new GI doctor Sulfasalazine is reportedly currently managed by primary care doctor 09/07/2021 No acute events overnight. Patient seen and examined bedside. Patient's pain is mildly improved however she is seen for 1 mg Dilaudid IV status which she got at [place]. I suspect there is some drug-seeking behavior as most of her labs have returned essentially normal. Her ESR and CRP are within normal limits. I do not believe that this is a ulcerative colitis flare. I believe there is some anxiety component which she was restarted on her Cymbalta and there is as needed Ativan. I have increased her [place] to 10/325 mg. She has not had a bowel movement but does endorse passing flatus. We are still waiting for stool studies before determining whether to stop her antibiotics. Patient's chart, labs, images were reviewed and discussed with RN Patient left against medical advice Disposition: Disposition/Orders: Other (Left against medical advice) Activity: Activity: Resume previous activity Diet: Diet: Cardiac Medications: Home Meds Active Scripts Lidocaine (Lidocaine) 1 Each Adh..patch, 1 EACH TP Q12HR PRN for PAIN, #20 PATCH Keep patch in place of discomfort for 12 hours. Remove and leave patch off for next 12 hours before placement of new patch. Prov:MAGUE HICKS DO 01/17/21 Ondansetron Hcl (ONDANSETRON HCL) 4 Mg Tablet, 1 TAB PO PRN Q6HRS PRN for NAUSEA/VOMITING for 3 Days, #10 TAB 0 Refills Prov:MARLY BANUELOS WOMEN'S ACTIVITIES ADVISER 07/30/20 Ondansetron Hcl (ZOFRAN) 4 Mg Tablet, 1 TAB PO Q8HRS PRN for NAUSEA, #20 TAB Prov:FLORIDALMA DESAI DO 12/20/16 Reported Medications Oxycodone/Apap 5-325 (PERCOCET 5-325 MG TABLET ) 1 Each Tablet, 1 TAB PO PRN Q6HRS PRN for PAIN, TAB 0 Refills 09/06/21 Simvastatin (SIMVASTATIN) 20 Mg Tablet, 1 TAB PO QHS for HLD, #30 TAB 5 Refills 09/06/21 Trazodone Hcl (TRAZODONE HCL) 100 Mg Tablet, 100 MG PO HS for insomnia, TAB 07/04/20 Alprazolam (XANAX XR) 1 Mg Tab.er.24h, 2 MG PO DAILY for anxiety/panic attacks, TAB 0 Refills 08/27/18 Duloxetine Hcl (CYMBALTA) 60 Mg Capsule.dr, 120 MG PO DAILY, CAP 06/28/16 Lansoprazole (PREVACID 24HR) 15 Mg Capsule.dr, 30 MG PO DAILY, CAP 05/12/14 Scheduled Alprazolam (Xanax Xr), 2 MG PO DAILY, (Reported) Duloxetine Hcl (Cymbalta), 120 MG PO DAILY, (Reported) Lansoprazole (Prevacid 24HR), 30 MG PO DAILY, (Reported) Simvastatin (Simvastatin), 1 TAB PO QHS, (Reported) Trazodone Hcl (Trazodone Hcl), 100 MG PO HS, (Reported) Scheduled PRN Lidocaine (Lidocaine), 1 EACH TP Q12HR PRN for PAIN Ondansetron Hcl (Zofran), 1 TAB PO Q8HRS PRN for NAUSEA Ondansetron Hcl (Ondansetron Hcl), 1 TAB PO PRN Q6HRS PRN for NAUSEA/VOMITING Oxycodone/Apap 5-325 (Percocet 5-325 Mg Tablet ), 1 TAB PO PRN Q6HRS PRN for PAIN, (Reported) Total Time: Total Time: Total time spent was 33 minutes in preparing scripts, discharge planning with SW and RN, and preparing this discharge summary. Justicifation of Admission Dx: Justifications for Admission: Justification of Admission Dx: N/A ADAM LOWERY MD Sep 09, 2021 18:15
== END 2021-09-08 08:58 | disposition left against medical advice (07) ==
LOC: ER 20:57 → 4 NORTH 09-06 01:55
PROVIDERS: ADMIT Internal Medicine; ATTEND Internal Medicine
DX: K57.30 Diverticulosis of large intestine without perforation or abscess without bleeding (principal); Z20.822 Contact with and (suspected) exposure to COVID-19; D64.9 Anemia, unspecified; E11.9 Type 2 diabetes mellitus without complications; K21.9 Gastro-esophageal reflux disease without esophagitis; F41.9 Anxiety disorder, unspecified; K51.911 Ulcerative colitis, unspecified with rectal bleeding; E78.00 Pure hypercholesterolemia, unspecified; E78.5 Hyperlipidemia, unspecified; I10 Essential (primary) hypertension; K92.1 Melena; R11.2 Nausea with vomiting, unspecified; R10.32 Left lower quadrant pain; R19.7 Diarrhea, unspecified; Z87.891 Personal history of nicotine dependence; Z90.49 Acquired absence of other specified parts of digestive tract; Z90.710 Acquired absence of both cervix and uterus; Z53.29 Procedure and treatment not carried out because of patient's decision for other reasons; Z79.899 Other long term (current) drug therapy; Z98.890 Other specified postprocedural states
CPT/HCPCS: 36415; 74177; 80048; 80053; 81001; 83735; 84100; 85025; 85651; 86140; 87086; 87426; 96361; 96365; 96366; 96372; 96375; 96376; 99285; G0378; J0744; J1170; J1650; J2270; J2405; J7030; Q9967; U0003; U0005; G0379

== ENCOUNTER 2021-09-15 15:05 | Emergency (ER) | payer OTHER, BC ==
[~2021-09-15] VITALS: Ht 162.6 cm; Wt 96.8 kg
[~2021-09-15 15:05] MED LIST changes: +SIMV20TA18 PO
[2021-09-15 15:08] VITALS: BP 147/90
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
== END 2021-09-15 16:29 | disposition home or self-care (01) ==
LOC: ER 15:05
DX: M54.50 Low back pain, unspecified (principal); M54.6 Pain in thoracic spine; G89.11 Acute pain due to trauma; G89.29 Other chronic pain; E11.9 Type 2 diabetes mellitus without complications; K21.9 Gastro-esophageal reflux disease without esophagitis; E78.00 Pure hypercholesterolemia, unspecified; I10 Essential (primary) hypertension; Z90.89 Acquired absence of other organs; Z90.49 Acquired absence of other specified parts of digestive tract; Z90.710 Acquired absence of both cervix and uterus; Z88.1 Allergy status to other antibiotic agents; Z88.6 Allergy status to analgesic agent; Z88.8 Allergy status to other drugs, medicaments and biological substances
CPT/HCPCS: 72128; 72131; 99284

== ENCOUNTER 2021-10-08 18:33 | Emergency (ER) | payer BC, OTHER ==
--- NOTE | 2021-10-08 19:02 | PHYS DOC ---
Past Medical History Past Medical History: Anxiety, Diabetes-Type II, GERD, High Cholesterol, Hypertension Additional Past Medical Histor: ULCERATIVE COLITIS Past Surgical History: Appendectomy, Cholecystectomy, Hysterectomy, Other Additional Past Surgical Histo: HERNIA REPAIR,FISTULA REPAIR,RECTAL PROLAPSE,PLATE & SCREWS IN CHEST Smoking Status: Former Smoker Alcohol Use: Occasionally Drug Use: None Adult General HPI HPI The patient is a 51-year-old female with a history of chronic pain and narcotic abuse, very well-known to me and to this facility. She is known to serially visit virtually every hospital in the [facility] for her chronic pain, requesting IV narcotics. Went to bedside to see the patient and advised her that I would be more than happy to evaluate her for acute medical pathology today with labs and, if indicated, imaging, but that her pain would be addressed with non-narcotic medications only while here in the emergency department. Review of Systems Review of Systems Constitutional: Denies fever or chills [] Eyes: Denies change in visual acuity, redness, or eye pain [] HENT: Denies nasal congestion or sore throat [] Respiratory: Denies cough or shortness of breath [] Cardiovascular: No additional information not addressed in HPI [] GI: Denies abdominal pain, nausea, vomiting, bloody stools or diarrhea [] : Denies dysuria or hematuria [] Musculoskeletal: Denies back pain or joint pain [] Integument: Denies rash or skin lesions [] Neurologic: Denies headache, focal weakness or sensory changes [] Endocrine: Denies polyuria or polydipsia [] All other systems were reviewed and found to be within normal limits, except as documented in this note. Allergies Allergies Allergies Coded Allergies Type Severity Reaction Last Updated Verified cephalexin Allergy Intermediate rash, red ears 08/29/18 Yes ketorolac Allergy Intermediate HIVES 11/22/18 Yes prochlorperazine Allergy Intermediate 11/24/16 Yes droperidol Adverse Reaction Mild anxiety 09/06/21 Yes Physical Exam Physical Exam Constitutional: Well developed, well nourished, no acute distress, non-toxic appearance. [] HENT: Normocephalic, atraumatic, bilateral external ears normal, oropharynx moist, no oral exudates, nose normal. [] Eyes: PERRLA, EOMI, conjunctiva normal, no discharge. [] Neck: Normal range of motion, no tenderness, supple, no stridor. [] Cardiovascular:Heart rate regular rhythm, no murmur [] Lungs & Thorax: Bilateral breath sounds clear to auscultation [] Abdomen: Bowel sounds normal, soft, no tenderness, no masses, no pulsatile masses. [] Skin: Warm, dry, no erythema, no rash. [] Back: No tenderness, no CVA tenderness. [] Extremities: No tenderness, no cyanosis, no clubbing, ROM intact, no edema. [] Neurologic: Alert and oriented X 3, normal motor function, normal sensory function, no focal deficits noted. [] Psychologic: Affect normal, judgement normal, mood normal. [] EKG EKG [] Radiology/Procedures Radiology/Procedures [] Course & Med Decision Making Course & Med Decision Making Pertinent Labs and Imaging studies reviewed. (See chart for details) [] Dragon Disclaimer Dragon Disclaimer This electronic medical record was generated, in whole or in part, using a voice recognition dictation system. Departure Departure Referrals: UNKNOWN PCP NAME (PCP) EDGAR WOODRUFF MD Oct 08, 2021 19:02
== END 2021-10-08 19:07 | disposition left against medical advice (07) ==
LOC: ER 18:33
DX: F11.10 Opioid abuse, uncomplicated (principal); G89.29 Other chronic pain; E11.9 Type 2 diabetes mellitus without complications; E78.00 Pure hypercholesterolemia, unspecified; K21.9 Gastro-esophageal reflux disease without esophagitis; I10 Essential (primary) hypertension; Z87.891 Personal history of nicotine dependence; Z90.89 Acquired absence of other organs; Z90.49 Acquired absence of other specified parts of digestive tract; Z90.710 Acquired absence of both cervix and uterus; Z88.1 Allergy status to other antibiotic agents; Z88.6 Allergy status to analgesic agent; Z88.8 Allergy status to other drugs, medicaments and biological substances
CPT/HCPCS: 99281

== ENCOUNTER 2022-02-22 13:39 | Inpatient (IN) | payer BC, OTHER ==
[~2022-02-22] VITALS: Ht 162.6 cm; Wt 103.3 kg
[2022-02-22] MEDS ORDERED: FAMOTIDINE 20 MG/2 ML VIAL IVP ONE (14:30)
[2022-02-22] MEDS ORDERED: ONDANSETRON PF 4 MG/2 ML VIAL. IVP ONE (14:30)
[2022-02-22] MEDS ORDERED: MORPHINE SULFATE 2 MG/ML INJ. IVP ONE ×2 (14:30→17:00)
[2022-02-22] MEDS ORDERED: IV RINGERS,LACTATED 1000ML 1,000 ML IV ONE (14:30)
[2022-02-22 14:41] LABS: FECAL OB PT POSITIVE (NEG)
[2022-02-22 14:43] LABS: BACTERIA,URINE 0 /HPF (0-FEW); RBC,URINE >40 /HPF (0-2); WBC,URINE OCC /HPF (0-4)
[2022-02-22] MEDS ORDERED: IOHEXOL 300 MG/ML 100ML VIAL. IV ONE (15:30)
[2022-02-22 15:55] LABS: BASO % 1 % (0-3); EOS # 0.1 x10^3/uL (0.0-0.7); EOS % 3 % (0-3); HEMATOCRIT 23.6 % (36.0-47.0); HEMOGLOBIN 7.4 g/dL (12.0-15.5); LYMPH # 0.5 x10^3/uL (1.0-4.8); LYMPH % 11 % (24-48); MEAN CORPUSCULAR HEMOGLOBIN 23 pg (25-35); MEAN CORPUSCULAR HGB CONC 31 g/dL (31-37); MEAN CORPUSCULAR VOLUME 72 fL (79-100); MONO # 0.3 x10^3/uL (0.0-1.1); MONO % 7 % (0-9); NEUT # 3.4 x10^3/uL (1.8-7.7); NEUT % 78 % (31-73); PLATELET COUNT 304 x10^3/uL (140-400); RED CELL DISTRIBUTION WIDTH 17.2 % (11.5-14.5); WHITE BLOOD COUNT 4.3 x10^3/uL (4.0-11.0)
--- NOTE | 2022-02-22 16:05 | PHYS DOC ---
Past Medical History Past Medical History: Anxiety, Diabetes-Type II, GERD, High Cholesterol, Hypertension Additional Past Medical Histor: ULCERATIVE COLITIS Past Surgical History: Appendectomy, Cholecystectomy, Hysterectomy, Other Additional Past Surgical Histo: HERNIA REPAIR,FISTULA REPAIR,RECTAL PROLAPSE,PLATE & SCREWS IN CHEST Smoking Status: Never Smoker Alcohol Use: None Drug Use: None General Adult EDM: Chief Complaint: ABDOMINAL PAIN HPI: HPI: Patient is a 51 year old female with past medical history that includes GERD and ulcerative colitis who presents with left lower quadrant abdominal pain, rectal pain, nausea/vomiting and bright red blood per rectum that began yesterday. Patient reports left lower quadrant abdominal pain and rectal pain that is sharp in nature 8/10 and nonradiating. She states the pain is not changed since onset yesterday. Patient reports 7 episodes of emesis since yesterday afternoon without any blood noted in vomitus. She does report loose stools with one episode of bloody stool. Patient denies straining and constipation. Patient denies fever, chills, generalized weakness, dysuria, hematuria. Review of Systems: Review of Systems: Constitutional: See HPI Eyes: Denies change in visual acuity, visual field deficits or discharge HENT: Denies ear pain, nasal congestion or sore throat Respiratory: Denies cough or shortness of breath Cardiovascular: Denies chest pain, palpitations or edema GI: See HPI : See HPI Musculoskeletal: Denies back pain or joint pain Integument: Denies rash or other skin lesion Neurologic: Denies headache, focal weakness or sensory changes Heart Score: C/O Chest Pain: No Current Medications: Current Medications Medications (Trade) Dose Ordered Sig/[facility] Start Time Stop Time Status Last Admin Dose Admin Famotidine (Pepcid Vial) 20 mg 1X ONCE 02/22/22 14:30 02/22/22 14:34 DC 02/22/22 15:29 20 MG Iohexol (Omnipaque 300 Mg/ml) 75 ml 1X ONCE 02/22/22 15:30 02/22/22 15:31 DC Morphine Sulfate (Morphine Sulfate) 2 mg 1X ONCE 02/22/22 14:30 02/22/22 14:34 DC 02/22/22 15:30 2 MG Ondansetron HCl (Zofran) 4 mg 1X ONCE 02/22/22 14:30 02/22/22 14:34 DC 02/22/22 15:30 4 MG Ringer's Solution 1,000 ml @ 1,000 mls/hr 1X ONCE 02/22/22 14:30 02/22/22 15:29 DC 02/22/22 14:30 1,000 MLS/HR Allergies: Allergies: Allergies Coded Allergies Type Severity Reaction Last Updated Verified cephalexin Allergy Intermediate rash, red ears 08/29/18 Yes ketorolac Allergy Intermediate HIVES 11/22/18 Yes prochlorperazine Allergy Intermediate 11/24/16 Yes droperidol Adverse Reaction Mild anxiety 09/06/21 Yes Physical Exam: PE: Constitutional: Beese, no acute distress, non-toxic appearance. HENT: Normocephalic, atraumatic, bilateral external ears normal, nose normal. Eyes: EOMI, conjunctiva normal, no discharge. Neck: Normal range of motion, no stridor. Abdomen: Bowel sounds normal, soft, left lower quadrant tenderness without rebound or guarding, no masses, no pulsatile masses. Rectal: No external hemorrhoids appreciated, no amari blood, 2 mm slightly raised pink lesion noted 7 o'clock position without surrounding erythema or underlying fluctuance or induration, rectal tone intact, soft lesion palpated at the 12 o'clock position rectum, VÍCTOR did cause moderate discomfort to the patient. Skin: Warm, dry, no erythema, no rash. Extremities: No tenderness, no cyanosis, no clubbing, ROM intact, no edema. Neurologic: Alert and oriented x4, normal motor function, normal sensory function, no focal deficits noted. Current Patient Data: Labs: Laboratory Tests Test 02/22/22 14:06 02/22/22 14:22 02/22/22 15:40 Urine Collection Type Unknown Urine Color (Auto) Colorless Urine Turbidity Clear Urine pH (Auto) 6.5 (<5.0-8.0) Urine Specific [place] 1.006 (1.000-1.030) Urine Protein (Auto) Negative mg/dL (Negative) Urine Glucose (Auto)(UA) Negative mg/dL (Negative) Urine Ketones (Auto) Negative mg/dL (Negative) Urine Blood (Auto) Large (Negative) Urine Nitrite Negative (Negative) Urine Bilirubin (Auto) Negative (Negative) Urine Urobilinogen (Auto) Normal mg/dL (Normal) Urine Leukocyte Esterase (Auto) Negative (Negative) Urine RBC >40 /HPF (0-2) Urine WBC Occ /HPF (0-4) Urine Bacteria 0 /HPF (0-FEW) Stool Occult Blood Positive (NEG) White Blood Count 4.3 x10^3/uL (4.0-11.0) Red Blood Count 3.30 x10^6/uL (3.50-5.40) Hemoglobin 7.4 g/dL (12.0-15.5) Hematocrit 23.6 % (36.0-47.0) Mean Corpuscular Volume 72 fL (79-100) Mean Corpuscular Hemoglobin 23 pg (25-35) Mean Corpuscular Hemoglobin Concent 31 g/dL (31-37) Red Cell Distribution Width 17.2 % (11.5-14.5) Platelet Count 304 x10^3/uL (140-400) Neutrophils (%) (Auto) 78 % (31-73) Lymphocytes (%) (Auto) 11 % (24-48) Monocytes (%) (Auto) 7 % (0-9) Eosinophils (%) (Auto) 3 % (0-3) Basophils (%) (Auto) 1 % (0-3) Neutrophils # (Auto) 3.4 x10^3/uL (1.8-7.7) Lymphocytes # (Auto) 0.5 x10^3/uL (1.0-4.8) Monocytes # (Auto) 0.3 x10^3/uL (0.0-1.1) Eosinophils # (Auto) 0.1 x10^3/uL (0.0-0.7) Basophils # (Auto) 0.0 x10^3/uL (0.0-0.2) Platelet Estimate Adequate (ADEQUATE) Hypochromasia Mod Poikilocytosis Slight Anisocytosis Slight Microcytosis Mod Ovalocytes Few Sodium Level 141 mmol/L (136-145) Potassium Level 3.6 mmol/L (3.5-5.1) Chloride Level 105 mmol/L (98-107) Carbon Dioxide Level 27 mmol/L (21-32) Anion Gap 9 (6-14) Blood Urea Nitrogen 12 mg/dL (7-20) Creatinine 0.7 mg/dL (0.6-1.0) Estimated GFR (Cockcroft-Gault) 87.9 BUN/Creatinine Ratio 17 (6-20) Glucose Level 106 mg/dL (70-99) Calcium Level 8.5 mg/dL (8.5-10.1) Magnesium Level 1.6 mg/dL (1.8-2.4) Total Bilirubin 0.3 mg/dL (0.2-1.0) Aspartate Amino Transf (AST/SGOT) 12 U/L (15-37) Alanine Aminotransferase (ALT/SGPT) 19 U/L (14-59) Alkaline Phosphatase 111 U/L (46-116) C-Reactive Protein, Quantitative 2.0 mg/L (0-3.3) Total Protein 6.8 g/dL (6.4-8.2) Albumin 3.3 g/dL (3.4-5.0) Albumin/Globulin Ratio 0.9 (1.0-1.7) Lipase 129 U/L (73-393) Vital Signs: Vital Signs Date Time Temp Pulse Resp B/P (MAP) Pulse Ox O2 Delivery O2 Flow Rate FiO2 02/22/22 17:57 18 99 Room Air 02/22/22 17:30 83 16 180/93 (122) 98 Room Air 02/22/22 16:56 18 100 Room Air 02/22/22 16:42 88 20 164/109 (127) 97 Room Air 02/22/22 16:00 86 18 156/100 (118) 97 Room Air 02/22/22 15:30 16 98 02/22/22 13:50 98.4 103 19 151/93 (112) 98 Room Air 98.4 Radiology/Procedures: Radiology/Procedures: PROCEDURE: CT ABD PELV W/ IV CONTRST ONLY Exam: CT of abdomen and pelvis with contrast INDICATION: Left lower quadrant pain, bright red blood per rectum TECHNIQUE: Sequential axial images through the abdomen and pelvis obtained following the administration of 75 mL of Isovue-370 IV contrast. Sagittal and coronal reformatted images were reconstructed from the axial data and reviewed. Exposure: One or more of the following in the visualized dose reduction techniques were utilized for this examination: 1. Automated exposure control 2. Adjustment of the MA and/or KV according to patient size 3. Use of iterative of reconstructive technique Comparisons: 09/05/2021 FINDINGS: Heart size is normal. No pericardial effusion. Visualized lung bases are clear. No pleural effusion. Liver, spleen, pancreas, and adrenals are unremarkable. Gallbladder surgically absent. No perinephric inflammation or hydronephrosis. No renal or ureteral calculi are identified. Bladder is decompressed not well evaluated. Uterus is absent. No abnormal adnexal mass. There is mild asymmetric wall thickening at the rectum. Remainder large and small bowel are unremarkable. No free intra-abdominal air or fluid. No obstruction. Appendix is absent. Abdominal aorta has normal course and caliber. Abdominal vasculature is patent. No enlarged intra-abdominal lymph nodes are identified. Compression fracture involving the superior endplate of L1 with vertebroplasty changes. No suspicious osseous lesions or acute fractures. IMPRESSION: 1. Mild focal wall thickening at the rectum is nonspecific and may relate to colitis. Recommend colonoscopy posttreatment to ensure no underlying neoplasm. 2. No significant diverticulosis. Electronically signed by: Laura Maloney MD (02/22/2022 5:00 PM) [facility] Course & Med Decision Making: Course & Med Decision Making Pertinent Labs and Imaging studies reviewed. (See chart for details) Patient is a 51-year-old female who presents with left lower quadrant and rectal pain. With her history of ulcerative colitis as well as bloody stool, work-up will consist of labs that include fecal Hemoccult, CT abdomen pelvis with IV contrast, urinalysis. It was somewhat difficult to obtain IV placement for IV contrast administration, as the patient has had iron infusions for the past 14 years for chronic anemia. After 2 doses of IV morphine, patient's pain is not well controlled. At this time, decision was made to admit the patient for pain control and further management of what appears to be an ulcerative colitis flare. Discussed treatment plan with the patient, who verbalizes understanding and agreement. Hospitalist Dr. Jeong accepts patient for admission. Charbel Disclaimer: Charbel Disclaimer: This electronic medical record was generated, in whole or in part, using a voice recognition dictation system. Departure Departure Impression: Primary Impression: Chronic ulcerative colitis with rectal bleeding Qualified Codes: K51.911 - Ulcerative colitis, unspecified with rectal bleeding Additional Impression: Intractable pain Disposition: ADMITTED INPATIENT Admitting Physician: DAVID Vargas) Condition: GUARDED Referrals: UNKNOWN PCP NAME (PCP) ORLIN LUNA February 22, 2022 16:05
[2022-02-22 16:10] LABS: CALCIUM 8.5 mg/dL (8.5-10.1); CREATININE 0.7 mg/dL (0.6-1.0); GFR 87.9; POTASSIUM 3.6 mmol/L (3.5-5.1)
[2022-02-22 16:16] LABS: ALBUMIN 3.3 g/dL (3.4-5.0); ALBUMIN/GLOBULIN RATIO 0.9 (1.0-1.7); MAGNESIUM 1.6 mg/dL (1.8-2.4); TOTAL BILIRUBIN 0.3 mg/dL (0.2-1.0); TOTAL PROTEIN 6.8 g/dL (6.4-8.2)
[2022-02-22 16:26] LABS: ANISOCYTOSIS SLIGHT; HYPOCHROMIA MOD; MICROCYTOSIS MOD; PLT ESTIMATE ADEQUATE (ADEQUATE); POIKILOCYTOSIS SLIGHT
[2022-02-22 16:27] LABS: OVALOCYTES FEW
--- NOTE | 2022-02-22 17:03 | RAD ---
Exam: CT of abdomen and pelvis with contrast INDICATION: Left lower quadrant pain, bright red blood per rectum TECHNIQUE: Sequential axial images through the abdomen and pelvis obtained following the administrati on of 75 mL of Isovue-370 IV contrast. Sagittal and coronal reformatted images were reconstructed fro m the axial data and reviewed. Exposure: One or more of the following in the visualized dose reduction techniques were utilized for this examination: 1. Automated exposure control 2. Adjustment of the MA and/or KV according to patient size 3. Use of iterative of reconstructive technique Comparisons: 09/05/2021 FINDINGS: Heart size is normal. No pericardial effusion. Visualized lung bases are clear. No pleural effusion. Liver, spleen, pancreas, and adrenals are unremarkable. Gallbladder surgically absent. No perinephric inflammation or hydronephrosis. No renal or ureteral calculi are identified. Bladder is decompressed not well evaluated. Uterus is absent. No abnormal adnexal mass. There is mild asymmetric wall thickening at the rectum. Remainder large and small bowel are unremarka ble. No free intra-abdominal air or fluid. No obstruction. Appendix is absent. Abdominal aorta has normal course and caliber. Abdominal vasculature is patent. No enlarged intra-abdominal lymph nodes are identified. Compression fracture involving the superior endplate of L1 with vertebroplasty changes. No suspicious osseous lesions or acute fractures. IMPRESSION: 1. Mild focal wall thickening at the rectum is nonspecific and may relate to colitis. Recommend colo noscopy posttreatment to ensure no underlying neoplasm. 2. No significant diverticulosis. Electronically signed by: Laura Maloney MD (02/22/2022 5:00 PM) [facility]
[2022-02-22] MEDS ORDERED: HYDROmorphone 2 MG/ML INJ. IVP ONE (17:45)
[2022-02-22] MEDS ORDERED: methylPREDNISolone SOD SUCC PF 40 MG/ML VIAL. IV ONE (17:45)
[2022-02-22] MEDS ORDERED: ACETAMINOPHEN 325 MG TABLET. PO PRN (18:00)
[2022-02-22] MEDS ORDERED: MAGNESIUM SULFATE 4GM 100 ML IV ONE (18:00)
[2022-02-22] MEDS ORDERED: fentaNYL PF VIAL 100 MCG/2 ML VIAL IVP PRN (18:00)
[2022-02-22] MEDS ORDERED: traMADol 50 MG TABLET PO PRN (18:00)
[2022-02-22] MEDS ORDERED: ONDANSETRON PF 4 MG/2 ML VIAL. IVP PRN (18:00)
[2022-02-22] MEDS ORDERED: POTASSIUM CL 20MEQ D5-0.45NACL 1,000 ML IV ONE (18:00)
[2022-02-22] MEDS ORDERED: ALPRAZolam 0.25 MG TABLET PO PRN (18:30)
[2022-02-22] MEDS ORDERED: IV DEXTROSE 5% 250 ML BAG. IV PRN (18:30)
[2022-02-22] MEDS ORDERED: DEXTROSE 50% 25 GM / 50ML DISP.SYRIN. IV PRN (18:30)
[2022-02-22] MEDS ORDERED: DICYCLOMINE HCL 10 MG CAPSULE PO PRN (18:30)
[2022-02-22] MEDS ORDERED: ONDANSETRON ODT 4 MG TAB.RAPDIS. PO PRN (18:30)
[2022-02-22] MEDS ORDERED: ZOLPIDEM 5 MG TABLET. PO PRN (18:30)
--- NOTE | 2022-02-22 18:31 | PDOC1 ---
History and Physical Date of Admission Date of Admission DATE: 02/22/22 TIME: 17:52 Identification/Chief Complaint Chief Complaint Abdominal pain, GI bleeding Source Source: Patient History of Present Illness History of Present Illness Ms Olivares is a 51yo female with PMHx ulcerative colitis, anxiety with depression, chronic iron deficiency anemia presents to the ED with 24 hours of severe crampy abdominal pain bright red blood per rectum and voluminous diarrhea as well as associated nausea. Pain is crampy and diffuse but mostly relegated to the left lower quadrant and rectal area. She has a history of ulcerative colitis and is on maintenance therapy through her primary care provider at [facility], [place] takes sulfasalazine and Bentyl and scheduled for outpatient iron infusions. 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 CT abdomen pelvis with focal rectal thickening. Her pain was not responsive to 2 doses of IV morphine given IV Dilaudid still with pain and some nausea admitted for further care given IV Solu-Medrol in ED given concern for ulcerative colitis flare. Type and screen sent Past Medical History Cardiovascular: Hyperlipidemia Pulmonary: No pertinent hx CENTRAL NERVOUS SYSTEM: Other GI: GERD, Inflam bowel disease, Other Heme/Onc: Anemia NOS Hepatobiliary: Cholelithiasis Psych: Anxiety, Depression Musculoskeletal: Osteoarthritis, Other Rheumatologic: No pertinent hx Infectious disease: No pertinent hx Renal/: UTI Endocrine: No pertinent hx Past Surgical History Past Surgical History: Appendectomy, Cholecystectomy, Hernia Repair, Hysterectomy, Other Family History Family History: Depression, High Cholestrol Family History: Parent Social History Smoke: Quit ALCOHOL: occassional Drugs: Marijuana Current Problem List Problem List Problems Medical Problems: (1) Chronic ulcerative colitis with rectal bleeding Status: Acute (2) Intractable pain Status: Acute Current Medications Current Medications Current Medications Ringer's Solution 1,000 ml @ 1,000 mls/hr 1X ONCE IV Last administered on 02/22/22at 14:30; Start 02/22/22 at 14:30; Stop 02/22/22 at 15:29; Status DC Ondansetron HCl (Zofran) 4 mg 1X ONCE IVP Last administered on 02/22/22at 15:30; Start 02/22/22 at 14:30; Stop 02/22/22 at 14:34; Status DC Famotidine (Pepcid Vial) 20 mg 1X ONCE IVP Last administered on 02/22/22at 15:29; Start 02/22/22 at 14:30; Stop 02/22/22 at 14:34; Status DC Morphine Sulfate (Morphine Sulfate) 2 mg 1X ONCE IVP Last administered on 02/22/22at 15:30; Start 02/22/22 at 14:30; Stop 02/22/22 at 14:34; Status DC Iohexol (Omnipaque 300 Mg/ml) 75 ml 1X ONCE IV Last administered on 02/22/22at 15:30; Start 02/22/22 at 15:30; Stop 02/22/22 at 15:31; Status DC Morphine Sulfate (Morphine Sulfate) 2 mg 1X ONCE IVP Last administered on 02/22/22at 16:56; Start 02/22/22 at 17:00; Stop 02/22/22 at 17:01; Status DC Hydromorphone HCl (Dilaudid) 1 mg 1X ONCE IVP ; Start 02/22/22 at 17:45; Stop 02/22/22 at 17:46 Methylprednisolone Sodium Succinate (SOLU-Medrol 40MG VIAL) 80 mg 1X ONCE IV ; Start 02/22/22 at 17:45; Stop 02/22/22 at 17:46 Active Scripts Active Lidocaine 1 Each Adh..patch 1 Each TP Q12HR PRN Keep patch in place of discomfort for 12 hours. Remove and leave patch off for next 12 hours before placement of new patch. Ondansetron Hcl 4 Mg Tablet 1 Tab PO PRN Q6HRS PRN 3 Days Zofran (Ondansetron Hcl) 4 Mg Tablet 1 Tab PO Q8HRS PRN Reported Percocet 5-325 Mg Tablet (Oxycodone/Acetaminophen) 1 Each Tablet 1 Tab PO PRN Q6HRS PRN Simvastatin 20 Mg Tablet 1 Tab PO QHS Trazodone Hcl 100 Mg Tablet 100 Mg PO HS Xanax Xr (Alprazolam) 1 Mg Tab.er.24h 2 Mg PO DAILY Cymbalta (Duloxetine Hcl) 60 Mg Capsule.dr 120 Mg PO DAILY Prevacid 24HR (Lansoprazole) 15 Mg Capsule.dr 30 Mg PO DAILY Allergies Allergies: Coded Allergies: cephalexin (Verified Allergy, Intermediate, rash, red ears, 08/29/18) ketorolac (Verified Allergy, Intermediate, HIVES, 11/22/18) prochlorperazine (Verified Allergy, Intermediate, 11/24/16) droperidol (Verified Adverse Reaction, Mild, anxiety, 09/06/21) ROS General: YES: Fatigue, Malaise, Appetite; No: Chills, Night Sweats, Other PSYCHOLOGICAL ROS: No: Anxiety, Behavioral Disorder, Concentration difficultie, Decreased libido, Depression, Disorientation, Hallucinations, Hostility, Irritablity, Memory difficulties, Mood Swings, Obsessive thoughts, Physical abuse, Sexual abuse, Sleep disturbances, Suicidal ideation, Other Eyes: No Blurry vision, No Decreased vision, No Double vision, No Dry eyes, No Excessive tearing, No Eye Pain, No Itchy Eyes, No Loss of vision, No Ph otophobia, No Scotomata, No Uses contacts, No Uses glasses, No Other HEENT: No: Heacaches, Visual Changes, Hearing change, Nasal congestion, Nasal discharge, Oral lesions, Sinus pain, Sore Throat, Epistaxis, Sneezing, Snoring, Tinnitus, Vertigo, Vocal changes, Other ALLERGY AND IMMUNOLOGY: No: Hives, Insect Bite Sensitivity, Itchy/Watery Eyes, Nasal Congestion, Post Nasal Drip, Seasonal Allergies, Other Hematological and Lymphatic: YES: Blood Transfusions; No: Bleeding Problems, Blood Clots, Brusing, Night Sweats, Pallor, Swollen Lymph Nodes, Other ENDOCRINE: No: Breast Changes, Galactorrhea, Hair Pattern Changes, Hot Flashes, Malaise/lethargy, Mood Swings, Palpitations, Polydipsia/polyuria, Skin Changes, Temperature Intolerance, Unexpected Weight Changes, Other Breast: No New/Changing Breast Lumps, No Nipple changes, No Nipple discharge, No Other Respiratory: No: Cough, Hemoptysis, Orthopnea, Pleuritic Pain, Shortness of breath, SOB with excertion, Sputum Changes, Stridor, Tachypnea, Wheezing, Other Cardiovascular: No Chest Pain, No Palpitations, No Orthopnea, No Paroxysmal Noc. Dyspnea, No Edema, No Lt Headedness, No Other Gastrointestinal: Yes Nausea, Yes Abdominal Pain, Yes Diarrhea, Yes Hematochezia; No Vomiting, No Constipation, No Melena, No Other Genitourinary: No Dysuria, No Frequency, No Incontinence, No Hematuria, No Retention, No Discharge, No Urgency, No Pain, No Flank Pain, No Other, No , No , No , No , No , No , No Musculoskeletal: No Gait Disturbance, No Joint Pain, No Joint Stiffness, No Joint Swelling, No Muscle Pain, No Muscular Weakness, No Pain In:, No Swelling In:, No Other Neurological: No Behavorial Changes, No Bowel/Bladder ControlChng, No Con fusion, No Dizziness, No Gait Disturbance, No Headaches, No Impaired Coord/balance, No Memory Loss, No Numbness/Tingling, No Seizures, No Speech Problems, No Tremors, No Visual Changes, No Weakness, No Other Skin: No Dry Skin, No Eczema, No Hair Changes, No Lumps, No Mole Changes, No Mottling, No Nail Changes, No Pruritus, No Rash, No Skin Lesion Changes, No O ther, No Acne Physical Exam General: Alert, Oriented X3, Cooperative, severe distress HEENT: Atraumatic, PERRLA, EOMI, Mucous membr. moist/pink Lungs: Clear to auscultation, Normal air movement Heart: S1S2, RRR, no thrills, no rubs, no gallops, no murmurs Abdomen: Normal bowel sounds, Soft, No hepatosplenomegaly, No masses, Other (Left lower quadrant tenderness) Rectal Exam: other (Blood per rectum) Extremities: No clubbing, No cyanosis, No edema, Normal pulses, No tend erness/swelling Skin: No rashes, No breakdown, No significant lesion Neuro: Normal gait, Normal speech, Strength at 5/5 X4 ext, Normal tone, Sensation intact, Cranial nerves 3-12 NL, Reflexes 2+ Psych/Mental Status: Mental status NL, Mood NL Vitals Vitals Vital Signs Date Time Temp Pulse Resp B/P (MAP) Pulse Ox O2 Delivery O2 Flow Rate FiO2 02/22/22 17:30 83 16 180/93 (122) 98 Room Air 02/22/22 13:50 98.4 98.4 Labs Labs Laboratory Tests Test 02/22/22 14:06 02/22/22 14:22 02/22/22 15:40 Urine Collection Type Unknown Urine Color (Auto) Colorless Urine Turbidity Clear Urine pH (Auto) 6.5 (<5.0-8.0) Urine Specific Fisher 1.006 (1.000-1.030) Urine Protein (Auto) Negative mg/dL (Negative) Urine Glucose (Auto)(UA) Negative mg/dL (Negative) Urine Ketones (Auto) Negative mg/dL (Negative) Urine Blood (Auto) Large (Negative) Urine Nitrite Negative (Negative) Urine Bilirubin (Auto) Negative (Negative) Urine Urobilinogen (Auto) Normal mg/dL (Normal) Urine Leukocyte Esterase (Auto) Negative (Negative) Urine RBC >40 /HPF (0-2) Urine WBC Occ /HPF (0-4) Urine Bacteria 0 /HPF (0-FEW) Stool Occult Blood Positive (NEG) White Blood Count 4.3 x10^3/uL (4.0-11.0) Red Blood Count 3.30 x10^6/uL (3.50-5.40) Hemoglobin 7.4 g/dL (12.0-15.5) Hematocrit 23.6 % (36.0-47.0) Mean Corpuscular Volume 72 fL (79-100) Mean Corpuscular Hemoglobin 23 pg (25-35) Mean Corpuscular Hemoglobin Concent 31 g/dL (31-37) Red Cell Distribution Width 17.2 % (11.5-14.5) Platelet Count 304 x10^3/uL (140-400) Neutrophils (%) (Auto) 78 % (31-73) Lymphocytes (%) (Auto) 11 % (24-48) Monocytes (%) (Auto) 7 % (0-9) Eosinophils (%) (Auto) 3 % (0-3) Basophils (%) (Auto) 1 % (0-3) Neutrophils # (Auto) 3.4 x10^3/uL (1.8-7.7) Lymphocytes # (Auto) 0.5 x10^3/uL (1.0-4.8) Monocytes # (Auto) 0.3 x10^3/uL (0.0-1.1) Eosinophils # (Auto) 0.1 x10^3/uL (0.0-0.7) Basophils # (Auto) 0.0 x10^3/uL (0.0-0.2) Platelet Estimate Adequate (ADEQUATE) Hypochromasia Mod Poikilocytosis Slight Anisocytosis Slight Microcytosis Mod Ovalocytes Few Sodium Level 141 mmol/L (136-145) Potassium Level 3.6 mmol/L (3.5-5.1) Chloride Level 105 mmol/L (98-107) Carbon Dioxide Level 27 mmol/L (21-32) Anion Gap 9 (6-14) Blood Urea Nitrogen 12 mg/dL (7-20) Creatinine 0.7 mg/dL (0.6-1.0) Estimated GFR (Cockcroft-Gault) 87.9 BUN/Creatinine Ratio 17 (6-20) Glucose Level 106 mg/dL (70-99) Calcium Level 8.5 mg/dL (8.5-10.1) Magnesium Level 1.6 mg/dL (1.8-2.4) Total Bilirubin 0.3 mg/dL (0.2-1.0) Aspartate Amino Transf (AST/SGOT) 12 U/L (15-37) Alanine Aminotransferase (ALT/SGPT) 19 U/L (14-59) Alkaline Phosphatase 111 U/L (46-116) Total Protein 6.8 g/dL (6.4-8.2) Albumin 3.3 g/dL (3.4-5.0) Albumin/Globulin Ratio 0.9 (1.0-1.7) Lipase 129 U/L (73-393) Laboratory Tests Test 02/22/22 14:06 02/22/22 14:22 02/22/22 15:40 Urine Collection Type Unknown Urine Color (Auto) Colorless Urine Turbidity Clear Urine pH (Auto) 6.5 (<5.0-8.0) Urine Specific Fisher 1.006 (1.000-1.030) Urine Protein (Auto) Negative mg/dL (Negative) Urine Glucose (Auto)(UA) Negative mg/dL (Negative) Urine Ketones (Auto) Negative mg/dL (Negative) Urine Blood (Auto) Large (Negative) Urine Nitrite Negative (Negative) Urine Bilirubin (Auto) Negative (Negative) Urine Urobilinogen (Auto) Normal mg/dL (Normal) Urine Leukocyte Esterase (Auto) Negative (Negative) Urine RBC >40 /HPF (0-2) Urine WBC Occ /HPF (0-4) Urine Bacteria 0 /HPF (0-FEW) Stool Occult Blood Positive (NEG) White Blood Count 4.3 x10^3/uL (4.0-11.0) Red Blood Count 3.30 x10^6/uL (3.50-5.40) Hemoglobin 7.4 g/dL (12.0-15.5) Hematocrit 23.6 % (36.0-47.0) Mean Corpuscular Volume 72 fL (79-100) Mean Corpuscular Hemoglobin 23 pg (25-35) Mean Corpuscular Hemoglobin Concent 31 g/dL (31-37) Red Cell Distribution Width 17.2 % (11.5-14.5) Platelet Count 304 x10^3/uL (140-400) Neutrophils (%) (Auto) 78 % (31-73) Lymphocytes (%) (Auto) 11 % (24-48) Monocytes (%) (Auto) 7 % (0-9) Eosinophils (%) (Auto) 3 % (0-3) Basophils (%) (Auto) 1 % (0-3) Neutrophils # (Auto) 3.4 x10^3/uL (1.8-7.7) Lymphocytes # (Auto) 0.5 x10^3/uL (1.0-4.8) Monocytes # (Auto) 0.3 x10^3/uL (0.0-1.1) Eosinophils # (Auto) 0.1 x10^3/uL (0.0-0.7) Basophils # (Auto) 0.0 x10^3/uL (0.0-0.2) Platelet Estimate Adequate (ADEQUATE) Hypochromasia Mod Poikilocytosis Slight Anisocytosis Slight Microcytosis Mod Ovalocytes Few Sodium Level 141 mmol/L (136-145) Potassium Level 3.6 mmol/L (3.5-5.1) Chloride Level 105 mmol/L (98-107) Carbon Dioxide Level 27 mmol/L (21-32) Anion Gap 9 (6-14) Blood Urea Nitrogen 12 mg/dL (7-20) Creatinine 0.7 mg/dL (0.6-1.0) Estimated GFR (Cockcroft-Gault) 87.9 BUN/Creatinine Ratio 17 (6-20) Glucose Level 106 mg/dL (70-99) Calcium Level 8.5 mg/dL (8.5-10.1) Magnesium Level 1.6 mg/dL (1.8-2.4) Total Bilirubin 0.3 mg/dL (0.2-1.0) Aspartate Amino Transf (AST/SGOT) 12 U/L (15-37) Alanine Aminotransferase (ALT/SGPT) 19 U/L (14-59) Alkaline Phosphatase 111 U/L (46-116) Total Protein 6.8 g/dL (6.4-8.2) Albumin 3.3 g/dL (3.4-5.0) Albumin/Globulin Ratio 0.9 (1.0-1.7) Lipase 129 U/L (73-393) Images Images CT ABD PELV W/ IV CONTRST ONLY Exam: CT of abdomen and pelvis with contrast INDICATION: Left lower quadrant pain, bright red blood per rectum TECHNIQUE: Sequential axial images through the abdomen and pelvis obtained following the administration of 75 mL of Isovue-370 IV contrast. Sagittal and coronal reformatted images were reconstructed from the axial data and reviewed. Exposure: One or more of the following in the visualized dose reduction techniques were utilized for this examination: 1. Automated exposure control 2. Adjustment of the MA and/or KV according to patient size 3. Use of iterative of reconstructive technique Comparisons: 09/05/2021 FINDINGS: Heart size is normal. No pericardial effusion. Visualized lung bases are clear. No pleural effusion. Liver, spleen, pancreas, and adrenals are unremarkable. Gallbladder surgically absent. No perinephric inflammation or hydronephrosis. No renal or ureteral calculi are identified. Bladder is decompressed not well evaluated. Uterus is absent. No abnormal adnexal mass. There is mild asymmetric wall thickening at the rectum. Remainder large and small bowel are unremarkable. No free intra-abdominal air or fluid. No obstruction. Appendix is absent. Abdominal aorta has normal course and caliber. Abdominal vasculature is patent. No enlarged intra-abdominal lymph nodes are identified. Compression fracture involving the superior endplate of L1 with vertebroplasty changes. No suspicious osseous lesions or acute fractures. IMPRESSION: 1. Mild focal wall thickening at the rectum is nonspecific and may relate to colitis. Recommend colonoscopy posttreatment to ensure no underlying neoplasm. 2. No significant diverticulosis. VTE Prophylaxis Ordered VTE Prophylaxis Devices: Yes VTE Pharmacological Prophylaxi: No Assessment/Plan Assessment/Plan Intractable abdominal pain - likely ulcerative colitis flare vs proctitis Acute anemia - type and screen, check iron levels. Likely due to UC flare, blood loss anemia, transfuse if Hb <7 Acute rectal bleeding -no clear hemorrhoids. Likely is ulcerative colitis flare. Will check for Salmonella Shigella Diabetes mellitus type 2 -sliding scale insulin. Her last A1c in 2019 was 6.1 GERD -lansoprazole Anxiety with depression - on Xanax as needed and Cymbalta nightly stopped taking trazodone. Also has insomnia on Lunesta Ulcerative colitis - sulfasalazine and bentyl Hypomagnesemia -likely due to GI losses. Will replace. FEN - GI soft diet. D5 half-normal saline with 20 mg of potassium chloride PPX -PPI, hold Lovenox due to active blood loss CODE STATUS full Dispo - inpatient DPOA: Father, Thomas Marks Justifications for Admission Other Justification Ulcerative colitis flare JIMBO MORALES MD February 22, 2022 18:30
[2022-02-22 19:00] VITALS: BP 139/103
[2022-02-22] MEDS: sulfaSALAzine 500 MG TABLET PO SCH (20:22)
[2022-02-22] MEDS: oxyCODONE IR 5 MG TABLET PO PRN (20:22)
[2022-02-22] MEDS ORDERED: DULoxetine HCL 30 MG CAPSULE.DR PO SCH (21:00)
[2022-02-22] MEDS: HYDROmorphone 2 MG/ML INJ. IVP PRN (21:28)
[2022-02-22] MEDS: INSULIN LISPRO 300 UNITS/3 ML VIAL. SQ SCH (22:50)
[2022-02-22 23:00] VITALS: BP 164/97
[2022-02-23] MEDS: methylPREDNISolone SOD SUCC PF 125 MG/2 ML VIAL. IV SCH ×2 (01:15→06:16)
[2022-02-23] MEDS: HYDROmorphone 2 MG/ML INJ. IVP PRN ×6 (01:16→18:38)
[2022-02-23 03:00] VITALS: BP 145/88
[2022-02-23] MEDS: oxyCODONE IR 5 MG TABLET PO PRN ×3 (03:19→16:55)
[2022-02-23 07:00] VITALS: BP_SYST 136; BP_SYST 143; BP_DIAS 47; BP_DIAS 96
[2022-02-23] MEDS ORDERED: PANTOPRAZOLE 40 MG TABLET.DR. PO SCH (07:30)
[2022-02-23] MEDS: sulfaSALAzine 500 MG TABLET PO SCH (07:50)
[2022-02-23] MEDS: INSULIN LISPRO 300 UNITS/3 ML VIAL. SQ SCH ×3 (09:01→17:37)
--- NOTE | 2022-02-23 09:08 | PDOC2 ---
GI CONSULT Date of Service: DATE: 02/23/22 TIME: 09:08 Reason For Consult: UC flare HPI: HPI: 51 y/o female admitted through ER. Ill since 02/18/22 with sharp stabbing pain in rectum and LLQ, loose stools sometimes mixed with red blood, and n/v. Currently tolerating GI soft diet. No recurrent vomiting or loose stools. H/o GERD on Prevacid QD. H/o LORENZO on iron infusions through [facility]. Says she's been on sulfasalazine for a couple years that this has "decreased flares." Cannot recall other medications taken in past - past note mentions mes alamine suppositories. Last took steroids a few months ago. EGD and colonoscopy in 06/[address] Waldron for GI bleeding showed gastritis, 5cm distal rectal ulcer w/ visible vessel (path w/ epithelial hyperplastic changes, underlying granulation tissue and associated mild acute/chronic inflammation), diverticulosis, two hyperplastic polyps, and one tubular adenoma. Has had 26 abd/pelv CTs here since 2013 including CTA in 2018 w/ patent celiac, SMA, and LETICIA. Rectal thickening/proctitis noted on some along w/ hepatic steatosis and diverticulosis. Note from radiologist in 06/2017 - "Please note that patient has had numerous CTs of the abdomen and pelvis at many hospital facilities. Extreme care in the future should be taken regarding indications for CT imaging." Has been to the ER 15 times since we saw her during admission in 06/2020. (Was also briefly admitted and had GI consult in 08/2021.) SBS negative in 2018. S/p cholecystectomy. B12 low-normal and TSH normal in 06/2020. Tells me she takes hydrocodone PRN for abdominal pain - not daily. No GI follow-up do to issues w/ insurance. Getting high dose IV steroids currently. ER physician documentation from 09/2021: "The patient is a 51-year-old female with a history of chronic pain and narcotic abuse, very well-known to me and to this facility. She is known to serially visit virtually every hospital in the [facility] region for her chronic pain, requesting IV narcotics. Went to bedside to see the patient and advised her that I would be more than happy to evaluate her for acute medical pathology today with labs and, if indicated, imaging, but that her pain would be addressed with non-narcotic medications only while here in the emergency department. When told that she would not receive narcotic pain medication today unless evaluation demonstrated acute pathology requiring admission, patient stated that she preferred to leave before completion of medical screening. She stood up and walked out of the room and left the emergency department with a narrow, steady gait." PMH: PMH: HTN, HLD, anxiety/depression/panic appendectomy, cholecystectomy, umbilical hernia repair, rectal prolapse repair, hysterectomy, BSO FH: Family History: No pertinent hx Social History: Smoke: Quit (4 years ago) ALCOHOL: occassional Drugs: Marijuana (she denies - positive on 01/26 past tox screens) ROS: GEN: Denies fevers, chills, sweats HEENT: Denies blurred vision, sore throat CV: Denies chest pain RESP: Denies shortness of air, cough GI: Per HPI : Denies hematuria, dysuria ENDO: Denies weight changes NEURO: Denies confusion, dizziness MSK: Denies weakness, joint pain/swelling SKIN: Denies jaundice, pruritus Vitals: Vitals: Vital Signs Date Time Temp Pulse Resp B/P (MAP) Pulse Ox O2 Delivery O2 Flow Rate FiO2 02/23/22 08:54 20 Room Air 02/23/22 07:00 97.4 63 136/47 (76) 100 97.4 Labs: Labs: Laboratory Tests Test 02/22/22 14:06 02/22/22 14:22 02/22/22 15:40 02/22/22 20:41 Urine Collection Type Unknown Urine Color (Auto) Colorless Urine Turbidity Clear Urine pH (Auto) 6.5 (<5.0-8.0) Urine Specific [place] 1.006 (1.000-1.030) Urine Protein (Auto) Negative mg/dL (Negative) Urine Glucose (Auto)(UA) Negative mg/dL (Negative) Urine Ketones (Auto) Negative mg/dL (Negative) Urine Blood (Auto) Large (Negative) Urine Nitrite Negative (Negative) Urine Bilirubin (Auto) Negative (Negative) Urine Urobilinogen (Auto) Normal mg/dL (Normal) Urine Leukocyte Esterase (Auto) Negative (Negative) Urine RBC >40 /HPF (0-2) Urine WBC Occ /HPF (0-4) Urine Bacteria 0 /HPF (0-FEW) Stool Occult Blood Positive (NEG) White Blood Count 4.3 x10^3/uL (4.0-11.0) Red Blood Count 3.30 x10^6/uL (3.50-5.40) Hemoglobin 7.4 g/dL (12.0-15.5) Hematocrit 23.6 % (36.0-47.0) Mean Corpuscular Volume 72 fL (79-100) Mean Corpuscular Hemoglobin 23 pg (25-35) Mean Corpuscular Hemoglobin Concent 31 g/dL (31-37) Red Cell Distribution Width 17.2 % (11.5-14.5) Platelet Count 304 x10^3/uL (140-400) Neutrophils (%) (Auto) 78 % (31-73) Lymphocytes (%) (Auto) 11 % (24-48) Monocytes (%) (Auto) 7 % (0-9) Eosinophils (%) (Auto) 3 % (0-3) Basophils (%) (Auto) 1 % (0-3) Neutrophils # (Auto) 3.4 x10^3/uL (1.8-7.7) Lymphocytes # (Auto) 0.5 x10^3/uL (1.0-4.8) Monocytes # (Auto) 0.3 x10^3/uL (0.0-1.1) Eosinophils # (Auto) 0.1 x10^3/uL (0.0-0.7) Basophils # (Auto) 0.0 x10^3/uL (0.0-0.2) Platelet Estimate Adequate (ADEQUATE) Hypochromasia Mod Poikilocytosis Slight Anisocytosis Slight Microcytosis Mod Ovalocytes Few Erythrocyte Sedimentation Rate 25 (0-25) Sodium Level 141 mmol/L (136-145) Potassium Level 3.6 mmol/L (3.5-5.1) Chloride Level 105 mmol/L (98-107) Carbon Dioxide Level 27 mmol/L (21-32) Anion Gap 9 (6-14) Blood Urea Nitrogen 12 mg/dL (7-20) Creatinine 0.7 mg/dL (0.6-1.0) Estimated GFR (Cockcroft-Gault) 87.9 BUN/Creatinine Ratio 17 (6-20) Glucose Level 106 mg/dL (70-99) Calcium Level 8.5 mg/dL (8.5-10.1) Magnesium Level 1.6 mg/dL (1.8-2.4) Total Bilirubin 0.3 mg/dL (0.2-1.0) Aspartate Amino Transf (AST/SGOT) 12 U/L (15-37) Alanine Aminotransferase (ALT/SGPT) 19 U/L (14-59) Alkaline Phosphatase 111 U/L (46-116) C-Reactive Protein, Quantitative 2.0 mg/L (0-3.3) Total Protein 6.8 g/dL (6.4-8.2) Albumin 3.3 g/dL (3.4-5.0) Albumin/Globulin Ratio 0.9 (1.0-1.7) Lipase 129 U/L (73-393) Glucose (Fingerstick) 275 mg/dL (70-99) Test 02/23/22 07:28 Glucose (Fingerstick) 170 mg/dL (70-99) Allergies: Coded Allergies: cephalexin (Verified Allergy, Intermediate, rash, red ears, 08/29/18) ketorolac (Verified Allergy, Intermediate, HIVES, 11/22/18) prochlorperazine (Verified Allergy, Intermediate, 11/24/16) droperidol (Verified Adverse Reaction, Mild, anxiety, 09/06/21) Medications: Current Medications Medications (Trade) Dose Ordered Sig/Ga Route PRN Reason Start Time Stop Time Status Last Admin Dose Admin Ringer's Solution 1,000 ml @ 1,000 mls/hr 1X ONCE IV 02/22/22 14:30 02/22/22 15:29 DC 02/22/22 14:30 Ondansetron HCl (Zofran) 4 mg 1X ONCE IVP 02/22/22 14:30 02/22/22 14:34 DC 02/22/22 15:30 Famotidine (Pepcid Vial) 20 mg 1X ONCE IVP 02/22/22 14:30 02/22/22 14:34 DC 02/22/22 15:29 Morphine Sulfate (Morphine Sulfate) 2 mg 1X ONCE IVP 02/22/22 14:30 02/22/22 14:34 DC 02/22/22 15:30 Iohexol (Omnipaque 300 Mg/ml) 75 ml 1X ONCE IV 02/22/22 15:30 02/22/22 15:31 DC 02/22/22 15:30 Morphine Sulfate (Morphine Sulfate) 2 mg 1X ONCE IVP 02/22/22 17:00 02/22/22 17:01 DC 02/22/22 16:56 Hydromorphone HCl (Dilaudid) 1 mg 1X ONCE IVP 02/22/22 17:45 02/22/22 17:46 DC 02/22/22 17:57 Methylprednisolone Sodium Succinate (SOLU-Medrol 40MG VIAL) 80 mg 1X ONCE IV 02/22/22 17:45 02/22/22 17:46 DC 02/22/22 17:56 Hydromorphone HCl (Dilaudid) 1 mg PRN Q3HRS PRN IVP SEVERE PAIN, 2nd CHOICE 02/22/22 18:00 02/23/22 08:54 Oxycodone HCl (Roxicodone) 5 mg PRN Q6HRS PRN PO MODERATE PAIN, 2nd CHOICE 02/22/22 18:00 02/23/22 07:50 Magnesium Sulfate 100 ml @ 25 mls/hr 1X ONCE IV 02/22/22 18:00 02/22/22 21:59 DC 02/22/22 18:21 Potassium Chloride/Dextrose/ Sod Cl 1,000 ml @ 100 mls/hr Q10H ONCE IV 02/22/22 18:00 02/23/22 03:59 DC 02/22/22 18:17 Methylprednisolone Sodium Succinate (SOLU-Medrol 125MG VIAL) 60 mg Q6HRS IV 02/23/22 00:00 02/23/22 06:16 Duloxetine HCl (Cymbalta) 120 mg QHS PO 02/22/22 21:00 02/22/22 20:23 Pantoprazole Sodium (Protonix) 40 mg DAILYAC PO 02/23/22 07:30 02/23/22 07:49 Sulfasalazine (Azulfidine) 500 mg BID PO 02/22/22 21:00 02/23/22 07:50 Dicyclomine HCl (Bentyl) 10 mg PRN Q4HRS PRN PO ABDOMINAL CRAMPS 02/22/22 18:30 02/23/22 07:50 Insulin Human Lispro (HumaLOG) 0-9 UNITS TIDACHC SQ 02/22/22 21:00 02/23/22 09:01 Imaging: Imaging: CT A/P FINDINGS: Heart size is normal. No pericardial effusion. Visualized lung bases are clear. No pleural effusion. Liver, spleen, pancreas, and adrenals are unremarkable. Gallbladder surgically absent. No perinephric inflammation or hydronephrosis. No renal or ureteral calculi are identified. Bladder is decompressed not well evaluated. Uterus is absent. No abnormal adnexal mass. There is mild asymmetric wall thickening at the rectum. Remainder large and small bowel are unremarkable. No free intra-abdominal air or fluid. No obstruction. Appendix is absent. Abdominal aorta has normal course and caliber. Abdominal vasculature is patent. No enlarged intra-abdominal lymph nodes are identified. Compression fracture involving the superior endplate of L1 with vertebroplasty changes. No suspicious osseous lesions or acute fractures. IMPRESSION: 1. Mild focal wall thickening at the rectum is nonspecific and may relate to colitis. Recommend colonoscopy posttreatment to ensure no underlying neoplasm. 2. No significant diverticulosis. PE: GEN: NAD HEENT: Atraumatic, PERRL LUNGS: CTAB HEART: RRR ABD: quiet BS, obese, soft, LLQ discomfort - vague EXTREMITY: No edema SKIN: No rashes, no jaundice NEURO/PSYCH: A & O 3 A/P: A/P: Rectal/LLQ pain, loose stools w/ blood, n/v - chronic/recurrent - stool studies ordered/not collected (because no longer stooling), tolerating GI soft diet Chronic LORENZO - reportedly get infusions as outpt, Hgb a bit below recent baseline GERD - on PPI CRC screen, h/o adenomatous polyp - can document colonoscopy in 2018 H/o SRUS, ?UC (not clear ever confirmed with biopsy) - on sulfasalazine Diverticulosis S/p cholecystectomy Hepatic steatosis +cannabinoids in past - no tox screen this time Chronic pain, narcotic dependence, frequent ER visits - see HPI -- D/w Dr. Pena - change to PO steroids. Needs outpt GI follow-up - unclear if truly has UC. Regardless, narcotics not ideal for long-term management for GI-type pain - also some concern for ER shopping/drug seeking per past notes. Continue PPI, follow Hgb, transfuse as needed, check stool studies as able. Hopefully can DC soon - already tolerating soft diet. Follow-up w/ PCP for established iron infusions. ILYA CONNOLLY February 23, 2022 09:08
[2022-02-23 11:00] VITALS: BP 127/92
--- NOTE | 2022-02-23 11:03 | PDOC ---
[employer] PROGRESS NOTE Date of Service DOS: DATE: 02/23/22 TIME: 11:02 Chief Complaint Chief Complaint Intractable abdominal pain History of ulcerative colitis Anemia Rectal bleeding Diabetes GERD Anxiety Hypomagnesemia History of Present Illness History of Present Illness 02/23/2022 Patient seen exam Discussed with RN Chart reviewed Discussed with case management Vitals/I&O Vitals/I&O: Vital Signs Date Time Temp Pulse Resp B/P (MAP) Pulse Ox O2 Delivery O2 Flow Rate FiO2 02/23/22 08:54 20 Room Air 02/23/22 07:00 97.4 63 136/47 (76) 100 97.4 I & O 02/22/22 02/22/22 02/23/22 15:00 23:00 07:00 Intake Total 1000 ml 1000 ml Balance 1000 ml 1000 ml Physical Exam General: Alert, Oriented X3, Cooperative, severe distress Lungs: Clear Abdomen: Normal bowel sounds, Soft, No hepatosplenomegaly, No masses, Other (Left lower quadrant tenderness) Extremities: No clubbing, No cyanosis, No edema, Normal pulses, No tenderness/swelling Skin: No rashes, No breakdown, No significant lesion Labs Labs: Laboratory Tests Test 02/22/22 14:06 02/22/22 14:22 02/22/22 15:40 02/22/22 20:41 Urine Collection Type Unknown Urine Color (Auto) Colorless Urine Turbidity Clear Urine pH (Auto) 6.5 (<5.0-8.0) Urine Specific [place] 1.006 (1.000-1.030) Urine Protein (Auto) Negative mg/dL (Negative) Urine Glucose (Auto)(UA) Negative mg/dL (Negative) Urine Ketones (Auto) Negative mg/dL (Negative) Urine Blood (Auto) Large (Negative) Urine Nitrite Negative (Negative) Urine Bilirubin (Auto) Negative (Negative) Urine Urobilinogen (Auto) Normal mg/dL (Normal) Urine Leukocyte Esterase (Auto) Negative (Negative) Urine RBC >40 /HPF (0-2) Urine WBC Occ /HPF (0-4) Urine Bacteria 0 /HPF (0-FEW) Stool Occult Blood Positive (NEG) White Blood Count 4.3 x10^3/uL (4.0-11.0) Red Blood Count 3.30 x10^6/uL (3.50-5.40) Hemoglobin 7.4 g/dL (12.0-15.5) Hematocrit 23.6 % (36.0-47.0) Mean Corpuscular Volume 72 fL (79-100) Mean Corpuscular Hemoglobin 23 pg (25-35) Mean Corpuscular Hemoglobin Concent 31 g/dL (31-37) Red Cell Distribution Width 17.2 % (11.5-14.5) Platelet Count 304 x10^3/uL (140-400) Neutrophils (%) (Auto) 78 % (31-73) Lymphocytes (%) (Auto) 11 % (24-48) Monocytes (%) (Auto) 7 % (0-9) Eosinophils (%) (Auto) 3 % (0-3) Basophils (%) (Auto) 1 % (0-3) Neutrophils # (Auto) 3.4 x10^3/uL (1.8-7.7) Lymphocytes # (Auto) 0.5 x10^3/uL (1.0-4.8) Monocytes # (Auto) 0.3 x10^3/uL (0.0-1.1) Eosinophils # (Auto) 0.1 x10^3/uL (0.0-0.7) Basophils # (Auto) 0.0 x10^3/uL (0.0-0.2) Platelet Estimate Adequate (ADEQUATE) Hypochromasia Mod Poikilocytosis Slight Anisocytosis Slight Microcytosis Mod Ovalocytes Few Erythrocyte Sedimentation Rate 25 (0-25) Sodium Level 141 mmol/L (136-145) Potassium Level 3.6 mmol/L (3.5-5.1) Chloride Level 105 mmol/L (98-107) Carbon Dioxide Level 27 mmol/L (21-32) Anion Gap 9 (6-14) Blood Urea Nitrogen 12 mg/dL (7-20) Creatinine 0.7 mg/dL (0.6-1.0) Estimated GFR (Cockcroft-Gault) 87.9 BUN/Creatinine Ratio 17 (6-20) Glucose Level 106 mg/dL (70-99) Calcium Level 8.5 mg/dL (8.5-10.1) Magnesium Level 1.6 mg/dL (1.8-2.4) Total Bilirubin 0.3 mg/dL (0.2-1.0) Aspartate Amino Transf (AST/SGOT) 12 U/L (15-37) Alanine Aminotransferase (ALT/SGPT) 19 U/L (14-59) Alkaline Phosphatase 111 U/L (46-116) C-Reactive Protein, Quantitative 2.0 mg/L (0-3.3) Total Protein 6.8 g/dL (6.4-8.2) Albumin 3.3 g/dL (3.4-5.0) Albumin/Globulin Ratio 0.9 (1.0-1.7) Lipase 129 U/L (73-393) Glucose (Fingerstick) 275 mg/dL (70-99) Test 02/23/22 07:28 Glucose (Fingerstick) 170 mg/dL (70-99) Assessment and Plan Assessmemt and Plan Problems Medical Problems: (1) Chronic ulcerative colitis with rectal bleeding Status: Acute (2) Intractable pain Status: Acute Intractable abdominal pain - likely ulcerative colitis flare vs proctitis Acute anemia - type and screen, check iron levels. Likely due to UC flare, blood loss anemia, transfuse if Hb <7 Acute rectal bleeding -no clear hemorrhoids. Likely is ulcerative colitis flare. Will check for Salmonella Shigella Diabetes mellitus type 2 -sliding scale insulin. Her last A1c in 2019 was 6.1 GERD -lansoprazole Anxiety with depression - on Xanax as needed and Cymbalta nightly stopped taking trazodone. Also has insomnia on Lunesta Ulcerative colitis - sulfasalazine and bentyl Hypomagnesemia -likely due to GI losses. Will replace. FEN - GI soft diet. D5 half-normal saline with 20 mg of potassium chloride PPX -PPI, hold Lovenox due to active blood loss CODE STATUS full Dispo - inpatient DPOA: Father, Thomas Marks Comment Review of Relevant I have reviewed the following items [email or web address] (where applicable) has been applied. Medications: Current Medications Medications (Trade) Dose Ordered Sig/Ga Route PRN Reason Start Time Stop Time Status Last Admin Dose Admin Ringer's Solution 1,000 ml @ 1,000 mls/hr 1X ONCE IV 02/22/22 14:30 02/22/22 15:29 DC 02/22/22 14:30 Ondansetron HCl (Zofran) 4 mg 1X ONCE IVP 02/22/22 14:30 02/22/22 14:34 DC 02/22/22 15:30 Famotidine (Pepcid Vial) 20 mg 1X ONCE IVP 02/22/22 14:30 02/22/22 14:34 DC 02/22/22 15:29 Morphine Sulfate (Morphine Sulfate) 2 mg 1X ONCE IVP 02/22/22 14:30 02/22/22 14:34 DC 02/22/22 15:30 Iohexol (Omnipaque 300 Mg/ml) 75 ml 1X ONCE IV 02/22/22 15:30 02/22/22 15:31 DC 02/22/22 15:30 Morphine Sulfate (Morphine Sulfate) 2 mg 1X ONCE IVP 02/22/22 17:00 02/22/22 17:01 DC 02/22/22 16:56 Hydromorphone HCl (Dilaudid) 1 mg 1X ONCE IVP 02/22/22 17:45 02/22/22 17:46 DC 02/22/22 17:57 Methylprednisolone Sodium Succinate (SOLU-Medrol 40MG VIAL) 80 mg 1X ONCE IV 02/22/22 17:45 02/22/22 17:46 DC 02/22/22 17:56 Hydromorphone HCl (Dilaudid) 1 mg PRN Q3HRS PRN IVP SEVERE PAIN, 2nd CHOICE 02/22/22 18:00 02/23/22 08:54 Oxycodone HCl (Roxicodone) 5 mg PRN Q6HRS PRN PO MODERATE PAIN, 2nd CHOICE 02/22/22 18:00 02/23/22 07:50 Magnesium Sulfate 100 ml @ 25 mls/hr 1X ONCE IV 02/22/22 18:00 02/22/22 21:59 DC 02/22/22 18:21 Potassium Chloride/Dextrose/ Sod Cl 1,000 ml @ 100 mls/hr Q10H ONCE IV 02/22/22 18:00 02/23/22 03:59 DC 02/22/22 18:17 Methylprednisolone Sodium Succinate (SOLU-Medrol 125MG VIAL) 60 mg Q6HRS IV 02/23/22 00:00 02/23/22 10:25 DC 02/23/22 06:16 Duloxetine HCl (Cymbalta) 120 mg QHS PO 02/22/22 21:00 02/22/22 20:23 Pantoprazole Sodium (Protonix) 40 mg DAILYAC PO 02/23/22 07:30 02/23/22 07:49 Sulfasalazine (Azulfidine) 500 mg BID PO 02/22/22 21:00 02/23/22 07:50 Dicyclomine HCl (Bentyl) 10 mg PRN Q4HRS PRN PO ABDOMINAL CRAMPS 02/22/22 18:30 02/23/22 07:50 Insulin Human Lispro (HumaLOG) 0-9 UNITS TIDACHC SQ 02/22/22 21:00 02/23/22 09:01 Justifications for Admission Other Justification Ulcerative colitis flare CIERRA QUINTERO III DO February 23, 2022 11:02
[2022-02-23] MEDS ORDERED: OXYC5TAB4 PO (11:06)
[2022-02-23] MEDS ORDERED: PRED20TA PO (11:06)
[2022-02-23] MEDS ORDERED: SULF500T PO (11:06)
[2022-02-23] MEDS ORDERED: DICY10CA3 PO (11:06)
[2022-02-23] MEDS ORDERED: ALPR1TAB PO (11:06)
[2022-02-23 11:50] LABS: HEMATOCRIT 25.3 % (36.0-47.0); HEMOGLOBIN 7.9 g/dL (12.0-15.5); RED BLOOD COUNT 3.51 x10^6/uL (3.50-5.40); WHITE BLOOD COUNT 4.3 x10^3/uL (4.0-11.0)
--- NOTE | 2022-02-23 12:00 | NUR ---
spoke with Dr. palacios regarding Lela's unwillingness to go home. she states that her pain uin uncontrolled.The dr said he was going to increase pain medication. informed that she could go home if she tolerated food. she said that her pain is not been taken care of.
[2022-02-23 12:02] LABS: CALCIUM 9.1 mg/dL (8.5-10.1); CREATININE 0.9 mg/dL (0.6-1.0); GFR 65.8; POTASSIUM 4.1 mmol/L (3.5-5.1)
[2022-02-23 15:00] VITALS: BP 159/97
[2022-02-23] MEDS ORDERED: FERROUS SULFATE 325 MG TABLET. PO SCH (17:00)
--- NOTE | 2022-02-23 20:45 | DS ---
DATE OF DISCHARGE: 02/23/2022 ADMISSION DIAGNOSES: Abdominal pain with history of ulcerative colitis. DISCHARGE DIAGNOSES: Resolved abdominal pain, history of ulcerative colitis, gastroesophageal reflux disease, diverticulosis, status post cholecystectomy, hepatic steatosis. CONSULTS: GI. PROCEDURES: None. HOSPITAL COURSE: The patient is a pleasant, middle-aged female who has a history of ulcerative colitis. She was admitted with abdominal pain. We consulted GI. We gave her pain meds, fluids and steroids. Today, I saw and examined her. She is at her baseline. Basically only wants to talk about Dilaudid. I am going to discharge with close outpatient followup. DISPOSITION: Home. ACTIVITY: As tolerated. DIET: Low sodium. DISCHARGE MEDICATIONS: Please see the MRAD. MEDICATIONS: I did send a prescription for p.r.n. oxycodone 5 mg every 6 hours, prednisone 40 a day, sulfasalazine 500 b.i.d., dicyclomine 10 every 6 hours p.r.n. and we will continue her home Xanax, Cymbalta, Prevacid, lidocaine patches, Zofran, simvastatin and trazodone. TOTAL TIME: 32 minutes. CATARINO/REBECCA DR: Cory TID: [id number]
[2022-02-24] MEDS ORDERED: predniSONE 20 MG TABLET PO SCH (09:00)
--- NOTE | 2022-02-24 18:32 | NUR ---
late note. dismissed to home on 02/23/22 at 1935. torito bill.
== END 2022-02-23 19:35 | disposition home or self-care (01) | DRG 387 ==
LOC: ER 13:39 → 4 NORTH 17:41 → ER 18:27
PROVIDERS: ADMIT Internal Medicine; ATTEND Internal Medicine
DX: K51.911 Ulcerative colitis, unspecified with rectal bleeding (principal); D50.0 Iron deficiency anemia secondary to blood loss (chronic); E11.9 Type 2 diabetes mellitus without complications; E78.00 Pure hypercholesterolemia, unspecified; E78.5 Hyperlipidemia, unspecified; E83.42 Hypomagnesemia; F32.A Depression, unspecified; F41.9 Anxiety disorder, unspecified; G47.00 Insomnia, unspecified; G89.29 Other chronic pain; I10 Essential (primary) hypertension; K21.9 Gastro-esophageal reflux disease without esophagitis; K29.70 Gastritis, unspecified, without bleeding; K57.90 Diverticulosis of intestine, part unspecified, without perforation or abscess without bleeding; K62.3 Rectal prolapse; K76.0 Fatty (change of) liver, not elsewhere classified; Z81.8 Family history of other mental and behavioral disorders; Z90.49 Acquired absence of other specified parts of digestive tract; Z90.710 Acquired absence of both cervix and uterus; M19.90 Unspecified osteoarthritis, unspecified site; Z88.8 Allergy status to other drugs, medicaments and biological substances
CPT/HCPCS: 36415; 74177; 80048; 80053; 81001; 82274; 82607; 82962; 83540; 83550; 83690; 83735; 85025; 85027; 85651; 86140; 86850; 86900; 86901; 96361; 96365; 96368; 96375; 96376; J1170; J1815; J2270; J2405; J2920; J2930; J3475; J3480; J3490; J7120; Q9967; 99285-25; G0378

== ENCOUNTER 2022-03-16 12:29 | Emergency (ER) | payer OTHER ==
[~2022-03-16] VITALS: Ht 162.6 cm; Wt 104.4 kg
[~2022-03-16 12:29] MED LIST changes: +DICY10CA3 PO; +OXYC5TAB4 PO; +SULF500T PO
[2022-03-16] MEDS ORDERED: IV RINGERS,LACTATED 1000ML 1,000 ML IV SCH (13:30)
[2022-03-16] MEDS ORDERED: MORPHINE SULFATE 4 MG/ML INJ. IVP ONE (14:15)
[2022-03-16] MEDS ORDERED: MORPHINE SULFATE 2 MG/ML INJ. ONE (14:16)
[2022-03-16 14:20] LABS: BASO # 0.1 x10^3/uL (0.0-0.2); BASO % 1 % (0-3); EOS # 0.1 x10^3/uL (0.0-0.7); EOS % 2 % (0-3); HEMATOCRIT 30.1 % (36.0-47.0); HEMOGLOBIN 9.5 g/dL (12.0-15.5); LYMPH # 0.6 x10^3/uL (1.0-4.8); LYMPH % 13 % (24-48); MEAN CORPUSCULAR HEMOGLOBIN 23 pg (25-35); MEAN CORPUSCULAR HGB CONC 32 g/dL (31-37); MEAN CORPUSCULAR VOLUME 74 fL (79-100); MONO # 0.4 x10^3/uL (0.0-1.1); MONO % 9 % (0-9); NEUT # 3.2 x10^3/uL (1.8-7.7); NEUT % 75 % (31-73); PLATELET COUNT 347 x10^3/uL (140-400); RED BLOOD COUNT 4.09 x10^6/uL (3.50-5.40); RED CELL DISTRIBUTION WIDTH 18.3 % (11.5-14.5); WHITE BLOOD COUNT 4.2 x10^3/uL (4.0-11.0)
[2022-03-16 14:38] LABS: CALCIUM 9.1 mg/dL (8.5-10.1); CREATININE 0.7 mg/dL (0.6-1.0); GFR 87.9; POTASSIUM 3.7 mmol/L (3.5-5.1)
[2022-03-16 14:44] LABS: ALBUMIN 3.6 g/dL (3.4-5.0); ALBUMIN/GLOBULIN RATIO 1.1 (1.0-1.7); C-REACTIVE PROTEIN 4.2 mg/L (0-3.3); TOTAL BILIRUBIN 0.3 mg/dL (0.2-1.0)
[2022-03-16 15:22] LABS: BACTERIA,URINE FEW /HPF (0-FEW); RBC,URINE 0 /HPF (0-2)
[2022-03-16] MEDS ORDERED: MORPHINE SULFATE 4 MG/ML INJ. IV PRN (16:00)
--- NOTE | 2022-03-16 16:20 | PHYS DOC ---
Past Medical History Past Medical History: Anxiety, Diabetes-Type II, GERD, High Cholesterol, Hypertension Additional Past Medical Histor: ULCERATIVE COLITIS Past Surgical History: Appendectomy, Cholecystectomy, Hysterectomy, Other Additional Past Surgical Histo: HERNIA REPAIR,FISTULA REPAIR,RECTAL PROLAPSE,PLATE & SCREWS IN CHEST Smoking Status: Never Smoker Alcohol Use: None Drug Use: None General Adult EDM: Chief Complaint: ABDOMINAL PAIN HPI: HPI: Patient is a 51 year old female with a history of ulcerative colitis who presents to the emergency department today with complaints of abdominal pain. Patient states she began to have left lower quadrant abdominal pain about 8:00 last night. She states she took her home pain medications and nausea medications that she has some nausea and vomiting as well. She states she had a couple of bloody stools. Given her continued pain this morning she decided to present to emergency department for evaluation. She describes the pain as sharp. There are no palliative or provocative factors for the pain. The pain does not radiate. She states pain is about an 8 out of 10. It has been relatively constant. She denies any fevers or chills. Review of Systems: Review of Systems: Constitutional: Denies fever or chills. [] Eyes: Denies change in visual acuity. [] HENT: Denies nasal congestion or sore throat. [] Respiratory: Denies cough or shortness of breath. [] Cardiovascular: Denies chest pain or edema. [] GI: Positive for abdominal pain [] : Denies dysuria. Musculoskeletal: Denies back pain or joint pain. [] Integument: Denies rash. [] Neurologic: Denies headache, focal weakness or sensory changes. [] Endocrine: Denies polyuria or polydipsia. [] Lymphatic: Denies swollen glands. [] Psychiatric: Denies depression or anxiety. [] Heart Score: C/O Chest Pain: No Family History: Family History: Noncontributory Current Medications: Current Medications Medications (Trade) Dose Ordered Sig/Ga Start Time Stop Time Status Last Admin Dose Admin Morphine Sulfate (Morphine Sulfate) 4 mg ONCE PRN 03/16/22 16:00 03/16/22 18:00 Ringer's Solution 1,000 ml @ 1,000 mls/hr Q1H 03/16/22 13:30 03/16/22 14:29 DC 03/16/22 13:30 1,000 MLS/HR Allergies: Allergies: Allergies Coded Allergies Type Severity Reaction Last Updated Verified cephalexin Allergy Intermediate rash, red ears 03/16/22 Yes ketorolac Allergy Intermediate HIVES 03/16/22 Yes prochlorperazine Allergy Intermediate 03/16/22 Yes droperidol Adverse Reaction Mild anxiety 03/16/22 Yes Physical Exam: PE: Constitutional: Well developed, well nourished, no acute distress, non-toxic appearance. [] HENT: Normocephalic, atraumatic, bilateral external ears normal, oropharynx moist, no oral exudates, nose normal. [] Eyes: PERRLA, EOMI, conjunctiva normal, no discharge. [] Neck: Normal range of motion, no tenderness, supple, no stridor. [] Cardiovascular:Heart rate regular rhythm, no murmur [] Lungs & Thorax: Bilateral breath sounds clear to auscultation [] Abdomen: Bowel sounds normal, soft, no tenderness, no masses, no pulsatile masses. [] Skin: Warm, dry, no erythema, no rash. [] Back: No tenderness, no CVA tenderness. [] Extremities: No tenderness, no cyanosis, no clubbing, ROM intact, no edema. [] Neurologic: Alert and oriented X 3, normal motor function, normal sensory function, no focal deficits noted. [] Psychologic: Affect normal, judgement normal, mood normal. [] Current Patient Data: Labs: Laboratory Tests Test 03/16/22 14:00 03/16/22 14:38 White Blood Count 4.2 x10^3/uL (4.0-11.0) Red Blood Count 4.09 x10^6/uL (3.50-5.40) Hemoglobin 9.5 g/dL (12.0-15.5) L Hematocrit 30.1 % (36.0-47.0) L Mean Corpuscular Volume 74 fL (79-100) L Mean Corpuscular Hemoglobin 23 pg (25-35) L Mean Corpuscular Hemoglobin Concent 32 g/dL (31-37) Red Cell Distribution Width 18.3 % (11.5-14.5) H Platelet Count 347 x10^3/uL (140-400) Neutrophils (%) (Auto) 75 % (31-73) H Lymphocytes (%) (Auto) 13 % (24-48) L Monocytes (%) (Auto) 9 % (0-9) Eosinophils (%) (Auto) 2 % (0-3) Basophils (%) (Auto) 1 % (0-3) Neutrophils # (Auto) 3.2 x10^3/uL (1.8-7.7) Lymphocytes # (Auto) 0.6 x10^3/uL (1.0-4.8) L Monocytes # (Auto) 0.4 x10^3/uL (0.0-1.1) Eosinophils # (Auto) 0.1 x10^3/uL (0.0-0.7) Basophils # (Auto) 0.1 x10^3/uL (0.0-0.2) Erythrocyte Sedimentation Rate 30 (0-25) H Sodium Level 143 mmol/L (136-145) Potassium Level 3.7 mmol/L (3.5-5.1) Chloride Level 105 mmol/L (98-107) Carbon Dioxide Level 25 mmol/L (21-32) Anion Gap 13 (6-14) Blood Urea Nitrogen 11 mg/dL (7-20) Creatinine 0.7 mg/dL (0.6-1.0) Estimated GFR (Cockcroft-Gault) 87.9 BUN/Creatinine Ratio 16 (6-20) Glucose Level 115 mg/dL (70-99) H Calcium Level 9.1 mg/dL (8.5-10.1) Total Bilirubin 0.3 mg/dL (0.2-1.0) Aspartate Amino Transferase (AST) 9 U/L (15-37) L Alanine Aminotransferase (ALT) 18 U/L (14-59) Alkaline Phosphatase 122 U/L (46-116) H C-Reactive Protein, Quantitative 4.2 mg/L (0-3.3) H Total Protein 7.0 g/dL (6.4-8.2) Albumin 3.6 g/dL (3.4-5.0) Albumin/Globulin Ratio 1.1 (1.0-1.7) Lipase 124 U/L (73-393) Urine Collection Type Unknown Urine Color (Auto) Colorless Urine Turbidity Clear Urine pH (Auto) 7.0 (<5.0-8.0) Urine Specific Hunt 1.009 (1.000-1.030) Urine Protein (Auto) Negative mg/dL (Negative) Urine Glucose (Auto)(UA) Negative mg/dL (Negative) Urine Ketones (Auto) Negative mg/dL (Negative) Urine Blood (Auto) Negative (Negative) Urine Nitrite Negative (Negative) Urine Bilirubin (Auto) Negative (Negative) Urine Urobilinogen (Auto) Normal mg/dL (Normal) Urine Leukocyte Esterase (Auto) Small (Negative) Urine RBC 0 /HPF (0-2) Urine WBC 1-4 /HPF (0-4) Urine Squamous Epithelial Cells Mod /LPF Urine Bacteria Few /HPF (0-FEW) Laboratory Tests 03/16/22 14:00 Laboratory Tests 03/16/22 14:00 Vital Signs: Vital Signs Date Time Temp Pulse Resp B/P (MAP) Pulse Ox O2 Delivery O2 Flow Rate FiO2 03/16/22 15:05 104 14 161/111 (128) 95 03/16/22 14:20 Room Air 03/16/22 12:32 98.2 98.2 Radiology/Procedures: Impression: Ulcerative colitis Course & Med Decision Making: Course & Med Decision Making Patient remained hemodynamically stable in the emergency department. She was evaluated at the bedside with a physical exam. She was given morphine for pain control as well as Zofran for nausea. Basic labs obtained and unremarkable except for mildly elevated CRP and ESR. Given the elevation of inflammatory ma rkers this presentation could be consistent with an early UC flare. Patient was given a second dose of IV morphine, and on reassessment her pain has resolved. We will discharge her home and have her follow-up with Dr. Pena this week. Charbel Disclaimer: Charbel Disclaimer: This electronic medical record was generated, in whole or in part, using a voice recognition dictation system. Departure Departure Impression: Primary Impression: Ulcerative colitis Disposition: HOME / SELF CARE / HOMELESS Condition: IMPROVED Referrals: UNKNOWN PCP NAME (PCP) DAKSHA PENA MD Patient Instructions: Ulcerative Colitis JOSEP HILLMAN MD March 16, 2022 16:20
[2022-03-16 16:54] VITALS: BP 153/85
== END 2022-03-16 17:01 | disposition home or self-care (01) ==
LOC: ER 12:29
DX: R10.32 Left lower quadrant pain (principal); R11.2 Nausea with vomiting, unspecified; E11.9 Type 2 diabetes mellitus without complications; K21.9 Gastro-esophageal reflux disease without esophagitis; E78.00 Pure hypercholesterolemia, unspecified; I10 Essential (primary) hypertension; Z90.89 Acquired absence of other organs; Z90.49 Acquired absence of other specified parts of digestive tract; Z90.710 Acquired absence of both cervix and uterus; Z88.1 Allergy status to other antibiotic agents; Z88.6 Allergy status to analgesic agent; Z88.8 Allergy status to other drugs, medicaments and biological substances
CPT/HCPCS: 36415; 80053; 81001; 83690; 85025; 85651; 86140; 87086; 96361; 96374; 96376; 99285; J2270; J7120